=== PATIENT | female | born 1960 | race Caucasian/White ===

== ENCOUNTER → 2017-09-04 13:41 | Outpatient (CLI) | payer OTHER, SELFPAY ==
--- NOTE | 2017-09-04 13:47 | RAD_ITS ---
STUDY: X-RAY - LUMBAR SPINE REASON FOR EXAM: Female, 57 years old. LBP, bilateral leg pain, left more than right TECHNIQUE: 3 view(s) of the lumbar spine were obtained. COMPARISON: None FINDINGS: Normal lumbar lordosis. There is minimal multilevel endplate spondylosis of the lumbar vertebrae. There is multi-level degenerative disc disease with multi-level disc space narrowing. The soft tissue structures are unremarkable. RAD/Lumbar Spine 2 or 3 Views IMPRESSION: Mild degenerative changes of the spine. Electronically Signed: Lidia Villarreal MD at 8:31 EDT Tel , Service support ,
--- NOTE | 2017-09-04 13:47 | RAD_ITS ---
STUDY: X-RAY - LEFT KNEE REASON FOR EXAM: Female, 57 years old. left knee pain -- NKI TECHNIQUE: 4 view(s) of the knee. COMPARISON: None. FINDINGS: Normal visualized distal femur. Normal visualized proximal tibia and fibula. Normal proximal tibiofibular articulation. There is moderate degenerative arthrosis of the medial femorotibial compartment. There is degenerative arthrosis of the lateral femorotibial compartment. There is degenerative arthrosis of the patellofemoral articulation. The soft tissue structures are unremarkable. RAD/Knee 4 or More Views IMPRESSION: Degenerative arthrosis. Electronically Signed: Lidia Villarreal MD at 8:31 EDT Tel , Service support ,
--- NOTE | 2017-09-04 14:30 | VDLE_ITS ---
Reason For Study: LEG PAIN AND SWELLING RIGHT LEFT GSV is normal. GSV is normal. CFV is compressible, spontaneous, phasic, CFV is compressible, spontaneous, phasic, competent and demonstrates normal competent, and demonstrates normal augmentation. augmentation. FV is compressible, spontaneous, phasic, FV is compressible, spontaneous, phasic, competent and demonstrates normal competent and demonstrates normal augmentation. augmentation. POP V is compressible, spontaneous, phasic, POP V is compressible, spontaneous, phasic, competent and demonstrates normal competent and demonstrates normal augmentation. augmentation. T/P Trunk is compressible. T/P Trunk is compressible. PTV is compressible. PTV is compressible. RT PerV is compressible. LT PerV is compressible. Procedure Exam performed in department. A preliminary report was called and/or faxed to Dr. matos. Interpretation Summary Deep veins of the lower extremities are bilaterally patent and compressible segmentally. There is no evidence of deep vein thrombosis on either side. Valvular competence appears intact within the proximal deep venous systems bilaterally. The greater saphenous veins appear bilaterally patent and compressible segmentally. Ordering Physician: Win Matos Referring Physician: Win Matos Chi Performed By: Dayana Grady RVT
== END ==
PROVIDERS: Family Provider Family Medicine Geriatric Medicine; PCP Family Medicine Geriatric Medicine; Visit Provider Family Medicine Geriatric Medicine
DX: M54.5 Low back pain (principal); M25.569 Pain in unspecified knee; R60.0 Localized edema
CPT/HCPCS: 72100; 73564; 93970

== ENCOUNTER → 2017-09-17 17:08 | Outpatient (CLI) | payer OTHER, SELFPAY ==
[2017-09-17 17:37] LABS: Absolute Lymphocyte Count 1.94 X10^3/ul (0.83-4.51); Absolute Neutrophil Count 5.8 X10^3/uL (2.0-7.7); Basophil# 0.01 X10^3/uL; Basophil% 0.1 % (0-1); Eosinophils% 1.2 % (0-5); Hematocrit 40.8 % (37-47); Lymphocyte # 1.94 X10^3/ul (4.0); Lymphocyte % 22.7 % (19-41); Mean Corp Hgb Conc 31.9 g/gl (32-36); Mean Corpuscular Hgb 27.3 pg (27.0-32.0); Mean Corpuscular Volume 85.7 fL (81-99); Mean Platelet Vol. 9.6 fl (6.2-12.0); Monocyte# 0.69 X10^3/uL; Monocyte% 8.1 % (0-10); Neutrophil % 67.7 % (47-70); Platelet Count 221 K/mm3 (150-450); RBC Distribution Width CV 14.1 % (11.6-14.6); RBC Distribution Width SD 44.1 fl (35.1-43.9); Red Blood Count 4.76 M/mm3 (4.2-5.4); White Blood Count 8.6 K/mm3 (4.4-11.0)
[2017-09-17 17:38] LABS: POSITIVE COUNT NO; POSITIVE DIFFERENTIAL NO; POSITIVE MORPHOLOGY NO
[2017-09-17 18:33] LABS: ALB/GLOB Ratio 0.9 RATIO (0.9-2.4); AST(SGOT) 16 U/L (15-37); Alanine Aminotransfer ALT/SGPT 25 U/L (13-56); Albumin, Serum 3.5 g/dL (3.2-5.0); Alkaline Phosphatase 65 U/L (45-117); Anion Gap 4 (5-15); BUN 21 mg/dL (7-18); BUN/Creat Ratio 23.8 RATIO (10-20); Calcium,Total 8.5 mg/dL (8.5-10.1); Chloride 104 mmol/L (98-107); Creatinine, Serum 0.88 mg/dL (0.55-1.02); EST Glomerular Filtration Rate 70 mL/min (>60); Est Glom Filt Rate - Afr Amer 85 mL/min (>60); Globulin 3.8 g/dL (2.2-4.2); Glucose 91 mg/dL (74-106); Protein, Total 7.3 g/dL (6.4-8.2); Sodium Level 138 mmol/L (136-145); Thyroid Stim Hormone (TSH) 1.85 uIU/mL (0.358-3.74)
[2017-09-19 07:14] LABS: Hep C Antibodies <0.1 s/co ratio (0.0-0.9)
== END ==
PROVIDERS: Family Provider Family Medicine Geriatric Medicine; PCP Family Medicine Geriatric Medicine; Visit Provider Family Medicine Geriatric Medicine
DX: I10 Essential (primary) hypertension (principal); Z13.89 Encounter for screening for other disorder
CPT/HCPCS: 36415; 80053; 84443; 85025; 86803

== ENCOUNTER → 2017-09-24 10:37 | Outpatient (CLI) | payer OTHER, SELFPAY ==
--- NOTE | 2017-09-24 10:41 | US_ITS ---
STUDY: SUPERFICIAL ULTRASOUND - PERISTERNAL SOFT TISSUES. REASON FOR EXAM: Female, 57 years old. Lump, mass, palpable. Lipoma? TECHNIQUE: A superficial ultrasound was performed with real-time and static valladares-scale imaging. COMPARISON: None. FINDINGS: Normal subcutaneous fat. No lipoma or other mass and no abnormal fluid collection. US/Chest IMPRESSION: Normal superficial soft tissue ultrasound. Electronically Signed: Óscar Lomax, at 14:59 EDT Tel , Service support ,
== END ==
PROVIDERS: Family Provider Family Medicine Geriatric Medicine; PCP Family Medicine Geriatric Medicine; Visit Provider Family Medicine Geriatric Medicine
DX: D17.9 Benign lipomatous neoplasm, unspecified (principal)
CPT/HCPCS: 76604

== ENCOUNTER → 2018-01-22 15:50 | Outpatient (CLI) | payer OTHER, SELFPAY ==
--- NOTE | 2018-01-22 15:53 | RAD_ITS ---
STUDY: X-RAY CHEST REASON FOR EXAM: Female, 57 years old. Cough TECHNIQUE: Frontal and lateral views of the chest COMPARISON: None. FINDINGS: The lungs are clear. There are no pleural effusions. There is no pneumothorax. The heart is normal in size. The visualized osseous structures are within normal limits. RAD/Chest PA and Lateral IMPRESSION: Clear lungs. Electronically Signed: Ethan Lauren, at 16:34 EDT Tel , Service support ,
[2018-01-22 17:19] LABS: Absolute Lymphocyte Count 1.14 X10^3/ul (0.83-4.51); Absolute Neutrophil Count 5.8 X10^3/uL (2.0-7.7); Basophil# 0.02 X10^3/uL; Basophil% 0.3 % (0-1); Eosinophil# 0.08 X10^3/uL; Hematocrit 39.7 % (37-47); Hemoglobin 13.1 g/dl (12.0-15.0); Lymphocyte # 1.14 X10^3/ul (4.0); Lymphocyte % 14.8 % (19-41); Mean Corpuscular Hgb 28.2 pg (27.0-32.0); Mean Corpuscular Volume 85.6 fL (81-99); Mean Platelet Vol. 10.7 fl (6.2-12.0); Monocyte# 0.68 X10^3/uL; Monocyte% 8.8 % (0-10); Neutrophil # 5.78 X10^3/uL (2.7-7.7); Platelet Count 252 K/mm3 (150-450); RBC Distribution Width CV 12.7 % (11.6-14.6); RBC Distribution Width SD 38.4 fl (35.1-43.9); Red Blood Count 4.64 M/mm3 (4.2-5.4); White Blood Count 7.7 K/mm3 (4.4-11.0)
[2018-01-22 17:28] LABS: International Normalized Ratio 0.9; Prothrombin Time (Protime)PT. 12.5 SECONDS (11.7-14.9)
[2018-01-22 17:29] LABS: Partial Thromboplast Time 28.1 Seconds (24.1-36.2)
[2018-01-22 17:42] LABS: POSITIVE COUNT NO; POSITIVE DIFFERENTIAL NO; POSITIVE MORPHOLOGY NO
[2018-01-27 03:06] LABS: Alternaria alternata <0.10 kU/L (Class 0); Bermuda Grass <0.10 kU/L (Class 0); Bluegrass, Kentucky <0.10 kU/L (Class 0); Cat Hair/Dander, Standard <0.10 kU/L (Class 0); D farinae Mite <0.10 kU/L (Class 0); D pteronyssinus <0.10 kU/L (Class 0); Dog Epithelia <0.10 kU/L (Class 0); Elm, American White <0.10 kU/L (Class 0); Oak, White <0.10 kU/L (Class 0); Plantain, English <0.10 kU/L (Class 0); Ragweed, Short/Common <0.10 kU/L (Class 0)
[2018-01-27 14:48] LABS: Mouse Urine <0.10 kU/L (Class 0)
== END ==
LOC: POLAB3 15:50 → RAD 15:52
PROVIDERS: Family Provider Family Medicine Geriatric Medicine; PCP Family Medicine Geriatric Medicine; Referring Provider Family Medicine Geriatric Medicine; Visit Provider Family Medicine Geriatric Medicine
DX: R05 Cough (principal); D68.8 Other specified coagulation defects; T78.40XA Allergy, unspecified, initial encounter
CPT/HCPCS: 36415; 71046; 85025; 85610; 85730; 86003

== ENCOUNTER → 2018-01-28 15:56 | Outpatient (CLI) | payer OTHER, SELFPAY ==
[2018-01-28 16:47] LABS: Erythrocyte Sedimentation Rate 8 mm/hr (0-30)
[2018-01-28 16:59] LABS: Vitamin B12 343 pg/mL (211-911)
== END ==
PROVIDERS: Family Provider Family Medicine Geriatric Medicine; PCP Family Medicine Geriatric Medicine; Visit Provider Family Medicine Geriatric Medicine
DX: G60.9 Hereditary and idiopathic neuropathy, unspecified (principal)
CPT/HCPCS: 36415; 82607; 85652

== ENCOUNTER → 2018-02-02 15:44 | Outpatient (CLI) | payer OTHER, SELFPAY ==
--- NOTE | 2018-02-02 15:46 | BI_ITS ---
MAMMOGRAPHY - BILATERAL SCREENING REASON FOR EXAM: Female, 57 years old. Routine annual screening examination. PERTINENT HISTORY: Non-contributory. TECHNIQUE: Digital bilateral breast jose ramon (3D mammographic acquisition) in the CC and MLO projections. 2-D mediolateral oblique (MLO) and craniocaudad (CC) views of both breasts were obtained. CAD: Full Field Digital Mammography with Computer Added Detection was performed. COMPARISON: Comparison is made with prior mammogram dated April 09, 2016 and April 05, 2015. FINDINGS: Breast Composition: The breasts are heterogeneously dense, which may obscure small masses. There are no dominant masses or suspicious calcifications. No other significant abnormalities are identified. There has been no significant change since the prior study. BI/SCREENING MAMM (CAD), BILAT IMPRESSION: Stable bilateral screening mammogram. Yearly follow-up mammogram recommended. (A) ASSESSMENT CATEGORY: BIRADS Category 1: Negative. A letter regarding these results will be sent to the patient by the facility within 30 days. Approximately 10% of breast cancers are not detected by mammography. A normal mammogram should not delay biopsy of a clinically suspicious abnormality. [id number] Electronically Signed: Charli Ramirez MD at 8:37 EDT Tel [phone], Service support ,
== END ==
PROVIDERS: Family Provider Family Medicine Geriatric Medicine; PCP Family Medicine Geriatric Medicine; Referring Provider Family Medicine Geriatric Medicine; Visit Provider Family Medicine Geriatric Medicine
DX: Z12.31 Encounter for screening mammogram for malignant neoplasm of breast (principal)
CPT/HCPCS: 77063; 77067

== ENCOUNTER → 2018-02-10 17:22 | Outpatient (CLI) | payer OTHER, SELFPAY ==
--- NOTE | 2018-02-10 16:30 | CER_PTH ---
PATIENT: ELIZABETH MACKENZIE LOC: [facility] #:[id number] AGE/SX: 64/F ROOM: RE02/10/[address]: Dr. Robina Castrejon MD : 1960 BED: DIS: SPEC #: [id number] RECD: 02/10/18 17:12 STATUS: ERVIN PASCALE #: [id number] JACKELINE: 02/10/18 16:[address]: Robina Ramirez DEPT: SURGICAL PATHOLOGY RECD BY: Karl George ENTERED: 02/11/18 10:06 SP TYPE: CERV OTHR DR: Dr. Win Matos MD Tissues: Uterine cervix, NOS Procedures: Surgery Specimen Level IV HEADER OPERATION: Polypectomy PRE-OP DIAGNOSIS: Cervical polyp TISSUE SUBMITTED: Cervical polyp MICROSCOPIC DIAGNOSIS Cervical polyp, polypectomy: Fragments of inflamed benign endocervical polyp with acute and chronic inflammation and squamous metaplasia. SJ:jana 11/8/18 MICROSCOPIC DESCRIPTION Slides are reviewed. GROSS DESCRIPTION Received in fixative is one container labeled with the patient's name and designated cervical polyp. The specimen consists of multiple fragments of hemorrhagic mucoid tissue that in aggregate measure 2.5 x 1 x 0.2 cm. The specimen is totally submitted in one cassette. / SJ:rg 02/11/18 TC:5 CPT: 67350
[2018-02-14 10:46] LABS: HPV APTIMA, High Risk Negative (Negative)
== END ==
PROVIDERS: Family Provider Family Medicine Geriatric Medicine; PCP Family Medicine Geriatric Medicine; Referring Provider Obstetrics & Gynecology; Visit Provider Obstetrics & Gynecology
DX: N39.0 Urinary tract infection, site not specified (principal); Z12.4 Encounter for screening for malignant neoplasm of cervix
CPT/HCPCS: 87086; 87088; 87624; 88175; 88305; G0145

== ENCOUNTER 2018-03-19 08:56 | Day surgery (SDC) | payer OTHER, SELFPAY ==
[2018-03-12 17:51] LABS: Hemoglobin 12.8 g/dl (12.0-15.0); Mean Corp Hgb Conc 32.8 g/gl (32-36); Mean Corpuscular Hgb 27.6 pg (27.0-32.0); Mean Corpuscular Volume 84.1 fL (81-99); Mean Platelet Vol. 10.2 fl (6.2-12.0); Platelet Count 248 K/mm3 (150-450); RBC Distribution Width CV 13.1 % (11.6-14.6); RBC Distribution Width SD 39.4 fl (35.1-43.9); Red Blood Count 4.64 M/mm3 (4.2-5.4); White Blood Count 6.4 K/mm3 (4.4-11.0)
[2018-03-12 17:53] LABS: Scan Indicated on CBC? Y/N NO
[2018-03-12 17:57] LABS: Prothrombin Time (Protime)PT. 12.8 SECONDS (11.7-14.9)
[2018-03-12 17:58] LABS: Partial Thromboplast Time 27.6 Seconds (24.1-36.2)
[2018-03-12 18:48] LABS: Anion Gap 9 (5-15); BUN 22 mg/dL (7-18); BUN/Creat Ratio 26.3 RATIO (10-20); Calcium,Total 8.9 mg/dL (8.5-10.1); Chloride 104 mmol/L (98-107); Creatinine, Serum 0.84 mg/dL (0.55-1.02); EST Glomerular Filtration Rate 74 mL/min (>60); Est Glom Filt Rate - Afr Amer 90 mL/min (>60); Follicle Stimulating Hormone 85.9 mIU/mL; Glucose 89 mg/dL (74-106); Potassium 3.4 mmol/L (3.5-5.1); Sodium Level 141 mmol/L (136-145)
[2018-03-19] VITALS (10 sets, daily range): BP systolic 123–137; BP diastolic 76–98; PULSE 86–121; RESP 14–16; TEMP 36.2–36.9; O2SAT 94–97; BMI 41.4
--- NOTE | 2018-03-19 | EMB_PTH ---
PATIENT: ELIZABETH MACKENZIE LOC: [facility] [place] U#:[id number] AGE/SX: 57/F ROOM: RE03/19/[address]: Dr. Robina Castrejon MD : 1960 BED: DIS: 03/19/2018 SPEC #: [id number] RECD: 03/19/18 13:12 STATUS: ERVIN REDeja #: [id number] JACKELINE: 03/19/18 00:[address]: Robina Ramirez DEPT: SURGICAL PATHOLOGY RECD BY: Brian Cosme ENTERED: 03/19/18 13:12 SP TYPE: ENDOM BX/C OTHR DR: Dr. Win Matos MD Tissues: Endometrium, NOS Procedures: Surgery Specimen Level IV HEADER OPERATION: Hysteroscopy, dilation and curettage, polypectomy, Symphion PRE-OP DIAGNOSIS: Polyp of cervix uteri and postmenopausal bleeding TISSUE SUBMITTED: Endometrial curettings MICROSCOPIC DIAGNOSIS Endometrium, curettings: Polypoid fragments of disordered endometrium to simple hyperplasia without atypia. Focal dystrophic microcalcifications. AM:jana 03/20/18 COMMENT The tissue may represent fragments of polyp/polyps. Clinical correlation is suggested. MICROSCOPIC DESCRIPTION Slides are reviewed. GROSS DESCRIPTION Received in fixative is one container labeled with the patient's name and designated endometrial curettings. The specimen consists of multiple irregular fragments of pink-red soft tissue mixed with mucoid tissue that in aggregate measure 3 x 2.5 x 0.3 cm. The entire specimen is submitted in one cassette. / SJ:jana 03/19/18 TC:5 CPT: 94082
--- NOTE | 2018-03-19 07:15 | PCM.HPOB.BLA ---
- Problem List (1) Postmenopausal bleeding Status: Acute History and Physical Date of Admission: 03/19/18 Date: 03/12/2018 Name: GINETTE MACKENZIE Age: 57 Date of : 1960 HISTORY OF PRESENT ILLNESS: On 03/12/2018, Ginette Mackenzie, a 57 year old female 2 0 0 0 2, presented for: -- Pre-Op -- Ginette is being seen for pre op. Pt will be having hs, d and c and polypectomy on 03-19-18. Allergies and Medications are gone over. Pt is NOT allergic to Mobic. She is on Meloxicam. Consents signed and informetion gone over for surgery. AM ALLERGIES: No Known Drug Allergies, Mobic, Rash and No Known Drug Allergies MEDICATIONS HISTORY: Current medications prescribed by our practice are: 1. clobetasol 0.05 % topical cream, use for breakouts prn 2. Estrace 0.01% (0.1 mg/gram) vaginal cream, Apply vaginally qhs x 2 weeks, then use 3x a week Patient is also takin. Synthroid 150 mcg tablet, 1 PO QD 2. valsartan 320 mg-hydrochlorothiazide 12.5 mg tablet 3. meloxicam 15 mg tablet, daily REVIEW OF SYSTEMS: GENERAL - Denies fever, or chills SKIN - Denies skin changes EYES - Denies visual changes EARS - Denies difficulty hearing NOSE - Denies nasal congestion or bleeding MOUTH - Denies sore throat or difficulty swallowing NECK - Denies pain or swelling RESPIRATORY - Denies shortness of breath or wheezing CARDIOVASCULAR - Denies palpitations or chest pain GASTROINTESTINAL - Denies nausea, vomiting, diarrhea, constipation GENITOURINARY - Denies dysuria, frequency of urination, incontinence of urine MUSCULOSKELETAL - Denies joint or muscle pain NEUROLOGICAL - Denies localized numbness or weakness PSYCHIATRIC - Denies depression or anxiety ENDOCRINE - Denies heat or cold intolerance, weight loss or gain HEMATO-IMMUNOLOGIC - Denies excesive bleeding with cuts SURGICAL HISTORY: 1. Thyroid surgery x 2 2. neck cyst removed 3. polyp removed from cervix 4. 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 Illicit Drug Use - denies use of street drugs Sexual Activity - Residence - owns a home Hours Worked - 40 hours per week Spouse-Sig Other Name - Italo Spouse-Sig Other Occupation - [employer] Control - vasectomy PHYSICAL EXAMINATION BP- 140/96 Sitting, Right arm, regular cuff Weight- 244.40 lbs Height- 63.00 inch BMI:43.38 CONSTITUTIONAL - NAD, well nourished, and well developed SKIN - No rash, lesions, or ulcers HEENT - Normocephalic, PERRLA, EOMI LUNGS - CTA x2 without wheezes, crackles or rales CARDIAC - Regular rate and rhythm without rubs, murmurs, or gallops ABDOMEN - Without hepatosplenomegaly, distention, masses, rebound, or guarding; normal bowel sounds; no hernias EXTREMITIES - No edema or calf tenderness NEUROLOGICAL - normal gait, normal balance, normal motor PSYCHIATRIC - A and O to time, place, person, mood and affect ASSESSMENT: PLAN BY DIAGNOSIS: 1. Polyp Of Cervix Uteri and Postmenopausal Bleeding US showed 3mm endometrial stripe, no clear evidence of polyp but I suspect residual cervical polyp Plan hysteroscopy, dilation and curettage, polypectomy as indicated r/b/i/a procedure reviewed Consents signed, transfusion acceptable NPO @ [facility] prior to procedure, labs pending Medication(s) Stopped/Reason: Estrace 0.01% (0.1 mg/gram) vaginal cream - No Longer Needed
[2018-03-19 09:26] LABS: Internal QC Validated? YES +Cl - CLEAR BKGD
[2018-03-19 09:30] LABS: Pregnancy, Urine Negative Negative
--- NOTE | 2018-03-19 11:31 | PCM.OPRPT ---
Problem List (1) Postmenopausal bleeding Status: Acute Report of Operation Date of Procedure: 03/19/18 Pre-Operative Diagnosis: Postmenopausal bleeding Post-Operative Diagnosis: Postmenopausal bleeding, endometrial polyp Surgery/Procedure Performed:: Hysteroscopic polypectomy, dilation and curettage Description of Surgical Findings:: endometrial polyps and submucosal fibroids present Type of Anesthesia:: Local MAC Anesthesiologist: Tony Hernandez Specimen's removed: endometrial curettings Drains: UO not recorded Estimated Blood Loss (mL): 2 Fluids Replaced: 500 Description of Procedure: Indications: 57-year-old postmenopausal para 2001 presents with postmenopausal bleeding. She had a pelvic ultrasound demonstrating a 3 mm endometrial stripe without any other findings. She was counseled regarding the need for endometrial sampling and advised hysteroscopy, patient curettage and polypectomy as indicated. Risks, benefits, indications and alternatives were reviewed at length. Procedure: The patient was brought to the operating room and Center was performed. She is placed in a dorsal supine position and MAC initiated. She placed into dorsal lithotomy and examination under anesthesia performed. The perineum was prepped and draped in sterile fashion and straight catheterization of the bladder performed. A weighted speculum was placed into the vagina the cervix grasped the anterior cervical lip using a single-tooth tenaculum. The uterus sounded to 9 cm and the cervix was up dilated. Hysteroscopy was performed demonstrating 2 endometrial polyps and some submucosal fibroids. There were normal tubal ostia by laterally. I then proceeded with the simply on resectoscope performing polypectomy with endometrial biopsy. The scope was removed and sharp curettage performed. The procedure was complete. The tenaculum was removed and speculum removed from the vagina. There was good hemostasis. The patient was placed into dorsal supine position, awakened and transferred to recovery room without complication. Sponge counts were correct x2. Patient tolerated the procedure well. Hysteroscopic fluid used 1000 mL. - Complications None - Admit VTE Documentation VTE Mechan Device Prophylaxis: SCD's VTE Pharm Prophylaxis ordered?: No
--- NOTE | 2018-03-19 11:54 | EKGRS_ITS ---
Test Reason : POST OP Blood Pressure : / mmHG Vent. Rate : 108 BPM Atrial Rate : 092 BPM P-R Int : 000 ms QRS Dur : 082 ms QT Int : 370 ms P-R-T Axes : 000 -12 004 degrees QTc Int : 495 ms Atrial fibrillation Inferior infarct , age undetermined Abnormal ECG No previous ECGs available Confirmed by IRAIS RAM, BAKARI ([id number]), medical transcription editor MAGDALENA PEREZ ([id number]) on 03/20/2018 11:21:36 AM Referred By: Robina Ronquillo Confirmed By:BAKARI BRAXTON MD
[2018-03-19] MEDS: Ketorolac 15 MG/ML Vial IV (12:13)
--- NOTE | 2018-03-19 12:17 | DCINST_ITS ---
Discharge Diet: No Restrictions Discharge Activity: Return to Normal Activity, May Drive, May Shower, May Take a Tub Bath May resume sexual activity in: 4 weeks Call your doctor if you observe: Fever of 101 or Higher, Inability to urinate, Inability to have a bowel movement, Using more than one pad per hour, Shortness of breath, Chest pain, Calf discomfort, Uncontrolled pain Allergies/Adverse Reactions: Allergies latex Allergy (Verified 03/19/18 09:18) Itching meloxicam [From Mobic] Allergy (Verified 03/19/18 09:18) Unknown Medications to take at Discharge Levothyroxine [Synthroid] 150 mcg PO DAILY 03/11/18 Meloxicam 15 mg PO DAILY 03/11/18 Omeprazole 20 mg PO DAILY 03/11/18 Valsartan/Hydrochlorothiazide [Valsartan-Hctz 320-12.5 mg Tab] 1 each PO DAILY 03/11/18 Primary Care Physician: Win Matos Chi, MD [Primary Care Provider] - Test Results: Test results from this visit will be discussed in further detail at your follow- up appointment, if applicable. Please Follow Up With: Robina Ronquillo MD When: 2 weeks
[2018-03-19 12:28] LABS: Albumin, Serum 3.8 g/dL (3.2-5.0)
[2018-03-19 12:32] LABS: Anion Gap 7 (5-15); BUN 20 mg/dL (7-18); BUN/Creat Ratio 25.9 RATIO (10-20); Chloride 107 mmol/L (98-107); Creatinine, Serum 0.77 mg/dL (0.55-1.02); EST Glomerular Filtration Rate 82 mL/min (>60); Est Glom Filt Rate - Afr Amer 99 mL/min (>60); Estimated Creatinine Clearance 69.61 ml/min; Glucose 82 mg/dL (74-106); Magnesium 2.2 mg/dL (1.6-2.6); Potassium 3.6 mmol/L (3.5-5.1); Sodium Level 142 mmol/L (136-145)
--- OUTSIDE RECORDS SUMMARY | 2018-05-05 02:17 | XMS RPT_ITS ---
:1960 Author Organization OHIP Support Name Relationship Address Phone LORNA MACKENZIE Unavailable [address] + [place] [address] UNITI Unavailable [address] + [place] [address] AVRILLORNA LITTLE Unavailable [address] + [place] [address] UNITI Unavailable [address] + [place] [address] AVRIL, LORNA Unavailable [address] + [place] [address] UNITI Unavailable [address] + [place] [address] AVRIL, LORNA Unavailable [address] + [place] [address] UNITI Unavailable [address] + [place] [address] AVRIL, LORNA Unavailable [address] + [place] [address] UNITI Unavailable [address] + [place] [address] AVRIL, LORNA Unavailable [address] + [place] [address] UNITI Unavailable [address] + [place] [address] AVRIL, LORNA Unavailable [address] + [place] [address] UNITI Unavailable [address] + [place] [address] AVRIL, LORNA Unavailable [address] + [place] [address] UNITI Unavailable [address] + [place] [address] AVRIL, LORNA Unavailable [address] + [place] [address] UNITI Unavailable [address] + [place] [address] AVRIL, LORNA Unavailable [address] + [place] [address] UNITI Unavailable [address] + [place] [address] AVRIL, LORNA Unavailable [address] + [place] [address] UNITI Unavailable [address] + [place] [address] AVRIL, LORNA Unavailable [address] + [place] [address] UNITI Unavailable [address] + [place] [address] AVRIL, LORNA Unavailable [address] + [place] [address] AVRIL GINETTE Unavailable Unavailable Unavailable AVRIL, LORNA Unavailable [address] + [place] [address] AVRILSANJAYEN Unavailable Unavailable Unavailable AVRIL, LORNA Unavailable [address] + [place] [address] UNITI Unavailable [address] + [place] [address] AVRLI, LORNA Unavailable [address] + [place] [address] UNITI Unavailable [address] + [place] [address] AVRIL, LORNA Unavailable [address] + [place] [address] UNITI Unavailable [address] + [place] [address] Care Team Providers Name Role Phone HOWARD SIN Attending Unavailable JEFFREY, HALI-CHI Referring Unavailable JEFFREY, HALI-CHI Primary Care Unavailable HOWARD SIN Attending Unavailable JEFFREY, HALI-CHI Referring Unavailable JEFFREY, HALI-CHI Primary Care Unavailable Papi Thomas Attending Unavailable Reynoso-Cash, Summer Referring Unavailable Del Gunn Attending Unavailable Jeffrey, Hali Chi Referring Unavailable Del Gunn Attending Unavailable Del Gunn Referring Unavailable Jeffrey, Hali Chi Primary Care Unavailable Del Gunn Attending Unavailable Del Gunn Referring Unavailable Jeffrey, Hali Chi Primary Care Unavailable Del Gunn Attending Unavailable Del Gunn Referring Unavailable Jeffrey, Hali Chi Primary Care Unavailable Del Gunn Attending Unavailable Gunn, Del Referring Unavailable Jeffrey, Hali Chi Primary Care Unavailable Del Gunn Consulting Unavailable Jeffrey, Hali Chi Attending Unavailable Jeffrey, Hali Chi Referring Unavailable Jeffrey, Hali Chi Primary Care Unavailable Jeffrey, Hali Chi Attending Unavailable Jeffrey, Hali Chi Primary Care Unavailable Jeffrey, Hali Chi Attending Unavailable Jeffrey, Hali Chi Primary Care Unavailable Jeffrey, Hali Chi Attending Unavailable Jeffrey, Hali Chi Primary Care Unavailable Jeffrey, Hali Chi Referring Unavailable Jeffrey, Hali Chi Attending Unavailable Jeffrey, Hali Chi Referring Unavailable Jeffrey, Hali Chi Primary Care Unavailable Jeffrey, Hali Chi Attending Unavailable Jeffrey, Hali Chi Primary Care Unavailable Reynoso-Cash, Summer Attending Unavailable Reynoso-Cash, Summer Referring Unavailable Jeffrey, Hali Chi Primary Care Unavailable Del Gunn Attending Unavailable Del Gunn Referring Unavailable Jeffrey, Hali Chi Primary Care Unavailable Del Gunn Consulting Unavailable Reynoso-Cash, Summer Attending Unavailable Reynoso-Cash, Summer Referring Unavailable Jeffrey, Hali Chi Primary Care Unavailable PROBLEMS PROBLEMS DATE TYPE CONDITION / CODE ATTENDING STATUS SOURCE 04/28/2018 Unknown Z01.810 - Encounter Del Gunn for preprocedural [facility] cardiovascular Hospital examination / Repository Z01.810(ICD-10) 04/22/2018 Unknown R94.31 - Abnormal Del Gunn Active [place] electrocardiogram Community [ECG] [EKG] / Hospital R94.31(ICD-10) Repository 04/22/2018 Unknown I49.9 - Cardiac Del Gunn Active [place] arrhythmia, Community unspecified / Hospital I49.9(ICD-10) Repository 04/22/2018 Unknown I49.3 - Ventricular Del Gunn Active [place] premature Community depolarization / Hospital I49.3(ICD-10) Repository 04/18/2018 Unknown Z13.220 - Encounter Del Gunn for screening for Community lipoid disorders / Hospital Z13.220(ICD-10) Repository 2018 Unknown G62.9 - Del Gunn Active [place] Polyneuropathy, Community unspecified / Hospital G62.9(ICD-10) Repository 2018 Unknown R40.0 - Somnolence / Del Gunn Active [place] R40.0(ICD-10) [facility] Hospital Repository 03/30/2018 Unknown I10 - Essential Martha, [place] Active [place] (primary) hypertension Community / I10(ICD-10) Hospital Repository 03/30/2018 Unknown I48.91 - Unspecified Martha, Papi Active [place] atrial fibrillation / Community I48.91(ICD-10) Hospital Repository 02/10/2018 Unknown Z12.4 - Encounter for Reynoso-Cash, Active [place] screening for [place] Community malignant neoplasm of Hospital cervix / Z12.4(ICD-10) Repository 02/10/2018 Unknown N39.0 - Urinary tract Reynoso-Cash, Active [place] infection, site not [place] Community specified / Hospital N39.0(ICD-10) Repository 01/22/2018 Unknown R05 - Cough / Jeffrey, Hali Chi Active [place] R05(ICD-10) [facility] Hospital Repository 09/04/2017 Unknown R60.0 - Localized Jeffrey, Hali Chi Active [place] edema / R60.0(ICD-10) [facility] Hospital Repository PROCEDURES PROCEDURES No Procedure Records FoundRESULTS RESULTS STRESS TEST ECHO W/ Observed: 04/28/2018 Status: F Source: [place] CONTRAST 8:54 AM [facility] REPOSITORY [facility] Cardiovascular Services [address] [place] [address] Stress Test Echo W/Contrast MR#: [id number] Acct: [id number] Name: GINETTE MACKENZIE Rep #: [id number] : 1960 58 From: Del Gunn MD Primary Care: Jeffrey RAM,Hali Chi Status: REG CLI Ordering Dr: Del Gunn MD Sex: F C Reason For Study: ARRHYTHMIA Stress Results Protocol: Casper Protocol Maximum Predicted HR: 162 bpm Target HR: 138 bpm % Maximum Predicted HR: 106 % DurationHeart Rate Stage (mm:ss) (bpm) BP Comment BASELINE 90 126/722.5 CC DEFINITY UNDILUTED GIVEN STAGE 1 3:00 134 140/70 STAGE 2 3:00 171 152/801.5CC DEFINITY RECOVERY 101 122/84 Stress Duration: 6:00 mm:ss Maximum Stress HR: 171 bpm Baseline Echocardiogram Findings The estimated ejection fraction is 65 %. Stress Echo Wall motion Data Resting WM Intermediate WM Stress WM Resting Wall Motion Wall Motion Stress No regional wall motion No regional wall motion abnormalities noted. abnormalities noted. EKG Data The baseline ECG displays normal sinus rhythm. The patient exercised according to the regular Casper protocol for a total duration of 6:00. The maximum heart rate attained was 173 beats per minute. This was 106% of maximum predicted heart rate. The patient exercised into stage 3 of the Casper protocol. During stress, there were no ST or T wave changes noted to suggest ischemia. No clinical angina was noted. Interpretation Summary The estimated ejection fraction is 65 %. Normal, adequate, treadmill echocardiogram. Negative for ischemia by EKG and echocardiographic criteria. No anginal symptoms noted. Rare PVCs noted. Appropriate blood pressure response to exercise. Average exercise capacity for age. Test terminated due to the attainment target heart rate and dyspnea. Final LVEF is 75%. Decreased sensitivity due to poor echo windows requiring Definity agent. No complications. Ordering Physician: Del Gunn Referring Physician: Del Gunn Performed By: Arnoldo Miner RCS 04/28/18 0853 Date Del Gunn MD CC: Del Gunn MD; Hali Mei MD Date Dictated: 04/23/18 1255 Date Transcribed: 04/28/18 0853 [employer]: Signed ECHOCARDIOGRAM COMPLETE Observed: 04/22/2018 Status: F Source: [place] 4:11 PM [facility] REPOSITORY [facility] Cardiovascular Services [address] [place] [address] Echo Complete 04/22/18 1456 MR#: [id number] Acct: [id number] Name: GINETTE MACKENZIE Rep #: [id number] : 1960 58 From: Del Gunn MD Attending Dr: Del Gunn MD Status: REG CLI Ordering Dr: Del Gunn MD Date: 04/22/18 Location: [facility] Sex: F C Admitted: Reason For Study: Arrhythmia Procedure This was a 2D Doppler, Color Flow transthoracic echocardiogram. Exam performed in department. Left Ventricle Normal size and thickness. The estimated ejection fraction is 65 %. Stage 1 diastolic dysfunction. No regional wall motion abnormalities noted. Right Ventricle Normal size and thickness. Normal systolic function. Atria Normal left atrium. Normal right atrium. Normal atrial septum. Mitral Valve The mitral valve is structurally normal. No prolapse or stenosis seen. Tricuspid Valve Normal tricuspid valve. Trivial tricuspid valve insufficiency. Right ventricular systolic pressure estimated to be 29 mmHg. Aortic Valve Normal aortic valve. Trisinus/trileaflet aortic valve. Pulmonic Valve Normal pulmonic valve. Great Vessels Normal aortic root. Normal arch. Normal inferior vena cava. Inferior vena cava collapse with sniff. Pericardium/Pleural No pericardial effusion. MMode/2D Measurements AND Calculations LVIDd: 4.2 cm IVSd: 1.0 cm Ao root diam: 3.1 cm LVIDs: 2.4 cm LVPWd: 1.1 cm RVDd: 3.0 cm FS: 43.9 % LAV(MOD-bp): 30.8 ml LVAd ap4: 23.9 cm2 SV(MOD-sp4): 35.7 ml LAV(MOD-bp) Indexed: 14.3 ml/m2 EDV(MOD-sp4): 61.1 ml LAV(MOD-sp2): 27.4 ml EDV(sp4-el): 62.5 ml LAV(MOD-sp4): 37.4 ml LVAs ap4: 14.0 cm2 ESV(MOD-sp4): 25.4 ml ESV(sp4-el): 25.2 ml EF(MOD-sp4): 58.4 % EF(sp4-el): 59.7 % SV(sp4-el): 37.3 ml LA A4 area: 15.8 cm2 LA dimension(2D): 4.1 cm RA A4 area: 12.4 cm2 Doppler Measurements AND Calculations MV E max ravi: 80.0 cm/sec Lat Peak E' Ravi: 6.0 cm/sec Med Peak E' Ravi: 7.7 cm/sec MV A max ravi: 89.8 cm/sec E/E' lat: 13.3 E/E' med: 10.3 MV E/A: 0.89 Ao V2 max: 160.3 cm/sec LV V1 max: 121.5 cm/sec PA V2 max: 90.6 cm/sec Ao max P.3 mmHg LV V1 max P.9 mmHg Ao V2 mean: 110.4 cm/sec Ao mean P.4 mmHg Ao V2 VTI: 27.2 cm TR max ravi: 253.5 cm/sec TR max P.7 mmHg Interpretation Summary The estimated ejection fraction is 65 %. Stage 1 diastolic dysfunction. Right ventricular systolic pressure estimated to be 29 mmHg. There is no comparison study available. Ordering Physician: Del Gunn Referring Physician: Hali Mei Chi Performed By: Noemi Mendez RDCS, RVT 04/22/18 1611 Date Del Gunn MD CC: Del Gunn MD; Hali Mei MD Date Dictated: 04/22/18 1456 Date Transcribed: 04/22/18 1611 [employer]: Signed LIVER PROFILE Collected: 04/18/2018 Status: F Source: [place] 7:04 AM [facility] REPOSITORY TYPE CODE TESTS RESULT OUT OF RANGE REFERENCE UNITS LAB L501.1500 6.4-8.2 g/dL Normal T PROT 7.3 LAB L501.1800 3.2-5.0 g/dL Normal ALB 3.7 LAB L501.1950 2.2-4.2 g/dL Normal GLOB 3.6 LAB L501.4100 15-37 U/L Normal AST 19 LAB L501.4305 45-117 U/L Normal ALK P 66 LAB L501.4405 13-56 U/L Normal ALT 31 LAB L501.4600 0.20-1.00 mg/dL Normal T BILI 0.30 LAB L501.4700 0.00-0.30 mg/dL Normal D BILI 0.11 Performed By: #### L500.3400, L500.4100 #### [facility] [address] [place], [address] LIPID PROFILE Collected: 04/18/2018 Status: F Source: [place] 7:04 AM [facility] REPOSITORY TYPE CODE TESTS RESULT OUT OF RANGE REFERENCE UNITS LAB L501.4900 200 mg/dL Normal CHOL 138 Result Comment: <200 mg/dL Desirable 200-240 mg/dL Borderline >240 mg/dL High Risk LAB L501.5000 mg/dL Normal TRIG 93 Result Comment: The drugs N-Acetylcysteine and Metamizole may falsely depress this assay. Serum Triglycerides Reference Interval Normal <150 mg/dL Borderline high 150 - 199 mg/dL High 200 - 499 mg/dL Very High > or = 500 mg/dL LAB L501.6400 mg/dL Normal HDL 52 Result Comment: The drugs N-Acetylcysteine and Metamizole may falsely depress this assay. Reference Range HDL <40 mg/dL Low HDL Cholesterol HDL >or= 60 mg/dL High HDL Cholesterol LAB L501.6500 0-130 mg/dL Normal LDL 67 LAB L501.6600 5-40 mg/dL Normal VLDL 19 Performed By: #### L500.3400, L500.4100 #### [facility] [address] [place], [address] CARDIOLOGY VISIT Observed: 2018 Status: F Source: [place] REPORT 4:17 PM [facility] REPOSITORY [facility] [address] [place] [address] OFFICE VISIT Date of Service: 04/14/18 MR#: [id number] Acct: [id number] Name: GINETTE MACKENZIE Rep #: [id number] : 1960 Provider: Del Gunn MD Age/Sex: 58/F Location: [facility] Status: Signed HPI HPI Chief Complaint: PVCs/Bigeminy Details: GINETTE MACKENZIE, is a 58 F who presents to the office today for evaluation of palpitations. Specifically the patient has a history of hypertension, hypothyroidism, hyperlipidemia, and apparently has had vaginal bleeding requiring a D AND C on 03/19/18. Towards the end of her surgical procedure, and while she was on the table it was noted the patient had a tachycardic arrhythmia which appeared to be SVT for period of 4-5 beats. At that time in the PACU she was hooked up to telemetry which showed normal sinus rhythm and ventricular bigeminy. Patient has no known cardiac history. On further history patient denies any exertional chest pain, angina, but has limitations due to her knee pain and arthritis. She has complained of progressively worsening dyspnea on exertion however over the last several months. She denies any palpitations except for when she goes to lay down and sleep at night. While sleeping the patient snores excessively, has woken herself up with her own snoring, feels tired when she wakes up, and takes a nap almost every day at lunchtime on a regular basis. In addition she complains of bilateral lower extremity edema which is present despite being on hydrochlorothiazide. In our office today her blood pressure is 130/72, pulse is 92 and regular. Her physical exam shows clear lungs bilaterally, regular rate and rhythm, normal S1/S2, no S3 or S4. Twelve-lead EKG dated 03/19/18 shows normal sinus rhythm, PACs, normal axis, normal intervals, low voltage in the limb leads only. Intake Vital Signs04/14/18 Height 5 ft 4 in 04/14/18 Weight: 241 lb 04/14/18 Body Mass Index (BMI) 41.3 04/14/18 Blood Pressure 130/70 H Intake Visit Reasons: ABN EKG DURING D AND C (SELF) Tile Conduit Layer Required: No Is patient in pain?: Yes (left foot neuropathy) Pain scale (1-10): 5 Allergies latex Allergy (Verified 04/14/18 15:52) Itching Medications Levothyroxine [Synthroid] 150 mcg PO DAILY 03/11/18 [History Confirmed 04/09/18] Meloxicam 15 mg PO DAILY 03/11/18 [History Confirmed 04/09/18] Omeprazole 20 mg PO DAILY 03/11/18 [History Confirmed 04/09/18] Valsartan/Hydrochlorothiazide [Valsartan-Hctz 320-12.5 mg Tab] 1 ea PO DAILY 03/11/18 [History Confirmed 04/09/18] glucosamine sulfate dipotassium chloride 1,000 mg tablet 1,000 mg PO BID tab 04/14/18 [History Confirmed 04/14/18] metoprolol tartrate 25 mg tablet 12.5 mg PO BID #30 tab 04/14/18 [Rx Confirmed 04/14/18] omega-3 fatty acids 1,000 mg capsule 1,000 mg PO DAILY 04/14/18 [History Confirmed 04/14/18] potassium chloride ER 10 mEq capsule,extended release 10 meq PO DAILY #30 cap 04/14/18 [Rx Confirmed 04/14/18] [facility] History Preop cardiovascular exam (Acute) Peripheral neuropathy (Chronic) Bigeminy (Acute) Premature ventricular contractions (Acute) Abnormal EKG (Acute) Postmenopausal bleeding (Acute) Surgical History History of cervical polypectomy (Chronic) History of removal of neck cyst (Chronic) History of thyroid surgery (Chronic) [place] teeth extracted (Chronic) Family History Unknown No problems noted. Social History Smoking Status: Never smoker ROS Const Const: Positive for other (Had a cold for last 2 weeks. Otherwise ok.); negative for fatigue, weakness, body ache, fever(s), headache(s), chills, frequent falls, night sweats, daytime sleepiness, difficulty sleeping, excessive sweating, weight gain, weight loss, increased appetite, poor appetite or anorexia Eyes Eyes: Negative for blind spots, loss of peripheral vision, transient loss of vision, blurry vision, change in vision, double vision, floaters, tunnel vision or other ENT ENT: Negative for headache(s), dizziness, hearing loss, tinnitus, Nosebleed/epistaxis, balance problems, post nasal drip, lip swelling, tongue swelling, bleeding gums, hoarseness, neck pain, dry mouth or other Cardio Chest Pain: No Palpitations: Yes (just occasional lasting seconds, at night time) Edema: None Muscle aches with walking: Bilateral (Mild pitting, Dr. Mei checked veins.) Resp Respiratory: Positive for SOB with activity (occasionally); negative for SOB at rest, SOB orthopnea\SOB lying down, Cough, Coughing up blood/hemoptysis, chest congestion, pain on inspiration, snoring, stridor, wheezing, crackles, paroxysmal nocturnal dyspnea or other GI GI: Negative nausea, vomiting, heartburn, constipation, belching, bloating, cramping, vomiting blood/hematemesis, bright, red blood in stools, black,tarry stools, loose stools, Difficulty Swallowing or other : Negative for hematuria, frequent nighttime urination/ nocturia, erectile dysfunction or abnormal vaginal bleeding Musc Musc: Negative for balance problems, muscle aches/ myalgia, muscle weakness or joint pain Skin Skin: Negative redness, non-healing lesions, rash, unusual bruising, skin ulcer, wounds, jaundice or other Neuro Neuro: Negative for weakness, headache(s), frequent falls, blurry vision, double vision, dizziness, lightheadedness, near syncope, syncope, orthostatic symptoms, confusion, memory loss, restless legs, vertigo, seizures, lack of coordination or other Jensen Hematologic/Lymphatic: Negative for easy bleeding, easy bruising, enlarged lymph nodes or other Endo Endo: Negative for fatigue, excessive sweating, cold intolerance, heat intolerance, flushing, increased thirst/drinking, increased hunger, hair loss, hair growth or other Psych Psych: Negative for anxiety, depression, thoughts of harming anyone, thoughts of harming yourself, visual hallucinations, panic attacks or audible hallucinations Allergy Allergy/Immunology: Negative for lip swelling, Negative for tongue swelling, Negative for rash, Negative for throat swelling, Negative for hives Cardiology Exam Const Appearance: cooperative, healthy appearing and no acute distress Nutritional Appearance: well nourished Orientation: alert, oriented x3 and oriented to person Head Head: normal to inspection, atraumatic and normocephalic Nose: external nose normal Face and Sinus: face symmetric Mouth: oral mucosae normal Eyes General: appearance normal, both eyes and all related structures Eyelids: eyelids normal Conjunctivae: conjunctivae normal Pupils: PERRL and normal by confrontation EOM: EOM intact bilaterally Neck Neck: normal visual inspection and full ROM Carotids: normal carotid upstroke Chest Chest inspection: normal inspection of the chest Auscultation: Bilateral: Clear to Auscultation Cardio Palpation: normal PMI Rate: regular rate Rhythm: regular rhythm Heart sounds: S1 normal and S2 normal GI GI: normal to inspection, no hepatosplenomegaly and bowel sounds present Neuro General: alert, oriented x3, awake, CN's II-XI intact bilaterally and moves all extremities Skin Skin: no rashes or lesions noted Extremities Pulses: Normal: Right Femoral Pulse, Left Femoral Pulse, Right Dorsalis Pedis Pulse, Left Dorsalis Pedis Pulse, Right Posterior Tibial Pulse, Left Posterior Tibial Pulse, Right Radial Pulse, Left Radial Pulse Lower Extremity Edema: None: Bilateral Psych Psychological: normal affect Assessment AND Plan 1. Bigeminy I49.9 Plan 1. Ventricular bigeminy: Patient has several risk factors for possible coronary artery disease, and I am somewhat concerned that she has progressively worsening dyspnea on exertion. I recommended she undergo a 2D echo with Doppler to document her LV function, pulmonary pressures, and valvular status. The patient appears to have a loud P2 and physical exam. In addition I recommended that she undergo a treadmill echocardiogram with modified Casper protocol given her arthritis in her knees. My preference would be for her to walk on a treadmill as much as possible however it is acceptable to switch her to dobutamine if necessary. If either 1 of these are grossly abnormal, she may require diagnostic coronary angiogram. In the meantime we will start her on Lopressor 12.5 mg p.o. twice daily, and add potassium 10 mEq p.o. daily given her diuretic. In addition recommend that she undergo a fasting profile to complete her risk stratification. She will continue her valsartan/hydrochlorothiazide as well. Orders Orders: 2. Daytime somnolence R40.0 Plan 2. Daytime somnolence: The patient has signs and symptoms of possible obstructive sleep apnea which may be causing her palpitations, daytime somnolence, lower extremity edema, and hypertension. Recommend obtaining a sleep study. 3. Return office in 6 months. This note was generated using a voice recognition system and there may be incorrect words, spelling or punctuation that were not noted when reviewing the office note prior to saving. Orders Orders: Plan Detail Other Orders Orders: Other Medications New: Follow Up +6M (Gunn) Coding Level of Care Code Off vis,new,level 4 Diagnoses Bigeminy I49.9 Daytime somnolence R40.0 Coding Level of Care Code Off vis,new,level 4 Diagnoses Bigeminy I49.9 Daytime somnolence R40.0 Supplemental Info Supplemental Information Labs LDL Cholesterol 69 mg/dL (0-130) 02/06/13 HDL Cholesterol 55 mg/dL (40-) 02/06/13 Triglycerides 60 mg/dL (0-199) 02/06/13 VLDL Cholesterol 12 mg/dL (5-40) 02/06/13 Diagnostics Electrocardiogram 03/19/18 Chest X-Ray 01/22/18 Venous Doppler Study 09/04/17 04/14/18 1617 <Electronically signed by Del Gunn MD> Date Del Gunn MD Cosigner Signature: Date (if applicable) CC: Hali Mei MD 12 LEAD EKG W/ Observed: 03/20/2018 Status: F Source: [place] RHYTHM STRIP 11:22 AM [facility] REPOSITORY [facility] Cardiovascular Services [address] [place] [id number] 12 Lead EKG with Rhythm Strip 03/19/18 1157 MR#: [id number] Acct: [id number] Name: GINETTE MACKENZIE Rep #: [id number] : 1960 57 From: Papi Thomas MD Attending Dr: [place]ina Ronquillo MD Status: [facility] Ordering Dr: Tony Hernandez MD Date: 03/19/18 Location: [facility] Sex: F C Admitted: Test Reason : POST OP Blood Pressure : / mmHG Vent. Rate : 108 BPM Atrial Rate : 092 BPM P-R Int : 000 ms QRS Dur : 082 ms QT Int : 370 ms P-R-T Axes : 000 -12 004 degrees QTc Int : 495 ms Atrial fibrillation Inferior infarct , age undetermined Abnormal ECG No previous ECGs available Confirmed by PAPI THOMAS MD ([id number]), writer editor MAGDALENA PEREZ ([id number]) on 03/20/2018 11:21:36 AM Referred By: [place]ina Ronquillo Confirmed By:PAPI THOMAS MD 03/20/18 1121 Date Papi Thomas MD CC: Tony Hernandez MD; [place] Ronquillo MD; Hali Mei MD Signed DISCHARGE INSTRUCTION Observed: 03/19/2018 Status: F Source: [place] 12:17 PM [facility] REPOSITORY [facility] Medical Records Department [address] [place] [address] Instructions for Home/Discharge Instructions 03/19/18 1215 MR#: [id number] Acct: [id number] Name: GINETTE MACKENZIE Rep #: [id number] : 1960 57 From: [place]ina Castrejon MD PCP: Hali Mei MD, Chi Status: REG SDC Discharge Diet: No Restrictions Discharge Activity: Return to Normal Activity, May Drive, May Shower, May Take a Tub Bath May resume sexual activity in: 4 weeks Call your doctor if you observe: Fever of 101 or Higher, Inability to urinate, Inability to have a bowel movement, Using more than one pad per hour, Shortness of breath, Chest pain, Calf discomfort, Uncontrolled pain Allergies/Adverse Reactions: Allergies latex Allergy (Verified 03/19/18 09:18) Itching meloxicam [From Mobic] Allergy (Verified 03/19/18 09:18) Unknown Medications to take at Discharge Levothyroxine [Synthroid] 150 mcg PO DAILY 03/11/18 Meloxicam 15 mg PO DAILY 03/11/18 Omeprazole 20 mg PO DAILY 03/11/18 Valsartan/Hydrochlorothiazide [Valsartan-Hctz 320-12.5 mg Tab] 1 each PO DAILY 03/11/18 Primary Care Physician: Hali Mei Chi, MD [Primary Care Provider] - Test Results: Test results from this visit will be discussed in further detail at your follow-up appointment, if applicable. Please Follow Up With: Robina Ronquillo MD When: 2 weeks 03/19/18 1217 <Electronically signed by Robina Ronquillo MD> Date Summer Yg RAM CC: Hali Mei MD ALBUMIN, SERUM Collected: 03/19/2018 Status: F Source: [place] 12:00 PM [facility] REPOSITORY TYPE CODE TESTS RESULT OUT OF RANGE REFERENCE UNITS LAB L501.1800 3.2-5.0 g/dL Normal ALB 3.8 Performed By: #### L501.1800 #### [facility] [address] [place], [address] BASIC METABOLIC Collected: 03/19/2018 Status: F Source: [place] PROFILE (BMP) 12:00 PM [facility] REPOSITORY Order Comment: 'TROP' Serial specimen #1, #2 or #3: 1 TYPE CODE TESTS RESULT OUT OF RANGE REFERENCE UNITS LAB L501.0100 74-106 mg/dL Normal GLU 82 Result Comment: Please note revised GLUCOSE reference range effective 2017. LAB L501.1000 7-18 mg/dL High BUN 20 LAB L501.1100 0.55-1.02 mg/dL Normal CREAT,SERUM 0.77 Result Comment: The validity of the calculated GFR AND GFRAA in patients over 70 years has not been determined. Clinical correlation is essential. LAB L501.1110 >60 mL/min Normal EST GFR 82 Result Comment: Non- GFR Calc LAB L501.1115 >60 mL/min Normal EST GFR - AA 99 Result Comment: GFR Calc LAB L501.1255 ml/min Normal Estimated CRCL 69.61 LAB L501.1300 10-20 RATIO High BUN/CRE 25.9 LAB L501.2200 8.5-10 mg/dL Normal .1 CA 9.0 LAB L501.5300 136-14 mmol/L Normal 5 NA 142 LAB L501.5600 3.5-5. mmol/L Normal 1 K 3.6 LAB L501.5900 98-107 mmol/L Normal CL 107 LAB L501.6100 21.0-3 mmol/L Normal 2.0 CO2 28.0 LAB L501.6200 5-15 Normal GAP 7 Performed By: #### L500.2500, L501.4010, L501.5200 #### [facility] [address] [facility] [place], [address] TROPONIN-I Collected: 03/19/2018 Status: F Source: [place] 12:00 PM [facility] REPOSITORY Order Comment: 'TROP' Serial specimen #1, #2 or #3: 1 TYPE CODE TESTS RESULT OUT OF RANGE REFERENCE UNITS LAB L501.4010 <0.045 ng/mL Normal < 0.015 TROPONIN-I Result Comment: TROPONIN-I EXPECTED VALUES <0.045 Negative 0.045 - 0.590 Consistent with Cardiac Damage > OR = 0.600 Critical Value Not every elevated troponin is indicative of [place]. These values should be used with clinical judgement in examining the patient's clinical picture for diagnosis. To establish a diagnosis of [place] versus myocardial injury, there must be a demonstrated rise and/or fall in the troponin values, in addition to ischemic symptoms, EKG changes, new regional wall motion abnormality, and/or angiographical evidence. PLEASE NOTE: REFERENCE RANGES EDITED 17 Performed By: #### L500.2500, L501.4010, L501.5200 #### [facility] [address] [facility] [place], [address] MAGNESIUM Collected: 03/19/2018 Status: F Source: [place] 12:00 PM [facility] REPOSITORY Order Comment: 'TROP' Serial specimen #1, #2 or #3: 1 TYPE CODE TESTS RESULT OUT OF RANGE REFERENCE UNITS LAB L501.5200 1.6-2.6 mg/dL Normal MG 2.2 Performed By: #### L500.2500, L501.4010, L501.5200 #### [facility] [address] [facility] [place], [address] OPERATIVE REPORT Observed: 03/19/2018 Status: F Source: [place] 11:40 AM [facility] REPOSITORY [facility] Medical Records Department [address] [place] [address] Operative Report 03/19/18 1131 MR#: [id number] Acct: [id number] Name: GINETTE MACKENZIE Rep #: [id number] : 1960 57 From: Robina Castrejon MD PCP: Hali Mei MD, Chi Status: REG SDC Y Location: [place] [address] Problem List (1) Postmenopausal bleeding Status: Acute Report of Operation Date of Procedure: 03/19/18 Pre-Operative Diagnosis: Postmenopausal bleeding Post-Operative Diagnosis: Postmenopausal bleeding, endometrial polyp Surgery/Procedure Performed:: Hysteroscopic polypectomy, dilation and curettage Description of Surgical Findings:: endometrial polyps and submucosal fibroids present Type of Anesthesia:: Local MAC Anesthesiologist: Tony Hernandez Specimen's removed: endometrial curettings Drains: UO not recorded Estimated Blood Loss (mL): 2 Fluids Replaced: 500 Description of Procedure: Indications: 57-year-old postmenopausal para 2001 presents with postmenopausal bleeding. She had a pelvic ultrasound demonstrating a 3 mm endometrial stripe without any other findings. She was counseled regarding the need for endometrial sampling and advised hysteroscopy, patient curettage and polypectomy as indicated. Risks, benefits, indications and alternatives were reviewed at length. Procedure: The patient was brought to the operating room and Center was performed. She is placed in a dorsal supine position and MAC initiated. She placed into dorsal lithotomy and examination under anesthesia performed. The perineum was prepped and draped in sterile fashion and straight catheterization of the bladder performed. A weighted speculum was placed into the vagina the cervix grasped the anterior cervical lip using a single-tooth tenaculum. The uterus sounded to 9 cm and the cervix was up dilated. Hysteroscopy was performed demonstrating 2 endometrial polyps and some submucosal fibroids. There were normal tubal ostia by laterally. I then proceeded with the simply on resectoscope performing polypectomy with endometrial biopsy. The scope was removed and sharp curettage performed. The procedure was complete. The tenaculum was removed and speculum removed from the vagina. There was good hemostasis. The patient was placed into dorsal supine position, awakened and transferred to recovery room without complication. Sponge counts were correct x2. Patient tolerated the procedure well. Hysteroscopic fluid used 1000 mL. - Complications None - Admit VTE Documentation VTE Mechan Device Prophylaxis: SCD's VTE Pharm Prophylaxis ordered?: No 03/19/18 1140 <Electronically signed by Robina Ronquillo MD> Date Robina Ronquillo MD CC: Robina Ronquillo MD; Hali Mei MD Signed ,URINE Collected: 03/19/2018 Status: F Source: [place] 9:06 AM [facility] REPOSITORY Order Comment: Reason for Laboratory Test PRE OP TYPE CODE TESTS RESULT OUT OF REFERENCE UNITS RANGE LAB L400.8000 Negative Normal HCGUQUAL Negative Result Comment: Very dilute urine specimens, as indicated by a low specific gravity, may not contain novelties sales representative levels of hCG. If is still suspected, a first morning urine specimen should be collected 48 hours later and tested. Performed By: #### L400.7600 #### [facility] [address] [facility] [place], [address] HISTORY AND PHYSICAL Observed: 03/19/2018 Status: F Source: [place] EXAM 7:18 AM [facility] REPOSITORY [facility] Medical Records Department [address] [place] [address] History and Physical 03/19/18 0715 MR#: [id number] Acct: [id number] Name: GINETTE MACKENZIE Rep #: [id number] : 1960 57 From: Robina Castrejon MD PCP: Hali Mei MD, Chi Status: PRE SDC Y Location: [facility] - Problem List (1) Postmenopausal bleeding Status: Acute History and Physical Date of Admission: 03/19/18 Date: 03/12/2018 Name: GINETTE MACKENZIE Age: 57 Date of : 1960 HISTORY OF PRESENT ILLNESS: On 03/12/2018, Ginette Mackenzie, a 57 year old female 2 0 0 0 2, presented for: -- Pre-Op -- Ginette is being seen for pre op. Pt will be having hs, d and c and polypectomy on 03-19-18. Allergies and Medications are gone over. Pt is NOT allergic to Mobic. She is on Meloxicam. Consents signed and informetion gone over for surgery. AM ALLERGIES: No Known Drug Allergies, Mobic, Rash and No Known Drug Allergies MEDICATIONS HISTORY: Current medications prescribed by our practice are: 1. clobetasol 0.05 % topical cream, use for breakouts prn 2. Estrace 0.01% (0.1 mg/gram) vaginal cream, Apply vaginally qhs x 2 weeks, then use 3x a week Patient is also takin. Synthroid 150 mcg tablet, 1 PO QD 2. valsartan 320 mg-hydrochlorothiazide 12.5 mg tablet 3. meloxicam 15 mg tablet, daily REVIEW OF SYSTEMS: GENERAL - Denies fever, or chills SKIN - Denies skin changes EYES - Denies visual changes EARS - Denies difficulty hearing NOSE - Denies nasal congestion or bleeding MOUTH - Denies sore throat or difficulty swallowing NECK - Denies pain or swelling RESPIRATORY - Denies shortness of breath or wheezing CARDIOVASCULAR - Denies palpitations or chest pain GASTROINTESTINAL - Denies nausea, vomiting, diarrhea, constipation GENITOURINARY - Denies dysuria, frequency of urination, incontinence of urine MUSCULOSKELETAL - Denies joint or muscle pain NEUROLOGICAL - Denies localized numbness or weakness PSYCHIATRIC - Denies depression or anxiety ENDOCRINE - Denies heat or cold intolerance, weight loss or gain HEMATO-IMMUNOLOGIC - Denies excesive bleeding with cuts SURGICAL HISTORY: 1. Thyroid surgery x 2 2. neck cyst removed 3. polyp removed from cervix 4. 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 Drug Use - denies use of street drugs Sexual Activity - Residence - owns a home Hours Worked - 40 hours per week Spouse-Sig Other Name - Italo Spouse-Sig Other Occupation - [employer] Control - vasectomy PHYSICAL EXAMINATION BP- 140/96 Sitting, Right arm, regular cuff Weight- 244.40 lbs Height- 63.00 inch BMI:43.38 CONSTITUTIONAL - NAD, well nourished, and well developed SKIN - No rash, lesions, or ulcers HEENT - Normocephalic, PERRLA, EOMI LUNGS - CTA x2 without wheezes, crackles or rales CARDIAC - Regular rate and rhythm without rubs, murmurs, or gallops ABDOMEN - Without hepatosplenomegaly, distention, masses, rebound, or guarding; normal bowel sounds; no hernias EXTREMITIES - No edema or calf tenderness NEUROLOGICAL - normal gait, normal balance, normal motor PSYCHIATRIC - A and O to time, place, person, mood and affect ASSESSMENT: PLAN BY DIAGNOSIS: 1. Polyp Of Cervix Uteri and Postmenopausal Bleeding US showed 3mm endometrial stripe, no clear evidence of polyp but I suspect residual cervical polyp Plan hysteroscopy, dilation and curettage, polypectomy as indicated r/b/i/a procedure reviewed Consents signed, transfusion acceptable NPO @ MN prior to procedure, labs pending Medication(s) Stopped/Reason: Estrace 0.01% (0.1 mg/gram) vaginal cream - No Longer Needed 03/19/18717 <Electronically signed by Robina Ronquillo MD> Date Robina Ronquillo MD Cosigner Signature: Date (if applicable) CC: Robina Ronquillo MD; Hali Mei MD Signed ENDOMETRIAL BX/CURETTINGS Observed: 03/19/2018 Status: F Source: [place] 12:00 AM [facility] REPOSITORY Patient: GINETTE MACKENZIE : 1960 (57/F) Acct Num: [id number] Phys: Yg RAM,Summer Unit Num: [id number] Loc: [facility] Specimen: [id number] Received: 03/19/181311 Spec Type: ENDOM BX/C TISSUES 1 TISSUES: Endometrium, NOS COMMENT The tissue may represent fragments of polyp/polyps. Clinical correlation is suggested. GROSS DESCRIPTION Received in fixative is one container labeled with the patient's name and designated endometrial curettings. The specimen consists of multiple irregular fragments of pink-red soft tissue mixed with mucoid tissue that in aggregate measure 3 x 2.5 x 0.3 cm. The entire specimen is submitted in one cassette. / SJ:jana 03/19/18 TC:5 CPT: 21777 HEADER OPERATION: Hysteroscopy, dilation and curettage, polypectomy, Symphion PRE-OP DIAGNOSIS: Polyp of cervix uteri and postmenopausal bleeding TISSUE SUBMITTED: Endometrial curettings MICROSCOPIC DESCRIPTION Slides are reviewed. MICROSCOPIC DIAGNOSIS Endometrium, curettings: Polypoid fragments of disordered endometrium to simple hyperplasia without atypia. Focal dystrophic microcalcifications. AM:jana 03/20/18 Signed Jim Raines, DO 03/20/18 <signature on file> Performed By: #### PEMB #### [facility] [address] [facility]. [place], [place], [address] CBC-COMPLETE BLOOD CNT Collected: 03/12/2018 Status: F Source: [place] NO DIFF 5:17 PM [facility] REPOSITORY TYPE CODE TESTS RESULT OUT OF RANGE REFERENCE UNITS LAB L100.1000 4.4-11.0 K/mm3 Normal WBC 6.4 LAB L100.1200 4.2-5.4 M/mm3 Normal RBC 4.64 LAB L100.1300 12.0-15.0 g/dl Normal HGB 12.8 LAB L100.1400 37-47 % Normal HCT 39.0 LAB L100.1500 81-99 fL Normal MCV 84.1 LAB L100.1600 27.0-32.0 pg Normal MCH 27.6 LAB L100.1700 32-36 g/gl Normal MCHC 32.8 LAB L100.1810 11.6-14.6 % Normal RDW CV 13.1 LAB L100.1820 35.1-43.9 fl Normal RDW SD 39.4 LAB L100.1900 150-450 K/mm3 Normal PLT 248 LAB L100.2000 6.2-12.0 fl Normal MPV 10.2 Performed By: #### L100.0500 #### [facility] [address] [place], [place], [address] PROTHROMBIN TIME W/INR Collected: 03/12/2018 Status: F Source: [place] 5:17 PM [facility] REPOSITORY TYPE CODE TESTS RESULT OUT OF RANGE REFERENCE UNITS LAB L300.4150 11.7-14.9 SECONDS Normal PROTIME 12.8 LAB L300.4200 Normal INR 1.0 Performed By: #### L300.3900, L300.4310 #### [facility] [address] [place], [address] PARTIAL THROMBOPLAST Collected: 03/12/2018 Status: F Source: [place] TIME 5:17 PM [facility] REPOSITORY TYPE CODE TESTS RESULT OUT OF RANGE REFERENCE UNITS LAB L300.4310 24.1-36.2 Seconds Normal PTT 27.6 Performed By: #### L300.3900, L300.4310 #### [facility] [address] [place], [address] BASIC METABOLIC Collected: 03/12/2018 Status: F Source: [place] PROFILE (BMP) 5:17 PM [facility] REPOSITORY TYPE CODE TESTS RESULT OUT OF RANGE REFERENCE UNITS LAB L501.0100 74-106 mg/dL Normal GLU 89 Result Comment: Please note revised GLUCOSE reference range effective 2017. LAB L501.1000 7-18 mg/dL High BUN 22 LAB L501.1100 0.55-1.02 mg/dL Normal CREAT,SERUM 0.84 Result Comment: The validity of the calculated GFR AND GFRAA in patients over 70 years has not been determined. Clinical correlation is essential. LAB L501.1110 >60 mL/min Normal EST GFR 74 Result Comment: Non- GFR Calc LAB L501.1115 >60 mL/min Normal EST GFR - AA 90 Result Comment: GFR Calc LAB L501.1300 10-20 RATIO High BUN/CRE 26.3 LAB L501.2200 8.5-10.1 mg/dL CA Normal 8.9 LAB L501.5300 136-145 mmol/L NA Normal 141 LAB L501.5600 3.5-5.1 mmol/L Low K 3.4 LAB L501.5900 98-107 mmol/L CL Normal 104 LAB L501.6100 21.0-32.0 mmol/L Normal CO2 28.0 LAB L501.6200 5-15 Normal GAP 9 Performed By: #### L500.2500, L3100.5125 #### [facility] [address] [place], [address] FOLLICLE STIMULATING Collected: 03/12/2018 Status: F Source: [place] HORMONE 5:17 PM [facility] REPOSITORY TYPE CODE TESTS RESULT OUT OF RANGE REFERENCE UNITS LAB L3100.5125 mIU/mL Normal FSH 85.9 Result Comment: NORMAL REFERENCE RANGES FEMALE FOLLICULAR 2.3 - 12.6 mIU/mL MID-CYCLE PEAK 5.2 - 17.5 mIU/mL LUTEAL 1.7 - 12.9 mIU/mL POST-MENOPAUSAL ON MHT 5.9 - 72.8 mIU/mL NOT ON MHT 12.7 - 132.2 mlU/mL MALE 0.7 - 10.8 mIU/mL NEW TEST METHOD AND REFERENCE RANGES AUGUST 26, 2011 Performed By: #### L500.2500, L3100.5125 #### [facility] [address] [facility] [place], [address] TYPE AND SCREEN Collected: 03/12/2018 Status: F Source: [place] 5:17 PM [facility] REPOSITORY Order Comment: Surgery Date: 03/19/18 Hx of Preganancy in last 3 Months No Ever experience any problems with transfusion(s)? N Hx of Transfusion in last 3 Months N Reason for Type AND Screen/Red Cells: SURGERY SURGICAL PROCEDURE: HS D AND C POLYPECTOMY TYPE CODE TESTS RESULT OUT OF RANGE REFERENCE UNITS LAB B10.0800 O Normal BLOOD TYPE GEL NEGATIVE LAB B100.4000 Normal Antibody NEGATIVE Screen Performed By: #### B101.7475 #### [facility] [address] [place], [address] Observed: 02/10/2018 Status: F Source: [place] CULTURE, URINE 4:30 PM [facility] REPOSITORY Urine Culture Below infection level. ORGANISM 1: Mixed Gram Pos AND Gram Neg Org [place] Count 1000-10,000 Performed By: #### M100.0650 #### [facility] [address] [place], [address] CERVICAL Observed: 02/10/2018 Status: F Source: [place] 4:30 PM [facility] REPOSITORY Patient: GINETTE MACKENZIE : 1960 (57/F) Acct Num: [id number] Phys: Yg RAM,Summer Unit Num: [id number] Loc: [facility] Specimen: [id number] Received: 02/10/18 - 1711 Spec Type: CERV TISSUES 1 TISSUES: Uterine cervix, NOS - POLYP GROSS DESCRIPTION Received in fixative is one container labeled with the patient's name and designated cervical polyp. The specimen consists of multiple fragments of hemorrhagic mucoid tissue that in aggregate measure 2.5 x 1 x 0.2 cm. The specimen is totally submitted in one cassette. / LEVI:jana 02/11/18 TC:5 CPT: 61178 HEADER OPERATION: Polypectomy PRE-OP DIAGNOSIS: Cervical polyp TISSUE SUBMITTED: Cervical polyp MICROSCOPIC DESCRIPTION Slides are reviewed. MICROSCOPIC DIAGNOSIS Cervical polyp, polypectomy: Fragments of inflamed benign endocervical polyp with acute and chronic inflammation and squamous metaplasia. LEIV:jana 02/12/18 Signed Galindo Sommers 02/12/18 <signature on file> Performed By: #### PCER #### [facility] [place], [address] PAP IG HPV APTIMA Collected: 02/10/2018 Status: F Source: [place] ,45 4:30 PM [facility] REPOSITORY Order Comment: CYTOLOGY INFORMATION: - CLINICAL INFORMATION: POSTMENOPAUSAL BLEEDING - DATE LMP/MENOPAUSE: - COLLECTION VIAL: Thin Prep Vial - HOSIERY BAGGER SOURCE: CERVICAL/ENDOCERVICAL - COLLECTION TECHNIQUE: BRUSH/SPATULA Specimen Comment: [id number] Specimen Comment: Source.............Cervix;Endocervix Specimen Comment: Other..............PSYCHIATRIC SOCIAL WORKER SUPERVISOR Bleeding Specimen Comment: No. of containers..01 ThinPrep Vial TYPE CODE TESTS RESULT OUT OF RANGE REFERENCE UNITS LAB L7400.0800 . Normal DIAGN Comment Result Comment: NEGATIVE FOR INTRAEPITHELIAL LESION AND MALIGNANCY. LAB L7400.0900 . Normal ADEQ Comment Result Comment: Satisfactory for evaluation. Endocervical and/or squamous metaplastic cells (endocervical component) are present. LAB L7400.1400 . Normal PERFORM Comment Result Comment: Dayana Augustin, Sales Supervisor (ASCP) LAB L7400.2575 . Normal TEST METHOD Comment Result Comment: This liquid based ThinPrep(R) pap test was screened with the use of an image guided system. LAB L7400.2600 . Normal . COMM LAB L7400.2700 . Normal PAPSMR Comment Result Comment: The Pap smear is a screening test designed to aid in the detection of premalignant and malignant conditions of the uterine cervix. It is not a diagnostic procedure and should not be used as the sole means of detecting cervical cancer. Both false-positive and false-negative reports do occur. LAB L7400.2760 Negative Normal HPV APTIMA, Negative HR Result Comment: This test detects fourteen high-risk HPV types (16/18/31/33/35/39/45/ 51/52/56/58/59/66/68) without differentiation. Performed at: - [facility] [id number] Oven Loader: Graciela Knight MD, Phone: [phone] Performed at: = - [facility] [id number] Oven Loader: Graciela Knight MD, Phone: [phone] Performed By: #### L7400.0280 #### [facility] (refer to report for specific site) refer to report for address and phone number SCREENING MAMM (CAD), Observed: 02/02/2018 Status: F Source: [place] BILAT 3:46 PM [facility] REPOSITORY [facility] Imaging Services [address] [place] [address] SCREENING MAMM (CAD), BILAT MR#: [id number] Acct: [id number] Name: GINETTE MACKENZIE Rep #: [id number] : 1960 F 57 From: Charli Ramirez MD PCP: Jeffrey RAM,Hali Chi Status: REG CLI Study: SCREENING MAMM (CAD), BILAT Date of Exam: 02/02/18 Exam# [id number] Ordering Dr: Hali Mei MD MAMMOGRAPHY - BILATERAL SCREENING REASON FOR EXAM: Female, 57 years old. Routine annual screening examination. PERTINENT HISTORY: Non-contributory. TECHNIQUE: Digital bilateral breast jose ramon (3D mammographic acquisition) in the CC and MLO projections. 2-D mediolateral oblique (MLO) and craniocaudad (CC) views of both breasts were obtained. CAD: Full Field Digital Mammography with Computer Added Detection was performed. COMPARISON: Comparison is made with prior mammogram dated April 09, 2016 and April 05, 2015. FINDINGS: Breast Composition: The breasts are heterogeneously dense, which may obscure small masses. There are no dominant masses or suspicious calcifications. No other significant abnormalities are identified. There has been no significant change since the prior study. BI/SCREENING MAMM (CAD), BILAT IMPRESSION: Stable bilateral screening mammogram. Yearly follow-up mammogram recommended. (A) ASSESSMENT CATEGORY: BIRADS Category 1: Negative. A letter regarding these results will be sent to the patient by the facility within 30 days. Approximately 10% of breast cancers are not detected by mammography. A normal mammogram should not delay biopsy of a clinically suspicious abnormality. [id number] Electronically Signed: Charli Ramirez MD at 8:37 EDT Tel [phone], Service support , CC: Hali Mei MD Appraiser [employer]: Signed ERYTHROCYTE SED RATE Collected: 01/28/2018 Status: F Source: [place] 3:57 PM [facility] REPOSITORY TYPE CODE TESTS RESULT OUT OF RANGE REFERENCE UNITS LAB L102.0000 0-30 mm/hr Normal SED RATE 8 Performed By: #### L101.9900 #### [facility] [address] [place], [address] VITAMIN B12 Collected: 01/28/2018 Status: F Source: [place] 3:57 PM [facility] REPOSITORY TYPE CODE TESTS RESULT OUT OF RANGE REFERENCE UNITS LAB L503.0105 211-911 pg/mL Normal Vitamin B12 343 Performed By: #### L503.0105 #### [facility] [address] [place], [address] CHEST PA AND LATERAL Observed: 01/22/2018 Status: F Source: [place] 3:53 PM [facility] REPOSITORY [facility] Imaging Services [address] [address] Chest PA and Lateral MR#: [id number] Acct: [id number] Name: GINETTE MACKENZIE Rep #: [id number] : 1960 F 57 From: Ethan Lauren MD PCP: Hali Mei MD, Chi Status: REG CLI Study: Chest PA and Lateral Date of Exam: 01/22/18 Exam# [id number] Ordering Dr: Hali Mei MD STUDY: X-RAY CHEST REASON FOR EXAM: Female, 57 years old. Cough TECHNIQUE: Frontal and lateral views of the chest COMPARISON: None. FINDINGS: The lungs are clear. There are no pleural effusions. There is no pneumothorax. The heart is normal in size. The visualized osseous structures are within normal limits. RAD/Chest PA and Lateral IMPRESSION: Clear lungs. Electronically Signed: Ethan Lauren, at 16:34 EDT Tel , Service support , CC: Hali Mei MD [employer]: Signed PROTHROMBIN TIME W/INR Collected: 01/22/2018 Status: F Source: ROBERTA 3:52 PM [facility] REPOSITORY TYPE CODE TESTS RESULT OUT OF RANGE REFERENCE UNITS LAB L300.4150 11.7-14.9 SECONDS Normal PROTIME 12.5 LAB L300.4200 Normal INR 0.9 Performed By: #### L300.3900, L300.4310 #### [facility] [address] [place], [place], [address] PARTIAL THROMBOPLAST Collected: 01/22/2018 Status: F Source: MARQUETTE TIME 3:52 PM [facility] REPOSITORY TYPE CODE TESTS RESULT OUT OF RANGE REFERENCE UNITS LAB L300.4310 24.1-36.2 Seconds Normal PTT 28.1 Performed By: #### L300.3900, L300.4310 #### [facility] [address] [facility]. [place], [place], [address] CBC W/DIFF, AUTOMATED Collected: 01/22/2018 Status: F Source: [place] 3:52 PM [facility] REPOSITORY TYPE CODE TESTS RESULT OUT OF RANGE REFERENCE UNITS LAB L100.1000 4.4-11.0 K/mm3 Normal WBC 7.7 LAB L100.1200 4.2-5.4 M/mm3 Normal RBC 4.64 LAB L100.1300 12.0-15.0 g/dl Normal HGB 13.1 LAB L100.1400 37-47 % Normal HCT 39.7 LAB L100.1500 81-99 fL Normal MCV 85.6 LAB L100.1600 27.0-32.0 pg Normal MCH 28.2 LAB L100.1700 32-36 g/gl Normal MCHC 33.0 LAB L100.1810 11.6-14.6 % Normal RDW CV 12.7 LAB L100.1820 35.1-43.9 fl Normal RDW SD 38.4 LAB L100.1900 150-450 K/mm3 Normal PLT 252 LAB L100.2000 6.2-12.0 fl Normal MPV 10.7 LAB L100.2100 47-70 % High NEUT% 75.0 LAB L100.2200 19-41 % Low LY% 14.8 LAB L100.2300 0-10 % Normal MONO% 8.8 LAB L100.2400 0-5 % Normal EO% 1.0 LAB L100.2500 0-1 % Normal BASO% 0.3 LAB L100.2550 0.0-0.9 % Normal IM GRAN % 0.100 Result Comment: IG% - Immature Granulocytes (promyelocytes, myelocytes and metamyelocytes) > 1% indicates that a LEFT SHIFT is Present. LAB L100.2620 2.0-7.7 X10 3/uL Normal Absolute Neut 5.8 LAB L100.2720 0.83-4.51 X10 3/ul Normal Absolute Lymph 1.14 Performed By: #### L100.0100 #### [facility] [address] [place], [place], [address] ALLERGEN, MINI-RAST Collected: 01/22/2018 Status: F Source: [place] 3:52 PM [facility] REPOSITORY TYPE CODE TESTS RESULT OUT OF REFERENCE UNITS RANGE LAB L5500.1001 Class 0 kU/L D PTERONYSSINUS Normal <0.10 LAB L5500.1002 Class 0 kU/L D FARINAE MITE Normal <0.10 LAB L5500.2001 Class 0 kU/L CAT HAIR/DANDER Normal <0.10 LAB L5500.2002 Class 0 kU/L DOG EPITHELIA Normal <0.10 LAB L5500.4002 Class 0 kU/L BERMUDA GRASS Normal <0.10 LAB L5500.4008 Class 0 kU/L [place], [place] Normal <0.10 LAB L5500.5006 Class 0 kU/L A. ALTERNATA Normal <0.10 LAB L5500.6007 Class 0 kU/L [place], WHITE Normal <0.10 LAB L5500.6008 Class 0 kU/L [place],AMER WHITE Normal <0.10 LAB L5500.7001 Class 0 kU/L RAGWEED SH/COM Normal <0.10 LAB L5500.7009 Class 0 kU/L PLANTAIN,ENGLSH Normal <0.10 LAB L5500.7150 Class 0 kU/L Mouse Urine Normal <0.10 Result Comment: Performed at: [facility] Lab[address] [id number] Oven Loader: Jutsin Castellano MD, Phone: [phone] LAB L5500.4531 . Normal RAST COMMENT Comment Result Comment: Levels of Specific IgE Class Description of Class ----- < 0.10 0 Negative 0.10 - 0.31 0/I Equivocal/Low 0.32 - 0.55 I Low 0.56 - 1.40 II Moderate 1.41 - 3.90 III High 3.91 - 19.00 IV Very High 19.01 - 100.00 V Very High >100.00 Very High Performed By: #### L5500.0300 #### [facility] (refer to report for specific site) refer to report for address and phone number FREE T4 Collected: 11/20/2017 Status: F Source: [facility] 8:56 AM [facility] REPOSITORY TYPE CODE TESTS RESULT OUT OF RANGE REFERENCE UNITS LAB FT4 0.89-1.76 ng/dL Free T4 1.57 Performed By: #### FT4, TSH, THYBAT #### [address] [address] TSH, HIGH SENSITIVITY Collected: 11/20/2017 Status: F Source: [facility] 8:56 AM [facility] REPOSITORY TYPE CODE TESTS RESULT OUT OF REFERENCE UNITS RANGE LAB TSH 0.550-4.780 uIU/mL Low TSH, High Sensitivity 0.415 Performed By: #### FT4, TSH, THYBAT #### [address] [address] THYROGLOBULIN BATTERY Collected: 11/20/2017 Status: F Source: [facility] (THRY & THYRAB) 8:56 AM [facility] REPOSITORY TYPE CODE TESTS RESULT OUT OF REFERENCE UNITS RANGE LAB THYRAB <4.0 IU/mL Thyroglobulin Antibody <0.9 LAB THYRN 1.6-50 ng/mL *THYROGLOBULIN Low 0.1 Performed By: #### FT4, TSH, THYBAT #### [facility] [address] [place], [place] [address] CHEST Observed: 09/24/2017 Status: F Source: ROBERT[place] 10:41 AM [facility] REPOSITORY [facility] Imaging Services [address] [place] [address] Chest MR#: [id number] Acct: [id number] Name: GINETTE MACKENZIE Rep #: [id number] : 1960 F 57 From: Óscar Lomax MD PCP: Hali Mei MD, Chi Status: REG CLI Study: Chest Date of Exam: 09/24/17 Exam# [id number] Ordering Dr: Hali Mei MD STUDY: SUPERFICIAL ULTRASOUND - PERISTERNAL SOFT TISSUES. REASON FOR EXAM: Female, 57 years old. Lump, mass, palpable. Lipoma? TECHNIQUE: A superficial ultrasound was performed with real- time and static valladares-scale imaging. COMPARISON: None. FINDINGS: Normal subcutaneous fat. No lipoma or other mass and no abnormal fluid collection. US/Chest IMPRESSION: Normal superficial soft tissue ultrasound. Electronically Signed: Óscar Lomax, at 14:59 EDT Tel , Service support , CC: Hali Mei MD [employer]: Signed CBC W/DIFF, AUTOMATED Collected: 09/17/2017 Status: F Source: [place]ERT[place] 5:09 PM [facility] REPOSITORY TYPE CODE TESTS RESULT OUT OF RANGE REFERENCE UNITS LAB L100.1000 4.4-11.0 K/mm3 Normal WBC 8.6 LAB L100.1200 4.2-5.4 M/mm3 Normal RBC 4.76 LAB L100.1300 12.0-15.0 g/dl Normal HGB 13.0 LAB L100.1400 37-47 % Normal HCT 40.8 LAB L100.1500 81-99 fL Normal MCV 85.7 LAB L100.1600 27.0-32.0 pg Normal MCH 27.3 LAB L100.1700 32-36 g/gl Low MCHC 31.9 LAB L100.1810 11.6-14.6 % Normal RDW CV 14.1 LAB L100.1820 35.1-43.9 fl High RDW SD 44.1 LAB L100.1900 150-450 K/mm3 Normal PLT 221 LAB L100.2000 6.2-12.0 fl Normal MPV 9.6 LAB L100.2100 47-70 % Normal NEUT% 67.7 LAB L100.2200 19-41 % Normal LY% 22.7 LAB L100.2300 0-10 % Normal MONO% 8.1 LAB L100.2400 0-5 % Normal EO% 1.2 LAB L100.2500 0-1 % Normal BASO% 0.1 LAB L100.2550 0.0-0.9 % Normal IM GRAN % 0.200 Result Comment: IG% - Immature Granulocytes (promyelocytes, myelocytes and metamyelocytes) > 1% indicates that a LEFT SHIFT is Present. LAB L100.2620 2.0-7.7 X10 3/uL Normal Absolute Neut 5.8 LAB L100.2720 0.83-4.51 X10 3/ul Normal Absolute Lymph 1.94 Performed By: #### L100.0100 #### [facility] [address] [place], [address] COMPREHENSIVE METABOLIC Collected: 09/17/2017 Status: F Source: [facility] 5:09 PM [facility] REPOSITORY TYPE CODE TESTS RESULT OUT OF RANGE REFERENCE UNITS LAB L501.0100 74-106 mg/dL Normal GLU 91 Result Comment: Please note revised GLUCOSE reference range effective 2017. LAB L501.1000 7-18 mg/dL High BUN 21 LAB L501.1100 0.55-1.02 mg/dL Normal CREAT,SERUM 0.88 Result Comment: The validity of the calculated GFR AND GFRAA in patients over 70 years has not been determined. Clinical correlation is essential. LAB L501.1110 >60 mL/min Normal EST GFR 70 Result Comment: Non- GFR Calc LAB L501.1115 >60 mL/min Normal EST GFR - AA 85 Result Comment: GFR Calc LAB L501.1300 10-20 RATIO High BUN/CRE 23.8 LAB L501.1500 6.4-8.2 g/dL T Normal PROT 7.3 LAB L501.1800 3.2-5.0 g/dL Normal ALB 3.5 LAB L501.1950 2.2-4.2 g/dL Normal GLOB 3.8 LAB L501.2000 0.9-2.4 RATIO Normal A/G 0.9 LAB L501.2200 8.5-10.1 mg/dL CA Normal 8.5 LAB L501.4100 15-37 U/L Normal AST 16 Result Comment: Slight Hemolysis, Result may be falsely increased. LAB L501.4305 45-117 U/L Normal ALK P 65 LAB L501.4405 13-56 U/L Normal ALT 25 LAB L501.4600 0.20-1.00 mg/dL Normal T BILI 0.30 LAB L501.5300 136-145 mmol/L Normal NA 138 LAB L501.5600 3.5-5.1 mmol/L Normal K 4.0 Result Comment: Slight Hemolysis, Result may be falsely increased. LAB L501.5900 98-107 mmol/L Normal CL 104 LAB L501.6100 21.0-32.0 mmol/L Normal CO2 30.0 LAB L501.6200 5-15 Low 4 GAP Performed By: #### L500.4050, L501.9520 #### [facility] [address] [place], [place], [id number] THYROID STIM HORMONE Collected: 09/17/2017 Status: F Source: ROBERTA (TSH) 5:09 PM [facility] REPOSITORY TYPE CODE TESTS RESULT OUT OF RANGE REFERENCE UNITS LAB L501.9520 0.358-3.74 uIU/mL Normal TSH 1.85 Performed By: #### L500.4050, L501.9520 #### [facility] [address] [place], [place], [address] HEPATITIS C ANTIBODIES Collected: 09/17/2017 Status: F Source: [place] 5:09 PM [facility] REPOSITORY TYPE CODE TESTS RESULT OUT OF RANGE REFERENCE UNITS LAB L3100.0650 0.0-0.9 s/co ratio Normal HEP C AB <0.1 Result Comment: Negative: < 0.8 Indeterminate: 0.8 - 0.9 Positive: > 0.9 The CDC recommends that a positive HCV antibody result be followed up with a HCV Nucleic Acid Amplification test (098218). Performed at: - [facility] [address] [id number] Oven Loader: Louis Mariee PhD, Phone: [phone] Performed By: #### L3100.0625 #### [facility] (refer to report for specific site) refer to report for address and phone number VENOUS DUPLEX LOWER Observed: 09/15/2017 Status: F Source: [place] EXTREMITY 7:25 PM [facility] REPOSITORY [facility] Cardiovascular Services [address] [place] [address] Venous Duplex US - [facility] 09/04/17 1432 MR#: [id number] Acct: [id number] Name: GINETTE MACKENZIE Rep #: [id number] : 1960 57 From: Lobo Lew MD Attending Dr: Jeffrey RAM,Hali Nieves Status: REG CLI Ordering Dr: Hali Mei MD Date: 09/04/17 Location: CVS Sex: F C Admitted: Reason For Study: LEG PAIN AND SWELLING RIGHT LEFT GSV is normal. GSV is normal. CFV is compressible, spontaneous, phasic, CFV is compressible, spontaneous, phasic, competent and demonstrates normal competent, and demonstrates normal augmentation. augmentation. FV is compressible, spontaneous, phasic, FV is compressible, spontaneous, phasic, competent and demonstrates normal competent and demonstrates normal augmentation. augmentation. POP V is compressible, spontaneous, phasic, POP V is compressible, spontaneous, phasic, competent and demonstrates normal competent and demonstrates normal augmentation. augmentation. T/P Trunk is compressible. T/P Trunk is compressible. PTV is compressible. PTV is compressible. RT PerV is compressible. LT PerV is compressible. Procedure Exam performed in department. A preliminary report was called and/or faxed to Dr. mei. Interpretation Summary Deep veins of the lower extremities are bilaterally patent and compressible segmentally. There is no evidence of deep vein thrombosis on either side. Valvular competence appears intact within the proximal deep venous systems bilaterally. The greater saphenous veins appear bilaterally patent and compressible segmentally. Ordering Physician: Hali Mei Referring Physician: Hali Mei Chi Performed By: Dayana Grady RVEleazar 09/15/171924 Date Lobo Lew MD CC: Hali Mei MD Date Dictated: 09/04/171431 Date Transcribed: 09/15/171924 [employer]: Signed LUMBAR SPINE 2 OR 3 Observed: 09/04/2017 Status: F Source: [place] VIEWS 1:48 PM [facility] REPOSITORY [facility] Imaging Services [address] [place] [address] Lumbar Spine 2 or 3 Views MR#: [id number] Acct: [id number] Name: GINETTE MACKENZIE Rep #: [id number] : 1960 F 57 From: Lidia Villarreal PCP: Hali Mei MD, Chi Status: REG CLI Study: Lumbar Spine 2 or 3 Views Date of Exam: 09/04/17 Exam# [id number] Ordering Dr: Hali Mei MD STUDY: X-RAY - LUMBAR SPINE REASON FOR EXAM: Female, 57 years old. LBP, bilateral leg pain, left more than right TECHNIQUE: 3 view(s) of the lumbar spine were obtained. COMPARISON: None FINDINGS: Normal lumbar lordosis. There is minimal multilevel endplate spondylosis of the lumbar vertebrae. There is multi-level degenerative disc disease with multi- level disc space narrowing. The soft tissue structures are unremarkable. RAD/Lumbar Spine 2 or 3 Views IMPRESSION: Mild degenerative changes of the spine. Electronically Signed: Lidia Villarreal MD at 8:31 EDT Tel , Service support , CC: Hali Mei MD [employer]: Signed KNEE 4 OR MORE Observed: 09/04/2017 Status: F Source: MARQUETTE VIEWS 1:48 PM [facility] REPOSITORY [facility] Imaging Services [address] [place] [address] [place] [address] Knee 4 or More Views MR#: [id number] Acct: [id number] Name: GINETTE MACKENZIE Rep #: [id number] : 1960 F 57 From: Lidia Villarreal PCP: Jeffrey RAM,Hali Nieves Status: REG CLI Study: Knee 4 or More Views Date of Exam: 09/04/17 Exam# [id number] Ordering Dr: Hali Mei MD STUDY: X-RAY - LEFT KNEE REASON FOR EXAM: Female, 57 years old. left knee pain -- NKI TECHNIQUE: 4 view(s) of the knee. COMPARISON: None. FINDINGS: Normal visualized distal femur. Normal visualized proximal tibia and fibula. Normal proximal tibiofibular articulation. There is moderate degenerative arthrosis of the medial femorotibial compartment. There is degenerative arthrosis of the lateral femorotibial compartment. There is degenerative arthrosis of the patellofemoral articulation. The soft tissue structures are unremarkable. RAD/Knee 4 or More Views IMPRESSION: Degenerative arthrosis. Electronically Signed: Liida Villarreal MD at 8:31 EDT Tel , Service support , CC: Hali Mei MD [employer]: Signed ALLERGIES ALLERGIES DATE TYPE / CODE NAME / CODE REACTION SEVERITY SOURCE 2018 Drug latex/[id number] Itching Unknown [facility] Allergy/4160 8921(RXNORM) Hospital 12360(SNOMED Repository CT) 03/19/2018 Drug meloxicam/F0 Unknown Unknown [facility] Allergy/4160 58101556(RX Hospital 79807(SNOMED ORM) Repository CT) ENCOUNTERS ENCOUNTERS ADMIT/DISCHARGE ACCOUNT NUMBER ADMITTING ENCOUNTER LOCATION SOURCE CLASS 04/23/2018 [id number] Ambulatory BMSBuilding: [place] BMS.CF.[facility] Repository 04/23/2018 [id number] Ambulatory [facility] ding:CVS Repository 04/22/2018 [id number] Ambulatory BMSBuilding: [place] BMS.CF.[facility] Repository 04/22/2018 [id number] Ambulatory [facility] ding:CVS Repository 04/18/2018 [id number] Ambulatory [facility] ding:LAB Repository 04/14/2018/04/14/19 [id number] Ambulatory BMSBuilding: [place] 19 BMS.[facility] Repository 03/19/2018 [id number] Ambulatory BMSBuilding: [place] [facility] Repository 03/19/2018/03/19/20 [id number] Ambulatory [address] ding:SDCRoom Repository : AC12 02/10/2018 [id number] Ambulatory [facility] ding:LABSPEC Repository 02/02/2018 [id number] Ambulatory [facility] ding:OPBI Repository 01/28/2018 [id number] Ambulatory [facility] ding:POLAB3 Repository 01/22/2018 [id number] Ambulatory [facility] ding:RAD Repository 11/20/2017 [id number] Ambulatory Building:K1T [facility] Repository 11/20/2017 [id number] Ambulatory Building:[facility] Repository 09/24/2017 [id number] Ambulatory [facility] ding:US Repository 09/17/2017 [id number] Ambulatory [facility] ding:POLAB3 Repository 09/04/2017 [id number] [facility] ding:CVS Repository PAYERS PAYERS ENCOUNTER GUARANTOR PAYER SUBSCRIBER SOURCE 04/23/2018 GINETTE Tompkins Primary Insurance:MED GINETTE Granados [id number] MUTUAL TPAPolicy FETZERDOB: [facility] Number: [id number], [place] [id number] Repository [address]Ofn: (330) Date:7576-70-27[phone] () [address]PTJYVXJBD, [place] [address]UZ: CHECK WEBSITE 04/23/2018 Secondary NOT GIVENUNK [place] Insurance:SELF PAY [facility] Number: Effective Repository Date:2018-04-23 04/23/2018 GINETTE Tompkins Primary Insurance:MED GINETTE Granados [id number] MUTUAL TPAPolicy FETZERDOB: [facility] Number: [id number], [place] [id number] Repository [address]Cml: (330) Date:6253-97-32IZ [phone] () [address]77[address]EXZKIIUUI, [place] [address]ZG: CHECK WEBSITE 04/23/2018 Secondary NOT GIVENUNK [place] Insurance:SELF PAY [facility] Number: Effective Repository Date:2018 04/22/2018 GINETTE Tompkins Primary Insurance:MED GINETTE Granados [id number] MUTUAL TPAPolicy FETZERDOB: [facility] Number: [id number], [place] [id number] Repository [address]Rox: (330) Date:0141-96-15LN [phone] () 91767YXJRIFOAR, [place] [address]YW: CHECK WEBSITE 04/22/2018 Secondary NOT GIVENUNK [place] Insurance:SELF PAY [facility] Number: Effective Repository Date:2018-04-22 04/22/2018 GINETTE R Primary Insurance:MED GINETTE R [place] [id number] MUTUAL TPAPolicy FETZERDOB: [facility] Number: [id number], [place] [id number] Repository [address]Kor: (330) Date:3067-90-36NA [phone] () 618[address]HCWFKNKBK, [place] [address]EF: CHECK WEBSITE 04/22/2018 Secondary NOT GIVENUNK [place] Insurance:SELF PAY [facility] Number: Effective Repository Date:2018 04/18/2018 GINETTE R Primary Insurance:MED GINETTE R [place] [id number] MUTUAL TPAPolicy FETZERDOB: [facility] Number: [id number], [place] [id number] Repository [address]Fed: (330) Date:0867-06-99RE [phone] () [address]442DZHJNLIXQ, [place] [address]XJ: CHECK WEBSITE 04/18/2018 Secondary NOT GIVENUNK [place] Insurance:SELF PAY [facility] Number: Effective Repository Date:2018-04-18 2018 GINETTE R Primary Insurance:MED GINETTE R [place] [id number] MUTUAL TPAPolicy FETZERDOB: [facility] Number: [id number], [place] [id number] Repository [address]Pst: (330) Date:6393-74-77BD [phone] () [address]JVYGJTAJA, [place] [address]HD: CHECK WEBSITE 2018 Secondary NOT GIVENUNK [place] Insurance:SELF PAY [facility] Number: Effective Repository Date:2018 03/19/2018 GINETTE R Primary Insurance:MED GINETTE R [place] [id number] MUTUAL TPAPolicy FETZERDOB: [facility] Number: [id number] Mateo, [place] [id number] Repository [address]Iep: (330) Date:0538-10-85XQ [phone] () [address]258IZSWKHWNG, [place] [address]WV: CHECK WEBSITE 03/19/2018 Secondary NOT GIVENUNK [place] Insurance:SELF PAY [facility] Number: Effective Repository Date:2018-03-19 03/19/2018 GINETTE R Primary Insurance:MED GINETTE R [place] [id number] MUTUAL TPAPolicy FETZERDOB: [facility] Number: [id number] Mateo, [place] [id number] Repository [address]Ugu: (330) Date:3827-50-20VK [phone] (HP) [address]DFFKUSFBM, [place] [address]SI: CHECK WEBSITE 03/19/2018 Secondary NOT GIVENUNK [place] Insurance:SELF PAY [facility] Number: Effective Repository Date:2018-02-16 02/10/2018 GINETTE R Primary Insurance:MED GINETTE R [place] [id number] MUTUAL TPAPolicy FETZERDOB: [facility] Number: [id number] Mateo, [place] [id number] Repository [address]Bdb: (330) Date:0864-26-84EX [phone] (HP) [address]VMQQKYNIT, [place] [address]AH: CHECK WEBSITE 02/10/2018 Secondary NOT GIVENUNK [place] Insurance:SELF PAY [facility] Number: Effective Repository Date:2018-02-10 02/02/2018 GINETTE R Primary Insurance:MED GINETTE R [place] [id number] MUTUAL TPAPolicy FETZERDOB: [facility] Number: [id number] Mateo, [place] [id number] Repository [address]Qfu: (330) Date:3455-08-70AC [phone] (HP) [address]XWHTBDXSW, [place] [address]TT: CHECK WEBSITE 02/02/2018 Secondary NOT GIVENUNK [place] Insurance:SELF PAY [facility] Number: Effective Repository Date:2017-12-30 01/28/2018 GINETTE R Primary Insurance:MED GINETTE Tompkins [place] [id number] MUTUAL TPAPolicy FETZERDOB: [facility] Number: [id number] Mateo, [place] [id number] Repository [address]Ubd: (330) Date:1169-83-49FR [phone] () 19212PFXWOOUYG, [place] [address]GL: CHECK WEBSITE 01/28/2018 Secondary NOT GIVENUNK [place] Insurance:SELF PAY [facility] Number: Effective Repository Date:2018-01-28 01/22/2018 GINTETE R Primary Insurance:MED GINETTE Tompkins [place] [id number] MUTUAL TPAPolicy FETZERDOB: [facility] Number: [id number] Mateo, [place] [id number] Repository [address]Bud: (330) Date:0268-93-05CX [phone] () [address]KYMLYKVUY, [place] [address]WC: CHECK WEBSITE 01/22/2018 Secondary NOT GIVENUNK [place] Insurance:SELF PAY [facility] Number: Effective Repository Date:2018-01-22 11/20/2017 GINETTE Leda Primary Insurance:MMO GINETTE Tompkins [facility] FETZERDOB: NETWORK ACCESSPolicy FETZERDOB: [place] Number: [id number] [facility] [id number] [address] [place] [address] Date:0586-90-18Lwpz [place], [place] Repository [address]Ijv: (330) Name:[facility] CARE [id number]: (HP) [phone] (HP) 11/20/2017 GINETTE Leda Primary Insurance:MMO GINETTE Leda [facility] FETZERDOB: NETWORK ACCESSPolicy FETZERDOB: [place] Number: [id number] [facility] [id number] [address] [place], [place] Date:4245-56-33Lsub [place], [place] Repository [address]Pys: (330) Name:[facility] CARE [id number]: (HP) [phone] (HP) 09/24/2017 GINETTE Tompkins Primary Insurance:MED GINETTE R [place] [id number] MUTUAL TPAPolicy FETZERDOB: [facility] Number: [id number] Mateo, [place] [id number] Repository [address]Xgu: (330) Date:4026-23-25QX [phone] (HP) 398[address]QVNXFXZLA, [place] [address]RQ: CHECK WEBSITE 09/24/2017 Secondary NOT GIVENUNK [place] Insurance:SELF PAY [facility] Number: Effective Repository Date:2017-09-17 09/17/2017 Ginette Tompkins Primary Insurance:MED Ginette R [place] [id number] MUTUAL TPAPolicy FetzerDOB: [facility] Number: [id number], [place] [id number] Repository [address]Gal: (330) Date:6736-42-90OY [phone] () [address]ZXIKRHMPK, [place] [address]BR: CHECK WEBSITE 09/17/2017 Secondary NOT GIVENUNK [place] Insurance:SELF PAY [facility] Number: Effective Repository Date:2017-09-17 09/04/2017 Ginette Tompkins Primary Insurance:MED Ginette Leda [place] [id number] MUTUAL TPAPolicy FetzerDOB: [facility] Number: [id number], [place] [id number] Repository [address]Kme: (330) Date:6257-64-50HM [phone] (HP) [address]ARZCEJLLQ, [place] [address]IB: CHECK WEBSITE 09/04/2017 Secondary NOT GIVENUNK [place] Insurance:SELF PAY [facility] Number: Effective Repository Date:2017-09-03
== END 2018-03-19 13:53 | disposition home or self-care (01) ==
LOC: SDC 08:58 → AC 08:59
PROVIDERS: Anesthesiology; Family Provider Family Medicine Geriatric Medicine; PCP Family Medicine Geriatric Medicine; Referring Provider Obstetrics & Gynecology; Visit Provider Obstetrics & Gynecology
PROC: 0UB98ZZ Excision of Uterus, Via Natural or Artificial Opening Endoscopic (ICD-10-PCS; CPT 58558; principal; 2018-03-19 11:00)
DX: N84.1 Polyp of cervix uteri (principal); N84.0 Polyp of corpus uteri; D25.0 Submucous leiomyoma of uterus; E06.9 Thyroiditis, unspecified; I10 Essential (primary) hypertension; K21.9 Gastro-esophageal reflux disease without esophagitis; Z85.850 Personal history of malignant neoplasm of thyroid; Z79.899 Other long term (current) drug therapy
CPT/HCPCS: 58558; 36415; 80048; 81025; 82040; 83001; 83735; 84484; 85027; 85610; 85730; 86850; 86900; 88305; 93005; J7120; J2405

== ENCOUNTER → 2018-04-18 06:59 | Outpatient (CLI) | payer OTHER, SELFPAY ==
[2018-04-14 15:45] VITALS: BMI 41.3
[2018-04-18 09:03] LABS: AST(SGOT) 19 U/L (15-37); Alanine Aminotransfer ALT/SGPT 31 U/L (13-56); Albumin, Serum 3.7 g/dL (3.2-5.0); Alkaline Phosphatase 66 U/L (45-117); Bilirubin, Direct 0.11 mg/dL (0.00-0.30); Cholesterol 138 mg/dL (200); Globulin 3.6 g/dL (2.2-4.2); High Density Lipoprotein 52 mg/dL; Protein, Total 7.3 g/dL (6.4-8.2); Triglycerides 93 mg/dL; Very Low Density Lipoprotein 19 mg/dL (5-40)
== END ==
PROVIDERS: Family Provider Family Medicine Geriatric Medicine; PCP Family Medicine Geriatric Medicine; Referring Provider Internal Medicine Cardiovascular Disease; Visit Provider Internal Medicine Cardiovascular Disease
DX: Z13.220 Encounter for screening for lipoid disorders (principal)
CPT/HCPCS: 36415; 80061; 80076

== ENCOUNTER → 2018-04-22 14:43 | Outpatient (CLI) | payer OTHER, SELFPAY ==
[2018-04-14 15:45] VITALS: BMI 41.3
--- NOTE | 2018-04-22 14:45 | ECHOD_ITS ---
Reason For Study: Arrhythmia Procedure This was a 2D Doppler, Color Flow transthoracic echocardiogram. Exam performed in department. Left Ventricle Normal size and thickness. The estimated ejection fraction is 65 %. Stage 1 diastolic dysfunction. No regional wall motion abnormalities noted. Right Ventricle Normal size and thickness. Normal systolic function. Atria Normal left atrium. Normal right atrium. Normal atrial septum. Mitral Valve The mitral valve is structurally normal. No prolapse or stenosis seen. Tricuspid Valve Normal tricuspid valve. Trivial tricuspid valve insufficiency. Right ventricular systolic pressure estimated to be 29 mmHg. Aortic Valve Normal aortic valve. Trisinus/trileaflet aortic valve. Pulmonic Valve Normal pulmonic valve. Great Vessels Normal aortic root. Normal arch. Normal inferior vena cava. Inferior vena cava collapse with sniff. Pericardium/Pleural No pericardial effusion. MMode/2D Measurements & Calculations LVIDd: 4.2 cm IVSd: 1.0 cm Ao root diam: 3.1 cm LVIDs: 2.4 cm LVPWd: 1.1 cm RVDd: 3.0 cm FS: 43.9 % LAV(MOD-bp): 30.8 ml LVAd ap4: 23.9 cm2 SV(MOD-sp4): 35.7 ml LAV(MOD-bp) Indexed: 14.3 ml/m2 EDV(MOD-sp4): 61.1 ml LAV(MOD-sp2): 27.4 ml EDV(sp4-el): 62.5 ml LAV(MOD-sp4): 37.4 ml LVAs ap4: 14.0 cm2 ESV(MOD-sp4): 25.4 ml ESV(sp4-el): 25.2 ml EF(MOD-sp4): 58.4 % EF(sp4-el): 59.7 % SV(sp4-el): 37.3 ml LA A4 area: 15.8 cm2 LA dimension(2D): 4.1 cm RA A4 area: 12.4 cm2 Doppler Measurements & Calculations MV E max ravi: 80.0 cm/sec Lat Peak E' Ravi: 6.0 cm/sec Med Peak E' Ravi: 7.7 cm/sec MV A max ravi: 89.8 cm/sec E/E' lat: 13.3 E/E' med: 10.3 MV E/A: 0.89 Ao V2 max: 160.3 cm/sec LV V1 max: 121.5 cm/sec PA V2 max: 90.6 cm/sec Ao max P.3 mmHg LV V1 max P.9 mmHg Ao V2 mean: 110.4 cm/sec Ao mean P.4 mmHg Ao V2 VTI: 27.2 cm TR max ravi: 253.5 cm/sec TR max P.7 mmHg Interpretation Summary The estimated ejection fraction is 65 %. Stage 1 diastolic dysfunction. Right ventricular systolic pressure estimated to be 29 mmHg. There is no comparison study available. Ordering Physician: Del Gunn Referring Physician: Win Matos Chi Performed By: Noemi Mendez RDCS, RVT
--- OUTSIDE RECORDS SUMMARY | 2018-06-27 13:45 | XMS RPT_ITS ---
:1960 Author Organization OHIP Support Name Relationship Address Phone LORNA MACKNEZIE Unavailable [address] + [place] [address] UNITI Unavailable [address] + [place] [address] AVRILLORNA LITTLE Unavailable [address] + [place] [address] UNITI Unavailable [address] + [place] [address] AVRIL, LORNA Unavailable [address] + [place] [address] UNITI Unavailable [address] + [place] [address] AVRIL, LORNA Unavailable [address] + [place] [address] UNITI Unavailable [address] + [place] [address] AVRIL, LORNA Unavailable [address] + [place] [address] UNITI Unavailable [address] + [place] [address] AVRIL, LORNA Unavailable [address] + [place] [address] UNITI Unavailable [address] + [place] [address] AVRIL, LORNA Unavailable [address] + [place] [address] UNITI Unavailable [address] + [place] [address] AVRIL, LORNA Unavailable [address] + [place] [address] UNITI Unavailable [address] + [place] [address] AVRIL, LORNA Unavailable [address] + [place] [address] UNITI Unavailable [address] + [place] [address] AVRIL, LORNA Unavailable [address] + [place] [address] UNITI Unavailable [address] + [place] [address] AVRIL, LORNA Unavailable [address] + [place] [address] UNITI Unavailable [address] + [place] [address] AVRIL, LORNA Unavailable [address] + [place] [address] UNITI Unavailable [address] + [place] [address] AVRIL, LORNA Unavailable [address] + [place] [address] AVRIL GINETTE Unavailable Unavailable Unavailable AVRIL, LORNA Unavailable [address] + [place] [address] AVRILSANJAYEN Unavailable Unavailable Unavailable AVRIL, LORNA Unavailable [address] + [place] [address] UNITI Unavailable [address] + [place] [address] AVRIL, LORNA Unavailable [address] + [place] [address] UNITI Unavailable [address] + [place] [address] AVRIL, LORNA Unavailable [address] + [place] [address] UNITI Unavailable [address] + [place] [address] Care Team Providers Name Role Phone HOWARD SIN Attending Unavailable JEFFREY, HALI-CHI Referring Unavailable JEFFREY, HALI-CHI Primary Care Unavailable HOWARD SIN Attending Unavailable JEFFREY, HALI-CHI Referring Unavailable JEFFREY, HALI-CHI Primary Care Unavailable Papi Thomas Attending Unavailable Reynoso-Cash, Summer Referring Unavailable Del Gunn Attending Unavailable Jeffrey, Hali Chi Referring Unavailable GunnDel Attending Unavailable Gunn, Del Referring Unavailable Jeffrey, Hali Chi Primary Care Unavailable Del Gunn Attending Unavailable Gunn, Del Referring Unavailable Jeffrey, Hali Chi Primary Care Unavailable GunnDel Attending Unavailable Gunn, Del Referring Unavailable Jeffrey, Hali Chi Primary Care Unavailable GunnDel Attending Unavailable Gunn, Del Referring Unavailable Jeffrey, Hali Chi Primary Care Unavailable Del Gunn Consulting Unavailable Del Gunn Attending Unavailable Gunn, Del Referring Unavailable Jeffrey, Hali Chi Primary Care Unavailable GunnDel Consulting Unavailable Jeffrey, Hali Chi Attending Unavailable [...] Unavailable Jeffrey, Hali Chi Primary Care Unavailable Reynoso-Cash Summer Attending Unavailable Reynoso-Cash, Summer Referring Unavailable Jeffrey, Hali Chi Primary Care Unavailable Reynoso-Cash, Summer Attending Unavailable Reynoso-Cash, Summer Referring Unavailable Jeffrey, Hali Chi Primary Care Unavailable PROBLEMS PROBLEMS DATE TYPE CONDITION / CODE ATTENDING STATUS SOURCE 04/28/2018 Unknown Z01.810 - Encounter Del Gunn for preprocedural [facility] examination / Repository Z01.810(ICD-10) 04/22/2018 [...] Somnolence / Del Gunn Active [place] R40.0(ICD-10) [facility] Repository 03/30/2018 Unknown I10 - Essential Martha, [place] Active [place] (primary) hypertension Community / I10(ICD-10) Hospital Repository 03/30/2018 Unknown I48.91 - Unspecified Martha, Papi Active [place] atrial fibrillation / Community I48.91(ICD-10) Hospital Repository 02/10/2018 Unknown Z12.4 - Encounter for Reynoso-Cash, Active [facility] screening for [facility] malignant neoplasm of Hospital cervix / Z12.4(ICD-10) Repository 02/10/2018 Unknown N39.0 - Urinary tract Reynoso-Cash, Active [facility] infection, site not [place] Community specified / Hospital N39.0(ICD-10) Repository 01/22/2018 Unknown R05 - Cough / Jeffrey, Hali Chi Active [place] R05(ICD-10) [facility] Repository 09/04/2017 Unknown R60.0 - Localized Jeffrey, Hali Chi Active [place] edema / R60.0(ICD-10) [facility] Repository PROCEDURES PROCEDURES No Procedure Records FoundRESULTS RESULTS STRESS TEST ECHO W/ Observed: 04/28/2018 Status: F Source: [place] CONTRAST 8:54 AM [facility] REPOSITORY [facility] Cardiovascular Services [address] [place] [address] Stress Test Echo W/Contrast MR#: [id number] Acct: [id number] Name: GINETTE MACKENZIE Rep #: [id number] : 1960 58 From: Del Gunn MD [...] Dictated: 04/23/18 1255 Date Transcribed: 04/28/18 0853 Headhunter: Signed ECHOCARDIOGRAM COMPLETE Observed: 04/22/2018 Status: F Source: [place] 4:11 PM [facility] REPOSITORY [facility] Cardiovascular Services [address] [place] [address] Echo Complete 04/22/18 1456 MR#: [id number] Acct: [id number] Name: GINETTE MACKENZIE Rep #: [id number] : 1960 58 From: Del Gunn MD [...] Dictated: 04/22/18 1456 Date Transcribed: 04/22/18 1611 Headhunter: Signed LIVER PROFILE Collected: 04/18/2018 Status: F Source: [place] 7:04 AM [facility] REPOSITORY TYPE CODE TESTS RESULT OUT OF [...] 0.11 Performed By: #### L500.3400, L500.4100 #### [facility] [address] [place], [address] LIPID PROFILE Collected: 04/18/2018 Status: F Source: [place] 7:04 AM [facility] REPOSITORY TYPE CODE TESTS RESULT OUT OF [...] 19 Performed By: #### L500.3400, L500.4100 #### [facility] [address] [place], [address] CARDIOLOGY VISIT Observed: 2018 Status: F Source: [place] REPORT 4:17 PM [facility] REPOSITORY [facility] [address] [place] [address] OFFICE VISIT Date of Service: 04/14/18 MR#: [id number] Acct: [id number] Name: GINETTE MACKENZIE Rep #: [id number] : 1960 Provider: Del Gunn MD Age/Sex: [...] ABN EKG DURING D AND C (SELF) Mask Design Engineer Required: No Is patient in pain?: Yes [...] DAILY #30 cap 04/14/18 [Rx Confirmed 04/14/18] [facility] History Preop cardiovascular exam (Acute) Peripheral neuropathy (Chronic) Bigeminy (Acute) Premature ventricular contractions (Acute) Abnormal EKG (Acute) Postmenopausal bleeding (Acute) Surgical History History of cervical polypectomy (Chronic) History of removal of neck cyst (Chronic) History of thyroid surgery (Chronic) Mumford teeth extracted (Chronic) Family History Unknown No [...] EKG W/ Observed: 03/20/2018 Status: F Source: [place] RHYTHM STRIP 11:22 AM [facility] REPOSITORY [facility] Cardiovascular Services [address] [place] [address] 12 Lead EKG with Rhythm Strip 03/19/18 1157 MR#: [id number] Acct: [id number] Name: GINETTE MACKENZIE Rep #: [id number] : 1960 57 From: Papi Thomas MD Attending Dr: [place]ina Ronquillo MD Status: [facility] Ordering Dr: Tony Hernandez MD Date: 03/19/18 [place] [facility] Sex: F C Admitted: Test Reason : [...] available Confirmed by PAPI THOMAS MD ([id number]), design editor MAGDALENA PEREZ ([id number]) on 03/20/2018 11:21:36 AM Referred By: [place]ina Ronquillo Confirmed By:PAPI THOMAS MD 03/20/18 1121 Date Papi Thomas MD CC: Tony Hernandez MD; [place]ina Ronquillo MD; aHli Mei MD Signed DISCHARGE INSTRUCTION Observed: 03/19/2018 Status: F Source: [place] 12:17 PM [facility] REPOSITORY [facility] Medical Records Department [address] [place] [address] Instructions for Home/Discharge Instructions 03/19/18 1215 MR#: [id number] Acct: [id number] Name: GINETTE MACKENZIE Rep #: [id number] : 1960 57 From: [place] Castrejon MD [...] 03/19/2018 Status: F Source: [place] 12:00 PM [facility] REPOSITORY TYPE CODE TESTS RESULT OUT OF RANGE REFERENCE UNITS LAB L501.1800 3.2-5.0 g/dL Normal ALB 3.8 Performed By: #### L501.1800 #### [facility] [address] [place], [address] BASIC METABOLIC Collected: 03/19/2018 Status: F Source: [place] PROFILE (BMP) 12:00 PM [facility] REPOSITORY Order Comment: 'TROP' Serial specimen #1, [...] Performed By: #### L500.2500, L501.4010, L501.5200 #### [facility] [address] [facility] [place], [address] TROPONIN-I Collected: 03/19/2018 Status: F Source: [place] 12:00 PM [facility] REPOSITORY Order Comment: 'TROP' Serial specimen #1, #2 or #3: 1 TYPE CODE TESTS RESULT OUT OF RANGE REFERENCE UNITS LAB L501.4010 <0.045 ng/mL Normal < 0.015 TROPONIN-I Result Comment: TROPONIN-I EXPECTED VALUES <0.045 Negative 0.045 - 0.590 Consistent with Cardiac Damage > OR = 0.600 Critical Value Not every elevated troponin is indicative of CO. These values should be used with clinical judgement in examining the patient's clinical picture for diagnosis. To establish a diagnosis of CO versus myocardial injury, there must be a demonstrated rise and/or fall in the troponin values, in addition to ischemic symptoms, EKG changes, new regional wall motion abnormality, and/or angiographical evidence. PLEASE NOTE: REFERENCE RANGES EDITED 17 Performed By: #### L500.2500, L501.4010, L501.5200 #### [facility] [address] [place], [address] MAGNESIUM Collected: 03/19/2018 Status: F Source: [place] 12:00 PM [facility] REPOSITORY Order Comment: 'TROP' Serial specimen #1, #2 or #3: 1 TYPE CODE TESTS RESULT OUT OF RANGE REFERENCE UNITS LAB L501.5200 1.6-2.6 mg/dL Normal MG 2.2 Performed By: #### L500.2500, L501.4010, L501.5200 #### [facility] [address] [place], [address] OPERATIVE REPORT Observed: 03/19/2018 Status: F Source: [place] 11:40 AM [facility] REPOSITORY [facility] Medical Records Department [address] [place] [address] Operative Report 03/19/18 1131 MR#: [id number] Acct: [id number] Name: GINETTE MACKENZIE Rep #: [id number] : 1960 57 From: [place]ina Castrejon MD PCP: Hali Mei MD, Chi Status: REG SDC Y Location: [place] [address] Problem List (1) Postmenopausal bleeding Status: Acute [...] Signed ,URINE Collected: 03/19/2018 Status: F Source: [place] 9:06 AM [facility] REPOSITORY Order Comment: Reason for Laboratory Test PRE OP TYPE CODE TESTS RESULT OUT OF REFERENCE UNITS RANGE LAB L400.8000 Negative Normal HCGUQUAL Negative Result Comment: Very dilute urine specimens, as indicated by a low specific gravity, may not contain strategic partnership representative levels of hCG. If is still suspected, a first morning urine specimen should be collected 48 hours later and tested. Performed By: #### L400.7600 #### [facility] [address] [place], [address] HISTORY AND PHYSICAL Observed: 03/19/2018 Status: F Source: [place] EXAM 7:18 AM [facility] REPOSITORY [facility] Medical Records Department [address] [place] [address] History and Physical 03/19/18 0715 MR#: [id number] Acct: [id number] Name: GINETTE MACKENZIE Rep #: [id number] : 1960 57 From: [place] Castrejon MD PCP: Hali Mei MD, Chi Status: PRE SDC Y Location: [facility] - Problem List (1) Postmenopausal bleeding Status: Acute History and Physical Date of Admission: 03/19/18 Date: 03/12/2018 Name: GINETTE MACKENZIE Age: 57 Date of : 1960 HISTORY OF PRESENT ILLNESS: On 03/12/2018, Ginette Mackenzei, a 57 year old female 2 0 [...] removed 3. polyp removed from cervix 4. 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 / SJ:jana 03/19/18 TC:5 CPT: 01666 HEADER OPERATION: Hysteroscopy, dilation and curettage, polypectomy, Symphion PRE-OP DIAGNOSIS: Polyp of cervix uteri and postmenopausal bleeding TISSUE SUBMITTED: Endometrial curettings MICROSCOPIC DESCRIPTION Slides are reviewed. MICROSCOPIC DIAGNOSIS Endometrium, curettings: Polypoid fragments of disordered endometrium to simple hyperplasia without atypia. Focal dystrophic microcalcifications. AM:jana 03/20/18 Signed Jim Raines, DO 03/20/18 <signature on file> Performed By: #### PEMB #### [facility] [address] [facility] [place], [place], [address] CBC-COMPLETE BLOOD CNT Collected: 03/12/2018 Status: F Source: [place] NO DIFF 5:17 PM [facility] REPOSITORY TYPE CODE TESTS RESULT OUT OF [...] MPV 10.2 Performed By: #### L100.0500 #### [facility] [address] [place], [place], [address] PROTHROMBIN TIME W/INR Collected: 03/12/2018 Status: F Source: [place] 5:17 PM [facility] REPOSITORY TYPE CODE TESTS RESULT OUT OF RANGE REFERENCE UNITS LAB L300.4150 11.7-14.9 SECONDS Normal PROTIME 12.8 LAB L300.4200 Normal INR 1.0 Performed By: #### L300.3900, L300.4310 #### [facility] [address] [place], [address] PARTIAL THROMBOPLAST Collected: 03/12/2018 Status: F Source: [place] TIME 5:17 PM [facility] REPOSITORY TYPE CODE TESTS RESULT OUT OF RANGE REFERENCE UNITS LAB L300.4310 24.1-36.2 Seconds Normal PTT 27.6 Performed By: #### L300.3900, L300.4310 #### [facility] [address] [place], [address] BASIC METABOLIC Collected: 03/12/2018 Status: F Source: [place] PROFILE (BMP) 5:17 PM [facility] REPOSITORY TYPE CODE TESTS RESULT OUT OF [...] 9 Performed By: #### L500.2500, L3100.5125 #### [facility] [address] [place], [address] FOLLICLE STIMULATING Collected: 03/12/2018 Status: F Source: [place] HORMONE 5:17 PM [facility] REPOSITORY TYPE CODE TESTS RESULT OUT OF [...] 2011 Performed By: #### L500.2500, L3100.5125 #### [facility] [address] [facility] [place], [address] TYPE AND SCREEN Collected: 03/12/2018 Status: F Source: [place] 5:17 PM [facility] REPOSITORY Order Comment: Surgery Date: 03/19/18 Hx [...] NEGATIVE Screen Performed By: #### B101.7475 #### [facility] [address] [place], [address] Observed: 02/10/2018 Status: F Source: [place] CULTURE, URINE 4:30 PM [facility] REPOSITORY Urine Culture Below infection level. ORGANISM 1: Mixed Gram Pos AND Gram Neg Org [place] Count 1000-10,000 Performed By: #### M100.0650 #### [facility] [address] [place], [address] CERVICAL Observed: 02/10/2018 Status: F Source: [place] 4:30 PM [facility] REPOSITORY Patient: GINETTE MACKENZIE : 1960 (57/F) Acct Num: [id number] Phys: Yg RAM,Summer Unit Num: [id number] Loc: [facility] Specimen: [id number] Received: 02/10/18 - 1711 Spec Type: CERV [...] one cassette. / LEVI:jana 02/11/18 TC:5 CPT: 38114 HEADER OPERATION: Polypectomy PRE-OP DIAGNOSIS: Cervical polyp TISSUE SUBMITTED: Cervical polyp MICROSCOPIC DESCRIPTION Slides are reviewed. MICROSCOPIC DIAGNOSIS Cervical polyp, polypectomy: Fragments of inflamed benign endocervical polyp with acute and chronic inflammation and squamous metaplasia. LEVI:jana 02/12/18 Signed Galindo Sommers 02/12/18 <signature on file> Performed By: #### PCER #### [facility] [place], [address] PAP IG HPV APTIMA Collected: 02/10/2018 Status: F Source: [place] ,45 4:30 PM [facility] REPOSITORY Order Comment: CYTOLOGY INFORMATION: - CLINICAL INFORMATION: POSTMENOPAUSAL BLEEDING - DATE LMP/MENOPAUSE: - COLLECTION VIAL: Thin Prep Vial - REGULATORY CONSULTANT SOURCE: CERVICAL/ENDOCERVICAL - COLLECTION TECHNIQUE: BRUSH/SPATULA Specimen Comment: [id number] Specimen Comment: Source.............Cervix;Endocervix Specimen Comment: Other..............MINESWEEPING OFFICER Bleeding Specimen Comment: No. of containers..01 ThinPrep Vial TYPE CODE TESTS RESULT OUT OF RANGE REFERENCE UNITS LAB L7400.0800 . Normal DIAGN Comment Result Comment: NEGATIVE FOR INTRAEPITHELIAL LESION AND MALIGNANCY. LAB L7400.0900 . Normal ADEQ Comment Result Comment: Satisfactory for evaluation. Endocervical and/or squamous metaplastic cells (endocervical component) are present. LAB L7400.1400 . Normal PERFORM Comment Result Comment: Dayana Augustin, Supply Chain Intern (ASCP) LAB L7400.2575 . Normal TEST METHOD [...] (16/18/31/33/35/39/45/ 51/52/56/58/59/66/68) without differentiation. Performed at: - [facility] [id number] Meeting Specialist: Graciela Knight MD, Phone: [phone] Performed at: = - [facility] [id number] Meeting Specialist: Graciela Knight MD, Phone: [phone] Performed By: #### L7400.0280 #### [facility] (refer to report for specific site) refer to report for address and phone number SCREENING MAMM (CAD), Observed: 02/02/2018 Status: F Source: [place] BILAT 3:46 PM [facility] REPOSITORY [facility] Imaging Services [address] [place] [address] SCREENING MAMM (CAD), BILAT MR#: [id number] Acct: [id number] Name: GINETTE MACKENZIE Rep #: [id number] : 1960 F 57 From: Charli Ramirez MD PCP: Jeffrey RAM,Hali Chi Status: REG CLI Study: SCREENING MAMM (CAD), BILAT Date of Exam: 02/02/18 Exam# [id number] Ordering Dr: Hali Mei MD MAMMOGRAPHY - [...] delay biopsy of a clinically suspicious abnormality. [id number] Electronically Signed: Charli Ramirez MD at 8:37 EDT Tel [phone], Service support , CC: Hali Mei MD Headhunter: Signed ERYTHROCYTE SED RATE Collected: 01/28/2018 Status: F Source: [place] 3:57 PM [facility] REPOSITORY TYPE CODE TESTS RESULT OUT OF RANGE REFERENCE UNITS LAB L102.0000 0-30 mm/hr Normal SED RATE 8 Performed By: #### L101.9900 #### [facility] [address] [place], [address] VITAMIN B12 Collected: 01/28/2018 Status: F Source: [place] 3:57 PM [facility] REPOSITORY TYPE CODE TESTS RESULT OUT OF RANGE REFERENCE UNITS LAB L503.0105 211-911 pg/mL Normal Vitamin B12 343 Performed By: #### L503.0105 #### [facility] [address] [place], [address] CHEST PA AND LATERAL Observed: 01/22/2018 Status: F Source: [place] 3:53 PM [facility] REPOSITORY [facility] Imaging Services [address] [address] Chest PA and Lateral MR#: [id number] Acct: [id number] Name: GINETTE MACKENZIE Rep #: [id number] : 1960 F 57 From: Ethan Lauren MD PCP: Hali Mei MD, Chi Status: REG CLI Study: Chest PA and Lateral Date of Exam: 01/22/18 Exam# [id number] Ordering Dr: Hali Mei MD STUDY: X-RAY [...] Service support , CC: Hali Mei MD Headhunter: Signed PROTHROMBIN TIME W/INR Collected: 01/22/2018 Status: F Source: [place] 3:52 PM [facility] REPOSITORY TYPE CODE TESTS RESULT OUT OF RANGE REFERENCE UNITS LAB L300.4150 11.7-14.9 SECONDS Normal PROTIME 12.5 LAB L300.4200 Normal INR 0.9 Performed By: #### L300.3900, L300.4310 #### [facility] [address] [place], [place], [address] PARTIAL THROMBOPLAST Collected: 01/22/2018 Status: F Source: [place] TIME 3:52 PM [facility] REPOSITORY TYPE CODE TESTS RESULT OUT OF RANGE REFERENCE UNITS LAB L300.4310 24.1-36.2 Seconds Normal PTT 28.1 Performed By: #### L300.3900, L300.4310 #### [facility] [address] [facility] [place], [place], [address] CBC W/DIFF, AUTOMATED Collected: 01/22/2018 Status: F Source: [place] 3:52 PM [facility] REPOSITORY TYPE CODE TESTS RESULT OUT OF [...] Lymph 1.14 Performed By: #### L100.0100 #### [facility] [address] [place], [place], [address] ALLERGEN, MINI-RAST Collected: 01/22/2018 Status: F Source: [place] 3:52 PM [facility] REPOSITORY TYPE CODE TESTS RESULT OUT OF [...] Urine Normal <0.10 Result Comment: Performed at: [facility] [id number] Meeting Specialist: Justin Castellano MD, Phone: [phone] LAB L5500.2996 . Normal RAST COMMENT Comment Result Comment: [...] FREE T4 Collected: 11/20/2017 Status: F Source: [facility] 8:56 AM [facility] REPOSITORY TYPE CODE TESTS RESULT OUT OF RANGE REFERENCE UNITS LAB FT4 0.89-1.76 ng/dL Free T4 1.57 Performed By: #### FT4, TSH, THYBAT #### [address] [address] TSH, HIGH SENSITIVITY Collected: 11/20/2017 Status: F Source: [facility] 8:56 AM [facility] REPOSITORY TYPE CODE TESTS RESULT OUT OF REFERENCE UNITS RANGE LAB TSH 0.550-4.780 uIU/mL Low TSH, High Sensitivity 0.415 Performed By: #### FT4, TSH, THYBAT #### [address] [address] THYROGLOBULIN BATTERY Collected: 11/20/2017 Status: F Source: [facility] (THRY & THYRAB) 8:56 AM [facility] REPOSITORY TYPE CODE TESTS RESULT OUT OF REFERENCE UNITS RANGE LAB THYRAB <4.0 IU/mL Thyroglobulin Antibody <0.9 LAB THYRN 1.6-50 ng/mL *THYROGLOBULIN Low 0.1 Performed By: #### FT4, TSH, THYBAT #### [facility] [address] [place], [place] [address] CHEST Observed: 09/24/2017 Status: F Source: [place] 10:41 AM [facility] REPOSITORY [facility] Imaging Services [address] [place] [address] Chest MR#: [id number] Acct: [id number] Name: GINETTE MACKENZIE Rep #: [id number] : 1960 F 57 From: Óscar Lomax MD PCP: Hali Mei MD, Chi Status: REG CLI Study: Chest Date of Exam: 09/24/17 Exam# [id number] Ordering Dr: Hali Mei MD STUDY: SUPERFICIAL [...] Service support , CC: Hali Mei MD Headhunter: Signed CBC W/DIFF, AUTOMATED Collected: 09/17/2017 Status: F Source: [place] 5:09 PM [facility] REPOSITORY TYPE CODE TESTS RESULT OUT OF [...] Lymph 1.94 Performed By: #### L100.0100 #### [facility] [address] [place], [address] COMPREHENSIVE METABOLIC Collected: 09/17/2017 Status: F Source: [facility] 5:09 PM [facility] REPOSITORY TYPE CODE TESTS RESULT OUT OF [...] GAP Performed By: #### L500.4050, L501.9520 #### [facility] [address] [place], [place], [address] THYROID STIM HORMONE Collected: 09/17/2017 Status: F Source: [place] (TSH) 5:09 PM [facility] REPOSITORY TYPE CODE TESTS RESULT OUT OF RANGE REFERENCE UNITS LAB L501.9520 0.358-3.74 uIU/mL Normal TSH 1.85 Performed By: #### L500.4050, L501.9520 #### [facility] Laboratory [address] [place], [place], [address] HEPATITIS C ANTIBODIES Collected: 09/17/2017 Status: F Source: [place] 5:09 PM [facility] REPOSITORY TYPE CODE TESTS RESULT OUT OF RANGE REFERENCE UNITS LAB L3100.0650 0.0-0.9 s/co ratio Normal HEP C AB <0.1 Result Comment: Negative: < 0.8 Indeterminate: 0.8 - 0.9 Positive: > 0.9 The CDC recommends that a positive HCV antibody result be followed up with a HCV Nucleic Acid Amplification test (657698). Performed at: - [facility] [address] [id number] Meeting Specialist: Louis Mariee PhD, Phone: [phone] Performed By: #### L3100.0625 #### [facility] (refer to report for specific site) refer to report for address and phone number VENOUS DUPLEX LOWER Observed: 09/15/2017 Status: F Source: [place] EXTREMITY 7:25 PM [facility] REPOSITORY [facility] Cardiovascular Services [address] [place] [address] Venous Duplex US - [facility] 09/04/17 1432 MR#: [id number] Acct: [id number] Name: GINETTE MACKENZIE Rep #: [id number] : 1960 57 From: Lobo Lew MD [...] MD Date Dictated: 09/04/171431 Date Transcribed: 09/15/171924 Headhunter: Signed LUMBAR SPINE 2 OR 3 Observed: 09/04/2017 Status: F Source: [place] VIEWS 1:48 PM [facility] REPOSITORY [facility] Imaging Services [address] [place] [address] Lumbar Spine 2 or 3 Views MR#: [id number] Acct: [id number] Name: GINETTE MACKENZIE Rep #: [id number] : 1960 F 57 From: Lidia Villarreal PCP: Hali Mei MD, Chi Status: REG CLI Study: Lumbar Spine 2 or 3 Views Date of Exam: 09/04/17 Exam# [id number] Ordering Dr: Hali Mei MD STUDY: X-RAY [...] Service support , CC: Hali Mei MD Headhunter: Signed KNEE 4 OR MORE Observed: 09/04/2017 Status: F Source: [place] VIEWS 1:48 PM [facility] REPOSITORY [facility] Imaging Services [address] [place] [address] [place] [address] Knee 4 or More Views MR#: [id number] Acct: [id number] Name: GINETTE MACKENZIE Rep #: [id number] : 1960 F 57 From: Lidia Villarreal PCP: Jeffrey RAM,Hali Nieves Status: REG CLI Study: Knee 4 or More Views Date of Exam: 09/04/17 Exam# [id number] Ordering Dr: Hali Mei MD STUDY: X-RAY [...] More Views IMPRESSION: Degenerative arthrosis. Electronically Signed: Lidia Villarreal MD at 8:31 EDT Tel , Service support , CC: Hali Mei MD Headhunter: Signed ALLERGIES ALLERGIES DATE TYPE / CODE NAME / CODE REACTION SEVERITY SOURCE 2018 Drug latex/S52690 Itching Unknown [facility] Allergy/4160 8921(RXNORM) Hospital 68105(SNOMED Repository CT) 03/19/2018 Drug meloxicam/F0 Unknown Unknown [facility] Allergy/4160 34391326(RX Hospital 31996(SNOMED ORM) Repository CT) ENCOUNTERS ENCOUNTERS ADMIT/DISCHARGE ACCOUNT NUMBER ADMITTING ENCOUNTER LOCATION SOURCE CLASS 04/23/2018 [id number] Ambulatory BMSBuilding: [place] BMS.CF.[facility] Repository 04/23/2018 [id number] Ambulatory [facility] ding:CVS Repository 04/22/2018 [id number] Ambulatory BMSBuilding: [place] BMS.CF.[facility] Repository 04/22/2018 [id number] Ambulatory [facility] ding:CVS Repository 04/18/2018 [id number] Ambulatory [facility] ding:LAB Repository 04/14/2018/04/14/19 [id number] Ambulatory BMSBuilding: [place] [address] BMS.[facility] Repository 03/19/2018 [id number] Ambulatory BMSBuilding: [place] [facility] Repository 03/19/2018/03/19/20 [id number] Ambulatory [address] ding:SDCRoom Repository : AC12 02/10/2018 [id number] Ambulatory [facility] ding:LABSPEC Repository 02/02/2018 [id number] Ambulatory [facility] ding:OPBI Repository 01/28/2018 [id number] Ambulatory [facility] ding:POLAB3 Repository 01/22/2018 [id number] Ambulatory [facility] ding:RAD Repository 11/20/2017 [id number] Ambulatory Building:K1T [facility] Repository 11/20/2017 [id number] Ambulatory Building:[facility] Repository 09/24/2017 [id number] Ambulatory [facility] ding:US Repository 09/17/2017 [id number] Ambulatory [facility] ding:POLAB3 Repository 09/04/2017 [id number] [facility] ding:CVS Repository PAYERS PAYERS ENCOUNTER GUARANTOR PAYER SUBSCRIBER SOURCE 04/23/2018 GINETTE Tompkins Primary Insurance:MED GINETTE Granados [id number] MUTUAL TPAPolicy FETZERDOB: [facility] Number: [id number] [id number] Repository [address]Acg: (330) Date:4806-40-21SL [phone] () [place]RJOYIMDGA, [place] [address]WC: CHECK WEBSITE 04/23/2018 Secondary NOT GIVENUNK [place] Insurance:SELF PAY [facility] Number: Effective Repository Date:2018-04-23 04/23/2018 GINETTE Tompkins Primary Insurance:MED GINETTE Granados [id number] MUTUAL TPAPolicy FETZERDOB: [facility] Number: [id number], [place] [id number] Repository [address]Pop: (330) Date:9758-47-95FM [phone] () [address]241BMEAYGKOU, [place] [address]SX: CHECK WEBSITE 04/23/2018 Secondary NOT GIVENUNK Roberta Insurance:SELF PAY [facility] Number: Effective Repository Date:2018 04/22/2018 GINETTE Tompkins Primary Insurance:MED GINETTE Granados [id number] MUTUAL TPAPolicy FETZERDOB: [facility] Number: [id number], [place] [id number] Repository [address]Bff: (330) Date:1640-38-67DM [phone] () 35555KVLJRIZZF, [place] [address]IK: CHECK WEBSITE 04/22/2018 Secondary NOT GIVENUNK Roberta Insurance:SELF PAY [facility] Number: Effective Repository Date:2018-04-22 04/22/2018 GINETTE R Primary Insurance:MED GINETTE R [place] [id number] MUTUAL TPAPolicy FETZERDOB: [facility] Number: [id number], [place] [id number] Repository 423[address]Std: (330) Date:8337-35-86SR [phone] () 97234MLAYIJSJA, [place] [address]TO: CHECK WEBSITE 04/22/2018 Secondary NOT GIVENUNK [place] Insurance:SELF PAY [facility] Number: Effective Repository Date:2018 04/18/2018 GINETTE R Primary Insurance:MED GINETTE R [place] [id number] MUTUAL TPAPolicy FETZERDOB: [facility] Number: [id number], [place] [id number] Repository [address]Osy: (330) Date:5380-61-56OP [phone] () 40557QLUKRFZUV, [place] [address]KS: CHECK WEBSITE 04/18/2018 Secondary NOT GIVENUNK [place] Insurance:SELF PAY [facility] Number: Effective Repository Date:2018-04-18 2018 GINETTE R Primary Insurance:MED GINETTE R [place] [id number] MUTUAL TPAPolicy FETZERDOB: [facility] Number: [id number], [place] [id number] Repository [address]Ixm: (330) Date:4982-00-86YP [phone] () 485[address]VWFVPJPLL, [place] [address]GH: CHECK WEBSITE 2018 Secondary NOT GIVENUNK Roberta Insurance:SELF PAY [facility] Number: Effective Repository Date:2018 03/19/2018 GINETTE R Primary Insurance:MED GINETTE R Roberta [id number] MUTUAL TPAPolicy FETZERDOB: [facility] Number: [id number], [place] [id number] Repository [address]Tcr: (330) Date:3675-43-16LZ [phone] () 45[address]WKTHITOAB, [place] [address]PL: CHECK WEBSITE 03/19/2018 Secondary NOT GIVENUNK [place] Insurance:SELF PAY [facility] Number: Effective Repository Date:2018-03-19 03/19/2018 GINETTE R Primary Insurance:MED GINETTE R Roberta [id number] MUTUAL TPAPolicy FETZERDOB: [facility] Number: [id number], [place] [id number] Repository [address]Sam: (330) Date:3073-21-00HU [phone] (HP) [address]153CFDWJQUTQ, [place] [address]NV: CHECK WEBSITE 03/19/2018 Secondary NOT GIVENUNK [place] Insurance:SELF PAY [facility] Number: Effective Repository Date:2018-02-16 02/10/2018 GINETTE R Primary Insurance:MED GINETTE R [place] [id number] MUTUAL TPAPolicy FETZERDOB: [facility] Number: [id number], [place] [id number] Repository [address]Uuu: (330) Date:0387-15-55EN [phone] (HP) 38207SGKICSAET, [place] [address]SB: CHECK WEBSITE 02/10/2018 Secondary NOT GIVENUNK Roberta Insurance:SELF PAY [facility] Number: Effective Repository Date:2018-02-10 02/02/2018 GINETTE R Primary Insurance:MED GINETTE R Roberta [id number] MUTUAL TPAPolicy FETZERDOB: [facility] Number: [id number], [place] [id number] Repository [address]Sov: (330) Date:8692-41-07YP [phone] (HP) [address]AVOFHRLYA, [place] [address]AY: CHECK WEBSITE 02/02/2018 Secondary NOT GIVENUNK Roberta Insurance:SELF PAY [facility] Number: Effective Repository Date:2017-12-30 01/28/2018 GINETTE R Primary Insurance:MED GINETTE Tompkins [place] [id number] MUTUAL TPAPolicy FETZERDOB: [facility] Number: [id number], [place] [id number] Repository [address]Khg: (330) Date:5579-27-67PB [phone] () [address]CAPHQFEKC, [place] [address]LH: CHECK WEBSITE 01/28/2018 Secondary NOT GIVENUNK [place] Insurance:SELF PAY [facility] Number: Effective Repository Date:2018-01-28 01/22/2018 GINETTE R Primary Insurance:MED GINETTE Tompkins [place] [id number] MUTUAL TPAPolicy FETZERDOB: [facility] Number: [id number], [place] [id number] Repository [address]Dzn: (330) Date:4406-07-28UY [phone] () 16708OCNIEFXUW, [place] [address]QP: CHECK WEBSITE 01/22/2018 Secondary NOT GIVENUNK [place] Insurance:SELF PAY [facility] Number: Effective Repository Date:2018-01-22 11/20/2017 GINETTE Leda Primary Insurance:MMO GINETTE Tompkins [facility] FETZERDOB: NETWORK ACCESSPolicy FETZERDOB: Clear Number: [id number] [facility] [id number] [address] [place] [address] Date:6747-75-54Ahdd [place], [place] Repository [address]Ows: (330) Name:MANAGED CARE [id number]: (HP) [phone] (HP) 11/20/2017 GINETTE Leda Primary Insurance:MMO GINETTE Leda [facility] FETZERDOB: NETWORK ACCESSPolicy FETZERDOB: Clear Number: [id number] [facility] [id number] [address] [place], [place] Date:9145-81-39Vbds [place], [place] Repository [address]Eoa: (330) Name:[facility] CARE [id number]: (HP) [phone] (HP) 09/24/2017 GIENTTE Tompkins Primary Insurance:MED GINETTE R Roberta [id number] MUTUAL TPAPolicy FETZERDOB: [facility] Number: [id number], [place] [id number] Repository [address]Uto: (330) Date:4062-84-29TO [phone] (HP) 42[address]BITCKSUTQ, [place] [address]QR: CHECK WEBSITE 09/24/2017 Secondary NOT GIVENUNK Roberta Insurance:SELF PAY [facility] Number: Effective Repository Date:2017-09-17 09/17/2017 Ginette Tompkins Primary Insurance:MED Ginette R [place] [id number] MUTUAL TPAPolicy FetzerDOB: [facility] Number: [id number], [place] [id number] Repository [address]Ahz: (330) Date:1017-10-71BJ [phone] () [address]AFTFYXJBL, [place] [address]IC: CHECK WEBSITE 09/17/2017 Secondary NOT GIVENUNK [place] Insurance:SELF PAY [facility] Number: Effective Repository Date:2017-09-17 09/04/2017 Ginette Tompkins Primary Insurance:MED Ginette Leda Roberta [id number] MUTUAL TPAPolicy FetzerDOB: [facility] Number: [id number], [place] [id number] Repository [address]Rxf: (330) Date:8093-50-37VE [phone] (HP) [address]GQOGANRBR, [place] [address]RE: CHECK WEBSITE 09/04/2017 Secondary NOT GIVENUNK [place] Insurance:SELF PAY [facility] Number: Effective Repository Date:2017-09-03
== END ==
PROVIDERS: Family Provider Family Medicine Geriatric Medicine; PCP Family Medicine Geriatric Medicine; Referring Provider Internal Medicine Cardiovascular Disease; Visit Provider Internal Medicine Cardiovascular Disease
DX: Z01.810 Encounter for preprocedural cardiovascular examination (principal); I49.3 Ventricular premature depolarization; I49.9 Cardiac arrhythmia, unspecified; R94.31 Abnormal electrocardiogram [ECG] [EKG]
CPT/HCPCS: 93306

== ENCOUNTER → 2018-04-23 12:04 | Outpatient (CLI) | payer OTHER, SELFPAY ==
[2018-04-14 15:45] VITALS: BMI 41.3
--- NOTE | 2018-04-23 12:06 | STEWCON_ITS ---
Reason For Study: ARRHYTHMIA Stress Results Protocol: Casper Protocol Maximum Predicted HR: 162 bpm Target HR: 138 bpm % Maximum Predicted HR: 106 % DurationHeart Rate Stage (mm:ss) (bpm) BP Comment BASELINE 90 126/722.5 CC DEFINITY UNDILUTED GIVEN STAGE 1 3:00 134 140/70 STAGE 2 3:00 171 152/801.5CC DEFINITY RECOVERY 101 122/84 Stress Duration: 6:00 mm:ss Maximum Stress HR: 171 bpm Baseline Echocardiogram Findings The estimated ejection fraction is 65 %. Stress Echo Wall motion Data Resting WM Intermediate WM Stress WM Resting Wall Motion Wall Motion Stress No regional wall motion No regional wall motion abnormalities noted. abnormalities noted. EKG Data The baseline ECG displays normal sinus rhythm. The patient exercised according to the regular Casper protocol for a total duration of 6:00. The maximum heart rate attained was 173 beats per minute. This was 106% of maximum predicted heart rate. The patient exercised into stage 3 of the Casper protocol. During stress, there were no ST or T wave changes noted to suggest ischemia. No clinical angina was noted. Interpretation Summary The estimated ejection fraction is 65 %. Normal, adequate, treadmill echocardiogram. Negative for ischemia by EKG and echocardiographic criteria. No anginal symptoms noted. Rare PVCs noted. Appropriate blood pressure response to exercise. Average exercise capacity for age. Test terminated due to the attainment target heart rate and dyspnea. Final LVEF is 75%. Decreased sensitivity due to poor echo windows requiring Definity agent. No complications. Ordering Physician: Del Gunn Referring Physician: Del Gunn Performed By: Arnoldo Miner RCS
--- OUTSIDE RECORDS SUMMARY | 2018-06-28 04:06 | XMS RPT_ITS ---
:1960 Author Organization OHIP Support Name Relationship Address Phone LORNA MACKENZIE Unavailable [address] + [place] [address] UNITI Unavailable [address] + [place] [address] AVRILLORNA LITTLE Unavailable [address] + [place] [address] UNITI Unavailable [address] + [place] [address] AVRIL, LORNA Unavailable [address] + [place] [address] UNITI Unavailable [address] + [place] [address] AVRIL, LORNA Unavailable [address] + [place] [address] UNITI Unavailable [address] + [place] [address] AVRIL, LORNA Unavailable [address] + [place] [address] UNITI Unavailable [address] + [place] [address] AVRIL, LORNA Unavailable [address] + [place] [address] UNITI Unavailable [address] + [place] [address] AVRIL, LORNA Unavailable [address] + [place] [address] UNITI Unavailable [address] + [place] [address] AVRIL, LORNA Unavailable [address] + [place] [address] UNITI Unavailable [address] + [place] [address] AVRIL, LORNA Unavailable [address] + [place] [address] UNITI Unavailable [address] + [place] [address] AVRIL, LORNA Unavailable [address] + [place] [address] UNITI Unavailable [address] + [place] [address] AVRIL, LORNA Unavailable [address] + [place] [address] UNITI Unavailable [address] + [place] [address] AVRIL, LORNA Unavailable [address] + [place] [address] UNITI Unavailable [address] + [place] [address] AVRIL, LORNA Unavailable [address] + [place] [address] AVRIL GINETTE Unavailable Unavailable Unavailable AVRIL, LORNA Unavailable [address] + [place] [address] AVRILSANJAYEN Unavailable Unavailable Unavailable AVRIL, LORNA Unavailable [address] + [place] [address] UNITI Unavailable [address] + [place] [address] AVRIL, LORNA Unavailable [address] + [place] [address] UNITI Unavailable [address] + [place] [address] AVRIL, LORNA Unavailable [address] + [place] [address] UNITI Unavailable [address] + [place] [address] Care Team Providers Name Role Phone HOWARD [...] Z01.810 - Encounter Del Gunn for preprocedural [facility] cardiovascular Hospital examination / Repository Z01.810(ICD-10) 04/22/2018 [...] Somnolence / Del Gunn Active [place] R40.0(ICD-10) [facility] Hospital Repository 03/30/2018 Unknown I10 - Essential Martha, Holden Active [place] (primary) hypertension Community / I10(ICD-10) Hospital Repository 03/30/2018 Unknown I48.91 - Unspecified Martha, Papi Active [place] atrial fibrillation / Community I48.91(ICD-10) Hospital Repository 02/10/2018 Unknown Z12.4 - Encounter for [place]-Cash, Active [place] screening for [facility] malignant neoplasm of Hospital cervix / Z12.4(ICD-10) Repository 02/10/2018 Unknown N39.0 - Urinary tract Reynoso-Cash, Active [place] infection, site not [facility] specified / Hospital N39.0(ICD-10) Repository 01/22/2018 Unknown R05 - Cough / Jeffrey, Hali Chi Active [place] R05(ICD-10) [facility] Hospital Repository 09/04/2017 Unknown R60.0 - Localized Jeffrey, Hali Chi Active [place] edema / R60.0(ICD-10) [facility] Hospital Repository PROCEDURES PROCEDURES No Procedure Records FoundRESULTS RESULTS STRESS TEST ECHO W/ Observed: 04/28/2018 Status: F Source: [place] CONTRAST 8:54 AM [facility] REPOSITORY [facility] Cardiovascular Services [address] [place] [address] Stress Test Echo W/Contrast MR#: [id number] Acct: [id number] Name: GINETTE MACKENZIE Rep #: [id number] : 1960 58 From: Del Gunn MD Primary Care: Jfefrey RAM,Hali Chi Status: REG CLI Ordering Dr: [...] 04/28/18 0853 Date Del Gunn MD CC: Dle Gunn MD; Hali Mei MD Date Dictated: 04/23/18 1255 Date Transcribed: 04/28/18 0853 American Board Certified Orthotist: Signed ECHOCARDIOGRAM COMPLETE Observed: 04/22/2018 Status: F Source: [place] 4:11 PM [facility] REPOSITORY [facility] Cardiovascular Services [address] [place] [address] Echo Complete 04/22/18 1456 MR#: [id number] Acct: [id number] Name: GINETTE MACKENZIE Rep #: [id number] : 1960 58 From: Del Gunn MD [...] is no comparison study available. Ordering Physician: eDl Gunn Referring Physician: Hali Mei Chi Performed By: Noemi Mendez RDCS, RVT 04/22/18 1611 Date Del Gunn MD CC: Del Gunn MD; Hali Mei MD Date Dictated: 04/22/18 1456 Date Transcribed: 04/22/18 1611 American Board Certified Orthotist: Signed LIVER PROFILE Collected: 04/18/2018 Status: F Source: [place] 7:04 AM [facility] REPOSITORY TYPE CODE TESTS RESULT OUT OF [...] 0.11 Performed By: #### L500.3400, L500.4100 #### [facility] [address] [place], [address] LIPID PROFILE Collected: 04/18/2018 Status: F Source: [place] 7:04 AM [facility] REPOSITORY TYPE CODE TESTS RESULT OUT OF [...] 19 Performed By: #### L500.3400, L500.4100 #### [facility] [address] [place], [address] CARDIOLOGY VISIT Observed: 2018 Status: F Source: [place] REPORT 4:17 PM [facility] REPOSITORY [facility] 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 Is patient in pain?: Yes [...] DAILY #30 cap 04/14/18 [Rx Confirmed 04/14/18] [facility] History Preop cardiovascular exam (Acute) Peripheral neuropathy (Chronic) Bigeminy (Acute) Premature ventricular contractions (Acute) Abnormal EKG (Acute) Postmenopausal bleeding (Acute) Surgical History History of cervical polypectomy (Chronic) History of removal of neck cyst (Chronic) History of thyroid surgery (Chronic) [place] teeth extracted (Chronic) Family History Unknown [...] EKG W/ Observed: 03/20/2018 Status: F Source: [place] RHYTHM STRIP 11:22 AM [facility] REPOSITORY [facility] Cardiovascular Services [address] [place] [address] 12 Lead EKG with Rhythm Strip 03/19/18 1157 MR#: [id number] Acct: [id number] Name: GINETTE MACKENZIE Rep #: [id number] : 1960 57 From: Papi Thomas MD Attending Dr: [place] Ronquillo MD Status: [facility] Ordering Dr: Tony Hernandez MD Date: 03/19/18 Location: [facility] Sex: F C Admitted: Test Reason : [...] available Confirmed by PAPI THOMAS MD ([id number]), editor index MAGDALENA PEREZ ([id number]) on 03/20/2018 11:21:36 AM Referred By: [place] Ronquillo Confirmed By:PAPI THOMAS MD 03/20/18 1121 Date Papi Thomas MD CC: Tony Hernandez MD; [place] Ronquillo MD; Hali Mei MD Signed DISCHARGE INSTRUCTION Observed: 03/19/2018 Status: F Source: [place] 12:17 PM [facility] REPOSITORY [facility] Medical Records Department [address] [place] [address] Instructions for Home/Discharge Instructions 03/19/18 1215 MR#: [id number] Acct: [id number] Name: GINETTE MACKENZIE Rep #: [id number] : 1960 57 From: [place] Castrejon MD [...] 03/19/2018 Status: F Source: [place] 12:00 PM [facility] REPOSITORY TYPE CODE TESTS RESULT OUT OF RANGE REFERENCE UNITS LAB L501.1800 3.2-5.0 g/dL Normal ALB 3.8 Performed By: #### L501.1800 #### [facility] [address] [place], [address] BASIC METABOLIC Collected: 03/19/2018 Status: F Source: [place] PROFILE (BMP) 12:00 PM [facility] REPOSITORY Order Comment: 'TROP' Serial specimen #1, [...] Performed By: #### L500.2500, L501.4010, L501.5200 #### [facility] [address] [facility] [place], [address] TROPONIN-I Collected: 03/19/2018 Status: F Source: [place] 12:00 PM [facility] REPOSITORY Order Comment: 'TROP' Serial specimen #1, #2 or #3: 1 TYPE CODE TESTS RESULT OUT OF RANGE REFERENCE UNITS LAB L501.4010 <0.045 ng/mL Normal < 0.015 TROPONIN-I Result Comment: TROPONIN-I EXPECTED VALUES <0.045 Negative 0.045 - 0.590 Consistent with Cardiac Damage > OR = 0.600 Critical Value Not every elevated troponin is indicative of WI. These values should be used with clinical judgement in examining the patient's clinical picture for diagnosis. To establish a diagnosis of WI versus myocardial injury, there must be a demonstrated rise and/or fall in the troponin values, in addition to ischemic symptoms, EKG changes, new regional wall motion abnormality, and/or angiographical evidence. PLEASE NOTE: REFERENCE RANGES EDITED 17 Performed By: #### L500.2500, L501.4010, L501.5200 #### [facility] [address] [facility] [place], [address] MAGNESIUM Collected: 03/19/2018 Status: F Source: [place] 12:00 PM [facility] REPOSITORY Order Comment: 'TROP' Serial specimen #1, #2 or #3: 1 TYPE CODE TESTS RESULT OUT OF RANGE REFERENCE UNITS LAB L501.5200 1.6-2.6 mg/dL Normal MG 2.2 Performed By: #### L500.2500, L501.4010, L501.5200 #### [facility] [address] [facility] [place], [address] OPERATIVE REPORT Observed: 03/19/2018 Status: F Source: [place] 11:40 AM [facility] REPOSITORY [facility] Medical Records Department [address] [place] [address] Operative Report 03/19/18 1131 MR#: [id number] Acct: [id number] Name: GINETTE MACKENZIE Rep #: [id number] : 1960 57 From: [place] Castrejon MD PCP: Hali Mei MD, Chi Status: REG SDC Y Location: [place] [address] Problem List (1) Postmenopausal bleeding Status: Acute [...] Signed ,URINE Collected: 03/19/2018 Status: F Source: [place] 9:06 AM [facility] REPOSITORY Order Comment: Reason for Laboratory Test PRE OP TYPE CODE TESTS RESULT OUT OF REFERENCE UNITS RANGE LAB L400.8000 Negative Normal HCGUQUAL Negative Result Comment: Very dilute urine specimens, as indicated by a low specific gravity, may not contain visitor services representative levels of hCG. If is still suspected, a first morning urine specimen should be collected 48 hours later and tested. Performed By: #### L400.7600 #### [facility] [address] [facility] [place], [address] HISTORY AND PHYSICAL Observed: 03/19/2018 Status: F Source: [place] EXAM 7:18 AM [facility] REPOSITORY [facility] Medical Records Department [address] [place] [address] History and Physical 03/19/18 0715 MR#: [id number] Acct: [id number] Name: GINETTE MACKENZIE Rep #: [id number] : 1960 57 From: [place] Castrejon MD PCP: Hali Mei MD, Chi Status: PRE SDC Y Location: [facility] - Problem List (1) Postmenopausal bleeding Status: [...] removed 3. polyp removed from cervix 4. 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 Illicit Drug Use - denies use of street drugs Sexual Activity - Residence - owns a home Hours Worked - 40 hours per week Spouse-Sig Other Name - Italo Spouse-Sig Other Occupation - [employer] Control - vasectomy PHYSICAL EXAMINATION BP- 140/96 [...] 03/19/2018 Status: F Source: [place] 12:00 AM [facility] REPOSITORY Patient: GINETTE MACKENZIE : 1960 (57/F) Acct Num: [id number] Phys: Yg RAM,Summer Unit Num: [id number] Loc: [facility] Specimen: [id number] Received: 03/19/181311 Spec Type: ENDOM BX/C TISSUES [...] one cassette. / SJ:jana 03/19/18 TC:5 CPT: 11445 HEADER OPERATION: Hysteroscopy, dilation and curettage, polypectomy, Symphion PRE-OP DIAGNOSIS: Polyp of cervix uteri and postmenopausal bleeding TISSUE SUBMITTED: Endometrial curettings MICROSCOPIC DESCRIPTION Slides are reviewed. MICROSCOPIC DIAGNOSIS Endometrium, curettings: Polypoid fragments of disordered endometrium to simple hyperplasia without atypia. Focal dystrophic microcalcifications. AM:jana 03/20/18 Signed Jim Raines, DO 03/20/18 <signature on file> Performed By: #### PEMB #### [facility] [address] [facility] [place], [place], [address] CBC-COMPLETE BLOOD CNT Collected: 03/12/2018 Status: F Source: [place] NO DIFF 5:17 PM [facility] REPOSITORY TYPE CODE TESTS RESULT OUT OF [...] MPV 10.2 Performed By: #### L100.0500 #### [facility] [address] [place], [place], [address] PROTHROMBIN TIME W/INR Collected: 03/12/2018 Status: F Source: [place] 5:17 PM [facility] REPOSITORY TYPE CODE TESTS RESULT OUT OF RANGE REFERENCE UNITS LAB L300.4150 11.7-14.9 SECONDS Normal PROTIME 12.8 LAB L300.4200 Normal INR 1.0 Performed By: #### L300.3900, L300.4310 #### [facility] [address] [place], [address] PARTIAL THROMBOPLAST Collected: 03/12/2018 Status: F Source: [place] TIME 5:17 PM [facility] REPOSITORY TYPE CODE TESTS RESULT OUT OF RANGE REFERENCE UNITS LAB L300.4310 24.1-36.2 Seconds Normal PTT 27.6 Performed By: #### L300.3900, L300.4310 #### [facility] [address] [place], [address] BASIC METABOLIC Collected: 03/12/2018 Status: F Source: [place] PROFILE (BMP) 5:17 PM [facility] REPOSITORY TYPE CODE TESTS RESULT OUT OF [...] 9 Performed By: #### L500.2500, L3100.5125 #### [facility] [address] [place], [address] FOLLICLE STIMULATING Collected: 03/12/2018 Status: F Source: [place] HORMONE 5:17 PM [facility] REPOSITORY TYPE CODE TESTS RESULT OUT OF [...] 2011 Performed By: #### L500.2500, L3100.5125 #### [facility] [address] [place], [address] TYPE AND SCREEN Collected: 03/12/2018 Status: F Source: [place] 5:17 PM [facility] REPOSITORY Order Comment: Surgery Date: 03/19/18 Hx [...] NEGATIVE Screen Performed By: #### B101.7475 #### [facility] [address] [place], [address] Observed: 02/10/2018 Status: F Source: [place] CULTURE, URINE 4:30 PM [facility] REPOSITORY Urine Culture Below infection level. ORGANISM 1: Mixed Gram Pos AND Gram Neg Org Low Moor Count 1000-10,000 Performed By: #### M100.0650 #### [facility] [address] [place], [address] CERVICAL Observed: 02/10/2018 Status: F Source: [place] 4:30 PM [facility] REPOSITORY Patient: GINETTE MACKENZIE : 1960 (57/F) Acct Num: [id number] Phys: Yg RAM,Summer Unit Num: [id number] Loc: [facility] Specimen: [id number] Received: 02/10/18 - 1711 Spec Type: CERV [...] one cassette. / LEVI:jana 02/11/18 TC:5 CPT: 36631 HEADER OPERATION: Polypectomy PRE-OP DIAGNOSIS: Cervical polyp TISSUE SUBMITTED: Cervical polyp MICROSCOPIC DESCRIPTION Slides are reviewed. MICROSCOPIC DIAGNOSIS Cervical polyp, polypectomy: Fragments of inflamed benign endocervical polyp with acute and chronic inflammation and squamous metaplasia. LEVI:jana 02/12/18 Signed Galindo Sommers 02/12/18 <signature on file> Performed By: #### PCER #### [facility] 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 of containers..01 ThinPrep Vial TYPE CODE TESTS RESULT OUT OF RANGE REFERENCE UNITS LAB L7400.0800 . Normal DIAGN Comment Result Comment: NEGATIVE FOR INTRAEPITHELIAL LESION AND MALIGNANCY. LAB L7400.0900 . Normal ADEQ Comment Result Comment: Satisfactory for evaluation. Endocervical and/or squamous metaplastic cells (endocervical component) are present. LAB L7400.1400 . Normal PERFORM Comment Result Comment: Dayana Augustin, Nailer Hand (ASCP) LAB L7400.2575 . Normal TEST METHOD [...] (16/18/31/33/35/39/45/ 51/52/56/58/59/66/68) without differentiation. Performed at: - [facility] [id number] Tower Dragline Operator: Graciela Knight MD, Phone: [phone] Performed at: = - [facility] [id number] Tower Dragline Operator: Graciela Knight MD, Phone: [phone] Performed By: #### L7400.0280 #### [facility] (refer to report for specific site) refer to report for address and phone number SCREENING MAMM (CAD), Observed: 02/02/2018 Status: F Source: [place] BILAT 3:46 PM [facility] REPOSITORY [facility] Imaging Services [address] [place] [address] SCREENING MAMM (CAD), BILAT MR#: [id number] Acct: [id number] Name: GINETTE MACKENZIE Rep #: [id number] : 1960 F 57 From: Charli Ramirez MD PCP: Jeffrey RAM,Hali Chi Status: REG CLI Study: SCREENING MAMM (CAD), BILAT Date of Exam: 02/02/18 Exam# [id number] Ordering Dr: Hali Mei MD MAMMOGRAPHY - [...] delay biopsy of a clinically suspicious abnormality. [id number] Electronically Signed: Charli Ramirez MD at 8:37 EDT Tel [phone], Service support , CC: Hali Mei MD American Board Certified Orthotist: Signed ERYTHROCYTE SED RATE Collected: 01/28/2018 Status: F Source: [place] 3:57 PM [facility] REPOSITORY TYPE CODE TESTS RESULT OUT OF RANGE REFERENCE UNITS LAB L102.0000 0-30 mm/hr Normal SED RATE 8 Performed By: #### L101.9900 #### [facility] [address] [place], [address] VITAMIN B12 Collected: 01/28/2018 Status: F Source: [place] 3:57 PM [facility] REPOSITORY TYPE CODE TESTS RESULT OUT OF RANGE REFERENCE UNITS LAB L503.0105 211-911 pg/mL Normal Vitamin B12 343 Performed By: #### L503.0105 #### [facility] [address] [place], [address] CHEST PA AND LATERAL Observed: 01/22/2018 Status: F Source: [place] 3:53 PM [facility] REPOSITORY [facility] Imaging Services [address] [place] [address] Chest PA and Lateral MR#: [id number] Acct: [id number] Name: GINETTE MACKENZIE Rep #: [id number] : 1960 F 57 From: Ethan Lauren MD PCP: Hali Mei MD, Chi Status: REG CLI Study: Chest PA and Lateral Date of Exam: 01/22/18 Exam# [id number] Ordering Dr: Hali Mei MD STUDY: X-RAY [...] Service support , CC: Hali Mei MD American Board Certified Orthotist: Signed PROTHROMBIN TIME W/INR Collected: 01/22/2018 Status: F Source: [place] 3:52 PM [facility] REPOSITORY TYPE CODE TESTS RESULT OUT OF RANGE REFERENCE UNITS LAB L300.4150 11.7-14.9 SECONDS Normal PROTIME 12.5 LAB L300.4200 Normal INR 0.9 Performed By: #### L300.3900, L300.4310 #### [facility] [address] [place], [place], [address] PARTIAL THROMBOPLAST Collected: 01/22/2018 Status: F Source: [place] TIME 3:52 PM [facility] REPOSITORY TYPE CODE TESTS RESULT OUT OF RANGE REFERENCE UNITS LAB L300.4310 24.1-36.2 Seconds Normal PTT 28.1 Performed By: #### L300.3900, L300.4310 #### [facility] [address] [facility] [place], [place], [address] CBC W/DIFF, AUTOMATED Collected: 01/22/2018 Status: F Source: [place] 3:52 PM [facility] REPOSITORY TYPE CODE TESTS RESULT OUT OF [...] Lymph 1.14 Performed By: #### L100.0100 #### [facility] [address] [place], [place], [address] ALLERGEN, MINI-RAST Collected: 01/22/2018 Status: F Source: [place] 3:52 PM [facility] REPOSITORY TYPE CODE TESTS RESULT OUT OF [...] Urine Normal <0.10 Result Comment: Performed at: [facility] [id number] Tower Dragline Operator: Justin Castellano MD, Phone: [phone] LAB L5500.6153 . Normal RAST COMMENT Comment Result Comment: [...] FREE T4 Collected: 11/20/2017 Status: F Source: [facility] 8:56 AM [facility] REPOSITORY TYPE CODE TESTS RESULT OUT OF RANGE REFERENCE UNITS LAB FT4 0.89-1.76 ng/dL Free T4 1.57 Performed By: #### FT4, TSH, THYBAT #### [address] [address] TSH, HIGH SENSITIVITY Collected: 11/20/2017 Status: F Source: [facility] 8:56 AM [facility] REPOSITORY TYPE CODE TESTS RESULT OUT OF REFERENCE UNITS RANGE LAB TSH 0.550-4.780 uIU/mL Low TSH, High Sensitivity 0.415 Performed By: #### FT4, TSH, THYBAT #### [address] [address] THYROGLOBULIN BATTERY Collected: 11/20/2017 Status: F Source: [facility] (THRY & THYRAB) 8:56 AM [facility] REPOSITORY TYPE CODE TESTS RESULT OUT OF REFERENCE UNITS RANGE LAB THYRAB <4.0 IU/mL Thyroglobulin Antibody <0.9 LAB THYRN 1.6-50 ng/mL *THYROGLOBULIN Low 0.1 Performed By: #### FT4, TSH, THYBAT #### [facility] [address] [place], [place] [address] CHEST Observed: 09/24/2017 Status: F Source: [place] 10:41 AM [facility] REPOSITORY [facility] Imaging Services [address] [place] [address] Chest MR#: [id number] Acct: [id number] Name: GINETTE MACKENZIE Rep #: [id number] : 1960 F 57 From: Óscar Lomax MD PCP: Hali Mei MD, Chi Status: REG CLI Study: Chest Date of Exam: 09/24/17 Exam# [id number] Ordering Dr: Hali Mei MD STUDY: SUPERFICIAL [...] Service support , CC: Hali Mei MD American Board Certified Orthotist: Signed CBC W/DIFF, AUTOMATED Collected: 09/17/2017 Status: F Source: [place] 5:09 PM [facility] REPOSITORY TYPE CODE TESTS RESULT OUT OF [...] Lymph 1.94 Performed By: #### L100.0100 #### [facility] [address] [place], [address] COMPREHENSIVE METABOLIC Collected: 09/17/2017 Status: F Source: [facility] 5:09 PM [facility] REPOSITORY TYPE CODE TESTS RESULT OUT OF [...] GAP Performed By: #### L500.4050, L501.9520 #### [facility] [address] [place], [place], [id number] THYROID STIM HORMONE Collected: 09/17/2017 Status: F Source: [place] (TSH) 5:09 PM [facility] REPOSITORY TYPE CODE TESTS RESULT OUT OF RANGE REFERENCE UNITS LAB L501.9520 0.358-3.74 uIU/mL Normal TSH 1.85 Performed By: #### L500.4050, L501.9520 #### [facility] [address] [place], [place], [address] HEPATITIS C ANTIBODIES Collected: 09/17/2017 Status: F Source: [place] 5:09 PM [facility] REPOSITORY TYPE CODE TESTS RESULT OUT OF RANGE REFERENCE UNITS LAB L3100.0650 0.0-0.9 s/co ratio Normal HEP C AB <0.1 Result Comment: Negative: < 0.8 Indeterminate: 0.8 - 0.9 Positive: > 0.9 The CDC recommends that a positive HCV antibody result be followed up with a HCV Nucleic Acid Amplification test (766510). Performed at: - [facility] [address] [id number] Tower Dragline Operator: Louis Mariee PhD, Phone: [phone] Performed By: #### L3100.0625 #### [facility] (refer to report for specific site) refer to report for address and phone number VENOUS DUPLEX LOWER Observed: 09/15/2017 Status: F Source: [place] EXTREMITY 7:25 PM [facility] REPOSITORY [facility] Cardiovascular Services [address] [place] [address] Venous Duplex [place] - [facility] 09/04/17 1432 MR#: [id number] Acct: [id number] Name: GINETTE MACKENZIE Rep #: [id number] : 1960 57 From: Lobo Lew MD [...] MD Date Dictated: 09/04/171431 Date Transcribed: 09/15/171924 American Board Certified Orthotist: Signed LUMBAR SPINE 2 OR 3 Observed: 09/04/2017 Status: F Source: [place] V[place] 1:48 PM [facility] [place] REPOSITORY [facility] Imaging Services [address] [place] [address] Lumbar Spine 2 or 3 Views MR#: [id number] Acct: [id number] Name: GINETTE MACKENZIE Rep #: [id number] : 1960 F 57 From: Lidia Villarreal PCP: Hali Mei MD, Chi Status: REG CLI Study: Lumbar Spine 2 or 3 Views Date of Exam: 09/04/17 Exam# [id number] Ordering Dr: Hali Mei MD STUDY: X-RAY [...] Service support , CC: Hali Mei MD American Board Certified Orthotist: Signed KNEE 4 OR MORE Observed: 09/04/2017 Status: F Source: [place] 1:48 PM [facility] [place] REPOSITORY [facility] Imaging Services [address] [place] [address] [place] [address] Knee 4 or More Views MR#: [id number] Acct: [id number] Name: GINETTE MACKENZIE Rep #: [id number] : 1960 F 57 From: Lidia Villarreal PCP: Jeffrey RAM,Hali Nieves Status: REG CLI Study: Knee 4 or More Views Date of Exam: 09/04/17 Exam# [id number] Ordering Dr: Hali Mei MD STUDY: X-RAY [...] Service support , CC: Hali Mei MD American Board Certified Orthotist: Signed ALLERGIES ALLERGIES DATE TYPE / CODE NAME / CODE REACTION SEVERITY SOURCE 2018 Drug latex/[id number] Itching Unknown [facility] Allergy/4160 8921(RXNORM) Hospital 26652(SNOMED Repository CT) 03/19/2018 Drug meloxicam/F0 Unknown Unknown [facility] Allergy/4160 71488662(RX Hospital 72602(SNOMED ORM) Repository CT) ENCOUNTERS ENCOUNTERS ADMIT/DISCHARGE ACCOUNT NUMBER ADMITTING ENCOUNTER LOCATION SOURCE CLASS 04/23/2018 [id number] Ambulatory BMSBuilding: [place] BMS.CF.[facility] Repository 04/23/2018 [id number] Ambulatory [facility] ding:CVS Repository 04/22/2018 [id number] Ambulatory BMSBuilding: [place] BMS.CF.[facility] Repository 04/22/2018 [id number] Ambulatory [facility] ding:CVS Repository 04/18/2018 [id number] Ambulatory [facility] ding:LAB Repository 04/14/2018/04/14/19 [id number] Ambulatory BMSBuilding: [place] 19 BMS.[facility] Repository 03/19/2018 [id number] Ambulatory BMSBuilding: [place] [facility] Repository 03/19/2018/03/19/20 [id number] Ambulatory [address] ding:SDCRoom Repository : AC12 02/10/2018 [id number] Ambulatory [facility] ding:LABSPEC Repository 02/02/2018 [id number] Ambulatory [facility] ding:OPBI Repository 01/28/2018 [id number] Ambulatory [facility] ding:POLAB3 Repository 01/22/2018 [id number] Ambulatory [facility] ding:RAD Repository 11/20/2017 [id number] Ambulatory Building:[facility] Repository 11/20/2017 [id number] Ambulatory Building:[facility] Repository 09/24/2017 [id number] Ambulatory [facility] ding:US Repository 09/17/2017 [id number] Ambulatory [facility] ding:POLAB3 Repository 09/04/2017 [id number] [facility] ding:CVS Repository PAYERS PAYERS ENCOUNTER GUARANTOR PAYER SUBSCRIBER SOURCE 04/23/2018 GINETTE Tompkins Primary Insurance:MED GINETTE Granados [id number] MUTUAL TPAPolicy FETZERDOB: [facility] Number: [id number] [place], [place] [id number] Repository [address]Qpu: (330) Date:1503-56-65TJ [phone] () 355[address]FRQOAMABX, [place] [address]AD: CHECK WEBSITE 04/23/2018 Secondary NOT GIVENUNK [place] Insurance:SELF PAY [facility] Number: Effective Repository Date:2018-04-23 04/23/2018 GINETTE Tompkins Primary Insurance:MED GINETTE Granados [id number] MUTUAL TPAPolicy FETZERDOB: [facility] Number: [id number] [place], [place] [id number] Repository [address]Zie: (330) Date:6795-86-00FY [phone] () 96016XYIUMOZTW, [place] [address]ZO: CHECK WEBSITE 04/23/2018 Secondary NOT GIVENUNK [place] Insurance:SELF PAY [facility] Number: Effective Repository Date:2018 04/22/2018 GINETTE Tompkins Primary Insurance:MED GINETTE Granados [id number] MUTUAL TPAPolicy FETZERDOB: [facility] Number: [id number] [place], [place] [id number] Repository [address]Thh: (330) Date:2126-32-59WL [phone] () 458[address]UNSDDIUXW, [place] [address]KL: CHECK WEBSITE 04/22/2018 Secondary NOT GIVENUNK [place] Insurance:SELF PAY [facility] Number: Effective Repository Date:2018-04-22 04/22/2018 GINETTE R Primary Insurance:MED GINETTE R [place] [id number] MUTUAL TPAPolicy FETZERDOB: [facility] Number: [id number] [place], [place] [id number] Repository [address]Wvh: (330) Date:2193-93-24HR [phone] () 90674AAUHISXGM, [place] [address]GR: CHECK WEBSITE 04/22/2018 Secondary NOT GIVENUNK [place] Insurance:SELF PAY [facility] Number: Effective Repository Date:2018 04/18/2018 GINETTE R Primary Insurance:MED GINETTE R [place] [id number] MUTUAL TPAPolicy FETZERDOB: [facility] Number: [id number] [place], [place] [id number] Repository [address]Lsc: (330) Date:9149-49-46QJ [phone] () 00164KPEVYIBDB, [place] [address]RH: CHECK WEBSITE 04/18/2018 Secondary NOT GIVENUNK [place] Insurance:SELF PAY [facility] Number: Effective Repository Date:2018-04-18 2018 GINETTE R Primary Insurance:MED GINETTE R [place] [id number] MUTUAL TPAPolicy FETZERDOB: [facility] Number: [id number] [place], [place] [id number] Repository [address]Nwt: (330) Date:5105-26-90LZ [phone] () 72005BKFJXUVPM, [place] [address]XW: CHECK WEBSITE 2018 Secondary NOT GIVENUNK [place] Insurance:SELF PAY [facility] Number: Effective Repository Date:2018 03/19/2018 GINETTE R Primary Insurance:MED GINETTE R [place] [id number] MUTUAL TPAPolicy FETZERDOB: [facility] Number: [id number] [place], [place] [id number] Repository [address]Bwa: (330) Date:4247-90-29QJ [phone] () 00633SHRJRRTLJ, [place] [address]IQ: CHECK WEBSITE 03/19/2018 Secondary NOT GIVENUNK [place] Insurance:SELF PAY [facility] Number: Effective Repository Date:2018-03-19 03/19/2018 GINETTE R Primary Insurance:MED GINETTE R [place] [id number] MUTUAL TPAPolicy FETZERDOB: [facility] [place] Number: [id number] [place], [place] [id number] Repository [address]Yjv: (330) Date:5306-61-47IF [phone] (HP) [address]JAAZPKQAI, [place] [address]QB: CHECK WEBSITE 03/19/2018 Secondary NOT GIVENUNK [place] Insurance:SELF PAY [facility] Number: Effective Repository Date:2018-02-16 02/10/2018 GINETTE R Primary Insurance:MED GINETTE R [place] [id number] MUTUAL TPAPolicy FETZERDOB: [facility] Number: [id number] Bend, [place] [id number] Repository 166[address]Mot: (330) Date:3708-11-54YQ [phone] (HP) [address]EYNEFAKEP, [place] [address]BZ: CHECK WEBSITE 02/10/2018 Secondary NOT GIVENUNK [place] Insurance:SELF PAY [facility] Number: Effective Repository Date:2018-02-10 02/02/2018 GINETTE R Primary Insurance:MED GINETTE R [place] [id number] MUTUAL TPAPolicy FETZERDOB: [facility] Number: [id number] [place], [place] [id number] Repository 359[address]Yum: (330) Date:6189-75-24QY [phone] (HP) [address]ILSTLVDIZ, [place] [address]EP: CHECK WEBSITE 02/02/2018 Secondary NOT GIVENUNK [place] Insurance:SELF PAY [facility] Number: Effective Repository Date:2017-12-30 01/28/2018 GINETTE R Primary Insurance:MED GINETTE Tompkins [place] [id number] MUTUAL TPAPolicy FETZERDOB: [facility] Number: [id number] Bend, [place] [id number] Repository [address]Tyq: (330) Date:3833-95-76JI [phone] () 19692PWSNKGREZ, [place] [address]CG: CHECK WEBSITE 01/28/2018 Secondary NOT GIVENUNK [place] Insurance:SELF PAY [facility] Number: Effective Repository Date:2018-01-28 01/22/2018 GINETTE R Primary Insurance:MED GINETTE Tompkins [place] [id number] MUTUAL TPAPolicy FETZERDOB: [facility] Number: [id number] Bend, [place] [id number] Repository 07[address]Xft: (330) Date:2718-95-26JS [phone] () 34207XYKIILFRX, [place] [address]LD: CHECK WEBSITE 01/22/2018 Secondary NOT GIVENUNK [place] Insurance:SELF PAY [facility] Number: Effective Repository Date:2018-01-22 11/20/2017 GINETTE Leda Primary Insurance:MMO GINETTE Tompkins [facility] FETZERDOB: NETWORK ACCESSPolicy FETZERDOB: [place] Number: [id number] [facility] [id number] [address] [place] [address] Date:4063-01-80Qsdj [place], [place] Repository [address]Mnu: (330) Name:MANAGED CARE 22793Ofr: (HP) [phone] (HP) 11/20/2017 GINETTE Leda Primary Insurance:MMO GINETTE Leda [facility] FETZERDOB: NETWORK ACCESSPolicy FETZERDOB: [place] Number: [id number] [facility] [id number] [address] [place], [place] Date:2453-80-94Ngoq [place], [place] Repository [address]Zzm: (330) Name:[facility] CARE [id number]: (HP) [phone] (HP) 09/24/2017 GINETTE Tompkins Primary Insurance:MED GINETTE R [place] [id number] MUTUAL TPAPolicy FETZERDOB: [facility] Number: [id number] [place], [place] [id number] Repository 266[address]Nnm: (330) Date:9917-23-90RC [phone] (HP) [address]NMHOLGFPS, [place] [address]JF: CHECK WEBSITE 09/24/2017 Secondary NOT GIVENUNK [place] Insurance:SELF PAY [facility] Number: Effective Repository Date:2017-09-17 09/17/2017 Ginette Tompkins Primary Insurance:MED Ginette R [place] [id number] MUTUAL TPAPolicy FetzerDOB: [facility] Number: [id number] [place], [place] [id number] Repository [address]Rlw: (330) Date:2220-33-19CT [phone] () [address]UBMOTLMKN, [place] [address]HN: CHECK WEBSITE 09/17/2017 Secondary NOT GIVENUNK [place] Insurance:SELF PAY [facility] Number: Effective Repository Date:2017-09-17 09/04/2017 Ginette Tompkins Primary Insurance:MED Ginette Leda [place] [id number] MUTUAL TPAPolicy FetzerDOB: [facility] Number: [id number] [place], [place] [id number] Repository [address]Tbt: (330) Date:8839-51-73WC [phone] (HP) [address]AIFGOXTEY, [place] [address]TB: CHECK WEBSITE 09/04/2017 Secondary NOT GIVENUNK [place] Insurance:SELF PAY [facility] Number: Effective Repository Date:2017-09-03
== END ==
PROVIDERS: Family Provider Family Medicine Geriatric Medicine; PCP Family Medicine Geriatric Medicine; Referring Provider Internal Medicine Cardiovascular Disease; Visit Provider Internal Medicine Cardiovascular Disease
DX: Z01.810 Encounter for preprocedural cardiovascular examination (principal); G62.9 Polyneuropathy, unspecified; I49.3 Ventricular premature depolarization; I49.9 Cardiac arrhythmia, unspecified; R94.31 Abnormal electrocardiogram [ECG] [EKG]
CPT/HCPCS: 93017; 93350; Q9957; A4216; C8928

== ENCOUNTER → 2018-05-28 16:58 | Outpatient (CLI) | payer OTHER, SELFPAY ==
[2018-04-14 15:45] VITALS: BMI 41.3
[2018-05-28 20:06] LABS: Thyroid Stim Hormone (TSH) 0.17 uIU/mL (0.358-3.74)
== END ==
PROVIDERS: Family Provider Family Medicine Geriatric Medicine; PCP Family Medicine Geriatric Medicine
DX: C73 Malignant neoplasm of thyroid gland (principal); E89.0 Postprocedural hypothyroidism
CPT/HCPCS: 36415; 84443

== ENCOUNTER 2018-06-04 09:49 | Observation (INO) | payer OTHER, SELFPAY ==
[2018-04-14 15:45] VITALS: BMI 41.3
--- NOTE | 2018-05-28 17:05 | EKG12_ITS ---
Test Reason : PRE OP Blood Pressure : / mmHG Vent. Rate : 088 BPM Atrial Rate : 088 BPM P-R Int : 162 ms QRS Dur : 084 ms QT Int : 394 ms P-R-T Axes : 056 -10 034 degrees QTc Int : 476 ms Normal sinus rhythm Low voltage QRS (limb leads) Poor R Wave progression Possible Anterior infarct , age undetermined Abnormal ECG Confirmed by YANCI RAM, PRICE ([id number]), state editor NITIN WRIGHT ([id number]) on 06/01/2018 4:56:22 PM Referred By: Robina Ronquillo Confirmed By:PRICE PETE MD
[2018-05-28 18:01] LABS: Hematocrit 38.8 % (37-47); Hemoglobin 12.5 g/dl (12.0-15.0); Mean Corp Hgb Conc 32.2 g/gl (32-36); Mean Corpuscular Hgb 27.4 pg (27.0-32.0); Mean Corpuscular Volume 84.9 fL (81-99); Mean Platelet Vol. 9.5 fl (6.2-12.0); Platelet Count 214 K/mm3 (150-450); RBC Distribution Width CV 13.6 % (11.6-14.6); RBC Distribution Width SD 41.7 fl (35.1-43.9); Red Blood Count 4.57 M/mm3 (4.2-5.4); Scan Indicated on CBC? Y/N NO; White Blood Count 6.2 K/mm3 (4.4-11.0)
[2018-05-28 18:11] LABS: International Normalized Ratio 0.9; Prothrombin Time (Protime)PT. 12.3 SECONDS (11.7-14.9)
[2018-05-28 18:12] LABS: Partial Thromboplast Time 25.8 Seconds (24.1-36.2)
[2018-05-28 18:19] LABS: Hemoglobin A1c 5.8 % (4.2-6.3)
[2018-05-28 18:25] LABS: Anion Gap 8 (5-15); BUN 22 mg/dL (7-18); BUN/Creat Ratio 26.3 RATIO (10-20); Chloride 106 mmol/L (98-107); Creatinine, Serum 0.84 mg/dL (0.55-1.02); EST Glomerular Filtration Rate 75 mL/min (>60); Est Glom Filt Rate - Afr Amer 90 mL/min (>60); Glucose 87 mg/dL (74-106); Potassium 3.6 mmol/L (3.5-5.1); Sodium Level 142 mmol/L (136-145)
[2018-06-04] VITALS (15 sets, daily range): BP systolic 110–151; BP diastolic 7–94; PULSE 64–99; RESP 16–18; TEMP 36.2–37.1; O2SAT 94–100; BMI 42.0; BMI 42.7
--- NOTE | 2018-06-04 06:38 | PCM.HPOB.BLA ---
- Problem List (1) Endometrial hyperplasia without atypia, simple Status: Acute (2) Postmenopausal bleeding Status: Acute Comment: d/t endometrial polyps and submucosal fibroids History and Physical Date of Admission: 06/04/18 Surgical History and Physical Date: 05/28/2018 Name: ELIZABETH MACKENZIE Age: 58 Date of : 1960 Elizabeth Mackenzie, a 58 year old female 2 0 0 0 2, presents for LAVH, bilateral salpingectomy on June 04, 2018 at 7:15. -- Patient is scheduled to have a LAVH/BS done 06/04/2018 . Patient states that she received phone call from [facility] for her PAT yesterday and will plan to have labs done today after appointment in this office. Consents reviewed with patient and signed. jlb as above. Planned LAVH, BS with ovarian conservation for recurrent postmenopausal bleeding with endometrial hyperplasia. hx rivka observed during recent hysteroscopic polypectomy - followed by Cardiology, Dr. Gunn. m MEDICATIONS HISTORY: Current medications prescribed by our practice are: 1. clobetasol 0.05 % topical cream, use for breakouts prn Patient is also takin. Synthroid 150 mcg tablet, 1 PO QD 2. valsartan 320 mg-hydrochlorothiazide 12.5 mg tablet 3. meloxicam 15 mg tablet, daily 4. metoprolol tartrate 25 mg tablet, 1 PO BID ALLERGIES: No Known Drug Allergies, Mobic, Rash and No Known Drug Allergies Infections - Chicken pox Illnesses - Thyroid cancer, arthritis and reflux Accidents - None Hospitalizations - see surgery Review of Systems: GENERAL - Denies fever, or chills SKIN - Denies skin changes EYES - Denies visual changes EARS - Denies difficulty hearing NOSE - Denies nasal congestion or bleeding MOUTH - Denies sore throat or difficulty swallowing NECK - Denies pain or swelling RESPIRATORY - Denies shortness of breath or wheezing CARDIOVASCULAR - Denies palpitations or chest pain GASTROINTESTINAL - Denies nausea, vomiting, diarrhea, constipation GENITOURINARY - Denies dysuria, frequency of urination, incontinence of urine MUSCULOSKELETAL - Denies joint or muscle pain NEUROLOGICAL - Denies localized numbness or weakness PSYCHIATRIC - Denies depression or anxiety ENDOCRINE - Denies heat or cold intolerance, weight loss or gain HEMATO-IMMUNOLOGIC - Denies excesive bleeding with cuts SOCIAL HISTORY: Alcohol Use - RARELY Smoking - denies smoking Diet - balanced Diet Lifestyle - Exercise - active Seat Belt Use - always Employer - [employer] 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 03/19/2018 Hysteroscopic plypectomy, dilation & curettage ; Robina Castrejon MD - 2. Thyroid surgery x 2 ; - 3. neck cyst removed ; - 4. polyp removed from cervix ; - 5. [place] Teeth Removal ; - PHYSICAL EXAM BP- 136/84 Sitting, Right arm, large cuff Temp- 98.3 Taken Orally Weight- 246.20262 lbs Height- 63 inch BMI:43.67 CONSTITUTIONAL - NAD, well nourished, and well developed SKIN - No rash, lesions, or ulcers HEENT - normocephalic, atraumatic, sclerae anicteric LUNGS - CTA x2 without wheezes, crackles or rales CARDIAC - Regular rate and rhythm without rubs, murmurs, or gallops NEUROLOGICAL - normal gait, normal balance, normal motor PSYCHIATRIC - A and O to time, place, person, mood and affect ASSESSMENT/PLAN: 1. Endometrial Hyperplasia and Postmenopausal Bleeding hx EM hyperplasia s atypia Plan for LAVH - r/b/i/a reviewed - discussed how performed and role of bilateral salpingectomy r/b ovarian conservation reviewed including risk for ovarian surgery due to benign cyst or ovarian malignancy; however, pt understands that ovarian removal may increase risk for heart attack - following discussion pt reconsidering conservation - will readdress on day of surgery. Consents signed and reviewed hx bigeminy - cardiac clearance reviewed and pt low risk for cardiac event Preop labs appropriate
--- NOTE | 2018-06-04 07:15 | HYST_PTH ---
PATIENT: ELIZABETH MACKENZIE LOC: MS3 U#:[id number] AGE/SX: 58/F ROOM: MS319 RE06/04/[address]: Dr. Robina Castrejon MD : 1960 BED: 1 DIS: 06/05/2018 SPEC #: [id number] RECD: 06/04/18 14:56 STATUS: ERVIN REDeja #: [id number] JACKELINE: 06/04/18 07:[address]: Robina Ramirez DEPT: SURGICAL PATHOLOGY RECD BY: Viet Azar ENTERED: 06/05/18 11:16 SP TYPE: HYSTERECT OTHR DR: Dr. Win Matos MD Tissues: Uterus, NOS Procedures: Surgery Specimen Level V HEADER OPERATION: Hysterectomy, lap-assisted vaginal, salpingectomy PRE-OP DIAGNOSIS: Endometrial hyperplasia without atypia TISSUE SUBMITTED: Uterus and bilateral fallopian tubes MICROSCOPIC DIAGNOSIS Uterus, hysterectomy: Cervix - nabothian cysts and mild chronic inflammation. Endometrium - simple hyperplasia without atypia. Myometrium - adenomyosis and leiomyomas. Right fallopian tube - no pathologic change. Left fallopian tube - no significant pathologic change. AM:jana 06/08/18 COMMENT Case has been reviewed in consultation with Dr. Sommers who concurs with the above diagnosis. IDC:SJ MICROSCOPIC DESCRIPTION Slides are reviewed. GROSS DESCRIPTION Received in fixative is one container labeled with the patient's name and designated uterus and bilateral fallopian tubes. The specimen consists of a hysterectomy specimen consisting of uterus with cervix and attached bilateral fallopian tubes. The uterus with cervix weighs 90 gm and measures 9 x 6 x 4 cm. The serosal surface is ragged. The ectocervical mucosa is unremarkable. The external os is oval in contour. The endocervical canal measures 3 cm in length and the endocervical mucosa is smiley, glistening and unremarkable. The triangular endometrial cavity measures 4 cm in length and 1 cm in width. The endometrium is hemorrhagic without any mass lesion and measures <0.1 cm in thickness. Sections of uterine wall reveal multiple variable sized intramural nodular masses. The largest mass measures 1.5 cm in greatest dimension. Sections of these masses reveal smiley whorled cut surfaces without areas of hemorrhage, necrosis or cystic degeneration. The right fallopian tube measures 7 cm in length and 0.9?cm in diameter. The fimbrial end is not identified. Sections reveal unremarkable cut surfaces. The left fallopian tube is also similar in appearance to right and measures 6.5 cm in length and up to 0.8 cm in diameter. Quantitative Consultant sections are submitted in 11 cassettes as follows: 1 - anterior cervix, 2??posterior cervix, 3-5 - anterior uterine wall, 6-8 - posterior uterine wall, 9 - nodular masses, 10 - right fallopian tube, 11 - left fallopian tube. / LEVI:jana 06/05/18 TC:5 CPT: 73157
[2018-06-04] MEDS: Vasopressin 20 UNITS/ML Vial (08:39)
[2018-06-04] MEDS: Bupivacaine Mpf 0.5% 30 ML VIAL (09:40)
[2018-06-04] MEDS: Estrogens,Conj. 1 Tube 1 DOSE (09:42)
[2018-06-04] MEDS: Ketorolac 30 MG/ML Syringe IV ×3 (09:50→23:52)
--- NOTE | 2018-06-04 10:12 | OP.PCM_ITS ---
Problem List (1) Endometrial hyperplasia without atypia, simple Status: Acute (2) Postmenopausal bleeding Status: Acute Comment: d/t endometrial polyps and submucosal fibroids Report of Operation Date of Procedure: 06/04/18 Pre-Operative Diagnosis: Postmenopausal bleeding, endometrial hyperplasia Post-Operative Diagnosis: Postmenopausal bleeding, endometrial hyperplasia Surgery/Procedure Performed:: Examination under anesthesia, laparoscopic- assisted vaginal hysterectomy, bilateral salpingectomy, lysis of adhesions Description of Surgical Findings:: Bilateral adnexal adhesions machine shorthand reporter: Sandi Loyd Anesthesiologist: Hernando Banda Specimen's removed: Uterus, cervix, bilateral tubes Estimated Blood Loss (mL): 230 Fluids Replaced: 1400 mL Description of Procedure: Indications: 58-year-old postmenopausal para 2 presents for scheduled laparoscopic assisted vaginal hysterectomy bilateral salpingectomy for postmenopausal bleeding with endometrial hyperplasia. She was counseled regarding management options and opted to proceed with surgical management. We had previously discussed risks and benefits of ovarian conservation versus oophorectomy. Following further discussion on day of surgery she opted to proceed with ovarian conservation. Stents were signed and reviewed. Procedure: Patient was taken to the operating room and sinus performed. She is placed in the dorsal supine position and induced under general anesthesia and intubated. She was then repositioned into dorsal lithotomy and examination under anesthesia was performed. Her arms were tucked at her sides. The perineum and abdomen were prepped and draped in sterile fashion. The patient was placed into high lithotomy Lane catheter latex free was placed into the bladder. A weighted speculum was placed into the vagina the cervix visualized and grasped the anterior cervical lip using a single-tooth tenaculum and a con uterine manipulator was placed. The speculum was removed and the patient was placed into the low lithotomy and attention turned to the abdomen. Half percent bupivacaine was injected at the inferior umbilicus. Incision was made and Veress needle was introduced into the abdominal cavity with successful hanging drop test and no aspirate. The abdominal entry pressure was 0 mmHg. The abdomen was insufflated to 15 mmHg. The Veress needle was removed and trocar placed under laparoscopic guidance. The patient was placed in Trendelenburg. In similar fashion suprapubic right and left lower quadrant ports were placed following Infiltration with bupivacaine. Bilateral adnexal adhesions were notable otherwise anatomy was normal-appearing. The left adnexal adhesions were lysed sharply. Salpingectomy was then performed using the Enseal device to transect the tube from the mesosalpinx to the level of the uterine cornua. The utero-ovarian ligament was dilated and cut using the Enseal device. The round ligament was also clamped coagulated and cut. The anterior broad ligament was opened and the uterine vessels were skeletonized and with creation of the left bladder flap. The uterine vessels were coagulated from above. Attention was then turned to the right adnexa there is marked extensive adhesions that required sharp and blunt adhesio lysis to free up the tube and appropriately visualize the ovary. Right salpingectomy was performed and followed by patient and transection of the round ligament and the uterine ovarian.. The anterior ligament was dissected and the uterine vessels again skeletonized and the bladder flap creation was completed. The uterine vessels were coagulated at the site. The patient was taken out of Trendelenburg and placed into high lithotomy and attention turned to the perineum. The weighted speculum was placed into the vagina and the con cannula was removed from the cervix as was the tenaculum. Vasopressin 30 cc (centration 20 units in 100 mL normal saline) was injected the cervix was regrasped using a Holcomb Tenaculum. Circumferential incision was made around the cervical vaginal junction. The vesicovaginal membrane was sharply dissected. The anterior cul-de-sac peritoneum was identified and entered sharply. Curved [place] was placed into the space. Attention was turned to the posterior vagina and the posterior cul-de-sac was entered sharply. Along weighted speculum was then placed into the posterior cul-de-sac. The uterosacral ligaments were Thad clamped, cut and fixed using 0 Vicryl. 0 Vicryl was used for all sutures subsequently. The cardinal ligaments and uterine vessels were also Thad clamped, cut and suture ligated. The uterus and cervix with bilateral tubes was removed en bloc. Modified Walker's culdoplasty was performed incorporating the uterosacral pedicles with the posterior and anterior cul-de-sac peritoneum. The vaginal cuff was then reapproximated using serial [id number] sutures. There is good hemostasis. Attention was then turned back to the abdomen. Patient was placed into Trendelenburg and the abdomen was insufflated to 15 mmHg. The pelvis was irrigated and cleared of debris and clots. There is no evidence of active bleeding. This portion of the procedure was completed. The laparoscope was removed from the abdomen and abdomen desufflated patient was given several deep breaths for further expulsion of the carbon dioxide. The trochars were removed one by one. The incisional sites were closed using 4-0 Monocryl. Steri-Strips and OpSite dressing were placed over the sites. Premarin soaked vaginal packing was placed vaginally. The patient was then placed into the dorsal supine position arms and tucked, awakened, extubated and transferred to the recovery room without complication. She tolerated the procedure well. Sponge, needle, instrument counts were correct x2. - Complications None - Admit VTE Documentation VTE Present on Admission: No VTE Mechan Device Prophylaxis: SCD's VTE Pharm Prophylaxis ordered?: No
[2018-06-04] MEDS: Dextrose 5%-Lactated Ringers 1,000 ML 125 ML IV (12:17)
[2018-06-04] MEDS: oxyCODONE 5 MG Tablet PO ×2 (12:24→16:27)
[2018-06-04] MEDS: Enoxaparin 40 MG/0.4 ML Syringe SC (16:27)
[2018-06-04] MEDS: BENZOCAINE/MENTHOL 1 LOZENGE MUCOUS MEM ×2 (18:36→21:37)
--- NOTE | 2018-06-04 18:40 | PCM.PN.OB ---
Patient Problems: Active and Suspected Problems (Last Updated 04/14/18 @ 16:26 by Reny Saldivar) Endometrial hyperplasia without atypia, simple (Acute) Subjective: Pain is minimal. OOB and voiding. Some painful pressure with urination. Denies chest pain, shortness of breath, palpitations, flatus. Tolerates regular diet without nausea or vomiting. Objective: AVSS - Physical Exam General: Alert, Oriented x3, Cooperative, No apparent distress HEENT: Atraumatic, Normocephalic Lungs: Clear to auscultation, Normal air movement Cardiovascular: Regular rate, Regular Rhythm Abdomen: Soft, Non Tender, Non-Distended, Hypoactive Bowel Sounds, - - incisional dressing intact, approx 60% saturation and umbilical dressing Extremities: No edema, No Calf Tenderness Neurological: Neuro grossly intact Psych/Mental Status: Normal Affect, Appropriate, Alert and oriented to time, place, person, mood and affect Vital Signs Temp Pulse Resp BP Pulse Ox 98.1 F 86 18 151/90 H 94 06/04/18 16:59 06/04/18 16:59 06/04/18 16:59 06/04/18 16:59 06/04/18 16:59 Oxygen Flow Rate (L/min) 2 Oxygen Delivery Method Room Air Weight: 112.945 kg Body Mass Index (BMI) 42.7 Intake and Output for Last 24 Hours 06/02/18 06/03/18 06/04/18 23:59 23:59 23:59 Intake Total 2832 / 2832 Output Total 350 / 350 Balance 2482 / 2482 Medical Necessity - Tobacco Use Smoking Status: Never smoker Assessment/Plan All Active Problems (Last Updated 04/14/18 @ 16:26 by Reny Saldivar) Endometrial hyperplasia without atypia, simple (Acute) Daytime somnolence (Acute) Preop cardiovascular exam (Acute) Bigeminy (Acute) Premature ventricular contractions (Acute) Abnormal EKG (Acute) Postmenopausal bleeding (Acute) 58yo s/p LAVH, BS doing well. -Incentive spirometry demonstrated and encouraged -Ambulation encouraged, Lovenox for DVT ppx -Regular diet -DC IV fluids after current bag complete -Vaginal packing in situ, for removal in am -Routine postop care
[2018-06-04] MEDS: Metoprolol Tartrate 25 MG Tablet PO (21:33)
[2018-06-04] MEDS: 0.9% NaCl Peripheral Flush Adult/Peds IV (23:53)
[2018-06-05 02:08] VITALS: BP 128/67; PULSE 90; RESP 18; TEMP 37.1; O2SAT 97
[2018-06-05] MEDS: Acetaminophen 500 MG Tablet 1000 MG PO ×2 (03:59→12:24)
[2018-06-05] MEDS: Levothyroxine 150 MCG Tablet PO (05:51)
[2018-06-05] MEDS: Ketorolac 30 MG/ML Syringe IV (05:51)
[2018-06-05] MEDS: 0.9% NaCl Peripheral Flush Adult/Peds IV (05:52)
[2018-06-05 06:42] LABS: Hemoglobin 11.9 g/dl (12.0-15.0); Mean Corp Hgb Conc 32.2 g/gl (32-36); Mean Corpuscular Hgb 27.5 pg (27.0-32.0); Mean Corpuscular Volume 85.5 fL (81-99); Mean Platelet Vol. 10.5 fl (6.2-12.0); Platelet Count 238 K/mm3 (150-450); RBC Distribution Width CV 13.5 % (11.6-14.6); RBC Distribution Width SD 41.1 fl (35.1-43.9); Red Blood Count 4.33 M/mm3 (4.2-5.4); White Blood Count 15.9 K/mm3 (4.4-11.0)
[2018-06-05 06:44] LABS: Scan Indicated on CBC? Y/N NO
[2018-06-05 06:45] LABS: EST Glomerular Filtration Rate 54 mL/min (>60); Est Glom Filt Rate - Afr Amer 66 mL/min (>60); Estimated Creatinine Clearance 48.14 ml/min
[2018-06-05 07:05] VITALS: O2SAT 95
[2018-06-05 07:52] VITALS: BP 124/75; PULSE 89; RESP 16; TEMP 37; O2SAT 98
[2018-06-05 08:06] VITALS: PULSE 89
[2018-06-05] MEDS: Pantoprazole Sodium 20 MG Tablet PO (08:06)
[2018-06-05] MEDS: Metoprolol Tartrate 25 MG Tablet PO (08:06)
[2018-06-05] MEDS: hydroCHLOROthiazide 12.5mg 12.5 MG PO (10:37)
[2018-06-05] MEDS: Losartan Potassium 100 MG Tablet PO (10:37)
[2018-06-05] MEDS: BENZOCAINE/MENTHOL 1 LOZENGE MUCOUS MEM (11:49)
--- NOTE | 2018-06-05 12:05 | DCINST_ITS ---
Discharge Diet: No Restrictions Discharge Activity: Return to Normal Activity, May not drive while taking narcotic pain medications., May Shower, - - No tub bath for 2 weeks May resume sexual activity in: 6 weeks Lifting Restrictions: 10 lb Call your doctor if your incision/area has: Continuous Slow Oozing, Sudden Increased Bleeding, Increased Pain/ Swelling, Increased Redness Call your doctor if you observe: Fever of 101 or Higher, Inability to urinate, Inability to have a bowel movement, Using more than one pad per hour, Shortness of breath, Chest pain, Calf discomfort, Uncontrolled pain Suture Line Care: Avoid Pulling/Pushing Remove Dressing in (days):: 4 - Remove steristrips on Friday Cleanse incision/area with: Soap & Water Additional Instructions: Do not take your Meloxicam until Friday. Allergies/Adverse Reactions: Allergies latex Allergy (Verified 05/27/18 15:15) Itching Medications to take at Discharge Levothyroxine [Synthroid] 150 mcg PO DAILY 03/11/18 Meloxicam 15 mg PO DAILY 03/11/18 Omeprazole 20 mg PO DAILY 03/11/18 Valsartan/Hydrochlorothiazide [Valsartan-Hctz 320-12.5 mg Tab] 1 ea PO DAILY 03/11/18 glucosamine sulfate dipotassium chloride 1,000 mg tablet 1,000 mg PO BID tab 04/14/18 omega-3 fatty acids 1,000 mg capsule 1,000 mg PO DAILY 04/14/18 metoprolol tartrate 25 mg tablet 25 mg PO BID #180 tab 05/20/18 Acetaminophen [Tylenol] 1,000 mg PO Q8H PRN PRN tablet 06/05/18 Docusate Sodium [Colace] 100 mg PO BID PRN PRN #60 capsule 06/05/18 Oxycodone [Oxyir] 5 mg PO Q6H PRN PRN 7 Days #12 tab 06/05/18 Pantoprazole Sodium [Protonix] 20 mg PO DAILY tablet 06/05/18 The following prescriptions were given: Oxycodone [Oxyir] 5 mg PO Q6H PRN PRN 7 Days #12 tab PRN Reason: Mod-Severe Pain (4-01/14) Docusate Sodium [Colace] 100 mg PO BID PRN PRN #60 capsule PRN Reason: Constipation Orders to be completed after discharge: 12 Lead EKG [[facility]] Time Frame: 05/27/18, Facility: [facility], Location: Cardiovascular Services Basic Metabolic Profile (BMP) Time Frame: 05/27/18, Location: Laboratory Thyroid Stim Hormone (TSH) Time Frame: 05/27/18, Location: Laboratory Primary Care Physician: Win Matos Chi, MD [Primary Care Provider] - Test Results: Test results from this visit will be discussed in further detail at your follow- up appointment, if applicable. Please Follow Up With: Robina Ronquillo MD When: 1-2 weeks Please Follow Up With: Robina Ronquillo MD When: 6 weeks
[2018-06-05 12:21] VITALS: BP 128/83; PULSE 70; RESP 16; TEMP 36.6; O2SAT 97
== END 2018-06-05 12:58 | disposition home or self-care (01) ==
LOC: SDC 14:35 → MS3 06-05 06:43
PROVIDERS: Admitting Provider Obstetrics & Gynecology; Family Provider Family Medicine Geriatric Medicine; PCP Family Medicine Geriatric Medicine; Referring Provider Obstetrics & Gynecology; Visit Provider Obstetrics & Gynecology
PROC: 0UT9FZZ Resection of Uterus, Via Natural or Artificial Opening With Percutaneous Endoscopic Assistance (ICD-10-PCS; CPT 58552; principal; 2018-06-04 06:50)
DX: N85.01 Benign endometrial hyperplasia (principal); D25.0 Submucous leiomyoma of uterus; N95.0 Postmenopausal bleeding; I48.91 Unspecified atrial fibrillation; I10 Essential (primary) hypertension; K21.9 Gastro-esophageal reflux disease without esophagitis; Z85.850 Personal history of malignant neoplasm of thyroid; Z79.899 Other long term (current) drug therapy; M19.90 Unspecified osteoarthritis, unspecified site; N73.6 Female pelvic peritoneal adhesions (postinfective); R94.31 Abnormal electrocardiogram [ECG] [EKG]
CPT/HCPCS: 58552; 36415; 80048; 82565; 83036; 85027; 85610; 85730; 86850; 86900; 88307; 93005; 96361; 96372; 96374; 96376; 99218; J7120; A4216; C1760; G0378; G0379; J2405

== ENCOUNTER → 2018-09-14 16:27 | Outpatient (CLI) | payer OTHER, SELFPAY ==
[2018-06-04 12:12] VITALS: BMI 42.7
--- NOTE | 2018-09-14 16:34 | RAD_ITS ---
STUDY: X-RAY CHEST REASON FOR EXAM: Female, 58 years old. Productive cough on and off few months TECHNIQUE: PA and lateral views of the chest. COMPARISON: May 25, 2017 chest x-ray FINDINGS: The lung markings are relatively similar. There is minimal interstitial prominence. There is a stable focus of scarring or linear density in the right upper lobe. There is no demonstrated pleural abnormality. Normal size heart. Normal mediastinum and ashanti. Normal visualized pulmonary arteries. There is mild atherosclerotic tortuosity of the aortic arch and descending thoracic aorta. There are diffuse degenerative changes of the visualized thoracic spine. Normal visualized ribs, clavicles, and shoulders. There is no demonstrated abnormality of the visualized soft tissue structures of the upper abdomen. RAD/Chest PA and Lateral IMPRESSION: Stable chest, No demonstrated acute cardiopulmonary process. Electronically Signed: Cande Wynne MD at 17:54 EDT Tel , Service support ,
== END ==
PROVIDERS: Family Provider Family Medicine Geriatric Medicine; PCP Family Medicine Geriatric Medicine; Referring Provider Family Medicine Geriatric Medicine; Visit Provider Family Medicine Geriatric Medicine
DX: R68.83 Chills (without fever) (principal); R69 Illness, unspecified
CPT/HCPCS: 71046; 87633

== ENCOUNTER → 2018-09-21 | Outpatient (CLI) | payer OTHER, SELFPAY ==
[2018-06-04 12:12] VITALS: BMI 42.7
[2018-09-21 17:33] LABS: Absolute Lymphocyte Count 3.41 X10^3/ul (0.83-4.51); Absolute Neutrophil Count 6.7 X10^3/uL (2.0-7.7); Basophil# 0.01 X10^3/uL; Basophil% 0.1 % (0-1); Eosinophils% 1.8 % (0-5); Hemoglobin 12.5 g/dl (12.0-15.0); Lymphocyte # 3.41 X10^3/ul (4.0); Lymphocyte % 30.4 % (19-41); Mean Corp Hgb Conc 32.1 g/gl (32-36); Mean Corpuscular Hgb 26.8 pg (27.0-32.0); Mean Corpuscular Volume 83.7 fL (81-99); Mean Platelet Vol. 10.3 fl (6.2-12.0); Monocyte# 0.84 X10^3/uL; Monocyte% 7.5 % (0-10); Neutrophil # 6.69 X10^3/uL (2.7-7.7); Neutrophil % 59.7 % (47-70); Platelet Count 274 K/mm3 (150-450); RBC Distribution Width CV 13.9 % (11.6-14.6); RBC Distribution Width SD 42.1 fl (35.1-43.9); Red Blood Count 4.66 M/mm3 (4.2-5.4); White Blood Count 11.2 K/mm3 (4.4-11.0)
[2018-09-21 17:57] LABS: POSITIVE COUNT NO; POSITIVE DIFFERENTIAL NO; POSITIVE MORPHOLOGY NO
[2018-09-21 18:22] LABS: AST(SGOT) 18 U/L (15-37); Alanine Aminotransfer ALT/SGPT 31 U/L (13-56); Albumin, Serum 3.5 g/dL (3.2-5.0); Alkaline Phosphatase 79 U/L (45-117); Anion Gap 9 (5-15); BUN 26 mg/dL (7-18); Calcium,Total 8.4 mg/dL (8.5-10.1); Chloride 103 mmol/L (98-107); Creatinine, Serum 0.87 mg/dL (0.55-1.02); EST Glomerular Filtration Rate 71 mL/min (>60); Est Glom Filt Rate - Afr Amer 86 mL/min (>60); Globulin 3.5 g/dL (2.2-4.2); Glucose 98 mg/dL (74-106); Potassium 3.6 mmol/L (3.5-5.1); Sodium Level 141 mmol/L (136-145); Thyroid Stim Hormone (TSH) 0.59 uIU/mL (0.358-3.74)
== END | disposition home or self-care (01) ==
LOC: POLAB3 15:49
PROVIDERS: Family Provider Family Medicine Geriatric Medicine; PCP Family Medicine Geriatric Medicine; Visit Provider Family Medicine Geriatric Medicine
DX: I10 Essential (primary) hypertension (principal)
CPT/HCPCS: 36415; 80053; 84443; 85025

== ENCOUNTER → 2019-02-22 | Outpatient (CLI) | payer OTHER, SELFPAY ==
[2018-11-12 15:56] VITALS: BMI 41.3
--- NOTE | 2019-02-22 15:48 | BI_ITS ---
MAMMOGRAPHY - BILATERAL SCREENING REASON FOR EXAM: Female, 58 years old. Routine annual screening examination. PERTINENT HISTORY: Non-contributory. TECHNIQUE: Digital bilateral breast machelle (3D mammographic acquisition) in the CC and MLO projections. 2-D mediolateral oblique (MLO) and craniocaudad (CC) views of both breasts were obtained. CAD: Full Field Digital Mammography with Computer Added Detection was performed. COMPARISON: Comparison is made with prior study dated February 02, 2018 and April 09, 2016. FINDINGS: Breast Composition: The breasts are heterogeneously dense, which may obscure small masses. There are no dominant masses or suspicious calcifications. No other significant abnormalities are identified. There has been no significant change since the prior study. BI/SCREEN MAMM (CAD) W/MACHELLE BILAT IMPRESSION: Stable bilateral screening mammogram. Yearly follow-up mammogram recommended. (A) ASSESSMENT CATEGORY: BIRADS Category 1: Negative. A letter regarding these results will be sent to the patient by the facility within 30 days. Approximately 10% of breast cancers are not detected by mammography. A normal mammogram should not delay biopsy of a clinically suspicious abnormality. [id number] Electronically Signed: Charli Ramirez, at 8:19 EST , Service support ,
== END | disposition home or self-care (01) ==
LOC: OPBI 15:46
PROVIDERS: Family Provider Family Medicine Geriatric Medicine; PCP Family Medicine Geriatric Medicine; Referring Provider Family Medicine Geriatric Medicine; Visit Provider Family Medicine Geriatric Medicine
DX: Z12.31 Encounter for screening mammogram for malignant neoplasm of breast (principal)
CPT/HCPCS: 77063; 77067

== ENCOUNTER → 2019-10-02 | Outpatient (CLI) | payer OTHER, SELFPAY ==
[2019-06-07 16:01] VITALS: BMI 41.8
[2019-10-02 08:00] LABS: Absolute Lymphocyte Count 1.53 X10^3/uL (0.83-4.51); Absolute Neutrophil Count 2.9 X10^3/uL (2.0-7.7); Basophil# 0.05 X10^3/uL; Eosinophil# 0.16 X10^3/uL; Eosinophils% 3.2 % (0-5); Hematocrit 39.7 % (37-47); Hemoglobin 12.8 g/dL (12.0-15.0); Lymphocyte # 1.53 X10^3/ul (4.0); Lymphocyte % 30.5 % (19-41); Mean Corp Hgb Conc 32.2 g/dL (32-36); Mean Corpuscular Hgb 27.2 pg (27.0-32.0); Mean Corpuscular Volume 84.3 fL (81-99); Mean Platelet Vol. 10.5 fl (6.2-12.0); Monocyte# 0.39 X10^3/uL; Monocyte% 7.8 % (0-10); NRBC Flagged by Analyzer 0 % (0-5); Neutrophil # 2.87 X10^3/uL (2.7-7.7); Neutrophil % 57.3 % (47-70); Platelet Count 241 K/mm3 (150-450); RBC Distribution Width CV 12.7 % (11.6-14.6); Red Blood Count 4.71 M/mm3 (4.2-5.4)
[2019-10-02 08:28] LABS: AST(SGOT) 19 U/L (15-37); Alanine Aminotransfer ALT/SGPT 24 U/L (13-56); Albumin, Serum 3.5 g/dL (3.2-5.0); Alkaline Phosphatase 75 U/L (45-117); Anion Gap 7 (5-15); BUN 24 mg/dL (7-18); BUN/Creat Ratio 25.8 RATIO (10-20); Calcium,Total 8.9 mg/dL (8.5-10.1); Chloride 107 mmol/L (98-107); Cholesterol 148 mg/dL (200); Creatinine, Serum 0.93 mg/dL (0.55-1.02); EST Glomerular Filtration Rate 66 mL/min (>60); Est Glom Filt Rate - Afr Amer 79 mL/min (>60); Globulin 3.5 g/dL (2.2-4.2); Glucose 110 mg/dL (74-106); High Density Lipoprotein 48 mg/dL; Potassium 3.9 mmol/L (3.5-5.1); Sodium Level 142 mmol/L (136-145); Thyroid Stim Hormone (TSH) 1.19 uIU/mL (0.358-3.74); Triglycerides 104 mg/dL; Very Low Density Lipoprotein 21 mg/dL (5-40)
== END | disposition home or self-care (01) ==
PROVIDERS: Internal Medicine Cardiovascular Disease; PCP Family Medicine Geriatric Medicine; Referring Provider Family Medicine Geriatric Medicine; Visit Provider Family Medicine Geriatric Medicine
DX: I10 Essential (primary) hypertension (principal); E55.9 Vitamin D deficiency, unspecified
CPT/HCPCS: 36415; 80053; 80061; 82248; 82306; 84443; 85025

== ENCOUNTER → 2019-12-22 | Outpatient (CLI) | payer OTHER, SELFPAY ==
[2019-10-22 13:12] VITALS: BMI 41.8
[2019-12-22 17:56] LABS: T4 Free Direct 1.25 ng/dL (0.76-1.46); Thyroid Stim Hormone (TSH) 1.56 uIU/mL (0.358-3.74)
[2019-12-24 16:57] LABS: Anti-Thyroglobulin AB < 1.0 IU/mL (0.0-0.9); Thyroglobulin, Serum Qt. < 0.1 ng/mL (1.5-38.5)
== END | disposition home or self-care (01) ==
LOC: LAB 15:56
PROVIDERS: PCP Family Medicine Geriatric Medicine
DX: C73 Malignant neoplasm of thyroid gland (principal)
CPT/HCPCS: 36415; 84432; 84439; 84443; 86800

== ENCOUNTER → 2020-01-19 | Outpatient (CLI) | payer OTHER, SELFPAY ==
[2019-10-22 13:12] VITALS: BMI 41.8
== END | disposition home or self-care (01) ==
LOC: MTDU 17:08
PROVIDERS: PCP Family Medicine Geriatric Medicine; Referring Provider Family Medicine Geriatric Medicine; Visit Provider Family Medicine Geriatric Medicine
DX: U07.1 COVID-19 (principal)
CPT/HCPCS: 87635; C9803; U0003

== ENCOUNTER → 2020-04-13 15:43 | Outpatient (CLI) | payer OTHER, SELFPAY ==
[2019-10-22 13:12] VITALS: BMI 41.8
[2020-02-22 15:53] VITALS: BMI 42.4
--- NOTE | 2020-04-13 15:47 | BI_ITS ---
MAMMOGRAPHY - BILATERAL SCREENING REASON FOR EXAM: Female, 60 years old. Routine annual screening examination. PERTINENT HISTORY: Non-contributory. TECHNIQUE: Digital bilateral breast machelle (3D mammographic acquisition) in the CC and MLO projections. 2-D mediolateral oblique (MLO) and craniocaudad (CC) views of both breasts were obtained. CAD: Full Field Digital Mammography with Computer Added Detection was performed. COMPARISON: Comparison is made with prior study dated 02/22/2019 and 02/02/2018. FINDINGS: Breast Composition: The breasts are heterogeneously dense, which may obscure small masses. There are no dominant masses or suspicious calcifications. Small benign-appearing bilateral axillary lymph nodes. No other significant abnormalities are identified. There has been no significant change since the prior study. BI/SCREEN MAMM (CAD) W/MACHELLE BILAT IMPRESSION: Stable bilateral screening mammogram. Yearly follow-up mammogram recommended. (A) ASSESSMENT CATEGORY: BIRADS Category 2: Benign. A letter regarding these results will be sent to the patient by the facility within 30 days. Approximately 10% of breast cancers are not detected by mammography. A normal mammogram should not delay biopsy of a clinically suspicious abnormality. [id number] Electronically Signed: Charli Ramirez, at 8:42 EST , Service support ,
== END ==
PROVIDERS: PCP Family Medicine Geriatric Medicine; Referring Provider Family Medicine Geriatric Medicine; Visit Provider Family Medicine Geriatric Medicine
DX: Z12.31 Encounter for screening mammogram for malignant neoplasm of breast (principal)
CPT/HCPCS: 77063; 77067

== ENCOUNTER → 2020-04-20 15:52 | Outpatient (CLI) | payer OTHER, SELFPAY ==
[2020-02-22 15:53] VITALS: BMI 42.4
[2020-04-20 16:36] LABS: Absolute Lymphocyte Count 2.37 X10^3/uL (0.83-4.51); Absolute Neutrophil Count 3.4 X10^3/uL (2.0-7.7); Basophil# 0.04 X10^3/uL; Basophil% 0.6 % (0-1); Eosinophil# 0.16 X10^3/uL; Eosinophils% 2.4 % (0-5); Hematocrit 40.6 % (37-47); Hemoglobin 13.4 g/dL (12.0-15.0); Lymphocyte # 2.37 X10^3/ul (4.0); Lymphocyte % 35.6 % (19-41); Mean Corpuscular Hgb 27.5 pg (27.0-32.0); Mean Corpuscular Volume 83.4 fL (81-99); Mean Platelet Vol. 10.4 fl (6.2-12.0); Monocyte# 0.62 X10^3/uL; Monocyte% 9.3 % (0-10); NRBC Flagged by Analyzer 0 % (0-5); Neutrophil # 3.43 X10^3/uL (2.7-7.7); Neutrophil % 51.6 % (47-70); Platelet Count 257 K/mm3 (150-450); RBC Distribution Width CV 12.8 % (11.6-14.6); RBC Distribution Width SD 38.9 fl (35.1-43.9); Red Blood Count 4.87 M/mm3 (4.2-5.4); White Blood Count 6.7 K/mm3 (4.4-11.0)
[2020-04-20 17:17] LABS: ALB/GLOB Ratio 1.1 RATIO (0.9-2.4); AST(SGOT) 16 U/L (15-37); Alanine Aminotransfer ALT/SGPT 28 U/L (13-56); Albumin, Serum 3.9 g/dL (3.2-5.0); Alkaline Phosphatase 76 U/L (45-117); Anion Gap 6 (5-15); BUN 23 mg/dL (7-18); BUN/Creat Ratio 23.1 RATIO (10-20); Calcium,Total 8.9 mg/dL (8.5-10.1); Chloride 104 mmol/L (98-107); EST Glomerular Filtration Rate 60 mL/min (>60); Est Glom Filt Rate - Afr Amer 73 mL/min (>60); Globulin 3.6 g/dL (2.2-4.2); Glucose 99 mg/dL (74-106); Potassium 3.7 mmol/L (3.5-5.1); Protein, Total 7.5 g/dL (6.4-8.2); Sodium Level 138 mmol/L (136-145)
== END ==
PROVIDERS: PCP Family Medicine Geriatric Medicine; Visit Provider Family Medicine Geriatric Medicine
DX: I10 Essential (primary) hypertension (principal)
CPT/HCPCS: 36415; 80053; 84443; 85025

== ENCOUNTER → 2020-06-23 15:47 | Outpatient (CLI) | payer OTHER, SELFPAY ==
[2020-02-22 15:53] VITALS: BMI 42.4
--- NOTE | 2020-06-23 15:49 | RAD_ITS ---
STUDY: X-RAY - RIGHT FOOT CLINICAL: Female, 60 years old. PAIN TECHNIQUE: 3 view(s) of the foot. COMPARISON: None. FINDINGS: There is a plantar calcaneal spur. Normal visualized subtalar, talonavicular, calcaneocuboid, tarsal and tarsometatarsal articulations. Normal metatarsi. There is degenerative arthrosis of the metatarsophalangeal joint of the hallux with a hallux valgus deformity and bunion. Normal tibial and fibular sesamoid bones. Normal interphalangeal joint of the great toe. Normal phalanges of the great toe. Normal second through fifth metatarsophalangeal joints. Normal interphalangeal joints and phalanges of the lesser toes. The soft tissue structures are unremarkable. RAD/Foot min 3 Views IMPRESSION: Degenerative changes at the first MTP joint. Electronically Signed: Rolan Ochoa MD ([place]) at 15:29 EDT , Service support ,
--- NOTE | 2020-06-23 15:49 | RAD_ITS ---
STUDY: X-RAY - LEFT FOOT CLINICAL: Female, 60 years old. PAIN TECHNIQUE: 3 view(s) of the foot. COMPARISON: None. FINDINGS: There is a plantar calcaneal spur. Normal visualized subtalar, talonavicular, calcaneocuboid, tarsal and tarsometatarsal articulations. Normal metatarsi. There is degenerative arthrosis of the metatarsophalangeal joint of the hallux . Normal tibial and fibular sesamoid bones. Normal interphalangeal joint of the great toe. Normal phalanges of the great toe. Degenerative narrowing and marginal spur formation the second MTP joint. Normal interphalangeal joints and phalanges of the lesser toes. The soft tissue structures are unremarkable. 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
== END ==
PROVIDERS: PCP Family Medicine Geriatric Medicine; Referring Provider Podiatrist; Visit Provider Podiatrist
DX: M77.40 Metatarsalgia, unspecified foot (principal)
CPT/HCPCS: 73630

== ENCOUNTER → 2020-09-27 06:13 | Outpatient (CLI) | payer OTHER, SELFPAY ==
[2020-07-03 15:05] VITALS: BMI 41.1
--- NOTE | 2020-09-27 06:37 | MRI_ITS ---
STUDY: MRI BRAIN WITH AND WITHOUT CONTRAST REASON FOR EXAM: Female, 60 years old. MONOPLEGIA OF RT UPPER AND LOWER LIMB TECHNIQUE: Standardized multiplanar fat and water weighted pulse sequences were obtained. 22ml IV Dotarem was administered for the contrast portion of the examination. COMPARISON: None. FINDINGS: Normal size of the ventricles and extra-axial spaces for the patient''s age. Normal white matter tracts of the supratentorial brain. There is no evidence for recent intracranial ischemia or other cause of cytotoxic edema on diffusion weighted imaging (DWI). Normal T2* images of the brain without demonstrated susceptibility artifact. There is no demonstrated hemosiderin stain. Normal bilateral basal ganglia. Normal thalami. There is no extra-axial fluid accumulation. Normal flow voids within the major intracranial circulation suggesting patency by spin echo criteria. Normal venous enhancement. There is no enhancing intra-axial or extra-axial abnormality. Normal sella turcica, pituitary gland, infundibular stalk, optic chiasm and hypothalamus. Normal tectal plate and pineal gland. Normal midbrain, andre and medulla. Normal cerebellum. Normal basal cisterns. Normal bilateral temporal bones. Normal bilateral internal auditory canals. No demonstrated orbital abnormality, within the constraints of a routine brain study. Normal visualized paranasal sinuses. Normal calvarium and skull base. 2 cm cyst within the posterior nasopharynx just to the right of midline which may represent a Tornwaldt cyst or a cyst of the adenoid. Normal visualized upper cervical spine. MRI/Brain W/WO Contrast IMPRESSION: Normal unenhanced and enhanced MRI of the brain. Electronically Signed: Óscar Lloyd MD at 18:23 EDT Tel , Service support ,
[2020-09-27 06:50] LABS: CREATININE FINGERSTICK 0.9 mg/dL (0.55-1.02); EGFR FINGERSTICK > 60.0000 mL/min (>60)
== END ==
PROVIDERS: PCP Family Medicine Geriatric Medicine; Referring Provider Family Medicine Geriatric Medicine; Visit Provider Family Medicine Geriatric Medicine
DX: G83.11 Monoplegia of lower limb affecting right dominant side (principal); G83.21 Monoplegia of upper limb affecting right dominant side
CPT/HCPCS: 70553; A9575

== ENCOUNTER → 2020-10-19 14:30 | Outpatient (CLI) | payer OTHER, SELFPAY ==
[2020-07-03 15:05] VITALS: BMI 41.1
[2020-10-19 17:13] LABS: Absolute Lymphocyte Count 1.93 X10^3/uL (0.83-4.51); Absolute Neutrophil Count 3.7 X10^3/uL (2.0-7.7); Basophil# 0.05 X10^3/uL; Basophil% 0.8 % (0-1); Eosinophil# 0.17 X10^3/uL; Eosinophils% 2.6 % (0-5); Hematocrit 38.5 % (37-47); Hemoglobin 12.6 g/dL (12.0-15.0); Lymphocyte # 1.93 X10^3/ul (0.83-4.51); Lymphocyte % 29.8 % (19-41); Mean Corp Hgb Conc 32.7 g/dL (32-36); Mean Corpuscular Hgb 27.5 pg (27.0-32.0); Mean Corpuscular Volume 84.1 fL (81-99); Mean Platelet Vol. 10.7 fl (6.2-12.0); Monocyte# 0.56 X10^3/uL; Monocyte% 8.7 % (0-10); NRBC Flagged by Analyzer 0 % (0-5); Neutrophil # 3.74 X10^3/uL (2.7-7.7); Neutrophil % 57.8 % (47-70); Platelet Count 251 K/mm3 (150-450); RBC Distribution Width SD 39.3 fl (35.1-43.9); Red Blood Count 4.58 M/mm3 (4.2-5.4); White Blood Count 6.5 K/mm3 (4.4-11.0)
[2020-10-19 18:15] LABS: ALB/GLOB Ratio 1.1 RATIO (0.9-2.4); AST(SGOT) 21 U/L (15-37); Alanine Aminotransfer ALT/SGPT 31 U/L (13-56); Albumin, Serum 3.7 g/dL (3.2-5.0); Alkaline Phosphatase 79 U/L (45-117); Anion Gap 5 (5-15); BUN 19 mg/dL (7-18); BUN/Creat Ratio 21.3 RATIO (10-20); Calcium,Total 8.3 mg/dL (8.5-10.1); Chloride 107 mmol/L (98-107); Creatinine, Serum 0.89 mg/dL (0.55-1.02); EST Glomerular Filtration Rate 69 mL/min (>60); Est Glom Filt Rate - Afr Amer 83 mL/min (>60); Globulin 3.4 g/dL (2.2-4.2); Glucose 107 mg/dL (74-106); Potassium 3.8 mmol/L (3.5-5.1); Protein, Total 7.1 g/dL (6.4-8.2); Sodium Level 138 mmol/L (136-145); Thyroid Stim Hormone (TSH) 2.24 uIU/mL (0.358-3.74)
[2020-10-19 21:27] LABS: Vitamin D,25 Hydroxy 28.8 ng/mL
== END ==
PROVIDERS: PCP Family Medicine Geriatric Medicine; Visit Provider Family Medicine Geriatric Medicine
DX: E55.9 Vitamin D deficiency, unspecified (principal); I10 Essential (primary) hypertension
CPT/HCPCS: 36415; 80053; 82306; 84443; 85025

== ENCOUNTER 2021-05-03 15:54 | Outpatient (CLI) | payer OTHER, SELFPAY ==
[2021-05-03 17:27] LABS: Absolute Lymphocyte Count 1.87 X10^3/uL (0.83-4.51); Absolute Neutrophil Count 3.2 X10^3/uL (2.0-7.7); Basophil# 0.06 X10^3/uL; Eosinophil# 0.18 X10^3/uL; Eosinophils% 3.1 % (0-5); Hematocrit 41.1 % (37-47); Hemoglobin 13.6 g/dL (12.0-15.0); Lymphocyte # 1.87 X10^3/ul (0.83-4.51); Lymphocyte % 31.7 % (19-41); Mean Corp Hgb Conc 33.1 g/dL (32-36); Mean Corpuscular Hgb 27.5 pg (27.0-32.0); Mean Platelet Vol. 10.6 fl (6.2-12.0); Monocyte# 0.57 X10^3/uL; Monocyte% 9.7 % (0-10); NRBC Flagged by Analyzer 0 % (0-5); Neutrophil % 54.2 % (47-70); Platelet Count 263 K/mm3 (150-450); RBC Distribution Width SD 38.8 fl (35.1-43.9); Red Blood Count 4.95 M/mm3 (4.2-5.4); White Blood Count 5.9 K/mm3 (4.4-11.0)
[2021-05-03 18:13] LABS: ALB/GLOB Ratio 1.1 RATIO (0.9-2.4); AST(SGOT) 20 U/L (15-37); Alanine Aminotransfer ALT/SGPT 32 U/L (13-56); Albumin, Serum 3.7 g/dL (3.2-5.0); Alkaline Phosphatase 69 U/L (45-117); Anion Gap 6 (5-15); BUN 19 mg/dL (7-18); BUN/Creat Ratio 19.2 RATIO (10-20); Calcium,Total 8.9 mg/dL (8.5-10.1); Chloride 107 mmol/L (98-107); Creatinine, Serum 0.99 mg/dL (0.55-1.02); EST Glomerular Filtration Rate 61 mL/min (>60); Est Glom Filt Rate - Afr Amer 73 mL/min (>60); Globulin 3.5 g/dL (2.2-4.2); Glucose 92 mg/dL (74-106); Potassium 3.9 mmol/L (3.5-5.1); Protein, Total 7.2 g/dL (6.4-8.2); Sodium Level 140 mmol/L (136-145); Thyroid Stim Hormone (TSH) 1.62 uIU/mL (0.358-3.74)
== END 2021-05-03 23:59 | disposition short-term general hospital (02) ==
LOC: POLAB3 15:54
PROVIDERS: PCP Family Medicine Geriatric Medicine; Visit Provider Family Medicine Geriatric Medicine
DX: I10 Essential (primary) hypertension (principal)
CPT/HCPCS: 36415; 80053; 84443; 85025

== ENCOUNTER 2021-05-30 15:45 | Outpatient (CLI) | payer OTHER, SELFPAY ==
--- NOTE | 2021-05-30 15:47 | BI_ITS ---
MAMMOGRAPHY - BILATERAL SCREENING REASON FOR EXAM: Female, 61 years old. Routine annual screening examination. PERTINENT HISTORY: Non-contributory. TECHNIQUE: Digital bilateral breast machelle (3D mammographic acquisition) in the CC and MLO projections. 2-D mediolateral oblique (MLO) and craniocaudad (CC) views of both breasts were obtained. CAD: Full Field Digital Mammography with Computer Added Detection was performed. COMPARISON: Comparison is made with prior examination dated 04/13/2020 and 02/22/2019. FINDINGS: Breast Composition: The breasts are heterogeneously dense, which may obscure small masses. There are no dominant masses or suspicious calcifications. No other significant abnormalities are identified. There has been no significant change since the prior study. BI/SCRN MAMM (CAD)W/MACHELLE BILAT IMPRESSION: Stable bilateral screening mammogram. Yearly follow-up mammogram recommended. (A) ASSESSMENT CATEGORY: BIRADS Category 1: Negative. A letter regarding these results will be sent to the patient by the facility within 30 days. Approximately 10% of breast cancers are not detected by mammography. A normal mammogram should not delay biopsy of a clinically suspicious abnormality. [id number] Electronically Signed: Charli Ramirez MD at 8:56 EST ,
== END 2021-05-30 23:59 | disposition home or self-care (01) ==
LOC: OPBI 15:45
PROVIDERS: PCP Family Medicine Geriatric Medicine; Visit Provider Family Medicine Geriatric Medicine
DX: Z12.31 Encounter for screening mammogram for malignant neoplasm of breast (principal)
CPT/HCPCS: 77063; 77067

== ENCOUNTER → 2021-08-04 | Outpatient (CLI) | payer OTHER, SELFPAY ==
[2021-08-04 08:10] LABS: Thyroid Stim Hormone (TSH) 0.73 uIU/mL (0.358-3.74)
== END | disposition home or self-care (01) ==
PROVIDERS: PCP Family Medicine Geriatric Medicine
DX: C73 Malignant neoplasm of thyroid gland (principal)
CPT/HCPCS: 36415; 84443

== ENCOUNTER → 2021-11-21 | Outpatient (CLI) | payer OTHER, SELFPAY ==
[2021-11-21 17:21] LABS: Absolute Lymphocyte Count 2.44 X10^3/uL (0.83-4.51); Absolute Neutrophil Count 3.3 X10^3/uL (2.0-7.7); Basophil# 0.05 X10^3/uL; Basophil% 0.8 % (0-1); Eosinophil# 0.18 X10^3/uL; Eosinophils% 2.7 % (0-5); Hemoglobin 12.8 g/dL (12.0-15.0); Lymphocyte # 2.44 X10^3/ul (0.83-4.51); Lymphocyte % 37.1 % (19-41); Mean Corpuscular Hgb 27.2 pg (27.0-32.0); Mean Corpuscular Volume 85.1 fL (81-99); Mean Platelet Vol. 11.2 fl (6.2-12.0); Monocyte% 9.1 % (0-10); NRBC Flagged by Analyzer 0 % (0-5); Neutrophil # 3.28 X10^3/uL (2.7-7.7); Platelet Count 242 K/mm3 (150-450); RBC Distribution Width CV 12.6 % (11.6-14.6); RBC Distribution Width SD 38.8 fl (35.1-43.9); White Blood Count 6.6 K/mm3 (4.4-11.0)
[2021-11-21 18:04] LABS: ALB/GLOB Ratio 1.1 RATIO (0.9-2.4); AST(SGOT) 13 U/L (15-37); Alanine Aminotransfer ALT/SGPT 28 U/L (13-56); Albumin, Serum 3.7 g/dL (3.2-5.0); Alkaline Phosphatase 59 U/L (45-117); Anion Gap 5 (5-15); BUN 26 mg/dL (7-18); BUN/Creat Ratio 27.1 RATIO (10-20); Calcium,Total 8.8 mg/dL (8.5-10.1); Chloride 105 mmol/L (98-107); Creatinine, Serum 0.96 mg/dL (0.55-1.02); EST Glomerular Filtration Rate 63 mL/min (>60); Est Glom Filt Rate - Afr Amer 76 mL/min (>60); Globulin 3.5 g/dL (2.2-4.2); Glucose 87 mg/dL (74-106); Protein, Total 7.2 g/dL (6.4-8.2); Sodium Level 139 mmol/L (136-145); Thyroid Stim Hormone (TSH) 0.74 uIU/mL (0.358-3.74)
== END | disposition home or self-care (01) ==
LOC: POLAB3 15:53
PROVIDERS: PCP Family Medicine Geriatric Medicine; Visit Provider Family Medicine Geriatric Medicine
DX: I10 Essential (primary) hypertension (principal)
CPT/HCPCS: 36415; 80053; 84443; 85025

== ENCOUNTER 2022-01-29 07:43 | Emergency (ER) | payer OTHER, SELFPAY ==
[2022-01-29 07:44] VITALS: BP 161/87; PULSE 70; RESP 17; TEMP 36.6; O2SAT 99; BMI 38.3
--- NOTE | 2022-01-29 07:52 | CT_ITS ---
STUDY: CT ABDOMEN AND PELVIS WITHOUT CONTRAST REASON FOR EXAM: Female, 61 years old. Kidney Stone- RIGHT FLANK PAIN RADIATION DOSAGE (If Supplied By Facility): CTDIvol = ( 19.12 ) mGy, DLP = ( 974.54 ) mGycm TECHNIQUE: Transaxial images were obtained from the dome of the diaphragm to the symphysis pubis without oral contrast, and without intravenous contrast. Sagittal and coronal images were reconstructed. Individualized dose optimization techniques were used for this CT. COMPARISON: None. FINDINGS: Minimal degree of increased markings at the lung bases suggestive of mild degree of bibasilar atelectasis and/or scarring. Coronary artery calcification. Normal liver. Normal gallbladder and extrahepatic biliary system. Normal spleen. Normal pancreas. Normal bilateral adrenal glands. There is a 3 mm calculus in the upper pole of the right kidney. There is a 2.5 mm calculus in the distal portion of the left ureter. Normal left kidney. There is a small hiatal hernia. Normal small intestine. Normal colon. The appendix is visualized and appears normal. There is scattered atherosclerotic calcification of the abdominal aorta, without a demonstrated aneurysm. Normal inferior vena cava. Normal retroperitoneum. Normal urinary bladder. There is absence of the uterus consistent with a prior hysterectomy. There is a small umbilical hernia containing fat. Normal osseous structures. CT/Abdomen/Pelvis without Cont IMPRESSION: 2.5 mm calculus in the distal portion of the right ureter without significant hydronephrosis or hydroureter ureter. Nonobstructing calculus in the right kidney. Electronically Signed: Charli Ramirez MD at 8:37 EDT ,
--- NOTE | 2022-01-29 07:53 | EX.ED.DYSGE1 ---
HPI History of Present Illness Chief Complaint: Flank Pain Detail of Chief Complaint: Right flank pain Informant: patient Onset/Context/Timing Onset: Today Context: Gradual Onset Current Severity: Moderate Maximum Severity: Severe Narrative Narrative: Patient presents secondary to right flank pain that started at 5:45 this morning. She states she was already up and getting ready for work when the pain started. She did have nausea and vomiting secondary to pain. She denies any recent injury. No history of kidney stones. [facility] Medical History [place] COVID-19 virus detected (01/2020) Daytime somnolence Endometrial hyperplasia without atypia, simple Essential hypertension Hypothyroidism Obesity Peripheral neuropathy Postmenopausal bleeding Premature ventricular contractions Home Medications meloxicam 15 mg tablet 15 mg PO DAILY 03/11/18 [History Last Taken Unknown] omeprazole 20 mg capsule,delayed release 20 mg PO DAILY 03/11/18 [History Last Taken 06/04/18 03:30 20 MG] valsartan 320 mg-hydrochlorothiazide 12.5 mg tablet 1 ea PO DAILY 03/11/18 [History Last Taken Unknown] levothyroxine 125 mcg tablet 150 mcg PO DAILY 10/22/19 [History Last Taken Unknown] potassium chloride 10 mEq tablet,extended release 10 meq PO DAILY #90 tabs 06/05/20 [Rx Last Taken Unknown] calcium carbonate 600 mg calcium (1,500 mg) tablet (Calcium) 600 mg PO DAILY 02/01/21 [History Last Taken Unknown] omega-3 fatty acids 1,000 mg capsule (Fish Oil Concentrate) 1,000 mg PO DAILY 02/01/21 [History Last Taken Unknown] metoprolol tartrate 25 mg tablet 25 mg PO BID #180 tabs 04/05/21 [Rx Last Taken Unknown] hydrocodone-acetaminophen 5-325mg 5mg-325mg 1 tab PO Q6H PRN pain 3 days #10 tabs 01/29/22 [Rx Last Taken Unknown] ibuprofen 600 mg tablet 600 mg PO Q6H PRN PRN pain #20 tabs 01/29/22 [Rx Last Taken Unknown] ondansetron 4 mg disintegrating tablet 4 mg PO Q8H PRN nausea and vomiting #10 tabs 01/29/22 [Rx Last Taken Unknown] tamsulosin 0.4 mg capsule (Flomax) 0.4 mg PO DAILY #7 caps 01/29/22 [Rx Last Taken Unknown] Allergy/AdvReac Type Severity Reaction Status Date / Time latex Allergy Itching Verified 01/29/22 07:44 Family History Unknown No problems noted. Surgical History History of cervical polypectomy History of laparoscopic-assisted vaginal hysterectomy (06/04/18) History of removal of neck cyst History of thyroid surgery [place] teeth extracted Social History Smoking Status: Never smoker alcohol intake: never substance use type: does not use caffeine: No ROS ROS ED Constitutional Constitutional ED: Denies chills or fever(s) Eyes Eyes: Denies change in vision or discharge from eye(s) ENT ENT ED: Denies discharge from eye(s), rhinorrhea or sore throat Cardiovascular Cardiovascular: Denies chest pain or palpitations Respiratory/Chest Respiratory/Chest: Denies cough or dyspnea Gastrointestinal Gastrointestinal: Reports abdominal pain, nausea and vomiting; Denies diarrhea Genitourinary Genitourinary ED: Denies difficulty urinating or dysuria Musculoskeletal Musculoskeletal: Reports back pain; Denies extremity pain Integumentary Denies Abrasions or rash Neurologic Neurologic: Denies headache(s) or weakness Allergic/Immunologic Allergic/Immunologic ED: Denies lip swelling or urticaria EXAM Physical Exam Const Vital Signs: 01/29/22 07:44 01/29/22 09:42 Temperature 97.8 F Temperature Source Temporal Pulse Rate 70 76 Respiratory Rate 17 14 Blood Pressure 161/87 H 156/89 H Blood Pressure Mean 111 111 Pulse Ox 99 98 Oxygen Delivery Method Room Air Room Air Positive well nourished and well developed General Appearance ED: well developed HEENT Reports normocephalic and head/scalp atraumatic Eyes PERRL and EOMs intact bilaterally Neck supple Chest Wall inspection of chest normal and palpation of chest normal Resp normal respiratory effort and clear to auscultation bilaterally Cardio regular rate and regular rhythm GI non-tender Auscultation: hypoactive bowel sounds Palpation: soft Back/Spine General Back: CVA tenderness right Extremity normal to inspection Neuro oriented x3 and no sensory deficits noted Sensorium / Orientation: alert Motor Exam: strength 5/5 throughout Psych mental status grossly normal Skin no rashes or lesions noted MDM MDM MDM Narrative Medical decision making narrative: Patient was given morphine, Zofran, Toradol, IV fluids. Lab work obtained along with urinalysis. CT flank ordered. Lab Data Attestation: I reviewed the patient's lab results. Labs: Laboratory Results - last 24 hr 01/29/22 01/29/22 01/29/22 07:55 07:55 08:35 WBC 6.0 RBC 4.84 Hgb 13.3 Hct 39.9 MCV 82.4 MCH 27.5 MCHC 33.3 RDW Std Deviation 38.3 RDW Coeff of Neena 12.8 Plt Count 231 MPV 10.2 Immature Gran % (Auto) 0.300 Neut % (Auto) 63.8 Lymph % (Auto) 26.3 [place] % (Auto) 7.2 Eos % (Auto) 1.7 Baso % (Auto) 0.7 Absolute Neuts (auto) 3.8 Absolute Lymphs (auto) 1.57 Nucleated RBC % 0 Sodium 140 Potassium 3.6 Chloride 108 H Carbon Dioxide 26.0 Anion Gap 6 BUN 24 H Creatinine 0.92 Estim Creat Clear Calc 55.45 Est GFR (MDRD) Af Amer 79 Est GFR (MDRD) Non-Af 66 BUN/Creatinine Ratio 26.0 H Glucose 153 H Calcium 9.2 Urine Color Yellow Urine Clarity Sl. Cloudy Urine pH 5.0 Ur Specific [place] 1.025 Urine Protein 15 H Urine Glucose (UA) Normal Urine Ketones 5 H Urine Occult Blood 25 H Urine Nitrite Negative Urine Bilirubin Negative Urine Urobilinogen Normal Ur Leukocyte Esterase 25 H Urine RBC 0-5 SEEN Urine WBC 0-5 SEEN Ur Squamous Epith Cells 0-5 SEEN Amorphous Sediment 1+ Urine Bacteria 1+ Urine Mucus 0 SEEN Radiography Diagnostic Testing: Clinical Impression(s) from Imaging Studies Abdomen/Pelvis CT 01/29/22 07:52 IMPRESSION: 2.5 mm calculus in the distal portion of the right ureter without significant hydronephrosis or hydroureter ureter. Nonobstructing calculus in the right kidney. Electronically Signed: Charli Ramirez MD at 8:37 EDT , Treatment and Re-Evaluation Narrative: Labs are unremarkable with normal renal function. Urinalysis reveals no acute infection. CT flank reveals a 2.5 mm calculus in the distal right ureter. There is a nonobstructing calculus in the right kidney as well. Repeat evaluation patient states her pain is starting to increase again. She is given a small dose of Dilaudid. On final reeval she is improved. Test results are discussed with patient and at bedside. She will be treated with ibuprofen, [place], Zofran, Flomax. She is referred to urology for follow-up as needed. Discharge Plan Triage Chief Complaint: Flank Pain ED Provider: Keli Arauz Dx/Rx/DC Orders Clinical Impression: Ureterolithiasis Instructions: ED Kidney Stone w/ Colic Prescriptions: New ibuprofen 600 mg tablet 600 mg PO Q6H PRN PRN (Reason: pain) Qty: 20 0RF hydrocodone-acetaminophen 5-325 mg tablet 1 tab PO Q6H PRN (Reason: pain) 3 Days Qty: 10 0RF tamsulosin [Flomax] 0.4 mg capsule 0.4 mg PO DAILY Qty: 7 0RF ondansetron 4 mg tablet,disintegrating 4 mg PO Q8H PRN (Reason: nausea and vomiting) Qty: 10 0RF No Action levothyroxine 125 mcg tablet 150 mcg PO DAILY omega-3 fatty acids [Fish Oil Concentrate] 1,000 mg capsule 1,000 mg PO DAILY calcium carbonate [Calcium 600] 600 mg calcium (1,500 mg) tablet 600 mg PO DAILY meloxicam 15 MG tablet 15 mg PO DAILY omeprazole 20 MG capsule,delayed release(DR/EC) 20 mg PO DAILY valsartan-hydrochlorothiazide 1 EACH tablet 1 ea PO DAILY potassium chloride 10 mEq tablet extended release 10 meq PO DAILY Qty: 90 3RF metoprolol tartrate 25 mg tablet 25 mg PO BID Qty: 180 3RF Primary Care Provider: Win Matos Chi Referrals: Larry Layne MD [Med Staff - Active Staff] - As Needed Win Matos Chi, MD [Primary Care Provider] - Disposition Disposition: Home, Self Care
[2022-01-29 08:00] LABS: Absolute Lymphocyte Count 1.57 X10^3/uL (0.83-4.51); Absolute Neutrophil Count 3.8 X10^3/uL (2.0-7.7); Basophil# 0.04 X10^3/uL; Basophil% 0.7 % (0-1); Eosinophils% 1.7 % (0-5); Hematocrit 39.9 % (37-47); Hemoglobin 13.3 g/dL (12.0-15.0); Lymphocyte # 1.57 X10^3/ul (0.83-4.51); Lymphocyte % 26.3 % (19-41); Mean Corp Hgb Conc 33.3 g/dL (32-36); Mean Corpuscular Hgb 27.5 pg (27.0-32.0); Mean Corpuscular Volume 82.4 fL (81-99); Mean Platelet Vol. 10.2 fl (6.2-12.0); Monocyte# 0.43 X10^3/uL; Monocyte% 7.2 % (0-10); NRBC Flagged by Analyzer 0 % (0-5); Neutrophil # 3.82 X10^3/uL (2.7-7.7); Neutrophil % 63.8 % (47-70); Platelet Count 231 K/mm3 (150-450); RBC Distribution Width CV 12.8 % (11.6-14.6); RBC Distribution Width SD 38.3 fl (35.1-43.9); Red Blood Count 4.84 M/mm3 (4.2-5.4)
[2022-01-29] MEDS: 0.9% Normal Saline 1,000 ML 250 ML IV (08:02)
[2022-01-29] MEDS: Morphine 4 MG/ML Syringe IV (08:02)
[2022-01-29] MEDS: Ketorolac 30 MG/ML Syringe IV (08:02)
[2022-01-29] MEDS: Ondansetron 4 MG/2 ML Vial IV (08:02)
[2022-01-29 08:12] LABS: Anion Gap 6 (5-15); BUN 24 mg/dL (7-18); Calcium,Total 9.2 mg/dL (8.5-10.1); Chloride 108 mmol/L (98-107); Creatinine, Serum 0.92 mg/dL (0.55-1.02); EST Glomerular Filtration Rate 66 mL/min (>60); Est Glom Filt Rate - Afr Amer 79 mL/min (>60); Estimated Creatinine Clearance 55.45 ml/min; Glucose 153 mg/dL (74-106); Potassium 3.6 mmol/L (3.5-5.1); Sodium Level 140 mmol/L (136-145)
[2022-01-29 08:43] LABS: Mucous, Urine 0 SEEN /hpf (<or=2+)
[2022-01-29 08:45] LABS: Color, Urine Yellow (Yellow); Glucose, Dipstick Normal (Normal); Ketone-Dipstick 5 mg/dl (Negative); Leukocyte Esterase-Dipstick 25 /ul (Negative); Nitrite-Dipstick Negative (Negative); Occult Blood-Urine 25 /ul (Negative); Protein-Dipstick 15 mg/dl (Negative); Specific Gravity, Urine 1.025 (1.002-1.030); Urine Bilirubin Dipstick Negative (Negative); Urine Clarity Sl. Cloudy (Clear); Urine Urobilinogen Normal (Normal)
[2022-01-29 08:56] LABS: Bacteria 1+ /hpf (None Seen); Red Blood Cells-Urine 0-5 SEEN /hpf (0-5); Squamous Epithelial Cells - UA 0-5 SEEN /hpf (5-10); White Blood Cells 0-5 SEEN /hpf (0-5)
[2022-01-29 08:57] LABS: Amorphous Sediment 1+
[2022-01-29] MEDS: HYDROmorphone 0.5 MG/0.5 ML SYRINGE IV (09:41)
[2022-01-29 09:42] VITALS: BP 156/89; PULSE 76; RESP 14; O2SAT 98
[2022-01-29 10:50] VITALS: BP 127/66; PULSE 71; RESP 15; O2SAT 98
== END 2022-01-29 10:52 | disposition home or self-care (01) ==
PROVIDERS: Emergency Provider Emergency Medicine; PCP Family Medicine Geriatric Medicine; Visit Provider Emergency Medicine
DX: N20.2 Calculus of kidney with calculus of ureter (principal); I10 Essential (primary) hypertension; R11.2 Nausea with vomiting, unspecified
CPT/HCPCS: 74176; 80048; 81001; 85025; 96361; 96374; 96375; 99283; J7030; A4216; J2405

== ENCOUNTER → 2022-05-14 | Outpatient (CLI) | payer OTHER, SELFPAY ==
--- NOTE | 2022-05-14 09:27 | BI_ITS ---
MAMMOGRAPHY - BILATERAL DIAGNOSTIC REASON FOR EXAM: Female, 62 years old. One month history of right upper lateral breast. History of right breast lipoma. PERTINENT HISTORY: Non-contributory. TECHNIQUE: Digital bilateral breast jose ramon (3D mammographic acquisition) in the CC and MLO projections. 2-D mediolateral oblique (MLO) and craniocaudad (CC) views of both breasts were obtained. CAD: Full Field Digital Mammography with Computer Added Detection was performed. COMPARISON: Comparison is made with prior study dated 05/30/2021 and 04/13/2020. FINDINGS: Breast Composition: The breasts are heterogeneously dense, which may obscure small masses. There are no dominant masses or suspicious calcifications. No other significant abnormalities are identified. There has been no significant change since the prior study. BI/DIAG MAMM W/CAD, BILAT IMPRESSION: Stable bilateral diagnostic mammogram. One year follow-up recommended. (A) ASSESSMENT CATEGORY: BIRADS Category 1: Negative. A letter regarding these results will be sent to the patient by the facility within 30 days. Approximately 10% of breast cancers are not detected by mammography. A normal mammogram should not delay biopsy of a clinically suspicious abnormality. Electronically Signed: Charli Ramirez MD at 11:07 EST ,
--- NOTE | 2022-05-14 09:27 | US_ITS ---
STUDY: ULTRASOUND BREAST - RIGHT REASON FOR EXAM: Female, 62 years old. Pain in the right breast. TECHNIQUE: Axial and longitudinal images of the RIGHT breast were performed with a high resolution ultrasound transducer. # OF IMAGES: 45 COMPARISON: Comparison is made with prior mammogram done earlier today as well as prior sonogram of the right breast dated 04/05/2015. FINDINGS: RIGHT Breast: The upper-outer quadrant of the right breast was examined with ultrasound. Incidental note is made of a 1.3 cm x 2.1 cm x 1.3 cm lymph node with a fatty hilum. This is suggestive of benign finding. There is evidence of a 1.8 cm x 0.7 cm x 1 cm fat-containing nodule just deep to the skin surface at the C7 o''clock position of the breast at 7 cm from the nipple. This most likely represents a lipoma. This has increased slightly in size as compared to prior study. US/Breast Limited Unilateral IMPRESSION: Slight increase in size of the previously seen lipoma at the 7 o''clock position of the breast as described. Small benign appearing right axillary lymph node. ASSESSMENT CATEGORY: BIRADS Category 2: Benign. A letter regarding these results will be sent to the patient by the facility within 30 days. Electronically Signed: Charli Ramirez MD at 9:07 EST ,
== END | disposition home or self-care (01) ==
LOC: OPBI 09:22
PROVIDERS: PCP Family Medicine Geriatric Medicine; Referring Provider Family Medicine Geriatric Medicine; Visit Provider Family Medicine Geriatric Medicine
DX: N64.4 Mastodynia (principal)
CPT/HCPCS: 76642; 77062; 77066; G0279

== ENCOUNTER → 2022-07-10 | Outpatient (CLI) | payer OTHER, SELFPAY ==
[2022-07-10 17:26] LABS: Absolute Lymphocyte Count 2.28 X10^3/uL (0.83-4.51); Basophil# 0.04 X10^3/uL; Basophil% 0.6 % (0-1); Eosinophil# 0.15 X10^3/uL; Eosinophils% 2.1 % (0-5); Hemoglobin 13.2 g/dL (12.0-15.0); Lymphocyte # 2.28 X10^3/ul (0.83-4.51); Lymphocyte % 32.2 % (19-41); Mean Corp Hgb Conc 32.2 g/dL (32-36); Mean Corpuscular Hgb 27.6 pg (27.0-32.0); Mean Corpuscular Volume 85.6 fL (81-99); Mean Platelet Vol. 10.6 fl (6.2-12.0); Monocyte# 0.61 X10^3/uL; Monocyte% 8.6 % (0-10); NRBC Flagged by Analyzer 0 % (0-5); Neutrophil % 56.4 % (47-70); Platelet Count 224 K/mm3 (150-450); RBC Distribution Width CV 12.9 % (11.6-14.6); RBC Distribution Width SD 39.8 fl (35.1-43.9); Red Blood Count 4.79 M/mm3 (4.2-5.4); White Blood Count 7.1 K/mm3 (4.4-11.0)
[2022-07-10 17:53] LABS: ALB/GLOB Ratio 1.2 RATIO (0.9-2.4); AST(SGOT) 14 U/L (15-37); Alanine Aminotransfer ALT/SGPT 24 U/L (13-56); Albumin, Serum 3.7 g/dL (3.2-5.0); Alkaline Phosphatase 63 U/L (45-117); Anion Gap 6 (5-15); BUN 26 mg/dL (7-18); BUN/Creat Ratio 29.9 RATIO (10-20); Calcium,Total 8.9 mg/dL (8.5-10.1); Chloride 105 mmol/L (98-107); Creatinine, Serum 0.87 mg/dL (0.55-1.02); EST Glomerular Filtration Rate 70 mL/min (>60); Est Glom Filt Rate - Afr Amer 85 mL/min (>60); Globulin 3.1 g/dL (2.2-4.2); Glucose 101 mg/dL (74-106); Potassium 3.7 mmol/L (3.5-5.1); Protein, Total 6.8 g/dL (6.4-8.2); Sodium Level 138 mmol/L (136-145); T4 Free Direct 1.11 ng/dL (0.76-1.46); Thyroid Stim Hormone (TSH) 1.38 uIU/mL (0.358-3.74)
[2022-07-12 20:52] LABS: Anti-Thyroglobulin AB < 1.0 IU/mL (0.0-0.9); Thyroglobulin, Serum Qt. 0.1 ng/mL (1.5-38.5)
== END | disposition home or self-care (01) ==
LOC: POLAB3 16:07
PROVIDERS: Internal Medicine Endocrinology, Diabetes & Metabolism; PCP Family Medicine Geriatric Medicine; Visit Provider Family Medicine Geriatric Medicine
DX: I10 Essential (primary) hypertension (principal); C73 Malignant neoplasm of thyroid gland; E89.0 Postprocedural hypothyroidism
CPT/HCPCS: 36415; 80053; 84432; 84439; 84443; 85025; 86800

== ENCOUNTER → 2022-09-25 | Outpatient (CLI) | payer OTHER, SELFPAY ==
[2022-09-29 13:06] LABS: HPV APTIMA, High Risk Negative (Negative)
== END | disposition home or self-care (01) ==
LOC: LABSPEC 16:18
PROVIDERS: PCP Family Medicine Geriatric Medicine; Visit Provider Student in an Organized Health Care Education/Training Program
DX: Z12.4 Encounter for screening for malignant neoplasm of cervix (principal)
CPT/HCPCS: 87624; 88175; G0145

== ENCOUNTER → 2022-12-30 | Outpatient (CLI) | payer OTHER, SELFPAY ==
[2022-12-30 17:49] LABS: Absolute Lymphocyte Count 2.15 X10^3/uL (0.83-4.51); Absolute Neutrophil Count 4.2 X10^3/uL (2.0-7.7); Basophil# 0.06 X10^3/uL; Basophil% 0.8 % (0-1); Eosinophil# 0.13 X10^3/uL; Eosinophils% 1.8 % (0-5); Hematocrit 41.4 % (37-47); Hemoglobin 13.4 g/dL (12.0-15.0); Lymphocyte # 2.15 X10^3/ul (0.83-4.51); Lymphocyte % 29.6 % (19-41); Mean Corp Hgb Conc 32.4 g/dL (32-36); Mean Corpuscular Hgb 28.3 pg (27.0-32.0); Mean Corpuscular Volume 87.3 fL (81-99); Mean Platelet Vol. 10.7 fl (6.2-12.0); Monocyte% 9.6 % (0-10); NRBC Flagged by Analyzer 0 % (0-5); Neutrophil # 4.21 X10^3/uL (2.7-7.7); Neutrophil % 57.9 % (47-70); Platelet Count 237 K/mm3 (150-450); RBC Distribution Width CV 12.5 % (11.6-14.6); RBC Distribution Width SD 39.9 fl (35.1-43.9); Red Blood Count 4.74 M/mm3 (4.2-5.4); White Blood Count 7.3 K/mm3 (4.4-11.0)
[2022-12-30 18:22] LABS: AST(SGOT) 15 U/L (15-37); Alanine Aminotransfer ALT/SGPT 27 U/L (13-56); Albumin, Serum 3.7 g/dL (3.2-5.0); Alkaline Phosphatase 70 U/L (45-117); Anion Gap 4 (5-15); BUN 22 mg/dL (7-18); BUN/Creat Ratio 25.9 RATIO (10-20); Chloride 103 mmol/L (98-107); Creatinine, Serum 0.85 mg/dL (0.55-1.02); EST Glomerular Filtration Rate 72 mL/min (>60); Est Glom Filt Rate - Afr Amer 87 mL/min (>60); Globulin 3.7 g/dL (2.2-4.2); Glucose 86 mg/dL (74-106); Potassium 3.6 mmol/L (3.5-5.1); Protein, Total 7.4 g/dL (6.4-8.2); Sodium Level 138 mmol/L (136-145); Thyroid Stim Hormone (TSH) 0.64 uIU/mL (0.358-3.74)
== END | disposition home or self-care (01) ==
PROVIDERS: PCP Family Medicine Geriatric Medicine; Visit Provider Family Medicine Geriatric Medicine
DX: I10 Essential (primary) hypertension (principal)
CPT/HCPCS: 36415; 80053; 84443; 85025

== ENCOUNTER → 2023-03-17 | Outpatient (CLI) | payer OTHER, SELFPAY | END | disposition home or self-care (01) | LOC: PSN 06:59 | PROVIDERS: PCP Family Medicine Geriatric Medicine; Referring Provider Family Medicine Geriatric Medicine; Visit Provider Family Medicine Geriatric Medicine | DX: R68.83 Chills (without fever) (principal) | CPT/HCPCS: 87635; 87804; 87807; C9803 ==

== ENCOUNTER 2023-04-10 11:32 | Emergency (ER) | payer OTHER, SELFPAY ==
[2023-04-10 11:33] VITALS: BP 125/85; PULSE 83; RESP 16; TEMP 36.2; O2SAT 97; BMI 41.3
--- NOTE | 2023-04-10 14:06 | EDS_ITS ---
HPI History of Present Illness Chief Complaint: Back Informant: patient Narrative Narrative: Patient presents with back pain. Patient has been having back pain for 2 or 3 weeks. It had some radiation down the left leg earlier but that seems to be better. It does radiate to the buttock on occasion. No bowel or bladder dysfunction. No weakness. No she has chronic neuropathy for over 20 years but there is been no change in that. She is not diabetic. She has had no recent infections fevers chills or weight loss. No history of cancer. She is eating and drinking normally. She has tried [id number] meds and chiropractor without any notable change. She has no history of trauma or falls. [facility] Medical History [place] COVID-19 virus detected (01/2020) Daytime somnolence Endometrial hyperplasia without atypia, simple Essential hypertension Hypothyroidism Obesity Peripheral neuropathy Postmenopausal bleeding Postoperative primary hypothyroidism Premature ventricular contractions Thyroid cancer Home Medications meloxicam 15 mg tablet 15 mg PO DAILY 03/11/18 [History Last Taken Unknown] omeprazole 20 mg capsule,delayed release 20 mg PO DAILY 03/11/18 [History Last Taken 06/04/18 03:30 20 MG] valsartan 320 mg-hydrochlorothiazide 12.5 mg tablet 1 ea PO DAILY 03/11/18 [History Last Taken Unknown] potassium chloride 10 mEq tablet,extended release 10 meq PO DAILY #90 tabs 06/05/20 [Rx Last Taken Unknown] calcium carbonate 600 mg calcium (1,500 mg) tablet (Calcium) 600 mg PO DAILY 02/01/21 [History Last Taken Unknown] omega-3 fatty acids 1,000 mg capsule (Fish Oil Concentrate) 1,000 mg PO DAILY 02/01/21 [History Last Taken Unknown] metoprolol tartrate 25 mg tablet 25 mg PO BID #180 tabs 04/05/21 [Rx Last Taken Unknown] hydrocodone-acetaminophen 5-325mg 5mg-325mg 1 tab PO Q6H PRN pain 3 days #10 tabs 01/29/22 [Rx Last Taken Unknown] ibuprofen 600 mg tablet 600 mg PO Q6H PRN PRN pain #20 tabs 01/29/22 [Rx Last Taken Unknown] ondansetron 4 mg disintegrating tablet 4 mg PO Q8H PRN nausea and vomiting #10 tabs 01/29/22 [Rx Last Taken Unknown] tamsulosin 0.4 mg capsule (Flomax) 0.4 mg PO DAILY #7 caps 01/29/22 [Rx Last Taken Unknown] lactobacillus combination no.9 4 billion cell capsule (Adult 50 Plus Probiotic) 4,000 mmu cells PO DAILY 03/15/22 [History Last Taken Unknown] levothyroxine 125 mcg tablet 125 mcg PO DAILY #90 tabs 03/21/23 [Rx Last Taken Unknown] hydrocodone-acetaminophen 5-325mg 5mg-325mg 1 tab PO Q6H PRN PRN Pain 3 days #10 TABLETS 04/10/23 [Rx Last Taken Unknown] prednisone 20 mg tablet 60 mg (3 x 20 mg) PO DAILY #15 TABLETS 04/10/23 [Rx Last Taken Unknown] Allergy/AdvReac Type Severity Reaction Status Date / Time latex Allergy Itching Verified 04/10/23 11:33 Family History Unknown No problems noted. Surgical History H/O: hysterectomy History of cervical polypectomy History of laparoscopic-assisted vaginal hysterectomy (06/04/18) History of removal of neck cyst History of thyroid surgery [place] teeth extracted Social History adopted: Yes (does not know medical history) Smoking Status: Never smoker alcohol intake: never substance use type: does not use caffeine: No what type of physical activity do you participate in: other details: yard work ROS ROS ED ROS Narrative A complete review of systems was performed and is negative except as documented in the history of present illness. Some specific details below. Constitutional: No recent fevers or chills. No rigors. Patient has not generally felt ill. EYE: No discharge, visual complaints, or pain. ENT: No sinus pressure or pain. No nasal discharge. CV: No chest pain, pressure or aching. No palpitations or irregular beats. Patient has not been presyncopal or syncopal. Respiratory: No trouble breathing. No cough. No wheezing. No sputum production. No pain with breathing. GI: No abdominal pain. No nausea vomiting diarrhea. No blood in stool. No loss of bowel control. : No frequency dysuria or hematuria. No incontinence or urinary retention. Musculoskeletal: No recent trauma. No swelling. Please see history of present illness. Skin: No rash. No diaphoresis. No vesicles. Neuro: No new weakness or numbness but she has chronic neuropathy. No pain radiating down the legs now but it had been going down her left leg a week ago. It is now just to the buttock.. No weakness of ambulation. No sensory changes in the extremities. Please see history of present illness also. Endocrine: No polyuria or polydipsia. EXAM Physical Exam Narrative Exam Narrative: CONSTITUTIONAL: Patient is nontoxic in appearance. The patient looks comfortable. Work of breathing looks normal. She is laughing with her friend as I walk into the room. HEENT: No notable trauma. Mucous membranes moist. No sinus tenderness. No sign of dental infection. EYES: No conjunctival injection. No pallor. NECK: No meningismus. No JVD. CARDIOVASCULAR: Regular rate. Regular rhythm. No notable murmur. No JVD. RESPIRATORY: No respiratory distress. Breathing is unlabored. No wheezes. No pain with a deep breath. GASTROINTESTINAL: Obese but not distended. Bowel sounds are normal. No tenderness. No guarding. No rebound. No palpable mass. No bruit. GENITOURINARY: No tenderness over the bladder. No CVA tenderness. MUSCULOSKELETAL: Atraumatic. No peripheral edema. No cord. No tenderness along the deep venous system. No asymmetry. Distal pulses are intact. She does have some mild paraspinal tenderness at around L3 and down. More on the left than the right. She has some sciatic notch tenderness in the buttock more on the left. NEUROLOGICAL: Patient is alert and oriented. No focal deficit noted. Patient can stand on toes and heels and do squats. Patellar reflex 1?2+ bilaterally and equal Achilles reflex 1+ bilaterally and equal SKIN: No noted rashes. No diaphoresis. No vesicles noted. No notable pallor. PSYCHIATRIC: Patient is calm. Mood is appropriate. Const Vital Signs: 04/10/23 11:33 Temperature 97.2 F L Temperature Source Temporal Pulse Rate 83 Respiratory Rate 16 Blood Pressure 125/85 H Blood Pressure Mean 98 Pulse Ox 97 Oxygen Delivery Method Room Air MDM MDM MDM Narrative Medical decision making narrative: Patient has been trying [id number] nonsteroidals rest ice and chiropractor. I will give a short course of steroids. I will give her a few hydrocodone for pain. If she develops numbness tingling weakness bowel bladder dysfunction fever she needs to return. I do not think x-rays CT or blood work is needed at this time. There is no indication for this. She has no red flags of back pain. Follow-up as appropriate. Discharge Plan Triage Chief Complaint: Back ED Provider: George Myers Dx/Rx/DC Orders Clinical Impression: Left lumbosacral radiculopathy, Lower back pain Instructions: ED Back Pain (Acute or Chronic) Prescriptions: New hydrocodone-acetaminophen [hydrocodone-acetaminophen] 5-325 mg tablet 1 tab PO Q6H PRN PRN (Reason: Pain) 3 Days Qty: 10 0RF prednisone 20 mg tablet 60 mg PO DAILY Qty: 15 0RF No Action omega-3 fatty acids [Fish Oil Concentrate] 1,000 mg capsule 1,000 mg PO DAILY calcium carbonate [Calcium 600] 600 mg calcium (1,500 mg) tablet 600 mg PO DAILY Adult 50 Plus Probiotic 4 billion cell capsule 4,000 mmu cells PO DAILY Rx Instructions: administer with a meal levothyroxine 125 mcg tablet 125 mcg PO DAILY Qty: 90 3RF meloxicam 15 MG tablet 15 mg PO DAILY omeprazole 20 MG capsule,delayed release(DR/EC) 20 mg PO DAILY valsartan-hydrochlorothiazide 1 EACH tablet 1 ea PO DAILY ibuprofen 600 mg tablet 600 mg PO Q6H PRN PRN (Reason: pain) Qty: 20 0RF hydrocodone-acetaminophen 5-325 mg tablet 1 tab PO Q6H PRN (Reason: pain) 3 Days Qty: 10 0RF tamsulosin [Flomax] 0.4 mg capsule 0.4 mg PO DAILY Qty: 7 0RF ondansetron 4 mg tablet,disintegrating 4 mg PO Q8H PRN (Reason: nausea and vomiting) Qty: 10 0RF potassium chloride 10 mEq tablet extended release 10 meq PO DAILY Qty: 90 3RF metoprolol tartrate 25 mg tablet 25 mg PO BID Qty: 180 3RF Primary Care Provider: Win Matos Chi Referrals: Win Matos Chi, MD [Primary Care Provider] - 3-5 Days Disposition Disposition: Home, Self Care
== END 2023-04-10 14:28 | disposition home or self-care (01) ==
LOC: ED 14:24
PROVIDERS: Emergency Provider Emergency Medicine; PCP Family Medicine Geriatric Medicine; Visit Provider Emergency Medicine
DX: M54.17 Radiculopathy, lumbosacral region (principal); E66.9 Obesity, unspecified
CPT/HCPCS: 99282

== ENCOUNTER → 2023-04-26 | Outpatient (CLI) | payer OTHER, SELFPAY ==
--- NOTE | 2023-04-26 10:42 | MRI_ITS ---
STUDY: MRI LUMBAR SPINE WITHOUT CONTRAST REASON FOR EXAM: Female, 63 years old. Pain - NKI, LBP, radiates to bilateral hips down both posterior legs, stiffness both hips down to knees, no surgery- TECHNIQUE: Standardized fat and water weighted pulse sequences were obtained in the sagittal and axial planes. Noncontrast images obtained. Contrast: No contrast administered COMPARISON: Plain film examination of the lumbar spine dated 04/17/2023 FINDINGS: Vertebral bodies and alignment. 1. Vertebral body height and alignment are maintained. No evidence of marrow edema or occult fracture. 2. Paraspinous soft tissue planes have normal appearance. Normal appearance of the muscular fascial planes of the erector spinae. 3. Normal appearance of the sacrum and sacroiliac joints. Intervertebral disks levels. T12-L1: Normal endplates. Normal disc height, hydration and morphology. Normal bilateral facet joints. Normal central canal and bilateral lateral recesses. Normal bilateral intervertebral neural foramina. L1-2: No disc herniation or canal stenosis, moderate facet atrophic changes are present. No nerve root impingement. There is mild narrowing of neural foramina. L2-3: No disc herniation or canal stenosis, moderate facet hypertrophic changes. Mild deformity of the dorsal surface of the lateral recesses bilaterally, mild nerve root crowding however no nerve root impingement or compression. Mild narrowing of neural foramina without nerve root impingement. L3-4: Disc desiccation, broad-based posterior disc bulge with a mild foraminal component bilaterally. Facet and ligamentum flavum hypertrophic changes are present. No evidence of canal stenosis. There is however narrowing of neural foramina bilaterally with potential of early bilateral L3 nerve root impingement. L4-5: No evidence of disc herniation however there is an prominent 8.5 x 6.8 mm medially directed synovial cyst arising from the LEFT facet joint with associated compression of the LEFT lateral recess expected nerve root impingement noted. The central thecal sac is narrowed to approximately 6 mm. Mild narrowing of neural foramina without khai nerve root impingement within the neural foramina. L5-S1: Facet hypertrophic changes and mild facet arthropathy with fluid in the RIGHT facet joints. There is a broad-based posterior disc bulge, no canal stenosis. No evidence of foraminal stenosis or nerve root impingement. Spinal cord: Normal appearance of the spinal cord and conus. Conus is located at L1. Cauda equina has normal appearance. No evidence of cord compression or edema. No intramedullary signal abnormality noted. MRI/Spine Lumbar (Routine) IMPRESSION: 1. Prominent medially directed synovial cyst arising from the LEFT facet joint at L4-5 with significant compromise of the LEFT lateral recess and expected nerve root impingement. Stenosis of the thecal sac at this level also noted. 2. Multilevel facet hypertrophy and osteophyte formation. No evidence of khai disc herniation. No other areas canal stenosis. 3. Normal appearance of visualized spinal cord and conus. Electronically Signed: Óscar Staples MD at 21:14 EST ,
--- OUTSIDE RECORDS SUMMARY | 2023-04-26 10:42 | XMS RPT_ITS | CCD ---
Author Name Unknown Address [facility] [place] [address] Organization [facility] Care Team Providers Care Telescope Operator Name Role Phone JEFFREY, HALI-CHI Referring Unavailable JEFFREY, HALI-CHI Primary Care Unavailable HOWARD ESPARZA Attending Unavailable ANIL ORTEZ Attending Unavailable Results Test Name Value Interpretation Reference Range Facil ity Encounters Encounter Date Encounter Type Care Provider Facility Start: 04-21-2023 End: 04-21-2023 ambulatory ANIL ORTEZ Facility:[facility] Start: 12-21-2020 ambulatory RADHA MURPHY Facility:[facility] Payers Date Payer Category Payer Unknown [id number] 1960 Unknown [id number] Progress note 04-21-2023 Note Date & Type Note Facility 04-21-2023 Note HNO ID: [id number] Author: ANIL ORTEZ APRN.CNP Service: ? Author Type: Nurse Practitioner Type: Progress Notes Filed: 04/21/2023 16:57 Note Text: Elizabteh is a 63 year old who presents for an annual gynecologic exam without complaints. Postmenopausal: Yes, hysterectomy 2019 - menorrhagia and cancerous cells of cervix per patient HRT use: No. Last Pap: normal 2022 HPV: negative 2022 History of abnormal pap: Yes Last mammogram: 2022 [facility] History of abnormal mammogram: Yes Sexually active: Yes History of STDS: None Hot flashes: No Night sweats: No Vaginal dryness: Yes OB History T0 L0 SAB0 IAB0 Ectopic0 Multiple0 Live Births0 Mangle Tender History LMP: 07/03/2015, Hysterectomy Age at Menarche: Age at First : Age at Menopause: Mangle Tender History Comments: Sexual Activity: Yes; Male; hyst Contraception: Surgical PAST MEDICAL HISTORY Diagnosis Date Arthritis GERD (gastroesophageal reflux disease) Hypertension Hypothyroidism secondary to thyroidectomy, Surgical [employer] [facility] Dr. Esparza Neuropathy chronic, lower legs/feet, unsure of cause Snoring Thyroid cancer (HCC) unknown type PAST SURGICAL HISTORY Procedure Laterality Date NM THERAPEUTIC IODINE 131_*FL thyroid cancer related THYROIDECTOMY TOTAL/COMPLETE TOTAL ABDOM HYSTERECTOMY 2019 ovries remain FAMILY HISTORY Adopted: Yes SOCIAL HISTORY Social History Tobacco Use Smoking status: Never Smokeless tobacco: Never Vaping Use Vaping Use: Never used Substance Use Topics Alcohol use: No Drug use: No REVIEW OF SYSTEMS Abdomen: No abdominal pain, nausea, vomiting, diarrhea, or constipation. No bloating, early satiety, indigestion, or increased flatulence. Bladder: No dysuria, gross hematuria, urinary frequency, urinary urgency, or incontinence Breast: No breast lumps, nipple d/c, overlying skin changes, redness or skin retraction Allergies and current medication updated:Yes EXAM: BP 132/84 Ht 5' 4 (1.63m) Wt 248 lb (112.5kg) LMP 07/03/2015 BMI 42.55 kg/(m2). GENERAL: pleasant, female in no apparent distress HEENT: Normocephalic, atraumatic, mucus membranes moist, and no lesions NECK: Supple, full range of motion, no adenopathy, and thyroid normal DERMATOLOGY: Normal, without lesions, non-icteric, and non-hirsute BREAST: soft, non-tender, symmetric, no dominant mass, normal nipple-areolar complex, no lymphadenopathy, and no nipple discharge CHEST: Normal inspiratory effort ABDOMEN: soft, non-tender, and no masses PELVIC: external genitalia normal, normal Bartholin's glands, urethra, Concordia's glands, no vulvar lesions, good vaginal support, physiologic discharge present, + white thin appearance of skin to vulva and tyra anal region BIMANUAL: uterus surgically absent adnexal masses, and non-tender RECTOVAGINAL: deferred. NEURO: alert and oriented x3,exam grossly non-focal EXTREMITIES: normal ASSESSMENT/PLAN: 1) Health maintenance: Pap done with HPV. Patient reports hyster for menorrhagia and cancer cells of cervix. Discussed ASCCP guidelines of annual HPV based tests before termite treater helper surveillance for AMARJIT 2 or AMARJIT 3. Unknown details of past pap smears so pap of vaginal cuff was done. Mammogram ordered at [facility], hx of lipoma that is followed by [facility] Self breast awareness encouraged. Nutrition, exercise and routine health maintenance exams reviewed. Calcium/Vitamin D supplementation information provided. Colon cancer screening: up to date with screening States ortho is managing bone mineral density Seeing pain management TSH/lipids/glucose: followed by PCP 2) Follow up one year or sooner as needed Vaginal dryness - ICD9: 625.8, ICD10: N89.8 - Using vaginal estrogen cream - Does not need refill at this time Lichen sclerosus et atrophicus - ICD9: 701.0, ICD10: L90.0 - Lichen appearance to vulva and perianal region - Patient previously told she has Lichen - Has clobetasol rx - Reviewed slight increased risk for SCC - Recommend yearly annuals - Discussed autoimmune in nature, may experience flares - Directions for clobetasol use given, not intended for termite treater helper use Anil Ortez APRN.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 This clinical summary was aggregated from multiple sources. Caution should be exercised in using it in the provision of clinical care. This summary normalizes information from multiple sources, and as a consequence, information in this document may materially change the coding, format and clinical context of patient data. In addition, data may be omitted in some cases. CLINICAL DECISIONS SHOULD BE BASED ON THE PRIMARY CLINICAL RECORDS. [employer] provides no warranty or guarantee of the accuracy or completeness of information in this document.
== END | disposition home or self-care (01) ==
LOC: MRI 10:34
PROVIDERS: PCP Family Medicine Geriatric Medicine; Referring Provider Orthopaedic Surgery Orthopaedic Surgery of the Spine; Visit Provider Orthopaedic Surgery Orthopaedic Surgery of the Spine
DX: M54.17 Radiculopathy, lumbosacral region (principal)
CPT/HCPCS: 72148

== ENCOUNTER → 2023-05-15 | Outpatient (CLI) | payer OTHER, SELFPAY ==
--- NOTE | 2023-05-15 15:50 | BI_ITS ---
MAMMOGRAPHY - BILATERAL SCREENING REASON FOR EXAM: Female, 63 years old. Routine annual screening examination. PERTINENT HISTORY: Non-contributory. TECHNIQUE: Digital bilateral breast machelle (3D mammographic acquisition) in the CC and MLO projections. 2-D mediolateral oblique (MLO) and craniocaudad (CC) views of both breasts were obtained. CAD: Full Field Digital Mammography with Computer Added Detection was performed. COMPARISON: Comparison is made with prior study dated May 30, 2021 and May 14, 2022. FINDINGS: Breast Composition: The breasts are heterogeneously dense, which may obscure small masses. There are no dominant masses or suspicious calcifications. Stable small benign-appearing bilateral axillary lymph nodes. No other significant abnormalities are identified. There has been no significant change since the prior study. BI/SCRN MAMM (CAD)W/MACHELLE BILAT IMPRESSION: Stable bilateral screening mammogram. Yearly follow-up mammogram recommended. (A) ASSESSMENT CATEGORY: BIRADS Category 2: Benign. A letter regarding these results will be sent to the patient by the facility within 30 days. Approximately 10% of breast cancers are not detected by mammography. A normal mammogram should not delay biopsy of a clinically suspicious abnormality. [id number] Electronically Signed: Charli Ramirez MD at 8:37 EST ,
== END | disposition home or self-care (01) ==
LOC: OPBI 15:49
PROVIDERS: PCP Family Medicine Geriatric Medicine; Referring Provider Nurse Practitioner Women's Health; Visit Provider Nurse Practitioner Women's Health
DX: Z12.31 Encounter for screening mammogram for malignant neoplasm of breast (principal)
CPT/HCPCS: 77063; 77067

== ENCOUNTER 2023-05-23 16:00 | Outpatient (RCR) | payer OTHER, SELFPAY ==
--- NOTE | 2023-05-12 17:01 | HP.PTEVAL ---
Patient's Visit Information Visit Information Visit Information: ELIZABETH MACKENZIE is a 63 year old F referred to Physical Therapy by Dr. Ritesh Aguilar MD with a diagnosis of LUMBAR RADICULOPATHY. Date of Evaluation: 05/12/23 Physical Therapist: Star Polanco, PT, Cert MDT, OCS Visit Plan Frequency: 2x /Week Duration: 4 Weeks Plan: PT INTERVENTIONS DLS ,POSTURAL EX'S , LE FLEXABILITY ,ACTIVITY MODIFICATION AND MODALTIES NEEDED Subjective Subjective: This 63 y/o female presents to physical therapy with lumbar radiculopathy. Patient has had lumbar pain many years with generalized ache but since in noticed increase pain in bilateral legs. Initially ,seen Family DR tried prednisone helped temporarily . Patient seen DR Aguilar had MRI showed Prominent medially directed synovial cyst arising from the LEFT facet joint at L4-5 with significant compromise of the LEFT lateral recess and expected nerve root impingement. Stenosis of the thecal sac at this level and facet joint hypertrophy. Also had x-rays.-. Recommended pain management epidural injection last Tues which helped pain. Today located LS and but no legs symptoms. Aggravating standing worse ,walking ,bending lifting . Alleviating factors rest. C/O paresthesia/tingling in feet from neuropathy. Coughing/sneezing positive. Bowel/bladder -. Sleeping good. Patient pain affects ADLS and housework tasks. Patient pain affects QOL and function. Patient goals to decrease pain. 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 Pain Bilateral Back: Pain Intensity (Out of 10): 1 Pain Intensity Range: 10 Objective Objective: POSTURE: mild forward posture knee varum increase lordosis GAIT: reciprocal pattern lateral sway antalgic gait NEURO: c/o paresthesia in feet ,reflexes L3-4,L4-5,L5-S1 1/3 PALAPTION: unremarkable MMT: quads/hams 4/5 ,hip flexion 4-/5 ankle 4/5 FLEXABLITY: hamstrings min tight LUMBAR ROM: flexion WFL ,extension min loss ,side glides min loss Special Tests L/S Slump test left side: Negative L/S Slump test right side: Negative L/S Left Straight Leg Raise: Negative L/S Right Straight Leg Raise: Negative Lumbar Standing: Flexion - Mechanical Response: No effect Lumbar Standing: Flexion - Symptoms During Testing: No effect Lumbar Standing: Flexion - Symptoms After Testing: No effect Lumbar Standing: Extension - Mechanical Response: No effect Lumbar Standing: Extension - Symptoms During Testing: No effect Lumbar Standing: Extension - Symptoms After Testing: No effect Lumbar Standing: Right Side Glides - Mechanical Response: No effect Lumbar Standing: Right Side [place] - Symptoms During Testing: No effect Lumbar Standing: Right Side [place] - Symptoms After Testing: No effect Lumbar Standing: Left Side [place] - Mechanical Response: No effect Lumbar Standing: Left Side [place] - Symptoms During Testing: No effect Lumbar Standing: Left Side [place] - Symptoms After Testing: No effect Balance/Special Test Scores Oswestry Low Back Score: 19 Goals Goal 1:: Patient to be I with HEP for lumbar Goal Time Frame: 4-6 Weeks Goal 2:: Patient improve posture/body mechanics for ADL Goal Time Frame: 4-6 Weeks Goal 3:: Patient to improve lumbar ROM for function of recovery for ADLS Goal Time Frame: 4-6 Weeks Goal 4:: Patient to demonstrate 40-50% improvement with function and ADLS Goal Time Frame: 4-6 Weeks Goal 5:: Patient to improve back oswestry score by 5 points or > to improve QOL Goal Time Frame: 4-6 Weeks Rehabilitation Potential Physical Therapy Diagnosis: This patient has stenosis from cyst causing lumbar radicular symptoms in legs with pain positioning ,motion testing initially worse worse with standing walking thus benefit from skilled PT Rehabilitation Potential: Good Anticipated Interventions Patient/Client Instruction: Educate patient on: Condition and Plan of Care For the Purpose of:: To decrease pain, To increase ROM, To improve muscle performance and motor function, To improve ability to perform ADL's, To increase tolerance to activity/condition/position, To improve performance and independence with ADL's, To improve ability of physical actions for home/community/work/leisure, To improve gait and locomotor functions, To increase flexibility/ROM and To improve tolerance to ADL's Therapeutic Exercise to Include: Strength training, Body mechanics, Postural training, Flexibilty training, Active ROM and Dynamic Lumbar Stabilization For the Purpose of:: To decrease pain, To increase ROM, To improve muscle performance and motor function, To improve ability to perform ADL's, To increase tolerance to activity/condition/position, To improve performance and independence with ADL's, To improve ability of physical actions for home/community/work/leisure, To increase flexibility/ROM, To reduce risk of recurrence and To improve tolerance to ADL's TENS: Yes IF ES: Yes Cryotherapy (ice pack, ice massage): Yes Thermo therapy (hot pack): Yes Ultrasound (thermal/non thermal): Yes For the Purpose of:: To decrease pain, To increase ROM, To improve nutrient delivery to tissue, To increase oxygenation perfusion, To improve health of tissue and To decrease soft tissue restriction Text: Thank you for the opportunity to evaluate your patient. For Medicare and Medicare HMO plans, please review the plan of care and approve it. It will need to be FAXED BACK to us at [phone] for Medicare purposes. For Medicare only, by signing this I certify the plan of care. Please let me know if there are questions or concerns regarding this plan of care. Physician Signature: Date:
--- NOTE | 2023-07-21 11:23 | HP.PTDCNRP_ITS ---
Patient Information Patient Information: ELIZABETH MACKENZIE was seen in my office for initial evaluation on 05/12/23. The following Plan of Care was established for this patient: POC Established Initial Frequency: 2x /Week Initial Duration: 4 Weeks Anticipated Interventions Patient/Client Instruction: Educate patient on: Condition and Plan of Care For the Purpose of:: To decrease pain, To increase ROM, To improve muscle performance and motor function, To improve ability to perform ADL's, To increase tolerance to activity/condition/position, To improve performance and indepe ndence with ADL's, To improve ability of physical actions for home/community/work/leisure, To improve gait and locomotor functions, To increase flexibility/ROM and To improve tolerance to ADL's Therapeutic Exercise to Include: Strength training, Body mechanics, Postural training, Flexibilty training, Active ROM and Dynamic Lumbar Stabilization For the Purpose of:: To decrease pain, To increase ROM, To improve muscle performance and motor function, To improve ability to perform ADL's, To increase tolerance to activity/condition/position, To improve performance and independence with ADL's, To improve ability of physical actions for home/community/work/leisure, To increase flexibility/ROM, To reduce risk of recurrence and To improve tolerance to ADL's TENS: Yes IF ES: Yes Cryotherapy (ice pack, ice massage): Yes Thermo therapy (hot pack): Yes Ultrasound (thermal/non thermal): Yes For the Purpose of:: To decrease pain, To increase ROM, To improve nutrient delivery to tissue, To increase oxygenation perfusion, To improve health of tissue and To decrease soft tissue restriction Last Seen Last Seen: This patient was last seen in our office . Pertinent comments regarding their Physical therapy will appear below: Patient seen for PT for lumbar radiculopathy had MRI see for results and f/b lumbar surgery At this point I will be discontinuing this patient from physical therapy. I would be happy to see this patient again in the future if found appropriate by the physician. Thank you! Star Polanco, PT, Cert MDT, OCS Balance/Gait/Functional tests Balance/Special Test Scores Oswestry Low Back Score: 19
== END 2023-05-23 19:00 | disposition home or self-care (01) ==
LOC: PT 16:00
PROVIDERS: PCP Family Medicine Geriatric Medicine; Visit Provider Orthopaedic Surgery Orthopaedic Surgery of the Spine
DX: M54.16 Radiculopathy, lumbar region (principal)
CPT/HCPCS: 97110; 97162

== ENCOUNTER 2023-07-14 13:37 | Observation (INO) | payer OTHER, SELFPAY ==
[2023-06-25 16:26] LABS: Absolute Lymphocyte Count 2.08 X10^3/uL (0.83-4.51); Basophil# 0.06 X10^3/uL; Basophil% 0.6 % (0-1); Eosinophil# 0.12 X10^3/uL; Eosinophils% 1.2 % (0-5); Hematocrit 38.4 % (37-47); Hemoglobin 12.2 g/dL (12.0-15.0); Lymphocyte # 2.08 X10^3/ul (0.83-4.51); Lymphocyte % 20.5 % (19-41); Mean Corp Hgb Conc 31.8 g/dL (32-36); Mean Corpuscular Hgb 27.5 pg (27.0-32.0); Mean Corpuscular Volume 86.7 fL (81-99); Mean Platelet Vol. 9.7 fl (6.2-12.0); Monocyte% 7.9 % (0-10); NRBC Flagged by Analyzer 0 % (0-5); Neutrophil # 7.01 X10^3/uL (2.7-7.7); Neutrophil % 69.2 % (47-70); Platelet Count 259 K/mm3 (150-450); RBC Distribution Width CV 13.2 % (11.6-14.6); RBC Distribution Width SD 41.7 fl (35.1-43.9); Red Blood Count 4.43 M/mm3 (4.2-5.4); White Blood Count 10.1 K/mm3 (4.4-11.0)
[2023-06-25 16:36] LABS: Prothrombin Time (Protime)PT. 12.7 SECONDS (11.7-14.9)
[2023-06-25 16:37] LABS: Partial Thromboplast Time 24.5 Seconds (24.1-36.2)
[2023-06-25 16:53] LABS: Anion Gap 7 (5-15); BUN 30 mg/dL (7-18); Calcium,Total 8.8 mg/dL (8.5-10.1); Chloride 106 mmol/L (98-107); EST Glomerular Filtration Rate 48 mL/min (>60); Est Glom Filt Rate - Afr Amer 58 mL/min (>60); Glucose 99 mg/dL (74-106); Potassium 3.8 mmol/L (3.5-5.1); Sodium Level 140 mmol/L (136-145)
[2023-06-25 17:06] LABS: AST(SGOT) 13 U/L (15-37); Alanine Aminotransfer ALT/SGPT 21 U/L (13-56); Albumin, Serum 3.4 g/dL (3.2-5.0); Alkaline Phosphatase 63 U/L (45-117); Bilirubin, Direct 0.11 mg/dL (0.00-0.30); Globulin 3.4 g/dL (2.2-4.2); Magnesium 2.4 mg/dL (1.6-2.6); Protein, Total 6.8 g/dL (6.4-8.2); Thyroid Stim Hormone (TSH) 0.98 uIU/mL (0.358-3.74)
[2023-06-25 17:23] LABS: HIV - WCH Non-Reactive (Nonreactive)
[2023-06-26 09:32] LABS: Hepatitis B Surface Antibody Non-Reactive; Hepatitis C Antibody Non-Reactive (Nonreactive)
[2023-06-27 05:07] LABS: Hepatitis A AB, Total Negative (Negative)
--- NOTE | 2023-07-10 10:51 | PCM.HP.BLA ---
History and Physical MR#: [id number] Acct: [id number] Name: ELIZABETH MACKENZIE Rep #: [id number] : 1960 Provider: Dr. Stiven Gunn DO Age/Sex: 63/F [place] [facility] Status: Signed Intake Vital Signs 04/17/2407:01 :12 Height 5 ft 4 in 5 ft 4 in Weight: 242 lb 4 oz BMI 41.5 Intake Visit Reasons: LUMBAR SPINE Accompanied by: Self Is patient in pain?: Yes (2) Allergies latex Allergy (Verified 06/05/23 15:10) Itching Medications meloxicam 15 mg tablet 15 mg PO DAILY 03/11/18 [History Confirmed 06/05/23] omeprazole 20 mg capsule,delayed release 20 mg PO DAILY 03/11/18 [History Confirmed 06/05/23] valsartan 320 mg-hydrochlorothiazide 12.5 mg tablet 1 ea PO DAILY 03/11/18 [History Confirmed 06/05/23] omega-3 fatty acids 1,000 mg capsule (Fish Oil Concentrate) 1,000 mg PO DAILY 02/01/21 [History Confirmed 06/05/23] metoprolol tartrate 25 mg tablet 25 mg PO BID #180 tabs 04/05/21 [Rx Confirmed 06/05/23] levothyroxine 125 mcg tablet 125 mcg PO DAILY #90 tabs 03/21/23 [Rx Confirmed 06/05/23] prednisone 20 mg tablet 60 mg (3 x 20 mg) PO DAILY #15 TABLETS 04/10/23 [Rx Confirmed 06/05/23] [facility] Medical History (Updated 06/05/23 @ 16:[address] Stiven Gunn DO) [place] COVID-19 virus detected (01/2020) Daytime somnolence Endometrial hyperplasia without atypia, simple Essential hypertension Hypothyroidism Obesity Peripheral neuropathy Postmenopausal bleeding Postoperative primary hypothyroidism Premature ventricular contractions Thyroid cancer Surgical History H/O: hysterectomy History of cervical polypectomy History of laparoscopic-assisted vaginal hysterectomy (06/04/18) History of removal of neck cyst History of thyroid surgery [place] teeth extracted Family History Unknown No problems noted. Social History adopted: Yes (does not know medical history) Smoking Status: Never smoker alcohol intake: never substance use type: does not use caffeine: No what type of physical activity do you participate in: other details: yard work HPI LUMBAR SPINE Details: This documentation accurately reflects the service provided and the decisions made by me, Dr. Stiven Gunn, DO 06/05/23 1500. Part of today?s visit was documented by Sushma BOYLE, acting as scribe. ELIZABETH MACKENZIE is a 63 year old F here today for a Second Opinion discussion to talk about her Synovial cyst of lumbar facet joint. Patient doesn't want the rods, and screws in her back. She would just like hercyst popped if that is a possibility. Patient states no changes since she was last here. Elizabeth is most pleasant lady 63 years old who has a chief complaint of pain in her left buttocks and down her left thigh that sometimes goes below her knee and what seems to be an L5 dermatome. This was insidious in onset and she felt it first in February or March. By the time she saw Dr. Aguilar, my associate the pain was worse than it has been ever since. She does not have a lot of low back pain at all again is mostly in the left buttocks and down the left thigh and leg it does go a little bit to the right buttocks and thigh but not too badly. 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 This does exacerbate the pain. On examination she has some pain with extension and some with flexion but more so with extension of her lumbar spine. It does radiate the pain into the left buttocks and thigh. She has good motor strength of all the major muscle groups of both lower extremities. She has 2+ patella and 2+ Achilles reflexes bilaterally. She has no long tract signs. Clonus is absent and Babinski's are downgoing. She can stand her toes and she can stand on her heels. I reviewed the MRI scan and plain x-rays. The MRI scan demonstrates that she has significant facet arthritis at L4-5 particularly on the left side. She also has a rather lateral large facet cyst coming into the canal and displacing the cauda equina towards the right. This may account for some mild right-sided symptoms. Of course it does account for all her left-sided symptoms. I explained to her that the reason Dr. Aguilar recommended the 360 degree fusion is because that way he can take out the entire facet that would include the cyst. I explained to her that the other way of doing this would be simply to do a laminectomy and remove the cyst cauterized the facet and do a medial facetectomy. This would be reasonable also. She opted for the latter. I discussed the case with Dr. Aguilar. He understood my rationale. As I explained to the patient both surgeries are reasonable she just did not want the larger fusion. Dr. Aguilar asked me to do the surgery which will be a decompression with a medial facetectomy. He would like to scrub the case with me so that he can see how I do this particular surgery. I will see her again at preop. Coding Level of Care Code Off vis,est,level 3 Diagnoses Synovial cyst of lumbar facet joint M71.38 Lumbar radiculopathy M54.16
[2023-07-14] VITALS (15 sets, daily range): BP systolic 107–145; BP diastolic 61–90; PULSE 56–89; RESP 16–18; TEMP 36.2–36.8; O2SAT 96–100; BMI 40.8
[2023-07-14] MEDS: Lactated Ringers 1,000 ML 15 ML IV ×2 (09:55→14:22)
[2023-07-14] MEDS: Magnesium 1 GM over 15 mins IV (09:56)
[2023-07-14] MEDS: Acetaminophen 500 MG Tablet 1000 MG PO ×3 (09:56→21:32)
[2023-07-14 10:35] LABS: Bedside Glucose 101 mg/dL (74-106)
--- NOTE | 2023-07-14 11:15 | CYST_PTH ---
PATIENT: ELIZABETH MACKENZIE LOC: [facility] U#:[id number] AGE/SX: 63/F ROOM: MS319 RE07/14/[address]: Dr. Shereen Camp DO : 1960 BED: 1 DIS: 07/15/2023 SPEC #: [id number] RECD: 07/14/23 14:20 STATUS: ERVIN REQ #: [id number] JACKELINE: 07/14/23 11:[address]: Stiven Gunn DEPT: SURGICAL PATHOLOGY RECD BY: Ann Marie Elena ENTERED: 07/15/23 12:13 SP TYPE: Cyst OTHR DR: MD Dr. Monty Gray, MD Dr. Leidy Pineda Dr., MD Dr. Achintya Singh, MD Dr. Autumn L White, MD Dr. Mary Catherine Sementi, DO Dr. Jose Alberto Muhammad, DO MD Del Diaz MD Dr. Eric Jopperi, DO MD Dr. Abisai Mariano MD Dr. James Mooney, MD Dr. Kathryn Lee, DO Dr. Stiven Gunn, DO Dr. Jamil Perkins, DO MD Dr. Louis Couch MD Dr. Prakash Chand, MD Dr. Paul Nielsen, MD Dr. Paige Pierce, MD Dr. Ryan Burkholder, MD Dr. Tai Chi Kwok, MD Jessica Franklin, SHWETA Kendall Tissues: CYST Procedures: Surgery Specimen Level III Comments: @ Ordering doctor for SUIII edited from to @ by RENARD at 07/16/23 0904 @ Submitting doctor edited from to @ by ISABELLE at 07/16/23903 HEADER OPERATION: Lumbar laminectomy L4-5 left with removal of cyst PRE-OP DIAGNOSIS: Synovial cyst of lumbar facet joint, Lumbar radiculopathy TISSUE SUBMITTED: Facet cyst MICROSCOPIC DIAGNOSIS Facet cyst, excision: Fragments of benign adipose tissue, fibroconnective tissue, and skeletal muscle tissue, clinically facet cyst. See comment. Yana 07/16/23 COMMENT No obvious cyst lining is noted. Correlation with clinical findings and appropriate follow up are necessary. MICROSCOPIC DESCRIPTION Slides are reviewed. GROSS DESCRIPTION Received in fixative is one container labeled with the patient's name and designated Facet cyst. The specimen consists of are three variable size pieces of congested soft tissue measuring in aggregate 2.0 x 1.5 x 0.3cm. The entire specimen is submitted in one cassette. Yana 07/15/23 TC:5 CPT:07365
[2023-07-14] MEDS: Cefazolin 2 GM in 0.9% Normal Saline (100mL Bag) 100 ML IV (11:38)
--- NOTE | 2023-07-14 12:04 | RAD_ITS ---
STUDY: X-RAY - LUMBAR SPINE REASON FOR EXAM: Female, 63 years old. LAMINECTOMY TECHNIQUE: 1 view(s) of the lumbar spine were obtained. COMPARISON: Comparison is made with prior study dated April 17, 2023. FINDINGS: The localization instrument is seen posterior to the L3-L4 disc space level. RAD/Spine 1 View Any Level IMPRESSION: The localization instrument is seen posterior to the L3-L4 disc space level. Electronically Signed: Charli Ramirez MD at 12:48 EDT ,
[2023-07-14] MEDS: THROMBIN (RECOMBINANT) 20,000 UNIT VIAL 20000 UNIT TOPICAL (12:22)
--- NOTE | 2023-07-14 13:42 | PCM.OPRPT ---
Report of Operation Description of Surgical Findings:: Preoperative diagnosis: Lumbar facet cyst, left L4-5 Postoperative diagnosis: Same Procedure: Lumbar laminectomy medial facetectomy L4-5 on the left with removal of facet cyst CPT code 08364 Surgeon: Dr. Gunn Production Support Consultant: Dr. Aguilar Anesthesia: General endotracheal by [facility] EBL: Less than 30 cc Drains: None Complications: None Procedure: Patient was taken to the OR where she was placed under general endotracheal anesthesia a Lane catheter was inserted. Neuromonitoring placed her leads on the patient. We then rolled her onto the prone position on the Migel frame. After appropriate positioning with care to protect her bony prominences ulnar nerves of both elbows her brachial plexus and her breasts the back was prepped and draped standard fashion. I made a small longitudinal incision centered centered over what we thought would be L4 5 subcutaneous tissues were opened the length of the incision. I opened the lumbar fascia to the left of the spinous processes and elevated paravertebral muscles far enough to put a marker in place. X-ray was taken we found that it was at L3-4 not L4-5. We simply moved down 1 level. This was also marked. I did extend the incision of course as the first 1 was very small. Ala-Tet elevated paravertebral muscles off the lamina of L4 and the top of the lamina of L5. A Jordana retractor was then put in place I then released the ligamentum flavum off the underside of the lamina of L4 on the left side I thinned the lamina down with double-action rongeurs. Then began the hemilaminotomy on the left side. Identified the pars psoas and go to far lateral and weaken the pars. I then performed medial facetectomy of the low L4 facet. This was done with an osteotome. I then release ligamentum flavum off the superior facet of L5. I then did a medial facetectomy with 45 degree Kerrison rongeurs. This gave us a lot of space. I then split the ligamentum flavum and cut it in the midline with a Olu underneath it. Then began removal of the ligamentum flavum with 45 degree Kerrison rongeurs. We then able to identify the large cyst. Once the entire ligamentum flavum was removed Genfiber the dura I pulled the dura away from the cyst and began removing the cyst with 45 degree Kerrison rongeurs until it was all removed. I used bipolar cautery to cauterize several blood vessels in the area and any germinal cells that may be left so as to not repeat the cyst. Note that thorough irrigation was carried out many times in the course of the case. Once done the [place] could easily through the foramen both anterior and posterior to the nerve root with no pressure whatsoever. I packed the epidural space repeatedly with thrombin-soaked Gelfoam until we had excellent hemostasis. An amniotic membrane was placed over to prevent adhesions to develop later. Gelfoam was placed over the top of that. No drain was needed as the hemostasis was excellent. I then closed the lumbar fascia using [id number] suture with #1 Vicryl for closure of subcutaneous tissues with that 0 Vicryl and 2-0 Vicryl in layers in interrupted fashion and the skin was approximated using skin clips. Sterile dressings were then applied. The patient was then recovered in the OR she was moved to her hospital bed and taken to recovery in satisfactory condition. This is the end of operative summary on Ginette Prabhakar. This is Dr. Gunn dictating.
[2023-07-14] MEDS: Lactated Ringers 1,000 ML 100 ML IV (16:10)
[2023-07-14] MEDS: Ensure Surgery 237 ML LIQUID PO (16:15)
--- NOTE | 2023-07-14 17:05 | PCM.PN.HOSP ---
Subjective Subjective 63-year-old female presents to the hospital for an elective laminectomy and medial facetectomy L4-5 on the left with removal of facet cyst. She denies any changes to her medications recently and is doing well postoperatively. She still sleepy from anesthesia Objective Data Objective Data Vital Signs: Vital Signs Temp Pulse Resp BP Pulse Ox O2 Del Method O2 Flow Rate 97.2 F L 61 18 134/90 H 98 Nasal Cannula 4 07/14/23 15:51 07/14/23 15:51 07/14/23 15:51 07/14/23 15:51 07/14/23 15:51 07/14/23 16:05 07/14/23 16:05 Oxygen Flow Rate (L/min) 4 Oxygen Delivery Method Nasal Cannula Weight: 238 lb 1.588 oz Body Mass Index (BMI) 40.8 Intake & Output: Intake and Output for Last 24 Hours 07/13/23 07/14/23 07/15/23 03:59 03:59 03:59 Intake Total 1239 / 1239 Output Total 100 / 100 Balance 1139 / 1139 Lab / Micro Data 06/25/23 15:59 06/25/23 15:59 Labs: Laboratory Results - last 24 hr 07/14/23 09:27: POC Glucose 101 Micro: Microbiology 06/25/23 15:59 Swab (Method) Nasal Screen MRSA/MSSA - Final Radiography Diagnostic Testing: Radiology Impression Spine X-Ray 07/14/23 12:04 IMPRESSION: The localization instrument is seen posterior to the L3-L4 disc space level. Electronically Signed: Charli Ramirez MD at 12:48 EDT , Physical Exam Narrative General: Alert but sleepy, Oriented x3, Cooperative, No apparent distress HEENT: Atraumatic, PERRLA, EOMI, Normocephalic Oral: Dry mucosa Neck: Supple, No JVD Lungs: Diminished, Normal air movement, No rhonchi, No wheeze, No rales Cardiovascular: Regular rate, Regular Rhythm, Normal S1, Normal S2, No murmurs Abdomen: Soft, Non Tender, Non-Distended, No Hepato-splenomegaly Extremities: No edema, Capillary Refill Less than 3 Seconds Skin: Dressing CDI Musculoskeletal: No Tenderness to Palpation of Joints or Extremities Neurological: No focal neurological deficits, Motor Exam 5/5 strength throughout, Sensory exam intact to light touch and pain Psych/Mental Status: Normal Affect, Appropriate Assessment & Plan Assessment/Plan (1) Status post laminectomy: PLAN: Plan 1. Status post lumbar laminectomy with medial facetectomy on L4-5 on the left with removal of facet cyst on 07/14/2023 ? Pain management per primary ? PT/OT ? Discharge planning per primary 2. Essential HTN/HLD ? Blood pressure stable ? Can resume her home medications ? We will monitor make adjustments as necessary 3. Hypothyroidism ? Stabilized ? Continue with Synthroid 4. GERD ? Stable ? Continue with PPI DVT: Per primary Charges/Coding Visit Charges Office Visits / Consults: 10140 OV L3 New 30min
[2023-07-14] MEDS: oxyCODONE 5 MG Tablet PO ×2 (17:24→21:32)
[2023-07-14] MEDS: DiphenhydrAMINE 25 MG Capsule PO (17:24)
[2023-07-14] MEDS: Cefazolin 1 GM/50 ML BAG IV (19:55)
[2023-07-14] MEDS: Metoprolol Tartrate 25 MG Tablet PO (21:35)
[2023-07-15 00:16] VITALS: BP 115/68; PULSE 70; RESP 16; TEMP 36.9; O2SAT 97
[2023-07-15] MEDS: oxyCODONE 5 MG Tablet PO ×3 (02:23→11:39)
[2023-07-15] MEDS: Cefazolin 1 GM/50 ML BAG IV (03:21)
[2023-07-15 03:57] VITALS: BP 109/71; PULSE 73; RESP 16; TEMP 36.8; O2SAT 96
[2023-07-15] MEDS: Acetaminophen 500 MG Tablet 1000 MG PO ×2 (06:16→14:22)
[2023-07-15] MEDS: Levothyroxine 125 MCG Tablet PO (06:16)
[2023-07-15 07:10] VITALS: O2SAT 94
[2023-07-15 07:15] LABS: Absolute Lymphocyte Count 1.26 X10^3/uL (0.83-4.51); Absolute Neutrophil Count 6.4 X10^3/uL (2.0-7.7); Basophil# 0.02 X10^3/uL; Basophil% 0.2 % (0-1); Eosinophil# 0.08 X10^3/uL; Eosinophils% 0.9 % (0-5); Hematocrit 34.4 % (37-47); Hemoglobin 11.2 g/dL (12.0-15.0); Lymphocyte # 1.26 X10^3/ul (0.83-4.51); Lymphocyte % 14.5 % (19-41); Mean Corp Hgb Conc 32.6 g/dL (32-36); Mean Corpuscular Hgb 28.6 pg (27.0-32.0); Mean Corpuscular Volume 87.8 fL (81-99); Mean Platelet Vol. 9.1 fl (6.2-12.0); Monocyte# 0.85 X10^3/uL; Monocyte% 9.8 % (0-10); NRBC Flagged by Analyzer 0 % (0-5); Neutrophil # 6.42 X10^3/uL (2.7-7.7); Neutrophil % 74.3 % (47-70); Platelet Count 207 K/mm3 (150-450); RBC Distribution Width CV 13.1 % (11.6-14.6); Red Blood Count 3.92 M/mm3 (4.2-5.4); White Blood Count 8.7 K/mm3 (4.4-11.0)
[2023-07-15 07:45] VITALS: PULSE 78
[2023-07-15] MEDS: Metoprolol Tartrate 25 MG Tablet PO (07:45)
[2023-07-15] MEDS: Ensure Surgery 237 ML LIQUID PO ×2 (07:45→11:35)
[2023-07-15] MEDS: Pantoprazole Sodium 20 MG Tablet PO (07:46)
[2023-07-15] MEDS: Potassium Chloride Oral Tablet 10 MEQ PO (07:46)
[2023-07-15 08:00] VITALS: BP 127/76; PULSE 78; RESP 15; TEMP 36.7; O2SAT 94
--- NOTE | 2023-07-15 09:35 | CASEMGMT ---
ELIANE LEGER Assessment: Face to Face with pt for initial transition planning/care coordination assessment. ELIANE LEGER introduced self and role at [facility], pt voices understanding and consents to assessment. Pt is A&O x4 and answers all questions appropriately at this time. Pt sitting up in chair in no distress with at bedside. Care providers, pharmacy, and demographics verified/updated. Admitting Dx: lumbar laminectomy L4-5 PCP:Carlo Specialists:jackie Gunn; shantanu Leblanc Preferred Pharmacy: [facility] Insurance: [employer] Prescription Benefit: yes LNOK: Raymond Prabhakar, Living Arrangements: Pt lives with in a single story home with no steps to enter. Pt reports she is typically I in ADL's and denies concerns at home. Transportation: Pt drives self and denies concerns with transportation. Pt will transport pt until she is able to again. DME:[facility] HHC/SNF: Pt denies hx of Pt states no concerns with going home at time of dc. Pt has been up today and ambulating on own. Denies need for walker. Pt states no further concerns/needs. CM to follow. Advised pt to ask CM if any further question/concerns/needs arise, voices understanding. Pt Goal: Home Plan: Home Tiffanie DEL RIO CM
--- NOTE | 2023-07-15 11:36 | NURSING ---
scanner in room stopped working
[2023-07-15] MEDS: Senna/Docusate Sodium 1 Tablet 2 TABLET PO (12:12)
--- NOTE | 2023-07-15 13:20 | DCINST_ITS ---
Discharge Instructions Activity May shower in (days): 5 May resume sexual activity in: 4-6 weeks Lifting Restrictions: 15# Dressing / Incision Remove Dressing in: 4 days Follow Up Care Test Results: Test results from this visit will be discussed in further detail at your follow- up appointment, if applicable. Discharge Plan Admission Admit Date/Time: 07/14/23 13:37 Primary Reason for Your Visit: back surgery Attending Provider: Shereen Camp Primary Care Provider: Win Matos Chi Consulting Providers: Barbara Vernon; Monty Hernández; Leidy Salazar; Leidy Glover; Scarlet Skinner; America Thrasher; Bijal Robles; Jose Alberto Muhammad; Jose Alberto Parks; Del Vallejo; Tony Chino; Joe Jacobson; Abisai Chiu; Star Nazario; Shereen Camp; Jamil Perkins; Malina Pelletier; Louis Gilbert; Flo Perez; Lebron Malcolm; Amaya Dawn; Viet Heredia; Sonya Lombardo NP; Neo Villeda; Stiven Gunn Discharge Orders/Prescriptions Prescriptions: No Action levothyroxine 125 mcg tablet 125 mcg PO DAILY Qty: 90 3RF potassium chloride 10 mEq capsule, extended release 10 meq PO DAILY Patient Comments: take 1 capsule by mouth once daily omeprazole 20 MG capsule,delayed release(DR/EC) 20 mg PO DAILY valsartan-hydrochlorothiazide 1 EACH tablet 1 ea PO DAILY Alive Women's Ultra Potency 18 mg-800 mcg DFE-150 mcg tablet 1 tab PO DAILY omega 0-iqb-fdl-fish oil [Fish Oil] 300-1,000 mg capsule 1 cap PO DAILY melatonin 5 mg capsule 5 mg PO QHS PRN (Reason: sleep) Patient Comments: patient unsure of dose for this metoprolol tartrate 25 mg tablet 25 mg PO BID Qty: 180 3RF Other Ambulatory Orders: Hepatitis A AB, Total (Routine) Timeframe: 20230626 Facility: [facility] - Location: Laboratory Ordered By: Dr. Stiven Gunn Referrals / Follow Up: Win Matos Chi, MD [Primary Care Provider] - Disposition Disposition (needs filled in before D/C Order can be placed): Home, Self Care
[2023-07-15 13:24] LABS: Anion Gap 5 (5-15); BUN 13 mg/dL (7-18); BUN/Creat Ratio 15.3 RATIO (10-20); Calcium,Total 8.8 mg/dL (8.5-10.1); Chloride 106 mmol/L (98-107); Creatinine, Serum 0.85 mg/dL (0.55-1.02); EST Glomerular Filtration Rate 72 mL/min (>60); Est Glom Filt Rate - Afr Amer 87 mL/min (>60); Glucose 97 mg/dL (74-106); Potassium 3.7 mmol/L (3.5-5.1); Sodium Level 139 mmol/L (136-145)
--- NOTE | 2023-07-15 13:41 | DS.PCM_ITS ---
Providers Date of Admission: 07/14/23 Primary Care Physician: Dr. Win Matos MD Attending Physician: This is discharge summary on Ginette Prabhakar. This patient was admitted yesterday 13 July. She underwent lumbar laminectomy with removal of cyst. She tolerated the procedure quite well. Today she reports that her leg pain is gone. She is very pleased. I gave her an shock her directions as to the care of the wound, when she can shower etc. She already has an appointment to see me in the office. We will send her home with some pain pills. I will see her again at the office. Consultations 07/14/23 15:48 Consult: Hospitalist Routine Consulting Provider: [facility] Reason for Consult: Medical Management EMERGENT Consult: No MD Notified: Yes Date Notified: 07/14/23 Time Notified: 13:39 Method of Notification: Text Reason For Visit: ERAS Lumbar laminectomy L4-5 left w Diagnosis Discharge Diagnosis (1) Status post laminectomy: Status: Acute Code(s): Z98.890 - Other specified postprocedural states Medications at Discharge Home Medications omeprazole 20 mg capsule,delayed release 20 mg PO DAILY 03/11/18 valsartan 320 mg-hydrochlorothiazide 12.5 mg tablet 1 ea PO DAILY 03/11/18 metoprolol tartrate 25 mg tablet 25 mg PO BID #180 tabs 04/05/21 levothyroxine 125 mcg tablet 125 mcg PO DAILY #90 tabs 03/21/23 potassium chloride 10 mEq capsule,extended release 10 meq PO DAILY 06/13/23 okxvhlch-yhr-ygwk 18 mg-mfolate 800 mcg DFE-vit K 150 mcg-herb tablet (Alive Women's Ultra Potency) 1 tab PO DAILY 06/24/23 melatonin 5 mg capsule 5 mg PO QHS PRN sleep 07/14/23 omega 8-cnv-nfv-fish oil 300 mg-1,000 mg capsule (Fish Oil) 1 cap PO DAILY 07/14/23 Weight / BMI Weight Weight: 238 lb 1.588 oz Body Mass Index (BMI) 40.8 ABG / Lab / Microbiology Data 07/15/23 06:57 07/15/23 06:57 Laboratory: Laboratory Results - last 24 hr 07/15/23 06:57: WBC 8.7, RBC 3.92 L, Hgb 11.2 L, Hct 34.4 L, MCV 87.8, MCH 28.6, MCHC 32.6, RDW Std Deviation 42.0, RDW Coeff of Neena 13.1, Plt Count 207, MPV 9.1, Immature Gran % (Auto) 0.300, Neut % (Auto) 74.3 H, Lymph % (Auto) 14.5 L, [place] % (Auto) 9.8, Eos % (Auto) 0.9, Baso % (Auto) 0.2, Absolute Neuts (auto) 6.4, Absolute Lymphs (auto) 1.26, Nucleated RBC % 0, Sodium 139, Potassium 3.7, Chloride 106, Carbon Dioxide 28.0, Anion Gap 5, BUN 13, Creatinine 0.85, Estim Creat Clear Calc 81.30, Est GFR (MDRD) Af Amer 87, Est GFR (MDRD) Non-Af 72, BUN/Creatinine Ratio 15.3, Glucose 97, Calcium 8.8 Microbiology: Microbiology 06/25/23 15:59 Swab (Method) Nasal Screen MRSA/MSSA - Final D/C Instructions May shower in (days): 5 May resume sexual activity in: 4-6 weeks Meaningful Use Info Meaningful Use Diagnoses (Choose all that apply): None applicable Discharge Plan Admission Admit Date/Time: 07/14/23 13:37 Primary Reason for Your Visit: back surgery Attending Provider: Shereen Camp Primary Care Provider: Win Matos Chi Consulting Providers: Barbara Vernon; Monty Hernández; Leidy Salazar; Leidy Glover; Scarlet Skinner; America Thrasher; Bijal Robles; Jose Alberto Muhammad; Jose Alberto Parks; Del Vallejo; Tony Chino; Joe Jacobson; Abisai Chiu; Star Nazario; Shereen Camp; Jamil Perkins; Malina Pelletier; Louis Gilbert; Flo Perez; Lebron Malcolm; Amaya Dawn; Viet Heredia; Sonya Lombardo FINANCIAL REPORTING ACCOUNTANT; Neo Villeda PA; Stiven Gunn Discharge Orders/Prescriptions Prescriptions: No Action levothyroxine 125 mcg tablet 125 mcg PO DAILY Qty: 90 3RF potassium chloride 10 mEq capsule, extended release 10 meq PO DAILY Patient Comments: take 1 capsule by mouth once daily omeprazole 20 MG capsule,delayed release(DR/EC) 20 mg PO DAILY valsartan-hydrochlorothiazide 1 EACH tablet 1 ea PO DAILY Alive Women's Ultra Potency 18 mg-800 mcg DFE-150 mcg tablet 1 tab PO DAILY omega 8-quu-gbj-fish oil [Fish Oil] 300-1,000 mg capsule 1 cap PO DAILY melatonin 5 mg capsule 5 mg PO QHS PRN (Reason: sleep) Patient Comments: patient unsure of dose for this metoprolol tartrate 25 mg tablet 25 mg PO BID Qty: 180 3RF Other Ambulatory Orders: Hepatitis A AB, Total (Routine) Timeframe: [id number] Facility: [facility] - Location: Laboratory Ordered By: Dr. Stiven Gunn Referrals / Follow Up: Win Matos Chi, MD [Primary Care Provider] - Disposition Disposition (needs filled in before D/C Order can be placed): Home, Self Care
== END 2023-07-15 15:27 | disposition home or self-care (01) ==
LOC: SDC 14:59 → MS3 14:59
PROVIDERS: Anesthesiology; Family Medicine; Admitting Provider Orthopaedic Surgery; PCP Family Medicine Geriatric Medicine; Referring Provider Family Medicine Geriatric Medicine; Visit Provider Internal Medicine
PROC: (CPT 63030; principal; 2023-07-14 10:45)
DX: M47.26 Other spondylosis with radiculopathy, lumbar region (principal); Z68.41 Body mass index [BMI] 40.0-44.9, adult; I10 Essential (primary) hypertension; Z86.16 Personal history of COVID-19; Z79.899 Other long term (current) drug therapy; E89.0 Postprocedural hypothyroidism; Z79.890 Hormone replacement therapy; K21.9 Gastro-esophageal reflux disease without esophagitis; E66.9 Obesity, unspecified; Z86.2 Personal history of diseases of the blood and blood-forming organs and certain disorders involving the immune mechanism
CPT/HCPCS: 63030; 00630; 36415; 72020; 80048; 80076; 82962; 83735; 84443; 85025; 85610; 85730; 86703; 86706; 86708; 86803; 87081; 88304; 94668; 94762; 96361; 96365; 96366; 97161; 99221; J7120; G0378; J2405; J3475

== ENCOUNTER 2023-07-19 18:53 | Emergency (ER) | payer OTHER, SELFPAY ==
[2023-07-19 18:54] VITALS: BP 126/89; PULSE 94; RESP 18; TEMP 35.8; O2SAT 97
--- NOTE | 2023-07-19 19:09 | EDS_ITS ---
HPI History of Present Illness Chief Complaint: Constipation Informant: patient Onset/Context/Timing Onset: Days Context: Gradual Onset Narrative Narrative: Patient presents secondary to concerns for constipation. She had lumbar laminectomy and decompression on July [address] Gunn. She was discharged home to the hospital on Friday the . She states she had a couple small bowel movements that day, but has not been able to pass stool since that time. She is passing some gas. She feels that her abdomen is distended. She called her surgeon's office yesterday complaining of nausea and was given a prescription for Zofran. She called back today complaining of constipation and they called in a prescription for Dulcolax for her. She states she vomited this afternoon after taking the Dulcolax. Her last dose of Zofran was this morning. The directions on the Zofran prescription was for 1 tab daily. [facility] Medical History Arthritis Back pain [facility] Cardiology follow-up encounter COVID-19 virus detected (01/2020) Daytime somnolence Easy bruising Endometrial hyperplasia without atypia, simple Essential hypertension Gastric reflux Non-smoker Obesity Peripheral neuropathy PONV (postoperative nausea and vomiting) Postmenopausal bleeding Postoperative primary hypothyroidism Premature ventricular contractions Thyroid cancer Home Medications omeprazole 20 mg capsule,delayed release 20 mg PO DAILY 03/11/18 [History Last Taken 07/14/23] valsartan 320 mg-hydrochlorothiazide 12.5 mg tablet 1 ea PO DAILY 03/11/18 [History Last Taken 07/13/23] metoprolol tartrate 25 mg tablet 25 mg PO BID #180 tabs 04/05/21 [Rx Last Taken 07/14/23] levothyroxine 125 mcg tablet 125 mcg PO DAILY #90 tabs 03/21/23 [Rx Last Taken 07/14/23] potassium chloride 10 mEq capsule,extended release 10 meq PO DAILY 06/13/23 [History Last Taken 07/13/23] xukjlbbw-oqk-mstx 18 mg-mfolate 800 mcg DFE-vit K 150 mcg-herb tablet (Alive Women's Ultra Potency) 1 tab PO DAILY 06/24/23 [History Last Taken 07/06/23] melatonin 5 mg capsule 5 mg PO QHS PRN sleep 07/14/23 [History Last Taken Unknown] omega 4-nah-erm-fish oil 300 mg-1,000 mg capsule (Fish Oil) 1 cap PO DAILY 07/14/23 [History Last Taken Unknown] oxycodone-acetaminophen 5 mg-325 mg tablet 1 tab PO Q6H PRN pain 7 days #30 tabs 07/15/23 [Rx Last Taken Unknown] ondansetron HCl 4 mg tablet 4 mg PO DAILY PRN nausea and vomiting 5 days #5 tabs 07/18/23 [Rx Last Taken Unknown] bisacodyl 5 mg tablet,delayed release (Dulcolax (bisacodyl)) 5 mg PO BID PRN constipation 3 days #6 tabs 07/19/23 [Rx Last Taken Unknown] magnesium citrate 300 ml PO X1 #1 BOTTLE 07/19/23 [Rx Last Taken Unknown] promethazine 25 mg tablet 25 mg PO TID PRN nausea and vomiting #14 tabs 07/19/23 [Rx Last Taken Unknown] Allergy/AdvReac Type Severity Reaction Status Date / Time latex Allergy Itching Verified 07/19/23 18:54 Family History Unknown No problems noted. Surgical History History of cervical polypectomy History of laparoscopic-assisted vaginal hysterectomy (06/04/18) History of removal of neck cyst History of thyroid surgery Status post laminectomy [place] teeth extracted Social History adopted: Yes (does not know medical history) Smoking Status: Never smoker alcohol intake: never substance use type: does not use caffeine: No what type of physical activity do you participate in: other details: yard work ROS ROS ED Constitutional Constitutional ED: Denies chills or fever(s) Eyes Eyes: Denies discharge from eye(s) ENT ENT ED: Denies discharge from eye(s), rhinorrhea or sore throat Cardiovascular Cardiovascular: Denies chest pain Respiratory/Chest Respiratory/Chest: Denies cough or dyspnea Gastrointestinal Gastrointestinal: Reports abdominal pain, constipation, nausea and vomiting; Denies diarrhea Genitourinary Genitourinary ED: Denies dysuria Musculoskeletal Musculoskeletal: Denies extremity pain Integumentary Denies Abrasions or rash Neurologic Neurologic: Denies headache(s) or weakness Psychiatric Psychiatric: Denies anxiety or depression Allergic/Immunologic Allergic/Immunologic ED: Denies lip swelling or urticaria EXAM Physical Exam Const Vital Signs: 07/19/23 18:54 Temperature 96.5 F L Temperature Source Temporal Pulse Rate 94 Respiratory Rate 18 Blood Pressure 126/89 H Blood Pressure Mean 101 Pulse Ox 97 Oxygen Delivery Method Room Air Positive well nourished and well developed General Appearance ED: well developed HEENT Reports moist mucous membranes Eyes EOMs intact bilaterally Chest Wall inspection of chest normal and palpation of chest normal Resp normal respiratory effort and clear to auscultation bilaterally Cardio regular rate and regular rhythm GI GI Narrative: Abdomen slight distended but soft. No focal tenderness to palpation. Hypoactive but present bowel sounds are noted. Extremity normal to inspection Neuro oriented x3 Skin no rashes or lesions noted MDM MDM MDM Narrative Medical decision making narrative: Patient sent for abdominal x-ray to evaluate bowel gas pattern. If distal stool is noted she will receive a soapsuds enema. Treatment and Re-Evaluation :: Abdominal x-ray per my interpretation reveals increased stool mostly over the ascending colon. No bowel obstruction. Test results discussed with the patient. She did have a soapsuds enema and had moderate results. Patient states that she does still feel nauseated despite receiving a dose of Zofran here. I will write her prescription for Phenergan along with magnesium citrate. Patient comfortable with the plan. Return instructions given. Discharge Plan Triage Chief Complaint: Constipation ED Provider: Keli Arauz Dx/Rx/DC Orders Clinical Impression: Constipation Instructions: ED Constipation (Adult) Prescriptions: New magnesium citrate Solution 300 ml PO X1 Qty: 1 0RF Rx Instructions: Drink half bottle of magnesium citrate. If no relief in 3 hours, drink the remainder of the bottle. promethazine 25 mg tablet 25 mg PO TID PRN (Reason: nausea and vomiting) Qty: 14 0RF No Action levothyroxine 125 mcg tablet 125 mcg PO DAILY Qty: 90 3RF potassium chloride 10 mEq capsule, extended release 10 meq PO DAILY Patient Comments: take 1 capsule by mouth once daily omeprazole 20 MG capsule,delayed release(DR/EC) 20 mg PO DAILY valsartan-hydrochlorothiazide 1 EACH tablet 1 ea PO DAILY Alive Women's Ultra Potency 18 mg-800 mcg DFE-150 mcg tablet 1 tab PO DAILY omega 8-ent-kyk-fish oil [Fish Oil] 300-1,000 mg capsule 1 cap PO DAILY melatonin 5 mg capsule 5 mg PO QHS PRN (Reason: sleep) Patient Comments: patient unsure of dose for this metoprolol tartrate 25 mg tablet 25 mg PO BID Qty: 180 3RF oxycodone-acetaminophen 5-325 mg tablet 1 tab PO Q6H PRN (Reason: pain) 7 Days Qty: 30 0RF ondansetron HCl 4 mg tablet 4 mg PO DAILY PRN (Reason: nausea and vomiting) 5 Days Qty: 5 0RF bisacodyl [Dulcolax (bisacodyl)] 5 mg tablet,delayed release (DR/EC) 5 mg PO BID PRN (Reason: constipation) 3 Days Qty: 6 0RF Primary Care Provider: Win Matos Chi Referrals: Stiven Gunn DO [Med Staff - Active Staff] - 3-5 Days if not improving Win Matos Chi, MD [Primary Care Provider] - 3-5 Days if not improving Disposition Disposition: Home, Self Care
--- NOTE | 2023-07-19 19:10 | RAD_ITS ---
STUDY: X-RAY - ABDOMEN/PELVIS REASON FOR EXAM: Female, 63 years old. CONSTIPATION TECHNIQUE: Single AP view of the abdomen / pelvis. COMPARISON: None. FINDINGS: Skin ravinder in the midline consistent with recent abdominal surgery. There is an unremarkable bowel gas pattern. The visualized liver, spleen and kidneys are grossly normal in size and morphology. Normal soft tissue structures. Normal visualized osseous structures. RAD/Abdomen Single View IMPRESSION: No bowel obstruction. Electronically Signed: Óscar Lloyd MD at 19:24 EDT ,
[2023-07-19] MEDS: Ondansetron ODT 4 MG Tablet PO (19:57)
[2023-07-19 20:54] VITALS: BP 130/92; PULSE 88; RESP 18; TEMP 36.3; O2SAT 98; BMI 30.9
[2023-07-19 21:23] VITALS: BP 130/91; PULSE 88; RESP 18; TEMP 36.1; O2SAT 98
== END 2023-07-19 21:33 | disposition home or self-care (01) ==
PROVIDERS: Emergency Provider Emergency Medicine; PCP Family Medicine Geriatric Medicine; Visit Provider Emergency Medicine
DX: K59.00 Constipation, unspecified (principal); I10 Essential (primary) hypertension; K21.9 Gastro-esophageal reflux disease without esophagitis; E89.0 Postprocedural hypothyroidism; Z79.899 Other long term (current) drug therapy; Z79.890 Hormone replacement therapy
CPT/HCPCS: 74018; 99284

== ENCOUNTER → 2023-08-06 | Outpatient (CLI) | payer OTHER, SELFPAY ==
--- NOTE | 2023-08-06 11:55 | RAD_ITS ---
INDICATION: APPETITE LOSS COMPARISON: None. FINDINGS: 3 frontal views of the abdomen. Nonobstructive bowel gas pattern. No obvious free air. No definite suspicious calcifications. No mass appreciated. RAD/Abd Inc Decub and/or Erect IMPRESSION: Unremarkable abdomen. Electronically Signed: Jack Davis MD at 5:32 EDT ,
[2023-08-06 12:01] LABS: Absolute Lymphocyte Count 1.25 X10^3/uL (0.83-4.51); Absolute Neutrophil Count 5.4 X10^3/uL (2.0-7.7); Basophil# 0.04 X10^3/uL; Basophil% 0.5 % (0-1); Eosinophil# 0.09 X10^3/uL; Eosinophils% 1.2 % (0-5); Hematocrit 39.2 % (37-47); Hemoglobin 12.7 g/dL (12.0-15.0); Lymphocyte # 1.25 X10^3/ul (0.83-4.51); Lymphocyte % 16.9 % (19-41); Mean Corp Hgb Conc 32.4 g/dL (32-36); Mean Corpuscular Volume 86.3 fL (81-99); Mean Platelet Vol. 9.5 fl (6.2-12.0); Monocyte# 0.59 X10^3/uL; NRBC Flagged by Analyzer 0 % (0-5); Platelet Count 256 K/mm3 (150-450); RBC Distribution Width CV 12.5 % (11.6-14.6); RBC Distribution Width SD 38.9 fl (35.1-43.9); Red Blood Count 4.54 M/mm3 (4.2-5.4); White Blood Count 7.4 K/mm3 (4.4-11.0)
[2023-08-06 12:54] LABS: ALB/GLOB Ratio 1.1 RATIO (0.9-2.4); AST(SGOT) 17 U/L (15-37); Alanine Aminotransfer ALT/SGPT 30 U/L (13-56); Albumin, Serum 3.8 g/dL (3.2-5.0); Alkaline Phosphatase 57 U/L (45-117); Anion Gap 7 (5-15); BUN 13 mg/dL (7-18); BUN/Creat Ratio 13.8 RATIO (10-20); Calcium,Total 9.8 mg/dL (8.5-10.1); Chloride 105 mmol/L (98-107); Creatinine, Serum 0.94 mg/dL (0.55-1.02); EST Glomerular Filtration Rate 64 mL/min (>60); Est Glom Filt Rate - Afr Amer 77 mL/min (>60); Globulin 3.6 g/dL (2.2-4.2); Glucose 120 mg/dL (74-106); Potassium 3.3 mmol/L (3.5-5.1); Protein, Total 7.4 g/dL (6.4-8.2); Sodium Level 139 mmol/L (136-145); T4 Free Direct 1.49 ng/dL (0.76-1.46); Thyroid Stim Hormone (TSH) 0.13 uIU/mL (0.358-3.74)
[2023-08-07 18:07] LABS: Anti-Thyroglobulin AB < 1.0 IU/mL (0.0-0.9); Thyroglobulin, Serum Qt. < 0.1 ng/mL (1.5-38.5)
== END | disposition home or self-care (01) ==
PROVIDERS: Internal Medicine Endocrinology, Diabetes & Metabolism; PCP Family Medicine Geriatric Medicine; Visit Provider Family Medicine Geriatric Medicine
DX: C73 Malignant neoplasm of thyroid gland (principal); I10 Essential (primary) hypertension; R63.0 Anorexia; E89.0 Postprocedural hypothyroidism
CPT/HCPCS: 36415; 74019; 80053; 84432; 84439; 84443; 85025; 86800

== ENCOUNTER → 2023-09-12 | Outpatient (CLI) | payer OTHER, SELFPAY ==
[2023-09-12 10:11] LABS: Anion Gap 7 (5-15); BUN 22 mg/dL (7-18); BUN/Creat Ratio 24.9 RATIO (10-20); Calcium,Total 9.3 mg/dL (8.5-10.1); Chloride 105 mmol/L (98-107); Creatinine, Serum 0.88 mg/dL (0.55-1.02); EST Glomerular Filtration Rate 69 mL/min (>60); Est Glom Filt Rate - Afr Amer 83 mL/min (>60); Glucose 106 mg/dL (74-106); Potassium 3.8 mmol/L (3.5-5.1); Sodium Level 140 mmol/L (136-145); T4 Free Direct 1.36 ng/dL (0.76-1.46); Thyroid Stim Hormone (TSH) 0.37 uIU/mL (0.358-3.74)
[2023-09-16 14:51] LABS: T3 Uptake 27 % (30-39)
[2023-09-16 20:50] LABS: T7 / Free Thyroxin Index 0.4 (1.4-4.5)
== END | disposition home or self-care (01) ==
LOC: LAB 09:03
PROVIDERS: PCP Family Medicine Geriatric Medicine; Referring Provider Family Medicine Geriatric Medicine; Visit Provider Family Medicine Geriatric Medicine
DX: I10 Essential (primary) hypertension (principal); E03.9 Hypothyroidism, unspecified; E78.5 Hyperlipidemia, unspecified
CPT/HCPCS: 36415; 80048; 84439; 84443; 84479

== ENCOUNTER → 2024-01-12 | Outpatient (CLI) | payer OTHER, SELFPAY ==
--- NOTE | 2024-01-12 10:19 | RAD_ITS ---
INDICATION: INFLAMMATORY POLYARTHROPATHY EXAMINATION/TECHNIQUE: X-RAY - XR Pelvis 1 or 2 Views COMPARISON: None. FINDINGS: PELVIC BONES: No displaced fracture, destructive or sclerotic lesions. Note that overlapping bowel shadows may however obscure fine detail. Sacroiliac joints are unremarkable. No widening of the pubic symphysis. HIPS: The articular structures are unremarkable. There is moderate osteophyte formation involving the acetabular roof greater on the LEFT than RIGHT. No evidence of fracture or dislocation. SOFT TISSUES: No soft tissue swelling or gas. RAD/Pelvis 1 or 2 Views IMPRESSION: 1. No evidence of displaced pelvic or hip fracture. 2. Osteophyte formation involving the acetabular roof bilaterally greater on LEFT than RIGHT. Disc spaces maintained. Normal appearance pelvic ring. Electronically Signed: Óscar Staples MD at 23:51 EDT ,
[2024-01-12 12:13] LABS: Erythrocyte Sedimentation Rate 6 mm/hr (0-30)
[2024-01-12 12:16] LABS: Absolute Lymphocyte Count 1.89 X10^3/uL (0.83-4.51); Absolute Neutrophil Count 6.4 X10^3/uL (2.0-7.7); Basophil# 0.05 X10^3/uL; Basophil% 0.5 % (0-1); Eosinophils% 1.1 % (0-5); Hematocrit 40.9 % (37-47); Hemoglobin 13.1 g/dL (12.0-15.0); Lymphocyte # 1.89 X10^3/ul (0.83-4.51); Lymphocyte % 20.7 % (19-41); Mean Corpuscular Hgb 27.2 pg (27.0-32.0); Mean Platelet Vol. 10.4 fl (6.2-12.0); Monocyte# 0.64 X10^3/uL; NRBC Flagged by Analyzer 0 % (0-5); Neutrophil % 70.4 % (47-70); Platelet Count 265 K/mm3 (150-450); RBC Distribution Width CV 13.2 % (11.6-14.6); RBC Distribution Width SD 40.6 fl (35.1-43.9); Red Blood Count 4.81 M/mm3 (4.2-5.4); White Blood Count 9.1 K/mm3 (4.4-11.0)
[2024-01-12 12:41] LABS: AST(SGOT) 14 U/L (15-37); Alanine Aminotransfer ALT/SGPT 18 U/L (13-56); Albumin, Serum 3.7 g/dL (3.2-5.0); Alkaline Phosphatase 70 U/L (45-117); Anion Gap 9 (5-15); BUN 27 mg/dL (7-18); BUN/Creat Ratio 26.2 RATIO (10-20); CRP 8.76 mg/L (0.0-3.0); Calcium,Total 9.7 mg/dL (8.5-10.1); Chloride 105 mmol/L (98-107); Creatinine, Serum 1.03 mg/dL (0.55-1.02); EST Glomerular Filtration Rate 57 mL/min (>60); Est Glom Filt Rate - Afr Amer 69 mL/min (>60); Globulin 3.7 g/dL (2.2-4.2); Glucose 98 mg/dL (74-106); Potassium 3.3 mmol/L (3.5-5.1); Protein, Total 7.4 g/dL (6.4-8.2); Sodium Level 141 mmol/L (136-145)
[2024-01-12 13:12] LABS: Hepatitis B Surface Antibody Non-Reactive; Hepatitis B Surface Antigen Non-Reactive (Nonreactive); Hepatitis C Antibody Non-Reactive (Nonreactive)
[2024-01-13 13:08] LABS: CCP IgG Antibodies 7 units (0-19)
[2024-01-13 14:28] LABS: Rheumatoid Factor < 10.0 IU/mL (<15)
[2024-01-13 16:11] LABS: ANTINUCLEAR ANTIBODIES DIRECT Negative (Negative)
[2024-01-17 11:42] LABS: Cholesterol 214 mg/dL (200); High Density Lipoprotein 72 mg/dL; Triglycerides 125 mg/dL; Very Low Density Lipoprotein 25 mg/dL (5-40)
== END | disposition home or self-care (01) ==
LOC: MTLAB 10:18
PROVIDERS: PCP Family Medicine Geriatric Medicine; Referring Provider Internal Medicine Rheumatology; Visit Provider Internal Medicine Rheumatology
DX: M06.4 Inflammatory polyarthropathy (principal); M17.0 Bilateral primary osteoarthritis of knee; I10 Essential (primary) hypertension; E78.5 Hyperlipidemia, unspecified
CPT/HCPCS: 36415; 72170; 80053; 80061; 84443; 85025; 85652; 86038; 86140; 86200; 86431; 86706; 86803; 87340

== ENCOUNTER → 2024-02-12 | Outpatient (CLI) | payer OTHER, SELFPAY ==
[2024-02-12 18:13] LABS: Anion Gap 4 (5-15); BUN 22 mg/dL (7-18); BUN/Creat Ratio 25.7 RATIO (10-20); Calcium,Total 8.8 mg/dL (8.5-10.1); Chloride 106 mmol/L (98-107); Creatinine, Serum 0.86 mg/dL (0.55-1.02); EST Glomerular Filtration Rate 71 mL/min (>60); Est Glom Filt Rate - Afr Amer 86 mL/min (>60); Glucose 113 mg/dL (74-106); Potassium 3.6 mmol/L (3.5-5.1); Sodium Level 139 mmol/L (136-145)
[2024-02-12 18:27] LABS: Thyroid Stim Hormone (TSH) 0.328 uIU/mL (0.358-3.740)
== END | disposition home or self-care (01) ==
PROVIDERS: Internal Medicine Endocrinology, Diabetes & Metabolism; PCP Family Medicine Geriatric Medicine; Referring Provider Family Medicine Geriatric Medicine; Visit Provider Family Medicine Geriatric Medicine
DX: I10 Essential (primary) hypertension (principal)
CPT/HCPCS: 36415; 80048; 84439; 84443

== ENCOUNTER → 2024-02-28 | Outpatient (CLI) | payer OTHER, SELFPAY ==
[2024-02-28 09:05] LABS: Absolute Lymphocyte Count 2.72 X10^3/uL (0.83-4.51); Absolute Neutrophil Count 3.9 X10^3/uL (2.0-7.7); Basophil# 0.06 X10^3/uL; Basophil% 0.8 % (0-1); Eosinophil# 0.13 X10^3/uL; Eosinophils% 1.7 % (0-5); Hematocrit 37.7 % (37-47); Hemoglobin 12.1 g/dL (12.0-15.0); Lymphocyte # 2.72 X10^3/ul (0.83-4.51); Lymphocyte % 36.6 % (19-41); Mean Corp Hgb Conc 32.1 g/dL (32-36); Mean Corpuscular Hgb 27.9 pg (27.0-32.0); Mean Corpuscular Volume 86.9 fL (81-99); Mean Platelet Vol. 9.2 fl (6.2-12.0); Monocyte# 0.61 X10^3/uL; Monocyte% 8.2 % (0-10); NRBC Flagged by Analyzer 0 % (0-5); Neutrophil # 3.87 X10^3/uL (2.7-7.7); Neutrophil % 52.2 % (47-70); Platelet Count 246 K/mm3 (150-450); RBC Distribution Width CV 13.6 % (11.6-14.6); RBC Distribution Width SD 41.7 fl (35.1-43.9); Red Blood Count 4.34 M/mm3 (4.2-5.4); White Blood Count 7.4 K/mm3 (4.4-11.0)
[2024-02-28 09:36] LABS: ALB/GLOB Ratio 1.1 RATIO (0.9-2.4); AST(SGOT) 10 U/L (15-37); Alanine Aminotransfer ALT/SGPT 14 U/L (13-56); Albumin, Serum 3.5 g/dL (3.2-5.0); Alkaline Phosphatase 59 U/L (45-117); Anion Gap 5 (5-15); BUN 23 mg/dL (7-18); BUN/Creat Ratio 25.6 RATIO (10-20); Chloride 106 mmol/L (98-107); EST Glomerular Filtration Rate 67 mL/min (>60); Est Glom Filt Rate - Afr Amer 81 mL/min (>60); Globulin 3.2 g/dL (2.2-4.2); Glucose 99 mg/dL (74-106); Potassium 3.9 mmol/L (3.5-5.1); Protein, Total 6.7 g/dL (6.4-8.2); Sodium Level 141 mmol/L (136-145)
== END | disposition home or self-care (01) ==
LOC: LAB 08:57
PROVIDERS: PCP Family Medicine Geriatric Medicine; Referring Provider Internal Medicine Rheumatology; Visit Provider Internal Medicine Rheumatology
DX: M06.4 Inflammatory polyarthropathy (principal); Z79.899 Other long term (current) drug therapy
CPT/HCPCS: 36415; 80053; 85025

== ENCOUNTER → 2024-04-29 | Outpatient (CLI) | payer BC, SELFPAY ==
[2024-04-29 15:14] LABS: Absolute Lymphocyte Count 1.43 X10^3/uL (0.83-4.51); Absolute Neutrophil Count 7.5 X10^3/uL (2.0-7.7); Basophil# 0.05 X10^3/uL; Basophil% 0.5 % (0-1); Eosinophil# 0.05 X10^3/uL; Eosinophils% 0.5 % (0-5); Hematocrit 39.2 % (37-47); Hemoglobin 13.1 g/dL (12.0-15.0); Lymphocyte # 1.43 X10^3/ul (0.83-4.51); Lymphocyte % 14.8 % (19-41); Mean Corp Hgb Conc 33.4 g/dL (32-36); Mean Corpuscular Volume 86.7 fL (81-99); Mean Platelet Vol. 9.9 fl (6.2-12.0); Monocyte# 0.56 X10^3/uL; Monocyte% 5.8 % (0-10); NRBC Flagged by Analyzer 0 % (0-5); Neutrophil # 7.52 X10^3/uL (2.7-7.7); Neutrophil % 77.8 % (47-70); Platelet Count 283 K/mm3 (150-450); RBC Distribution Width CV 13.8 % (11.6-14.6); RBC Distribution Width SD 42.3 fl (35.1-43.9); Red Blood Count 4.52 M/mm3 (4.2-5.4); White Blood Count 9.7 K/mm3 (4.4-11.0)
[2024-04-29 15:36] LABS: ALB/GLOB Ratio 1.1 RATIO (0.9-2.4); AST(SGOT) 12 U/L (15-37); Alanine Aminotransfer ALT/SGPT 29 U/L (13-56); Alkaline Phosphatase 57 U/L (45-117); Anion Gap 5 (5-15); BUN 23 mg/dL (7-18); Calcium,Total 9.9 mg/dL (8.5-10.1); Chloride 105 mmol/L (98-107); Creatinine, Serum 0.96 mg/dL (0.55-1.02); EST Glomerular Filtration Rate 62 mL/min (>60); Est Glom Filt Rate - Afr Amer 75 mL/min (>60); Globulin 3.5 g/dL (2.2-4.2); Glucose 96 mg/dL (74-106); Potassium 3.5 mmol/L (3.5-5.1); Protein, Total 7.5 g/dL (6.4-8.2); Sodium Level 138 mmol/L (136-145)
== END | disposition home or self-care (01) ==
LOC: MTLAB 12:31
PROVIDERS: PCP Family Medicine Geriatric Medicine; Referring Provider Internal Medicine Rheumatology; Visit Provider Internal Medicine Rheumatology
DX: M06.4 Inflammatory polyarthropathy (principal); Z79.899 Other long term (current) drug therapy
CPT/HCPCS: 36415; 80053; 85025

== ENCOUNTER → 2024-05-17 | Outpatient (CLI) | payer BC, SELFPAY ==
--- NOTE | 2024-05-17 11:52 | BI_ITS ---
PROCEDURE: SCRN MAMM (CAD)W/MACHELLE BILAT REASON FOR EXAM: F, Age 64 y/o, presents for annual screening mammogram. There is no family history of breast cancer. TECHNIQUE: Bilateral screening digital breast tomosynthesis with 2D and 3D images. Computer aided detection. COMPARISON: 05/15/2023 FINDINGS: There are scattered areas of fibroglandular density. No suspicious masses, areas of developing architectural distortion, or suspicious calcifications. BI/SCRN MAMM (CAD)W/MACHELLE BILAT IMPRESSION: There is no mammographic evidence of malignancy. BI-RADS 1: NEGATIVE. RECOMMEND ANNUAL MAMMOGRAPHIC SCREENING. Follow-up code: Routine Follow-up The patient will be notified of the results by letter. Reading Location: [id number]
== END | disposition home or self-care (01) ==
LOC: OPBI 11:50
PROVIDERS: PCP Family Medicine Geriatric Medicine; Referring Provider Family Medicine Geriatric Medicine; Visit Provider Family Medicine Geriatric Medicine
DX: Z12.31 Encounter for screening mammogram for malignant neoplasm of breast (principal)
CPT/HCPCS: 77063; 77067

== ENCOUNTER → 2024-06-11 | Outpatient (CLI) | payer BC, SELFPAY ==
[2024-06-11 10:59] LABS: Absolute Lymphocyte Count 1.62 X10^3/uL (0.83-4.51); Absolute Neutrophil Count 4.2 X10^3/uL (2.0-7.7); Basophil# 0.06 X10^3/uL; Basophil% 0.9 % (0-1); Eosinophils% 1.5 % (0-5); Hematocrit 37.4 % (37-47); Hemoglobin 12.4 g/dL (12.0-15.0); Lymphocyte # 1.62 X10^3/ul (0.83-4.51); Lymphocyte % 24.6 % (19-41); Mean Corp Hgb Conc 33.2 g/dL (32-36); Mean Corpuscular Hgb 28.8 pg (27.0-32.0); Mean Platelet Vol. 10.4 fl (6.2-12.0); Monocyte# 0.56 X10^3/uL; Monocyte% 8.5 % (0-10); NRBC Flagged by Analyzer 0 % (0-5); Neutrophil # 4.23 X10^3/uL (2.7-7.7); Neutrophil % 64.2 % (47-70); Platelet Count 240 K/mm3 (150-450); RBC Distribution Width CV 13.8 % (11.6-14.6); RBC Distribution Width SD 42.5 fl (35.1-43.9); White Blood Count 6.6 K/mm3 (4.4-11.0)
[2024-06-11 11:03] LABS: ALB/GLOB Ratio 1.5 RATIO (0.9-2.4); AST(SGOT) 16 U/L (<=31); Alanine Aminotransfer ALT/SGPT 13 U/L (<=34); Albumin, Serum 4.1 g/dL (3.4-4.8); Alkaline Phosphatase 60 U/L (35-104); Anion Gap 11 (5-15); BUN 19 mg/dL (4-19); BUN/Creat Ratio 20.4 RATIO (10-20); Calcium,Total 9.5 mg/dL (7.6-11.0); Carbon Dioxide 26.4 mmol/L (21.0-32.0); Chloride 104 mmol/L (98-108); Creatinine, Serum 0.95 mg/dL (0.70-1.20); EST Glomerular Filtration Rate 67 (>60); Globulin 2.7 g/dL (2.2-4.2); Glucose 96 mg/dL (70-99); Potassium 3.7 mmol/L (3.3-5.1); Protein, Total 6.8 g/dL (5.9-8.4); Sodium Level 141 mmol/L (133-145); Total Bilirubin 0.36 mg/dL (0.00-1.30)
== END | disposition home or self-care (01) ==
LOC: MTLAB 08:27
PROVIDERS: PCP Family Medicine Geriatric Medicine; Referring Provider Internal Medicine Rheumatology; Visit Provider Internal Medicine Rheumatology
DX: M06.4 Inflammatory polyarthropathy (principal); M17.0 Bilateral primary osteoarthritis of knee; Z79.899 Other long term (current) drug therapy
CPT/HCPCS: 36415; 80053; 85025

== ENCOUNTER → 2024-07-06 | Outpatient (CLI) | payer BC, SELFPAY ==
[2024-07-07 16:09] LABS: Anti-Thyroglobulin AB < 1.0 IU/mL (0.0-0.9); Thyroglobulin, Serum Qt. < 0.1 ng/mL (1.5-38.5)
== END | disposition home or self-care (01) ==
LOC: MTLAB 10:55
PROVIDERS: PCP Family Medicine Geriatric Medicine; Referring Provider Internal Medicine Endocrinology, Diabetes & Metabolism; Visit Provider Internal Medicine Endocrinology, Diabetes & Metabolism
DX: C73 Malignant neoplasm of thyroid gland (principal); E89.0 Postprocedural hypothyroidism
CPT/HCPCS: 36415; 84432; 84439; 84443; 86800

== ENCOUNTER → 2024-07-14 | Outpatient (CLI) | payer BC, SELFPAY ==
[2024-07-14 12:26] LABS: Absolute Lymphocyte Count 2.27 X10^3/uL (0.83-4.51); Absolute Neutrophil Count 4.4 X10^3/uL (2.0-7.7); Basophil# 0.07 X10^3/uL; Basophil% 0.9 % (0-1); Eosinophil# 0.12 X10^3/uL; Eosinophils% 1.6 % (0-5); Hematocrit 35.7 % (37-47); Hemoglobin 11.8 g/dL (12.0-15.0); Lymphocyte # 2.27 X10^3/ul (0.83-4.51); Lymphocyte % 29.6 % (19-41); Mean Corp Hgb Conc 33.1 g/dL (32-36); Mean Corpuscular Hgb 29.5 pg (27.0-32.0); Mean Corpuscular Volume 89.3 fL (81-99); Mean Platelet Vol. 10.2 fl (6.2-12.0); Monocyte# 0.77 X10^3/uL; NRBC Flagged by Analyzer 0 % (0-5); Neutrophil # 4.42 X10^3/uL (2.7-7.7); Neutrophil % 57.5 % (47-70); Platelet Count 264 K/mm3 (150-450); RBC Distribution Width CV 13.8 % (11.6-14.6); RBC Distribution Width SD 44.4 fl (35.1-43.9); White Blood Count 7.7 K/mm3 (4.4-11.0)
[2024-07-14 15:44] LABS: ALB/GLOB Ratio 1.6 RATIO (0.9-2.4); AST(SGOT) 16 U/L (<=31); Alanine Aminotransfer ALT/SGPT 18 U/L (<=34); Albumin, Serum 4.1 g/dL (3.4-4.8); Alkaline Phosphatase 60 U/L (35-104); Anion Gap 11 (5-15); BUN 23 mg/dL (4-19); BUN/Creat Ratio 26.1 RATIO (10-20); Calcium,Total 9.6 mg/dL (7.6-11.0); Carbon Dioxide 27.2 mmol/L (21.0-32.0); Chloride 102 mmol/L (98-108); Creatinine, Serum 0.88 mg/dL (0.70-1.20); EST Glomerular Filtration Rate 73 (>60); Globulin 2.7 g/dL (2.2-4.2); Glucose 81 mg/dL (70-99); Potassium 3.8 mmol/L (3.3-5.1); Protein, Total 6.8 g/dL (5.9-8.4); Sodium Level 140 mmol/L (133-145); Total Bilirubin 0.29 mg/dL (0.00-1.30)
== END | disposition home or self-care (01) ==
LOC: MTLAB 10:30
PROVIDERS: PCP Family Medicine Geriatric Medicine; Referring Provider Family Medicine Geriatric Medicine; Visit Provider Family Medicine Geriatric Medicine
DX: I10 Essential (primary) hypertension (principal)
CPT/HCPCS: 36415; 80053; 84443; 85025

== ENCOUNTER → 2024-09-02 | Outpatient (CLI) | payer BC, SELFPAY ==
[2024-09-02 12:42] LABS: Absolute Lymphocyte Count 1.26 X10^3/uL (0.83-4.51); Absolute Neutrophil Count 2.9 X10^3/uL (2.0-7.7); Basophil# 0.06 X10^3/uL; Basophil% 1.2 % (0-1); Eosinophil# 0.14 X10^3/uL; Eosinophils% 2.8 % (0-5); Hematocrit 37.1 % (37-47); Hemoglobin 12.4 g/dL (12.0-15.0); Lymphocyte # 1.26 X10^3/ul (0.83-4.51); Lymphocyte % 25.4 % (19-41); Mean Corp Hgb Conc 33.4 g/dL (32-36); Mean Corpuscular Hgb 29.2 pg (27.0-32.0); Mean Corpuscular Volume 87.3 fL (81-99); Mean Platelet Vol. 10.8 fl (6.2-12.0); Monocyte# 0.57 X10^3/uL; Monocyte% 11.5 % (0-10); NRBC Flagged by Analyzer 0 % (0-5); Neutrophil # 2.92 X10^3/uL (2.7-7.7); Neutrophil % 58.7 % (47-70); Platelet Count 278 K/mm3 (150-450); RBC Distribution Width CV 12.9 % (11.6-14.6); RBC Distribution Width SD 40.7 fl (35.1-43.9); Red Blood Count 4.25 M/mm3 (4.2-5.4)
[2024-09-02 13:30] LABS: ALB/GLOB Ratio 1.5 RATIO (0.9-2.4); AST(SGOT) 20 U/L (<=31); Alanine Aminotransfer ALT/SGPT 14 U/L (<=34); Alkaline Phosphatase 65 U/L (35-104); Anion Gap 11 (5-15); BUN 22 mg/dL (4-19); Calcium,Total 9.6 mg/dL (7.6-11.0); Carbon Dioxide 25.5 mmol/L (21.0-32.0); Chloride 104 mmol/L (98-108); Creatinine, Serum 0.98 mg/dL (0.70-1.20); EST Glomerular Filtration Rate 65 (>60); Globulin 2.7 g/dL (2.2-4.2); Glucose 104 mg/dL (70-99); Protein, Total 6.8 g/dL (5.9-8.4); Sodium Level 140 mmol/L (133-145); Total Bilirubin 0.38 mg/dL (0.00-1.30)
== END | disposition home or self-care (01) ==
LOC: MTLAB 09:17
PROVIDERS: PCP Family Medicine Geriatric Medicine; Referring Provider Internal Medicine Rheumatology; Visit Provider Internal Medicine Rheumatology
DX: M06.4 Inflammatory polyarthropathy (principal); M17.0 Bilateral primary osteoarthritis of knee; Z79.899 Other long term (current) drug therapy
CPT/HCPCS: 36415; 80053; 85025

== ENCOUNTER → 2024-10-05 | Outpatient (CLI) | payer BC, SELFPAY ==
--- NOTE | 2024-10-05 14:25 | CT_ITS ---
PROCEDURE: SINUS/FACIAL BONE 10/05/2024 REASON FOR EXAM: CYST AND MUCOCELE OF NOSE AND NASAL SINUS TECHNIQUE: SINUS/FACIAL BONE Coronal and Sagittal reconstruction series were provided. One or more dose reduction techniques were used (e.g., Automated exposure control, adjustment of the mA and/or kV according to patient size, use of iterative reconstruction technique). RADIATION DOSE SUMMARY: CTDlvol: 29.38 mGy DLP: 731.11 mGycm COMPARISON: None. FINDINGS: Gskv-iz-mggcvaem degenerative changes of the visualized portions of the cervical spine. Mild anterior subluxation of C4 upon C5 is also noted. Mild mucosal thickening is seen of the bilateral ethmoid maxillary sinuses. Minimal mucosal thickening is seen of the right sphenoid sinus. No air-fluid level is noted. The remaining paranasal sinuses appear clear. No ostial obstruction is evident on either side. No significant degree nasal septal deviation is noted. No nasal mass is identified. Mastoids/Middle Ears: Extensive partial opacification of right mastoid air cells is seen, of uncertain chronicity. Left mastoid air cells appear clear. No osseous destructive change is seen. No orbital pathology is evident. CT/Sinus/Facial Bone IMPRESSION: 1. Mild chronic appearing paranasal sinus disease. 2. Additional findings as noted. Reading Location: [place] [id number]
--- NOTE | 2024-10-05 14:30 | RAD_ITS ---
PROCEDURE: L/S SPINE MIN 4 VIEWS 10/05/2024 REASON FOR EXAM: MUSCLE SPASM OF BACK, LOW BACK PAIN TECHNIQUE: L/S SPINE MIN 4 VIEWS COMPARISON: No FINDINGS: Diffuse facet arthritis most pronounced L3 through S1. Relative disc space preservation. Grade 1 anterolisthesis L4 on L5. No acute bone or soft tissue pathology. RAD/L/S Spine Min 4 Views IMPRESSION: Lumbar spine degeneration Reading Location: [facility]
== END | disposition home or self-care (01) ==
PROVIDERS: PCP Family Medicine Geriatric Medicine; Referring Provider Otolaryngology; Visit Provider Otolaryngology
DX: M62.830 Muscle spasm of back (principal); M54.50 Low back pain, unspecified; J32.8 Other chronic sinusitis
CPT/HCPCS: 70486; 72110

== ENCOUNTER 2024-10-08 08:26 | Emergency (ER) | payer BC, SELFPAY ==
[2024-10-08 08:26] VITALS: BP 166/94; PULSE 90; RESP 18; TEMP 36.6; O2SAT 100; BMI 41.3
--- NOTE | 2024-10-08 08:35 | EDS_ITS ---
HPI HPI - GI History of Present Illness Chief Complaint: Abd Pain Informant: patient Abdominal Pain/Flank Pain Onset: Weeks (2) Context: Gradual Onset Timing: Continuous Quality: Sharp and Stabbing Location: Right Flank Worsened by: Movement and - (Deep breathing) Relieved by: Remaining Still Nausea/Vomiting/Emesis GI Symptom: Negative for Nausea or Vomiting Diarrhea/Melena/Hematochezia GI Symptom: Negative for Diarrhea, Melena or Hematochezia Associated Symptoms Associated Symptoms: Positive for Frequency; Negative for Dysuria or Hematuria Narrative Narrative: Patient presents with abdominal pain is been getting worse over the past 2 weeks. Patient states is gradually getting worse. Patient describes it as sharp and stabbing. Patient states it is constant. Patient states it is mainly over the right flank area. Patient states it is worse with movement and deep breathing. Patient states it is better when she is able to remain still. Patient denies any nausea or vomiting. Patient denies any diarrhea, melena, or hematochezia. Patient admits to some urinary frequency but denies any dysuria or hematuria. Patient denies any fevers or chills. PFSH PFSH Medical History PONV (postoperative nausea and vomiting) Arthritis Easy bruising Back pain Gastric reflux Non-smoker Cardiology follow-up encounter Postoperative primary hypothyroidism Thyroid cancer COVID-19 virus detected (01/2020) Obesity Essential hypertension Endometrial hyperplasia without atypia, simple Daytime somnolence Peripheral neuropathy Bigeminy Premature ventricular contractions Postmenopausal bleeding Home Medications ?Medication ?Instructions ?Recorded ?Last Taken ?Type valsartan 320 1 ea PO DAILY 03/11/1807/12 History mg-hydrochlorothiazide 12.5 mg tablet metoprolol tartrate 25 mg tablet 25 mg PO BID #180 tab s 04/05/21 07/14/23 Rx folic acid 1 mg tablet 2 mg PO QDAY 03/19/24 Unknow n History leucovorin calcium 15 mg tablet 15 mg PO QWEEK 4 Unknown History potassium chloride 20 mEq 20 meq PO QDAY 03/19/24 Unkn own History tablet,extended release prednisone 10 mg tablet 10 mg PO QDAY PRN 03/19/24 U nknown History pregabalin 75 mg capsule 75 mg PO TID 03/19/24 Unknow n History tramadol 50 mg tablet 50 mg PO TID PRN 03/19/24 Un known History celecoxib 200 mg capsule (Celebrex) 200 mg PO BID #30 caps 09/01/24 Unknown Rx levothyroxine 112 mcg tablet 125 mcg PO QDAY 09/30/24 Unknown History methotrexate sodium 2.5 mg tablet 25 mg PO QWEEK 09/30 Unknown History hydrocodone-acetaminophen 5-325mg 1 tab PO Q6H PRN PRN Pain 3 days 10/08/24 Unknown Rx 5mg-325mg #10 TABLETS Allergy/AdvReac Type Severity Reaction Status Date / Time latex Allergy Itching Verified 10/08/24 08:26 Family History Unknown No problems noted. Surgical History Status post laminectomy History of laparoscopic-assisted vaginal hysterectomy (06/04/18) [place] teeth extracted History of cervical polypectomy History of removal of neck cyst History of thyroid surgery Social History adopted: Yes (does not know medical history) Smoking Status: Never smoker alcohol intake: never substance use type: does not use caffeine: No what type of physical activity do you participate in: other details: yard work ROS ROS ED Constitutional Constitutional ED: Denies chills or fever(s) Eyes Eyes: Denies blurry vision or change in vision ENT ENT ED: Denies rhinorrhea or sore throat Cardiovascular Cardiovascular: Denies chest pain or palpitations Respiratory/Chest Respiratory/Chest: Reports cough; Denies dyspnea Gastrointestinal Gastrointestinal: Denies nausea or vomiting Genitourinary Genitourinary ED: Denies dysuria or hematuria Musculoskeletal Musculoskeletal: Reports back pain; Denies neck pain Integumentary Denies abscess or rash Neurologic Neurologic: Denies headache(s) or weakness Allergic/Immunologic Allergic/Immunologic ED: Denies mouth swelling or urticaria EXAM Physical Exam Const Vital Signs: 10/08/24 08:26 10/08/24 10:46 Temperature 97.9 F Temperature Source Oral Pulse Rate 90 53 L Respiratory Rate 18 15 Blood Pressure 166/94 H 140/84 H Blood Pressure Mean 118 102 Pulse Ox 100 98 Oxygen Delivery Method Room Air Room Air Positive well nourished and well developed General Appearance ED: well developed and NAD HEENT Reports moist mucous membranes Neck supple and no JVD Resp normal respiratory effort and clear to auscultation bilaterally Cardio regular rate and regular rhythm GI non-tender and non-distended Palpation: soft Back/Spine General Back: CVA tenderness right Neuro CN's II-XII intact bilaterally, moves all extremities and no sensory deficits noted Sensorium / Orientation: alert Motor Exam: strength 5/5 throughout Psych mental status grossly normal MDM MDM MDM Narrative Medical decision making narrative: Differential diagnosis includes cholecystitis, cholelithiasis, ureteral calculus, pyelonephritis, pancreatitis, electrolyte abnormality, dehydration, gastroenteritis, and peptic ulcer disease. CBC will be obtained to assess for leukocytosis and anemia. Comprehensive metabolic profile will be obtained to assess for electrolyte abnormality renal function. Lipase will be obtained to assess for pancreatitis. Urinalysis will be obtained to assess for urinary tract infection and hematuria. CT scan of the abdomen and pelvis will be obtained to assess for ureteral calculus, bowel obstruction, and perforation. History & Record Review Additional record(s) reviewed:: Prior outpatient record, Prior ED visit and Prior labs Lab Data Attestation: I reviewed the patient's lab results. Lab results narrative: CBC was reviewed. There is a mild anemia with a hemoglobin of 11.6 and hematocrit 35.9. This is consistent with previous results. Comprehensive metabolic profile was reviewed. Glucose was mildly elevated at 191. BUN was slightly elevated at 32. The remainder is within normal limits. Lipase was reviewed and was normal at 35. Urinalysis was reviewed. There is no evidence of urinary tract infection or hematuria. Labs: Laboratory Results - last 24 hr 10/08/24 10/08/24 08:50 09:44 WBC 9.2 RBC 4.12 L Hgb 11.6 L Hct 35.9 L MCV 87.1 MCH 28.2 MCHC 32.3 RDW Std Deviation 40.5 RDW Coeff of Neena 13.1 Plt Count 244 MPV 10.6 Immature Gran % (Auto) 1.200 H Neut % (Auto) 74.8 H Lymph % (Auto) 17.4 L Brantley % (Auto) 6.3 Eos % (Auto) 0.1 Baso % (Auto) 0.2 Absolute Neuts (auto) 6.8 Absolute Lymphs (auto) 1.59 Nucleated RBC % 0 Sodium 140 Potassium 3.7 Chloride 104 Carbon Dioxide 23.2 Anion Gap 12 BUN 32 H Creatinine 0.94 Estim Creat Clear Calc 73.06 Est GFR (MDRD) Non-Af 68 BUN/Creatinine Ratio 34.1 H Glucose 191 H Calcium 9.0 Total Bilirubin 0.27 AST 16 ALT 17 Alkaline Phosphatase 60 Total Protein 6.5 Albumin 3.9 Globulin 2.6 Albumin/Globulin Ratio 1.5 Lipase 35 Urine Color Yellow Urine Clarity Clear Urine pH 6.0 Ur Specific [place] 1.015 Urine Protein Negative Urine Glucose (UA) Normal Urine Ketones Negative Urine Occult Blood Negative Urine Nitrite Negative Urine Bilirubin Negative Urine Urobilinogen Normal Ur Leukocyte Esterase 100 H Urine RBC 0 SEEN Urine WBC 0 SEEN Ur Squamous Epith Cells 0-5 SEEN Urine Bacteria 0 SEEN Urine Mucus 0 SEEN Radiography Diagnostic Testing: Clinical Impression(s) from Imaging Studies Abdomen/Pelvis CT 10/08/24 09:35 IMPRESSION: No suspicious solid organ abnormality, nonobstructing right nephrolithiasis No free intraperitoneal fluid, air, or suspicious adenopathy, normal appendix visualized Degenerative bony changes Reading Location: [facility] CT scan of the abdomen pelvis was obtained. There is no evidence of bowel obstruction or perforation. There is no free air or free fluid. There is no acute abnormality. There is a small stone in the right kidney. There is no obstructive uropathy noted. This was interpreted by the radiologist as also independently reviewed by myself. Treatment and Re-Evaluation :: Patient was given IV fluids, morphine, and Zofran. Patient was feeling better on reevaluation. Patient was advised of her findings. Patient was given a prescription for a short course of Melvin. Patient was instructed to use ice to her back. Patient was instructed to follow-up with her primary care physician in 5 to 7 days for further evaluation. Patient understood and was agreeable with the plan. All questions were answered. Discharge Plan Triage Chief Complaint: Abd Pain ED Provider: Tony Quintana Dx/Rx/DC Orders Clinical Impression: Right flank pain, Essential hypertension Instructions: ED Flank Pain, Uncertain Cause Prescriptions: New hydrocodone-acetaminophen 5-325 mg tablet 1 tab PO Q6H PRN PRN (Reason: Pain) 3 Days Qty: 10 0RF No Action potassium chloride 20 mEq tablet extended release 20 meq PO QDAY folic acid 1 mg tablet 2 mg PO QDAY pregabalin 75 mg capsule 75 mg PO TID prednisone 10 mg tablet 10 mg PO QDAY PRN tramadol 50 mg tablet 50 mg PO TID PRN leucovorin calcium 15 mg tablet 15 mg PO QWEEK methotrexate sodium 2.5 mg tablet 25 mg PO QWEEK levothyroxine 112 mcg tablet 125 mcg PO QDAY valsartan-hydrochlorothiazide 1 EACH tablet 1 ea PO DAILY metoprolol tartrate 25 mg tablet 25 mg PO BID Qty: 180 3RF celecoxib [Celebrex] 200 mg capsule 200 mg PO BID Qty: 30 0RF Rx Instructions: Do not take in conjunction with methotrexate without discussing with service center coordinator. Primary Care Provider: Win Matos Chi Referrals: Win Maots Chi, MD [Primary Care Provider] - 5-7 Days Print Language: German Disposition Disposition: Home, Self Care
--- OUTSIDE RECORDS SUMMARY | 2024-10-08 09:30 | XMS RPT_ITS | CCD ---
Author Organization [facility] Care Team Providers Care Primary Health Organisation Manager Name Role Phone RADHA MATOS Referring Unavailable RADHA MATOS Primary Care Unavailable HOWARD ESPARZA Attending Unavailable Dr. Win Matos Chi Primary Care Provider [phone] Carlo, Dr. Win Nieves Referring Provider Dr. Chaitanya Leblanc Attending Provider ANIL ORTEZ Attending Unavailable Dr. Ritesh Aguilar Attending Provider Dr. Papi Thomas Attending Provider 1([facility])-[phone] Win Matos Chi Primary Care Provider Carlo, Dr. Win Nieves Referring Provider Dr. Chaitanya Leblanc Attending Provider Dr. Ritesh Aguilar Attending Provider Dr. Papi Thomas Attending Provider Dr. Stiven Gunn Attending Provider Dr. Ashu Wilson Attending Provider [phone] Stiven Gunn Other Provider 1([facility])[phone] Stiven Gunn Admit Provider Dr. Barbara Vernon Other Provider Dr. Monty Hernández Other Provider [phone] Leidy Salazar Other Provider Dr. Leidy Glover Other Provider Dr. Scarlet Skinner Other Provider Unavailable Dr. America Thrasher Other Provider Dr. Bijal Robles Other Provider Dr. Jose Alberto Muhammad Other Provider UnavailDr. Jose Alberto Morrissey Other Provider Unavailable MD Del Vallejo Other Provider Dr. Tony Chino Other Provider Dr. Joe Jacobson Other Provider Dr. Abisai Chiu Other Provider Dr. Star Nazario Other Provider Dr. Shereen Camp Other Provider Dr. Jamil Perkins Other Provider Prabhu, Dr. Malina Islas Other Provider Dr. Louis Gilbert Attending Provider Dr. Louis Gilbert Other Provider Dr. Flo Perez Other Provider 1([facility])[phone] Lebron Malcolm Other Provider Dr. Amaya Dawn Other Provider Dr. Viet Heredia Other Provider [employer], [employer] Sonya Other Provider Neo Shah Other Provider Unavailable Dr. Win Matos Chi Primary Care Provider Dr. Win Matos Chi Referring Provider Unavailable Primary Care Provider UnavailDr. Win Cano MD, Chi Primary Care Provider [phone] Dr. Kristin Mckay MD Attending Provider Dr. Kristin Mckay MD Referring Provider Carlo RAM, Dr. Win Nieves Referring Provider Dr. Chaitanya Leblanc MD Attending Provider Carlo RAM, Dr. Win Nieves Attending Provider Dr. Abisai Roman DO Attending Provider Dr. Win Matos MD, Chi Primary Care Provider 1([facility] )[phone] Dr. Kristin Mckay MD Attending Provider Nely RAM, Dr. Foster Referring Provider King YO, Dr. Tavares Referring Provider Carlo RAM, Dr. Win Nieves Primary Care Provider Carlo RAM, Dr. Win Nieves Referring Provider [phone] King YO, Dr. Tavares Attending Provider Carlo RAM, Dr. Win Nieves Primary Care Provider [phone] Nely RAM, Dr. Foster Attending Provider Nely RAM, Dr. Foster Referring Provider Carlo RAM, Dr. Win Nieves Primary Care Provider Carlo RAM, Dr. Win Nieves Attending Provider Carlo RAM, Dr. Win Nieves Referring Provider Akilah RAM, Dr. Dinero Attending Provider Akilah RAM, Dr. Dinero Referring Provider Dr. Abisai Roman DO Attending Provider Carlo RAM, Dr. Win Nieves Other Provider Delfin RAM, Dr. Caldwell Attending Provider Delfin RAM, Dr. Caldwell Referring Provider Carlo, Win Chi Primary Care Unavailable Carlo, Win Chi Referring Unavailable Abisai Roman Attending Unavailable Carlo, Win Chi Primary Care Unavailable Carlo, Win Chi Referring Unavailable IsckarusBar Attending Unavailable Carlo, Win Chi Referring Unavailable Carlo, Win Chi Primary Care Unavailable IsckarusBar Attending Unavailable Carlo, Win Chi Primary Care Unavailable Carlo, Win Chi Referring Unavailable Abisai Roman Attending Unavailable Javi Lenz Referring Unavailabl e Javi Lenz Attending Unavailabl e Carlo, Win Chi Primary Care Unavailable Carlo, Win Chi Consulting Unavailable Carlo, Win Chi Primary Care Unavailable Isckarus, Mansour Referring Unavailable IsckarusBar Attending Unavailable RavilanKristin menon Attending Unavailable Carlo, Win Chi Primary Care Unavailable Vellanki, Kristin Referring Unavailable Carlo, Win Chi Primary Care Unavailable Vellanki, Kristin Attending Unavailable Vellanki, Kristin Referring Unavailable Carlo, Win Chi Primary Care Unavailable Vellanki, Kristin Referring Unavailable Vellanki, Kristin Attending Unavailable Carlo, Win Chi Primary Care Unavailable Carlo, Win Chi Referring Unavailable MyarusoAbisai Attending Unavailable Benji, Chaitanya Referring Unavailable Benji, Chaitanya Attending Unavailable Carlo, Win Chi Primary Care Unavailable Carlo, Win Chi Attending Unavailable Carlo, Win Chi Primary Care Unavailable Carlo, Win Chi Referring Unavailable Vellanki, Kristin Attending Unavailable Carlo, Win Chi Primary Care Unavailable Vellanki, Kristin Referring Unavailable Carlo, Win Chi Attending Unavailable Carlo, Win Chi Primary Care Unavailable Carlo, Win Chi Referring Unavailable Carlo, Win Chi Primary Care Unavailable Carlo, Win Chi Referring Unavailable MyarusoAbisai Attending Unavailable Carlo, Win Chi Primary Care Unavailable William Thomasril Attending Unavailable Carlo, Win Chi Primary Care Unavailable Carlo, Win Chi Referring Unavailable Benji, Chaitanya Attending Unavailable Carlo, Win Chi Referring Unavailable CareysoAbisai Attending Unavailable Carlo, Win Chi Primary Care Unavailable Carlo, Win Chi Referring Unavailable Carlo, Win Chi Attending Unavailable Carlo, Win Chi Primary Care Unavailable Vellanki, Kristin Attending Unavailable Carlo, Win Chi Primary Care Unavailable Vellanki, Kristin Referring Unavailable Allergies Allergy Classification Reported Allergen(s) Allergy Type Date of Onset Reaction(s) Facility (20 sources) Latex Allergy to substance 02-01-2021 Itching [facility] (1 source) Latex Drug allergy (disorder) 10-06-2024 [facility] Repository Medications Current Medications Medication Drug Class(es) Dates Sig (Normalized) Sig (Original) celecoxib 200 mg oral capsule (5 sources) Nonsteroidal Anti-inflammatory Drug Start: 09-01-2024 take 1 capsule by mouth twice daily Celecoxib (Celebrex) 200 mg capsule Active 200 mg PO TWICE A DAY 30 0 September 01, 2024 12:00am Do not take in conjunction with methotrexate without discussing with distribution operations supervisor. clobetasol propionate 0.5 mg/ml topical cream (1 source) Corticosteroid Start: 03-04-2017 clobetasol (TEMOVATE) 0.05 % cream Apply topically daily prn for flare ups 0 03/04/2017 Active diclofenac sodium 0.01 mg/mg topical gel (1 source) Nonsteroidal Anti-inflammatory Drug diclofenac (VOLTAREN) 1 % topical gel Apply 2 g to affected area. 0 Active estradiol 0.1 mg/ml vaginal cream (2 sources) Estrogen Start: 07-30-2023 estradiol (ESTRACE) 0.01 % (0.1 mg/gram) vaginal cream Use 1 g vaginally two times a week. 42.5 g 2 07/30/2023 Active End: 07-29-2023 estradiol (ESTRACE) 0.01 % ( 0.1 mg/gram) vaginal cream Use 2 g vaginally. 0 07/29/2023 Discontinued fluticasone propionate 0.05 mg/actuat metered dose nasal spray (1 source) Corticosteroid Start: 04-05-2023 fluticasone (FLONASE) 50 mcg/actuation nasal spray 2 Sprays once daily. 0 04/05/2023 Active folic acid 1 mg oral tablet (8 sources) Start: 03-19-2024 take 2 tablets by mouth once daily Folic Acid 1 mg tablet Active 2 mg PO daily March 19, 2024 1:00am hydroCHLOROthiazide 12.5 mg / valsartan 320 mg oral tablet (20 sources) Thiazide Diuretic, Angiotensin 2 Receptor Warren Start: 02-10-2023 take 1 tablet by mouth once Valsartan-hydroCH LOROthiazide 320-12.5 mg per tablet Take 1 tablet by mouth every afternoon. 0 02/10/2023 Active Start: 03-11-2018 Valsartan-Hydr ochlorothiazide 1 EACH tablet Active 1 NMA PO DAILY March 11, 2018 1:00am Start: 03-11-2018 Valsartan-Hydr ochlorothiazide Active 1 EACH PO DAILY March 11, 2018 1:00am leucovorin 15 mg oral tablet (8 sources) Folate Analog Start: 03-19-2024 take 1 tablet by mouth every week Leucovorin Calcium 15 mg tablet Active 15 mg PO EVERY WEEK March 19, 2024 1:00am levothyroxine sodium 0.112 mg oral tablet (20 sources) l-Thyroxine Start: 09-30-2024 Levothyroxine 112 mcg tablet Active 125 ug PO daily September 30, 2024 9:02am Start: 03-19-2024 End: 09-30-2024 take 1 tablet by mouth once daily Levothyroxine 112 mcg tablet Discontinued 112 ug PO daily 90 3 March 19, 2024 1:00am September 30, 2024 9:03am Start: 05-23-2022 End: 03-19-2024 take 1 tablet by mouth once daily Levothyroxine 125 mcg tablet Discontinued 125 ug PO DAILY 90 3 July 11, 2022 8:29am March 21, 2023 4:51pm Start: 10-22-2019 End: 05-23-2022 Levothyroxine 125 mcg tablet Discontinued 150 ug PO DAILY October 22, 2019 1:09pm May 23, 2022 3:52pm Start: 10-22-2019 End: 05-23-2022 take 150 ug by mouth once daily Levothyroxine Discontinued 150 MCG PO DAILY October 22, 2019 1:09pm May 23, 2022 3:52pm Start: 11-12-2018 End: 10-22-2019 take 1 tablet by mouth once daily Levothyroxine 125 mcg tablet Discontinued 125 ug PO DAILY November 12, 2018 12:00am October 22, 2019 1:12pm Start: 03-11-2018 End: 11-12-2018 take 1 tablet by mouth once daily Levothyroxine 150 MCG tablet Discontinued 150 ug PO DAILY March 11, 2018 1:00am November 12, 2018 4:00pm losartan potassium 100 mg oral tablet (1 source) Angiotensin 2 Receptor Warren Start: 09-27-2015 take 1 tablet by mouth once daily losartan (COZAAR) 100 mg tablet Take 1 tablet by mouth once daily. 90 tablet 1 09/27/2015 Active methotrexate 2.5 mg oral tablet (12 sources) Folate Analog Metabolic Inhibitor Start: 09-30-2024 Methotrexate Sodium 2.5 mg tablet Active 25 mg PO EVERY WEEK September 30, 2024 9:02am Start: 03-19-2024 End: 09-30-2024 Methotrexate Sodium 2.5 mg t ablet Discontinued 15 mg PO EVERY WEEK March 19, 2024 1:00am September 30, 2024 9:03am metoprolol tartrate 25 mg oral tablet (20 sources) beta-Adrenergic Warren Start: 04-05-2023 take 1 tablet by mouth every twelve hours metoprolol tartrate, short acting, (LOPRESSOR) 25 mg tablet Take 1 tablet by mouth every 12 hours. 0 04/05/2023 Active Start: 04-28-2018 End: 04-05-2021 take 1 tablet by mouth twice daily Metoprolol Tartrate 25 mg tablet Discontinued 25 mg PO TWICE A DAY 180 3 April 17, 2020 6:13pm April 05, 2021 3:05pm Start: 2018 End: 04-28-2018 Metoprolol Tartrate 25 mg ta blet Discontinued 12.5 mg PO TWICE A DAY 30 2018 1:00am April 28, 2018 11:15am Start: 2018 End: 04-28-2018 take 12.5 mg by mouth twice daily Metoprolol Tartrate Discontinued 12.5 MG PO TWICE A DAY 2018 1:00am April 28, 2018 11:15am naproxen 500 mg oral tablet (1 source) Nonsteroidal Anti-inflammatory Drug Start: 04-17-2023 take 1 tablet by mouth every twelve hours naproxen (NAPROSYN) 500 mg tablet Take 1 tablet by mouth every 12 hours. 0 04/17/2023 Active [place]-3 Fatty Acids (Fish Oil Concentrate) 1,000 mg capsule (20 sources) Start: 02-01-2021 take 1 capsule by mouth once daily [place]-3 Fatty Acids (Fish Oil Concentrate) 1,000 mg capsule Active 1000 MG PO DAILY February 01, 2021 4:04pm Start: 02-01-2021 End: 06-13-2023 take 1 capsule by mouth once daily [place]-3 Fatty Acids (Fish Oil Concentrate) 1,000 mg capsule Discontinued 1000 mg PO DAILY February 01, 2021 12:00am June 13, 2023 10:46am Start: 02-01-2021 End: 06-13-2023 take 1 capsule by mouth once daily [place]-3 Fatty Acids (Fish Oil Concentrate) 1,000 mg capsule Discontinued 1000 MG PO DAILY February 01, 2021 12:00am June 13, 2023 10:46am Start: 02-01-2021 take 1 capsule by mo uth once daily [place]-3 Fatty Acids (Fish Oil Concentrate) 1,000 mg capsule Active 1000 MG PO DAILY January 31, 2021 11:00pm Start: 02-01-2021 take 1 capsule by mo uth once daily [place]-3 Fatty Acids (Fish Oil Concentrate) 1,000 mg capsule Active 1000 MG PO DAILY February 01, 2021 12:00am Start: 2018 End: 11-12-2018 take 1 capsule by mouth once daily [place]-3 Fatty Acids (Fish Oil Concentrate) 1,000 mg capsule Discontinued 1000 MG PO DAILY 2018 4:55pm November 12, 2018 4:02pm Start: 2018 End: 11-12-2018 take 1 capsule by mouth once daily [place]-3 Fatty Acids (Fish Oil Concentrate) 1,000 mg capsule Discontinued 1000 mg PO DAILY 2018 1:00am November 12, 2018 4:02pm Start: 2018 End: 11-12-2018 take 1 capsule by mouth once daily [place]-3 Fatty Acids (Fish Oil Concentrate) 1,000 mg capsule Discontinued 1000 MG PO DAILY 2018 12:00am November 12, 2018 3:02pm Start: 2018 End: 11-12-2018 take 1 capsule by mouth once daily [place]-3 Fatty Acids (Fish Oil Concentrate) 1,000 mg capsule Discontinued 1000 MG PO DAILY 2018 1:00am November 12, 2018 4:02pm pantoprazole 40 mg delayed release oral tablet (20 sources) Proton Pump Inhibitor Start: 04-17-2023 take 1 tablet by mouth once pantoprazole DR (PROTONIX) 40 mg tablet Take 1 tablet by mouth every afternoon. 0 04/17/2023 Active Start: 06-05-2018 End: 06-07-2019 take 1 tablet by mouth once daily Pantoprazole 20 MG tablet Discontinued 20 mg PO DAILY 0 June 05, 2018 1:00am June 07, 2019 5:11pm potassium chloride 20 meq extended release oral tablet (20 sources) Start: 03-19-2024 take 1 tablet by mouth once daily Potassium Chloride 20 mEq tablet extended release Active 20 meq PO daily March 19, 2024 1:00am Start: 02-12-2023 End: 03-19-2024 take 1 capsule by mouth once daily Potassium Chloride 10 mEq capsule, extended release Discontinued 10 meq PO DAILY June 13, 2023 1:00am March 19, 2024 11:19am Start: 06-05-2020 End: 04-17-2023 take 1 tablet by mouth once daily Potassium Chloride 10 mEq tablet extended release Discontinued 10 meq PO DAILY 90 3 June 05, 2020 1:24pm April 17, 2023 9:08am Start: 11-12-2018 End: 10-22-2019 take 1 tablet by mouth once daily Potassium Chloride 10 mEq tablet extended release Discontinued 10 meq PO DAILY 90 3 February 12, 2019 11:46am October 22, 2019 1:11pm Start: 2018 End: 06-05-2018 take 1 capsule by mouth once daily Potassium Chloride 10 mEq capsule, extended release Discontinued 10 meq PO DAILY 30 2018 1:00am June 05, 2018 9:40am predniSONE 10 mg oral tablet (20 sources) Start: 03-19-2024 take 1 tablet by mouth once daily as needed Prednisone 10 mg tablet Active 10 mg PO daily as needed March 19, 2024 1:00am Start: 04-17-2023 predniSONE (DE LTASONE) 10 mg tablet take 3 tablets daily for 2 days then 2 tablets for 2 days then 1 tablet for 2 days then STOP 0 04/17/2023 Active Start: 04-10-2023 End: 06-24-2023 take 3 tablets by mouth once daily Prednisone 20 mg tablet Discontinued 60 mg PO DAILY 15 0 April 10, 2023 1:00am June 24, 2023 10:03am Start: 04-10-2023 End: 06-24-2023 take 60 mg by mouth once daily Prednisone Discontinued 60 MG PO DAILY April 10, 2023 1:00am June 24, 2023 10:03am pregabalin 75 mg oral capsule (9 sources) Start: 03-19-2024 take 1 capsule by mouth three times daily Pregabalin 75 mg capsule Active 75 mg PO THREE TIMES A DAY March 19, 2024 1:00am Start: 04-17-[address] [facility] every twelve hours pregabalin (LYRICA) 75 mg capsule Take 1 capsule by mouth every 12 hours. 0 04/17/2023 Active VIT/IRON FUMARATE/FA ( ORAL) (1 source) VIT/IRO N FUMARATE/FA ( ORAL) Take by mouth once daily. 0 Active traMADol hydrochloride 50 mg oral tablet (8 sources) Opioid Agonist Start: 03-19-2024 take 1 tablet by mouth three times daily as needed Tramadol 50 mg tablet Active 50 mg PO THREE TIMES A DAY as needed March 19, 2024 1:00am Completed/Discontinued Medications Medication Drug Class(es) Dates Sig (Normalized) Sig (Original) acetaminophen 500 mg oral tablet (20 sources) Start: 06-05-2018 End: 07-03-2020 take 2 tablets by mouth every eight hours as needed for pain Acetaminophen 500 MG tablet Discontinued 1000 mg PO EVERY 8 HOURS NEEDED as needed for Mild pain or fever (>99.6F) 0 June 05, 2018 1:00am July 03, 2020 3:10pm Start: 06-05-2018 End: 07-03-2020 take 1000 mg by mouth every eight hours as needed Acetaminophen Discontinued 1000 MG PO EVERY 8 HOURS NEEDED June 05, 2018 1:00am July 03, 2020 3:10pm acetaminophen 325 mg / HYDROcodone bitartrate 5 mg oral tablet (20 sources) Opioid Agonist Start: 01-29-2022 End: 05-01-2023 Hydrocodone-Acetaminophen 5- 325 mg tablet Discontinued 1 {tbl} PO EVERY 6 HOURS NEEDED as needed for Pain 10 3 0 April 10, 2023 May 01, 2023 3:49pm Left lumbosacral radiculopathy Low back pain Radiculopathy, lumbosacral region Low back pain, unspecified Start: 01-29-2022 End: 05-01-2023 take 1 tablet by mouth every six hours as needed Hydrocodone-Acetaminophen Discontinued 1 TABLET PO EVERY 6 HOURS NEEDED 10 3 April 10, 2023May 01, 2023 3:49pm acetaminophen 325 mg / oxyCODONE hydrochloride 5 mg oral tablet (12 sources) Opioid Agonist Start: 07-15-2023 End: 07-22-2023 Oxycodone-Acetaminophen 5-32 5 mg tablet Discontinued 1 {tbl} PO EVERY 6 HOURS as needed for pain 30 7 0 July 15, 2023 July 21, 2023 12:00am July 22, 2023 12:06am Status post laminectomy Other specified postprocedural states Start: 07-15-2023 End: 07-22-2023 take 1 tablet by mouth every six hours Oxycodone-Acetaminophen Discontinued 1 TABLET PO EVERY 6 HOURS 30 7 July 15, 2023 July 22, 2023 12:06am biotin 1 mg oral capsule (20 sources) Start: 11-12-2018 End: 10-22-2019 take 1 capsule by mouth once daily Biotin 1 mg capsule Discontinued 1 mg PO DAILY November 12, 2018 12:00am October 22, 2019 1:12pm BIOTIN ORAL Take by mouth once daily. 0 Active bisacodyl 5 mg delayed release oral tablet (11 sources) Stimulant Laxative Start: 07-19-2023 End: 07-22-2023 take 1 tablet by mouth twice daily as needed for constipation Bisacodyl (Dulcolax (Bisacodyl)) 5 mg tablet,delayed release (DR/EC) Discontinued 5 mg PO TWICE A DAY as needed for constipation 6 3 0 July 19, 2023 12:00am July 21, 2023 12:00am July 22, 2023 12:07am calcium carbonate 1500 mg oral tablet (20 sources) Start: 02-01-2021 End: 04-17-2023 take 1 tablet by mouth once daily Calcium Carbonate (Calcium 600) 600 mg calcium (1,500 mg) tablet Discontinued 600 mg PO DAILY February 01, 2021 12:00am April 17, 2023 9:07am [place] 4-Cug-Sxw-Fish Oil (12 sources) Start: 07-14-2023 End: 08-29-2023 [place] 5-Tdk-Sft-Fish Oil (Fish Oil) 300-1,000 mg capsule Discontinued 1 NMA PO DAILY July 14, 2023 12:00am August 29, 2023 10:54am Start: 07-14-2023 take 300-1000 mg by mouth once daily [place] 3-Pyb-Sto-Fish Oil (Fish Oil) 300-1,000 mg capsule Active 1 CAP PO DAILY July 14, 2023 12:00am docusate sodium 100 mg oral capsule (20 sources) Start: 06-05-2018 End: 11-12-2018 take 1 capsule by mouth twice daily as needed for constipation Docusate Sodium 100 MG capsule Discontinued 100 mg PO TWICE DAILY NEEDED as needed for Constipation 60 0 June 05, 2018 1:00am November 12, 2018 4:03pm ferrous sulfate 325 mg oral tablet (20 sources) Start: 08-29-2023 End: 09-30-2024 take 1 tablet by mouth once daily as needed Ferrous Sulfate 325 mg (65 mg iron) tablet Discontinued 325 mg PO DAILY as needed March 19, 2024 11:21am September 30, 2024 9:03am Start: 06-07-2019 End: 10-22-2019 take 1 tablet by mouth once daily Ferrous Sulfate (Slow Fe) 142 mg (45 mg iron) tablet extended release Discontinued 142 mg PO DAILY June 07, 2019 1:00am October 22, 2019 1:11pm gabapentin 100 mg oral capsule (20 sources) Anti-epileptic Agent Start: 12-31-2023 End: 03-19-2024 take 1 capsule by mouth twice daily Gabapentin 100 mg capsule Discontinued 100 mg PO TWICE A DAY December 31, 2023 12:00am March 19, 2024 11:21am Start: 06-13-2023 End: 06-24-2023 Gabapentin 100 mg capsule Di scontinued mg PO June 13, 2023 1:00am June 24, 2023 10:02am Start: 06-13-2023 End: 06-24-2023 Gabapentin Discontinued MG P O June 13, 2023 1:00am June 24, 2023 10:02am glucosamine 1000 mg oral tablet (20 sources) Start: 2018 End: 10-22-2019 take 1 tablet by mouth twice daily Glucosamine Sulfate 2kcl (Glucosamine Relief) 1,000 mg tablet Discontinued 1000 mg PO TWICE A DAY 2018 1:00am October 22, 2019 1:11pm ibuprofen 600 mg oral tablet (19 sources) Nonsteroidal Anti-inflammatory Drug Start: 01-29-2022 End: 04-17-2023 take 1 tablet by mouth every six hours as needed for pain Ibuprofen 600 mg tablet Discontinued 600 mg PO EVERY 6 HOURS NEEDED as needed for pain 20 0 January 29, 2022 12:00am April 17, 2023 9:07am Lactobacillus Combination No.9 (Adult 50 Plus Probiotic) 4 billion cell capsule (19 sources) Start: 03-15-2022 End: 04-17-2023 take 4 capsules by mouth once daily Lactobacillus Combination No.9 (Adult 50 Plus Probiotic) 4 billion cell capsule Discontinued 4000 NMA PO DAILY March 15, 2022 1:00am April 17, 2023 9:07am administer with a meal Start: 03-15-2022 End: 04-17-2023 take 4 capsules by mouth once daily Lactobacillus Combination No.9 (Adult 50 Plus Probiotic) 4 billion cell capsule Discontinued 4000 MMU CELLS PO DAILY March 15, 2022 1:00am April 17, 2023 9:07am administer with a meal Start: 03-15-2022 End: 04-17-2023 take 4 capsules by mouth once daily Lactobacillus Combination No.9 (Adult 50 Plus Probiotic) 4 billion cell capsule Discontinued 4000 MMU CELLS PO DAILY March 15, 2022 12:00am April 17, 2023 8:07am administer with a meal Start: 03-15-2022 take 4 capsules by m outh once daily Lactobacillus Combination No.9 (Adult 50 Plus Probiotic) 4 billion cell capsule Active 4000 MMU CELLS PO DAILY March 15, 2022 12:00am administer with a meal Start: 03-15-2022 take 4 capsules by m outh once daily Lactobacillus Combination No.9 (Adult 50 Plus Probiotic) 4 billion cell capsule Active 4000 MMU CELLS PO DAILY March 15, 2022 1:00am administer with a meal levocetirizine dihydrochloride 5 mg oral tablet (12 sources) Histamine-1 Receptor Antagonist Start: 06-24-2023 End: 07-14-2023 take 1 tablet by mouth once daily Levocetirizine 5 mg tablet Discontinued 5 mg PO DAILY June 24, 2023 12:00am July 14, 2023 9:47am magnesium citrate 58.2 mg/ml oral solution (11 sources) Start: 07-19-2023 End: 08-29-2023 take 1 mL by mouth every three hours Magnesium Citrate solution Discontinued 300 mL PO ONE TIME 1 July 19, 2023 12:00am August 29, 2023 10:53am Drink half bottle of magnesium citrate. If no relief in 3 hours, drink the remainder of the bottle. Start: 07-19-2023 take 1 mL by mouth e very three hours Magnesium Citrate Active 300 ML PO ONE TIME 1 July 19, 2023 12:00am Drink half bottle of magnesium citrate. If no relief in 3 hours, drink the remainder of the bottle. melatonin 5 mg oral capsule (12 sources) Start: 07-14-2023 End: 08-29-2023 take 1 capsule by mouth at bedtime as needed for sleep Melatonin 5 mg capsule Discontinued 5 mg PO AT BEDTIME as needed for sleep July 14, 2023 12:00am August 29, 2023 10:53am meloxicam 15 mg oral tablet (20 sources) Nonsteroidal Anti-inflammatory Drug Start: 11-29-2015 End: 06-13-2023 take 1 tablet by mouth once daily Meloxicam 15 MG tablet Discontinued 15 mg PO DAILY March 11, 2018 1:00am June 13, 2023 10:46am methylPREDNISolone acetate 40 mg/ml injectable suspension (1 source) Corticosteroid Start: 07-03-2020 End: 07-03-2020 Depo-Medrol (methylprednisol one acetate) 40 mg/mL suspension for injection Discontinued 40 MG INTRAARTIC ONCE 1 July 03, 2020 2:58pm July 03, 2020 3:32pm mirtazapine 7.5 mg oral tablet (8 sources) Start: 08-29-2023 End: 03-19-2024 take 1 tablet by mouth at bedtime Mirtazapine 7.5 mg tablet Discontinued 7.5 mg PO AT BEDTIME August 29, 2023 12:00am March 19, 2024 11:21am Eu-Oi-Stac-Zxhayga-D-Ox rb 333 (Alive Women's Ultra Potency) 18 mg-800 mcg DFE-150 mcg tablet (12 sources) Start: 06-24-2023 End: 03-19-2024 take 1 tablet by mouth once daily Rr-Uo-Tyrk-Mfola te-K-Herb 333 (Alive Women's Ultra Potency) 18 mg-800 mcg DFE-150 mcg tablet Discontinued 1 {tbl} PO DAILY June 24, 2023 12:00am March 19, 2024 11:22am Start: 06-24-2023 take 1 tablet by desiree once daily Fg-Zg-Mjef-Vjmxcmm-X-Wklh 333 (Alive Women's Ultra Potency) 18 mg-800 mcg DFE-150 mcg tablet Active 1 TABLET PO DAILY June 24, 2023 12:00am omeprazole 20 mg delayed release oral capsule (20 sources) Proton Pump Inhibitor Start: 03-11-2018 End: 09-30-2024 take 1 capsule by mouth once daily Omeprazole 20 MG capsule,delayed release(DR/EC) Discontinued 20 mg PO DAILY March 11, 2018 1:00am September 30, 2024 9:03am Start: 01-26-2015 take 1 capsule by mo [facility] twice daily omeprazole (PRILOSEC) 20 mg capsule TAKE 1 CAPSULE BY MOUTH TWICE DAILY. 180 capsule 3 01/26/2015 Active ondansetron 4 mg oral tablet (20 sources) Serotonin-3 Receptor Antagonist Start: 07-18-2023 End: 07-23-2023 take 1 tablet by mouth once daily as needed for nausea and vomiting Ondansetron Hcl 4 mg tablet Discontinued 4 mg PO DAILY as needed for nausea and vomiting 5 5 0 July 18, 2023 12:00am July 22, 2023 12:00am July 23, 2023 12:11am Start: 01-29-2022 End: 04-17-2023 take 1 tablet by mouth every eight hours as needed for nausea and vomiting Ondansetron 4 mg tablet,disintegrating Discontinued 4 mg PO Q8H as needed for nausea and vomiting 10 0 January 29, 2022 12:00am April 17, 2023 9:08am oxyCODONE hydrochloride 5 mg oral tablet (20 sources) Opioid Agonist Start: 06-05-2018 End: 06-12-2018 take 1 tablet by mouth every six hours as needed for pain Oxycodone 5 MG tablet Discontinued 5 mg PO EVERY 6 HOURS NEEDED as needed for Mod-Severe Pain (4-01/14) 12 7 0 June 05, 2018 9:41am June 11, 2018 1:00am June 12, 2018 1:09am History of hysterectomy Acquired absence of both cervix and uterus promethazine hydrochloride 25 mg oral tablet (11 sources) Phenothiazine Start: 07-19-2023 End: 08-29-2023 take 1 tablet by mouth three times daily as needed for nausea and vomiting Promethazine 25 mg tablet Discontinued 25 mg PO THREE TIMES A DAY as needed for nausea and vomiting 14 0 July 19, 2023 12:00am August 29, 2023 10:54am tamsulosin hydrochloride 0.4 mg oral capsule (19 sources) alpha-Adrenergic Warren Start: 01-29-2022 End: 04-17-2023 take 1 capsule by mouth once daily Tamsulosin (Flomax) 0.4 mg capsule Discontinued 0.4 mg PO DAILY 7 January 29, 2022 12:00am April 17, 2023 9:08am Problems Active Problems Problem Classification Problem Date Documented Da te Episodic/Chronic Calculus of urinary tract (19 sources) Ureteric stone; Translations: [Calculus of ureter] 02-06-2022 Episodic Cancer of thyroid (20 sources) Malignant tumor of thyroid gland; Translations: [Malignant neoplasm of thyroid gland] Onset: 07-08-2024 04-01-2022 Chronic Comment on above: Multifocal papillary carcinoma, 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 She is asymptomatic she denies any syncope or near syncope and EKG shows normal sinus rhythm with no active Coagulation and hemorrhagic disorders (9 sources) Easy bruising; Translations: [Spontaneous ecchymoses] Onset: 09-30-2024 09-30-2024 Episodic Comment on above: Age-related Coma; stupor; and brain damage (20 sources) Daytime somnolence; Translations: [Somnolence] 01-31-2021 Episodic Complications of surgical procedures or medical care (20 sources) Postoperative hypothyroidism; Translations: [Postprocedural hypothyroidism] Onset: 03-19-2024 04-01-2022 Chronic Essential hypertension (20 sources) Essential hypertension; Translations: [Essential (primary) hypertension] Onset: 08-02-2015 01-31-2021 Chronic Comment on above: Patient blood pressu re is well-controlled therapy. Menopausal disorders (20 sources) Postmenopausal bleeding; Translations: [Postmenopausal bleeding] 11-12-2018 Chronic Comment on above: d/t endometrial poly ps and submucosal fibroids Osteoarthritis (20 sources) Osteoarthritis of left knee joint; Translations: [Unilateral primary osteoarthritis, left knee] Onset: 10-04-2024 05-28-2024 Chronic Other acquired deformities (13 sources) Lumbar spondylolisthesis; Translations: [Spondylolisthesis, lumbar region] 05-01-2023 Episodic Other acquired deformities (1 source) Spondylolisthesis, lumbar region; Translations: [Acquired spondylolisthesis] 05-01-2023 Episodic Other connective tissue disease (13 sources) Synovial cyst of lumbar spine; Translations: [Other bursal cyst, other site] 05-01-2023 Episodic Other connective tissue disease (17 sources) Other bursal cyst, other site; Translations: [Synovial cyst, unspecified] 05-01-2023 Episodic Other female genital disorders (20 sources) Simple endometrial glandular hyperplasia without atypia; Translations: [Benign endometrial hyperplasia] 01-31-2021 Chronic Other gastrointestinal disorders (11 sources) Constipation; Translations: [Constipation, unspecified] 07-19-2023 Episodic Other nervous system disorders (20 sources) Peripheral nerve disease ; Translations: [Polyneuropathy, unspecified] 01-31-2021 Chronic Comment on above: feet and legs, nondi abetic Other nutritional; endocrine; and metabolic disorders (20 sources) Obesity; Translations: [Obesity, unspecified] 01-31-2021 Chronic Residual codes; unclassified (12 sources) H/O Spinal surgery; Translations: [Other specified postprocedural states] 07-14-2023 Episodic Residual codes; unclassified (5 sources) Other specified postprocedural states; Translations: [Other postprocedural status] 07-15-2023 Episodic Rheumatoid arthritis and related disease (1 source) Inflammatory polyarthropathy; Translations: [Inflammatory polyarthropathy] Onset: 09-07-2024 Chronic Spondylosis; intervertebral disc disorders; other back problems (20 sources) Lumbar radiculopathy; Translations: [Radiculopathy, lumbosacral region] Onset: 10-07-2024 04-10-2023 Episodic Past or Other Problems Problem Classification Problem Date Documented Da te Episodic/Chronic Other nervous system disorders (1 source) Skin sensation disturbance; Translations: [Unspecified disturbances of skin sensation] Onset: 04-09-2010 04-09-2010 Episodic Other non-traumatic joint disorders (1 source) Pain in right knee; Translations: [Pain in right knee] Onset: 12-31-2023 Episodic Other non-traumatic joint disorders (1 source) Pain in left knee; Translations: [Pain in left knee] Onset: 12-31-2023 Episodic Other screening for suspected conditions (not mental disorders or infectious disease) (1 source) Encounter for screening mammogram for malignant neoplasm of breast; Translations: [Encounter for screening mammogram for malignant neoplasm of breast] Onset: 06-01-2024 Episodic Results Test Name Value Interpretation Reference Range Facility Oncology Visit Reporton Oncology Visit Report [facility] [place] [address] OFFICE VISIT Date of Service: 10/06/24 1026 MR#: [id number] Acct: [id number] Name: GINETTE MACKENZIE Rep #: [id number] : 1960 From: Bar Isbell MD Age/Sex: 64/F [facility] [facility] Status: Signed HPI Subjective Date of Service 10/06/24 Chief Complaint Easy bruising History of Present Illness 64-year-old female who reports easy bruising with minor trauma over her forearms for the past 4 to 5 years. No other abnormal bleeding or bruising. She has not given to 4 children, regular dental work, a year earlier if she had a lumbar laminectomy for spinal canal stenosis, history of thyroid cancer status post thyroidectomy none of these hemostatic challenges with complicated by any abnormal bleeding. She is not on any blood thinners, she has been on Celebrex no other NSAIDs or aspirin for the past year. She is on methotrexate for rheumatoid disease but no history of thrombocytopenia. She uses pulses of oral prednisone when her rheumatoid arthritis flares. There is no family history of bleeding disorders [facility] Medical History (Updated 10/06/24 @ 10:[address] Bar Isbell MD) PONV (postoperative nausea and vomiting) Arthritis Easy bruising Back pain Gastric reflux Non-smoker Cardiology follow-up encounter Postoperative primary hypothyroidism Thyroid cancer COVID-19 virus detected (01/2020) Obesity Essential hypertension Endometrial hyperplasia without atypia, simple Daytime somnolence Peripheral neuropathy Bigeminy Premature ventricular contractions Postmenopausal bleeding Surgical History Status post laminectomy History of laparoscopic-assisted vaginal hysterectomy (06/04/18) [place] teeth extracted History of cervical polypectomy History of removal of neck cyst History of thyroid surgery Family History Unknown No problems noted. Social History adopted: Yes (does not know medical history) Smoking Status: Never smoker alcohol intake: never substance use type: does not use caffeine: No what type of physical activity do you participate in: other details: yard work ROS ROS Narrative C September 30, 2024 Intake Vital Signs 09/30/24 09:06 10/04/24 08:05 10/06/24 10:27 10/06/24 10:30 Height 5 ft 4 in 5 ft 4 in 5 ft 4 in 5 ft 4 in Weight: 110.393 kg BMI 41.8 BP 133/86 H Blood Pressure Location Lt brachial Position Sitting Respiration 16 Pulse 65 Pulse Source Monitor Temp 98.4 F Temperature Source Temporal Artery Pulse Oximetry (%) 96 Oxygen Delivery Method room air Intake Is patient in pain?: Yes (back pain ) Pain scale (1-10): 2 Allergies latex Allergy (Verified 10/06/24 10:29) Itching Medications ???Medication ???Instructions ???Recorded ???Confirmed ???Type valsartan 320 1 ea PO DAILY 03/11/18 10/06/24 Hi story mg-hydrochlorothiazide 12.5 mg tablet metoprolol tartrate 25 mg tablet 25 mg PO BID #180 tabs 04/05/21 Rx folic acid 1 mg tablet 2 mg PO QDAY 03/19/24 10/06/24 His tory leucovorin calcium 15 mg tablet 15 mg PO QWEEK 03/19/24 10/06/24 H istory potassium chloride 20 mEq 20 meq PO QDAY 03/19/24 10/06/24 H istory tablet,extended release prednisone 10 mg tablet 10 mg PO QDAY PRN 03/19/24 5 History pregabalin 75 mg capsule 75 mg PO TID 03/19/24 10/06/24 His tory tramadol 50 mg tablet 50 mg PO TID PRN 03/19/24 10/06/24 History celecoxib 200 mg capsule (Celebrex) 200 mg PO BID #30 caps 09/01/24 10/06/24 Rx levothyroxine 112 mcg tablet 125 mcg PO QDAY 09/30/24 10/06/24 History methotrexate sodium 2.5 mg tablet 25 mg PO QWEEK 09/30/24 10/06/24 History Have you fallen in the past year?: No Central Venous Access Central Venous Access: No Laboratory Tests 01/22/18 03/12/18 05/28/18 15:52 17:17 17:44 Plt Count PT 12.5 12.8 12.3 APTT 28.1 27.6 25.8 12/30/22 06/25/23 02/28/24 15:52 15:59 08:58 Plt Count 237 246 PT 12.7 APTT 24.5 09/02/24 09/30/24 09:23 09:34 Plt Count 278 236 PT 12.8 APTT 26.1 Exam Physical Exam Const alert and oriented x3 Nutritional Appearance: overweight Skin Skin Narrative: Forearms General Skin Exam: ecchymosis; Negative for purpura Coding Level of Care Code Off vis,est,level 3 Exam Problem Focused Diagnoses Easy bruising R23.3 Assessment and Plan Assessment and Plan (1) Easy bruising: Status: Chronic Comment: Age-related Plan 64-year-old female who reports easy bruising with minor trauma over her forearms for the past 4 to 5 years. N (more content not included)... [facility] L/S Spine Min 4 Viewson L/S Spine Min [address] [facility] Imaging Services [address] [place], [place] [address] L/S Spine Min 4 Views MR#: [id number] Acct: [id number] Name: GINETTE MACKENZIE Rep #: [id number] : 1960 F 64 From: Jorge Kendall MD PCP: Dr. Win Matos MD Status: REG CLI Study: L/S Spine Min 4 Views Date of Exam: 10/05/24 Exam# [id number] Ordering Dr: Javi Lenz MD PROCEDURE: L/S SPINE MIN 4 VIEWS 10/05/2024 REASON FOR EXAM: MUSCLE SPASM OF BACK, LOW BACK PAIN TECHNIQUE: L/S SPINE MIN 4 VIEWS COMPARISON: No FINDINGS: Diffuse facet arthritis most pronounced L3 through S1. Relative disc space preservation. Grade 1 anterolisthesis L4 on L5. No acute bone or soft tissue pathology. RAD/L/S Spine Min 4 Views IMPRESSION: Lumbar spine degeneration Reading Location: [facility] CC: Dr. Javi Lenz MD; Dr. Win Matos MD Marketing Proposal Specialist: Signed [facility] Sinus/Facial Boneon 10-06-19 Sinus/Facial Bone [facility] Imaging Services [address] [place] [address] Sinus/Facial Bone MR#: [id number] Acct: [id number] Name: GINETTE MACKENZIE Rep #: [id number] : 1960 F 64 From: Jose Alberto Rome PCP: Dr. Win Matos MD Status: REG CLI Study: Sinus/Facial Bone Date of Exam: 10/05/24 Exam# [id number] Ordering Dr: Javi Lenz MD PROCEDURE: SINUS/FACIAL BONE 10/05/2024 REASON FOR EXAM: CYST AND MUCOCELE OF NOSE AND NASAL SINUS TECHNIQUE: SINUS/FACIAL BONE Coronal and Sagittal reconstruction series were provided. One or more dose reduction techniques were used (e.g., Automated exposure control, adjustment of the mA and/or kV according to patient size, use of iterative reconstruction technique). RADIATION DOSE SUMMARY: CTDlvol: 29.38 mGy DLP: 731.11 mGycm COMPARISON: None. FINDINGS: [id number] degenerative changes of the visualized portions of the cervical spine. Mild anterior subluxation of C4 upon C5 is also noted. Mild mucosal thickening is seen of the bilateral ethmoid maxillary sinuses. Minimal mucosal thickening is seen of the right sphenoid sinus. No air-fluid level is noted. The remaining paranasal sinuses appear clear. No ostial obstruction is evident on either side. No significant degree nasal septal deviation is noted. No nasal mass is identified. Mastoids/Middle Ears: Extensive partial opacification of right mastoid air cells is seen, of uncertain chronicity. Left mastoid air cells appear clear. No osseous destructive change is seen. No orbital pathology is evident. CT/Sinus/Facial Bone IMPRESSION: 1. Mild chronic appearing paranasal sinus disease. 2. Additional findings as noted. Reading Location: [place] [address] CC: Dr. Javi Lenz MD; Dr. Win Matos MD Marketing Proposal Specialist: Signed [facility] Orthopedic Visit Reporton Orthopedic Visit Report [facility] [address] [place] [address] OFFICE VISIT Date of Service: 10/04/24 MR#: [id number] Acct: [id number] Name: GINETTE MACKENZIE Rep #: [id number] : 1960 Provider: Dr. Abisai neil DO Age/Sex: 64/F [place] [facility] Status: Signed Intake Vital Signs 09/30/24 09:06 10/04/24 08:05 Height 5 ft 4 in 5 ft 4 in Weight: 240 lb BMI 41.1 Intake Visit Reasons: BL KNEES Chief Complaint: 1st Euflexxa bilateral knee injection Accompanied by: Is patient in pain?: Yes Pain scale (1-10): 7 Allergies latex Allergy (Verified 10/04/24 08:11) Itching Medications ???Medication ???Instructions ???Recorded ???Confirmed ???Type valsartan 320 1 ea PO DAILY 03/11/18 10/04/24 Hi story mg-hydrochlorothiazide 12.5 mg tablet metoprolol tartrate 25 mg tablet 25 mg PO BID #180 tabs 04/05/21 Rx folic acid 1 mg tablet 2 mg PO QDAY 03/19/24 10/04/24 His tory leucovorin calcium 15 mg tablet 15 mg PO QWEEK 03/19/24 10/04/24 H istory potassium chloride 20 mEq 20 meq PO QDAY 03/19/24 10/04/24 H istory tablet,extended release prednisone 10 mg tablet 10 mg PO QDAY PRN 03/19/24 5 History pregabalin 75 mg capsule 75 mg PO TID 03/19/24 10/04/24 His tory tramadol 50 mg tablet 50 mg PO TID PRN 03/19/24 10/04/24 History celecoxib 200 mg capsule (Celebrex) 200 mg PO BID #30 caps 09/01/24 10/04/24 Rx levothyroxine 112 mcg tablet 125 mcg PO QDAY 09/30/24 10/04/24 History methotrexate sodium 2.5 mg tablet 25 mg PO QWEEK 09/30/24 10/04/24 History Have you fallen in the past year?: No PFSH Medical History (Updated 10/04/24 @ 09:[address] Abisai Roman DO) PONV (postoperative nausea and vomiting) Arthritis Easy bruising Back pain Gastric reflux Non-smoker Cardiology follow-up encounter Postoperative primary hypothyroidism Thyroid cancer COVID-19 virus detected (01/2020) Obesity Essential hypertension Endometrial hyperplasia without atypia, simple Daytime somnolence Peripheral neuropathy Bigeminy Premature ventricular contractions Postmenopausal bleeding Surgical History Status post laminectomy History of laparoscopic-assisted vaginal hysterectomy (06/04/18) [place] teeth extracted History of cervical polypectomy History of removal of neck cyst History of thyroid surgery Family History Unknown No problems noted. Social History adopted: Yes (does not know medical history) Smoking Status: Never smoker alcohol intake: never substance use type: does not use caffeine: No what type of physical activity do you participate in: other details: yard work HPI BL KNEES Details: This documentation accurately reflects the service provided and the decisions made by me, Dr. Abisai Roman, DO 10/04/24 0800. Part of today???s visit was documented by Sanaz Patterson MA, acting as scribe. GINETTE MACKENZIE is a 64 year old F here today for 1st Euflexxa bilateral knee injection. She would also like to do bilateral knee steroid injections. 05/28/24: bilateral knee injections. 12/31/23: here today for bilateral knee pain. She has had an injection in both knees before but it has been while. Her knee pain has been bad for most of the summer but is getting worse over time. She does take Ibuprofen 800mg. She has tried meloxicam in the past but it doesn't help with her pain. plan: Educated patient on anatomy and etiology of both knees. Discussed patient that her xrays show severe arthritis in both knees. Advised patient that when taking the Ibuprofen 800mg she can take 100mg of Tylenol 4 times a day. Spoke with patient that her treatment options are do nothing, steroid injection, viscosupplementation injections or a TKA. Patient wishes to proceed with steroid injections today. Discussed with patient that she would need to lose 10 pounds before being a candidate for a total knee replacement. Follow up as needed or sooner if pain, swelling, numbness or associated symptoms, or concerns develop. All questions answered. Patient in agreement of plan. Ortho Exam General General: Yes no acute distress and Yes well groomed Neurologic: Yes alert and Yes oriented x3 Psychologic: Yes reasonable and appropriate Right Knee Skin/Wound: Yes CDI, No erythema, No ecchymosis and No swelling Homans Sign: No Knee ROM: Yes ROM-Extension -20 to 0 (-5) and Yes ROM-Flexion 0-140 (85) Examination: Yes Med jt line tenderness and Yes Lat jt line tenderness Stability: NML: Anterior Drawer and 1+: Valgus 0 (Due to medial joint space narrowing) and 1+: Valgus 30 [place] Translation: 1 (more content not included)... [facility] Absolute lymphocyte countOrd ered By: [facility] on 09-30-2024 Lymphocytes Auto (Unsp spec) [#/Vol] 1.37 10*3/uL 0.83-4.51 [facility] Absolute neutrophil countOrd ered By: [facility] 09-30-2024 Neutrophils (Bld) [#/Vol] 3.6 10*3/uL 2.0-7.7 [facility] Activated partial thrombopla stin time (aPTT) in platelet poor plasma by coagulation aOrdered By: [facility] on 09-30-2024 aPTT Coag (PPP) [Time] 26.1 s 24.1-36.2 [facility] Automated lymphocyte count a s percentage of total leukocytesOrdered By: [facility] on 09-30-2024 Lymphocytes/100 WBC Auto (Unsp spec) 24.0 % 19-41 [facility] Basophil percentageOrdered B y: [facility] on 09-30-2024 Basophils/100 WBC (Bld) 0.9 % 0-1 [facility] CBC W/Diff, Automatedon 09-06 Absolute Lymph 1.37 X10 3/uL Normal 0.83-4.51 [facility] Comment on above: Performed By: #### L 300.4310, L300.3900, L100.0100 #### [facility] [address] [place], [address] Absolute Neut 3.6 X10 3/uL Normal 2.0-7.7 [facility] Comment on above: Performed By: #### L 300.4310, L300.3900, L100.0100 #### [facility] [address] [place], [address] Basophils/100 WBC (Bld) 0.9 % Normal 0-1 [facility] Comment on above: Performed By: #### L 300.4310, L300.3900, L100.0100 #### [facility] [address] [place], [address] Eosinophils/100 WBC (Bld) 2.8 % Normal 0-5 [facility] Comment on above: Performed By: #### L 300.4310, L300.3900, L100.0100 #### [facility] [address] [place], [address] Erythrocyte distribution width (RBC) [Ratio] 12.7 % Normal 11.6-14.6 [facility] Comment on above: Performed By: #### L 300.4310, L300.3900, L100.0100 #### [facility] [address] [place], [address] Hematocrit (Bld) [Volume fraction] 38.4 % Normal 37-47 [facility] Comment on above: Performed By: #### L 300.4310, L300.3900, L100.0100 #### [facility] [address] [place], [address] Hemoglobin (Bld) [Mass/Vol] 12.7 g/dL Normal 12.0-15.0 [facility] Comment on above: Performed By: #### L 300.4310, L300.3900, L100.0100 #### [facility] [address] [place], [address] IG% 0.400 Normal 0.0-0.9 [facility] Comment on above: Result Comment: IG% - Immature Granulocytes (promyelocytes, myelocytes and metamyelocytes) > 1% indicates that a LEFT SHIFT is Present. Performed By: #### L 300.4310, L300.3900, L100.0100 #### [facility] [address] [place], [address] Lymphocytes/100 WBC (Bld) 24.0 % Normal 19-41 [facility] Comment on above: Performed By: #### L 300.4310, L300.3900, L100.0100 #### [facility] [address] [place], [address] MCH (RBC) [Entitic mass] 28.6 pg Normal 27.0-32.0 [facility] Comment on above: Performed By: #### L 300.4310, L300.3900, L100.0100 #### [facility] [address] [place], [address] MCHC (RBC) [Mass/Vol] 33.1 g/dL Normal 32-36 [facility] Comment on above: Performed By: #### L 300.4310, L300.3900, L100.0100 #### [facility] [address] [place], [address] MCV (RBC) [Entitic vol] 86.5 fL Normal 81-99 [facility] Comment on above: Performed By: #### L 300.4310, L300.3900, L100.0100 #### [facility] [address] [place], [address] Monocytes/100 WBC (Bld) 9.1 % Normal 0-10 [facility] Comment on above: Performed By: #### L 300.4310, L300.3900, L100.0100 #### [facility] [address] [place], [address] Neutrophils/100 WBC (Bld) 62.8 % Normal 47-70 [facility] Comment on above: Performed By: #### L 300.4310, L300.3900, L100.0100 #### [facility] [address] [place], [address] Nucleated RBC (Bld) [#/Vol] 0 10*3/uL Normal 0-5 [facility] Comment on above: Performed By: #### L 300.4310, L300.3900, L100.0100 #### [facility] [address] [place], [address] Platelet mean volume (Bld) [Entitic vol] 9.9 fL Normal 6.2-12.0 [facility] Comment on above: Performed By: #### L 300.4310, L300.3900, L100.0100 #### [facility] [address] [place], [address] Platelets (Bld) [#/Vol] 236 10*3/uL Normal 150-450 [facility] Comment on above: Performed By: #### L 300.4310, L300.3900, L100.0100 #### [facility] [address] [place], [address] RBC (Bld) [#/Vol] 4.44 10*6/uL Normal 4.2-5.4 [facility] Comment on above: Performed By: #### L 300.4310, L300.3900, L100.0100 #### [facility] [address] [place], [address] RDW SD 39.7 fl Normal 35.1-43.9 [facility] Comment on above: Performed By: #### L 300.4310, L300.3900, L100.0100 #### [facility] [address] [place], [address] WBC (Bld) [#/Vol] 5.7 10*3/uL Normal 4.4-11.0 [facility] Comment on above: Performed By: #### L 300.4310, L300.3900, L100.0100 #### [facility] [address] [place], [address] Eosinophil percentageOrdered By: [facility] on 09-30-2024 Eosinophils/100 WBC (Bld) 2.8 % 0-5 [facility] Erythrocyte distribution wid th ratioOrdered By: [facility] on 09-30-2024 Erythrocyte distribution width (RBC) [Ratio] 12.7 % 11.6-14.6 [facility] Erythrocyte distribution wid th standard deviationOrdered By: [facility] on 09-30-2024 Erythrocyte distribution width (RBC) [Ratio] 39.7 fl 35.1-43.9 [facility] Hematocrit Auto (Bld) [Volum e fraction]Ordered By: [facility] on 09-30-2024 Hematocrit (Bld) [Volume fraction] 38.4 % 37-47 [facility] Hemoglobin measurementOrdere d By: [facility] on 09-30-2024 Hemoglobin (Bld) [Mass/Vol] 12.7 g/dL 12.0-15.0 [facility] Immature granulocytes/100 WB C Auto (Bld)Ordered By: [facility] on 09-30-2024 Immature granulocytes/100 WBC (Bld) 0.400 % 0.0-0.9 [facility] Comment on above: IG% - Immature Granu locytes (promyelocytes, myelocytes and metamyelocytes) > 1% indicates that a LEFT SHIFT is Present. International normalized rat io (INR) calculationOrdered By: [facility] on 09-30-2024 INR Coag (Bld) [Relative time] 0.9 {INR} [facility] MCV (mean corpuscular volume ) determinationOrdered By: [facility] on 09-30-2024 MCV (RBC) [Entitic vol] 86.5 fL 81-99 [facility] Mean corpuscular hemoglobin (MCH) determinationOrdered By: Bar Isbell on 09-30-2024 MCH (RBC) [Entitic mass] 28.6 pg 27.0-32.0 [facility] Mean corpuscular hemoglobin concentration (MCHC) determinationOrdered By: Bar Isbell on 09-30-2024 MCHC (RBC) [Mass/Vol] 33.1 g/dL 32-36 [facility] Mean platelet volume determi nationOrdered By: Bar Isbell on 09-30-2024 Platelet mean volume (Bld) [Entitic vol] 9.9 fL 6.2-12.0 [facility] Monocyte percentageOrdered B y: Bar Isbell on 09-30-2024 Monocytes/100 WBC (Bld) 9.1 % 0-10 [facility] Neutrophil percentageOrdered By: Bar Isbell on 09-30-2024 Neutrophils/100 WBC (Bld) 62.8 % 47-70 [facility] Nucleated red blood cell per centageOrdered By: Bar Isbell on 09-30-2024 Nucleated RBC/100 WBC (Bld) [Ratio] 0 % 0-5 [facility] Oncology Visit Reporton 09-06 Oncology Visit Report [facility] [address] [place] [address] OFFICE VISIT Date of Service: 09/30/2458 MR#: [id number] Acct: [id number] Name: GINETTE MACKENZIE Rep #: [id number] : 1960 From: Bar Isbell MD Age/Sex: 64/F Location: [facility] Status: Signed HPI Subjective Date of Service 10/06/24 Chief Complaint Easy bruising History of Present Illness 64-year-old female who reports easy bruising with minor trauma over her forearms for the past 4 to 5 years. No other abnormal bleeding or bruising. She has not given to 4 children, regular dental work, a year earlier if she had a lumbar laminectomy for spinal canal stenosis, history of thyroid cancer status post thyroidectomy none of these hemostatic challenges with complicated by any abnormal bleeding. She is not on any blood thinners, she has been on Celebrex no other NSAIDs or aspirin for the past year. She is on methotrexate for rheumatoid disease but no history of thrombocytopenia. She uses pulses of oral prednisone when her rheumatoid arthritis flares. There is no family history of bleeding disorders [facility] Medical History (Updated 09/30/24 @ 09:[address] Bar Isbell MD) PONV (postoperative nausea and vomiting) Arthritis Easy bruising Back pain Gastric reflux Non-smoker Cardiology follow-up encounter Postoperative primary hypothyroidism Thyroid cancer COVID-19 virus detected (01/2020) Obesity Essential hypertension Endometrial hyperplasia without atypia, simple Daytime somnolence Peripheral neuropathy Bigeminy Premature ventricular contractions Postmenopausal bleeding Surgical History Status post laminectomy History of laparoscopic-assisted vaginal hysterectomy (06/04/18) [place] teeth extracted History of cervical polypectomy History of removal of neck cyst History of thyroid surgery Family History Unknown No problems noted. Social History adopted: Yes (does not know medical history) Smoking Status: Never smoker alcohol intake: never substance use type: does not use caffeine: No what type of physical activity do you participate in: other details: yard work ROS Constitutional Constitutional: Reports systems reviewed and no addt'l complaints, except as documented Eyes Eyes: Reports systems reviewed and no addt'l complaints, except as documented ENT HEENT: Reports systems reviewed and no addt'l complaints, except as documented, epistaxis and other Details: Very infrequent minor epistaxis and dry winter air when the wood burner on and gum bleed when she brushes her teeth overzealously. Cardiovascular Cardiovascular: Reports systems reviewed and no addt'l complaints, except as documented Respiratory/Chest Respiratory/Chest: Reports systems reviewed and no addt'l complaints, except as documented; Denies hemoptysis Genitourinary Genitourinary: Reports systems reviewed and no addt'l complaints, except as documented and other Details: No vaginal bleeding or spotting ; Denies hematuria Musculoskeletal Musculoskeletal: Reports systems reviewed and no addt'l complaints, except as documented, joint pain, joint stiffness, limited range of motion and other Details: Never has joint or soft tissue bleeding Integumentary Integumentary: Reports systems reviewed and no addt'l complaints, except as documented and as per HPI Neurologic Neurologic: Reports systems reviewed and no addt'l complaints, except as documented; Denies focal weakness Psychiatric Psychiatric: Reports systems reviewed and no addt'l complaints, except as documented Endocrine Endocrinology: Reports systems reviewed and no addt'l complaints, except as documented Hematologic/Lymphatic Hematologic/Lymphatic: Reports systems reviewed and no addt'l complaints, except as documented, as per HPI, easy bruising and other Details: Easy bruising forearms only, no lower extremities or trunk Allergic/Immunologic Allergic/Immunologic: Reports systems reviewed and no addt'l complaints, except as documented Intake Vital Signs 03/19/24 10:15 09/30/24 09:04 09/30/24 09:06 Height 5 ft 4 in 5 ft 4 in 5 ft 4 in Weight: 108.976 kg BMI 41.2 BP 106/72 Blood Pressure Location Lt brachial Position Sitting Respiration 18 Pulse 87 Pulse Source Monitor Temp 98.1 F Temperature Source Temporal Artery Pulse Oximetry (%) 94 Oxygen Delivery Method room air Intake Is patient in pain?: Yes (back and bilateral knee pain) Pain scale (1-10): 5 Allergies latex Allergy (Verified 09/30/24 09:01) Itching Medications ???Medication ???Instructions ???Recorded ???Confirmed ???Type valsartan 320 (more content not included)... Normal [facility] Partial Thromboplast Timeon 09-30-2024 aPTT Coag (Bld) [Time] 26.1 s Normal 24.1-36.2 [facility] Comment on above: Performed By: #### L 300.4310, L300.3900, L100.0100 #### [facility] [address] [place], [address] Platelet countOrdered By: Darrell Isbell on 09-30-2024 Platelets (Bld) [#/Vol] 236 10*3/uL 150-450 [facility] Prothrombin Time w/INRon INR Coag (PPP) [Relative time] 0.9 {INR} Normal [facility] Comment on above: Performed By: #### L 300.4310, L300.3900, L100.0100 #### [facility] [address] [place], [address] PT Coag (PPP) [Time] 12.8 s Normal 11.7-14.9 [facility] Comment on above: Performed By: #### L 300.4310, L300.3900, L100.0100 #### [facility] [address] [place], [address] Prothrombin timeOrdered By: Bar Isbell on 09-30-2024 PT Coag (PPP) [Time] 12.8 s 11.7-14.9 [facility] RBC Auto (Bld) [#/Vol]Ordere d By: Bar Isbell on 09-30-2024 RBC (Bld) [#/Vol] 4.44 10*6/uL 4.2-5.4 [facility] White blood cell (WBC) count Ordered By: Bar Isbell on 09-30-2024 WBC (Bld) [#/Vol] 5.7 10*3/uL 4.4-11.0 [facility] Absolute lymphocyte countOrd ered By: Kristin Mckay on 09-02-2024 Lymphocytes Auto (Unsp spec) [#/Vol] 1.26 10*3/uL 0.83-4.51 [facility] Absolute neutrophil countOrd ered By: Kristin Mckay on 09-02-2024 Neutrophils (Bld) [#/Vol] 2.9 10*3/uL 2.0-7.7 [facility] Anion gap in Serum or Plasma Ordered By: Kristin Mckay on 09-02-2024 Anion gap [Moles/Vol] 11 mmol/L 5-15 [facility] Automated lymphocyte count a s percentage of total leukocytesOrdered By: Kristin Mckay on 09-02-2024 Lymphocytes/100 WBC Auto (Unsp spec) 25.4 % 19-41 [facility] BUN/creatinine ratioOrdered By: Kristin Mckay on 09-02-2024 Urea nitrogen/Creatinine [Mass ratio] 22.0 mg/mg High 10-20 [facility] Basophil percentageOrdered B y: Kristin Mckay on 09-02-2024 Basophils/100 WBC (Bld) 1.2 % High 0-1 [facility] Bilirubin, totalOrdered By: Kristin Mckay on 09-02-2024 Bilirubin [Mass/Vol] 0.38 mg/dL 0.00-1.30 [facility] CBC W/Diff, Automatedon 08-06 Absolute Lymph 1.26 X10 3/uL Normal 0.83-4.51 [facility] Comment on above: Performed By: #### L 100.0100, L500.4050 #### [facility] [address] [place], [address] Absolute Neut 2.9 X10 3/uL Normal 2.0-7.7 [facility] Comment on above: Performed By: #### L 100.0100, L500.4050 #### [facility] [address] [place], [address] Basophils/100 WBC (Bld) 1.2 % High 0-1 [facility] Comment on above: Performed By: #### L 100.0100, L500.4050 #### [facility] [address] [place], [address] Eosinophils/100 WBC (Bld) 2.8 % Normal 0-5 [facility] Comment on above: Performed By: #### L 100.0100, L500.4050 #### [facility] [address] [place], [address] Erythrocyte distribution width (RBC) [Ratio] 12.9 % Normal 11.6-14.6 [facility] Comment on above: Performed By: #### L 100.0100, L500.4050 #### [facility] [address] [place], [address] Hematocrit (Bld) [Volume fraction] 37.1 % Normal 37-47 [facility] Comment on above: Performed By: #### L 100.0100, L500.4050 #### [facility] [address] [place], [address] Hemoglobin (Bld) [Mass/Vol] 12.4 g/dL Normal 12.0-15.0 [facility] Comment on above: Performed By: #### L 100.0100, L500.4050 #### [facility] [address] [place], [address] IG% 0.400 Normal 0.0-0.9 [facility] Comment on above: Result Comment: IG% - Immature Granulocytes (promyelocytes, myelocytes and metamyelocytes) > 1% indicates that a LEFT SHIFT is Present. Performed By: #### L 100.0100, L500.4050 #### [facility] [address] [place], [address] Lymphocytes/100 WBC (Bld) 25.4 % Normal 19-41 [facility] Comment on above: Performed By: #### L 100.0100, L500.4050 #### [facility] [address] [place], [address] MCH (RBC) [Entitic mass] 29.2 pg Normal 27.0-32.0 [facility] Comment on above: Performed By: #### L 100.0100, L500.4050 #### [facility] [address] [place], [address] MCHC (RBC) [Mass/Vol] 33.4 g/dL Normal 32-36 [facility] Comment on above: Performed By: #### L 100.0100, L500.4050 #### [facility] [address] [place], [address] MCV (RBC) [Entitic vol] 87.3 fL Normal 81-99 [facility] Comment on above: Performed By: #### L 100.0100, L500.4050 #### [facility] [address] [place], [address] Monocytes/100 WBC (Bld) 11.5 % High 0-10 [facility] Comment on above: Performed By: #### L 100.0100, L500.4050 #### [facility] [address] [place], [address] Neutrophils/100 WBC (Bld) 58.7 % Normal 47-70 [facility] Comment on above: Performed By: #### L 100.0100, L500.4050 #### [facility] [address] [place], [address] Nucleated RBC (Bld) [#/Vol] 0 10*3/uL Normal 0-5 [facility] Comment on above: Performed By: #### L 100.0100, L500.4050 #### [facility] [address] [place], [address] Platelet mean volume (Bld) [Entitic vol] 10.8 fL Normal 6.2-12.0 [facility] Comment on above: Performed By: #### L 100.0100, L500.4050 #### [facility] [address] [place], [address] Platelets (Bld) [#/Vol] 278 10*3/uL Normal 150-450 [facility] Comment on above: Performed By: #### L 100.0100, L500.4050 #### [facility] [address] [place], [address] RBC (Bld) [#/Vol] 4.25 10*6/uL Normal 4.2-5.4 [facility] Comment on above: Performed By: #### L 100.0100, L500.4050 #### [facility] [address] [place], [address] RDW SD 40.7 fl Normal 35.1-43.9 [facility] Comment on above: Performed By: #### L 100.0100, L500.4050 #### [facility] [address] [place], [address] WBC (Bld) [#/Vol] 5.0 10*3/uL Normal 4.4-11.0 [facility] Comment on above: Performed By: #### L 100.0100, L500.4050 #### [facility] [address] [place], [address] Carbon dioxide, total [Moles /volume] in Central venous bloodOrdered By: Kristin Mckay on 09-02-2024 CO2 [Moles/Vol] 25.5 mmol/L 21.0-32.0 [facility] Chloride assayOrdered By: Shweta Mckay on 09-02-2024 Chloride [Moles/Vol] 104 mmol/L 98-108 [facility] Comprehensive Metabolic Prof ilon 09-02-2024 Albumin [Mass/Vol] 4.0 g/dL Normal 3.4-4.8 [facility] Comment on above: Performed By: #### L 100.0100, L500.4050 #### [facility] [address] [place], [address] Albumin/Globulin [Mass ratio] 1.5 {ratio} Normal 0.9-2.4 [facility] Comment on above: Performed By: #### L 100.0100, L500.4050 #### [facility] [address] [place], [address] ALK PHOS 65 U/L Normal 35-104 [facility] Comment on above: Performed By: #### L 100.0100, L500.4050 #### [facility] [address] [place], [address] ALT [Catalytic activity/Vol] 14 U/L Normal <=34 [facility] Comment on above: Performed By: #### L 100.0100, L500.4050 #### [facility] [address] [place], [address] AST [Catalytic activity/Vol] 20 U/L Normal <=31 [facility] Comment on above: Performed By: #### L 100.0100, L500.4050 #### [facility] [address] [place], [address] Bilirubin [Mass/Vol] 0.38 mg/dL Normal 0.00-1.30 [facility] Comment on above: Performed By: #### L 100.0100, L500.4050 #### [facility] [address] [place], [address] BUN/CRE 22.0 RATIO High 10-20 [facility] Comment on above: Performed By: #### L 100.0100, L500.4050 #### [facility] [address] [place], [address] Calcium [Mass/Vol] 9.6 mg/dL Normal 7.6-11.0 [facility] Comment on above: Performed By: #### L 100.0100, L500.4050 #### [facility] [address] [place], [address] Chloride [Moles/Vol] 104 mmol/L Normal 98-108 [facility] Comment on above: Performed By: #### L 100.0100, L500.4050 #### [facility] [address] [place], [address] CO2 [Moles/Vol] 25.5 mmol/L Normal 21.0-32.0 [facility] Comment on above: Performed By: #### L 100.0100, L500.4050 #### [facility] [address] [place], [address] Creatinine [Mass/Vol] 0.98 mg/dL Normal 0.70-1.20 [facility] Comment on above: Performed By: #### L 100.0100, L500.4050 #### [facility] [address] [place], [address] GAP 11 Normal 5-15 [facility] Comment on above: Performed By: #### L 100.0100, L500.4050 #### [facility] [address] [place], [address] GFR/1.73 sq M.predicted among non-blacks MDRD (S/P/Bld) [Vol rate/Area] 65 mL/min/{1.73_m2} Normal >60 [facility] Comment on above: Result Comment: mL/m in/1.73m2 CKD-EPI Creatinine Equation (2020) Performed By: #### L 100.0100, L500.4050 #### [facility] [address] [place], [address] Globulin (S) [Mass/Vol] 2.7 g/dL Normal 2.2-4.2 [facility] Comment on above: Performed By: #### L 100.0100, L500.4050 #### [facility] [address] [place], [address] Glucose [Mass/Vol] 104 mg/dL High 70-99 [facility] Comment on above: Performed By: #### L 100.0100, L500.4050 #### [facility] [address] [place], [address] Potassium [Moles/Vol] 4.0 mmol/L Normal 3.3-5.1 [facility] Comment on above: Performed By: #### L 100.0100, L500.4050 #### [facility] [address] [place], [address] Sodium [Moles/Vol] 140 mmol/L Normal 133-145 [facility] Comment on above: Performed By: #### L 100.0100, L500.4050 #### [facility] [address] [place], [address] T PROT 6.8 g/dL Normal 5.9-8.4 [facility] Comment on above: Performed By: #### L 100.0100, L500.4050 #### [facility] [address] [place], [address] Urea nitrogen [Mass/Vol] 22 mg/dL High 4-19 [facility] Comment on above: Performed By: #### L 100.0100, L500.4050 #### [facility] [address] [place], [address] Eosinophil percentageOrdered By: Kristin Mckay on 09-02-2024 Eosinophils/100 WBC (Bld) 2.8 % 0-5 [facility] Erythrocyte distribution wid th ratioOrdered By: [facility] Nely on 09-02-2024 Erythrocyte distribution width (RBC) [Ratio] 12.9 % 11.6-14.6 [facility] Erythrocyte distribution wid th standard deviationOrdered By: [facility] Nely on 09-02-2024 Erythrocyte distribution width (RBC) [Ratio] 40.7 fl 35.1-43.9 [facility] Glomerular filtration rate ( GFR) estimation/1.73 sq m using serum, plasma, or whole bOrdered By: Kristin Mckay on 09-02-2024 GFR/1.73 sq M.predicted among non-blacks MDRD (S/P/Bld) [Vol rate/Area] 65 mL/min/{1.73_m2} >60 [facility] Comment on above: mL/min/1.73m2 CKD-EP I Creatinine Equation (2020) Hematocrit Auto (Bld) [Volum e fraction]Ordered By: Kristin Mckay on 09-02-2024 Hematocrit (Bld) [Volume fraction] 37.1 % 37-47 [facility] Hemoglobin measurementOrdere d By: Kristin Mckay on 09-02-2024 Hemoglobin (Bld) [Mass/Vol] 12.4 g/dL 12.0-15.0 [facility] Immature granulocytes/100 WB C Auto (Bld)Ordered By: Kristin Mckay on 09-02-2024 Immature granulocytes/100 WBC (Bld) 0.400 % 0.0-0.9 [facility] Comment on above: IG% - Immature Granu locytes (promyelocytes, myelocytes and metamyelocytes) > 1% indicates that a LEFT SHIFT is Present. Laboratory - Chemistry and C hemistry - challengeOrdered By: Kristin Mckay on 09-02-2024 AST [Catalytic activity/Vol] 20 U/L <32 [facility] MCV (mean corpuscular volume ) determinationOrdered By: Kristin Mckay on 09-02-2024 MCV (RBC) [Entitic vol] 87.3 fL 81-99 [facility] Mean corpuscular hemoglobin (MCH) determinationOrdered By: Kristin Mckay on 09-02-2024 MCH (RBC) [Entitic mass] 29.2 pg 27.0-32.0 [facility] Mean corpuscular hemoglobin concentration (MCHC) determinationOrdered By: Kristin Mckay on 09-02-2024 MCHC (RBC) [Mass/Vol] 33.4 g/dL 32-36 [facility] Mean platelet volume determi nationOrdered By: Kristin Mckay on 09-02-2024 Platelet mean volume (Bld) [Entitic vol] 10.8 fL 6.2-12.0 [facility] Monocyte percentageOrdered B y: Kristin Mckay on 09-02-2024 Monocytes/100 WBC (Bld) 11.5 % High 0-10 [facility] Neutrophil percentageOrdered By: Kristin Mckay on 09-02-2024 Neutrophils/100 WBC (Bld) 58.7 % 47-70 [facility] Nucleated red blood cell per centageOrdered By: Kristin Mckay on 09-02-2024 Nucleated RBC/100 WBC (Bld) [Ratio] 0 % 0-5 [facility] Platelet countOrdered By: Shweta Mckay on 09-02-2024 Platelets (Bld) [#/Vol] 278 10*3/uL 150-450 [facility] Potassium measurement (mass/ volume)Ordered By: Kristin Mckay on 09-02-2024 Potassium (Unsp spec) [Mass/Vol] 4.0 mmol/L 3.3-5.1 [facility] RBC Auto (Bld) [#/Vol]Ordere d By: Kristin Mckay on 09-02-2024 RBC (Bld) [#/Vol] 4.25 10*6/uL 4.2-5.4 [facility] Serum creatinine measurement (mass/volume)Ordered By: Kristin Mckay on 09-02-2024 Creatinine [Mass/Vol] 0.98 mg/dL 0.70-1.20 [facility] Serum globulin measurementOr dered By: Kristin Mckay on 09-02-2024 Globulin (S) [Mass/Vol] 2.7 g/dL 2.2-4.2 [facility] Serum glucose measurement (m ass/volume)Ordered By: Kristin Mckay on 09-02-2024 Glucose [Mass/Vol] 104 mg/dL High 70-99 [facility] Serum or plasma alanine avery otransferase (ALT) measurementOrdered By: Kristin Mckay on 09-02-2024 ALT [Catalytic activity/Vol] 14 U/L <35 [facility] Serum or plasma albumin vazquez urement (mass/volume)Ordered By: Kristin Mckay on 09-02-2024 Albumin [Mass/Vol] 4.0 g/dL 3.4-4.8 [facility] Serum or plasma albumin/glob ulin mass ratioOrdered By: Kristin Mckay on 09-02-2024 Albumin/Globulin [Mass ratio] 1.5 {ratio} 0.9-2.4 [facility] Serum or plasma alkaline glen sphatase measurementOrdered By: Kristin Mckay on 09-02-2024 ALP [Catalytic activity/Vol] 65 U/L 35-104 [facility] Serum or plasma calcium vazquez urement (mass/volume)Ordered By: Kristin Mckay on 09-02-2024 Calcium [Mass/Vol] 9.6 mg/dL 7.6-11.0 [facility] Serum or plasma urea nitroge n measurement (mass/volume)Ordered By: Kristin Mckay on 09-02-2024 Urea nitrogen [Mass/Vol] 22 mg/dL High 4-19 [facility] Sodium levelOrdered By: Mark Mckay on 09-02-2024 Sodium [Moles/Vol] 140 mmol/L 133-145 [facility] Total proteinOrdered By: Esteban Mckay on 09-02-2024 Protein [Mass/Vol] 6.8 g/dL 5.9-8.4 [facility] White blood cell (WBC) count Ordered By: Kristin Mckay on 09-02-2024 WBC (Bld) [#/Vol] 5.0 10*3/uL 4.4-11.0 [facility] Absolute lymphocyte countOrd ered By: Win Matos on 07-14-2024 Lymphocytes Auto (Unsp spec) [#/Vol] 2.27 10*3/uL 0.83-4.51 [facility] Absolute neutrophil countOrd ered By: Win Matos on 07-14-2024 Neutrophils (Bld) [#/Vol] 4.4 10*3/uL 2.0-7.7 [facility] Anion gap in Serum or Plasma Ordered By: Win Matos on 07-14-2024 Anion gap [Moles/Vol] 11 mmol/L 5-15 [facility] Automated lymphocyte count a s percentage of total leukocytesOrdered By: Win Matos on 07-14-2024 Lymphocytes/100 WBC Auto (Unsp spec) 29.6 % 19-41 [facility] BUN/creatinine ratioOrdered By: Win Matos on 07-14-2024 Urea nitrogen/Creatinine [Mass ratio] 26.1 mg/mg High 10-20 [facility] Basophil percentageOrdered B y: Win Matos on 07-14-2024 Basophils/100 WBC (Bld) 0.9 % 0-1 [facility] Bilirubin, totalOrdered By: Win Matos on 07-14-2024 Bilirubin [Mass/Vol] 0.29 mg/dL 0.00-1.30 [facility] CBC W/Diff, Automatedon 04-0 -2024 Absolute Lymph 2.27 X10 3/uL Normal 0.83-4.51 [facility] Comment on above: Performed By: #### L 100.0100, L500.4050, L501.9520 ####[facility] [address] [place], [address] Absolute Neut 4.4 X10 3/uL Normal 2.0-7.7 [facility] Comment on above: Performed By: #### L 100.0100, L500.4050, L501.9520 ####[facility] [address] [place], [address] Basophils/100 WBC (Bld) 0.9 % Normal 0-1 [facility] Comment on above: Performed By: #### L 100.0100, L500.4050, L501.9520 ####[facility] [address] [place], [address] Eosinophils/100 WBC (Bld) 1.6 % Normal 0-5 [facility] Comment on above: Performed By: #### L 100.0100, L500.4050, L501.9520 ####[facility] [address] [place], [address] Erythrocyte distribution width (RBC) [Ratio] 13.8 % Normal 11.6-14.6 [facility] Comment on above: Performed By: #### L 100.0100, L500.4050, L501.9520 ####[facility] [address] [place], [address] Hematocrit (Bld) [Volume fraction] 35.7 % Low 37-47 [facility] Comment on above: Performed By: #### L 100.0100, L500.4050, L501.9520 ####[facility] [address] [place], [address] Hemoglobin (Bld) [Mass/Vol] 11.8 g/dL Low 12.0-15.0 [facility] Comment on above: Performed By: #### L 100.0100, L500.4050, L501.9520 ####[facility] [address] [place], [address] IG% 0.400 Normal 0.0-0.9 [facility] Comment on above: Result Comment: IG% - Immature Granulocytes (promyelocytes, myelocytes and metamyelocytes) > 1% indicates that a LEFT SHIFT is Present. Performed By: #### L 100.0100, L500.4050, L501.9520 ####[facility] [address] [place], [address] Lymphocytes/100 WBC (Bld) 29.6 % Normal 19-41 [facility] Comment on above: Performed By: #### L 100.0100, L500.4050, L501.9520 ####[facility] [address] [place], [address] MCH (RBC) [Entitic mass] 29.5 pg Normal 27.0-32.0 [facility] Comment on above: Performed By: #### L 100.0100, L500.4050, L501.9520 ####[facility] [address] [place], [address] MCHC (RBC) [Mass/Vol] 33.1 g/dL Normal 32-36 [facility] Comment on above: Performed By: #### L 100.0100, L500.4050, L501.9520 ####[facility] [address] [place], [address] MCV (RBC) [Entitic vol] 89.3 fL Normal 81-99 [facility] Comment on above: Performed By: #### L 100.0100, L500.4050, L501.9520 ####[facility] [address] [place], [address] Monocytes/100 WBC (Bld) 10.0 % Normal 0-10 [facility] Comment on above: Performed By: #### L 100.0100, L500.4050, L501.9520 ####[facility] [address] [place], [address] Neutrophils/100 WBC (Bld) 57.5 % Normal 47-70 [facility] Comment on above: Performed By: #### L 100.0100, L500.4050, L501.9520 ####[facility] [address] [place], [address] Nucleated RBC (Bld) [#/Vol] 0 10*3/uL Normal 0-5 [facility] Comment on above: Performed By: #### L 100.0100, L500.4050, L501.9520 ####[facility] [address] [place], [address] Platelet mean volume (Bld) [Entitic vol] 10.2 fL Normal 6.2-12.0 [facility] Comment on above: Performed By: #### L 100.0100, L500.4050, L501.9520 ####[facility] [address] [place], [address] Platelets (Bld) [#/Vol] 264 10*3/uL Normal 150-450 [facility] Comment on above: Performed By: #### L 100.0100, L500.4050, L501.9520 ####[facility] [address] [place], [address] RBC (Bld) [#/Vol] 4.00 10*6/uL Low 4.2-5.4 [facility] Comment on above: Performed By: #### L 100.0100, L500.4050, L501.9520 ####[facility] [address] [place], [address] RDW SD 44.4 fl High 35.1-43.9 [facility] Comment on above: Performed By: #### L 100.0100, L500.4050, L501.9520 ####[facility] [address] [place], [address] WBC (Bld) [#/Vol] 7.7 10*3/uL Normal 4.4-11.0 [facility] Comment on above: Performed By: #### L 100.0100, L500.4050, L501.9520 ####[facility] [address] [place], [address] Carbon dioxide, total [Moles /volume] in Central venous bloodOrdered By: Win Matos on 07-14-2024 CO2 [Moles/Vol] 27.2 mmol/L 21.0-32.0 [facility] Chloride assayOrdered By: Maldonado Matos on 07-14-2024 Chloride [Moles/Vol] 102 mmol/L 98-108 [facility] Comprehensive Metabolic Prof ilon 07-14-2024 Albumin [Mass/Vol] 4.1 g/dL Normal 3.4-4.8 [facility] Comment on above: Performed By: #### L 100.0100, L500.4050, L501.9520 ####[facility] [address] [place], [address] Albumin/Globulin [Mass ratio] 1.6 {ratio} Normal 0.9-2.4 [facility] Comment on above: Performed By: #### L 100.0100, L500.4050, L501.9520 ####[facility] [address] [place], [address] ALK PHOS 60 U/L Normal 35-104 [facility] Comment on above: Performed By: #### L 100.0100, L500.4050, L501.9520 ####[facility] [address] [place], [address] ALT [Catalytic activity/Vol] 18 U/L Normal <=34 [facility] Comment on above: Performed By: #### L 100.0100, L500.4050, L501.9520 ####[facility] [address] [place], [address] AST [Catalytic activity/Vol] 16 U/L Normal <=31 [facility] Comment on above: Performed By: #### L 100.0100, L500.4050, L501.9520 ####[facility] [address] [place], [address] Bilirubin [Mass/Vol] 0.29 mg/dL Normal 0.00-1.30 [facility] Comment on above: Performed By: #### L 100.0100, L500.4050, L501.9520 ####[facility] [address] [place], [address] BUN/CRE 26.1 RATIO High 10-20 [facility] Comment on above: Performed By: #### L 100.0100, L500.4050, L501.9520 ####[facility] [address] [place], [address] Calcium [Mass/Vol] 9.6 mg/dL Normal 7.6-11.0 [facility] Comment on above: Performed By: #### L 100.0100, L500.4050, L501.9520 ####[facility] [address] [place], [address] Chloride [Moles/Vol] 102 mmol/L Normal 98-108 [facility] Comment on above: Performed By: #### L 100.0100, L500.4050, L501.9520 ####[facility] [address] [place], [address] CO2 [Moles/Vol] 27.2 mmol/L Normal 21.0-32.0 [facility] Comment on above: Performed By: #### L 100.0100, L500.4050, L501.9520 ####[facility] [address] [place], [address] Creatinine [Mass/Vol] 0.88 mg/dL Normal 0.70-1.20 [facility] Comment on above: Performed By: #### L 100.0100, L500.4050, L501.9520 ####[facility] [address] [place], [address] GAP 11 Normal 5-15 [facility] Comment on above: Performed By: #### L 100.0100, L500.4050, L501.9520 ####[facility] [address] [place], [address] GFR/1.73 sq M.predicted among non-blacks MDRD (S/P/Bld) [Vol rate/Area] 73 mL/min/{1.73_m2} Normal >60 [facility] Comment on above: Result Comment: mL/m in/1.73m2 CKD-EPI Creatinine Equation (2020) Performed By: #### L 100.0100, L500.4050, L501.9520 ####[facility] [address] [place], [address] Globulin (S) [Mass/Vol] 2.7 g/dL Normal 2.2-4.2 [facility] Comment on above: Performed By: #### L 100.0100, L500.4050, L501.9520 ####[facility] [address] [place], [address] Glucose [Mass/Vol] 81 mg/dL Normal 70-99 [facility] Comment on above: Performed By: #### L 100.0100, L500.4050, L501.9520 ####[facility] [address] [place], [address] Potassium [Moles/Vol] 3.8 mmol/L Normal 3.3-5.1 [facility] Comment on above: Performed By: #### L 100.0100, L500.4050, L501.9520 ####[facility] [address] [place], [address] Sodium [Moles/Vol] 140 mmol/L Normal 133-145 [facility] Comment on above: Performed By: #### L 100.0100, L500.4050, L501.9520 ####[facility] [address] [place], [address] T PROT 6.8 g/dL Normal 5.9-8.4 [facility] Comment on above: Performed By: #### L 100.0100, L500.4050, L501.9520 ####[facility] [address] [place], [address] Urea nitrogen [Mass/Vol] 23 mg/dL High 4-19 [facility] Comment on above: Performed By: #### L 100.0100, L500.4050, L501.9520 ####[facility] [address] [place], [address] Eosinophil percentageOrdered By: Win Matos on 07-14-2024 Eosinophils/100 WBC (Bld) 1.6 % 0-5 [facility] Erythrocyte distribution wid th (RBC) [Ratio]Ordered By: Win Matos on 07-14-2024 Erythrocyte distribution width (RBC) [Entitic vol] 44.4 fL High 35.1-43.9 [facility] Erythrocyte distribution wid th ratioOrdered By: Win Matos on 07-14-2024 Erythrocyte distribution width (RBC) [Ratio] 13.8 % 11.6-14.6 [facility] Erythrocyte distribution wid th standard deviationOrdered By: Win Matos on 07-14-2024 Erythrocyte distribution width (RBC) [Ratio] 44.4 fl High 35.1-43.9 [facility] GFR/1.73 sq M.predicted morris g non-blacks MDRD (S/P/Bld) [Vol rate/Area]Ordered By: Win Matos on 07-14-2024 Estimated GFR (MDRD) Non-Af Amer 73 >60 [facility] Comment on above: mL/min/1.73m2 CKD-EP I Creatinine Equation (2020) Glomerular filtration rate ( GFR) estimation/1.73 sq m using serum, plasma, or whole bOrdered By: Win Matos on 07-14-2024 GFR/1.73 sq M.predicted among non-blacks MDRD (S/P/Bld) [Vol rate/Area] 73 mL/min/{1.73_m2} >60 [facility] Comment on above: mL/min/1.73m2 CKD-EP I Creatinine Equation (2020) Hematocrit Auto (Bld) [Volum e fraction]Ordered By: Win Matos on 07-14-2024 Hematocrit (Bld) [Volume fraction] 35.7 % Low 37-47 [facility] Hemoglobin measurementOrdere d By: Win Matos 07-14-2024 Hemoglobin (Bld) [Mass/Vol] 11.8 g/dL Low 12.0-15.0 [facility] Immature granulocytes/100 WB C Auto (Bld)Ordered By: Win Matos 07-14-2024 Immature granulocytes/100 WBC (Bld) 0.400 % 0.0-0.9 [facility] Comment on above: IG% - Immature Granu locytes (promyelocytes, myelocytes and metamyelocytes) > 1% indicates that a LEFT SHIFT is Present. Laboratory - Chemistry and C hemistry - challengeOrdered By: Win Matos on 07-14-2024 AST [Catalytic activity/Vol] 16 U/L <32 [facility] Lymphocytes Auto (Unsp spec) [#/Vol]Ordered By: Win Matos 07-14-2024 Lymphocytes (Bld) [#/Vol] 2.27 10*3/uL 0.83-4.51 [facility] Lymphocytes/100 WBC Auto (Un sp spec)Ordered By: Win Matos on 07-14-2024 Lymphocytes/100 WBC (Bld) 29.6 % 19-41 [facility] MCV (mean corpuscular volume ) determinationOrdered By: Win Matos on 07-14-2024 MCV (RBC) [Entitic vol] 89.3 fL 81-99 [facility] Mean corpuscular hemoglobin (MCH) determinationOrdered By: Win Matos on 07-14-2024 MCH (RBC) [Entitic mass] 29.5 pg 27.0-32.0 [facility] Mean corpuscular hemoglobin concentration (MCHC) determinationOrdered By: Win Matos on 07-14-2024 MCHC (RBC) [Mass/Vol] 33.1 g/dL 32-36 [facility] Mean platelet volume determi nationOrdered By: Win Matos on 07-14-2024 Platelet mean volume (Bld) [Entitic vol] 10.2 fL 6.2-12.0 [facility] Monocyte percentageOrdered B y: Win Matos on 07-14-2024 Monocytes/100 WBC (Bld) 10.0 % 0-10 [facility] Neutrophil percentageOrdered By: Win Matos on 07-14-2024 Neutrophils/100 WBC (Bld) 57.5 % 47-70 [facility] Nucleated red blood cell per centageOrdered By: Win Matos on 07-14-2024 Nucleated RBC/100 WBC (Bld) [Ratio] 0 % 0-5 [facility] Platelet countOrdered By: Maldonado Matos on 07-14-2024 Platelets (Bld) [#/Vol] 264 10*3/uL 150-450 [facility] Potassium (Unsp spec) [Mass/ Vol]Ordered By: Win Matos on 07-14-2024 Potassium [Moles/Vol] 3.8 mmol/L 3.3-5.1 [facility] Potassium measurement (mass/ volume)Ordered By: Win Matos on 07-14-2024 Potassium (Unsp spec) [Mass/Vol] 3.8 mmol/L 3.3-5.1 [facility] RBC Auto (Bld) [#/Vol]Ordere d By: Win Matos on 07-14-2024 RBC (Bld) [#/Vol] 4.00 10*6/uL Low 4.2-5.4 [facility] Serum creatinine measurement (mass/volume)Ordered By: Win Matos on 07-14-2024 Creatinine [Mass/Vol] 0.88 mg/dL 0.70-1.20 [facility] Serum globulin measurementOr dered By: Win Matos on 07-14-2024 Globulin (S) [Mass/Vol] 2.7 g/dL 2.2-4.2 [facility] Serum glucose measurement (m ass/volume)Ordered By: Win Matos on 07-14-2024 Glucose [Mass/Vol] 81 mg/dL 70-99 [facility] Serum or plasma alanine avery otransferase (ALT) measurementOrdered By: Win Matos 07-14-2024 ALT [Catalytic activity/Vol] 18 U/L <35 [facility] Serum or plasma albumin vazquez urement (mass/volume)Ordered By: Win Matos 07-14-2024 Albumin [Mass/Vol] 4.1 g/dL 3.4-4.8 [facility] Serum or plasma albumin/glob ulin mass ratioOrdered By: Win Matos 07-14-2024 Albumin/Globulin [Mass ratio] 1.6 {ratio} 0.9-2.4 [facility] Serum or plasma alkaline glen sphatase measurementOrdered By: Win Matos 07-14-2024 ALP [Catalytic activity/Vol] 60 U/L 35-104 [facility] Serum or plasma calcium vazquez urement (mass/volume)Ordered By: Win Matos 07-14-2024 Calcium [Mass/Vol] 9.6 mg/dL 7.6-11.0 [facility] Serum or plasma urea nitroge n measurement (mass/volume)Ordered By: Win Matos 07-14-2024 Urea nitrogen [Mass/Vol] 23 mg/dL High 4-19 [facility] Sodium levelOrdered By: Win Matos 07-14-2024 Sodium [Moles/Vol] 140 mmol/L 133-145 [facility] TSH DL <= 0.005 mIU/L QnOrde red By: Win Matos 07-14-2024 Thyroid Stimulating Hormone (TSH) 1.910 uIU/mL 0.300-4.200 [facility] TSH Qn 1.910 uIU/mL 0.300-4.200 [facility] Thyroid Stim Hormone (TSH)on 07-14-2024 TSH 1.910 uIU/mL Normal 0.300-4.200 [facility] Comment on above: Performed By: #### L 100.0100, L500.4050, L501.9520 ####[facility] [address] [place], [place], [id number] Total proteinOrdered By: Win Matos on 07-14-2024 Protein [Mass/Vol] 6.8 g/dL 5.9-8.4 [facility] White blood cell (WBC) count Ordered By: Win Matos on 07-14-2024 WBC (Bld) [#/Vol] 7.7 10*3/uL 4.4-11.0 [facility] Thyroglobulin w/Anti-TG ABon 07-07-2024 Anti-TG AB < 1.0 Normal 0.0-0.9 [facility] Comment on above: Order Comment: Reaso n for Laboratory Test x Result Comment: Thyr oglobulin Antibody measured by Eileen Yenifer Methodology It should be noted that the presence of thyroglobulin antibodies may not be pathogenic nor diagnostic, especially at very low levels. The assay furnace room supervisor has found that four percent of individuals without evidence of thyroid disease or autoimmunity will have positive TgAb levels up to 4 IU/mL. Performed By: #### L 501.9520, L3300.6820, L506.0400 #### [facility] [address] [place], [place], [id number] THYROGLOB QUANT < 0.1 Low 1.5-38.5 [facility] Comment on above: Order Comment: Reaso n for Laboratory Test x Result Comment: Acco rding to the [employer] Academy of Clinical [employer]ochemistry, the reference interval for Thyroglobulin (TG) should be related to euthyroid patients and not for patients who underwent thyroidectomy. TG reference intervals for these patients depend on the residual mass of the thyroid tissue left after surgery. Establishing a post-operative baseline is recommended. The assay limit of quantitation is 0.1 ng/mL Thyroglobulin measured by Eileen Yenifer Immunometric Assay Performed at: - [facility] [id number] Fish Conservationist: Louis Mariee PhD, Phone: [phone] Performed By: #### L 501.9520, L3264.7220, L506.0400 #### [facility] [address] [facility] [place], [address] T4 Free Directon 07-06-2024 T4 FREE DIRECT 1.50 ng/dL High 0.76-1.46 [facility] Comment on above: Performed By: #### L 501.9520, L3300.8259, L506.0400 #### [facility] [address] [facility] [place], [address] T4 freeOrdered By: Chaitanya Leblanc on 07-06-2024 Free T4 [Mass/Vol] 1.50 ng/dL High 0.76-1.46 [facility] TSH DL <= 0.005 mIU/L QnOrde red By: Chaitanya Leblanc on 07-06-2024 Thyroid Stimulating Hormone (TSH) 1.080 uIU/mL 0.300-4.200 [facility] TSH Qn 1.080 uIU/mL 0.300-4.200 [facility] Thyroglobulin Ab serumOrdere d By: Chaitanya Leblanc on 07-06-2024 Thyroglobulin Antibody < 1.0 IU/mL 0.0-0.9 [facility] Comment on above: Thyroglobulin Antibo dy measured by Eileen CoulterMethodologyIt should be noted that the presence of thyroglobulinantibodies may not be pathogenic nor diagnostic, especiallyat very low levels. The assay furnace room supervisor has found thatfour percent of individuals without evidence of thyroiddisease or autoimmunity will have positive TgAb levels upto 4 IU/mL. Thyroglobulin serOrdered By: Chaitanya Leblanc on 07-06-2024 Thyroglobulin Level < 0.1 ng/mL Low 1.5-38.5 [facility] Comment on above: According to the [facility] Academy of Clinical Biochemistry,the reference interval for Thyroglobulin (TG) should berelated to euthyroid patients and not for patients whounderwent thyroidectomy. TG reference intervals for thesepatients depend on the residual mass of the thyroid tissueleft after surgery. Establishing a post-operative baselineis recommended. The assay limit of quantitation is 0.1ng/mLThyroglobulin measured by Eileen Yenifer ImmunometricAssayPerformed at: - [facility] [id number] [place], [place] [id number] Director: Louis Mariee PhD, Phone: [phone] Thyroid Stim Hormone (TSH)on 07-06-2024 TSH 1.080 uIU/mL Normal 0.300-4.200 [facility] Comment on above: Performed By: #### L 501.9520, L3300.6820, L506.0400 #### [facility] [place], [address] Absolute lymphocyte countOrd ered By: Kristin Mckay on 06-11-2024 Lymphocytes Auto (Unsp spec) [#/Vol] 1.62 10*3/uL 0.83-4.51 [facility] Absolute neutrophil countOrd ered By: Kristin Mckay on 06-11-2024 Neutrophils (Bld) [#/Vol] 4.2 10*3/uL 2.0-7.7 [facility] Anion gap in Serum or Plasma Ordered By: Kristin Mckay on 06-11-2024 Anion gap [Moles/Vol] 11 mmol/L 5-15 [facility] Automated lymphocyte count a s percentage of total leukocytesOrdered By: Kristin Mckay on 06-11-2024 Lymphocytes/100 WBC Auto (Unsp spec) 24.6 % 19-41 [facility] BUN/creatinine ratioOrdered By: Kristin Mckay on 06-11-2024 Urea nitrogen/Creatinine [Mass ratio] 20.4 mg/mg High 10-20 [facility] Basophil percentageOrdered B y: Kristin Mckay on 06-11-2024 Basophils/100 WBC (Bld) 0.9 % 0-1 [facility] Bilirubin, totalOrdered By: Kristin Mckay on 06-11-2024 Bilirubin [Mass/Vol] 0.36 mg/dL 0.00-1.30 [facility] CBC W/Diff, Automatedon 03-0 7-2024 Absolute Lymph 1.62 X10 3/uL Normal 0.83-4.51 [facility] Comment on above: Performed By: #### L 100.0100, L500.4050 ####[facility] [address] [place], [address] Absolute Neut 4.2 X10 3/uL Normal 2.0-7.7 [facility] Comment on above: Performed By: #### L 100.0100, L500.4050 ####[facility] [address] [place], [address] Basophils/100 WBC (Bld) 0.9 % Normal 0-1 [facility] Comment on above: Performed By: #### L 100.0100, L500.4050 ####[facility] [address] [place], [address] Eosinophils/100 WBC (Bld) 1.5 % Normal 0-5 [facility] Comment on above: Performed By: #### L 100.0100, L500.4050 ####[facility] [address] [place], [address] Erythrocyte distribution width (RBC) [Ratio] 13.8 % Normal 11.6-14.6 [facility] Comment on above: Performed By: #### L 100.0100, L500.4050 ####[facility] [address] [place], [address] Hematocrit (Bld) [Volume fraction] 37.4 % Normal 37-47 [facility] Comment on above: Performed By: #### L 100.0100, L500.4050 ####[facility] [address] [place], [address] Hemoglobin (Bld) [Mass/Vol] 12.4 g/dL Normal 12.0-15.0 [facility] Comment on above: Performed By: #### L 100.0100, L500.4050 ####[facility] [address] [place], [address] IG% 0.300 Normal 0.0-0.9 [facility] Comment on above: Result Comment: IG% - Immature Granulocytes (promyelocytes, myelocytes and metamyelocytes) > 1% indicates that a LEFT SHIFT is Present. Performed By: #### L 100.0100, L500.4050 ####[facility] [address] [place], [address] Lymphocytes/100 WBC (Bld) 24.6 % Normal 19-41 [facility] Comment on above: Performed By: #### L 100.0100, L500.4050 ####[facility] [address] [place], [address] MCH (RBC) [Entitic mass] 28.8 pg Normal 27.0-32.0 [facility] Comment on above: Performed By: #### L 100.0100, L500.4050 ####[facility] [address] [place], [address] MCHC (RBC) [Mass/Vol] 33.2 g/dL Normal 32-36 [facility] Comment on above: Performed By: #### L 100.0100, L500.4050 ####[facility] [address] [place], [address] MCV (RBC) [Entitic vol] 87.0 fL Normal 81-99 [facility] Comment on above: Performed By: #### L 100.0100, L500.4050 ####[facility] [address] [place], [address] Monocytes/100 WBC (Bld) 8.5 % Normal 0-10 [facility] Comment on above: Performed By: #### L 100.0100, L500.4050 ####[facility] [address] [place], [address] Neutrophils/100 WBC (Bld) 64.2 % Normal 47-70 [facility] Comment on above: Performed By: #### L 100.0100, L500.4050 ####[facility] [address] [place], [address] Nucleated RBC (Bld) [#/Vol] 0 10*3/uL Normal 0-5 [facility] Comment on above: Performed By: #### L 100.0100, L500.4050 ####[facility] [address] [place], [address] Platelet mean volume (Bld) [Entitic vol] 10.4 fL Normal 6.2-12.0 [facility] Comment on above: Performed By: #### L 100.0100, L500.4050 ####[facility] [address] [place], [address] Platelets (Bld) [#/Vol] 240 10*3/uL Normal 150-450 [facility] Comment on above: Performed By: #### L 100.0100, L500.4050 ####[facility] [address] [place], [address] RBC (Bld) [#/Vol] 4.30 10*6/uL Normal 4.2-5.4 [facility] Comment on above: Performed By: #### L 100.0100, L500.4050 ####[facility] [address] [place], [address] RDW SD 42.5 fl Normal 35.1-43.9 [facility] Comment on above: Performed By: #### L 100.0100, L500.4050 ####[facility] [address] [place], [address] WBC (Bld) [#/Vol] 6.6 10*3/uL Normal 4.4-11.0 [facility] Comment on above: Performed By: #### L 100.0100, L500.4050 ####[facility] [address] [place], [address] Carbon dioxide, total [Moles /volume] in Central venous bloodOrdered By: Kristin Mckay on 06-11-2024 CO2 [Moles/Vol] 26.4 mmol/L 21.0-32.0 [facility] Chloride assayOrdered By: Shweta Mckay on 06-11-2024 Chloride [Moles/Vol] 104 mmol/L 98-108 [facility] Comprehensive Metabolic Prof ilon 06-11-2024 Albumin [Mass/Vol] 4.1 g/dL Normal 3.4-4.8 [facility] Comment on above: Performed By: #### L 100.0100, L500.4050 ####[facility] [address] [place], [address] Albumin/Globulin [Mass ratio] 1.5 {ratio} Normal 0.9-2.4 [facility] Comment on above: Performed By: #### L 100.0100, L500.4050 ####[facility] [address] [place], [address] ALK PHOS 60 U/L Normal 35-104 [facility] Comment on above: Performed By: #### L 100.0100, L500.4050 ####[facility] [address] [place], [address] ALT [Catalytic activity/Vol] 13 U/L Normal <=34 [facility] Comment on above: Performed By: #### L 100.0100, L500.4050 ####[facility] [address] [place], [address] AST [Catalytic activity/Vol] 16 U/L Normal <=31 [facility] Comment on above: Performed By: #### L 100.0100, L500.4050 ####[facility] [address] [place], [address] Bilirubin [Mass/Vol] 0.36 mg/dL Normal 0.00-1.30 [facility] Comment on above: Performed By: #### L 100.0100, L500.4050 ####[facility] [address] [place], [address] BUN/CRE 20.4 RATIO High 10-20 [facility] Comment on above: Performed By: #### L 100.0100, L500.4050 ####[facility] [address] [place], [address] Calcium [Mass/Vol] 9.5 mg/dL Normal 7.6-11.0 [facility] Comment on above: Performed By: #### L 100.0100, L500.4050 ####[facility] [address] [place], [address] Chloride [Moles/Vol] 104 mmol/L Normal 98-108 [facility] Comment on above: Performed By: #### L 100.0100, L500.4050 ####[facility] [address] [place], [address] CO2 [Moles/Vol] 26.4 mmol/L Normal 21.0-32.0 [facility] Comment on above: Performed By: #### L 100.0100, L500.4050 ####[facility] [address] [place], [address] Creatinine [Mass/Vol] 0.95 mg/dL Normal 0.70-1.20 [facility] Comment on above: Performed By: #### L 100.0100, L500.4050 ####[facility] [address] [place], [address] GAP 11 Normal 5-15 [facility] Comment on above: Performed By: #### L 100.0100, L500.4050 ####[facility] [address] [place], [address] GFR/1.73 sq M.predicted among non-blacks MDRD (S/P/Bld) [Vol rate/Area] 67 mL/min/{1.73_m2} Normal >60 [facility] Comment on above: Result Comment: mL/m in/1.73m2 CKD-EPI Creatinine Equation (2020) Performed By: #### L 100.0100, L500.4050 ####[facility] [address] [place], [address] Globulin (S) [Mass/Vol] 2.7 g/dL Normal 2.2-4.2 [facility] Comment on above: Performed By: #### L 100.0100, L500.4050 ####[facility] [address] [place], [address] Glucose [Mass/Vol] 96 mg/dL Normal 70-99 [facility] Comment on above: Performed By: #### L 100.0100, L500.4050 ####[facility] [address] [place], [address] Potassium [Moles/Vol] 3.7 mmol/L Normal 3.3-5.1 [facility] Comment on above: Performed By: #### L 100.0100, L500.4050 ####[facility] [address] [place], [address] Sodium [Moles/Vol] 141 mmol/L Normal 133-145 [facility] Comment on above: Performed By: #### L 100.0100, L500.4050 ####[facility] [address] [place], [address] T PROT 6.8 g/dL Normal 5.9-8.4 [facility] Comment on above: Performed By: #### L 100.0100, L500.4050 ####[facility] [address] [place] [place], [address] Urea nitrogen [Mass/Vol] 19 mg/dL Normal 4-19 [facility] Comment on above: Performed By: #### L 100.0100, L500.4050 ####[facility] [address] [place], [address] Eosinophil percentageOrdered By: Kristin Mckay on 06-11-2024 Eosinophils/100 WBC (Bld) 1.5 % 0-5 [facility] Erythrocyte distribution wid th ratioOrdered By: Kristin Mckay on 06-11-2024 Erythrocyte distribution width (RBC) [Ratio] 13.8 % 11.6-14.6 [facility] Erythrocyte distribution wid th standard deviationOrdered By: Kristin Mckay on 06-11-2024 Erythrocyte distribution width (RBC) [Entitic vol] 42.5 fL 35.1-43.9 [facility] Erythrocyte distribution width (RBC) [Ratio] 42.5 fl 35.1-43.9 [facility] GFR/1.73 sq M.predicted morris g non-blacks MDRD (S/P/Bld) [Vol rate/Area]Ordered By: Kristin Mckay on 06-11-2024 Estimated GFR (MDRD) Non-Af Amer 67 >60 [facility] Comment on above: mL/min/1.73m2 CKD-EP I Creatinine Equation (2020) Glomerular filtration rate ( GFR) estimation/1.73 sq m using serum, plasma, or whole bOrdered By: Kristin Mckay on 06-11-2024 GFR/1.73 sq M.predicted among non-blacks MDRD (S/P/Bld) [Vol rate/Area] 67 mL/min/{1.73_m2} >60 [facility] Comment on above: mL/min/1.73m2 CKD-EP I Creatinine Equation (2020) Hematocrit Auto (Bld) [Volum e fraction]Ordered By: Kristin Mckay on 06-11-2024 Hematocrit (Bld) [Volume fraction] 37.4 % 37-47 [facility] Hemoglobin measurementOrdere d By: Kristin Mckay on 06-11-2024 Hemoglobin (Bld) [Mass/Vol] 12.4 g/dL 12.0-15.0 [facility] Immature granulocytes/100 WB C Auto (Bld)Ordered By: Kristin Mckay on 06-11-2024 Immature granulocytes/100 WBC (Bld) 0.300 % 0.0-0.9 [facility] Comment on above: IG% - Immature Granu locytes (promyelocytes, myelocytes and metamyelocytes) > 1% indicates that a LEFT SHIFT is Present. Laboratory - Chemistry and C hemistry - challengeOrdered By: Kristin Mckay on 06-11-2024 AST [Catalytic activity/Vol] 16 U/L <32 [facility] Lymphocytes Auto (Unsp spec) [#/Vol]Ordered By: Kristin Mckay on 06-11-2024 Lymphocytes (Bld) [#/Vol] 1.62 10*3/uL 0.83-4.51 [facility] Lymphocytes/100 WBC Auto (Un sp spec)Ordered By: Kristin Mckay on 06-11-2024 Lymphocytes/100 WBC (Bld) 24.6 % 19-41 [facility] MCV (mean corpuscular volume ) determinationOrdered By: Kristin Mckay on 06-11-2024 MCV (RBC) [Entitic vol] 87.0 fL 81-99 [facility] Mean corpuscular hemoglobin (MCH) determinationOrdered By: Kristin Mckay on 06-11-2024 MCH (RBC) [Entitic mass] 28.8 pg 27.0-32.0 [facility] Mean corpuscular hemoglobin concentration (MCHC) determinationOrdered By: Kristin Mckay on 06-11-2024 MCHC (RBC) [Mass/Vol] 33.2 g/dL 32-36 [facility] Mean platelet volume determi nationOrdered By: Kristin Mckay on 06-11-2024 Platelet mean volume (Bld) [Entitic vol] 10.4 fL 6.2-12.0 [facility] Monocyte percentageOrdered B y: Kristin Mckay on 06-11-2024 Monocytes/100 WBC (Bld) 8.5 % 0-10 [facility] Neutrophil percentageOrdered By: Kristin Mckay on 06-11-2024 Neutrophils/100 WBC (Bld) 64.2 % 47-70 [facility] Nucleated red blood cell per centageOrdered By: Kristin Mckay on 06-11-2024 Nucleated RBC/100 WBC (Bld) [Ratio] 0 % 0-5 [facility] Platelet countOrdered By: Shweta Mckay on 06-11-2024 Platelets (Bld) [#/Vol] 240 10*3/uL 150-450 [facility] Potassium (Unsp spec) [Mass/ Vol]Ordered By: Kristin Mckay on 06-11-2024 Potassium [Moles/Vol] 3.7 mmol/L 3.3-5.1 [facility] Potassium measurement (mass/ volume)Ordered By: Kristin Mckay on 06-11-2024 Potassium (Unsp spec) [Mass/Vol] 3.7 mmol/L 3.3-5.1 [facility] RBC Auto (Bld) [#/Vol]Ordere d By: Kristin Mckay on 06-11-2024 RBC (Bld) [#/Vol] 4.30 10*6/uL 4.2-5.4 [facility] Serum creatinine measurement (mass/volume)Ordered By: Kristin Mckay on 06-11-2024 Creatinine [Mass/Vol] 0.95 mg/dL 0.70-1.20 [facility] Serum globulin measurementOr dered By: Krisitn Mckay on 06-11-2024 Globulin (S) [Mass/Vol] 2.7 g/dL 2.2-4.2 [facility] Serum glucose measurement (m ass/volume)Ordered By: Kristin Mckay on 06-11-2024 Glucose [Mass/Vol] 96 mg/dL 70-99 [facility] Serum or plasma alanine avery otransferase (ALT) measurementOrdered By: Kristin Mckay on 06-11-2024 ALT [Catalytic activity/Vol] 13 U/L <35 [facility] Serum or plasma albumin vazquez urement (mass/volume)Ordered By: Kristin Mckay on 06-11-2024 Albumin [Mass/Vol] 4.1 g/dL 3.4-4.8 [facility] Serum or plasma albumin/glob ulin mass ratioOrdered By: Kristin Mckay on 06-11-2024 Albumin/Globulin [Mass ratio] 1.5 {ratio} 0.9-2.4 [facility] Serum or plasma alkaline glen sphatase measurementOrdered By: Kristin Mckay on 06-11-2024 ALP [Catalytic activity/Vol] 60 U/L 35-104 [facility] Serum or plasma calcium vazquez urement (mass/volume)Ordered By: Kristin Mckay on 06-11-2024 Calcium [Mass/Vol] 9.5 mg/dL 7.6-11.0 [facility] Serum or plasma urea nitroge n measurement (mass/volume)Ordered By: Kristin Mckay on 06-11-2024 Urea nitrogen [Mass/Vol] 19 mg/dL 4-19 [facility] Sodium levelOrdered By: Mark Mckay on 06-11-2024 Sodium [Moles/Vol] 141 mmol/L 133-145 [facility] Total proteinOrdered By: Esteban Mckay on 06-11-2024 Protein [Mass/Vol] 6.8 g/dL 5.9-8.4 [facility] White blood cell (WBC) count Ordered By: Kristin Mckay on 06-11-2024 WBC (Bld) [#/Vol] 6.6 10*3/uL 4.4-11.0 [facility] Orthopedic Visit Reporton Orthopedic Visit Report [facility] [address] [place] [address] [address] [place] [address] OFFICE VISIT Date of Service: 05/28/24 MR#: [id number] Acct: [id number] Name: GINETTE MACKENZIE Rep #: [id number] : 1960 Provider: Dr. Abisai neil DO Age/Sex: 64/F Location[place] [facility] Status: Signed Intake Vital Signs 03/19/24 10:15 Height 5 ft 4 in Weight: 244 lb BMI 41.8 BP 108/75 Blood Pressure Location Lt brachial Position Sitting Pulse 85 Pulse Source Monitor Pulse Oximetry (%) 95 Oxygen Delivery Method room air Intake Visit Reasons: BL KNEES Allergies latex Allergy (Verified 03/19/24 10:19) Itching PFSH Medical History PONV (postoperative nausea and vomiting) Arthritis Easy bruising Back pain Gastric reflux Non-smoker Cardiology follow-up encounter Postoperative primary hypothyroidism Thyroid cancer COVID-19 virus detected (01/2020) Obesity Essential hypertension Endometrial hyperplasia without atypia, simple Daytime somnolence Peripheral neuropathy Bigeminy Premature ventricular contractions Postmenopausal bleeding Surgical History Status post laminectomy History of laparoscopic-assisted vaginal hysterectomy (06/04/18) [place] teeth extracted History of cervical polypectomy History of removal of neck cyst History of thyroid surgery Family History Unknown No problems noted. Social History adopted: Yes (does not know medical history) Smoking Status: Never smoker alcohol intake: never substance use type: does not use caffeine: No what type of physical activity do you participate in: other details: yard work HPI BL KNEES Details: This documentation accurately reflects the service provided and the decisions made by me, Dr. Abisai Roman, DO 05/28/24 1052. Part of today???s visit was documented by Jacquie ADAN, acting as scribe. GINETTE MACKENZIE is a 64 year old F here today for bilateral knee injections. Her last inejctions were 12/31/23. Ortho Exam General General: Yes no acute distress Neurologic: Yes alert and Yes oriented x3 Psychologic: Yes reasonable and appropriate Right Knee Skin/Wound: Yes swelling Homans Sign: No Knee ROM: Yes ROM-Extension -20 to 0 (-5) and Yes ROM-Flexion 0-140 (85) Examination: Yes Med jt line tenderness and Yes Lat jt line tenderness Stability: NML: Anterior Drawer and 1+: Valgus 0 (Due to medial joint space narrowing) and 1+: Valgus 30 Patella Translation: 1 KNEE: synovial hypertrophy but no effusion small bakers cyst Left Knee Skin/Wound: Yes swelling Knee ROM: Yes ROM-Extension -20 to 0 and Yes ROM-Flexion 0-140 (88) Examination: Yes med jt line tenderness and Yes Lat jt line tenderness Stability: NML: Anterior Drawer, NML: Posterior Drawer and NML: Varus 0 and 1+: Valgus 0 (Due to medial joint space narrowing) and 1+: Valgus 30 Apprehension with Lateral Translation: No Patella Translation: 1 KNEE: synovial hypertrophy but no effusion Office Procedures Ortho Injections Injections Yes Knee Bilateral Is this a patient provided medication?: No Details: Obtained consent for injection. Under sterile conditions, injected the patients bilateral knee with 1.5cc bupivacaine 1.5cc lidocaine 1cc depo medrol in each knee. The patient tolerated the injection well without any noted complication. Patient should call our office if redness develops, pain worsens or if they have any concerns. Office Meds Depo-Medrol 40 mg/mL suspension for injection Performing Provider: Abisai Roman DO Performing Location: [facility] Administered by: Abisai Roman DO on 05/28/24 11:03 Dose Route Admin Location Dispensed Lot Number Expiration Date NDC Man ufacturer 80 mg intra-articular bilateral knee 2 mL [id number] 11/05/25 3160-0312-92 P [employer] Supplemental Info 12/31/2023 x-ray left knee: Advanced medial compartment arthrosis joint space narrowing severe patellofemoral arthrosis with joint space narrowing and spurring 12/31/2023 x-ray right knee: Severe medial compartment arthrosis with joint space narrowing varus deformity moderate patellofemoral arthrosis 07/03/2020 X-ray right knee: Severe degenerative arthrosis of the medial femorotibial compartment Coding Level of Care Code Off vis,est,level 3 Diagnoses Obesity E66.9 Obesity type: due to excess calories Primary osteoarthritis of right knee M17.11 Osteoarthritis type: primary Primary osteoarthritis of left knee M17.12 Osteoarthritis type: primary CPT Codes supervisor edging.knee ([id number]) Assessment and Plan Assessment and Plan (1) Obesity: (more content not included)... Normal [facility] SCRN MAMM (CAD)W/MACHELLE Avery n 05-17-2024 SCRN MAMM (CAD)W/MACHELLE BILAT [facility] Imaging Services [address] [place], [place] [address] SCRN MAMM (CAD)W/MACHELLE BILAT MR#: [id number] Acct: [id number] Name: GINETTE MACKENZIE Rep #: [id number] : 1960 F 64 From: Bonita Miranda MD PCP: Dr. Win Matos MD Status: REG CLI Study: SCRN MAMM (CAD)W/MACHELLE BILAT Date of Exam: 05/08 Exam# [id number] Ordering Dr: Win Matos MD PROCEDURE: SCRN MAMM (CAD)W/MACHELLE BILAT REASON FOR EXAM: F, Age 64 y/o, presents for annual screening mammogram. There is no family history of breast cancer. TECHNIQUE: Bilateral screening digital breast tomosynthesis with 2D and 3D images. Computer aided detection. COMPARISON: 05/15/2023 FINDINGS: There are scattered areas of fibroglandular density. No suspicious masses, areas of developing architectural distortion, or suspicious calcifications. BI/SCRN MAMM (CAD)W/MACHELLE BILAT IMPRESSION: There is no mammographic evidence of malignancy. BI-RADS 1: NEGATIVE. RECOMMEND ANNUAL MAMMOGRAPHIC SCREENING. Follow-up code: Routine Follow-up The patient will be notified of the results by letter. Reading Location: [id number] CC: Dr. Win Matos MD Marketing Proposal Specialist: Signed Normal [facility] Absolute neutrophil countOrd ered By: Kristin Mckay on 04-29-2024 Neutrophils (Bld) [#/Vol] 7.5 10*3/uL 2.0-7.7 [facility] Albumin to globulin ratioOrd ered By: Kristin Mckay on 04-29-2024 Albumin/Globulin [Mass ratio] 1.1 {ratio} 0.9-2.4 [facility] Basophil percentageOrdered B y: Kristin Mckay on 01-23-2025 Basophils/100 WBC (Bld) 0.5 % 0-1 [facility] Bilirubin, totalOrdered By: Kristin Mckay on 04-29-2024 Bilirubin [Mass/Vol] 0.30 mg/dL 0.20-1.00 [facility] Comment on above: For patients on eltr ombopag therapy, use of Dimension [place] TBIL is not recommended. Blood urea nitrogen (BUN)/cr eatinine ratioOrdered By: Kristin Mckay on 04-29-2024 Urea nitrogen/Creatinine [Mass ratio] 24.0 mg/mg High 10-20 [facility] CBC W/Diff, Automatedon 04-08 Absolute Lymph 1.43 X10 3/uL Normal 0.83-4.51 [facility] Comment on above: Performed By: #### L 500.4050, L100.0100 ####[facility] [address] [place], [address] Absolute Neut 7.5 X10 3/uL Normal 2.0-7.7 [facility] Comment on above: Performed By: #### L 500.4050, L100.0100 ####[facility] [address] [place], [address] Basophils/100 WBC (Bld) 0.5 % Normal 0-1 [facility] Comment on above: Performed By: #### L 500.4050, L100.0100 ####[facility] [address] [place], [address] Eosinophils/100 WBC (Bld) 0.5 % Normal 0-5 [facility] Comment on above: Performed By: #### L 500.4050, L100.0100 ####[facility] [address] [place], [address] Erythrocyte distribution width (RBC) [Ratio] 13.8 % Normal 11.6-14.6 [facility] Comment on above: Performed By: #### L 500.4050, L100.0100 ####[facility] [address] [place], [address] Hematocrit (Bld) [Volume fraction] 39.2 % Normal 37-47 [facility] Comment on above: Performed By: #### L 500.4050, L100.0100 ####[facility] [address] [place], [address] Hemoglobin (Bld) [Mass/Vol] 13.1 g/dL Normal 12.0-15.0 [facility] Comment on above: Performed By: #### L 500.4050, L100.0100 ####[facility] [address] [place], [address] IG% 0.600 Normal 0.0-0.9 [facility] Comment on above: Result Comment: IG% - Immature Granulocytes (promyelocytes, myelocytes and metamyelocytes) > 1% indicates that a LEFT SHIFT is Present. Performed By: #### L 500.4050, L100.0100 ####[facility] [address] [place], [address] Lymphocytes/100 WBC (Bld) 14.8 % Low 19-41 [facility] Comment on above: Performed By: #### L 500.4050, L100.0100 ####[facility] [address] [place], [address] MCH (RBC) [Entitic mass] 29.0 pg Normal 27.0-32.0 [facility] Comment on above: Performed By: #### L 500.4050, L100.0100 ####[facility] [address] [place], [address] MCHC (RBC) [Mass/Vol] 33.4 g/dL Normal 32-36 [facility] Comment on above: Performed By: #### L 500.4050, L100.0100 ####[facility] [address] [place], [address] MCV (RBC) [Entitic vol] 86.7 fL Normal 81-99 [facility] Comment on above: Performed By: #### L 500.4050, L100.0100 ####[facility] [address] [place], [address] Monocytes/100 WBC (Bld) 5.8 % Normal 0-10 [facility] Comment on above: Performed By: #### L 500.4050, L100.0100 ####[facility] [address] [place], [address] Neutrophils/100 WBC (Bld) 77.8 % High 47-70 [facility] Comment on above: Performed By: #### L 500.4050, L100.0100 ####[facility] [address] [place], [address] Nucleated RBC (Bld) [#/Vol] 0 10*3/uL Normal 0-5 [facility] Comment on above: Performed By: #### L 500.4050, L100.0100 ####[facility] [address] [place], [address] Platelet mean volume (Bld) [Entitic vol] 9.9 fL Normal 6.2-12.0 [facility] Comment on above: Performed By: #### L 500.4050, L100.0100 ####[facility] [address] [place], [address] Platelets (Bld) [#/Vol] 283 10*3/uL Normal 150-450 [facility] Comment on above: Performed By: #### L 500.4050, L100.0100 ####[facility] [address] [place], [address] RBC (Bld) [#/Vol] 4.52 10*6/uL Normal 4.2-5.4 [facility] Comment on above: Performed By: #### L 500.4050, L100.0100 ####[facility] [address] [place], [address] RDW SD 42.3 fl Normal 35.1-43.9 [facility] Comment on above: Performed By: #### L 500.4050, L100.0100 ####[facility] [address] [place], [address] WBC (Bld) [#/Vol] 9.7 10*3/uL Normal 4.4-11.0 [facility] Comment on above: Performed By: #### L 500.4050, L100.0100 ####[facility] [address] [place], [address] Carbon dioxide measurementOr dered By: Kristin Mckay on 04-29-2024 CO2 [Moles/Vol] 29.0 mmol/L 21.0-32.0 [facility] Chloride measurementOrdered By: Kristin Mckay on 04-29-2024 Chloride [Moles/Vol] 105 mmol/L 98-107 [facility] Comprehensive Metabolic Prof ilon 04-29-2024 Albumin [Mass/Vol] 4.0 g/dL Normal 3.2-5.0 [facility] Comment on above: Performed By: #### L 500.4050, L100.0100 ####[facility] [address] [place], [address] Albumin/Globulin [Mass ratio] 1.1 {ratio} Normal 0.9-2.4 [facility] Comment on above: Performed By: #### L 500.4050, L100.0100 ####[facility] [address] [place], [address] ALK P 57 U/L Normal 45-117 [facility] Comment on above: Performed By: #### L 500.4050, L100.0100 ####[facility] [address] [place], [address] ALT [Catalytic activity/Vol] 29 U/L Normal 13-56 [facility] Comment on above: Performed By: #### L 500.4050, L100.0100 ####[facility] [address] [place], [address] AST [Catalytic activity/Vol] 12 U/L Low 15-37 [facility] Comment on above: Performed By: #### L 500.4050, L100.0100 ####[facility] [address] [place], [address] Bilirubin [Mass/Vol] 0.30 mg/dL Normal 0.20-1.00 [facility] Comment on above: Result Comment: For patients on eltrombopag therapy, use of Dimension [place] TBIL is not recommended. Performed By: #### L 500.4050, L100.0100 ####[facility] [address] [place], [address] BUN/CRE 24.0 RATIO High 10-20 [facility] Comment on above: Performed By: #### L 500.4050, L100.0100 ####[facility] [address] [place], [address] CA,Total 9.9 mg/dL Normal 8.5-10.1 [facility] Comment on above: Performed By: #### L 500.4050, L100.0100 ####[facility] [address] [place], [address] Chloride [Moles/Vol] 105 mmol/L Normal 98-107 [facility] Comment on above: Performed By: #### L 500.4050, L100.0100 ####[facility] [address] [place], [address] CO2 [Moles/Vol] 29.0 mmol/L Normal 21.0-32.0 [facility] Comment on above: Performed By: #### L 500.4050, L100.0100 ####[facility] [address] [place], [address] Creatinine [Mass/Vol] 0.96 mg/dL Normal 0.55-1.02 [facility] Comment on above: Result Comment: The validity of the calculated GFR GFRAA in patients over 70 years has not been determined. Clinical correlation is essential. Performed By: #### L 500.4050, L100.0100 ####[facility] [address] [place], [address] EST GFR - AA 75 mL/min Normal >60 [facility] Comment on above: Result Comment: Afri can Uzbek GFR Calc Performed By: #### L 500.4050, L100.0100 ####[facility] [address] [place], [address] GAP 5 Normal 5-15 [facility] Comment on above: Performed By: #### L 500.4050, L100.0100 ####[facility] [address] [place], [address] GFR/1.73 sq M.predicted among non-blacks MDRD (S/P/Bld) [Vol rate/Area] 62 mL/min/{1.73_m2} Normal >60 [facility] Comment on above: Result Comment: Non- GFR Calc Performed By: #### L 500.4050, L100.0100 ####[facility] [address] [place], [address] Globulin (S) [Mass/Vol] 3.5 g/dL Normal 2.2-4.2 [facility] Comment on above: Performed By: #### L 500.4050, L100.0100 ####[facility] [address] [place], [address] Glucose [Mass/Vol] 96 mg/dL Normal 74-106 [facility] Comment on above: Performed By: #### L 500.4050, L100.0100 ####[facility] [address] [place], [address] Potassium [Moles/Vol] 3.5 mmol/L Normal 3.5-5.1 [facility] Comment on above: Performed By: #### L 500.4050, L100.0100 ####[facility] [address] [place], [address] Sodium [Moles/Vol] 138 mmol/L Normal 136-145 [facility] Comment on above: Performed By: #### L 500.4050, L100.0100 ####[facility] [address] [place], [address] T PROT 7.5 g/dL Normal 6.4-8.2 [facility] Comment on above: Performed By: #### L 500.4050, L100.0100 ####[facility] [address] [place], [address] Urea nitrogen [Mass/Vol] 23 mg/dL High 7-18 [facility] Comment on above: Performed By: #### L 500.4050, L100.0100 ####[facility] [address] [place], [address] Eosinophil percentageOrdered By: Kristin Mckay on 04-29-2024 Eosinophils/100 WBC (Bld) 0.5 % 0-5 [facility] Erythrocyte distribution wid th ratioOrdered By: Kristin Mckay on 04-29-2024 Erythrocyte distribution width (RBC) [Ratio] 13.8 % 11.6-14.6 [facility] Erythrocyte distribution wid th standard deviationOrdered By: Kristin Mckay on 04-29-2024 Erythrocyte distribution width (RBC) [Entitic vol] 42.3 fL 35.1-43.9 [facility] Estimated glomerular filtrat ion rate (GFR) AmericanOrdered By: Kristin Mckay on 04-29-2024 Estimated GFR (MDRD) Amer 75 mL/min >60 [facility] Comment on above: GFR Calc Glomerular filtration rate ( GFR) estimationOrdered By: Kristin Mckay on 04-29-2024 Estimated GFR (MDRD) Non-Af Amer 62 mL/min >60 [facility] Comment on above: Non- GFR Calc Glucose measurementOrdered B y: Kristin Mckay on 04-29-2024 Glucose [Mass/Vol] 96 mg/dL 74-106 [facility] Hematocrit Auto (Bld) [Volum e fraction]Ordered By: Kristin Mckay on 04-29-2024 Hematocrit (Bld) [Volume fraction] 39.2 % 37-47 [facility] Hemoglobin measurementOrdere d By: Kristin Mckay on 04-29-2024 Hemoglobin (Bld) [Mass/Vol] 13.1 g/dL 12.0-15.0 [facility] Immature granulocytes/100 WB C Auto (Bld)Ordered By: Kristin Mckay on 04-29-2024 Immature granulocytes/100 WBC (Bld) 0.600 % 0.0-0.9 [facility] Comment on above: IG% - Immature Granu locytes (promyelocytes, myelocytes and metamyelocytes) > 1% indicates that a LEFT SHIFT is Present. Laboratory - Chemistry and C hemistry - challengeOrdered By: Kristin Mckay on 04-29-2024 AST [Catalytic activity/Vol] 12 U/L Low 15-37 [facility] Lymphocytes Auto (Unsp spec) [#/Vol]Ordered By: Kristin Mckay on 04-29-2024 Lymphocytes (Bld) [#/Vol] 1.43 10*3/uL 0.83-4.51 [facility] Lymphocytes/100 WBC Auto (Un sp spec)Ordered By: Kristin Mckay on 04-29-2024 Lymphocytes/100 WBC (Bld) 14.8 % Low 19-41 [facility] MCV (mean corpuscular volume ) determinationOrdered By: Kristin Mckay on 04-29-2024 MCV (RBC) [Entitic vol] 86.7 fL 81-99 [facility] Mean corpuscular hemoglobin (MCH) determinationOrdered By: Kristin Mckay on 04-29-2024 MCH (RBC) [Entitic mass] 29.0 pg 27.0-32.0 [facility] Mean corpuscular hemoglobin concentration (MCHC) determinationOrdered By: rKistin Mckay on 04-29-2024 MCHC (RBC) [Mass/Vol] 33.4 g/dL 32-36 [facility] Mean platelet volume determi nationOrdered By: Kristin Mckay on 04-29-2024 Platelet mean volume (Bld) [Entitic vol] 9.9 fL 6.2-12.0 [facility] Monocyte percentageOrdered B y: Kristin Mckay on 04-29-2024 Monocytes/100 WBC (Bld) 5.8 % 0-10 [facility] Neutrophil percentageOrdered By: Kristin Mckay on 04-29-2024 Neutrophils/100 WBC (Bld) 77.8 % High 47-70 [facility] Nucleated red blood cell per centageOrdered By: Kristin Mckay on 04-29-2024 Nucleated RBC/100 WBC (Bld) [Ratio] 0 % 0-5 [facility] Platelet countOrdered By: Shweta Mckay on 04-29-2024 Platelets (Bld) [#/Vol] 283 10*3/uL 150-450 [facility] Potassium measurementOrdered By: Kristin Mckay on 04-29-2024 Potassium [Moles/Vol] 3.5 mmol/L 3.5-5.1 [facility] RBC Auto (Bld) [#/Vol]Ordere d By: Kristin Mckay on 04-29-2024 RBC (Bld) [#/Vol] 4.52 10*6/uL 4.2-5.4 [facility] Serum anion gap measurementO rdered By: Kristin Mcaky on 04-29-2024 Anion gap [Moles/Vol] 5 mmol/L 5-15 [facility] Serum globulin measurementOr dered By: Kristin Mckay on 04-29-2024 Globulin (S) [Mass/Vol] 3.5 g/dL 2.2-4.2 [facility] Serum or plasma alanine avery otransferase (ALT) measurementOrdered By: Kristin Mckay on 04-29-2024 ALT [Catalytic activity/Vol] 29 U/L 13-56 [facility] Serum or plasma albumin vazquez urement (mass/volume)Ordered By: Kristin Mckay on 04-29-2024 Albumin [Mass/Vol] 4.0 g/dL 3.2-5.0 [facility] Serum or plasma alkaline glen sphatase measurementOrdered By: Kristin Mckay on 04-29-2024 ALP [Catalytic activity/Vol] 57 U/L 45-117 [facility] Serum or plasma calcium vazquez urement (mass/volume)Ordered By: Kristin Mckay on 04-29-2024 Calcium [Mass/Vol] 9.9 mg/dL 8.5-10.1 [facility] Serum or plasma creatinine m easurement (mass/volume)Ordered By: Kristin Mckay on 04-29-2024 Creatinine [Mass/Vol] 0.96 mg/dL 0.55-1.02 [facility] Comment on above: The validity of the calculated GFR & GFRAA in patients over 70 years has not been determined. Clinical correlation is essential. Serum or plasma urea nitroge n measurement (mass/volume)Ordered By: Kristin Mckay on 04-29-2024 Urea nitrogen [Mass/Vol] 23 mg/dL High 7-18 [facility] Sodium levelOrdered By: Mark Mckay on 04-29-2024 Sodium [Moles/Vol] 138 mmol/L 136-145 [facility] Total proteinOrdered By: Esteban Mckay on 04-29-2024 Protein [Mass/Vol] 7.5 g/dL 6.4-8.2 [facility] White blood cell (WBC) count Ordered By: Kristin Mckay on 04-29-2024 WBC (Bld) [#/Vol] 9.7 10*3/uL 4.4-11.0 [facility] Endocrinology Visit Reporton 03-19-2024 Endocrinology Visit Report [facility] [address] [place] [address]. [address] [place] [address] OFFICE VISIT Date of Service: 03/19/24 MR#: [id number] Acct: [id number] Name: GINETTE MACKENZIE Rep #: [id number] : 1960 Provider: Laure Mansfield Age/Sex: 63/F [place] [facility] [place] Status: Signed Intake Vital Signs 03/15/22 14:48 12/31/23 15:47 03/19/24 10:15 Height 5 ft 4 in 5 ft 4 in 5 ft 4 in Weight: 244 lb BMI 41.8 BP 108/75 Blood Pressure Location Lt brachial Position Sitting Pulse 85 Pulse Source Monitor Pulse Oximetry (%) 95 Oxygen Delivery Method room air Intake Visit Reasons: 1 Y FU Chief Complaint: Thyroid cancer Student Required: No Accompanied by: Self Is patient in pain?: Yes (General) Pain scale (1-10): 7 Allergies latex Allergy (Verified 03/19/24 10:19) Itching Medications ???Medication ???Instructions ???Recorded ???Confirmed ???Type omeprazole 20 mg capsule,delayed 20 mg PO DAILY 03/11/18 03/19/24 History release valsartan 320 1 ea PO DAILY 03/11/18 03/19/24 History mg-hydrochlorothiazide 12.5 mg tablet metoprolol tartrate 25 mg tablet 25 mg PO BID #180 tabs 04/05/21 03/19/24 Rx ferrous sulfate 325 mg (65 mg 325 mg PO DAILY PRN 03/19/24 03/19/24 History iron) tablet folic acid 1 mg tablet 2 mg PO QDAY 03/19/24 03/19/24 History leucovorin calcium 15 mg tablet 15 mg PO QWEEK 03/19/24 03/19/24 History levothyroxine 112 mcg tablet 112 mcg PO QDAY #90 tabs 03/19/24 03/19/24 Rx methotrexate sodium 2.5 mg tablet 15 mg PO QWEEK 03/19/24 03/19/24 History potassium chloride 20 mEq 20 meq PO QDAY 03/19/24 03/19/24 History tablet,extended release prednisone 10 mg tablet 10 mg PO QDAY PRN 03/19/24 03/19/24 History pregabalin 75 mg capsule 75 mg PO TID 03/19/24 03/19/24 History tramadol 50 mg tablet 50 mg PO TID PRN 03/19/24 03/19/24 History PFSH Medical History PONV (postoperative nausea and vomiting) Arthritis Easy bruising Back pain Gastric reflux Non-smoker Cardiology follow-up encounter Postoperative primary hypothyroidism Thyroid cancer COVID-19 virus detected (01/2020) Obesity Essential hypertension Endometrial hyperplasia without atypia, simple Daytime somnolence Peripheral neuropathy Bigeminy Premature ventricular contractions Postmenopausal bleeding Surgical History Status post laminectomy History of laparoscopic-assisted vaginal hysterectomy (06/04/18) [place] teeth extracted History of cervical polypectomy History of removal of neck cyst History of thyroid surgery Family History Unknown No problems noted. Social History adopted: Yes (does not know medical history) Smoking Status: Never smoker alcohol intake: never substance use type: does not use caffeine: No what type of physical activity do you participate in: other details: yard work HPI HPI Chief Complaint: Thyroid cancer Details: GINETTE MACKENZIE, is a 63 F who presents to the office today for follow up. 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 ROS Const Constitutional: No fatigue, weakness or weight change Cardio Cardiology: No chest pain at rest, chest pain with exertion or shortness of breath Musc Musculoskeletal: Positive for abnormal gait, joint pain, back pain, joint swelling, limited range of motion, muscle weakness, stiffness and Arthritis; No numbness Neuro Neurology: Positive for abnormal gait; No weakness or numbness Skin Skin: No wounds Endo Endocrine: No fatigue or weight change Exam Const General: cooperative, healthy appearing, comfortable, no acute distress, well developed and not cushingoid Nutritional Appearance: well nourished Orientation: alert, awake and oriented x3 HENMT Head: normal to inspection Ears: hearing grossly normal bilaterally Nose: external nose normal Mouth: oral mucosae normal Eyes General: appearance normal, both eyes and all related structures Alignment and Position: alignment normal Periorbital: periorbital findings normal Eyelids: eyelids normal Conjunctivae: conjunctivae normal Neck Neck: normal visual inspection Neck mass: No Thyroid: other (no tissue palpable) Lymphatic: no lymphadenopathy noted Chest Chest palpation inspection: normal inspection of the chest Resp Effort Inspection: normal respiratory effort, able to speak in complete sentences, symmetric chest movemen (more content not included)... Normal [facility] Absolute neutrophil countOrd ered By: Kristindarrell Mckay on 02-28-2024 Neutrophils (Bld) [#/Vol] 3.9 10*3/uL 2.0-7.7 [facility] Albumin to globulin ratioOrd ered By: [facility] Nely on 02-28-2024 Albumin/Globulin [Mass ratio] 1.1 {ratio} 0.9-2.4 [facility] Basophil percentageOrdered B y: Kristin Nely on 02-28-2024 Basophils/100 WBC (Bld) 0.8 % 0-1 [facility] Bilirubin, totalOrdered By: [facility] Nely on 02-28-2024 Bilirubin [Mass/Vol] 0.40 mg/dL 0.20-1.00 [facility] Comment on above: For patients on eltr ombopag therapy, use of Dimension [place] TBIL is not recommended. Blood urea nitrogen (BUN)/cr eatinine ratioOrdered By: Kristindarrell Mckay on 02-28-2024 Urea nitrogen/Creatinine [Mass ratio] 25.6 mg/mg High 10- [facility] CBC W/Diff, Automatedon 02-06 Absolute Lymph 2.72 X10 3/uL Normal 0.83-4.51 [facility] Comment on above: Performed By: #### L 300.4310, L300.3900, L100.0100 #### [facility] [address] [place], [address] Absolute Neut 3.9 X10 3/uL Normal 2.0-7.7 [facility] Comment on above: Performed By: #### L 300.4310, L300.3900, L100.0100 #### [facility] [address] [place], [address] Basophils/100 WBC (Bld) 0.8 % Normal 0-1 [facility] Comment on above: Performed By: #### L 300.4310, L300.3900, L100.0100 #### [facility] [address] [place], [address] Eosinophils/100 WBC (Bld) 1.7 % Normal 0-5 [facility] Comment on above: Performed By: #### L 300.4310, L300.3900, L100.0100 #### [facility] [address] [place], [address] Erythrocyte distribution width (RBC) [Ratio] 13.6 % Normal 11.6-14.6 [facility] Comment on above: Performed By: #### L 300.4310, L300.3900, L100.0100 #### [facility] [address] [place], [address] Hematocrit (Bld) [Volume fraction] 37.7 % Normal 37-47 [facility] Comment on above: Performed By: #### L 300.4310, L300.3900, L100.0100 #### [facility] [address] [place], [address] Hemoglobin (Bld) [Mass/Vol] 12.1 g/dL Normal 12.0-15.0 [facility] Comment on above: Performed By: #### L 300.4310, L300.3900, L100.0100 #### [facility] [address] [place], [address] IG% 0.500 Normal 0.0-0.9 [facility] Comment on above: Result Comment: IG% - Immature Granulocytes (promyelocytes, myelocytes and metamyelocytes) > 1% indicates that a LEFT SHIFT is Present. Performed By: #### L 300.4310, L300.3900, L100.0100 #### [facility] [address] [place], [address] Lymphocytes/100 WBC (Bld) 36.6 % Normal 19-41 [facility] Comment on above: Performed By: #### L 300.4310, L300.3900, L100.0100 #### [facility] [address] [place], [address] MCH (RBC) [Entitic mass] 27.9 pg Normal 27.0-32.0 [facility] Comment on above: Performed By: #### L 300.4310, L300.3900, L100.0100 #### [facility] [address] [place], [address] MCHC (RBC) [Mass/Vol] 32.1 g/dL Normal 32-36 [facility] Comment on above: Performed By: #### L 300.4310, L300.3900, L100.0100 #### [facility] [address] [place], [address] MCV (RBC) [Entitic vol] 86.9 fL Normal 81-99 [facility] Comment on above: Performed By: #### L 300.4310, L300.3900, L100.0100 #### [facility] [address] [place], [address] Monocytes/100 WBC (Bld) 8.2 % Normal 0-10 [facility] Comment on above: Performed By: #### L 300.4310, L300.3900, L100.0100 #### [facility] [address] [place], [address] Neutrophils/100 WBC (Bld) 52.2 % Normal 47-70 [facility] Comment on above: Performed By: #### L 300.4310, L300.3900, L100.0100 #### [facility] [address] [place], [address] Nucleated RBC (Bld) [#/Vol] 0 10*3/uL Normal 0-5 [facility] Comment on above: Performed By: #### L 300.4310, L300.3900, L100.0100 #### [facility] [address] [place], [address] Platelet mean volume (Bld) [Entitic vol] 9.2 fL Normal 6.2-12.0 [facility] Comment on above: Performed By: #### L 300.4310, L300.3900, L100.0100 #### [facility] [address] [place], [address] Platelets (Bld) [#/Vol] 246 10*3/uL Normal 150-450 [facility] Comment on above: Performed By: #### L 300.4310, L300.3900, L100.0100 #### [facility] [address] [place], [address] RBC (Bld) [#/Vol] 4.34 10*6/uL Normal 4.2-5.4 [facility] Comment on above: Performed By: #### L 300.4310, L300.3900, L100.0100 #### [facility] [address] [place], [address] RDW SD 41.7 fl Normal 35.1-43.9 [facility] Comment on above: Performed By: #### L 300.4310, L300.3900, L100.0100 #### [facility] [address] [place], [address] WBC (Bld) [#/Vol] 7.4 10*3/uL Normal 4.4-11.0 [facility] Comment on above: Performed By: #### L 300.4310, L300.3900, L100.0100 #### [facility] [address] [place], [address] Carbon dioxide measurementOr dered By: Kristin Mckay on 02-28-2024 CO2 [Moles/Vol] 31.0 mmol/L 21.0-32.0 [facility] Chloride measurementOrdered By: Kristin Mckay on 02-28-2024 Chloride [Moles/Vol] 106 mmol/L 98-107 [facility] Comprehensive Metabolic Prof ilon 02-28-2024 Albumin [Mass/Vol] 3.5 g/dL Normal 3.2-5.0 [facility] Comment on above: Performed By: #### L 300.4310, L300.3900, L100.0100 #### [facility] [address] [place], [address] Albumin/Globulin [Mass ratio] 1.1 {ratio} Normal 0.9-2.4 [facility] Comment on above: Performed By: #### L 300.4310, L300.3900, L100.0100 #### [facility] [address] [place], [address] ALK P 59 U/L Normal 45-117 [facility] Comment on above: Performed By: #### L 300.4310, L300.3900, L100.0100 #### [facility] [address] [place], [address] ALT [Catalytic activity/Vol] 14 U/L Normal 13-56 [facility] Comment on above: Performed By: #### L 300.4310, L300.3900, L100.0100 #### [facility] [address] [place], [address] AST [Catalytic activity/Vol] 10 U/L Low 15-37 [facility] Comment on above: Performed By: #### L 300.4310, L300.3900, L100.0100 #### [facility] [address] [place], [address] Bilirubin [Mass/Vol] 0.40 mg/dL Normal 0.20-1.00 [facility] Comment on above: Result Comment: For patients on eltrombopag therapy, use of Dimension [place] TBIL is not recommended. Performed By: #### L 300.4310, L300.3900, L100.0100 #### [facility] [address] [place], [address] BUN/CRE 25.6 RATIO High 10-20 [facility] Comment on above: Performed By: #### L 300.4310, L300.3900, L100.0100 #### [facility] [address] [place], [address] CA,Total 9.0 mg/dL Normal 8.5-10.1 [facility] Comment on above: Performed By: #### L 300.4310, L300.3900, L100.0100 #### [facility] [address] [place], [address] Chloride [Moles/Vol] 106 mmol/L Normal 98-107 [facility] Comment on above: Performed By: #### L 300.4310, L300.3900, L100.0100 #### [facility] [address] [place], [address] CO2 [Moles/Vol] 31.0 mmol/L Normal 21.0-32.0 [facility] Comment on above: Performed By: #### L 300.4310, L300.3900, L100.0100 #### [facility] [address] [place], [address] Creatinine [Mass/Vol] 0.90 mg/dL Normal 0.55-1.02 [facility] Comment on above: Result Comment: The validity of the calculated GFR GFRAA in patients over 70 years has not been determined. Clinical correlation is essential. Performed By: #### L 300.4310, L300.3900, L100.0100 #### [facility] [address] [place], [address] EST GFR - AA 81 mL/min Normal >60 [facility] Comment on above: Result Comment: Afri can Uzbek GFR Calc Performed By: #### L 300.4310, L300.3900, L100.0100 #### [facility] [address] [place], [address] GAP 5 Normal 5-15 [facility] Comment on above: Performed By: #### L 300.4310, L300.3900, L100.0100 #### [facility] [address] [place], [address] GFR/1.73 sq M.predicted among non-blacks MDRD (S/P/Bld) [Vol rate/Area] 67 mL/min/{1.73_m2} Normal >60 [facility] Comment on above: Result Comment: Non- GFR Calc Performed By: #### L 300.4310, L300.3900, L100.0100 #### [facility] [address] [place], [address] Globulin (S) [Mass/Vol] 3.2 g/dL Normal 2.2-4.2 [facility] Comment on above: Performed By: #### L 300.4310, L300.3900, L100.0100 #### [facility] [address] [place], [address] Glucose [Mass/Vol] 99 mg/dL Normal 74-106 [facility] Comment on above: Performed By: #### L 300.4310, L300.3900, L100.0100 #### [facility] [address] [place], [address] Potassium [Moles/Vol] 3.9 mmol/L Normal 3.5-5.1 [facility] Comment on above: Performed By: #### L 300.4310, L300.3900, L100.0100 #### [facility] [address] [place], [address] Sodium [Moles/Vol] 141 mmol/L Normal 136-145 [facility] Comment on above: Performed By: #### L 300.4310, L300.3900, L100.0100 #### [facility] [address] [place], [address] T PROT 6.7 g/dL Normal 6.4-8.2 [facility] Comment on above: Performed By: #### L 300.4310, L300.3900, L100.0100 #### [facility] [address] [place], [address] Urea nitrogen [Mass/Vol] 23 mg/dL High 7-18 [facility] Comment on above: Performed By: #### L 300.4310, L300.3900, L100.0100 #### [facility] [address] [place], [address] Eosinophil percentageOrdered By: Kristin Mckay on 02-28-2024 Eosinophils/100 WBC (Bld) 1.7 % 0-5 [facility] Erythrocyte distribution wid th ratioOrdered By: Kristin Mckay on 02-28-2024 Erythrocyte distribution width (RBC) [Ratio] 13.6 % 11.6-14.6 [facility] Erythrocyte distribution wid th standard deviationOrdered By: Kristin Mckay on 02-28-2024 Erythrocyte distribution width (RBC) [Entitic vol] 41.7 fL 35.1-43.9 [facility] Estimated glomerular filtrat ion rate (GFR) AmericanOrdered By: Kristin Mckay on 02-28-2024 Estimated GFR (MDRD) Amer 81 mL/min >60 [facility] Comment on above: GFR Calc Glomerular filtration rate ( GFR) estimationOrdered By: Kristin Mckay on 02-28-2024 Estimated GFR (MDRD) Non-Af Amer 67 mL/min >60 [facility] Comment on above: Non- GFR Calc Glucose measurementOrdered B y: Kristin Mckay on 02-28-2024 Glucose [Mass/Vol] 99 mg/dL 74-[facility] Hematocrit Auto (Bld) [Volum e fraction]Ordered By: Kristin Mckay on 02-28-2024 Hematocrit (Bld) [Volume fraction] 37.7 % 37-47 [facility] Hemoglobin measurementOrdere d By: Kristin Mckay on 02-28-2024 Hemoglobin (Bld) [Mass/Vol] 12.1 g/dL 12.0-15.0 [facility] Immature granulocytes/100 WB C Auto (Bld)Ordered By: Kristindarrell Mckay on 02-28-2024 Immature granulocytes/100 WBC (Bld) 0.500 % 0.0-0.9 [facility] Comment on above: IG% - Immature Granu locytes (promyelocytes, myelocytes and metamyelocytes) > 1% indicates that a LEFT SHIFT is Present. Laboratory - Chemistry and C hemistry - challengeOrdered By: Kristin Mckay on 02-28-2024 AST [Catalytic activity/Vol] 10 U/L Low 15-37 [facility] Lymphocytes Auto (Unsp spec) [#/Vol]Ordered By: Kristin Mckay on 02-28-2024 Lymphocytes (Bld) [#/Vol] 2.72 10*3/uL 0.83-4.51 [facility] Lymphocytes/100 WBC Auto (Un sp spec)Ordered By: Kristin Mckay on 02-28-2024 Lymphocytes/100 WBC (Bld) 36.6 % 19-41 [facility] MCV (mean corpuscular volume ) determinationOrdered By: Kristin Mckay on 02-28-2024 MCV (RBC) [Entitic vol] 86.9 fL 81-99 [facility] Mean corpuscular hemoglobin (MCH) determinationOrdered By: Kristin Mckay on 02-28-2024 MCH (RBC) [Entitic mass] 27.9 pg 27.0-32.0 [facility] Mean corpuscular hemoglobin concentration (MCHC) determinationOrdered By: Kristin Mckay on 02-28-2024 MCHC (RBC) [Mass/Vol] 32.1 g/dL 32-36 [facility] Mean platelet volume determi nationOrdered By: Kristin Mckay on 02-28-2024 Platelet mean volume (Bld) [Entitic vol] 9.2 fL 6.2-12.0 [facility] Monocyte percentageOrdered B y: Kristin Mckay on 02-28-2024 Monocytes/100 WBC (Bld) 8.2 % 0-10 [facility] Neutrophil percentageOrdered By: Kristin Mckay on 02-28-2024 Neutrophils/100 WBC (Bld) 52.2 % 47-70 [facility] Nucleated red blood cell per centageOrdered By: Kristin Mckay on 02-28-2024 Nucleated RBC/100 WBC (Bld) [Ratio] 0 % 0-5 [facility] Platelet countOrdered By: Shweta Mckay on 02-28-2024 Platelets (Bld) [#/Vol] 246 10*3/uL 150-450 [facility] Potassium measurementOrdered By: Kristin Mckay on 02-28-2024 Potassium [Moles/Vol] 3.9 mmol/L 3.5-5.1 [facility] RBC Auto (Bld) [#/Vol]Ordere d By: Kristin Mckay on 02-28-2024 RBC (Bld) [#/Vol] 4.34 10*6/uL 4.2-5.4 [facility] Serum anion gap measurementO rdered By: Kristin Mckay on 02-28-2024 Anion gap [Moles/Vol] 5 mmol/L 5-15 [facility] Serum globulin measurementOr dered By: Kristin Mckay on 02-28-2024 Globulin (S) [Mass/Vol] 3.2 g/dL 2.2-4.2 [facility] Serum or plasma alanine avery otransferase (ALT) measurementOrdered By: Kristin Mckay on 02-28-2024 ALT [Catalytic activity/Vol] 14 U/L 13-56 [facility] Serum or plasma albumin vazquez urement (mass/volume)Ordered By: Kristin Mckay on 02-28-2024 Albumin [Mass/Vol] 3.5 g/dL 3.2-5.0 [facility] Serum or plasma alkaline glen sphatase measurementOrdered By: Kristin Mckay on 02-28-2024 ALP [Catalytic activity/Vol] 59 U/L 45-117 [facility] Serum or plasma calcium vazquez urement (mass/volume)Ordered By: Kristin Mckay on 02-28-2024 Calcium [Mass/Vol] 9.0 mg/dL 8.5-10.1 [facility] Serum or plasma creatinine m easurement (mass/volume)Ordered By: Kristin Mckay on 02-28-2024 Creatinine [Mass/Vol] 0.90 mg/dL 0.55-1.02 [facility] Comment on above: The validity of the calculated GFR & GFRAA in patients over 70 years has not been determined. Clinical correlation is essential. Serum or plasma urea nitroge n measurement (mass/volume)Ordered By: Kristin Mckay on 02-28-2024 Urea nitrogen [Mass/Vol] 23 mg/dL High 10-22 [facility] Sodium levelOrdered By: Mark Mckay on 02-28-2024 Sodium [Moles/Vol] 141 mmol/L 136-145 [facility] Total proteinOrdered By: Esteban Mckay on 02-28-2024 Protein [Mass/Vol] 6.7 g/dL 6.4-8.2 [facility] White blood cell (WBC) count Ordered By: Kristin Mckay on 02-28-2024 WBC (Bld) [#/Vol] 7.4 10*3/uL 4.4-11.0 [facility] Basic Metabolic Profile (BMP )on 02-12-2024 BUN/CRE 25.7 RATIO High 10-20 [facility] Comment on above: Order Comment: ONLY CARLO Performed By: #### L 500.2500 ####[facility] [address] [place], [address] CA,Total 8.8 mg/dL Normal 8.5-10.1 [facility] Comment on above: Order Comment: ONLY CARLO Performed By: #### L 500.2500 ####[facility] [address] [place], [address] Chloride [Moles/Vol] 106 mmol/L Normal 98-107 [facility] Comment on above: Order Comment: ONLY CARLO Performed By: #### L 500.2500 ####[facility] [address] [place] [id number] CO2 [Moles/Vol] 29.0 mmol/L Normal 21.0-32.0 [facility] Comment on above: Order Comment: ONLY CARLO Performed By: #### L 500.2500 ####[facility] [address] [place] [id number] Creatinine [Mass/Vol] 0.86 mg/dL Normal 0.55-1.02 [facility] Comment on above: Order Comment: ONLY CARLO Result Comment: The validity of the calculated GFR GFRAA in patients over 70 years has not been determined. Clinical correlation is essential. Performed By: #### L 500.2500 ####[facility] [address] [place], [address] EST GFR - AA 86 mL/min Normal >60 [facility] Comment on above: Order Comment: ONLY CARLO Result Comment: Afri can Uzbek GFR Calc Performed By: #### L 500.2500 ####[facility] [address] [place], [address] GAP 4 Low 5-15 [facility] Comment on above: Order Comment: ONLY CARLO Performed By: #### L 500.2500 ####[facility] [address] [place], [address] GFR/1.73 sq M.predicted among non-blacks MDRD (S/P/Bld) [Vol rate/Area] 71 mL/min/{1.73_m2} Normal >60 [facility] Comment on above: Order Comment: ONLY CARLO Result Comment: Non- GFR Calc Performed By: #### L 500.2500 ####[facility] [address] [place], [address] Glucose [Mass/Vol] 113 mg/dL High 74-106 [facility] Comment on above: Order Comment: ONLY CARLO Result Comment: Fast ing Glucose result from 100 to 125 mg/dL suggests IMPAIRED HOMEOSTASIS per A.D.A. criteria. Performed By: #### L 500.2500 ####[facility] [address] [place], [address] Potassium [Moles/Vol] 3.6 mmol/L Normal 3.5-5.1 [facility] Comment on above: Order Comment: ONLY CARLO Performed By: #### L 500.2500 ####[facility] [address] [place], [address] Sodium [Moles/Vol] 139 mmol/L Normal 136-145 [facility] Comment on above: Order Comment: ONLY CARLO Performed By: #### L 500.2500 ####[facility] [address] [place], [address] Urea nitrogen [Mass/Vol] 22 mg/dL High 7-18 [facility] Comment on above: Order Comment: ONLY CARLO Performed By: #### L 500.2500 ####[facility] [address] [place], [address] T4 Free Directon 02-12-2024 T4 FREE DIRECT 1.20 ng/dL Normal 0.76-1.46 [facility] Comment on above: Performed By: #### L 501.9520, L506.0400 ####[facility] [address] [place], [address] Thyroid Stim Hormone (TSH)on 02-12-2024 TSH 0.328 uIU/mL Low 0.358-3.740 [facility] Comment on above: Performed By: #### L 501.9520, L506.0400 ####[facility] [address] [place], [address] Lipid Profileon 01-17-2024 Cholesterol [Mass/Vol] 214 mg/dL High 200 [facility] Comment on above: Order Comment: DR. Nuha PEÑA WAS ALREADY DONE -04-30ADD ON RF COLLECTED 01/11 Result Comment: <200 mg/dL Desirable 200-240 mg/dL Borderline >240 mg/dL High Risk Performed By: #### L 300.4310, L300.3900, L100.0100 #### [facility] [address] [place], [address] Cholesterol in HDL [Mass/Vol] 72 mg/dL Normal [facility] Comment on above: Order Comment: DR. Nuha PEÑA WAS ALREADY DONE 08-06-23 ON RF COLLECTED 01/11 Result Comment: The drugs N-Acetylcysteine and Metamizole may falsely depress this assay. Reference Range HDL <40 mg/dL Low HDL Cholesterol HDL >or= 60 mg/dL High HDL Cholesterol Performed By: #### L 300.4310, L300.3900, L100.0100 #### [facility] [address] [place], [address] Cholesterol in LDL [Mass/Vol] 117 mg/dL Normal 0-130 [facility] Comment on above: Order Comment: DR. Nuha PEÑA WAS ALREADY DONE -24ADD ON RF COLLECTED 01/11 Performed By: #### L 300.4310, L300.3900, L100.0100 #### [facility] [address] [place], [address] Cholesterol in VLDL [Mass/Vol] 25 mg/dL Normal 5-40 [facility] Comment on above: Order Comment: DR. Nuha PEÑA WAS ALREADY DONE 5-24ADD ON RF COLLECTED 01/11 Performed By: #### L 300.4310, L300.3900, L100.0100 #### [facility] [address] [place], [address] Triglyceride [Mass/Vol] 125 mg/dL Normal [facility] Comment on above: Order Comment: DR. Nuha CHE ORDER WAS ALREADY DONE 08-06-23 ON RF COLLECTED 01/11 Result Comment: The drugs N-Acetylcysteine and Metamizole may falsely depress this assay. Serum Triglycerides Reference Interval Normal <150 mg/dL Borderline high 150 - 199 mg/dL High 200 - 499 mg/dL Very High > or = 500 mg/dL Performed By: #### L 300.4310, L300.3900, L100.0100 #### [facility] [address] [place], [place], [address] Thyroid Stim Hormone (TSH)on 01-17-2024 TSH 1.110 uIU/mL Normal 0.358-3.740 [facility] Comment on above: Order Comment: DR. Nuha CHE ORDER WAS ALREADY DONE 08-06-23 ON RF COLLECTED 01/11 Performed By: #### L 300.4310, L300.3900, L100.0100 #### [facility] [address] [place], [place], [address] ANTINUCLEAR ANTIBODIES DIREC Ton 01-13-2024 MISSY,DIRECT Negative Normal Negative [facility] Comment on above: Result Comment: Perf ormed at: [facility] [employer] [id number] Fish Conservationist: Louis Mariee PhD, Phone: [phone] Performed By: #### L 300.4310, L300.3900, L100.0100 #### [facility] [address] [place], [place], [address] CCP IgG Antibodieson 024 CCP IgG Ab. 7 units Normal 0-19 [facility] Comment on above: Result Comment: Nega tive <20 Weak positive 20 - 39 Moderate positive 40 - 59 Strong positive >59 Performed at: [facility] [address] [id number] Fish Conservationist: Louis Mariee PhD, Phone: [phone] Performed By: #### L 300.4310, L300.3900, L100.0100 #### [facility] [address] [place], [address] Rheumatoid Factoron 01-13-20 24 RHEUMATOID FAC < 10.0 Normal <15 [facility] Comment on above: Order Comment: DR. Nuha CHE ORDER WAS ALREADY DONE 08-06-23 ON RF COLLECTED 01/11 Performed By: #### L 300.4310, L300.3900, L100.0100 #### [facility] [address] [place], [address] CBC W/Diff, Automatedon Absolute Lymph 1.89 X10 3/uL Normal 0.83-4.51 [facility] Comment on above: Performed By: #### L 300.4310, L300.3900, L100.0100 #### [facility] [address] [place], [address] Absolute Neut 6.4 X10 3/uL Normal 2.0-7.7 [facility] Comment on above: Performed By: #### L 300.4310, L300.3900, L100.0100 #### [facility] [address] [place], [address] Basophils/100 WBC (Bld) 0.5 % Normal 0-1 [facility] Comment on above: Performed By: #### L 300.4310, L300.3900, L100.0100 #### [facility] [address] [place], [address] Eosinophils/100 WBC (Bld) 1.1 % Normal 0-5 [facility] Comment on above: Performed By: #### L 300.4310, L300.3900, L100.0100 #### [facility] [address] [place], [address] Erythrocyte distribution width (RBC) [Ratio] 13.2 % Normal 11.6-14.6 [facility] Comment on above: Performed By: #### L 300.4310, L300.3900, L100.0100 #### [facility] [address] [place], [address] Hematocrit (Bld) [Volume fraction] 40.9 % Normal 37-47 [facility] Comment on above: Performed By: #### L 300.4310, L300.3900, L100.0100 #### [facility] [address] [place], [address] Hemoglobin (Bld) [Mass/Vol] 13.1 g/dL Normal 12.0-15.0 [facility] Comment on above: Performed By: #### L 300.4310, L300.3900, L100.0100 #### [facility] [address] [place], [address] IG% 0.300 Normal 0.0-0.9 [facility] Comment on above: Result Comment: IG% - Immature Granulocytes (promyelocytes, myelocytes and metamyelocytes) > 1% indicates that a LEFT SHIFT is Present. Performed By: #### L 300.4310, L300.3900, L100.0100 #### [facility] [address] [place], [address] Lymphocytes/100 WBC (Bld) 20.7 % Normal 19-41 [facility] Comment on above: Performed By: #### L 300.4310, L300.3900, L100.0100 #### [facility] [address] [place], [address] MCH (RBC) [Entitic mass] 27.2 pg Normal 27.0-32.0 [facility] Comment on above: Performed By: #### L 300.4310, L300.3900, L100.0100 #### [facility] [address] [place], [address] MCHC (RBC) [Mass/Vol] 32.0 g/dL Normal 32-36 [facility] Comment on above: Performed By: #### L 300.4310, L300.3900, L100.0100 #### [facility] [address] [place], [address] MCV (RBC) [Entitic vol] 85.0 fL Normal 81-99 [facility] Comment on above: Performed By: #### L 300.4310, L300.3900, L100.0100 #### [facility] [address] [place], [address] Monocytes/100 WBC (Bld) 7.0 % Normal 0-10 [facility] Comment on above: Performed By: #### L 300.4310, L300.3900, L100.0100 #### [facility] [address] [place], [address] Neutrophils/100 WBC (Bld) 70.4 % High 47-70 [facility] Comment on above: Performed By: #### L 300.4310, L300.3900, L100.0100 #### [facility] [address] [place], [address] Nucleated RBC (Bld) [#/Vol] 0 10*3/uL Normal 0-5 [facility] Comment on above: Performed By: #### L 300.4310, L300.3900, L100.0100 #### [facility] [address] [place], [address] Platelet mean volume (Bld) [Entitic vol] 10.4 fL Normal 6.2-12.0 [facility] Comment on above: Performed By: #### L 300.4310, L300.3900, L100.0100 #### [facility] [address] [place], [address] Platelets (Bld) [#/Vol] 265 10*3/uL Normal 150-450 [facility] Comment on above: Performed By: #### L 300.4310, L300.3900, L100.0100 #### [facility] [address] [place], [address] RBC (Bld) [#/Vol] 4.81 10*6/uL Normal 4.2-5.4 [facility] Comment on above: Performed By: #### L 300.4310, L300.3900, L100.0100 #### [facility] [address] [place], [address] RDW SD 40.6 fl Normal 35.1-43.9 [facility] Comment on above: Performed By: #### L 300.4310, L300.3900, L100.0100 #### [facility] [address] [place], [address] WBC (Bld) [#/Vol] 9.1 10*3/uL Normal 4.4-11.0 [facility] Comment on above: Performed By: #### L 300.4310, L300.3900, L100.0100 #### [facility] [address] [place], [address] CRPon 01-12-2024 C-REACTIVE PROT 8.76 mg/L High 0.0-3.0 [facility] Comment on above: Order Comment: DR. Nuha CHE ORDER WAS ALREADY DONE 08-06-23 Result Comment: C-Re active Protein (CRP) provides useful information for the diagnosis, therapy and monitoring of inflammatory processes and associated diseases. For the evaluation of Relative Risk for Cardiovascular Disease, a High Sensitivity CRP (HSCRP) should be ordered. Performed By: #### L 300.4310, L300.3900, L100.0100 #### [facility] [address] [place], [address] Comprehensive Metabolic Prof ilon 01-12-2024 Albumin [Mass/Vol] 3.7 g/dL Normal 3.2-5.0 [facility] Comment on above: Order Comment: DR. Nuha PEÑA WAS ALREADY DONE -24 Performed By: #### L 300.4310, L300.3900, L100.0100 #### [facility] [address] [place], [address] Albumin/Globulin [Mass ratio] 1.0 {ratio} Normal 0.9-2.4 [facility] Comment on above: Order Comment: DR. Nuha PEÑA WAS ALREADY DONE -24 Performed By: #### L 300.4310, L300.3900, L100.0100 #### [facility] [address] [place], [address] ALK P 70 U/L Normal 45-117 [facility] Comment on above: Order Comment: DR. Nuha PEÑA WAS ALREADY DONE -24 Performed By: #### L 300.4310, L300.3900, L100.0100 #### [facility] [address] [place], [address] ALT [Catalytic activity/Vol] 18 U/L Normal 13-56 [facility] Comment on above: Order Comment: DR. Nuha PEÑA WAS ALREADY DONE -24 Performed By: #### L 300.4310, L300.3900, L100.0100 #### [facility] [address] [place], [address] AST [Catalytic activity/Vol] 14 U/L Low 15-37 [facility] Comment on above: Order Comment: DR. Nuha PEÑA WAS ALREADY DONE 5--24 Performed By: #### L 300.4310, L300.3900, L100.0100 #### [facility] [address] [place], [address] Bilirubin [Mass/Vol] 0.50 mg/dL Normal 0.20-1.00 [facility] Comment on above: Order Comment: DR. Nuha CHE ORDER WAS ALREADY DONE 5--24 Result Comment: For patients on eltrombopag therapy, use of Dimension [place] TBIL is not recommended. Performed By: #### L 300.4310, L300.3900, L100.0100 #### [facility] [address] [place], [address] BUN/CRE 26.2 RATIO High 10-20 [facility] Comment on above: Order Comment: DR. Nuha PEÑA WAS ALREADY DONE 5-04-30 Performed By: #### L 300.4310, L300.3900, L100.0100 #### [facility] [address] [place], [address] CA,Total 9.7 mg/dL Normal 8.5-10.1 [facility] Comment on above: Order Comment: DR. Nuha PEÑA WAS ALREADY DONE -04-30 Performed By: #### L 300.4310, L300.3900, L100.0100 #### [facility] [address] [place], [address] Chloride [Moles/Vol] 105 mmol/L Normal 98-107 [facility] Comment on above: Order Comment: DR. Nuha PEÑA WAS ALREADY DONE -24 Performed By: #### L 300.4310, L300.3900, L100.0100 #### [facility] [address] [place], [address] CO2 [Moles/Vol] 27.0 mmol/L Normal 21.0-32.0 [facility] Comment on above: Order Comment: DR. Nuha PEÑA WAS ALREADY DONE 5--24 Performed By: #### L 300.4310, L300.3900, L100.0100 #### [facility] [address] [place], [address] Creatinine [Mass/Vol] 1.03 mg/dL High 0.55-1.02 [facility] Comment on above: Order Comment: DR. Nuha PEÑA WAS ALREADY DONE 08-06-23 Result Comment: The validity of the calculated GFR GFRAA in patients over 70 years has not been determined. Clinical correlation is essential. Performed By: #### L 300.4310, L300.3900, L100.0100 #### [facility] [address] [place], [address] EST GFR - AA 69 mL/min Normal >60 [facility] Comment on above: Order Comment: DR. Nuha PEÑA WAS ALREADY DONE 08-06-23 Result Comment: Afri can Uzbek GFR Calc Performed By: #### L 300.4310, L300.3900, L100.0100 #### [facility] [address] [place], [address] GAP 9 Normal 5-15 [facility] Comment on above: Order Comment: DR. Nuha PEÑA WAS ALREADY DONE 08-06-23 Performed By: #### L 300.4310, L300.3900, L100.0100 #### [facility] [address] [place], [address] GFR/1.73 sq M.predicted among non-blacks MDRD (S/P/Bld) [Vol rate/Area] 57 mL/min/{1.73_m2} Low >60 [facility] Comment on above: Order Comment: DR. Nuha PEÑA WAS ALREADY DONE 08-06-23 Result Comment: Non- GFR Calc Performed By: #### L 300.4310, L300.3900, L100.0100 #### [facility] [address] [place], [address] Globulin (S) [Mass/Vol] 3.7 g/dL Normal 2.2-4.2 [facility] Comment on above: Order Comment: DR. Nuha PEÑA WAS ALREADY DONE 5-1-24 Performed By: #### L 300.4310, L300.3900, L100.0100 #### [facility] [address] [place], [address] Glucose [Mass/Vol] 98 mg/dL Normal 74-106 [facility] Comment on above: Order Comment: DR. Nuha PEÑA WAS ALREADY DONE 5-24 Performed By: #### L 300.4310, L300.3900, L100.0100 #### [facility] [address] [place], [address] Potassium [Moles/Vol] 3.3 mmol/L Low 3.5-5.1 [facility] Comment on above: Order Comment: DR. Nuha PEÑA WAS ALREADY DONE 24 Performed By: #### L 300.4310, L300.3900, L100.0100 #### [facility] [address] [place], [address] Sodium [Moles/Vol] 141 mmol/L Normal 136-145 [facility] Comment on above: Order Comment: DR. Nuha PEÑA WAS ALREADY DONE 24 Performed By: #### L 300.4310, L300.3900, L100.0100 #### [facility] [address] [place], [address] T PROT 7.4 g/dL Normal 6.4-8.2 [facility] Comment on above: Order Comment: DR. Nuha PEÑA WAS ALREADY DONE 5-24 Performed By: #### L 300.4310, L300.3900, L100.0100 #### [facility] [address] [place], [address] Urea nitrogen [Mass/Vol] 27 mg/dL High 7-18 [facility] Comment on above: Order Comment: DR. Nuha PEÑA WAS ALREADY DONE -24 Performed By: #### L 300.4310, L300.3900, L100.0100 #### [facility] [address] [place], [address] Erythrocyte Sed Rateon 01-11 SED RATE 6 mm/hr Normal 0-30 [facility] Comment on above: Performed By: #### L 300.4310, L300.3900, L100.0100 #### [facility] [address] [place], [address] Hepatitis B Surface Antibody on 01-12-2024 HEP B Surf Ab Non-Reactive Normal [facility] Comment on above: Result Comment: Non Reactive: Inconsistent with immunity less than <10 mIU/mL Reactive: Consistent with immunity greater than or equal to 10 mIU/mL Performed By: #### L 300.4310, L300.3900, L100.0100 #### [facility] [address] [place], [address] Hepatitis B Surface Antigeno n 01-12-2024 HEP B Surf Ag Non-Reactive Normal Nonreactive [facility] Comment on above: Performed By: #### L 300.4310, L300.3900, L100.0100 #### [facility] [address] [place], [address] Hepatitis C Antibodyon 01-11 Hepatitis C AB Non-Reactive Normal Nonreactive [facility] Comment on above: Result Comment: Non Reactive: < 0.8 Equivocal: >/= 0.8 to < 1.0 Reactive: >/= 1.0 The CDC requires that a reactive/equivocal HCV antibody result be sent out for confirmation. HCV Quant by PCR testing. Performed By: #### L 300.4310, L300.3900, L100.0100 #### [facility] [address] [place], [address] Pelvis 1 or 2 Viewson 2023 Pelvis 1 or [address] [facility] Services [address] [place], [place] [id number] ([address] Pelvis 1 or 2 Views MR#: [id number] Acct: [id number] Name: GINETTE MACKENZIE R Rep #: [id number] : 1960 F 63 From: Óscar Rome PCP: Dr. Win Matos MD Status: REG CLI Study: Pelvis 1 or 2 Views Date of Exam: 01/12/24 Exam# [id number] Ordering Dr: Kristin Mckay MD [id number] INDICATION: INFLAMMATORY POLYARTHROPATHY EXAMINATION/TECHNIQUE: X-RAY - XR Pelvis 1 or 2 Views COMPARISON: None. FINDINGS: PELVIC BONES: No displaced fracture, destructive or sclerotic lesions. Note that overlapping bowel shadows may however obscure fine detail. Sacroiliac joints are unremarkable. No widening of the pubic symphysis. HIPS: The articular structures are unremarkable. There is moderate osteophyte formation involving the acetabular roof greater on the LEFT than RIGHT. No evidence of fracture or dislocation. SOFT TISSUES: No soft tissue swelling or gas. RAD/Pelvis 1 or 2 Views IMPRESSION: 1. No evidence of displaced pelvic or hip fracture. 2. Osteophyte formation involving the acetabular roof bilaterally greater on LEFT than RIGHT. Disc spaces maintained. Normal appearance pelvic ring. Electronically Signed: Óscar Staples MD at 23:51 EDT , CC: Dr. Kristin Mckay MD; Dr. Win Matos MD Marketing Proposal Specialist: Signed Normal [facility] Knee 4 or More Viewson 12-30 Knee 4 or More Views [facility] [address] [place] [address] Knee 4 or More Views MR#: [id number] Acct: [id number] Name: GINETTE MACKENZIE R Rep #: [id number] : 1960 F 63 From: Jose rainey MD PCP: Dr. Win Matos MD Status: DEP AMB Study: Knee 4 or More Views Date of Exam: 12/31/23 Exam# [id number] Ordering Dr: Abisai Roman DO [id number] STUDY: X-RAY - LEFT KNEE REASON FOR EXAM: Female, 63 years old. pain TECHNIQUE: 4 view(s) of the knee. COMPARISON: 09/04/2017. FINDINGS: Normal visualized distal femur. Normal visualized proximal tibia and fibula. Normal proximal tibiofibular articulation. There is no demonstrated fracture. There is severe degenerative arthrosis of the medial femorotibial compartment with severe joint space narrowing. There is mild degenerative arthrosis of the lateral femorotibial compartment. There is moderate degenerative arthrosis of the patellofemoral articulation. There is a soft tissue prominence in the suprapatellar region suggesting a small volume joint effusion. The soft tissue structures are unremarkable. RAD/Knee 4 or More Views IMPRESSION: Moderate to severe multilevel degenerative changes. Prominent progression medially since prior study. Electronically Signed: Jose Lira MD at 23:00 EDT Reading Location ID and State: [address] [place] [address] , Service support , CC: Dr. Abisai Roman DO; Dr. Win Matos MD Marketing Proposal Specialist: Signed Normal [facility] Knee 4 or More Views [facility] [address] [place] [address] Knee 4 or More Views MR#: [id number] Acct: [id number] Name: GINETTE MACKENZIE Rep #: [id number] : 1960 F 63 From: Jose rainey MD PCP: Dr. Win Matos MD Status: DEP AMB Study: Knee 4 or More Views Date of Exam: 12/31/23 Exam# [id number] Ordering Dr: Abisai Roman DO [id number] STUDY: X-RAY - RIGHT KNEE REASON FOR EXAM: Female, 63 years old. pain TECHNIQUE: 4 view(s) of the knee. COMPARISON: 07/03/2020. FINDINGS: Normal visualized distal femur. Normal visualized proximal tibia and fibula. Normal proximal tibiofibular articulation. There is no demonstrated fracture. There is severe degenerative arthrosis of the medial femorotibial compartment with severe joint space narrowing. Normal lateral femorotibial compartment. There is severe degenerative arthrosis of the patellofemoral articulation. There is a soft tissue prominence in the suprapatellar region suggesting a small volume joint effusion. The soft tissue structures are unremarkable. RAD/Knee 4 or More Views IMPRESSION: Severe multicompartment degenerative changes. Findings are grossly stable. Electronically Signed: Jose Lira MD at 22:58 EDT , CC: Dr. Abisai Roman DO; Dr. Win Matos MD Marketing Proposal Specialist: Signed Normal [facility] Orthopedic Visit Reporton Orthopedic Visit Report [facility] [address] [place] [address] OFFICE VISIT Date of Service: 12/31/23 MR#: [id number] Acct: [id number] Name: GINETTE MACKENZIE Rep #: [id number] : 1960 Provider: Dr. Abisai neil DO Age/Sex: 63/F Location[place] [facility] Status: Signed Intake Vital Signs 07/19/23 18:54 12/22/23 09:10 12/31/23 15:47 Height 5 ft 4 in 5 ft 4 in 5 ft 4 in Weight: 241 lb 8 oz BMI 41.4 Intake Visit Reasons: BILATERAL KNEES Allergies latex Allergy (Verified 08/29/23 10:53) Itching Medications ???Medication ???Instructions ???Recorded ???Confirmed ???Type omeprazole 20 mg capsule,delayed 20 mg PO DAILY 03/11/18 12/31/23 History release valsartan 320 1 ea PO DAILY 03/11/18 12/31/23 History mg-hydrochlorothiazide 12.5 mg tablet metoprolol tartrate 25 mg tablet 25 mg PO BID #180 tabs 04/05/21 12/31/23 Rx levothyroxine 125 mcg tablet 125 mcg PO DAILY #90 tabs 03/21/23 12/31/23 Rx potassium chloride 10 mEq 10 meq PO DAILY 06/13/23 12/31/23 History capsule,extended release [id number] 18 mg-mfolate 1 tab PO DAILY 06/24/23 12/31/23 History 800 mcg DFE-vit K 150 mcg-herb tablet (Alive Women's Ultra Potency) ferrous sulfate 325 mg (65 mg 325 mg PO DAILY 08/29/23 12/31/23 History iron) tablet mirtazapine 7.5 mg tablet 7.5 mg PO QHS 08/29/23 12/31/23 History gabapentin 100 mg capsule 100 mg PO BID 12/31/23 12/31/23 History PFSH Medical History PONV (postoperative nausea and vomiting) Arthritis Easy bruising Back pain Gastric reflux Non-smoker Cardiology follow-up encounter Postoperative primary hypothyroidism Thyroid cancer COVID-19 virus detected (01/2020) Obesity Essential hypertension Endometrial hyperplasia without atypia, simple Daytime somnolence Peripheral neuropathy Bigeminy Premature ventricular contractions Postmenopausal bleeding Surgical History Status post laminectomy History of laparoscopic-assisted vaginal hysterectomy (06/04/18) [place] teeth extracted History of cervical polypectomy History of removal of neck cyst History of thyroid surgery Family History Unknown No problems noted. Social History adopted: Yes (does not know medical history) Smoking Status: Never smoker alcohol intake: never substance use type: does not use caffeine: No what type of physical activity do you participate in: other details: yard work HPI BILATERAL KNEES Details: This documentation accurately reflects the service provided and the decisions made by me, Dr. Abisai Roman, DO 12/31/23 0959. Part of today???s visit was documented by Jacquie ADAN, acting as scribe. GINETTE MACKENZIE is a 63 year old F here today for bilateral knee pain. She has had an injection in both knees before but it has been while. Her knee pain has been bad for most of the summer but is getting worse over time. She does take Ibuprofen 800mg. She has tried meloxicam in the past but it doesn't help with her pain. Ortho Exam General General: Yes no acute distress Neurologic: Yes alert and Yes oriented x3 Psychologic: Yes reasonable and appropriate Right Knee Skin/Wound: No erythema, No ecchymosis and No swelling Homans Sign: No Knee ROM: Yes ROM-Extension -20 to 0 (-5) and Yes ROM-Flexion 0-140 (85) Examination: Yes Med jt line tenderness and Yes Lat jt line tenderness Stability: NML: Anterior Drawer and 1+: Valgus 0 (Due to medial joint space narrowing) and 1+: Valgus 30 Patella Translation: 1 KNEE: synovial hypertrophy but no effusion small bakers cyst Left Knee Skin/Wound: No ecchymosis, No erythema and Yes swelling Knee ROM: Yes ROM-Extension -20 to 0 and Yes ROM-Flexion 0-140 (88) Examination: Yes med jt line tenderness and Yes Lat jt line tenderness Stability: NML: Anterior Drawer, NML: Posterior Drawer and NML: Varus 0 and 1+: Valgus 0 (Due to medial joint space narrowing) and 1+: Valgus 30 Apprehension with Lateral Translation: No Patella Translation: 1 KNEE: synovial hypertrophy but no effusion Supplemental Info 12/31/2023 x-ray left knee: Advanced medial compartment arthrosis joint space narrowing severe patellofemoral arthrosis with joint space narrowing and spurring 12/31/2023 x-ray right knee: Severe medial compartment arthrosis with joint space narrowing varus deformity moderate patellofemoral arthrosis 07/03/2020 X-ray right knee: Severe degenerative arthrosis of the medial femorotibial compartment Coding Level of Care Code Off vis,est,level 3 Diagnoses Obesity E66.9 Obesity type: due to excess calories Right knee D (more content not included)... Normal [facility] Absolute lymphocyte countOrd ered By: Chaitanya Leblanc on 08-06-2023 Lymphocytes Auto (Unsp spec) [#/Vol] 1.25 10*3/uL 0.83-4.51 [facility] Automated lymphocyte count a s percentage of total leukocytesOrdered By: Chaitanya Leblanc on 08-06-2023 Lymphocytes/100 WBC Auto (Unsp spec) 16.9 % 19-41 [facility] Basophil percentageOrdered B y: Chaitanya Leblanc on 08-06-2023 Basophils/100 WBC (Bld) 0.5 % 0-1 [facility] Bilirubin [Mass/Vol] 0.40 mg/dL 0.20-1.00 [facility] Comment on above: For patients on eltr ombopag therapy, use of Dimension [place] TBIL is not recommended. Chloride [Moles/Vol] 105 mmol/L 98-107 [facility] Eosinophils/100 WBC (Bld) 1.2 % 0-5 [facility] Glucose [Mass/Vol] 120 mg/dL 74-106 [facility] Comment on above: Fasting Glucose resu lt from 100 to 125 mg/dL suggests IMPAIRED HOMEOSTASIS per A.D.A. criteria. Hemoglobin (Bld) [Mass/Vol] 12.7 g/dL 12.0-15.0 [facility] Monocytes/100 WBC (Bld) 8.0 % 0-10 [facility] Neutrophils (Bld) [#/Vol] 5.4 10*3/uL 2.0-7.7 [facility] Neutrophils/100 WBC (Bld) 73.0 % 47-70 [facility] Potassium [Moles/Vol] 3.3 mmol/L 3.5-5.1 [facility] Protein [Mass/Vol] 7.4 g/dL 6.4-8.2 [facility] Sodium [Moles/Vol] 139 mmol/L 136-145 [facility] WBC (Bld) [#/Vol] 7.4 10*3/uL 4.4-11.0 [facility] Determination of erythrocyte mean corpuscular volume (MCV)Ordered By: Chaitanya Leblanc on 08-06-2023 MCV (RBC) [Entitic vol] 86.3 fL 81-99 [facility] Erythrocyte distribution wid th ratioOrdered By: Chaitanyabrandan Leblanc on 08-06-2023 Erythrocyte distribution width (RBC) [Ratio] 12.5 % 11.6-14.6 [facility] Erythrocyte distribution wid th standard deviationOrdered By: Chaitanya Leblanc on 08-06-2023 Erythrocyte distribution width (RBC) [Entitic vol] 38.9 fL 35.1-43.9 [facility] Hematocrit Auto (Bld) [Volum e fraction]Ordered By: Chaitanya Leblanc on 08-06-2023 Hematocrit (Bld) [Volume fraction] 39.2 % 37-47 [facility] Immature granulocytes/100 WB C Auto (Bld)Ordered By: Chaitanya Leblanc on 08-06-2023 Immature granulocytes/100 WBC (Bld) 0.400 % 0.0-0.9 [facility] Comment on above: IG% - Immature Granu locytes (promyelocytes, myelocytes and metamyelocytes) > 1% indicates that a LEFT SHIFT is Present. Laboratory - Chemistry and C hemistry - challengeOrdered By: [facility] on 08-06-2023 Albumin/Globulin [Mass ratio] 1.1 {ratio} 0.9-2.4 [facility] ALP [Catalytic activity/Vol] 57 U/L 45-117 [facility] ALT [Catalytic activity/Vol] 30 U/L 13-56 [facility] CO2 [Moles/Vol] 27.0 mmol/L 21.0-32.0 [facility] Globulin (S) [Mass/Vol] 3.6 g/dL 2.2-4.2 [facility] Urea nitrogen/Creatinine [Mass ratio] 13.8 mg/mg 10-20 [facility] Laboratory - Hematology and Cell countsOrdered By: Chaitanya Leblanc on 08-06-2023 MCH (RBC) [Entitic mass] 28.0 pg 27.0-32.0 [facility] MCHC (RBC) [Mass/Vol] 32.4 g/dL 32-36 [facility] Nucleated RBC/100 WBC (Bld) [Ratio] 0 % 0-5 [facility] Platelet mean volume (Bld) [Entitic vol] 9.5 fL 6.2-12.0 [facility] Platelets (Bld) [#/Vol] 256 10*3/uL 150-450 [facility] No Panel InformationOrdered By: Chaitanya Leblanc on 08-06-2023 Estimated GFR (MDRD) Amer 77 mL/min >60 [facility] Comment on above: GFR Calc Estimated GFR (MDRD) Non-Af Amer 64 mL/min >60 [facility] Comment on above: Non- GFR Calc Thyroglobulin Antibody < 1.0 IU/mL 0.0-0.9 [facility] Comment on above: Thyroglobulin Antibo dy measured by Eileen CoulterMethodologyIt should be noted that the presence of thyroglobulinantibodies may not be pathogenic nor diagnostic, especiallyat very low levels. The assay furnace room supervisor has found thatfour percent of individuals without evidence of thyroiddisease or autoimmunity will have positive TgAb levels upto 4 IU/mL. Thyroglobulin Level < 0.1 ng/mL 1.5-38.5 [facility] Comment on above: According to the [facility] [employer] Clinical [employer],the reference interval for Thyroglobulin (TG) should berelated to euthyroid patients and not for patients whounderwent thyroidectomy. TG reference intervals for thesepatients depend on the residual mass of the thyroid tissueleft after surgery. Establishing a post-operative baselineis recommended. The assay limit of quantitation is 0.1ng/mLThyroglobulin measured by Qubit ImmunometricAssayPerformed at: - [facility] [id number] Director: Louis Mariee PhD, Phone: [phone] RBC Auto (Bld) [#/Vol]Ordere d By: Chaitanya Leblanc on 08-06-2023 RBC (Bld) [#/Vol] 4.54 10*6/uL 4.2-5.4 [facility] Serum or plasma calcium vazquez urement (mass/volume)Ordered By: Chaitanya Leblanc on 08-06-2023 Calcium [Mass/Vol] 9.8 mg/dL 8.5-10.1 [facility] Serum or plasma creatinine m easurement (mass/volume)Ordered By: Chaitanya Leblanc on 08-06-2023 Creatinine [Mass/Vol] 0.94 mg/dL 0.55-1.02 [facility] Comment on above: The validity of the calculated GFR & GFRAA in patients over 70 years has not been determined. Clinical correlation is essential. Serum or plasma thyroid stim ulating hormone (TSH) measurement (units/volume)Ordered By: Chaitanya Leblanc on 08-06-2023 TSH Qn 0.13 uIU/mL 0.358-3.74 [facility] Serum or plasma urea nitroge n measurement (mass/volume)Ordered By: Chaitanya Leblanc on 08-06-2023 Urea nitrogen [Mass/Vol] 13 mg/dL 7-18 [facility] Thin prep Papanicolaou smear with manual screeningOrdered By: Chaitanyabrandan Leblanc on 08-06-2023 Thin prep Papanicolaou smear with manual screening 3.8 g/dL 3.2-5.0 [facility] Thin prep Papanicolaou smear with manual screening 17 U/L 15-37 [facility] Thin prep Papanicolaou smear with manual screening 7 5-15 [facility] Thin prep Papanicolaou smear with manual screening 1.49 ng/dL 0.76-1.46 [facility] Absolute lymphocyte countOrd ered By: Louis Gilbert on 07-15-2023 Lymphocytes Auto (Unsp spec) [#/Vol] 1.26 10*3/uL 0.83-4.51 [facility] Automated lymphocyte count a s percentage of total leukocytesOrdered By: Louis Gilbert on 07-15-2023 Lymphocytes/100 WBC Auto (Unsp spec) 14.5 % 19-41 [facility] Basophil percentageOrdered B y: Louis Gilbert on 07-15-2023 Basophils/100 WBC (Bld) 0.2 % 0-1 [facility] Chloride [Moles/Vol] 106 mmol/L 98-107 [facility] Eosinophils/100 WBC (Bld) 0.9 % 0-5 [facility] Glucose [Mass/Vol] 97 mg/dL 74-106 [facility] Hemoglobin (Bld) [Mass/Vol] 11.2 g/dL 12.0-15.0 [facility] Monocytes/100 WBC (Bld) 9.8 % 0-10 [facility] Neutrophils (Bld) [#/Vol] 6.4 10*3/uL 2.0-7.7 [facility] Neutrophils/100 WBC (Bld) 74.3 % 47-70 [facility] Potassium [Moles/Vol] 3.7 mmol/L 3.5-5.1 [facility] Sodium [Moles/Vol] 139 mmol/L 136-145 [facility] WBC (Bld) [#/Vol] 8.7 10*3/uL 4.4-11.0 [facility] Determination of erythrocyte mean corpuscular volume (MCV)Ordered By: Louis Gilbert on 07-15-2023 MCV (RBC) [Entitic vol] 87.8 fL 81-99 [facility] Erythrocyte distribution wid th ratioOrdered By: Louis Gilbert on 07-15-2023 Erythrocyte distribution width (RBC) [Ratio] 13.1 % 11.6-14.6 [facility] Erythrocyte distribution wid th standard deviationOrdered By: Louis Gilbert on 07-15-2023 Erythrocyte distribution width (RBC) [Entitic vol] 42.0 fL 35.1-43.9 [facility] Hematocrit Auto (Bld) [Volum e fraction]Ordered By: Louis Gilbert on 07-15-2023 Hematocrit (Bld) [Volume fraction] 34.4 % 37-47 [facility] Immature granulocytes/100 WB C Auto (Bld)Ordered By: Louis Gilbert on 07-15-2023 Immature granulocytes/100 WBC (Bld) 0.300 % 0.0-0.9 [facility] Comment on above: IG% - Immature Granu locytes (promyelocytes, myelocytes and metamyelocytes) > 1% indicates that a LEFT SHIFT is Present. Laboratory - Chemistry and C hemistry - challengeOrdered By: Louis Gilbert on 07-15-2023 CO2 [Moles/Vol] 28.0 mmol/L 21.0-32.0 [facility] Urea nitrogen/Creatinine [Mass ratio] 15.3 mg/mg 10-20 [facility] Laboratory - Hematology and Cell countsOrdered By: Louis Gilbert on 07-15-2023 MCH (RBC) [Entitic mass] 28.6 pg 27.0-32.0 [facility] MCHC (RBC) [Mass/Vol] 32.6 g/dL 32-36 [facility] Nucleated RBC/100 WBC (Bld) [Ratio] 0 % 0-5 [facility] Platelet mean volume (Bld) [Entitic vol] 9.1 fL 6.2-12.0 [facility] Platelets (Bld) [#/Vol] 207 10*3/uL 150-450 [facility] No Panel InformationOrdered By: Louis Gilbert on 07-15-2023 Estimated Creatinine Clearance Calc 81.30 ml/min [facility] Estimated GFR (MDRD) Amer 87 mL/min >60 [facility] Comment on above: GFR Calc Estimated GFR (MDRD) Non-Af Amer 72 mL/min >60 [facility] Comment on above: Non- GFR Calc RBC Auto (Bld) [#/Vol]Ordere d By: Louis Gilbert on 07-15-2023 RBC (Bld) [#/Vol] 3.92 10*6/uL 4.2-5.4 [facility] Serum or plasma calcium vazquez urement (mass/volume)Ordered By: Louis Gilbert on 07-15-2023 Calcium [Mass/Vol] 8.8 mg/dL 8.5-10.1 [facility] Serum or plasma creatinine m easurement (mass/volume)Ordered By: Louis Gilbert on 07-15-2023 Creatinine [Mass/Vol] 0.85 mg/dL 0.55-1.02 [facility] Comment on above: The validity of the calculated GFR & GFRAA in patients over 70 years has not been determined. Clinical correlation is essential. Serum or plasma urea nitroge n measurement (mass/volume)Ordered By: Louis Gilbert on 07-15-2023 Urea nitrogen [Mass/Vol] 13 mg/dL 7-18 [facility] Thin prep Papanicolaou smear with manual screeningOrdered By: Louis Gilbert on 07-15-2023 Thin prep Papanicolaou smear with manual screening 5 5-15 [facility] Thin prep Papanicolaou smear with manual screeningOrdered By: Stiven Gunn on 07-14-2023 Thin prep Papanicolaou smear with manual screening 101 mg/dL 74-106 [facility] Comment on above: MANAGEMENT OF PATIEN T CARE PER NURSING PROTOCOL Activated partial thrombopla stin time (aPTT) in platelet poor plasma by coagulation aOrdered By: Tony Hernandez on 06-25-2023 aPTT Coag (PPP) [Time] 24.5 s 24.1-36.2 [facility] Basophil percentageOrdered B y: Tony Hernandez on 06-25-2023 Bilirubin [Mass/Vol] 0.30 mg/dL 0.20-1.00 [facility] Comment on above: For patients on eltr ombopag therapy, use of Dimension [place] TBIL is not recommended. Protein [Mass/Vol] 6.8 g/dL 6.4-8.2 [facility] Direct bilirubinOrdered By: Tony Hernandez on 06-25-2023 Bilirubin.direct [Mass/Vol] 0.11 mg/dL 0.00-0.30 [facility] HIV 1 and HIV-2 antibody ass ay with HIV-1 p24 antigen detectionOrdered By: Stiven Gunn on 06-25-2023 HIV 1+2 Ab+HIV1 p24 Ag IA Ql Non-Reactive Nonreactive [facility] Laboratory - Chemistry and C hemistry - challengeOrdered By: Tony Hernandez on 06-25-2023 ALP [Catalytic activity/Vol] 63 U/L 45-117 [facility] ALT [Catalytic activity/Vol] 21 U/L 13-56 [facility] Globulin (S) [Mass/Vol] 3.4 g/dL 2.2-4.2 [facility] Magnesium [Mass/Vol] 2.4 mg/dL 1.6-2.6 [facility] Laboratory - CoagulationOrde red By: Tony Hernandez on 06-25-2023 INR Coag (Bld) [Relative time] 1.0 {INR} [facility] PT Coag (PPP) [Time] 12.7 s 11.7-14.9 [facility] No Panel InformationOrdered By: Stiven Gunn on 06-25-2023 Hepatitis A Antibody Total Negative Negative [facility] Comment on above: Comment: The HAV tot al antibody assay detects both IgG andIgM but does not differentiate between them. A negativeresult suggests susceptibility to infection. A positiveresult could be due to vaccination, previously resolvedinfection or active infection. Testing for HAV IgM shouldbe performed if active HAV infection is suspected. Labcorpoffers profiles that will automatically reflex positive HAVtotal antibody results to IgM (e.g., panel #[id number] HAVAntibody w/ Rfx).Performed at: [facility] [place] [id number] Director: Louis Mariee PhD, Phone: [phone] Hepatitis C Antibody Non-Reactive Nonreactive [facility] Comment on above: Non Reactive: < 0.8 Equivocal: >/= 0.8 to < 1.0 Reactive: >/= 1.0The CDC requires that a reactive/equivocal HCV antibody result be sent out for confirmation. HCV Quant by PCR testing. Nasal Screen MRSA/MSSA [facility] Serum hepatitis B virus surf ignacio antibody IgG detectionOrdered By: Stiven Gunn on 06-25-2023 HBV surface IgG Ql (S) Non-Reactive [facility] Comment on above: Non Reactive: Incons istent with immunity less than <10 mIU/mL Reactive: Consistent with immunity greater than or equal to 10 mIU/mL Serum or plasma thyroid stim ulating hormone (TSH) measurement (units/volume)Ordered By: Tony Hernandez on 06-25-2023 TSH Qn 0.98 uIU/mL 0.358-3.74 [facility] Thin prep Papanicolaou smear with manual screeningOrdered By: Tony Hernandez on 06-25-2023 Thin prep Papanicolaou smear with manual screening 3.4 g/dL 3.2-5.0 [facility] Thin prep Papanicolaou smear with manual screening 13 U/L 15-37 [facility] CNOVon 04-21-2023 CNOV Office Visit (OBGYWM ) ----- GINETTE MACKENZIE ([id number]) 1960 F Date Time Provider Department 04/21/23 3:45 PM ANIL ORTEZ During your visit today, we recorded the following information about you: Blood pressure Weight Height 132/84 112.5 kg 1.626 m Anil Ortez, [employer].ELECTRIC INSTALLER 04/21/2023 4:57 PM Signed Ginette is a 63 year old who presents for an annual gynecologic exam without complaints. Postmenopausal: Yes, hysterectomy 2019 - menorrhagia and cancerous cells of cervix per patient HRT use: No. 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 Unknown details of past pap smears so pap of vaginal cuff was done. Mammogram ordered at [facility], hx of lipoma that is followed by [facility] Self breast awareness encouraged. Nutrition, [...] for clobetasol use given, not intended for prison use Anil Ortez APRN.Anil Becerril APRN.CNP 04/21/2023 4:20 PM Addendum Use coconut oil for vaginal dryness. Use clobetasol cream nightly for 4 weeks. Apply a thin layer at bedtime. Then every other day for 4 weeks. Then twice a week for 4 weeks. Then PRN hydrocortisone. Lichen Sclerosus Lichen means white and mosslike. Sclerosus means scarred. What is lichen sclerosus? This is a common disease of the genital skin in women. The areas involved are the vulva and tyra-anal area. The vulva is the skin located at the entr (more content not included)... Normal [facility] HPV W/GENOTYPE THIN PREPon 0 04-21-2023 HPV 16 Ag Ql (Unsp spec) Negative Normal Negative for HPV DNA high risk type 16 by PCR [facility] Comment on above: Order Comment: Speci men Type: FLUID SPECIMEN Ordering Facility: [facility] Address: [address] [place] [address] Performed By: #### L [id number], HPVHRT #### [facility] [place] [id number] [address] [place] [address] [place] HPV 18 Ag Ql (Unsp spec) Negative Normal Negative for HPV DNA high risk type 18 by PCR [facility] Comment on above: Order Comment: Speci men Type: FLUID SPECIMEN Ordering Facility: [facility] Address: [address] [place] [address] Performed By: #### L [id number], HPVHRT #### [facility] CLIA [id number] [address] [place] [address] [place] HPV 31+33+35+39+45+51+52+5 6+58+59+66+68 DNA FLORINDA+probe Ql (Cvx) Negative for HPV DNA high risk types: 31,33,35,39,45,51,52,56,5 8,59,66,68 by PCR. Normal Negative for HPV DNA high risk types: 31,33,35,39, 45,51,52,56, 58,59,66,68 by PCR. [facility] Comment on above: Order Comment: Speci men Type: FLUID SPECIMEN Ordering Facility: [facility] Address: [address] [place] [address] Performed By: #### L [id number], HPVHRT #### [facility] CLIA [id number] [address] [place] [address] [place] PAP TESTon 04-21-2023 ADEQUACY Satisfactory for interpretation Normal [facility] Comment on above: Order Comment: Speci men Type: FLUID SPECIMEN Ordering Facility: [facility] Address: [address] [place] [address] Performed By: #### L [id number], HPVHRT #### [facility] CLIA [id number] [address] [place] [address] [place] CASE REPORT Normal [facility] Comment on above: Order Comment: Speci men Type: FLUID SPECIMEN Ordering Facility: [facility] Address: [address] [place] [address] Result Comment: Gyne cologic Cytology Report Case: [id number] Authorizing Provider: Anil Ortez APRN.ELECTRIC INSTALLER Collected: 04/21/2023 04:57 PM Ordering Location: OB/Gynecology Received: 04/22/2023 11:57 AM First Screen: Sravanthi, Leah, CT, ASCP Rescreen: Zhorova, Katelynn, CT, ASCP Specimen: Pap Test, ThinPrep, Vaginal Performed By: #### L [id number], HPVHRT #### [facility] CLIA [id number] [address] [place] [address] [place] CLINICAL HISTORY, CYTOLOGY, BOX STRAPPER Hysterectomy, Total Normal [facility] Comment on above: Order Comment: Speci men Type: FLUID SPECIMEN Ordering Facility: [facility] Address: [address] [place] [address] Performed By: #### L [id number], HPVHRT #### [facility] CLIA [id number] [address] [place] [address] [place] CYTOLOGY PAP OTHER INT Atrophic specimen Normal [facility] Comment on above: Order Comment: Speci men Type: FLUID SPECIMEN Ordering Facility: [facility] Address: [address] [place] [address] Performed By: #### L [id number], HPVHRT #### [facility] CLIA [id number] [address] [place] [address] [place] FINAL PERFORMING LAB [facility] Comment on above: Order Comment: Speci men Type: FLUID SPECIMEN Ordering Facility: [facility] Address: [address] [place] [address] Result Comment: Tech nical component, scutcher tender screening performed at [facility], [facility] [place] [id number] CLIA# [id number] Diagnostic interpretation performed at [facility], [address] [place], [place] [id number] CLIA# [id number] Student Officer: Edward Belle M.D. Performed By: #### L [id number], HPVHRT #### [facility] CLIA [id number] [address] [place] [address] [place] HPV REFLEX Yes HPV Normal [facility] Comment on above: Order Comment: Speci men Type: FLUID SPECIMEN Ordering Facility: [facility] Address: [address] [place] [address] Performed By: #### L [id number], HPVHRT #### [facility] CLIA [id number] [address] [place] [id number] [place] INTERPRETATION, CYTOLOGY, BOX STRAPPER Normal [facility] Comment on above: Order Comment: Speci men Type: FLUID SPECIMEN Ordering Facility: [facility] Address: [address] [place] [address] Result Comment: Nega tive for intraepithelial lesion or malignancy. Performed By: #### L [id number], HPVHRT #### [facility] CLIA [id number] [address] [place] [address] [place] PAP DISCLAIMER COMMENT The Pap Smear is a screening test for cervical cancer. False negative results occur with all screening tests, emphasizing the need for rescreening at recommended intervals, and clinical correlation. Normal [facility] Comment on above: Order Comment: Speci men Type: FLUID SPECIMEN Ordering Facility: [facility] Address: [address] [place] [address] Performed By: #### L [id number], HPVHRT #### [facility] CLIA [id number] [address] [place] [address] [place] PAP TRAIN ATTENDANT COMMENT This specimen has be en analyzed by the ThinPrep Imaging System, an automated imaging and review system, which assists the laboratory in evaluating cells on ThinPrep Pap tests. Following automated imaging, selected weston from every slide are reviewed by a scutcher tender. Normal [facility] Comment on above: Order Comment: Speci men Type: FLUID SPECIMEN Ordering Facility: [facility] Address: [address] [place] [address] Performed By: #### L [id number], HPVHRT #### [facility] CLIA [id number] [address] [place] [address] [place] Laboratory - Microbiology an d Antimicrobial susceptibilityOrdered By: Win Matos on 03-17-2023 SARS-CoV-2 (COVID-19) RNA FLORINDA+probe Ql (Unsp spec) [facility] SARS-CoV-2 (COVID-19) RNA FLORINDA+probe Ql (Unsp spec) [facility] No Panel InformationOrdered By: Win Matos on 03-17-2023 Influenza Types A,B Direct FA (ROBERT) [facility] Influenza Types A,B Direct FA (ROBERT) [facility] RSV Ag EIAOrdered By: Win tvoar on 03-17-2023 RSV Ag Immune stain Ql (Tiss) [facility] RSV Ag Immune stain Ql (Tiss) [facility] Absolute lymphocyte countOrd ered By: Win Matos on 12-30-2022 Lymphocytes Auto (Unsp spec) [#/Vol] 2.15 10*3/uL 0.83-4.51 [facility] Basophil percentageOrdered B y: Win Matos on 12-30-2022 Basophils/100 WBC (Bld) 0.8 % 0-1 [facility] Bilirubin [Mass/Vol] 0.40 mg/dL 0.20-1.00 [facility] Comment on above: For patients on eltr ombopag therapy, use of Dimension [place] TBIL is not recommended. Chloride [Moles/Vol] 103 mmol/L 98-107 [facility] Eosinophils/100 WBC (Bld) 1.8 % 0-5 [facility] Glucose [Mass/Vol] 86 mg/dL 74-106 [facility] Neutrophils (Bld) [#/Vol] 4.2 10*3/uL 2.0-7.7 [facility] Neutrophils/100 WBC (Bld) 57.9 % 47-70 [facility] Potassium [Moles/Vol] 3.6 mmol/L 3.5-5.1 [facility] Protein [Mass/Vol] 7.4 g/dL 6.4-8.2 [facility] Sodium [Moles/Vol] 138 mmol/L 136-145 [facility] WBC (Bld) [#/Vol] 7.3 10*3/uL 4.4-11.0 [facility] Blood erythrocytes count (nu mber/volume)Ordered By: Win Matos on 12-30-2022 RBC (Bld) [#/Vol] 4.74 10*6/uL 4.2-5.4 [facility] Blood hemoglobin measurement (mass/volume)Ordered By: Win Matos on 12-30-2022 Hemoglobin (Bld) [Mass/Vol] 13.4 g/dL 12.0-15.0 [facility] Blood lymphocytes/100 leukoc ytesOrdered By: Win Matos on 12-30-2022 Lymphocytes/100 WBC (Bld) 29.6 % 19-41 [facility] Blood monocytes/100 leukocyt esOrdered By: Win Matos on 12-30-2022 Monocytes/100 WBC (Bld) 9.6 % 0-10 [facility] Blood platelet mean volumeOr dered By: Win Matos on 12-30-2022 Platelet mean volume (Bld) [Entitic vol] 10.7 fL 6.2-12.0 [facility] Determination of erythrocyte mean corpuscular volume (MCV)Ordered By: Win Matos on 12-30-2022 MCV (RBC) [Entitic vol] 87.3 fL 81-99 [facility] Hematocrit Auto (Bld) [Volum e fraction]Ordered By: Win Matos on 12-30-2022 Hematocrit (Bld) [Volume fraction] 41.4 % 37-47 [facility] Laboratory - Chemistry and C hemistry - challengeOrdered By: [facility] ALP [Catalytic activity/Vol] 70 U/L 45-117 [facility] ALT [Catalytic activity/Vol] 27 U/L 13-56 [facility] CO2 [Moles/Vol] 31.0 mmol/L 21.0-32.0 [facility] Globulin (S) [Mass/Vol] 3.7 g/dL 2.2-4.2 [facility] Urea nitrogen/Creatinine [Mass ratio] 25.9 mg/mg 10-20 [facility] - Hematology and Cell countsOrdered By: [facility] 12-30-2022 Erythrocyte distribution width (RBC) [Entitic vol] 39.9 fL 35.1-43.9 [facility] Erythrocyte distribution width (RBC) [Ratio] 12.5 % 11.6-14.6 [facility] Immature granulocytes/100 WBC (Bld) 0.300 % 0.0-0.9 [facility] Comment on above: IG% - Immature Granu locytes (promyelocytes, myelocytes and metamyelocytes) > 1% indicates that a LEFT SHIFT is Present. MCH (RBC) [Entitic mass] 28.3 pg 27.0-32.0 [facility] Nucleated RBC/100 WBC (Bld) [Ratio] 0 % 0-5 [facility] MCHC Auto (RBC) [Mass/Vol]Or dered By: Win Matos on 12-30-2022 MCHC (RBC) [Mass/Vol] 32.4 g/dL 32-36 [facility] No Panel InformationOrdered By: Win Matos on 12-30-2022 Estimated GFR (MDRD) Amer 87 mL/min >60 [facility] Comment on above: GFR Calc Estimated GFR (MDRD) Non-Af Amer 72 mL/min >60 [facility] Comment on above: Non- GFR Calc Thyroid Stimulating Hormone (TSH) 0.64 uIU/mL 0.358-3.74 [facility] Platelets bldOrdered By: Win Matos on 12-30-2022 Platelets (Bld) [#/Vol] 237 10*3/uL 150-450 [facility] Serum or plasma albumin vazquez urement (mass/volume)Ordered By: Win Matos on 12-30-2022 Albumin [Mass/Vol] 3.7 g/dL 3.2-5.0 [facility] Serum or plasma albumin/glob ulin mass ratioOrdered By: Win Matos on 12-30-2022 Albumin/Globulin [Mass ratio] 1.0 {ratio} 0.9-2.4 [facility] Serum or plasma calcium vazquez urement (mass/volume)Ordered By: Win Matos on 12-30-2022 Calcium [Mass/Vol] 9.0 mg/dL 8.5-10.1 [facility] Serum or plasma creatinine m easurement (mass/volume)Ordered By: Win Matos on 12-30-2022 Creatinine [Mass/Vol] 0.85 mg/dL 0.55-1.02 [facility] Comment on above: The validity of the calculated GFR & GFRAA in patients over 70 years has not been determined. Clinical correlation is essential. Serum or plasma urea nitroge n measurement (mass/volume)Ordered By: Win Matos on 12-30-2022 Urea nitrogen [Mass/Vol] 22 mg/dL 7-18 [facility] Thin prep Papanicolaou smear with manual screeningOrdered By: Win Matos on 12-30-2022 Thin prep Papanicolaou smear with manual screening 15 U/L 15-37 [facility] Thin prep Papanicolaou smear with manual screening 4 5-15 [facility] Cervical or vagninal specime n microscopic examination by cytology stain (reported asOrdered By: Dr. Puente on 09-25-2022 Cytology report Cyto stain Doc (Cvx/Vag) Comment . [facility] Comment on above: The Pap smear is a s creening test designed to aid in thedetection of premalignant and malignant conditions of theuterine cervix. It is not a diagnostic procedure andshould not be used as the sole means of detecting cervicalcancer. Both false-positive and false-negative reports dooccur. Detection in cervical specim en of any of human papilloma virus (HPV) 16, 18, 31, 33,Ordered By: Dr. Puente on 09-25-2022 HPV 16+18+31+33+35+39+45+5 1+52+56+58+59+66+68 DNA Probe+sig amp Ql (Cvx) Negative Negative [facility] Comment on above: This nucleic acid am plification test detects fourteen high- risk HPV types (16,18,31,33,35,39,45,51,52,56,58,59,66,68)without differentiation. Laboratory - CytologyOrdered By: Dr. Puente on 09-25-2022 [employer]yster [employer]er Cyto stain Nom (Cvx/Vag) [ID] Comment . [facility] Comment on above: William Gusman totjhologist (ASCP) Laboratory - Miscellaneous t estsOrdered By: Dr. Puente on 09-25-2022 Service comment (Unsp spec) [Interp] Comment . [facility] Comment on above: This liquid based Th inPrep(R) pap test was screened withthe use of an image guided system. Service comment (Unsp spec) [Interp] . . [facility] Liquid-based cerv Pap + CT/G C by FLORINDA w reflex to high-risk HPV for ASCUSOrdered By: Dr. Puente on 09-25-2022 Cytology report Cyto stain.thin prep Doc (Cvx/Vag) Comment . [facility] Comment on above: Criteria not met, HP V Genotype not performed.Performed at: - [address] [id number] Director: Graciela Knight MD, Phone: [phone] at: =[address] [id number] Director: Graciela Knight MD, Phone: [phone] No Panel InformationOrdered By: Dr. Puente on 09-25-2022 Pathology report final diagnosis Narrative Comment . [facility] Comment on above: NEGATIVE FOR INTRAEP ITHELIAL LESION OR MALIGNANCY.CELLULAR CHANGES ASSOCIATED WITH ATROPHY AND INFLAMMATION ARE PRESENT. Absolute lymphocyte countOrd ered By: Dr. Leblanc on 07-10-2022 Lymphocytes Auto (Unsp spec) [#/Vol] 2.28 10*3/uL 0.83-4.51 [facility] Basophil percentageOrdered B y: Dr. Leblanc on 07-10-2022 Basophils/100 WBC (Bld) 0.6 % 0-1 [facility] Bilirubin [Mass/Vol] 0.20 mg/dL 0.20-1.00 [facility] Comment on above: For patients on eltr ombopag therapy, use of Dimension [place] TBIL is not recommended. Chloride [Moles/Vol] 105 mmol/L 98-107 [facility] Eosinophils/100 WBC (Bld) 2.1 % 0-5 [facility] Glucose [Mass/Vol] 101 mg/dL 74-106 [facility] Comment on above: Fasting Glucose resu lt from 100 to 125 mg/dL suggests IMPAIRED HOMEOSTASIS per A.D.A. criteria. Neutrophils (Bld) [#/Vol] 4.0 10*3/uL 2.0-7.7 [facility] Neutrophils/100 WBC (Bld) 56.4 % 47-70 [facility] Potassium [Moles/Vol] 3.7 mmol/L 3.5-5.1 [facility] Protein [Mass/Vol] 6.8 g/dL 6.4-8.2 [facility] Sodium [Moles/Vol] 138 mmol/L 136-145 [facility] WBC (Bld) [#/Vol] 7.1 10*3/uL 4.4-11.0 [facility] Blood erythrocytes count (nu mber/volume)Ordered By: Dr. Leblanc on 07-10-2022 RBC (Bld) [#/Vol] 4.79 10*6/uL 4.2-5.4 [facility] Blood hemoglobin measurement (mass/volume)Ordered By: Dr. Leblanc on 07-10-2022 Hemoglobin (Bld) [Mass/Vol] 13.2 g/dL 12.0-15.0 [facility] Blood lymphocytes/100 leukoc ytesOrdered By: Dr. Leblanc on 07-10-2022 Lymphocytes/100 WBC (Bld) 32.2 % 19-41 [facility] Blood monocytes/100 leukocyt esOrdered By: Dr. Leblanc on 07-10-2022 Monocytes/100 WBC (Bld) 8.6 % 0-10 [facility] Blood platelet mean volumeOr dered By: Dr. Leblanc on 07-10-2022 Platelet mean volume (Bld) [Entitic vol] 10.6 fL 6.2-12.0 [facility] Determination of erythrocyte mean corpuscular volume (MCV)Ordered By: Dr. Leblanc on 07-10-2022 MCV (RBC) [Entitic vol] 85.6 fL 81-99 [facility] Hematocrit Auto (Bld) [Volum e fraction]Ordered By: Dr. Leblanc on 07-10-2022 Hematocrit (Bld) [Volume fraction] 41.0 % 37-47 [facility] Laboratory - Chemistry and C hemistry - challengeOrdered By: Dr. Leblanc on 07-10-2022 ALP [Catalytic activity/Vol] 63 U/L 45-117 [facility] ALT [Catalytic activity/Vol] 24 U/L 13-56 [facility] CO2 [Moles/Vol] 27.0 mmol/L 21.0-32.0 [facility] Free T4 [Mass/Vol] 1.11 ng/dL 0.76-1.46 [facility] Globulin (S) [Mass/Vol] 3.1 g/dL 2.2-4.2 [facility] Urea nitrogen/Creatinine [Mass ratio] 29.9 mg/mg 10-20 [facility] Laboratory - Hematology and Cell countsOrdered By: Dr. Leblanc on 07-10-2022 Erythrocyte distribution width (RBC) [Entitic vol] 39.8 fL 35.1-43.9 [facility] Erythrocyte distribution width (RBC) [Ratio] 12.9 % 11.6-14.6 [facility] Immature granulocytes/100 WBC (Bld) 0.100 % 0.0-0.9 [facility] Comment on above: IG% - Immature Granu locytes (promyelocytes, myelocytes and metamyelocytes) > 1% indicates that a LEFT SHIFT is Present. MCH (RBC) [Entitic mass] 27.6 pg 27.0-32.0 [facility] Nucleated RBC/100 WBC (Bld) [Ratio] 0 % 0-5 [facility] MCHC Auto (RBC) [Mass/Vol]Or dered By: Dr. Leblanc on 07-10-2022 MCHC (RBC) [Mass/Vol] 32.2 g/dL 32-36 [facility] No Panel InformationOrdered By: Dr. Leblanc on 07-10-2022 Estimated GFR (MDRD) Amer 85 mL/min >60 [facility] Comment on above: GFR Calc Estimated GFR (MDRD) Non-Af Amer 70 mL/min >60 [facility] Comment on above: Non- GFR Calc Thyroglobulin Antibody < 1.0 IU/mL 0.0-0.9 [facility] [place] [facility] Comment on above: Thyroglobulin Antibo dy measured by Eileen CoulterMethodology Thyroglobulin Level 0.1 ng/mL 1.5-38.5 [facility] Comment on above: According to the [facility] [employer],the reference interval for Thyroglobulin (TG) should berelated to euthyroid patients and not for patients whounderwent thyroidectomy. TG reference intervals for thesepatients depend on the residual mass of the thyroid tissueleft after surgery. Establishing a post-operative baselineis recommended. The assay limit of quantitation is 0.1ng/mLThyroglobulin measured by Eileen Sut[employer] [place] ImmunometricAssayPerformed at: [facility] Lab[address] [id number] Director: Louis Mariee PhD, Phone: [phone] Thyroid Stimulating Hormone (TSH) 1.38 uIU/mL 0.358-3.74 [facility] Platelets bldOrdered By: Dr. Leblanc on 07-10-2022 Platelets (Bld) [#/Vol] 224 10*3/uL 150-450 [facility] Serum or plasma albumin vazquez urement (mass/volume)Ordered By: Dr. Leblanc on 07-10-2022 Albumin [Mass/Vol] 3.7 g/dL 3.2-5.0 [facility] Serum or plasma albumin/glob ulin mass ratioOrdered By: Dr. Leblanc on 07-10-2022 Albumin/Globulin [Mass ratio] 1.2 {ratio} 0.9-2.4 [facility] Serum or plasma calcium vazquez urement (mass/volume)Ordered By: Dr. Leblanc on 07-10-2022 Calcium [Mass/Vol] 8.9 mg/dL 8.5-10.1 [facility] Serum or plasma creatinine m easurement (mass/volume)Ordered By: Dr. Leblanc on 07-10-2022 Creatinine [Mass/Vol] 0.87 mg/dL 0.55-1.02 [facility] Comment on above: The validity of the calculated GFR & GFRAA in patients over 70 years has not been determined. Clinical correlation is essential. Serum or plasma urea nitroge n measurement (mass/volume)Ordered By: Dr. Leblanc on 07-10-2022 Urea nitrogen [Mass/Vol] 26 mg/dL 7-18 [facility] Thin prep Papanicolaou smear with manual screeningOrdered By: Dr. Leblanc on 07-10-2022 Thin prep Papanicolaou smear with manual screening 14 U/L 15-37 [facility] Thin prep Papanicolaou smear with manual screening 6 5-15 [facility] Absolute lymphocyte counton 11-21-2021 Lymphocytes Auto (Unsp spec) [#/Vol] 2.44 10*3/uL 0.83-4.51 [facility] Work Phone: Basophil percentageon 2021 Basophils/100 WBC (Bld) 0.8 % 0-1 [facility] Work Phone: [phone] Bilirubin [Mass/Vol] 0.40 mg/dL 0.20-1.00 [facility] Work Phone: Comment on above: For patients on eltr ombopag therapy, use of Dimension [place] TBIL is not recommended. Chloride [Moles/Vol] 105 mmol/L 98-107 [facility] Work Phone: Eosinophils/100 WBC (Bld) 2.7 % 0-5 [facility] Work Phone: Glucose [Mass/Vol] 87 mg/dL 74-106 [facility] Work Phone: [phone] Neutrophils (Bld) [#/Vol] 3.3 10*3/uL 2.0-7.7 [facility] Work Phone: Neutrophils/100 WBC (Bld) 50.0 % 47-70 [facility] Work Phone: Potassium [Moles/Vol] 4.0 mmol/L 3.5-5.1 [facility]: Protein [Mass/Vol] 7.2 g/dL 6.4-8.2 [facility] Work Phone: Sodium [Moles/Vol] 139 mmol/L 136-145 [facility] Work Phone: WBC (Bld) [#/Vol] 6.6 10*3/uL 4.4-11.0 [facility] Work Phone: Blood erythrocytes count (nu mber/volume)on 11-21-2021 RBC (Bld) [#/Vol] 4.70 10*6/uL 4.2-5.4 [facility]: Blood hemoglobin measurement (mass/volume)on 11-21-2021 Hemoglobin (Bld) [Mass/Vol] 12.8 g/dL 12.0-15.0 [facility] Work Phone: Blood lymphocytes/100 leukoc yteson 11-21-2021 Lymphocytes/100 WBC (Bld) 37.1 % 19-41 [facility] Work Phone: [phone] Blood monocytes/100 leukocyt eson 11-21-2021 Monocytes/100 WBC (Bld) 9.1 % 0-10 [facility] Work Phone: Blood platelet mean volumeon 11-21-2021 Platelet mean volume (Bld) [Entitic vol] 11.2 fL 6.2-12.0 [facility] Work Phone: Determination of erythrocyte mean corpuscular volume (MCV)on 11-21-2021 MCV (RBC) [Entitic vol] 85.1 fL 81-99 [facility] Work Phone: Hematocrit Auto (Bld) [Volum e fraction]on 11-21-2021 Hematocrit (Bld) [Volume fraction] 40.0 % 37-47 [facility] Work Phone: Laboratory - Chemistry and C hemistry - challengeon 11-21-2021 ALP [Catalytic activity/Vol] 59 U/L 45-117 [facility] Work Phone: ALT [Catalytic activity/Vol] 28 U/L 13-56 [facility] Work Phone: CO2 [Moles/Vol] 29.0 mmol/L 21.0-32.0 [facility] Work Phone: Globulin (S) [Mass/Vol] 3.5 g/dL 2.2-4.2 [facility] Work Phone: Urea nitrogen/Creatinine [Mass ratio] 27.1 mg/mg 10-20 [facility] Work Phone: Laboratory - Hematology and Cell countson 11-21-2021 Erythrocyte distribution width (RBC) [Entitic vol] 38.8 fL 35.1-43.9 [facility] Work Phone: Erythrocyte distribution width (RBC) [Ratio] 12.6 % 11.6-14.6 [facility] Work Phone: Immature granulocytes/100 WBC (Bld) 0.300 % 0.0-0.9 [facility] Work Phone: Comment on above: IG% - Immature Granu locytes (promyelocytes, myelocytes and metamyelocytes) > 1% indicates that a LEFT SHIFT is Present. MCH (RBC) [Entitic mass] 27.2 pg 27.0-32.0 [facility] Work Phone: Nucleated RBC/100 WBC (Bld) [Ratio] 0 % 0-5 [facility] Work Phone: MCHC Auto (RBC) [Mass/Vol]on 11-21-2021 MCHC (RBC) [Mass/Vol] 32.0 g/dL 32-36 [facility] Work Phone: No Panel Informationon 11-21 Estimated GFR (MDRD) Amer 76 mL/min >60 [facility] Work Phone: Comment on above: GFR Calc Estimated GFR (MDRD) Non-Af Amer 63 mL/min >60 [facility] Work Phone: Comment on above: Non- GFR Calc Thyroid Stimulating Hormone (TSH) 0.74 uIU/mL 0.358-3.74 [facility] Work Phone: Platelets bldon 11-21-2021 Platelets (Bld) [#/Vol] 242 10*3/uL 150-450 [facility] Work Phone: Serum or plasma albumin vazquez urement (mass/volume)on 11-21-2021 Albumin [Mass/Vol] 3.7 g/dL 3.2-5.0 [facility] Work Phone: Serum or plasma albumin/glob ulin mass ratioon 11-21-2021 Albumin/Globulin [Mass ratio] 1.1 {ratio} 0.9-2.4 [facility] Work Phone: Serum or plasma calcium vazquez urement (mass/volume)on 11-21-2021 Calcium [Mass/Vol] 8.8 mg/dL 8.5-10.1 [facility] Work Phone: Serum or plasma creatinine m easurement (mass/volume)on 11-21-2021 Creatinine [Mass/Vol] 0.96 mg/dL 0.55-1.02 [facility] Work Phone: Comment on above: The validity of the calculated GFR & GFRAA in patients over 70 years has not been determined. Clinical correlation is essential. Serum or plasma urea nitroge n measurement (mass/volume)on 11-21-2021 Urea nitrogen [Mass/Vol] 26 mg/dL 7-18 [facility] Work Phone: Thin prep Papanicolaou smear with manual screeningon 11-21-2021 Thin prep Papanicolaou smear with manual screening 13 U/L 15-37 [facility] Work Phone: Thin prep Papanicolaou smear with manual screening 5 5-15 [facility] Work Phone: No Panel Informationon 08-04 Thyroid Stimulating Hormone (TSH) 0.73 uIU/mL 0.358-3.74 [facility] Work Phone: TCCP - GOLDon 12-21-2020 CANCER CARE PROTOCOL Done Normal [facility] Comment on above: Performed By: #### L ABTCCPGOLD #### U [facility] (DEFAULT) [address] [place] [id number] TCCP - Viktor 12-21-2020 CANCER CARE PROTOCOL Done [facility] Comment on above: Performed By: #### L ABTCCPLAV #### [facility] (DEFAULT) [address] [place] [id number] THYROGLOBULIN&THYROGLOBULIN ABon 12-21-2020 THYROGLOBULIN ANTIBODY <1.8 Normal <1.8 [facility] Comment on above: Performed By: #### T HYBAT #### U [facility] (DEFAULT) [address] [place] [id number] Thyroglobulin Interpretation SEE COMMENTS [facility] Comment on above: Result Comment: Thyr oglobulin (Tg) levels must be interpreted in the context of TSH levels, serial Tg measurements and radioiodine ablation status. Tg levels <0.1 ng/mL in athyrotic individuals on suppressive therapy indicate a minimal risk (<1-2%) of clinically detectable recurrent papillary/follicular thyroid cancer. ADDITIONAL INFORMATION PLEASE NOTE: A thyroglobulin antibody (TgAb) reference cutoff of <4.0 IU/mL may be more suitable for the evaluation of autoimmune thyroiditis. Thyroglobulin flagging is based on athyrotic reference values. The thyroglobulin and thyroglobulin antibody testing methods are immunoenzymatic assays manufactured by [employer] and performed on the [employer] DXI 800. Values obtained from different assay methods or kits may be different and cannot be used interchangeably. The results cannot be interpreted as absolute evidence for the presence or absence of malignant disease. Test Performed by: [facility] [place] [address] [place] [address] Fish Conservationist: Justin Sampson M.D. Ph.D.; CLIA# [id number] Performed By: #### T HYBAT #### U [facility] (DEFAULT) [address] [id number] Thyroglobulin, Tumor Marker <0.1 Normal [facility] Comment on above: Result Comment: REFERENCE VALUE Athyrotic <0.1 Intact Thyroid <=33 Performed By: #### T HYBAT #### U [facility] (DEFAULT) [address] [address] TSHon 12-21-2020 TSH 0.618 uIU/mL Normal 0.550-4.780 [facility] Comment on above: Performed By: #### T SH #### [facility] (DEFAULT) [address] [place] [address] Vital Signs Date Time Vital Sign Value Performing Clinician Delgado pedraza 10-06-2024 10:30-0400 Body height 162.[address] Win Matos MD Work Phone: [facility] 10-06-2024 10:30-0400 Body mass index (BMI) [Ratio] 41.8 kg/m2 Dr. Win Matos MD Work Phone: [facility] 10-06-2024 10:30-0400 Body temperature 98.4 [degF] Dr. Win Matos MD Work Phone: [facility] 10-06-2024 10:30-0400 Body weight 110.[address] Win Matos MD Work Phone: [facility] 10-06-2024 10:30-0400 Diastolic blood pressure 86 mm[Hg] Dr. Win Matos MD Work Phone: [facility] 10-06-2024 10:30-0400 Heart rate 65 /min Dr. Win Matos MD Work Phone: 9(978)403-715933 [place] [address] 10-06-2024 10:30-0400 Respiratory rate 16 /min Dr. Win Matos MD Work Phone: 7(354)377-357633 [place] [address] 10-06-2024 10:30-0400 SaO2% (BldA) [Mass fraction] 96 % Dr. Win Matos MD Work Phone: 2(367)771-465233 [place] [address] 10-06-2024 10:30-0400 Systolic blood pressure 133 mm[Hg] Dr. Win Matos MD Work Phone: 1(599)562-105886 [place] [address] 10-04-2024 08:05-0400 Body height 162.[address] Win Matos MD Work Phone: 5(921)914-155486 [place] [address] 10-04-2024 08:05-0400 Body mass index (BMI) [Ratio] 41.1 kg/m2 Dr. Win Matos MD Work Phone: 3(661)797-142433 [place] [address] 10-04-2024 08:05-0400 Body weight 108.[address] Win Matos MD Work Phone: 2(214)751-582286 [place] [address] 09-30-2024 09:06-0400 Body height 162.[address] Win Matos MD Work Phone: 1(073)016-089833 [place] [address] 09-30-2024 09:04-0400 Body mass index (BMI) [Ratio] 41.2 kg/m2 Dr. Win Matos MD Work Phone: 8(859)023-142433 [place] [address] 09-30-2024 09:04-0400 Body temperature 98.1 [degF] Dr. Win Matos MD Work Phone: 3(793)864-049833 [place] [address] 09-30-2024 09:04-0400 Body weight 108.[address] Win Matos MD Work Phone: [facility] 09-30-2024 09:04-0400 Diastolic blood pressure 72 mm[Hg] Dr. Win Matos MD Work Phone: [facility] 09-30-2024 09:04-0400 Heart rate 87 /min Dr. Win Matos MD Work Phone: 0(471)354-548133 [place] [address] 09-30-2024 09:04-0400 Respiratory rate 18 /min Dr. Win Matos MD Work Phone: 7(283)397-249833 [place] [address] 09-30-2024 09:04-0400 SaO2% (BldA) [Mass fraction] 94 % Dr. Win Matos MD Work Phone: 1(318)207-497433 [place] [address] 09-30-2024 09:04-0400 Systolic blood pressure 106 mm[Hg] Dr. Win Matos MD Work Phone: 4(398)297-912186 [place] [address] 03-19-2024 10:15-0500 Body height 162.[address] Win Matos MD Work Phone: 2(912)778-751933 [place] [address] 03-19-2024 10:15-0500 Body mass index (BMI) [Ratio] 41.8 kg/m2 Dr. Win Matos MD Work Phone: 6(105)336-977186 [place] [address] 03-19-2024 10:15-0500 Body weight 110.[address] Win Matos MD Work Phone: 9(995)310-836386 [place] [address] 03-19-2024 10:15-0500 Diastolic blood pressure 75 mm[Hg] Dr. Win Matos MD Work Phone: 0(030)021-064133 [place] [address] 03-19-2024 10:15-0500 Heart rate 85 /min Dr. Win Matos MD Work Phone: 8(526)708-900233 [place] [address] 03-19-2024 10:15-0500 SaO2% (BldA) [Mass fraction] 95 % Dr. Win Matos MD Work Phone: [facility] 03-19-2024 10:15-0500 Systolic blood pressure 108 mm[Hg] Dr. Win Matos MD Work Phone: 8(885)535-944533 [place] [address] 07-19-2023 21:23-0400 Body temperature 97 [degF] Dr. Win Matos Work Phone: [facility] 07-19-2023 21:23-0400 Diastolic blood pressure 91 mm[Hg] Dr. Win Matos Work Phone: 0(964)292-993433 [place] [address] 07-19-2023 21:23-0400 Heart rate 88 /min Dr. Win Matos Work Phone: 2(547)178-898233 [place] [address] 07-19-2023 21:23-0400 Respiratory rate 18 /min Dr. Win Matos Work Phone: 1(172)678-158533 [place] [address] 07-19-2023 21:23-0400 SaO2% (BldA) [Mass fraction] 98 % Dr. Win Matos Work Phone: 3(784)614-240333 [place] [address] 07-19-2023 21:23-0400 Systolic blood pressure 130 mm[Hg] Dr. Win Matos Work Phone: 1(497)952-535586 [place] [address] 07-19-2023 20:54-0400 Body mass index (BMI) [Ratio] 30.9 kg/m2 Dr. Win Matos Work Phone: 0(970)910-257633 [place] [address] 07-19-2023 20:54-0400 Body weight 81.[address] Win Matos Work Phone: 8(894)251-648033 [place] [address] 07-19-2023 18:54-0400 Body height 162.[address] Win Matos Work Phone: 8(022)927-870833 [place] [address] 07-15-2023 08:00-0400 Body temperature 98 [degF] Dr. Win Matos Work Phone: 7(566)068-440033 [place] [address] 07-15-2023 08:00-0400 Diastolic blood pressure 76 mm[Hg] Dr. Win Matos Work Phone: 8(372)081-124833 [place] [address] 07-15-2023 08:00-0400 Heart rate 78 /min Dr. Win Matos Work Phone: 0(493)061-711133 [place] [address] 07-15-2023 08:00-0400 Respiratory rate 15 /min Dr. Win Matos Work Phone: [facility] 07-15-2023 08:00-0400 SaO2% (BldA) [Mass fraction] 94 % Dr. Win Matos Work Phone: 6(586)582-683633 [place] [address] 07-15-2023 08:00-0400 Systolic blood pressure 127 mm[Hg] Dr. Win Matos Work Phone: 7(327)900-750433 [place] [address] 07-14-2023 16:05-0400 Inhaled oxygen flow rate 4 L/min Dr. Win Matos Work Phone: 7(494)197-453133 [place] [address] 07-14-2023 15:51-0400 Body height 162.[address] Win Matos Work Phone: 2(370)967-604786 [place] [address] 07-14-2023 15:51-0400 Body mass index (BMI) [Ratio] 40.8 kg/m2 Dr. Win Matos Work Phone: 8(845)590-613386 [place] [address] 07-14-2023 15:51-0400 Body weight [address] Win Matos Work Phone: 6(002)219-941986 [place] [address] 06-13-2023 09:42-0500 Body mass index (BMI) [Ratio] 41.1 kg/m2 Dr. Win Matos Work Phone: 1(754)669-892386 [place] [address] 06-13-2023 09:42-0500 Body weight 108.[address] Win Matos Work Phone: 1(887)935-427586 [place] [address] 06-13-2023 09:42-0500 Diastolic blood pressure 80 mm[Hg] Dr. Win Matos Work Phone: 9(503)138-623286 [place] [address] 06-13-2023 09:42-0500 Heart rate 90 /min Dr. Win Matos Work Phone: 7(047)176-153886 [place] [address] 06-13-2023 09:42-0500 Respiratory rate 18 /min Dr. Win Matos Work Phone: 5(210)540-839886 [place] [address] 06-13-2023 09:42-0500 Systolic blood pressure 120 mm[Hg] Dr. Win Matos Work Phone: 1(994)950-821286 [place] [address] 06-05-2023 15:12-0500 Body mass index (BMI) [Ratio] 41.5 kg/m2 Dr. Win Matos Work Phone: 4(449)490-446086 [place] [address] 06-05-2023 15:12-0500 Body weight 109.[address] Win Matos Work Phone: 6(440)897-111586 [place] [address] 04-17-2023 08:01-0500 Body height 162.[address] Win Matos Work Phone: 7(646)441-922486 [place] [address] 04-17-2023 08:01-0500 Body mass index (BMI) [Ratio] 42 kg/m2 Dr. Win Matos Work Phone: 4(529)517-428886 [place] [address] 04-17-2023 08:01-0500 Body weight 111.[address] Win Matos Work Phone: 5(851)533-687586 [place] [address] 04-10-2023 11:33-0500 Body height 162.[address] Win Matos Work Phone: [phone] [place] [address] 04-10-2023 11:33-0500 Body mass index (BMI) [Ratio] 41.3 kg/m2 Dr. Win Matos Work Phone: [phone] [place] [address] 04-10-2023 11:33-0500 Body temperature 97.2 [degF] Dr. Win Matos Work Phone: 2(272)[phone] [place] [address] 04-10-2023 11:33-0500 Body weight 109.[address] Win Matos Work Phone: 3([phone])275-963086 [place] [address] 04-10-2023 11:33-0500 Diastolic blood pressure 85 mm[Hg] Dr. Win Matos Work Phone: 2(457)551-612986 [place] [address] 04-10-2023 11:33-0500 Heart rate 83 /min Dr. Win Matos Work Phone: 2(027)978-488186 [place] [address] 04-10-2023 11:33-0500 Respiratory rate 16 /min Dr. Win Matos Work Phone: 9(043)612-883086 [place] [address] 04-10-2023 11:33-0500 SaO2% (BldA) [Mass fraction] 97 % Dr. Win Matos Work Phone: [facility] 04-10-2023 11:33-0500 Systolic blood pressure 125 mm[Hg] Dr. Win Matos Work Phone: [facility] 03-21-2023 16:05-0500 Body mass index (BMI) [Ratio] 42.1 kg/m2 Dr. Win Matos Work Phone: [facility] 03-21-2023 16:05-0500 Body temperature 98.9 [degF] Dr. Win Matos Work Phone: [facility] 03-21-2023 16:05-0500 Body weight 111.[address] Win Matos Work Phone: [facility] 03-21-2023 16:05-0500 Diastolic blood pressure 88 mm[Hg] Dr. Win Matos Work Phone: [facility] 03-21-2023 16:05-0500 Heart rate 70 /min Dr. Win Matos Work Phone: [facility] 03-21-2023 16:05-0500 Respiratory rate 16 /min Dr. Win Matos Work Phone: [facility] 03-21-2023 16:05-0500 SaO2% (BldA) [Mass fraction] 97 % Dr. Win Matos Work Phone: [facility] 03-21-2023 16:05-0500 Systolic blood pressure 128 mm[Hg] Dr. Win Matos Work Phone: [facility] Encounters Encounter Date Encounter Type Care Provider Facility Start: 10-11-2024 ambulatory Win Matos Facility:[facility] Start: 10-06-2024 End: 10-06-[address] Bar Isbell MD -[facility] Work Phone: Start: 10-06-2024 End: 10-06-[address] Win Matos MD Work Phone: -[facility] Start: 10-05-2024 End: 10-05-[address] Win Matos MD Work Phone: -[facility] Start: 10-05-2024 End: 10-05-[address] Javi Lenz MD -[facility] Work Phone: Start: 10-04-2024 End: 10-04-[address] Abisai Roman DO -[facility] Work Phone: Start: 10-04-2024 End: 10-05-[address] Win Matos MD Work Phone: [facility] Start: 09-30-[address] Deny Isbell MD -[facility] Start: 09-30-2024 End: 09-30-[address] Bar Isbell MD [facility] Work Phone: Start: 09-30-2024 End: 09-30-[address] Win Matos MD Work Phone: [facility] Work Phone: Start: 09-02-2024 End: 09-02-[address] Win Matos MD Work Phone: [facility] Work Phone: Start: 09-02-2024 End: 09-02-[address] Kristin Mckay MD -[facility] [place] Work Phone: Start: 09-02-2024 End: 09-02-2024 ambulatory Kristin Mckay Facility:[facility] Start: 07-14-2024 End: 07-14-[address] Win Matos MD Work Phone: [facility] Work Phone: Start: 07-14-2024 End: 07-14-[address] Win Matos MD -[facility] [place] Work Phone: Start: 07-14-2024 End: 07-14-2024 ambulatory Win Chi Carlo Facility:[facility] Start: 07-06-2024 End: 07-06-[address] Win Matos MD Work Phone: [facility] Work Phone: Start: 07-06-2024 End: 07-06-[address] Chaitanya Leblanc MD -[facility] [place] Work Phone: Start: 07-06-2024 End: 07-06-2024 ambulatory Chaitanya Leblanc Facility:[facility] Start: 06-11-2024 End: 06-11-[address] Win Matos MD Work Phone: [facility] Work Phone: Start: 06-11-2024 End: 06-11-[address] Kristin Mckay MD -[facility] [place] Work Phone: Start: 06-11-2024 End: 06-11-2024 ambulatory Kristin Mckay Facility:[facility] Start: 05-28-2024 End: 05-28-[address] Abisai Roman DO -[facility] Work Phone: Start: 05-28-2024 End: 05-28-2024 ambulatory Win Chi Carlo Facility:[facility] Start: 05-17-2024 End: 05-17-[address] Win Matos MD -Outpatient [facility] Work Phone: Start: 05-17-2024 End: 05-17-2024 ambulatory Win Chi Carlo Facility:[facility] Start: 04-29-2024 End: 04-29-[address] Kristin Mckay MD -[facility] [place] Work Phone: Start: 04-29-2024 End: 04-29-2024 ambulatory Win Chi Carlo Facility:[facility] Start: 04-19-2024 ambulatory Win Chi Carlo Facility:[facility] Start: 03-19-2024 End: 03-19-[address] Chaitanya Leblanc MD -[facility] Work Phone: Start: 03-19-2024 End: 03-19-2024 ambulatory Win Ezequiel Kernok Facility:[facility] Start: 02-28-2024 End: 02-28-[address] Kristin Mckay MD -Laboratory Work Phone: Start: 02-28-2024 End: 02-28-2024 ambulatory Kristin Mckay Facility:[facility] Start: 02-12-2024 End: 02-12-2024 ambulatory Win Chi Carlo Facility:[facility] Start: 01-12-2024 End: 01-12-2024 ambulatory [facility] Carlo Facility:[facility] Start: 12-31-2023 End: 12-31-2023 ambulatory Win Chi Carlo Facility:[facility] Start: 08-06-2023 End: 08-06-[address] Win Matos Work Phone: [facility] Work Phone: Start: 08-06-2023 End: 08-06-[address] Win Matos Work Phone: [facility]-Laboratory, Phy Office 3rd Flr Start: 07-30-2023 End: 07-30-[address] Win Matos Work Phone: [facility] Work Phone: Start: 07-29-2023 Refill Anil ORTIZ RN.ELECTRIC INSTALLER Work Phone: OB/Gynecology Comment on above: Refill Request Start: 07-19-2023 End: 07-19-2023 Emergency department patient visit Dr. Win Matos Work Phone: [facility]-Emergency Department Work Phone: Start: 07-19-2023 Non-patient / Non-visit Dr. Maldonado Matos Work Phone: [facility] Work Phone: Start: 07-18-2023 Non-patient / Non-visit Dr. Maldonado Matos Work Phone: [facility] Work Phone: Start: 07-15-2023 Non-patient / Non-visit Dr. Maldonado Matos Work Phone: [facility] Start: 07-14-2023 Non-patient / Non-visit Dr. Maldonado Matos Work Phone: [facility] Work Phone: Start: 07-14-2023 Non-patient / Non-visit Dr. Maldonado Matos Work Phone: [facility] Start: 07-14-2023 End: 07-15-2023 Evaluation and management of inpatient Dr. [facility] Work Phone: Start: 07-14-2023 End: 07-15-[address] Win Matos Work Phone: [facility] Work Phone: Start: 07-10-2023 Non-patient / Non-visit Dr. Maldonado Matos Work Phone: [facility] Start: 07-04-2023 End: 07-04-[address] Win Matos Work Phone: [facility] Work Phone: Start: 06-13-[address] Win farah Work Phone: [facility] Comment on above: From a cardiovascula r standpoint the patient can be cleared to proceed with surgical invention. She has a history of normal LV function with an ejection fraction of 65% and no significant valvular heart disease. She has had PVCs in the past with anesthesia induction these can be managed with additional beta-warren therapy as indicated. She should take her beta-warren the morning of her procedure. Start: 06-13-2023 End: 06-13-2023 Encounter for other preprocedural examination Dr. Win Matos Work Phone: [facility] Start: 06-13-2023 End: 06-13-[address] Win Matos Work Phone: [facility] Work Phone: Start: 06-05-2023 End: 06-05-[address] Win Matos Work Phone: [facility] Work Phone: Start: 06-03-2023 End: 06-03-[address] Win Matos Work Phone: [facility] Work Phone: Start: 05-23-2023 End: 05-23-[address] Win Matos Work Phone: [facility] Work Phone: Start: 05-23-2023 End: 05-23-[address] Win Matos Work Phone: [facility]-Physical Therapy Work Phone: Start: 05-23-[address] Win casarez Work Phone: [facility] Work Phone: Start: 05-15-2023 End: 05-15-[address] Win Matos Work Phone: [facility] Work Phone: Start: 05-15-2023 End: 05-15-[address] Win Matos Work Phone: [facility]-Outpatient Breast Imaging Work Phone: Start: 05-12-[address] Win casarez Work Phone: [facility] Therapy Work Phone: Start: 05-01-2023 End: 05-01-[address] Win Matos Work Phone: [facility] Work Phone: Start: 04-26-2023 End: 04-26-[address] Win Matos Work Phone: [facility] Work Phone: Start: 04-26-2023 End: 04-26-[address] Win Matos Work Phone: [facility] Work Phone: Start: 04-21-2023 End: 04-21-[address] [facility] Start: 04-17-2023 End: 04-17-[address] Win Matos Work Phone: [facility] Work Phone: Start: 04-10-2023 End: 04-10-2023 Emergency department patient visit Dr. Win Matos Work Phone: [facility]-Emergency Department Work Phone: Start: 03-21-2023 End: 03-21-[address] Win Matos Work Phone: [facility] Work Phone: Start: 03-17-2023 End: 03-17-2023 ambulatory [facility] Work Phone: Start: 03-17-2023 End: 03-17-2023 Patient encounter procedure [facility]-Pulmonary Services/Neurology Work Phone: Start: 12-30-2022 End: 12-30-2022 ambulatory [facility] Work Phone: Start: 12-30-2022 End: 12-30-2022 Patient encounter procedure [facility]-Laboratory, Phy Office 3rd Flr Start: 09-25-2022 End: 09-25-2022 ambulatory [facility] Work Phone: Start: 09-25-2022 End: 09-25-2022 Patient encounter procedure [facility]-Laboratory, Specimen Start: 07-10-2022 End: 07-10-2022 ambulatory [facility] Work Phone: Start: 07-10-2022 End: 07-10-2022 Patient encounter procedure [facility]-Laboratory, y Office 3rd Flr Start: 05-14-2022 End: 05-14-2022 Patient encounter procedure [facility]-Outpatient Breast Imaging Start: 11-21-2021 End: 11-21-2021 Patient encounter procedure [facility]-Laboratory, y Office 3rd Flr Start: 08-04-2021 End: 08-04-2021 Patient encounter procedure [facility] Start: 05-30-2021 End: 05-30-2021 Patient encounter procedure [facility]-Outpatient [facility] Imaging Start: 12-21-2020 ambulatory RADHA MATOS Facility:[facility] Procedures Date Procedure Procedure Detail Performing Clinician Start: 10-05-2024 X-ray of lumbosacral spine Dr. Win Matos MD Work Phone: Start: 10-05-[address] Win Matos MD Work Phone: Start: 07-06-[address] Win Rome Work Phone: Comment on above: According to the National Academy of Cli nical Biochemistry,the reference interval for Thyroglobulin (TG) should berelated to euthyroid patients and not for patients whounderwent thyroidectomy. TG reference intervals for thesepatients depend on the residual mass of the thyroid tissueleft after surgery. Establishing a post-operative baselineis recommended. The assay limit of quantitation is 0.1ng/mLThyroglobulin measured by Eilene Yenifer ImmunometricAssayPerformed at: [facility] [id number] Director: Louis Mariee PhD, Phone: [phone] Start: 07-06-[address] Win Matos MD Work Phone: Comment on above: Thyroglobulin Antibody measured by Arlette StreetMethodologyIt should be noted that the presence of thyroglobulinantibodies may not be pathogenic nor diagnostic, especiallyat very low levels. The assay furnace room supervisor has found thatfour percent of individuals without evidence of thyroiddisease or autoimmunity will have positive TgAb levels upto 4 IU/mL. Start: 05-17-[address] Win Matos MD Work Phone: Start: 08-06-2023 Diagnostic radiography of abdomen, decubitus and erect Dr. Win Matos Work Phone: Start: 07-19-2023 Diagnostic radiography of abdomen Dr. Maldonado Matos Work Phone: Start: 07-14-[address] Win Matos Work Phone: Start: 07-14-2023 Laminectomy,Lumbar Micro Decompression (Left) Dr. Win Matos Work Phone: Start: 06-25-2023 Nasal Screen MRSA/MSSA Dr. Win Matos Work Phone: Start: 05-15-[address] Win Matos Work Phone: Start: 04-26-2023 MRI of lumbar spine Dr. Win Matos Work Phone: Start: 04-17-2023 X-ray of lumbosacral spine Dr. Win Matos Work Phone: Start: 03-17-2023 Coronavirus COVID-19 PCR Start: 03-17-2023 Influenza Types A,B Direct FA (ROBERT) Start: 03-17-2023 Respiratory syncytial virus antigen assay Start: 05-14-2022 Bilateral mammography Start: 05-14-2022 Ultrasonography of breast Start: 05-30-2021 Screening mammography Start: 12-26-2014 Colonoscopy Anil Ortez APRN.ELECTRIC INSTALLER Work Phone: Start: 11-18-2014 Lipid 1996 panel - Serum or Plasma Anil Ortez APRN.ELECTRIC INSTALLER Work Phone: History of excision of lamina of lumbar vertebra for decompression of spinal cord History of lumbar laminectomy for spinal cord decompression Dr. Win Matos Work Phone: Plan of Treatment Date Care Activity Detail Author Start: 04-21-2028 Screening for malign ant neoplasm of cervix [facility] Start: 12-26-2024 Screening for malign ant neoplasm of colon [facility] Start: 04-22-2024 End: 04-22-2024 Patient encounter procedure 04/22/2024 3:45 PM EST Office Visit OB/Gynecology [address] [place] [address] Anil Ortez APRN.ELECTRIC INSTALLER [address] [place] [place] [address] ANNUAL OB/Gynecology Comment on above: ANNUAL Start: 12-07-2023 Influenza vaccination Influenz a Vaccine (Season Ended) [facility] Start: 07-19-2023 [facility] Start: 07-15-2023 Patient discharge [facility] Start: 07-14-2023 Continuous pulse oximetry [facility] Start: 07-14-2023 Application of intermittent pneumatic compression device [facility] Start: 07-14-2023 Catheterization of vein [facility] Start: 07-14-2023 Consultation [facility] Start: 07-14-2023 Following clinical p athway protocol [facility] Start: 07-14-2023 Incentive spirometry [facility] Start: 07-14-2023 Measuring intake and output [facility] Start: 07-14-2023 Neurovascular assessment [facility] Start: 07-14-2023 Oxygen therapy [facility] Start: 07-14-2023 Patient education [facility] Start: 07-14-2023 Procedure discontinued [facility] Start: 07-14-2023 Provision of activit y privileges [facility] Start: 07-14-2023 Recommendation to co ntinue with treatment [facility] Start: 07-14-[address] [facility] Start: 07-14-2023 Taking patient vital signs [facility] Start: 07-14-2023 [facility] Start: 07-14-2023 Anesthesia lumbar re gion nos ANESTH SPINE CORD SURGERY [facility] Start: 07-14-2023 Lamnotmy incl w/dcmp rsn nrv root 1 intrspc lumbr LOW BACK DISK SURGERY [facility] Start: 07-14-[address] [facility] Start: 05-01-2023 Patient referral [facility] Work Phone: Start: 04-17-2023 Patient referral [facility] Work Phone: Start: 04-10-2023 [facility] Start: 04-07-2023 Behavioral Health Screening Behavioral Health Screening [facility] Start: 12-06-2022 Covid-19 Vaccine ( season) Covid-19 Vaccine () [facility] Start: 2020 RSV Vaccine (1 - 1-d ose 60+ series) RSV Vaccine (1 - 1-dose 60+ series) [facility] Start: 11-19-2019 Lipid panel Lipid Screening [facility] Start: 08-01-2018 Diabetes Screening Diabetes Screenin g [facility] Start: 03-18-2018 Shingrix Vaccine (2 of 2) White grix Vaccine (2 of 2) [facility] Start: 12-14-2015 Screening for malign ant neoplasm of breast Mammogram Screening [facility] Start: 2005 Screening for malign ant neoplasm of colon [facility] Start: 1979 Urine microalbumin profile DTa P,Tdap,Td Vaccine (1 - Tdap) [facility] Start: 1978 Annual PCP Team Director Of Consulting Services [facility] Annual [facility] Team Chronic Disease Visit [facility] Start: 1978 BP Controlled (<130/80) BP Con trolled (<130/80) [facility] Start: 1978 Hepatitis C screening Hepatitis C Sc [facility] Start: 1978 HIV screening HIV Screening [facility] CBC W Auto Different ial panel - Blood [facility] Hepatitis A virus Ab [Presence] in Serum [facility] Partial thromboplast in time, activated [facility] Patient Education [facility] Work Phone: Patient referral [facility] Work Phone: Prothrombin time [facility] T4 free measurement [facility] T4 free measurement [facility] Thyroglobulin and Thyrogobulin Ab panel - Serum or Plasma [facility] Thyroglobulin and Thyrogobulin Ab panel - Serum or Plasma [facility] Thyroid stimulating hormone measurement [facility] Thyroid stimulating hormone measurement [facility] Immunizations Immunization Date Immunization Notes Care Provider Fa [facility] 02-03-2018 Influenza virus vaccine W [facility] 02-03-2018 influenza virus vaccine, unspecified formulation Anil Perkinsshine [employer] BATTERY CHARGER.ELECTRIC INSTALLER Work Phone: [facility] 01-10-2014 influenza, seasonal, injectable Anilisabell Perkinsshine [employer] BATTER[employer] CHARGER.ELECTRIC INSTALLER Work Phone: [facility] Work Phone: Payers Date Payer Category Payer Unknown [id number] 2023 Self-pay [id number] 2023 Unknown MMO MMO [employer]HS [id number] 2023-Present [phone] [address] [place] [address] Indemnity [id number] 2015 Unknown [id number] 1960 Unknown [id number] Unknown [id number] [id number] Unknown [id number] 2.16.840.1.763024.3.579.2.462 Unknown [id number] 2.16.840.1.273222.3.579.2.462 Unknown [id number] 2.16.840.1.887967.3.579.2.462 Unknown [id number] 2.16.840.1.814984.3.579.2.462 Unknown [id number] 2.16.840.1.656320.3.579.2.462 Unknown [id number] 2.16.840.1.995590.3.579.2.462 Unknown [id number] 2.16.840.1.145579.3.579.2.462 Unknown [id number] 2.16.840.1.513314.3.579.2.462 Unknown [id number] 2.16.840.1.339582.3.579.2.462 Unknown [id number] 2.16.840.1.863038.3.579.2.462 Unknown [id number] 2.16.840.1.260818.3.579.2.462 Unknown [id number] 2.16.840.1.114845.3.579.2.462 Unknown [id number] 2.16.840.1.592468.3.579.2.462 Unknown [id number] 2.16.840.1.755014.3.579.2.462 Unknown [id number] 2.16.840.1.952993.3.579.2.462 Unknown [id number] 2.16.840.1.401662.3.579.2.462 Unknown [id number] 2.16.840.1.964664.3.579.2.462 Unknown [id number] 2.16.840.1.431597.3.579.2.462 Unknown [id number] Social History Date Type Detail Facility Start: 02-01-2021 End: 03-15-2022 Tobacco smoking status NHIS Unknown if ever smoked [facility] Start: 1960 Sex Assigned At Female W [facility] Start: 04-21-2023 End: 12-22-2023 Tobacco smoking status NHIS Never smoked tobacco [facility] Start: 04-21-2023 Tobacco use and exposure Smokeless tobacco non-user [facility] Start: 04-21-2023 Alcohol intake Current non-dr 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 (finding) [facility] Start: 04-21-2023 History of Social function [facility] Start: 04-21-2023 Tobacco use panel [facility] National Score (1-100), lower number is lower risk 51 [facility] Start: 1960 Sex Assigned At Not on file [facility] Start: 06-22-2024 End: 07-20-2024 Sex Female (finding) [facility] Medical Equipment Procedure Code Equipment Code Equipment Origin al Text Equipment Identifier Dates PATCH,AMNION 2X3CM FDA Start: 07-14-2023 PATCH,AMNION 2X3CM FDA Start: 07-14-2023 PATCH,AMNION 2X3CM FDA Start: 07-14-2023 PATCH,AMNION 2X3CM FDA Start: 07-14-2023 PATCH,AMNION 2X3CM FDA Start: 07-14-2023 PATCH,AMNION 2X3CM FDA Start: 07-14-2023 PATCH,AMNION 2X3CM FDA Start: 07-14-2023 PATCH,AMNION 2X3CM FDA Start: 07-14-2023 PATCH,AMNION 2X3CM FDA Start: 07-14-2023 PATCH,AMNION 2X3CM FDA Start: 07-14-2023 PATCH,AMNION 2X3CM FDA Start: 07-14-2023 PATCH,AMNION 2X3CM FDA Start: 07-14-2023 Goals Date Patient Goal Desired Activity /State Functional Status Date Assessment Result Facility 07-15-2023 Functional status Ambulates [facility] Work Phone: Mental Status Date Assessment Result Facility 07-15-2023 Cognitive function Level Of Cons ciousness Awake;Alert;Appropriate;Follow s Commands [facility] Work Phone: 07-15-2023 Cognitive function Appropriate;Cooperativ e [facility] Work Phone: 07-14-2023 Cognitive function Arousable To Voice/Nam e [facility] Work Phone: Clinical Notes 09-25-2022 to 10-06-2024 Note Date & Type Note Facility 10-06-2024 Radiology Diagnostic study note [facility] Imaging Services [address] [place] [address] Sinus/Facial Bone MR#: [id number] Acct: [id number] Name: GINETTE MACKENZIE Rep #: [id number] : [id number] F [id number] From: Lee [place] MD PCP: Dr. Win Matos MD Status: REG C ALLISON Study:Sinus/Facial Bone Date of Exam: Exam# [id number] Ordering Dr: Javi Lenz MD PROCEDURE: SINUS/FACIAL BONE 10/05/2024 REASON FOR EXAM: CYST AND MUCOCELE OF NOSE AND NASAL SINUS TECHNIQUE: SINUS/FACIAL BONE Coronal and Sagittal reconstruction series were provided. One or more dose reduction techniques were used (e.g., Automated exposure control, adjustment of the mA and/or kV according to patient size, use of iterative reconstruction technique). RADIATION DOSE SUMMARY: CTDlvol: 29.38 mGy DLP: 731.11 mGycm COMPARISON: None. FINDINGS: Mlnk-ib-buzhpbyr degenerative changes of the visualized portions of the cervicalspine. Mild anterior subluxation of C4 upon C5 is also noted. Mild mucosal thickening is seen of the bilateral ethmoid maxillary sinuses. Minimal mucosal thickening is seen of the right sphenoid sinus. No air-fluid level is noted. The remaining paranasal sinuses appear clear. No ostial obstruction is evident on either side. No significant degree nasal septal deviation is noted. No nasal mass is identified. Mastoids/Middle Ears: Extensive partial opacification of right mastoid air cellsis seen, of uncertain chronicity. Left mastoid air cells appear clear. No osseous destructive change is seen. No orbital pathology is evident. CT/Sinus/Facial Bone IMPRESSION: 1. Mild chronic appearing paranasal sinus disease. 2. Additional findings as noted. Reading Location: [place] [address] CC: Dr. Javi Lenz MD; Dr. Win Matos MD ~ Marketing Proposal Specialist: Signed [place] [id number] Radiology Diagnostic study note [facility] Imaging Services [address] [place], [place] [address] L/S Spine Min 4 Views MR#: [id number] Acct: [id number] Name: GINETTE MACKENZIE Rep #: [id number] : 1960 F 64 From: Zandra Kendall MD PCP: Dr. Win Matos MD Status: REG C LI Study:L/S Spine Min 4 Views Date of Exam: 10/05/24 Exam# [id number] Ordering Dr: Javi Lenz MD PROCEDURE: L/S SPINE MIN 4 VIEWS 10/05/2024 REASON FOR EXAM: MUSCLE SPASM OF BACK, LOW BACK PAIN TECHNIQUE: L/S SPINE MIN 4 VIEWS COMPARISON: No FINDINGS: Diffuse facet arthritis most pronounced L3 through S1. Relative disc space preservation. Grade 1 anterolisthesis L4 on L5. No acute bone or soft tissue pathology. RAD/L/S Spine Min 4 Views IMPRESSION: Lumbar spine degeneration Reading Location: [place] [address] CC: Dr. Javi Lenz MD; Dr. Win Matos MD ~ Marketing Proposal Specialist: Signed [facility] 09-30-2024 Evaluation note Diagnosis Onset Date Resolution Easy bruising chronic September 30, 2024 8:36am [employer] Work Phone: 1(456) 924-354206-26-2025 Evaluation note* Diagnosis Onset Date Resolution Status Admit Date Easy bruising chronic September 30, 2024 8:36am Left knee DJD acute October 04, 2024 8:04am Right knee DJD acute October 04, 2024 8:04am Obesity chronic October 04 8:04am [employer] Work Phone: 1(790) 742-917006-26-2025 Evaluation note* Diagnosis Onset Date Resolution Status Admit Date Easy bruising chronic September 30, 2024 8:36am Left knee DJD acute October 04, 2024 8:04am Right knee DJD acute October 04, 2024 8:04am Obesity chronic October 04 8:04am Easy bruising chronic October 06 025 9:54am [facility] Work Phone: 1([phone]) 736-324202-21-2025 Evaluation note* Diagnosis Onset Date Resolution Status Admit Date Left knee DJD acute May 282024 10:26am Right knee DJD acute May 092024 10:26am Obesity chronic May 28, 2024 10:26am [facility] Work Phone: 1([phone]) 207-100512-13-2024 Evaluation note* Diagnosis Onset Date Resolution Status Admit Date Postoperative primary hypothyroidism chronic March 19, 2 024 10:14am Thyroid cancer chronic March 072023 10:14am Left knee DJD acute May 282024 10:26am Right knee DJD acute May 092024 10:26am Obesity chronic May 28, 2024 10:26am [facility] Work Phone: 1(818) 857-915804-23-2024 Telephone encounter Note* Telephone Encounter - Tsering Hardin LPN - 07/29/2023 12:59 PM EDT See pt refill request below and further advise. Tsering Hardin LPN [facility]04-23-2024 Miscellaneous Notes* Telephone Encounter - Tsering Hardin LPN - 07/29/2023 12:59 PM EDT See pt refill request below and further advise. Tsering Hardin LPN * Telephone Encounter - Paula Pride - 07/29/2023 9:28 AM EDT Patient has been identified by name and date of : Yes, Provider JOS Patient phones for refill(s): Requested Prescriptions Pending Prescriptions Disp Refills estradiol (ESTRACE) 0.01 % (0.1 mg/gram) vaginal cream Sig: Use 2 g vaginally. Date of last office visit in primary care: 04/21/2023 Date of next office visit in primary care: 04/22/2024 Please advise. Thank you. Paula Pride. [facility] Telephone encounter Note * Telephone Encounter - Pride, Paula - 07/29/2023 9:28 AM EDT Patient has been identified by name and date of : Yes, Provider JOS Patient phones for refill(s): Requested Prescriptions Pending Prescriptions Disp Refills estradiol (ESTRACE) 0.01 % (0.1 mg/gram) vaginal cream Sig: Use 2 g vaginally. Date of last office visit in primary care: 04/21/2023 Date of next office visit in primary care: 04/22/2024 Please advise. Thank you. Paula Pride. [facility]04-15-2024 Discharge summary Author Star Polanco [facility] July 21, 2023 11:30am Note Date/Time July 21, 2023 11: 23am [facility] [address] [place] [address] [address] [place] [address] / REHABILITATION SERVICES DISCHARGE SUMMARY MR#: [id number] Acct: [id number] Name: GINETTE MACKENZIE Rep #: [id number] : 1960 63 From: Cert. MUSA Hand, [facility] Referring Dr.: Dr. Ritesh Aguilar MD Status: REG RCR Insurance: [employer] SELF PAY INSURANCE Patient Information Patient Information: GINETTE MACKENZIE was seen in my office for initial evaluation on 05/12/23. The following Plan of Care was established for this patient: POC Established Initial Frequency: 2x /Week Initial Duration: 4 Weeks Anticipated Interventions Patient/Client Instruction: Educate patient on: Condition and Plan of Care For the Purpose of:: To decrease pain, To increase ROM, To improve muscle performance and motor function, To improve ability to perform ADL's, To increasetolerance to activity/condition/position, To improve performance and independence with ADL's, To improve ability of physical actions for home/community/work/leisure, To improve gait and locomotor functions, To increase flexibility/ROM and To improve tolerance to ADL's Therapeutic Exercise to Include: Strength training, Body mechanics, Postural training, Flexibilty training, Active ROM and Dynamic Lumbar Stabilization For the Purpose of:: To decrease pain, To increase ROM, To improve muscle performance and motor function, To improve ability to perform ADL's, To increasetolerance to activity/condition/position, To improve performance and independence with ADL's, To improve ability of physical actions for home/community/work/leisure, To increase flexibility/ROM, To reduce risk of recurrence and To improve tolerance to ADL's TENS: Yes IF ES: Yes Cryotherapy (ice pack, ice massage): Yes Thermo therapy (hot pack): Yes Ultrasound (thermal/non thermal): Yes For the Purpose of:: To decrease pain, To increase ROM, To improve nutrient delivery to tissue, To increase oxygenation perfusion, To improve health of tissue and To decrease soft tissue restriction Last Seen Last Seen: This patient was last seen in our office . Pertinent comments regarding their Physical therapy will appear below: Patient seen for PT for lumbar radiculopathy had MRI see for results and f/b lumbar surgery At this point I will be discontinuing this patient from physical therapy. I would be happy to see this patient again in the future if found appropriate by the physician. Thank you! Star Polanco, PT, Cert T, OCS Balance/Gait/Functional tests Balance/Special Test Scores Oswestry Low Back Score: 19 <Electronically signed by Star Polanco PT, Cert. MUSA, OCS> 07/21/23 1130 CC: Dr. Ritesh Aguilar MD; Dr. Win Matos MD ~ DAVID Signed [facility] Work Phone: 1(264) 875-520804-13-2024 Discharge summary Author Keli Arauz [facility] July 19, 2023 9:03pm Note Date/Time July 19, 2023 7:1 0pm [facility] Medical Records Department [address] [place] [address] Emergency Department Summary 07/19/23 MR#: [id number] Acct: [id number] Name: GINETTE MACKENZIE Rep #:[id number] : 1960 63 From: Keli Arauz MD PCP: Dr. Win Matos MD Status:REG E R Location: ED HPI History of Present Illness Chief Complaint: Constipation Informant: patient Onset/Context/Timing Onset: Days Context: Gradual Onset Narrative Narrative: Patient presents secondary to concerns for constipation. She had lumbar laminectomy and decompression on July [address] Gunn. She was discharged home to the hospital on Friday the . She states she had a couple small bowel movements that day, but has not been able to pass stool sincethat time. She is passing some gas. She feels that her abdomen is distended. She called her surgeon's office yesterday complaining of nausea and was given a prescription for Zofran. She called back today complaining of constipation and they called in a prescription for Dulcolax for her. She states she vomited thisafternoon after taking the Dulcolax. Her last dose of Zofran was this morning. The directions on the Zofran prescription was for 1 tab daily. [facility] Medical History Arthritis Back pain Bigeminy Cardiology follow-up encounter COVID-19 virus detected (01/2020) Daytime somnolence Easy bruising Endometrial hyperplasia without atypia, simple Essential hypertension Gastric reflux Non-smoker Obesity Peripheral neuropathy PONV (postoperative nausea and vomiting) Postmenopausal bleeding Postoperative primary hypothyroidism Premature ventricular contractions Thyroid cancer Home Medications omeprazole 20 mg capsule,delayed release 20 mg PO DAILY 03/11/18 [History Last Taken 07/14/23] valsartan 320 mg-hydrochlorothiazide 12.5 mg tablet 1 ea PO DAILY 03/11/18 [History Last Taken 07/13/23] metoprolol tartrate 25 mg tablet 25 mg PO BID #180 tabs 04/05/21 [Rx Last Taken 07/14/23] levothyroxine 125 mcg tablet 125 mcg PO DAILY #90 tabs 03/21/23 [Rx Last Taken 07/14/23] potassium chloride 10 mEq capsule,extended release 10 meq PO DAILY 06/13/23 [History Last Taken 07/13/23] hodykqcq-xbf-eisy 18 mg-mfolate 800 mcg DFE-vit K 150 mcg-herb tablet (Alive Women's Ultra Potency) 1 tab PO DAILY 06/24/23 [History Last Taken 07/06/23] melatonin 5 mg capsule 5 mg PO QHS PRN sleep 07/14/23 [History Last Taken Unknown] omega 2-qwh-osz-fish oil 300 mg-1,000 mg capsule (Fish Oil) 1 cap PO DAILY 07/14/23 [History Last Taken Unknown] oxycodone-acetaminophen 5 mg-325 mg tablet 1 tab PO Q6H PRN pain 7 days #30 tabs07/15/23 [Rx Last Taken Unknown] ondansetron HCl 4 mg tablet 4 mg PO DAILY PRN nausea and vomiting 5 days #5 tabs07/18/23 [Rx Last Taken Unknown] bisacodyl 5 mg tablet,delayed release (Dulcolax (bisacodyl)) 5 mg PO BID PRN constipation 3 days #6 tabs 07/19/23 [Rx Last Taken Unknown] magnesium citrate 300 ml PO X1 #1 BOTTLE 07/19/23 [Rx Last Taken Unknown] promethazine 25 mg tablet 25 mg PO TID PRN nausea and vomiting #14 tabs 07/19/23[Rx Last Taken Unknown] Allergy/AdvReac Type Severity Reaction Status Date / Time latex Allergy Itching Verified 07/19/23 18:54 Family History Unknown No problems noted. Surgical History History of cervical polypectomy History of laparoscopic-assisted vaginal hysterectomy (06/04/18) History of removal of neck cyst History of thyroid surgery Status post laminectomy [place] teeth extracted Social History adopted: Yes (does not know medical history) Smoking Status: Never smoker alcohol intake: never substance use type: does not use caffeine: No what type of physical activity do you participate in: other details: yard work ROS ROS ED Constitutional Constitutional ED: Denies chills or fever(s) Eyes Eyes: Denies discharge from eye(s) ENT ENT ED: Denies discharge from eye(s), rhinorrhea or sore throat Cardiovascular Cardiovascular: Denies chest pain Respiratory/Chest Respiratory/Chest: Denies cough or dyspnea Gastrointestinal Gastrointestinal: Reports abdominal pain, constipation, nausea and vomiting; Denies diarrhea Genitourinary Genitourinary ED: Denies dysuria Musculoskeletal Musculoskeletal: Denies extremity pain Integumentary Denies Abrasions or rash Neurologic Neurologic: Denies headache(s) or weakness Psychiatric Psychiatric: Denies anxiety or depression Allergic/Immunologic Allergic/Immunologic ED: Denies lip swelling or urticaria EXAM Physical Exam Const Vital Signs: 07/19/23 18:54 Temperature 96.5 F L Temperature Source Temporal Pulse Rate 94 Respiratory Rate 18 Blood Pressure 126/89 H Blood Pressure Mean 101 Pulse Ox 97 Oxygen Delivery Method Room Air Positive well nourished and well developed General Appearance ED: well developed HEENT Reports moist mucous membranes Eyes EOMs intact bilaterally Chest Wall inspection of chest normal and palpation of chest normal Resp normal respiratory effort and clear to auscultation bilaterally Cardio regular rate and regular rhythm GI GI Narrative: Abdomen slight distended but soft. No focal tenderness to palpation. Hypoactive but present bowel sounds are noted. Extremity normal to inspection Neuro oriented x3 Skin no rashes or lesions noted MDM MDM MDM Narrative Medical decision making narrative: Patient sent for abdominal x-ray to evaluate bowel gas pattern. If distal stoolis noted she will receive a soapsuds enema. Treatment and Re-Evaluation :: Abdominal x-ray per my interpretation reveals increased stool mostly over the ascending colon. No bowel obstruction. Test results discussed with the patient. She did have a soapsuds enema and had moderate results. Patient states that she does still feel nauseated despite receiving a dose of Zofran here. I will write her prescription for Phenergan along with magnesium citrate. Patient comfortable with the plan. Return instructions given. Discharge Plan Triage Chief Complaint: Constipation ED Provider: Keli Arauz Dx/Rx/DC Orders Clinical Impression: Constipation Instructions: ED Constipation (Adult) Prescriptions: New magnesium citrate Solution 300 ml PO X1 Qty: 1 0RF Rx Instructions: Drink half bottle of magnesium citrate. If no relief in 3 hours, drink the remainder of the bottle. promethazine 25 mg tablet 25 mg PO TID PRN (Reason: nausea and vomiting) Qty: 14 0RF No Action levothyroxine 125 mcg tablet 125 mcg PO DAILY Qty: 90 3RF potassium chloride 10 mEq capsule, extended release 10 meq PO DAILY Patient Comments: take 1 capsule by mouth once daily omeprazole 20 MG capsule,delayed release(DR/EC) 20 mg PO DAILY valsartan-hydrochlorothiazide 1 EACH tablet 1 ea PO DAILY Alive Women's Ultra Potency 18 mg-800 mcg DFE-150 mcg tablet 1 tab PO DAILY omega 1-ydt-nae-fish oil [Fish Oil] 300-1,000 mg capsule 1 cap PO DAILY melatonin 5 mg capsule 5 mg PO QHS PRN (Reason: sleep) Patient Comments: patient unsure of dose for this metoprolol tartrate 25 mg tablet 25 mg PO BID Qty: 180 3RF oxycodone-acetaminophen 5-325 mg tablet 1 tab PO Q6H PRN (Reason: pain) 7 Days Qty: 30 0RF ondansetron HCl 4 mg tablet 4 mg PO DAILY PRN (Reason: nausea and vomiting) 5 Days Qty: 5 0RF bisacodyl [Dulcolax (bisacodyl)] 5 mg tablet,delayed release (DR/EC) 5 mg PO BID PRN (Reason: constipation) 3 Days Qty: 6 0RF Primary Care Provider: Win Matos Chi Referrals: Stiven Gunn DO [Med Staff - Active Staff] - 3-5 Days if not improving Win Matos Chi, MD [Primary Care Provider] - 3-5 Days if not improving Disposition Disposition: Home, Self Care What to do if you have Problems For any increased pain, shortness of breath, bleeding, nausea or vomiting, chestpain, or any unexpected problems, contact your Primary Care Provider. Call [facility] ([phone]) or report to the closest Emergency Room. Call 911 if necessary. 07/19/232102 <Electronically signed by Keli Arauz MD> Cosigner Signature (if applicable): CC: Dr. Win Matos MD ~ Signed [facility] Work Phone: 1(912) 848-330104-09-2024 Discharge summary Author Stiven Gunn [facility] July 15, 2023 1:32pm Note Date/Time July 15, 2023 1:22 pm [facility] Medical Records Department [address] [place] [id number] Instructions for Home/Discharge Instructions 07/15/23 1320 MR#: [id number] Acct: [id number] Name: GINETTE MACKENZIE Rep #:[id number] : 1960 63 From: Stiven Rainey PCP: Dr. Win Matos MD Status:ADM I NO Discharge Instructions Activity May shower in (days): 5 May resume sexual activity in: 4-6 weeks Lifting Restrictions: 15# Dressing / Incision Remove Dressing in: 4 days Follow Up Care Test Results: Test results from this visit will be discussed in further detail at your follow- up appointment, if applicable. Discharge Plan Admission Admit Date/Time: 07/14/23 13:37 Primary Reason for Your Visit: back surgery Attending Provider: Shereen Camp Primary Care Provider: Win Matos Chi Consulting Providers: Barbara Vernon; Monty Hernández; Leidy Salazar; Leidy Glover; Scarlet Skinner; America Thrasher; Bijal Robles; Jose Alberto Muhammad; Jose Alberto Parks; Del Vallejo; Tony Chino; Joe Jacobson; Abisai Chiu; Star Nazairo; Shereen Camp; Jamil Perkins; Malina Pelletier; Louis Gilbert; Flo Perez; Lebron Malcolm; Amaya Dawn; Viet Heredia;Sonya Lombardo [employer]; Neo Villeda; Stiven Gunn Discharge Orders/Prescriptions Prescriptions: No Action levothyroxine 125 mcg tablet 125 mcg PO DAILY Qty: 90 3RF potassium chloride 10 mEq capsule, extended release 10 meq PO DAILY Patient Comments: take 1 capsule by mouth once daily omeprazole 20 MG capsule,delayed release(DR/EC) 20 mg PO DAILY valsartan-hydrochlorothiazide 1 EACH tablet 1 ea PO DAILY Alive Women's Ultra Potency 18 mg-800 mcg DFE-150 mcg tablet 1 tab PO DAILY omega 7-bzb-wua-fish oil [Fish Oil] 300-1,000 mg capsule 1 cap PO DAILY melatonin 5 mg capsule 5 mg PO QHS PRN (Reason: sleep) Patient Comments: patient unsure of dose for this metoprolol tartrate 25 mg tablet 25 mg PO BID Qty: 180 3RF Other Ambulatory Orders: Hepatitis A AB, Total (Routine) Timeframe: [id number] Facility: [facility] - Location: Laboratory Ordered By: Dr. Sitven Gunn Referrals / Follow Up: Win Matos Chi, MD [Primary Care Provider] - Disposition Disposition (needs filled in before D/C Order can be placed): Home, Self Care 07/15/23 1332<Electronically signed by Stiven Gunn DO>Stiven Gunn DO CC: [employer]-C Sonya Lombardo; Del Vallejo MD; Dr. Scarlet Skinner MD; Dr. Monty Hernández DO; Dr. Barbara Vernon MD; Dr. Leidy Salazar MD; Dr. Liedy Glover MD; Dr. America Thrasher MD; Dr. Jose Alberto Parks MD; Dr. Jose Alberto Muhammad DO; Dr. Tony Chino DO; Dr. Joe Jacobson MD; Dr. Abisai Chiu MD; Dr. Shereen Camp DO; Dr. Stiven Gunn DO; Dr. Jamil Perkins DO; Dr. Bijal Robles DO; Dr. Malina Pelletier MD; Dr. Louis Gilbert MD;Dr. Amaya Dawn MD; Dr. Lebron Malcolm MD; Dr. Flo Perez MD; Dr. Win Matos MD; Star Nazario; SHWETA Gongora; Viet Heredia MD ~ Signed [facility] Work Phone: 1(890) 490-218404-08-2024 Progress note Author Louis Gilbert [facility] July 14, 2023 6:09pm Note Date/Time July 14, 2023 5:08 pm [facility] Medical Records Department [address] [place] [address] Progress Note - Hospitalist 07/14/23 1705 MR#: [id number] Acct: [id number] Name: GINETTE MACKENZIE Rep #:[id number] : 1960 63 From: Louis guzman MD PCP: Dr. Win Matos MD Status:ADM I NO Location: MS3 PA474-5 Subjective Subjective 63-year-old female presents to the hospital for an elective laminectomy and medial facetectomy L4-5 on the left with removal of facet cyst. She denies any changes to her medications recently and is doing well postoperatively. She still sleepy from anesthesia Objective Data Objective Data Vital Signs: Vital Signs Temp Pulse Resp BP Pulse Ox O2 Del Method O2 Flow Rate 97.2 F L 61 18 134/90 H 98 Nasal Cannula 4 07/14/23 15:51 07/14/23 15:51 07/14/23 15:51 07/14/23 15:51 07/14/23 15:51 07/14/23 16:05 07/14/23 16:05 Oxygen Flow Rate (L/min) 4 Oxygen Delivery Method Nasal Cannula Weight: 238 lb 1.588 oz Body Mass Index (BMI) 40.8 Intake & Output: Intake and Output for Last 24 Hours 07/13/23 07/14/23 07/15/23 03:59 03:59 03:59 Intake Total 1239 / 1239 Output Total 100 / 100 Balance 1139 / 1139 Lab / Micro Data 06/25/23 15:59 06/25/23 15:59 Labs: Laboratory Results - last 24 hr 07/14/23 09:27: POC Glucose 101 Micro: Microbiology 06/25/23 15:59 Swab (Method) Nasal Screen MRSA/MSSA - Final Radiography Diagnostic Testing: Radiology Impression Spine X-Ray 07/14/23 12:04 IMPRESSION: The localization instrument is seen posterior to the L3-L4 disc space level. Electronically Signed: Charli Ramirez MD at 12:48 EDT , Physical Exam Narrative General: Alert but sleepy, Oriented x3, Cooperative, No apparent distress HEENT: Atraumatic, PERRLA, EOMI, Normocephalic Oral: Dry mucosa Neck: Supple, No JVD Lungs: Diminished, Normal air movement, No rhonchi, No wheeze, No rales Cardiovascular: Regular rate, Regular Rhythm, Normal S1, Normal S2, No murmurs Abdomen: Soft, Non Tender, Non-Distended, No Hepato-splenomegaly Extremities: No edema, Capillary Refill Less than 3 Seconds Skin: Dressing CDI Musculoskeletal: No Tenderness to Palpation of Joints or Extremities Neurological: No focal neurological deficits, Motor Exam 5/5 strength throughout, Sensory exam intact to light touch and pain Psych/Mental Status: Normal Affect, Appropriate Assessment & Plan Assessment/Plan (1) Status post laminectomy: PLAN: Plan 1. Status post lumbar laminectomy with medial facetectomy on L4-5 on the left with removal of facet cyst on 07/14/2023 ? Pain management per primary ? PT/OT ? Discharge planning per primary 2. Essential HTN/HLD ? Blood pressure stable ? Can resume her home medications ? We will monitor make adjustments as necessary 3. Hypothyroidism ? Stabilized ? Continue with Synthroid 4. GERD ? Stable ? Continue with PPI DVT: Per primary Charges/Coding Visit Charges Office Visits / Consults: 28987 OV L3 New 30min 07/14/23 1809 <Electronically signed by Louis Gilbert MD> Cosigner Signature (if applicable): CC: ~ Signed [facility] Work Phone: 1(260) 856-381204-08-2024 Procedure [facility] 07-10-2023 History and physical note Author Stiven Gunn [facility] July 10, 2023 10:51am Note Date/Time July 10, 2023 10:5 1am [facility] Medical Records Department [address] [place] [address] History & Physical Exam 07/10/23 1051 MR#: [id number] Acct: [id number] Name: GINETTE MACKENZIE Rep #:[id number] : 1960 63 From: Stiven Rainey PCP: Dr. Win Matos MD Status:PRE S DC Location: [facility] [place] History and Physical MR#: [id number] Acct: [id number] Name: GINETTE MACKENZIE Rep #: [id number] : 1960 Provider: Dr. Stiven Gunn DO Age/Sex: 63/F [place] [facility] Status: Signed Intake Vital Signs 04/17/2407:01 :12 Height 5 ft 4 in 5 ft 4 in Weight: 242 lb 4 oz BMI 41.5 Intake Visit Reasons: LUMBAR SPINE Accompanied by: Self Is patient in pain?: Yes (2) Allergies latex Allergy (Verified 06/05/23 15:10) Itching Medications meloxicam 15 mg tablet 15 mg PO DAILY 03/11/18 [History Confirmed 06/05/23] omeprazole 20 mg capsule,delayed release 20 mg PO DAILY 03/11/18 [History Confirmed 06/05/23] valsartan 320 mg-hydrochlorothiazide 12.5 mg tablet 1 ea PO DAILY 03/11/18 [History Confirmed 06/05/23] omega-3 fatty acids 1,000 mg capsule (Fish Oil Concentrate) 1,000 mg PO DAILY 02/01/21 [History Confirmed 06/05/23] metoprolol tartrate 25 mg tablet 25 mg PO BID #180 tabs 04/05/21 [Rx Confirmed 06/05/23] levothyroxine 125 mcg tablet 125 mcg PO DAILY #90 tabs 03/21/23 [Rx Confirmed 06/05/23] prednisone 20 mg tablet 60 mg (3 x 20 mg) PO DAILY #15 TABLETS 04/10/23 [Rx Confirmed 06/05/23] [facility] Medical History (Updated 06/05/23 @ 16:[address] Stiven Gunn DO) Bigeminy COVID-19 virus detected (01/2020) Daytime somnolence Endometrial hyperplasia without atypia, simple Essential hypertension Hypothyroidism Obesity Peripheral neuropathy Postmenopausal bleeding Postoperative primary hypothyroidism Premature ventricular contractions Thyroid cancer Surgical History H/O: hysterectomy History of cervical polypectomy History of laparoscopic-assisted vaginal hysterectomy (06/04/18) History of removal of neck cyst History of thyroid surgery [place] teeth extracted Family History Unknown No problems noted. Social History adopted: Yes (does not know medical history) Smoking Status: Never smoker alcohol intake: never substance use type: does not use caffeine: No what type of physical activity do you participate in: other details: yard work HPI LUMBAR SPINE Details: This documentation accurately reflects the service provided and the decisions made by me, Dr. Stiven Gunn DO 06/05/23 1500. Part of today?s visit was documented by Sushma BOYLE, acting as scribe. GINETTE MACKENZIE is a 63 year old F here today for a Second Opinion discussion to talk about her Synovial cyst of lumbar facet joint. Patient doesn't want the rods, and screws in her back. She would just like hercyst popped if that is a possibility. Patient states no changes since she was last here. Ginette is most pleasant lady 63 years old who has a chief complaint of pain in her left buttocks and down her left thigh that sometimes goes below her knee andwhat seems to be an L5 dermatome. This was insidious in onset and she felt it first in February or March. By the time she saw Dr. Aguilar, my associate the pain was worse than it has been ever since. She does not have a lot of low backpain at all again is mostly in the left buttocks and down the left thigh and legit does go a little bit to the right buttocks and thigh but not too badly. 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 This does exacerbate the pain. On examination she has some pain with extension and some with flexion but more so with extension of her lumbar spine. It does radiate the pain into the left buttocks and thigh. She has good motor strength of all the major muscle groups of both lower extremities. She has 2+ patella and 2+ Achilles reflexes bilaterally. She has no long tract signs. Clonus is absent and Babinski's are downgoing. She can stand her toes and she can stand on her heels. I reviewed the MRI scan and plain x-rays. The MRI scan demonstrates that she has significant facet arthritis at L4-5 particularly on the left side. She alsohas a rather lateral large facet cyst coming into the canal and displacing the cauda equina towards the right. This may account for some mild right-sided symptoms. Of course it does account for all her left-sided symptoms. I explained to her that the reason Dr. Aguilar recommended the 360 degree fusion is because that way he can take out the entire facet that would include the cyst. I explained to her that the other way of doing this would be simply to doa laminectomy and remove the cyst cauterized the facet and do a medial facetectomy. This would be reasonable also. She opted for the latter. I discussed the case with Dr. Aguilar. He understood my rationale. As I explained to the patient both surgeries are reasonable she just did not want thelarger fusion. Dr. Aguilar asked me to do the surgery which will be a decompression with a medial facetectomy. He would like to scrub the case with me so that he can see how I do this particular surgery. I will see her again atpreop. Coding Level of Care Code Off vis,est,level 3 Diagnoses Synovial cyst of lumbar facet joint M71.38 Lumbar radiculopathy M54.16 07/10/23 1051 <Electronically signed by Stiven Gunn DO> Cosigner Signature (if applicable): CC: Dr. Stiven Gunn DO; Dr. Win Matos MD~ Signed [facility] Work Phone: 1(776) 349-552701-15-2024 NoteHNO ID: [id number] Author: ANIL ORTEZ APRN.ELECTRIC INSTALLER Service: ? Author Type: Nurse Practitioner Type: Progress Notes Filed: 04/21/2023 16:57 Note Text: Ginette is a 63 year old who presents for an annual gynecologic exam without complaints. Postmenopausal: Yes, hysterectomy 2019 - menorrhagia and cancerous cells of cervix per patient HRT use: No. 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 Unknown details of past pap smears so pap of vaginal cuff was done. Mammogram ordered at [facility], hx of lipoma that is followed by [facility] Self breast awareness encouraged. Nutrition, [...] for clobetasol use given, not intended for emt intermediate use Anil Ortez APRN.[facility]01-04-2024 Discharge summary Author George Myers [facility] April 10, 2023 2:13pm Note Date/Time April 10, 2023 2: 06pm [facility] Medical Records Department [address] [place] [address] Emergency Department Summary 04/10/23 MR#: [id number] Acct: [id number] Name: GINETTE MACKENZIE Rep #:[id number] : 1960 62 From: George Myers MD PCP: Dr. Win Matos MD Status:PRE E R Location: ED HPI History of Present Illness Chief Complaint: Back Informant: patient Narrative Narrative: Patient presents with back pain. Patient has been having back pain for 2 or 3 weeks. It had some radiation down the left leg earlier but that seems to be better. It does radiate to the buttock on occasion. No bowel or bladder dysfunction. No weakness. No she haschronic neuropathy for over 20 years but there is been no change in that. She is not diabetic. She has had no recent infections fevers chills or weight loss. No history of cancer. She is eating and drinking normally. She has tried svkr-jbw-bpppblm meds and chiropractor without any notable change. She has no history of trauma or falls. [facility] Medical History [place] COVID-19 virus detected (01/2020) Daytime somnolence Endometrial hyperplasia without atypia, simple Essential hypertension Hypothyroidism Obesity Peripheral neuropathy Postmenopausal bleeding Postoperative primary hypothyroidism Premature ventricular contractions Thyroid cancer Home Medications meloxicam 15 mg tablet 15 mg PO DAILY 03/11/18 [History Last Taken Unknown] omeprazole 20 mg capsule,delayed release 20 mg PO DAILY 03/11/18 [History Last Taken 06/04/18 03:30 20 MG] valsartan 320 mg-hydrochlorothiazide 12.5 mg tablet 1 ea PO DAILY 03/11/18 [History Last Taken Unknown] potassium chloride 10 mEq tablet,extended release 10 meq PO DAILY #90 tabs 06/05/20 [Rx Last Taken Unknown] calcium carbonate 600 mg calcium (1,500 mg) tablet (Calcium) 600 mg PO DAILY 02/01/21 [History Last Taken Unknown] omega-3 fatty acids 1,000 mg capsule (Fish Oil Concentrate) 1,000 mg PO DAILY 02/01/21 [History Last Taken Unknown] metoprolol tartrate 25 mg tablet 25 mg PO BID #180 tabs 04/05/21 [Rx Last Taken Unknown] hydrocodone-acetaminophen 5-325mg 5mg-325mg 1 tab PO Q6H PRN pain 3 days #10 tabs 01/29/22 [Rx Last Taken Unknown] ibuprofen 600 mg tablet 600 mg PO Q6H PRN PRN pain #20 tabs 01/29/22 [Rx Last Taken Unknown] ondansetron 4 mg disintegrating tablet 4 mg PO Q8H PRN nausea and vomiting #10 tabs 01/29/22 [Rx Last Taken Unknown] tamsulosin 0.4 mg capsule (Flomax) 0.4 mg PO DAILY #7 caps 01/29/22 [Rx Last Taken Unknown] lactobacillus combination no.9 4 billion cell capsule (Adult 50 Plus Probiotic) 4,000 mmu cells PO DAILY 03/15/22 [History Last Taken Unknown] levothyroxine 125 mcg tablet 125 mcg PO DAILY #90 tabs 03/21/23 [Rx Last Taken Unknown] hydrocodone-acetaminophen 5-325mg 5mg-325mg 1 tab PO Q6H PRN PRN Pain 3 days #10TABLETS 04/10/23 [Rx Last Taken Unknown] prednisone 20 mg tablet 60 mg (3 x 20 mg) PO DAILY #15 TABLETS 04/10/23 [Rx Last Taken Unknown] Allergy/AdvReac Type Severity Reaction Status Date / Time latex Allergy Itching Verified 04/10/23 11:33 Family History Unknown No problems noted. Surgical History H/O: hysterectomy History of cervical polypectomy History of laparoscopic-assisted vaginal hysterectomy (06/04/18) History of removal of neck cyst History of thyroid surgery [place] teeth extracted Social History adopted: Yes (does not know medical history) Smoking Status: Never smoker alcohol intake: never substance use type: does not use caffeine: No what type of physical activity do you participate in: other details: yard work ROS ROS ED ROS Narrative A complete review of systems was performed and is negative except as documented in the history of present illness. Some specific details below. Constitutional: No recent fevers or chills. No rigors. Patient has not generallyfelt ill. EYE: No discharge, visual complaints, or pain. ENT: No sinus pressure or pain. No nasal discharge. CV: No chest pain, pressure or aching. No palpitations or irregular beats. Patient has not been presyncopal or syncopal. Respiratory: No trouble breathing. No cough. No wheezing. No sputum production. No pain with breathing. GI: No abdominal pain. No nausea vomiting diarrhea. No blood in stool. No loss of bowel control. : No frequency dysuria or hematuria. No incontinence or urinary retention. Musculoskeletal: No recent trauma. No swelling. Please see history of present illness. Skin: No rash. No diaphoresis. No vesicles. Neuro: No new weakness or numbness but she has chronic neuropathy. No pain radiating down the legs now but it had been going down her left leg a week ago. It is now just to the buttock.. No weakness of ambulation. No sensory changes inthe extremities. Please see history of present illness also. Endocrine: No polyuria or polydipsia. EXAM Physical Exam Narrative Exam Narrative: CONSTITUTIONAL: Patient is nontoxic in appearance. The patient looks comfortable. Work of breathing looks normal. She is laughing with her friend asI walk into the room. HEENT: No notable trauma. Mucous membranes moist. No sinus tenderness. No sign of dental infection. EYES: No conjunctival injection. No pallor. NECK: No meningismus. No JVD. CARDIOVASCULAR: Regular rate. Regular rhythm. No notable murmur. No JVD. RESPIRATORY: No respiratory distress. Breathing is unlabored. No wheezes. No pain with a deep breath. GASTROINTESTINAL: Obese but not distended. Bowel sounds are normal. No tenderness. No guarding. No rebound. No palpable mass. No bruit. GENITOURINARY: No tenderness over the bladder. No CVA tenderness. MUSCULOSKELETAL: Atraumatic. No peripheral edema. No cord. No tenderness along the deep venous system. No asymmetry. Distal pulses are intact. She does have some mild paraspinal tenderness at around L3 and down. More on the left than the right. She has some sciatic notch tenderness in the buttock more on the left. NEUROLOGICAL: Patient is alert and oriented. No focal deficit noted. Patient can stand on toes and heels and do squats. Patellar reflex 1?2+ bilaterally and equal Achilles reflex 1+ bilaterally and equal SKIN: No noted rashes. No diaphoresis. No vesicles noted. No notable pallor. PSYCHIATRIC: Patient is calm. Mood is appropriate. Const Vital Signs: 04/10/23 11:33 Temperature 97.2 F L Temperature Source Temporal Pulse Rate 83 Respiratory Rate 16 Blood Pressure 125/85 H Blood Pressure Mean 98 Pulse Ox 97 Oxygen Delivery Method Room Air MDM MDM MDM Narrative Medical decision making narrative: Patient has been trying ynkf-ohn-zhwfdji nonsteroidals rest ice and chiropractor. I will give a short course of steroids. I will give her a few hydrocodone for pain. If she develops numbness tingling weakness bowel bladder dysfunction fever she needs to return. I do not think x-rays CT or blood work is needed at this time. There is no indication for this. She has no red flags of back pain. Follow-up as appropriate. Discharge Plan Triage Chief Complaint: Back ED Provider: George Myers Dx/Rx/DC Orders Clinical Impression: Left lumbosacral radiculopathy, Lower back pain Instructions: ED Back Pain (Acute or Chronic) Prescriptions: New hydrocodone-acetaminophen [hydrocodone-acetaminophen] 5-325 mg tablet 1 tab PO Q6H PRN PRN (Reason: Pain) 3 Days Qty: 10 0RF prednisone 20 mg tablet 60 mg PO DAILY Qty: 15 0RF No Action omega-3 fatty acids [Fish Oil Concentrate] 1,000 mg capsule 1,000 mg PO DAILY calcium carbonate [Calcium 600] 600 mg calcium (1,500 mg) tablet 600 mg PO DAILY Adult 50 Plus Probiotic 4 billion cell capsule 4,000 mmu cells PO DAILY Rx Instructions: administer with a meal levothyroxine 125 mcg tablet 125 mcg PO DAILY Qty: 90 3RF meloxicam 15 MG tablet 15 mg PO DAILY omeprazole 20 MG capsule,delayed release(DR/EC) 20 mg PO DAILY valsartan-hydrochlorothiazide 1 EACH tablet 1 ea PO DAILY ibuprofen 600 mg tablet 600 mg PO Q6H PRN PRN (Reason: pain) Qty: 20 0RF hydrocodone-acetaminophen 5-325 mg tablet 1 tab PO Q6H PRN (Reason: pain) 3 Days Qty: 10 0RF tamsulosin [Flomax] 0.4 mg capsule 0.4 mg PO DAILY Qty: 7 0RF ondansetron 4 mg tablet,disintegrating 4 mg PO Q8H PRN (Reason: nausea and vomiting) Qty: 10 0RF potassium chloride 10 mEq tablet extended release 10 meq PO DAILY Qty: 90 3RF metoprolol tartrate 25 mg tablet 25 mg PO BID Qty: 180 3RF Primary Care Provider: Win Matos Chi Referrals: Win Matos Chi, MD [Primary Care Provider] - 3-5 Days Disposition Disposition: Home, Self Care What to do if you have Problems For any increased pain, shortness of breath, bleeding, nausea or vomiting, chestpain, or any unexpected problems, contact your Primary Care Provider. Call [facility] ([phone]) or report to the closest Emergency Room. Call 911 if necessary. 04/10/23 1413 <Electronically signed by George Myers MD> Cosigner Signature (if applicable): CC: Dr. Win Matos MD ~ Signed [facility] Work Phone: 1(819) 791-362606-21-2023 NotePap Smear Specimen AdequacyJune 2022 4:03pmComment.Satisfactory for evaluation. No endocervical cells are present. This isconsistent with a history ofhysterectomy.[facility] A#[id number] Health Akron CampusComment on above:Satisfactory for evaluation. No endocervical cells are present. This isconsistent with a history ofhysterectomy.09-25-2022 NotePap Smear Specimen AdequacyJune 2022 4:03pm Comment.Satisfactory for evaluation. No endocervical cells are present. This isconsistent with a history ofhysterectomy.[facility] A#[id number] Health Akron CampusComment on above:Satisfactory for evaluation. No endocervical cells are present. This isconsistent with a history ofhysterectomy.Discharge summary Author Stiven Gunn [facility] July 15, 2023 1:43pm Note Date/Time July 15, 2023 1:43 pm [facility] Medical Records Department [address] [place] [address] Discharge Summary 07/15/23 1341 MR#: [id number] Acct: [id number] Name: GINETTE MACKENZIE Rep #:[id number] : 1960 63 From: Stiven Rainey PCP: Dr. Win Matos MD Status:ADM I NO [place] [facility] [place] Prov[place] Date of Admission: 07/14/23 Primary Care Physician: Dr. Win Matos MD Attending Physician: This is discharge summary on Ginette Mackenzie. This patient was admitted yesterday 13 July. She underwent lumbar laminectomy with removal of cyst. She tolerated the procedure quite well. Today she reports that her leg pain is gone. She is very pleased. I gave her an shock her directions as to the care of the wound, when she can shower etc. She already has an appointment to see me in theoffice. We will send her home with some pain pills. I will see her again at the office. Consultations 07/14/23 15:48 Consult: Hospitalist Routine Consulting Provider: [facility] Reason for Consult: Medical Management EMERGENT Consult: No MD Notified: Yes Date Notified: 07/14/23 Time Notified: 13:39 Method of Notification: Text Reason For Visit: ERAS Lumbar laminectomy L4-5 left w Diagnosis Discharge Diagnosis (1) Status post laminectomy: Status: Acute Code(s): Z98.890 - Other specified postprocedural states Medications at Discharge Home Medications omeprazole 20 mg capsule,delayed release 20 mg PO DAILY 03/11/18 valsartan 320 mg-hydrochlorothiazide 12.5 mg tablet 1 ea PO DAILY 03/11/18 metoprolol tartrate 25 mg tablet 25 mg PO BID #180 tabs 04/05/21 levothyroxine 125 mcg tablet 125 mcg PO DAILY #90 tabs 03/21/23 potassium chloride 10 mEq capsule,extended release 10 meq PO DAILY 06/13/23 bfvloirs-akf-tawb 18 mg-mfolate 800 mcg DFE-vit K 150 mcg-herb tablet (Alive Women's Ultra Potency) 1 tab PO DAILY 06/24/23 melatonin 5 mg capsule 5 mg PO QHS PRN sleep 07/14/23 omega 2-naq-njg-fish oil 300 mg-1,000 mg capsule (Fish Oil) 1 cap PO DAILY 07/14/23 Weight / BMI Weight Weight: 238 lb 1.588 oz Body Mass Index (BMI) 40.8 ABG / Lab / Microbiology Data 07/15/23 06:57 07/15/23 06:57 Laboratory: Laboratory Results - last 24 hr 07/15/23 06:57: WBC 8.7, RBC 3.92 L, Hgb 11.2 L, Hct 34.4 L, MCV 87.8, MCH 28.6,MCHC 32.6, RDW Std Deviation 42.0, RDW Coeff of Neena 13.1, Plt Count 207, MPV 9.1, Immature Gran % (Auto) 0.300, Neut % (Auto) 74.3 H, Lymph % (Auto) 14.5 L, [place] % (Auto) 9.8, Eos % (Auto) 0.9, Baso % (Auto) 0.2, Absolute Neuts (auto) 6.4, Absolute Lymphs (auto) 1.26, Nucleated RBC % 0, Sodium 139, Potassium 3.7, Chloride 106, Carbon Dioxide 28.0, Anion Gap 5, BUN 13, Creatinine 0.85, Estim Creat Clear Calc 81.30, Est GFR (MDRD) Af Amer 87, Est GFR (MDRD) Non-Af 72, BUN/Creatinine Ratio 15.3, Glucose 97, Calcium 8.8 Microbiology: Microbiology 06/25/23 15:59 Swab (Method) Nasal Screen MRSA/MSSA - Final D/C Instructions May shower in (days): 5 May resume sexual activity in: 4-6 weeks Meaningful Use Info Meaningful Use Diagnoses (Choose all that apply): None applicable Discharge Plan Admission Admit Date/Time: 07/14/23 13:37 Primary Reason for Your Visit: back surgery Attending Provider: Shereen Camp Primary Care Provider: Win Matos Chi Consulting Providers: Barbara Vernon; Monty Hernández; Leidy Salazar; Leidy Glover; Scarlet Skinner; America Thrasher; Bijal Robles; Jose Alberto Muhammad; Jose Alberto Parks; Del Vallejo; Tony Chino; Joe Jacobson; Abisai Chiu; Star Nazario; Shereen Camp; Jamil Perkins; Malina Pelletier; Louis Gilbert; Flo Perez; Lebron Malcolm; Amaya Dawn; Viet Heredia;Sonya Lombardo [address] LIGHT CLEANER; Neo Villeda PA; Stiven Gunn Discharge Orders/Prescriptions Prescriptions: No Action levothyroxine 125 mcg tablet 125 mcg PO DAILY Qty: 90 3RF potassium chloride 10 mEq capsule, extended release 10 meq PO DAILY Patient Comments: take 1 capsule by mouth once daily omeprazole 20 MG capsule,delayed release(DR/EC) 20 mg PO DAILY valsartan-hydrochlorothiazide 1 EACH tablet 1 ea PO DAILY Alive Women's Ultra Potency 18 mg-800 mcg DFE-150 mcg tablet 1 tab PO DAILY omega 7-czd-ton-fish oil [Fish Oil] 300-1,000 mg capsule 1 cap PO DAILY melatonin 5 mg capsule 5 mg PO QHS PRN (Reason: sleep) Patient Comments: patient unsure of dose for this metoprolol tartrate 25 mg tablet 25 mg PO BID Qty: 180 3RF Other Ambulatory Orders: Hepatitis A AB, Total (Routine) Timeframe: [id number] Facility: [facility] - Location: Laboratory Ordered By: Dr. Stiven Gunn Referrals / Follow Up: Win Matos Chi, MD [Primary Care Provider] - Disposition Disposition (needs filled in before D/C Order can be placed): Home, Self Care 07/15/23 1343 <Electronically signed by Stivne Gunn DO> Cosigner Signature (if applicable): CC: Dr. Stiven Gunn DO; Dr. Win Matos MD~ Signed [facility] Work Phone: Evaluation noteNo assessment information available [facility] Work Phone: Evaluation note* Diagnosis Onset Date Resolution Status Postoperative primary hypothyroidism chronic Thyroid cancer chronic [facility] Work Phone: Evaluation note* Diagnosis Onset Date Resolution Status Postoperative primary hypothyroidism chronic Thyroid cancer chronic Lumbar radiculopathy acute [facility] Work Phone: Evaluation note* Diagnosis Onset Date Resolution Status Postoperative primary hypothyroidism chronic Thyroid cancer chronic Lumbar radiculopathy acute Spondylolisthesis, lumbar region acute Synovial cyst of lumbar facet joint acute [facility] Work Phone: Evaluation note* Diagnosis Onset Date Resolution Status Postoperative primary hypothyroidism chronic Thyroid cancer chronic Lumbar radiculopathy acute Synovial cyst of lumbar facet joint acute Synovial cyst of lumbar facet joint acute Lumbar radiculopathy acute Synovial cyst of lumbar facet joint acute Preoperative clearance acute Essential hypertension chron ic Premature ventricular contractions chronic Spinal stenosis at L4-L5 level acute Synovial cyst of lumbar facet joint acute Status post laminectomy acut e [facility] Work Phone: Evaluation note* Diagnosis Onset Date Resolution Status Lumbar radiculopathy acute Synovial cyst of lumbar facet joint acute Synovial cyst of lumbar facet joint acute Lumbar radiculopathy acute Synovial cyst of lumbar facet joint acute Preoperative clearance acute Essential hypertension chron ic Premature ventricular contractions chronic Spinal stenosis at L4-L5 level acute Synovial cyst of lumbar facet joint acute Status post laminectomy reso lved [facility] Work Phone: Evaluation note* Diagnosis Onset Date Resolution Status Lumbar radiculopathy acute Synovial cyst of lumbar facet joint acute Synovial cyst of lumbar facet joint acute Lumbar radiculopathy acute Synovial cyst of lumbar facet joint acute Preoperative clearance acute Essential hypertension chron ic Premature ventricular contractions chronic Spinal stenosis at L4-L5 level acute Synovial cyst of lumbar facet joint acute Status post laminectomy reso lved History of lumbar laminectom y for spinal cord decompression acute [facility] Work Phone: Reason for referral (narrative)No reason for referral information availableWSumma Health [facility] Campus Work Phone: Summary Purpose Family History No Family History Records FoundNo Family History Records FoundNo Family History Records Found Advance Directives No Advanced Directives Records Found Advance Directive Response Recorded Date/ Time Living Will No February 28th, 2 019 1:27pm Power of Photogeologist No June 04, 2018 1:27pm Advance Directive Response Recorded Date/ Time Living Will No January 29 8:51am Power of Photogeologist No January 29, 2022 8:51am Advance Directive Response Recorded Date/ Time Living Will No April 10 1:47pm Power of Photogeologist No April 10, 024 1:47pm Advance Directive Response Recorded Date/ Time Living Will No July 14, 2023 3:51pm Power of Photogeologist No July 13 3:51pm Advance Directive Response Recorded Date/ Time Living Will No July 19, 2023 7:18pm Power of Photogeologist No July 18 7:18pm Advance Directive Response Recorded Date/ Time Living Will No January 29 7:51am Power of Photogeologist No January 29, 2022 7:51am Advance Directive Response Recorded Date/ Time Living Will No January 29 8:51am Do you have a Healthcare Power of Photogeologist? No January 29, 2022 8:51am Chief Complaint and Reason for Visit Chief Complaint SCREENING TSH Chief Complaint TSH Chief Complaint RIGHT BREAST PAIN Chief Complaint Chills (without feve r) 1 Y FU SIATIC PAIN Reason for Visit Postoperative primar y hypothyroidism Thyroid cancer Chief Complaint Chills (without feve r) 1 Y FU SIATIC PAIN LUMBAR SPINE room 1 LT LUMOSACRAL RADICULPATHY Reason for Visit Postoperative primar y hypothyroidism Thyroid cancer Lumbar radiculopathy Chief Complaint Chills (without feve r) 1 Y FU SIATIC PAIN LUMBAR SPINE room 1 LT LUMOSACRAL RADICULPATHY LUMBAR SPINE LUMBAR RADICULOPATHY. RX HERE SCREEN Reason for Visit Postoperative primar y hypothyroidism Thyroid cancer Lumbar radiculopathy Spondylolisthesis, lumbar region Synovial cyst of lumbar facet joint Chief Complaint Chills (without feve r) 1 Y FU SIATIC PAIN LUMBAR SPINE room 1 LT LUMOSACRAL RADICULPATHY LUMBAR SPINE SCREEN LUMBAR RADICULOPATHY. 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 Lumbar radiculopathy Synovial cyst of lumbar facet joint Preoperative clearance Essential hypertension Premature ventricular contractions Spinal stenosis at L4-L5 level Synovial cyst of lumbar facet joint Status post laminectomy History of lumbar laminectomy for spinal cord decompression Chief Complaint Chills (without feve r) Chief Complaint Admit Date COPY PCP February 28, 2024 8:56am 1 Y FU March 19, 2024 10:14am SCREENING May 17, 2024 11:50am BL KNEES May 28, 2024 10:26am PAIN- COPY PCP June 11, 2024 8:25 am Reason for Visit Admit Date Postoperative primary hypothyroidism Mar 10:14am Thyroid cancer March 19, 2024 10:14am Left knee DJD May 28, 2024 10:26am Right knee DJD May 28, 2024 10:26am Obesity May 28, 2024 10:26am Chief Complaint Admit Date 1 Y FU March 19, 2024 10:14am SCREENING May 17, 2024 11:50am BL KNEES May 28, 2024 10:26am PAIN- COPY PCP June 11, 2024 8:25 am EORDER July 06, 2024 10:5 4am Chief Complaint Admit Date SCREENING May 17, 2024 11:50am BL KNEES May 28, 2024 10:26am PAIN- COPY PCP June 11, 2024 8:25 am EORDER July 06, 2024 10:5 4am Reason for Visit Admit Date Left knee DJD May 28, 2024 10:26am Right knee DJD May 28, 2024 10:26am Obesity May 28, 2024 10:26am Chief Complaint Admit Date PAIN- COPY PCP June 11, 2024 8:25 am EORDER July 06, 2024 10:5 4am EASILY BRUISING September 30, 2024 8:36 am Chief Complaint Admit Date PAIN- COPY PCP June 11, 2024 8:25 am EORDER July 06, 2024 10:5 4am EASILY BRUISING September 30, 2024 8:36 am BL KNEES October 04, 2024 8:04 am Reason for Visit Admit Date Easy bruising September 30, 2024 8:36 am Chief Complaint Admit Date PAIN- COPY PCP June 11, 2024 8:25 am EORDER July 06, 2024 10:5 4am EASILY BRUISING September 30, 2024 8:36 am BL KNEES October 04, 2024 8:04 am Cyst and mucocele of nose and nasal sinu s October 05, 2024 2:15pm 1 WEEK, [facility] October 06, 2024 9:54a m Reason for Visit Admit Date Easy bruising September 30, 2024 8:36 am Left knee DJD October 04, 2024 8:04 am Right knee DJD October 04, 2024 8:04 am Obesity October 04, 2024 8:04 am Reason for Visit Admit Date Easy bruising September 30, 2024 8:36 am Left knee DJD October 04, 2024 8:04 am Right knee DJD October 04, 2024 8:04 am Obesity October 04, 2024 8:04 am Easy bruising October 06, 2024 9:54a m Additional Source Comments INFORMATION SOURCE (unrecogn ized section and content) DATE CREATED AUTHOR 05/21/2021 [facility] DATE CREATED AUTHOR AUTHOR'S ORGANIZ ATION 04/27/2023 [facility] DATE CREATED AUTHOR AUTHOR'S ORGANIZ ATION 10/08/2024 [facility] Goals (unrecognized section and content) Goals may be documented in a n alternate sectionGoals may be documented in an alternate sectionGoals may be documented in an alternate sectionGoals may be documented in an alternate sectionGoals may be documented in an alternate sectionGoals may be documented in an alternate sectionGoals may be documented in an alternate sectionGoals may be documented in an alternate sectionGoals may be documented in an alternate sectionGoals may be documented in an alternate sectionGoals may be documented in an alternate sectionGoals may be documented in an alternate sectionGoals may be documented in an alternate sectionGoals may be documented in an alternate sectionGoals may be documented in an alternate sectionGoals may be documented in an alternate sectionGoals may be documented in an alternate section Care Teams (unrecognized sec tion and content) Team Status: Active Member Role Status Dates Dr. Win Matos MD Family Provider Active Dr. Win Matos MD Primary Care Provider Active Team Status: Inactive Member Role Status Dates Dr. Win Matos MD Primary Care Provi ralph, Attending Provider, Referring Provider Active Team Status: Inactive Member Role Status Dates Dr. Win Matos MD Primary Care Provider, Attending Provider Active Team Status: Inactive Member Role Status Dates Dr. Win Matos MD Primary Care Provider Active Dr. Nayeli Puente DO Attending Provider Active Team Status: Inactive Member Role Status Dates Dr. Win Matos MD Primary Care Provider, Referring Provider Active Dr. Chaitanya Leblanc MD Attending Provider Active Team Status: Inactive Member Role Status Dates Dr. Win Matos MD Primary Care Provider Active Dr. George Myers MD Emergency Provider Active Team Status: Inactive Member Role Status Dates Dr. Win Matos MD Primary Care Provider, Referring Provider Active Dr. Ritesh Aguilar MD Attending Provider Active Team Status: Inactive Member Role Status Dates Dr. Win Matos MD Primary Care Provider Active Dr. Papi Thomas MD Attending Provider Active Team Status: Inactive Member Role Status Dates Dr. Win Matos MD Primary Care Provider Active Dr. George Myers MD Attending Provider, Emergency Provider Active Team Status: Inactive Member Role Status Dates Dr. Win Matos MD Primary Care Provider Active Dr. Ritesh Aguilar MD Attending Provider, Referring Pr ovider Active Team Status: Inactive Member Role Status Dates Dr. Win Matos MD Primary Care Provider Active Anil Ortez NP-C Attending Provider, Referring Provi ralph Active Team Status: Active Member Role Status Dates Dr. Win Matos MD Primary Care Provider Active Dr. Ritesh Aguilar MD Attending Provider Active Team Status: Inactive Member Role Status Dates Dr. Win Matos MD Primary Care Provider, Referring Provider Active Dr. Stiven Gunn DO Attending Provider Active Team Status: Inactive Member Role Status Dates Dr. Win Matos MD Primary Care Provider, Referring Provider Active Dr. Ashu Wilson MD Attending Provider Active Team Status: Active Member Role Status Dates Dr. Win Matos MD Primary Care Provider, Referring Provider Active Dr. Stiven Gunn DO Attending Provider, Other Provi ralph Active Team Status: Active Member Role Status Dates Dr. Win Matos MD Primary Care Provi ralph, Referring Provider Active Dr. Stiven Gunn DO Admit Provider, Other Provider Active Dr. Barbara Vernon MD Other Provider Active Dr. Monty Hernández DO Other Provider Active Dr. Leidy Salazar MD Other Provider Active Dr. Leidy Glover MD Other Provider Active Dr. Scarlet Skinner MD Other Provider Active Dr. America Thrasher MD Other Provider Active Dr. Bijal Robles , DO Other Provider Active Dr. Jose Alberto Muhammad , DO Other Provider Active Dr. Jose Alberto Parks MD Other Provider Active Del Vallejo MD Other Provider Active Dr. Tony Chino , DO Other Provider Active Dr. Joe Jacobson MD Other Provider Active Dr. Abisai Chiu MD Other Provider Active Dr. Star Nazario MD Other Provider Active Dr. Shereen Camp , DO Other Provider Active Dr. Jamil Perkins , DO Other Provider Active Dr. Malina Pelletier MD Other Provider Active Dr. Louis Gilbert MD Attending Provider, Other Provider Active Dr. Flo Perez MD Other Provider Active Dr. Lebron Malcolm MD Other Provider Active Dr. Amaya Dawn MD Other Provider Active Dr. Veit Heredia MD Other Provider Active oSnya Lombardo [employer], ST[employer] CLE[employer]ER-C Other Provider Active [employer] [facility] Other Provider Active Team Status: Active Member Role Status Dates Dr. Win Matos MD Primary Care Provi ralph, Referring Provider Active Dr. Stiven Gunn , DO Admit Provider, A ttending Provider, Other Provider Active Dr. Barbara Vernon MD Other Provider Active Dr. Monty Hernández , DO Other Provider Active Dr. Leidy Salazar MD Other Provider Active Dr. Leidy Glover MD Other Provider Active Dr. Scarlet Skinner MD Other Provider Active Dr. America Thrasher MD Other Provider Active Dr. Bijal Robles , DO Other Provider Active Dr. Jose Alberto Muhammad , DO Other Provider Active Dr. Jose Alberto Parks MD Other Provider Active Del Vallejo MD Other Provider Active Dr. Tony Chino , DO Other Provider Active Dr. Joe Jacobson MD Other Provider Active Dr. Abisai Chiu MD Other Provider Active Dr. Star Nazario MD Other Provider Active Dr. Shereen Camp , DO Other Provider Active Dr. Jamil Perkins , DO Other Provider Active Dr. Malina Pelletier MD Other Provider Active Dr. Louis Gilbert MD Other Provider Active Dr. Flo Perez MD Other Provider Active Dr. Lebron Malcolm MD Other Provider Active Dr. Amaya Dawn MD Other Provider Active Dr. Viet Heredia MD Other Provider Active Sonya Lombardo [employer], ST[employer] LIGHT CLEANER-C Other Provider Active [employer] Other Provider Active Team Status: Inactive Member Role Status Dates Dr. Win Matos MD Primary Care Provi ralph, Referring Provider Active Dr. Stiven Gunn , DO Admit Provider, Other Provider Active Dr. Barbara Vernon MD Other Provider Active Dr. Monty Hernández , DO Other Provider Active Dr. Leidy Salazar MD Other Provider Active Dr. Leidy Glover MD Other Provider Active Dr. Scarlet Skinner MD Other Provider Active Dr. America Thrasher MD Other Provider Active Dr. Bijal Robles , DO Other Provider Active Dr. Jose Alberto Muhammad , DO Other Provider Active Dr. Jose Alberto Parks MD Other Provider Active Del Vallejo MD Other Provider Active Dr. Tony Chino , DO Other Provider Active Dr. Joe Jacobson MD Other Provider Active Dr. Abisai Chiu MD Other Provider Active Dr. Star Nazario MD Other Provider Active Dr. Shereen Camp , DO Attending Provider, Other Provide r Active Dr. Jamil Perkins , DO Other Provider Active Dr. Malina Pelletier MD Other Provider Active Dr. Louis Gilbert MD Other Provider Active Dr. Flo Perez MD Other Provider Active Dr. Lebron Malcolm MD Other Provider Active Dr. Amaya Dawn MD Other Provider Active Dr. Viet Heredia MD Other Provider Active Sonya Lombardo [employer], ST[employer] LIGHT CLEANER-C Other Provider Active [employer] Other Provider Active Team Status: Inactive Member Role Status Dates Dr. Win Matos MD Primary Care Provider Active Dr. Keli Arauz MD Emergency Provider Active Team Status: Inactive Member Role Status Dates Dr. Win Matos MD Primary Care Provider Active Dr. Ritesh Aguilar MD Attending Provider Active Team Status: Inactive Member Role Status Dates Dr. Win Matos MD Primary Care Provider Active Dr. Keli Arauz MD Attending Provider, Emergency Provider Active Team Status: Active Member Role Status Dates Dr. Win Matos MD Primary Care Provider Active Team Status: Inactive Member Role Status Dates Dr. Win Matos MD Primary Care Provider Active Start: February 28, 2024 End: February 28, 2024 Dr. Kristin Mckay MD Attending Provider Active Start: February 28, 2024 End: February 28, 2024 Dr. Kristin Mckay MD Referring Provider Active Start: February 28, 2024 End: February 28, 2024 Team Status: Inactive Member Role Status Dates Dr. Win Matos MD Primary Care Provider Active Start: March 19, 2024 End: March 19, 2024 Dr. Win Matos MD Referring Provider Active Start: March 19, 2024 End: March 19, 2024 Dr. Chaitanya Leblanc MD Attending Provider Active Sta rt: March 19, 2024 End: March 19, 2024 Team Status: Inactive Member Role Status Dates Dr. Win Matos MD Primary Care Provider Active Start: April 29, 2024 End: April 29, 2024 Dr. Kristin Mckay MD Attending Provider Active Start: April 29, 2024 End: April 29, 2024 Dr. Kristin Mckay MD Referring Provider Active Start: April 29, 2024 End: April 29, 2024 Team Status: Inactive Member Role Status Dates Dr. Win Matos MD Primary Care Provider Active Start: May 17, 2024 End: May 17, 2024 Dr. Win Matos MD Attending Provider Active Start: May 17, 2024 End: May 17, 2024 Dr. Win Matos MD Referring Provider Active Start: May 17, 2024 End: May 17, 2024 Team Status: Inactive Member Role Status Dates Dr. Win Matos MD Primary Care Provider Active Start: May 28, 2024 End: May 28, 2024 Dr. Win Matos MD Referring Provider Active Start: May 28, 2024 End: May 28, 2024 Dr. Abisai Roman DO Attending Provider Active Start: May 28, 2024 End: May 28, 2024 Team Status: Inactive Member Role Status Dates Dr. Win Matos MD Primary Care Provider Active Start: June 11, 2024 End: June 11, 2024 Dr. Kristin Mckay MD Attending Provider Active Start: June 11, 2024 End: June 11, 2024 Dr. Kristin Mckay MD Referring Provider Active Start: June 11, 2024 End: June 11, 2024 Team Status: Inactive Member Role Status Dates Dr. Win Matos MD Primary Care Provider Active Start: July 06, 2024 End: July 06, 2024 Dr. Chaitanya Leblanc MD Attending Provider Active Sta rt: July 06, 2024 End: July 06, 2024 Dr. Chaitanya Leblanc MD Referring Provider Active Sta rt: July 06, 2024 End: July 06, 2024 Team Status: Inactive Member Role Status Dates Dr. Win Matos MD Primary Care Provider Active Start: July 14, 2024 End: July 14, 2024 Dr. Win Matos MD Attending Provider Active Start: July 14, 2024 End: July 14, 2024 Dr. Win Matos MD Referring Provider Active Start: July 14, 2024 End: July 14, 2024 Team Status: Inactive Member Role Status Dates Dr. Win Matos MD Primary Care Provider Active Start: September 02, 2024 End: September 02, 2024 Dr. Kristin Mckay MD Attending Provider Active Start: September 02, 2024 End: September 02, 2024 Dr. Kristin Mckay MD Referring Provider Active Start: September 02, 2024 End: September 02, 2024 Team Status: Inactive Member Role Status Dates Dr. Win Matos MD Primary Care Provider Active Start: September 30, 2024 End: September 30, 2024 Dr. Win Matos MD Referring Provider Active Start: September 30, 2024 End: September 30, 2024 Dr. Bar Isbell MD Attending Provider Active Start: September 30, 2024 End: September 30, 2024 Team Status: Active Member Role Status Dates Dr. Win Matos MD Primary Care Provider Active Start: September 30, 2024 Dr. Bar Isbell MD Attending Provider Active Start: September 30, 2024 Dr. Bar Isbell MD Referring Provider Active Start: September 30, 2024 Team Status: Active Member Role/Relationship Status Dates Dr. Win Matso MD Primary Care Provider Active Team Status: Inactive Member Role/Relationship Status Dates Dr. Win Matos MD Primary Care Provider Active Start: June 11, 2024 End: June 11, 2024 Dr. Kristin Mckay MD Attending Provider Active Start: June 11, 2024 End: June 11, 2024 Dr. Kristin Mckay MD Referring Provider Active Start: June 11, 2024 End: June 11, 2024 Team Status: Inactive Member Role/Relationship Status Dates Dr. Win Matos MD Primary Care Provider Active Start: July 06, 2024 End: July 06, 2024 Dr. Chaitanya Leblanc MD Attending Provider Active Sta rt: July 06, 2024 End: July 06, 2024 Dr. Chaitanya Leblanc MD Referring Provider Active Sta rt: July 06, 2024 End: July 06, 2024 Team Status: Inactive Member Role/Relationship Status Dates Dr. Win Matos MD Primary Care Provider Active Start: July 14, 2024 End: July 14, 2024 Dr. Win Matos MD Attending Provider Active Start: July 14, 2024 End: July 14, 2024 Dr. Win Matos MD Referring Provider Active Start: July 14, 2024 End: July 14, 2024 Team Status: Inactive Member Role/Relationship Status Dates Dr. Win Matos MD Primary Care Provider Active Start: September 02, 2024 End: September 02, 2024 Dr. Kristin Mckay MD Attending Provider Active Start: September 02, 2024 End: September 02, 2024 Dr. Kristin Mckay MD Referring Provider Active Start: September 02, 2024 End: September 02, 2024 Team Status: Inactive Member Role/Relationship Status Dates Dr. Win Matos MD Primary Care Provider Active Start: September 30, 2024 End: September 30, 2024 Dr. Win Matos MD Referring Provider Active Start: September 30, 2024 End: September 30, 2024 Dr. Bar Isbell MD Attending Provider Active Start: September 30, 2024 End: September 30, 2024 Team Status: Active Member Role/Relationship Status Dates Dr. Win Matos MD Primary Care Provider Active Start: September 30, 2024 Dr. Bar Isbell MD Attending Provider Active Start: September 30, 2024 Dr. Bar Isbell MD Referring Provider Active Start: September 30, 2024 Team Status: Inactive Member Role/Relationship Status Dates Dr. Win Matos MD Primary Care Provider Active Start: October 04, 2024 End: October 04, 2024 Dr. Win Matos MD Referring Provider Active Start: October 04, 2024 End: October 04, 2024 Dr. Abisai Roman DO Attending Provider Active Start: October 04, 2024 End: October 04, 2024 Team Status: Active Member Role/Relationship Status Dates Dr. Win Matos MD Primary Care Provider Active Start: October 05, 2024 Dr. Win Matos MD Other Provider Active Star t: October 05, 2024 Dr. Javi Lenz MD Attending Provider Activ e Start: October 05, 2024 Dr. Javi Lenz MD Referring Provider Activ e Start: October 05, 2024 Team Status: Inactive Member Role/Relationship Status Dates Dr. Win Matos MD Primary Care Provider Active Start: October 06, 2024 End: October 06, 2024 Dr. Win Matos MD Referring Provider Active Start: October 06, 2024 End: October 06, 2024 Dr. Bar Isbell MD Attending Provider Active Start: October 06, 2024 End: October 06, 2024 Team Status: Inactive Member Role/Relationship Status Dates Dr. Win Matos MD Primary Care Provider Active Start: October 05, 2024 End: October 05, 2024 Dr. Win Matos MD Other Provider Active Star t: October 05, 2024 End: October 05, 2024 Dr. Javi Lenz MD Attending Provider Activ e Start: October 05, 2024 End: October 05, 2024 Dr. Javi Lenz MD Referring Provider Activ e Start: October 05, 2024 End: October 05, 2024 Source Comments (unrecognize d section and content) In the event this informatio n is protected by the Federal Confidentiality of Alcohol and Drug Abuse Patient Records regulations: The Federal rules restrict any use of the information to criminally investigate or prosecute any alcohol or drug abuse patient.[facility] Reason for Visit (unrecogniz ed section and content) Reason Onset Date Comments Refill Request 07/29/2023 FOR RECORDS PERTAINING TO PATIENTS WHO ARE [...] BE BASED ON THE PRIMARY CLINICAL RECORDS. [facility]. provides no warranty or guarantee of the accuracy or completeness of information in this document.
--- NOTE | 2024-10-08 09:35 | CT_ITS ---
PROCEDURE: ABDOMEN/PELVIS WITHOUT CONT 10/08/2024 REASON FOR EXAM: PAIN TECHNIQUE: ABDOMEN/PELVIS WITHOUT CONT Noncontrast technique limits evaluation of the abdominal and pelvic viscera. Coronal and Sagittal reconstruction series were provided. One or more dose reduction techniques were used (e.g., Automated exposure control, adjustment of the mA and/or kV according to patient size, use of iterative reconstruction technique). RADIATION DOSE SUMMARY: CTDlvol: 22.65 mGy DLP: 1273.10 mGycm COMPARISON: 01/29/2022 FINDINGS: Lung bases: Mild dependent atelectasis Liver: Normal size. No obvious mass. Gallbladder: Unremarkable Spleen: Normal size. Pancreas: Normal size. No surrounding inflammation. Adrenals: Unremarkable Kidneys: No obstructive uropathy, or suspicious solid renal lesion, there is a nonobstructing 2 mm stone in the right kidney. Bladder: Unremarkable Reproductive Organs: Likely surgically absent Bowel: No evidence of ileus or obstruction. No CT evidence of an acute inflammatory process. Retained stool noted in the colon. Hyperdensity in the cecum likely represents ingested medication. Appendix: Normal appendix seen on coronal recon images 70 through 77. No free intraperitoneal fluid, air, or suspicious adenopathy, IVC and aorta are unremarkable Bones: Bony structures show degenerative change CT/Abdomen/Pelvis without Cont IMPRESSION: No suspicious solid organ abnormality, nonobstructing right nephrolithiasis No free intraperitoneal fluid, air, or suspicious adenopathy, normal appendix v isualized Degenerative bony changes Reading Location: [id number]
[2024-10-08] MEDS: 0.9% Normal Saline (1000mL) 1,000 ML 999 ML IV (09:46)
[2024-10-08 09:47] LABS: Hematocrit 35.9 % (37-47); Hemoglobin 11.6 g/dL (12.0-15.0); Immature Granulocytes Count 0.110 X10^3/uL (0.0-0.0); Mean Corp Hgb Conc 32.3 g/dL (32-36); Mean Corpuscular Volume 87.1 fL (81-99); Mean Platelet Vol. 10.6 fl (6.2-12.0); NRBC Flagged by Analyzer 0 % (0-5); Platelet Count 244 K/mm3 (150-450); RBC Distribution Width CV 13.1 % (11.6-14.6); RBC Distribution Width SD 40.5 fl (35.1-43.9); Red Blood Count 4.12 M/mm3 (4.2-5.4); White Blood Count 9.2 K/mm3 (4.4-11.0)
[2024-10-08 09:52] LABS: Color, Urine Yellow (Yellow); Glucose, Dipstick Normal (Normal); Ketone-Dipstick Negative (Negative); Leukocyte Esterase-Dipstick 100 /ul (Negative); Mucous, Urine 0 SEEN /hpf (<or=2+); Nitrite-Dipstick Negative (Negative); Occult Blood-Urine Negative /ul (Negative); Protein-Dipstick Negative (Negative); Red Blood Cells-Urine 0 SEEN /hpf (0-5); Specific Gravity, Urine 1.015 (1.002-1.030); Urine Bilirubin Dipstick Negative (Negative)
[2024-10-08 10:06] LABS: Squamous Epithelial Cells - UA 0-5 SEEN /hpf (5-10)
[2024-10-08 10:22] LABS: AST(SGOT) 16 U/L (<=31); Alanine Aminotransfer ALT/SGPT 17 U/L (<=34); Albumin, Serum 3.9 g/dL (3.4-4.8); Alkaline Phosphatase 60 U/L (35-104); Anion Gap 12 (5-15); BUN 32 mg/dL (4-19); BUN/Creat Ratio 34.1 RATIO (10-20); Calcium,Total 9.0 mg/dL (7.6-11.0); Carbon Dioxide 23.2 mmol/L (21.0-32.0); Chloride 104 mmol/L (98-108); Estimated Creatinine Clearance 73.06 ml/min (50-250); Globulin 2.6 g/dL (2.2-4.2); Glucose 191 mg/dL (70-99); Lipase 35 U/L (13-75); Potassium 3.7 mmol/L (3.3-5.1)
[2024-10-08 10:46] VITALS: BP 140/84; PULSE 53; RESP 15; O2SAT 98
[2024-10-08 12:06] VITALS: BP 132/89; PULSE 55; RESP 18; TEMP 37.1; O2SAT 95
== END 2024-10-08 12:13 | disposition home or self-care (01) ==
PROVIDERS: Emergency Provider Emergency Medicine; PCP Family Medicine Geriatric Medicine; Visit Provider Emergency Medicine
DX: R10.9 Unspecified abdominal pain (principal); I10 Essential (primary) hypertension; R35.0 Frequency of micturition; K21.9 Gastro-esophageal reflux disease without esophagitis; D64.9 Anemia, unspecified
CPT/HCPCS: 74176; 80053; 81001; 83690; 85025; 96361; 96374; 96375; 99284; A4216; J2405

== ENCOUNTER → 2024-11-19 | Outpatient (CLI) | payer BC, SELFPAY ==
[2024-11-19 10:41] LABS: Potassium 4.1 mmol/L (3.3-5.1)
== END | disposition home or self-care (01) ==
LOC: MTLAB 08:56
PROVIDERS: PCP Family Medicine Geriatric Medicine; Referring Provider Internal Medicine; Visit Provider Internal Medicine
DX: E87.6 Hypokalemia (principal)
CPT/HCPCS: 36415; 84132

== ENCOUNTER → 2024-11-22 | Outpatient (CLI) | payer BC, SELFPAY ==
--- NOTE | 2024-11-22 11:38 | EKG12_ITS ---
Test Reason : PREOP Blood Pressure : */* mmHG Vent. Rate : 67 BPM Atrial Rate : 67 BPM P-R Int : 174 ms QRS Dur : 84 ms QT Int : 422 ms P-R-T Axes : 8 -17 -3 degrees QTcB Int : 445 ms Normal sinus rhythm Cannot rule out Anterior infarct , age undetermined Abnormal ECG Confirmed by IRAIS RAM, BAKARI ([id number]), assistant editor JAX LENZ ([id number]) on 11/23/2024 6:08:41 AM Referred By: Javi Lenz Confirmed By: BAKARI BRAXTON MD
[2024-11-22 11:55] LABS: Hematocrit 38.1 % (37-47); Hemoglobin 12.3 g/dL (12.0-15.0); Mean Corp Hgb Conc 32.3 g/dL (32-36); Mean Corpuscular Volume 88.6 fL (81-99); Mean Platelet Vol. 10.0 fl (6.2-12.0); Platelet Count 271 K/mm3 (150-450); RBC Distribution Width CV 14.7 % (11.6-14.6); RBC Distribution Width SD 46.8 fl (35.1-43.9); Red Blood Count 4.30 M/mm3 (4.2-5.4); White Blood Count 7.7 K/mm3 (4.4-11.0)
[2024-11-22 12:41] LABS: Anion Gap 10 (5-15); BUN 23 mg/dL (4-19); BUN/Creat Ratio 23.3 RATIO (10-20); Calcium,Total 9.6 mg/dL (7.6-11.0); Carbon Dioxide 27.9 mmol/L (21.0-32.0); Chloride 103 mmol/L (98-108); Glucose 123 mg/dL (70-99); Potassium 4.3 mmol/L (3.3-5.1)
== END | disposition home or self-care (01) ==
LOC: PSN 11:25
PROVIDERS: PCP Internal Medicine; Referring Provider Otolaryngology; Visit Provider Otolaryngology
DX: Z01.818 Encounter for other preprocedural examination (principal)
CPT/HCPCS: 36415; 80048; 85027; 93005

== ENCOUNTER 2024-11-30 15:33 | Outpatient (CLI) | payer BC, SELFPAY ==
--- NOTE | 2024-11-30 10:50 | MASS_PTH ---
PATIENT: ELIZABETH MACKENZIE [id number] AGE/SX: 64/F ROOM: RE11/30/[address]: Dr. Javi Lenz MD : 1960 BED: DIS: 11/30/2024 SPEC #: [id number] RECD: 11/30/24 15:43 STATUS: ERVIN REDeja #: [id number] JACKELINE: 11/30/24 10:[address]: Javi Lenz DEPT: SURGICAL PATHOLOGY RECD BY: Yazan Llanos ENTERED: 12/01/24 10:52 SP TYPE: Mass OTHR DR: Dr. Barbara Vernon MD Tissues: A - Ethmoid sinus, NOS Procedures: Surgery Specimen Level IV HEADER OPERATION: Bilateral myringotomy with tubes, bilateral, excision of sinus cyst PRE-OP DIAGNOSIS: Other specified disorders of Eustachian tube, bilateral, other chronic sinusitis, acute serous otitis media, right ear TISSUE SUBMITTED: A- Sinus content, nasopharyngeal mass MICROSCOPIC DIAGNOSIS A. Latasha content, bilateral, cyst/nasopharyngeal mass, excision: Sinonasal mucosa with marked chronic inflammation. Fragment of benign fibroadipose tissue. No evidence of neoplasia is seen in these sections. MICROSCOPIC DESCRIPTION Slides are reviewed. GROSS DESCRIPTION A. Received in formalin labeled with the patient's name and date of . Designated as nasopharyngeal mass is a 2.3 x 0.8 x 0.3 cm aggregate of mucoid material and smiley-pink tissue fragments. Entirely submitted in 1 cassette. NC 12/01/2024 CPT:55344
== END 2024-11-30 23:59 | disposition home or self-care (01) ==
LOC: LABSPEC 15:36
PROVIDERS: PCP Internal Medicine; Referring Provider Otolaryngology; Visit Provider Otolaryngology
DX: J32.9 Chronic sinusitis, unspecified (principal); H69.93 Unspecified Eustachian tube disorder, bilateral; H65.01 Acute serous otitis media, right ear
CPT/HCPCS: 88305

== ENCOUNTER → 2024-12-10 | Outpatient (CLI) | payer BC, SELFPAY ==
[2024-12-10 13:02] LABS: Hematocrit 39.5 % (37-47); Hemoglobin 12.9 g/dL (12.0-15.0); Immature Granulocytes Count 0.030 X10^3/uL (0.0-0.0); Mean Corp Hgb Conc 32.7 g/dL (32-36); Mean Corpuscular Volume 87.8 fL (81-99); Mean Platelet Vol. 10.7 fl (6.2-12.0); NRBC Flagged by Analyzer 0 % (0-5); Platelet Count 255 K/mm3 (150-450); RBC Distribution Width CV 14.1 % (11.6-14.6); RBC Distribution Width SD 45.6 fl (35.1-43.9); Red Blood Count 4.50 M/mm3 (4.2-5.4); White Blood Count 7.5 K/mm3 (4.4-11.0)
[2024-12-10 13:23] LABS: AST(SGOT) 14 U/L (<=31); Alanine Aminotransfer ALT/SGPT 13 U/L (<=34); Albumin, Serum 4.0 g/dL (3.4-4.8); Alkaline Phosphatase 66 U/L (35-104); Anion Gap 12 (5-15); BUN 23 mg/dL (4-19); BUN/Creat Ratio 23.4 RATIO (10-20); Calcium,Total 9.5 mg/dL (7.6-11.0); Carbon Dioxide 24.8 mmol/L (21.0-32.0); Chloride 103 mmol/L (98-108); Globulin 2.9 g/dL (2.2-4.2); Glucose 104 mg/dL (70-99); Potassium 3.9 mmol/L (3.3-5.1)
== END | disposition home or self-care (01) ==
LOC: MTLAB 09:35
PROVIDERS: PCP Internal Medicine; Referring Provider Internal Medicine Rheumatology; Visit Provider Internal Medicine Rheumatology
DX: M06.4 Inflammatory polyarthropathy (principal); Z79.899 Other long term (current) drug therapy
CPT/HCPCS: 36415; 80053; 85025

== ENCOUNTER → 2025-03-07 | Outpatient (CLI) | payer BC, SELFPAY ==
[2025-03-07 15:04] LABS: Hematocrit 37.1 % (37-47); Hemoglobin 12.3 g/dL (12.0-15.0); Immature Granulocytes Count 0.010 X10^3/uL (0.0-0.0); Mean Corp Hgb Conc 33.2 g/dL (32-36); Mean Corpuscular Volume 87.5 fL (81-99); Mean Platelet Vol. 9.9 fl (6.2-12.0); NRBC Flagged by Analyzer 0 % (0-5); Platelet Count 275 K/mm3 (150-450); RBC Distribution Width CV 14.1 % (11.6-14.6); RBC Distribution Width SD 44.9 fl (35.1-43.9); Red Blood Count 4.24 M/mm3 (4.2-5.4); White Blood Count 5.1 K/mm3 (4.4-11.0)
[2025-03-07 15:31] LABS: AST(SGOT) 20 U/L (<=31); Alanine Aminotransfer ALT/SGPT 19 U/L (<=34); Albumin, Serum 4.2 g/dL (3.4-4.8); Alkaline Phosphatase 57 U/L (35-104); Anion Gap 10 (5-15); BUN 26 mg/dL (4-19); BUN/Creat Ratio 23.7 RATIO (10-20); Calcium,Total 9.7 mg/dL (7.6-11.0); Carbon Dioxide 27.9 mmol/L (21.0-32.0); Chloride 103 mmol/L (98-108); Globulin 2.7 g/dL (2.2-4.2); Glucose 93 mg/dL (70-99); Potassium 3.8 mmol/L (3.3-5.1)
--- OUTSIDE RECORDS SUMMARY | 2025-03-07 19:11 | XMS RPT_ITS | CCD ---
Author Organization [facility] Care Team Providers Care Aging Room Operator Name Role Phone RADHA MATOS Referring Unavailable RADHA MATOS Primary Care Unavailable HOWARD ESPARZA Attending Unavailable Dr. Win Matos Chi Primary Care Provider Carlo, Dr. Win Nieves Referring Provider 1([facility])[phone] Chaitanya Leblanc Attending Provider 1([facility])[phone] ANIL ORTEZ Attending Unavailable Dr. Ritesh Aguilar Attending Provider 1([facility])[phone] Papi Thomas Attending Provider 1([facility])-[phone] Win Matos Chi Primary Care Provider 1([facility])[phone] Carlo, Dr. Wni Nieves Referring Provider Dr. Chaitanya Leblanc Attending Provider Dr. Ritesh Aguilar Attending Provider 1([facility])[phone] Papi Thomas Attending Provider 1([facility])[phone] Stiven Gunn Attending Provider Dr. Ashu Wilson Attending Provider 1([facility])[phone] Dr. Stiven Gunn Other Provider 1([facility])[phone] Stiven Gunn Admit Provider Dr. Barbara Vernon Other Provider Dr. Monty Hernández Other Provider [phone] Leidy Salazar Other Provider Dr. Leidy [...] Other Provider Dr. Jamil Perkins Other Provider Dr. Malina Pelletier Other Provider Dr. Louis Gilbert Attending Provider Dr. Louis Gilbert Other Provider Dr. Flo Perez Other Provider Dr. Lebron Malcolm Other Provider Dr. Amaya Dawn Other Provider Dr. Viet Heredia Other Provider Grupo JACKHAMMER SPLITTER OPERATOR, JACKHAMMER SPLITTER OPERATOR-C Sonya Other Provider Ronal ROCK, Neo Peace Other Provider Unavailable Dr. Win Matos Chi Primary Care Provider Dr. Win Matos Chi Referring Provider Unavailable Primary Care Provider Dr. Win Klein MD, Chi Primary Care Provider [phone] Dr. Kristin Mckay MD Attending Provider Dr. Kristin Mckay MD Referring Provider Carlo RAM, Dr. Win Nieves Referring Provider Dr. Chaitanya Leblanc MD Attending Provider Carlo RAM, Dr. Win Nieves Attending Provider Dr. Abisai Roman DO Attending Provider Carlo RAM, Dr. Win Nieves Primary Care Provider 1([facility] )[phone] Nely RAM, Dr. Foster Attending Provider Nely RAM, Dr. Foster Referring Provider King YO, Dr. Tavares Referring Provider Carlo RAM, Dr. Win Nieves Primary Care Provider [phone] Carlo RAM, Dr. Win Nieves Referring Provider King YO, Dr. Tavares Attending Provider Carlo RAM, Dr. Win Nieves Primary Care Provider Nely RAM, Dr. Foster Attending Provider Nely RAM, Dr. Foster Referring Provider Carlo RAM, Dr. Win Nieves Primary Care Provider [phone] Carlo RAM, Dr. Win Nieves Attending Provider Carlo RAM, Dr. Win Nieves Referring Provider Akilah RAM, Dr. Dinero Attending Provider Akilah RAM, Dr. Dinero Referring Provider Dr. Abisai Roman DO Attending Provider Carlo RAM, Dr. Win Nieves Other Provider Delfin RAM, Dr. Caldwell Attending Provider Delfin RAM, Dr. Caldwell Referring Provider Dr. Tony Quintana DO Emergency Provider [phone] Carlo RAM, Dr. Win Nieves Primary Care Provider [phone] Nely RAM, Dr. Foster Attending Provider Nely RAM, Dr. Foster Referring Provider Lilian RICHARD, Dr. Jimenez Attending Provider [phone] Saulo RAM, Dr. Jimenez Attending Provider Carlo RAM, Dr. Win Nieves Primary Care Provider [phone] Carlo RAM, Dr. Win Nieves Referring Provider Saulo RAM, Dr. Jimenez Referring Provider Saulo RAM, Dr. Jimenez Primary Care Provider Martha RAM, Dr. Turpin Attending Provider Carlo RAM, Dr. Win Nieves Primary Care Physician Akilah RAM, Dr. Dinero Attending Physician Jessie RICHARD, Dr. Barone Attending Physician Carlo RAM, Dr. Win Nieves Nurse Practitioner Delfin RAM, Dr. Caldwell Attending Physician Lilian RICHARD, Dr. Jimenez Attending Physician Lilian RICHARD, Dr. Jimenez Emergency Department Physi kelsey Saulo RAM, Dr. Jimenez Attending Physician Saulo RAM, Dr. Jimenez Primary Care Physician [phone] Martha RAM, Dr. Turpin Attending Physician Nely RAM, Dr. Foster Attending Physician Nely RAM, Dr. Foster Referring Provider Carlo, Win Chi Primary Care Unavailable Vellanki, Kristin Referring Unavailable Vellanki, Kristin Attending Unavailable Carlo, Win Chi Primary Care Unavailable Benji, Chaitanya Attending Unavailable Benji, Chaitanya Referring Unavailable Russell, Barbara Attending Unavailable Carlo, Win Chi Referring Unavailable Carlo, Win Chi Primary Care Unavailable Saulo, Barbara Referring Unavailable Saulo, Barbara Primary Care Unavailable Abisai Roman Attending Unavailable Carlo, Win Chi Referring Unavailable Benji, Chaitanya Attending Unavailable Carlo, Win Chi Primary Care Unavailable Carlo, Win Chi Referring Unavailable Abisai Roman Attending Unavailable Carlo, Win Chi Primary Care Unavailable Saulo, Barbara Attending Unavailable Russell, Barbara Primary Care Unavailable Carlo, Win Chi Referring Unavailable Vellanki, Kristin Referring Unavailable Vellanki, Kristin Attending Unavailable Carlo, Win Chi Primary Care Unavailable Abisai Roman Attending Unavailable Carlo, Win Chi Referring Unavailable Carlo, Win Chi Primary Care Unavailable Carlo, Win Chi Primary Care Unavailable Abisai Roman Attending Unavailable Carlo, Win Chi Referring Unavailable Carlo, Win Chi Referring Unavailable Carlo, Win Chi Primary Care Unavailable Bar Isbell Attending Unavailable Carlo, Win Chi Primary Care Unavailable Abisai Roman Attending Unavailable Carlo, Win Chi Referring Unavailable Carlo, Win Chi Primary Care Unavailable ErasmokarusMonroeour Attending Unavailable Carlo, Win Chi Referring Unavailable Wartmann, Christopher Referring Unavailabl e Russell, Barbara Primary Care Unavailable Papi Thomas Attending Unavailable Vellanki, Kristin Referring Unavailable Vellanki, Kristin Attending Unavailable Carlo, Win Chi Primary Care Unavailable Carlo, Win Chi Referring Unavailable Carlo, Win Chi Primary Care Unavailable Carlo, Win Chi Attending Unavailable Vellanki, Kristin Attending Unavailable Vellanki, Kristin Referring Unavailable Saulo, Barbara Primary Care Unavailable Carlo, Win Chi Referring Unavailable Carlo, Win Chi Primary Care Unavailable Carlo, Win Chi Attending Unavailable Vellanki, Kristin Referring Unavailable Vellanki, Kristin Attending Unavailable Carlo, Win Chi Primary Care Unavailable Carlo, Win Chi Referring Unavailable Carlo, Win Chi Primary Care Unavailable Abisai Roman Attending Unavailable Carlo, Win Chi Primary Care Unavailable Vellanki, Kristin Referring Unavailable Vellanki, Kristin Attending Unavailable Tony Quintana Attending Unavailable Carlo, Win Chi Primary Care Unavailable Carlo, Win Chi Referring Unavailable Carlo, Win Chi Primary Care Unavailable Carlo, Win Chi Attending Unavailable Carlo, Win Chi Primary Care Unavailable Bar Isbell Attending Unavailable Erasmokarus, Mansour Referring Unavailable Javi Lenz Attending Unavailabl e Wartmann, Christopher Referring Unavailabl e Russell, Barbara Primary Care Unavailable Wariftikharann, Eastonopher Attending Unavailabl e Wartmann, Christopher Referring Unavailabl e Russell, Barbara Primary Care Unavailable Russell, Barbara Attending Unavailable Russell, Barbara Referring Unavailable Carlo, Win Chi Primary Care Unavailable Carlo, Win Chi Primary Care Unavailable Easton Lenzopher Attending Unavailabl e Wartmann, Christopher Referring Unavailabl e Carlo, Win Chi Consulting Unavailable Allergies Allergy Classification Reported Allergen(s) Allergy Type Date of Onset Reaction(s) Facility (20 sources) Latex Allergy to substance 02-01-2021 [facility] (1 source) Latex Drug allergy (disorder) 01-07-2025 [facility] Repository Medications Current Medications Medication Drug Class(es) Dates Sig (Normalized) Sig (Original) clobetasol propionate 0.5 mg/ml topical cream (1 source) Corticosteroid Start: 03-04-2017 clobetasol (TEMOVATE) 0.05 % cream Apply topically daily prn for flare ups 0 03/04/2017 Active diclofenac sodium 0.01 mg/mg topical gel (1 source) Nonsteroidal Anti-inflammatory Drug diclofenac (VOLTAREN) 1 % topical gel Apply 2 g to affected area. 0 Active DULoxetine 30 mg delayed release oral capsule (1 source) Serotonin and Norepinephrine Reuptake Inhibitor Start: 01-07-2025 take 1 capsule by mouth at bedtime Duloxetine 30 mg capsule,delayed release(DR/EC) Active 30 mg PO AT BEDTIME January 07, 2025 12:00am Complies with drug therapy estradiol 0.1 mg/ml vaginal cream (2 sources) [...] Active folic acid 1 mg oral tablet (18 sources) Start: 03-19-2024 take 2 tablets by mouth once daily Folic Acid 1 mg tablet Active 2 mg PO daily March 19, 2024 1:00am Complies with drug therapy hydroCHLOROthiazide 12.5 mg / valsartan 320 mg oral tablet (20 sources) Thiazide Diuretic, Angiotensin 2 Receptor Warren Start: 02-10-2023 take 1 tablet by mouth once Valsartan-hydroCH LOROthiazide 320-12.5 mg per tablet Take 1 tablet by mouth every afternoon. 0 02/10/2023 Active Start: 03-11-2018 Valsartan-Hydr ochlorothiazide 1 EACH tablet Active 1 NMA PO DAILY March 11, 2018 1:00am Complies with drug therapy Start: 03-11-2018 Valsartan-Hydr ochlorothiazide Active 1 EACH PO DAILY March 11, 2018 1:00am leucovorin 15 mg oral tablet (18 sources) Folate Analog Start: 03-19-2024 take 1 tablet by mouth every week Leucovorin Calcium 15 mg tablet Active 15 mg PO EVERY WEEK March 19, 2024 1:00am Complies with drug therapy levothyroxine sodium 0.112 mg oral tablet (20 sources) l-Thyroxine Start: 01-05-2025 take 1 tablet by mouth once daily Levothyroxine (Unithroid) 112 mcg tablet Active 112 ug PO daily 90 January 05, 2025 12:00am Postoperative primary hypothyroidism Postprocedural hypothyroidism Complies with drug therapy Start: 09-30-2024 End: 01-05-2025 Levothyroxine 112 mcg tablet Discontinued 125 ug PO daily September 30, 2024 9:02am January 05, 2025 10:29am Start: 03-19-2024 End: 09-30-2024 take 1 tablet [...] 09/27/2015 Active methotrexate 2.5 mg oral tablet (20 sources) Folate Analog Metabolic Inhibitor Start: 09-30-2024 Methotrexate Sodium 2.5 mg tablet Active 25 mg PO EVERY WEEK September 30, 2024 9:02am Complies with drug therapy Start: 03-19-2024 End: 09-30-2024 Methotrexate Sodium 2.5 [...] mouth every 12 hours. 0 04/17/2023 Active [place]-3 Fatty Acids (Fish Oil Concentrate) 1,000 mg capsule (20 sources) Start: 02-01-2021 take 1 capsule by mouth once daily [place]-3 Fatty Acids (Fish Oil Concentrate) 1,000 mg capsule Active 1000 MG PO DAILY February 01, 2021 4:04pm Start: 02-01-2021 End: 06-13-2023 take 1 capsule by mouth once daily [place]-3 Fatty Acids (Fish Oil Concentrate) 1,000 mg capsule Discontinued 1000 mg PO DAILY February 01, 2021 12:00am June 13, 2023 10:46am Start: 02-01-2021 End: 06-13-2023 take 1 capsule by mouth once daily [place]-3 Fatty Acids (Fish Oil Concentrate) 1,000 mg capsule Discontinued 1000 MG PO DAILY February 01, 2021 12:00am June 13, 2023 10:46am Start: 02-01-2021 take 1 capsule by mo [facility] once daily [place]-3 Fatty Acids (Fish Oil Concentrate) 1,000 mg capsule Active 1000 MG PO DAILY January 31, 2021 11:00pm Start: 02-01-2021 take 1 capsule by mo [facility] once daily [place]-3 Fatty Acids (Fish Oil Concentrate) 1,000 mg capsule Active 1000 MG PO DAILY February 01, 2021 12:00am Start: 2018 End: 11-12-2018 take 1 capsule by mouth once daily [place]-3 Fatty Acids (Fish Oil Concentrate) 1,000 mg capsule Discontinued 1000 MG PO DAILY 2018 4:55pm November 12, 2018 4:02pm Start: 2018 End: 11-12-2018 take 1 capsule by mouth once daily [place]-3 Fatty Acids (Fish Oil Concentrate) 1,000 mg capsule Discontinued 1000 mg PO DAILY 2018 1:00am November 12, 2018 4:02pm Start: 2018 End: 11-12-2018 take 1 capsule by mouth once daily [place]-3 Fatty Acids (Fish Oil Concentrate) 1,000 mg capsule Discontinued 1000 MG PO DAILY 2018 12:00am November 12, 2018 3:02pm Start: 2018 End: 11-12-2018 take 1 capsule by mouth once daily [place]-3 Fatty Acids (Fish Oil Concentrate) 1,000 mg [...] 05, 2018 1:00am June 07, 2019 5:11pm predniSONE 10 mg oral tablet (20 sources) Start: 12-13-2024 take 1 tablet by mouth once daily as needed Prednisone 10 mg tablet Active 10 mg PO As Directed as needed December 13, 2024 12:00am see taper instructions takes daily for 3 days as needed. Complies with drug therapy Start: 03-19-2024 End: 10-18-2024 take 1 tablet by mouth once daily as needed Prednisone 10 mg tablet Discontinued 10 mg PO daily as needed March 19, 2024 1:00am October 18, 2024 10:49am Start: 04-17-2023 predniSONE (DE LTASONE) 10 mg tablet take 3 tablets daily for 2 days then 2 tablets for 2 days then 1 tablet for 2 days then STOP 0 04/17/2023 Active Start: 04-10-2023 End: 06-24-2023 take 3 tablets by mouth once daily Prednisone 20 mg tablet Discontinued 60 mg PO DAILY 15 April 10, 2023 1:00am June 24, 2023 10:03am Start: 04-10-2023 End: 06-24-2023 take 60 mg by mouth once daily Prednisone Discontinued 60 MG PO DAILY April 10, 2023 1:00am June 24, 2023 10:03am pregabalin 75 mg oral capsule (20 sources) Start: 01-07-2025 take 1 capsule by mouth twice daily Pregabalin 75 mg capsule Active 75 mg PO TWICE A DAY January 07, 2025 9:20am Complies with drug therapy Start: 03-19-2024 End: 01-07-2025 take 1 capsule by mouth three times daily Pregabalin 75 mg capsule Discontinued 75 mg PO THREE TIMES A DAY March 19, 2024 1:00am January 07, 2025 9:20am Start: 04-17-20[address] [facility] every twelve hours pregabalin (LYRICA) 75 mg capsule Take 1 capsule by mouth every 12 hours. 0 04/17/2023 Active VIT/IRON FUMARATE/FA ( ORAL) (1 source) VIT/IRO N FUMARATE/FA ( ORAL) Take by mouth once daily. 0 Active traMADol hydrochloride 50 mg oral tablet (18 sources) Opioid Agonist Start: 03-19-2024 take 1 tablet by mouth three times daily as needed Tramadol 50 mg tablet Active 50 mg PO THREE TIMES A DAY as needed March 19, 2024 1:00am Complies with drug therapy Turmeric extract (1 source) Start: 01-07-2025 take 1 capsule by mouth once daily Turmeric 400 mg capsule Active 800 mg PO daily January 07, 2025 12:00am Complies with drug therapy Completed/Discontinued Medications Medication Drug Class(es) Dates Sig [...] oral tablet (20 sources) Opioid Agonist Start: 10-08-2024 End: 12-13-2024 Hydrocodone-Acetaminophen 5- 325 mg tablet Discontinued 1 {tbl} PO EVERY 6 HOURS NEEDED as needed for Pain 10 3 0 October 08, 2024 December 13, 2024 11:14am Right flank pain Unspecified abdominal pain Start: 01-29-2022 End: 05-01-2023 Hydrocodone-Acetaminophen 5- 325 [...] 6 HOURS NEEDED 10 3 April 10, 2023 May 01, 2023 3:49pm acetaminophen 325 mg / oxyCODONE hydrochloride 5 mg oral tablet (20 sources) Opioid Agonist Start: 07-15-2023 End: 07-22-2023 [...] bisacodyl 5 mg delayed release oral tablet (20 sources) Stimulant Laxative Start: 07-19-2023 End: 07-22-2023 take 1 tablet by mouth twice daily as needed for constipation Bisacodyl (Dulcolax (Bisacodyl)) 5 mg tablet,delayed release (DR/EC) Discontinued 5 mg PO TWICE A DAY as needed for constipation 6 3 0 July 19, 2023 12:00am July 21, 2023 12:00am July 22, 2023 12:07am busPIRone hydrochloride 5 mg oral tablet (7 sources) Start: 10-18-2024 End: 12-13-2024 take 1 tablet by mouth twice daily Buspirone 5 mg tablet Discontinued 5 mg PO TWICE A DAY 60 1 October 18, 2024 12:00am December 13, 2024 11:13am calcium carbonate 1500 mg oral tablet (20 sources) Start: 02-01-2021 End: 04-17-2023 take 1 tablet by mouth once daily Calcium Carbonate (Calcium 600) 600 mg calcium (1,500 mg) tablet Discontinued 600 mg PO DAILY February 01, 2021 12:00am April 17, 2023 9:07am celecoxib 200 mg oral capsule (15 sources) Nonsteroidal Anti-inflammatory Drug Start: 09-01-2024 End: 10-18-2024 take 1 capsule by mouth twice daily Celecoxib (Celebrex) 200 mg capsule Discontinued 200 mg PO TWICE A DAY 30 0 September 01, 2024 12:00am October 18, 2024 11:10am Do not take in conjunction with methotrexate without discussing with country sales manager. [place] 7-Bvk-Asf-Fish Oil (20 sources) Start: 12-13-2024 End: 01-07-2025 [place] 6-Zgv-Kpl-Fish Oil (Fish Oil) 300-1,000 mg capsule Discontinued 2 NMA PO daily December 13, 2024 12:00am January 07, 2025 9:20am Start: 12-13-2024 [place] 3-Dha-Ep a-Fish Oil (Fish Oil) 300-1,000 mg capsule Active 2 NMA PO daily December 13, 2024 12:00am Start: 07-14-2023 End: 08-29-2023 [place] 5-Wul-Tli-Fish Oil (Fi sh Oil) 300-1,000 mg capsule Discontinued 1 NMA PO DAILY July 14, 2023 12:00am August 29, 2023 10:54am Start: 07-14-2023 take 300-1000 mg by mouth once daily [place] 4-Sys-Kke-Fish Oil (Fish Oil) 300-1,000 mg capsule Active [...] 2019 1:11pm ibuprofen 600 mg oral tablet (20 sources) Nonsteroidal Anti-inflammatory Drug Start: 01-29-2022 End: 04-17-2023 take 1 tablet by mouth every six hours as needed for pain Ibuprofen 600 mg tablet Discontinued 600 mg PO EVERY 6 HOURS NEEDED as needed for pain 20 0 January 29, 2022 12:00am April 17, 2023 9:07am Lactobacillus Combination No.9 (Adult 50 Plus Probiotic) 4 billion cell capsule (20 sources) Start: 03-15-2022 End: 04-17-2023 take 4 [...] MMU CELLS PO DAILY March 15, 2022 1:00April 17, 2023 9:07am administer with a meal [...] meal levocetirizine dihydrochloride 5 mg oral tablet (20 sources) Histamine-1 Receptor Antagonist Start: 06-24-2023 End: 07-14-2023 take 1 tablet by mouth once daily Levocetirizine 5 mg tablet Discontinued 5 mg PO DAILY June 24, 2023 12:00am July 14, 2023 9:47am magnesium citrate 58.2 mg/ml oral solution (20 sources) Start: 07-19-2023 End: 08-29-2023 take 1 [...] the bottle. melatonin 5 mg oral capsule (20 sources) Start: 07-14-2023 End: 08-29-2023 take 1 [...] 2020 3:32pm mirtazapine 7.5 mg oral tablet (18 sources) Start: 08-29-2023 End: 03-19-2024 take 1 tablet by mouth at bedtime Mirtazapine 7.5 mg tablet Discontinued 7.5 mg PO AT BEDTIME August 29, 2023 12:00am March 19, 2024 11:21am Lv-Bo-Sayn-Jnrgkyw-K-Xm rb 333 (Alive Women's Ultra Potency) 18 mg-800 mcg DFE-150 mcg tablet (20 sources) Start: 06-24-2023 End: 03-19-2024 take 1 tablet by mouth once daily Ah-Xy-Zcxb-Mfola te-K-Herb 333 (Alive Women's Ultra Potency) 18 mg-800 mcg DFE-150 mcg tablet Discontinued 1 {tbl} PO DAILY June 24, 2023 12:00am March 19, 2024 11:22am Start: 06-24-2023 take 1 tablet by desiree once daily Yl-Jn-Oifs-Rpzivfh-M-Suin 333 (Alive Women's Ultra Potency) 18 mg-800 [...] Start: 01-26-2015 take 1 capsule by mo [facility] twice daily omeprazole (PRILOSEC) 20 mg capsule [...] HOURS NEEDED as needed for Mod-Severe Pain (4-10/10) 12 7 0 June 05, 2018 9:41am June 11, 2018 1:00am June 12, 2018 1:09am History of hysterectomy Acquired absence of both cervix and uterus potassium chloride 20 meq extended release oral tablet (20 sources) Start: 03-19-2024 End: 12-13-2024 take 1 tablet by mouth once daily Potassium Chloride 20 mEq tablet extended release Discontinued 20 meq PO daily March 19, 2024 1:00am December 13, 2024 11:14am Start: 02-12-2023 End: 03-19-2024 take 1 capsule [...] 30 2018 1:00am June 05, 2018 9:40am promethazine hydrochloride 25 mg oral tablet (20 sources) Phenothiazine Start: 07-19-2023 End: 08-29-2023 take 1 tablet by mouth three times daily as needed for nausea and vomiting Promethazine 25 mg tablet Discontinued 25 mg PO THREE TIMES A DAY as needed for nausea and vomiting 14 0 July 19, 2023 12:00am August 29, 2023 10:54am tamsulosin hydrochloride 0.4 mg oral capsule (20 sources) alpha-Adrenergic Warren Start: 01-29-2022 End: 04-17-2023 take 1 capsule by mouth once daily Tamsulosin (Flomax) 0.4 mg capsule Discontinued 0.4 mg PO DAILY 7 January 29, 2022 12:00am April 17, 2023 9:08am Problems Active Problems Problem Classification Problem Date Documented Da te Episodic/Chronic Administrative/social admission (7 sources) First encounter by subject; Translations: [Persons encountering health services in other specified circumstances] 10-18-2024 Episodic Anxiety disorders (9 sources) Moderate anxiety; Translations: [Anxiety disorder, unspecified] 10-18-2024 Chronic Calculus of urinary tract (20 sources) Ureteric stone; Translations: [Calculus of ureter] [...] shows normal sinus rhythm with no active Coma; stupor; and brain damage (20 sources) Daytime somnolence; Translations: [Somnolence] 01-31-2021 Episodic Complications of surgical procedures or medical care (20 sources) Postoperative hypothyroidism; Translations: [Postprocedural hypothyroidism] Onset: 03-19-2024 04-01-2022 Chronic Essential hypertension (20 sources) Essential hypertension; Translations: [Essential (primary) hypertension] Onset: 08-02-2015 01-31-2021 Chronic Comment on above: Patient blood pressu re is well-controlled therapy. Fluid and electrolyte disorders (1 source) Hypokalemia; Translations: [Hypokalemia] Onset: 11-23-2024 Episodic Menopausal disorders (20 sources) Postmenopausal bleeding; Translations: [Postmenopausal bleeding] 11-12-2018 Chronic Comment on above: d/t endometrial poly ps and submucosal fibroids Osteoarthritis (20 sources) Osteoarthritis of left knee joint; Translations: [Unilateral primary osteoarthritis, left knee] Onset: 01-07-2025 05-28-2024 Chronic Other acquired deformities (20 sources) Lumbar spondylolisthesis; Translations: [Spondylolisthesis, lumbar region] 05-01-2023 Episodic Other acquired deformities (1 source) Spondylolisthesis, lumbar region; Translations: [Acquired spondylolisthesis] 05-01-2023 Episodic Other connective tissue disease (20 sources) Synovial cyst of lumbar spine; Translations: [Other bursal cyst, other site] 05-01-2023 Episodic Other connective tissue disease (17 sources) Other bursal cyst, other site; Translations: [Synovial cyst, unspecified] 05-01-2023 Episodic Other female genital disorders (20 sources) Simple endometrial glandular hyperplasia without atypia; Translations: [Benign endometrial hyperplasia] 01-31-2021 Chronic Other gastrointestinal disorders (20 sources) Constipation; Translations: [Constipation, unspecified] 07-19-2023 Episodic Other nervous system disorders (20 sources) Peripheral nerve disease ; Translations: [Polyneuropathy, unspecified] 01-31-2021 Chronic Comment on above: feet and legs, nondi abetic Other nervous system disorders (9 sources) Polyneuropathy; Translations: [Polyneuropathy, unspecified] 10-18-2024 Chronic Other nutritional; endocrine; and metabolic disorders (20 sources) Obesity; Translations: [Obesity, unspecified] 01-31-2021 Chronic Other nutritional; endocrine; and metabolic disorders (2 sources) Body mass index 40+ - severely obese; Translations: [Morbid (severe) obesity due to excess calories] 12-13-2024 Chronic Otitis media and related conditions (1 source) Unspecified Eustachian tube disorder, bilateral; Translations: [Unspecified Eustachian tube disorder, bilateral] Onset: 12-14-2024 Episodic Residual codes; unclassified (20 sources) H/O Spinal surgery; Translations: [Other specified postprocedural states] 07-14-2023 Episodic Residual codes; unclassified (5 sources) Other specified postprocedural states; Translations: [Other postprocedural status] 07-15-2023 Episodic Rheumatoid arthritis and related disease (10 sources) Rheumatoid arthritis; Translations: [Rheumatoid arthritis, unspecified] Onset: 12-15-2024 10-18-2024 Chronic Past or Other Problems Problem Classification Problem Date Documented Da te Episodic/Chronic Abdominal pain (17 sources) Right flank pain; Translations: [Unspecified abdominal pain] Onset: 10-08-2024 10-08-2024 Episodic Coagulation and hemorrhagic disorders (20 sources) Easy bruising; Translations: [Spontaneous ecchymoses] Onset: 09-30-2024 09-30-2024 Episodic Comment on above: Age-related Other nervous system disorders (1 source) Skin sensation disturbance; Translations: [Unspecified disturbances of skin sensation] Onset: 04-09-2010 04-09-2010 Episodic Other screening for suspected conditions (not mental disorders or infectious disease) (1 source) Encounter for screening mammogram for malignant neoplasm of breast; Translations: [Encounter for screening mammogram for malignant neoplasm of breast] Onset: 06-01-2024 Episodic Spondylosis; intervertebral disc disorders; other back problems (20 sources) Lumbar radiculopathy; Translations: [Radiculopathy, lumbosacral region] Onset: 10-07-2024 04-10-2023 Episodic Results Test Name Value Interpretation Reference Range Facility Orthopedic Visit Reporton Orthopedic Visit Report [facility] [address] [place] [id number] OFFICE VISIT Date of Service: 01/07/25 MR#: [id number] Acct: [id number] Name: GINETTE MACKENZIE Rep #: [id number] : 1960 Provider: Dr. 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 Accompanied by: Is patient in pain?: Yes (B/L knee) Pain scale (1-10): 5 Allergies latex Allergy (Verified 01/07/25 09:15) Itching Medications ???Medication ???Instructions ???Recorded ???Confirmed ???Type valsartan 320 1 ea PO DAILY 03/11/18 01/07/25 Hi story mg-hydrochlorothiazide 12.5 mg tablet metoprolol tartrate 25 mg tablet 25 mg PO BID #180 tabs 04/05/21 Rx folic acid 1 mg tablet 2 mg PO QDAY 03/19/24 01/07/25 His tory leucovorin calcium 15 mg tablet 15 mg PO QWEEK 03/19/24 01/07/25 H istory tramadol 50 mg tablet 50 mg PO TID PRN 03/19/24 01/07/25 History methotrexate sodium 2.5 mg tablet 25 mg PO QWEEK 09/30/24 01/07/25 History prednisone 10 mg tablet 10 mg PO DIRECTED PRN 12/13/24 01/07/25 History levothyroxine 112 mcg tablet 112 mcg PO QDAY #90 tabs 01/05/25 01/07/25 Rx (Unithroid) duloxetine 30 mg capsule,delayed 30 mg PO QHS 01/07/25 01/07/25 His tory release pregabalin 75 mg capsule 75 mg PO BID 01/07/25 01/07/25 His tory turmeric 400 mg capsule 800 mg PO QDAY 01/07/25 01/07/25 H istory PFSH Medical History PONV (postoperative nausea and vomiting) Arthritis Easy bruising Back pain Gastric reflux Non-smoker Cardiology follow-up encounter Postoperative primary hypothyroidism Thyroid cancer COVID-19 virus detected (01/2020) Obesity Essential hypertension Endometrial hyperplasia without atypia, simple Daytime somnolence Peripheral neuropathy Bigeminy Premature ventricular contractions Postmenopausal bleeding Surgical History History of lumbar laminectomy for spinal cord decompression Status post laminectomy History of laparoscopic-assisted vaginal hysterectomy (06/04/18) Bryan teeth extracted History of cervical polypectomy History of removal of neck cyst History of thyroid surgery Family History Other Adopted Social History adopted: Yes (does not know medical history) household members: spouse current occupational status: retired current occupation: worked at [employer] Smoking Status: Never smoker alcohol intake: never substance use type: does not use caffeine: No what type of physical activity do you participate in: other details: yard work do you feel safe at home: Yes HPI BL KNEES Details: This documentation accurately reflects the service provided and the decisions made by me, Dr. Abisai Roman, DO 01/07/25812. Part of today???s visit was documented by [ ], acting as scribe. GINETTE MACKENZIE is a 64 year old F here today for B/L knee pain. Requests to discuss cortisone injections. B/L knee pain and stiffness worse in AM and with standing after sitting. L>R at this time but can change. Euflexxa injections were helpful initially but have worn off. Denies numbness, tingling or radiculopathy. No new injuries. Denies recent injections or PT. 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 10/18/2024 visit:3rd Euflexxa bilateral knee injection. 10/11/2024 visit:2nd bilateral knee Euflexxa injections. 10/04/2024 visit:1st Euflexxa bilateral knee injection. also bilateral knee steroid injections. 05/28/24: bilateral knee steroid injections. 12/31/23: here today for bilateral knee [...] injections or a TKA. Patient wishes to p (more content not included)... Normal [facility] Absolute lymphocyte countOrd ered By: Kristindarrell Mckay on 12-10-2024 Lymphocytes Auto (Unsp spec) [#/Vol] 1.19 10*3/uL 0.83-4.51 [facility] Absolute neutrophil countOrd ered By: [facility] on 12-10-2024 Neutrophils (Bld) [#/Vol] 5.6 10*3/uL 2.0-7.7 [facility] Anion gap in Serum or Plasma Ordered By: Kristin Mckay on 12-10-2024 Anion gap [Moles/Vol] 12 mmol/L 5-15 [facility] Automated lymphocyte count a s percentage of total leukocytesOrdered By: [facility] Nely on 12-10-2024 Lymphocytes/100 WBC Auto (Unsp spec) 15.8 % Low 19-41 [facility] BUN/creatinine ratioOrdered By: [facility] on 12-10-2024 Urea nitrogen/Creatinine [Mass ratio] 23.4 mg/mg High 10-20 [facility] Basophil percentageOrdered B y: Kristin Mckay on 12-10-2024 Basophils/100 WBC (Bld) 0.4 % 0-1 [facility] Bilirubin, totalOrdered By: [facility] on 12-10-2024 Bilirubin [Mass/Vol] 0.38 mg/dL 0.00-1.30 [facility] CBC W/Diff, Automatedon Absolute Lymph 1.19 X10 3/uL Normal 0.83-4.51 [facility] Comment on above: Performed By: #### L 100.0100, L500.4050 #### [facility] [address] [place], [address] Absolute Neut 5.6 X10 3/uL Normal 2.0-7.7 [facility] Comment on above: Performed By: #### L 100.0100, L500.4050 #### [facility] [address] [place], [address] Basophils/100 WBC (Bld) 0.4 % Normal 0-1 [facility] Comment on above: Performed By: #### L 100.0100, L500.4050 #### [facility] [address] [place], [address] Eosinophils/100 WBC (Bld) 0.3 % Normal 0-5 [facility] Comment on above: Performed By: #### L 100.0100, L500.4050 #### [facility] [address] [place], [address] Erythrocyte distribution width (RBC) [Ratio] 14.1 % Normal 11.6-14.6 [facility] Comment on above: Performed By: #### L 100.0100, L500.4050 #### [facility] [address] [place], [address] Hematocrit (Bld) [Volume fraction] 39.5 % Normal 37-47 [facility] Comment on above: Performed By: #### L 100.0100, L500.4050 #### [facility] [address] [place], [address] Hemoglobin (Bld) [Mass/Vol] 12.9 g/dL Normal 12.0-15.0 [facility] Comment on above: Performed By: #### L 100.0100, L500.4050 #### [facility] [address] [place], [address] IG% 0.400 Normal 0.0-0.9 [facility] Comment on above: Result Comment: IG% - Immature Granulocytes (promyelocytes, myelocytes and metamyelocytes) > 1% indicates that a LEFT SHIFT is Present. Performed By: #### L 100.0100, L500.4050 #### [facility] [address] [place], [address] Lymphocytes/100 WBC (Bld) 15.8 % Low 19-41 [facility] Comment on above: Performed By: #### L 100.0100, L500.4050 #### [facility] [address] [place], [address] MCH (RBC) [Entitic mass] 28.7 pg Normal 27.0-32.0 [facility] Comment on above: Performed By: #### L 100.0100, L500.4050 #### [facility] [address] [place], [address] MCHC (RBC) [Mass/Vol] 32.7 g/dL Normal 32-36 [facility] Comment on above: Performed By: #### L 100.0100, L500.4050 #### [facility] [address] [place], [address] MCV (RBC) [Entitic vol] 87.8 fL Normal 81-99 [facility] Comment on above: Performed By: #### L 100.0100, L500.4050 #### [facility] [address] [place], [address] Monocytes/100 WBC (Bld) 8.3 % Normal 0-10 [facility] Comment on above: Performed By: #### L 100.0100, L500.4050 #### [facility] [address] [place], [address] Neutrophils/100 WBC (Bld) 74.8 % High 47-70 [facility] Comment on above: Performed By: #### L 100.0100, L500.4050 #### [facility] [address] [place], [address] Nucleated RBC (Bld) [#/Vol] 0 10*3/uL Normal 0-5 [facility] Comment on above: Performed By: #### L 100.0100, L500.4050 #### [facility] [address] [place], [address] Platelet mean volume (Bld) [Entitic vol] 10.7 fL Normal 6.2-12.0 [facility] Comment on above: Performed By: #### L 100.0100, L500.4050 #### [facility] [address] [place], [address] Platelets (Bld) [#/Vol] 255 10*3/uL Normal 150-450 [facility] Comment on above: Performed By: #### L 100.0100, L500.4050 #### [facility] [address] [place], [address] RBC (Bld) [#/Vol] 4.50 10*6/uL Normal 4.2-5.4 [facility] Comment on above: Performed By: #### L 100.0100, L500.4050 #### [facility] [address] [place], [address] RDW SD 45.6 fl High 35.1-43.9 [facility] Comment on above: Performed By: #### L 100.0100, L500.4050 #### [facility] [address] [place], [address] WBC (Bld) [#/Vol] 7.5 10*3/uL Normal 4.4-11.0 [facility] Comment on above: Performed By: #### L 100.0100, L500.4050 #### [facility] [address] [place], [address] Carbon dioxide, total [Moles /volume] in Central venous bloodOrdered By: Kristin Mckay on 12-10-2024 CO2 [Moles/Vol] 24.8 mmol/L 21.0-32.0 [facility] Chloride assayOrdered By: Shweta Mcaky on 12-10-2024 Chloride [Moles/Vol] 103 mmol/L 98-108 [facility] Comprehensive Metabolic Prof ilon 12-10-2024 Albumin [Mass/Vol] 4.0 g/dL Normal 3.4-4.8 [facility] Comment on above: Performed By: #### L 100.0100, L500.4050 #### [facility] [address] [place], [address] Albumin/Globulin [Mass ratio] 1.4 {ratio} Normal 0.9-2.4 [facility] Comment on above: Performed By: #### L 100.0100, L500.4050 #### [facility] [address] [place], [address] ALK PHOS 66 U/L Normal 35-104 [facility] Comment on above: Performed By: #### L 100.0100, L500.4050 #### [facility] [address] [place], [address] ALT [Catalytic activity/Vol] 13 U/L Normal <=34 [facility] Comment on above: Performed By: #### L 100.0100, L500.4050 #### [facility] [address] [place], [address] AST [Catalytic activity/Vol] 14 U/L Normal <=31 [facility] Comment on above: Performed By: #### L 100.0100, L500.4050 #### [facility] [address] [place], [address] Bilirubin [Mass/Vol] 0.38 mg/dL Normal 0.00-1.30 [facility] Comment on above: Performed By: #### L 100.0100, L500.4050 #### [facility] [address] [place], [address] BUN/CRE 23.4 RATIO High 10-20 [facility] Comment on above: Performed By: #### L 100.0100, L500.4050 #### [facility] [address] [place], [address] Calcium [Mass/Vol] 9.5 mg/dL Normal 7.6-11.0 [facility] Comment on above: Performed By: #### L 100.0100, L500.4050 #### [facility] [address] [place], [address] Chloride [Moles/Vol] 103 mmol/L Normal 98-108 [facility] Comment on above: Performed By: #### L 100.0100, L500.4050 #### [facility] [address] [place], [address] CO2 [Moles/Vol] 24.8 mmol/L Normal 21.0-32.0 [facility] Comment on above: Performed By: #### L 100.0100, L500.4050 #### [facility] [address] [place], [address] Creatinine [Mass/Vol] 0.97 mg/dL Normal 0.70-1.20 [facility] Comment on above: Performed By: #### L 100.0100, L500.4050 #### [facility] [address] [place], [address] GAP 12 Normal 5-15 [facility] Comment on above: Performed By: #### L 100.0100, L500.4050 #### [facility] [address] [place], [address] GFR/1.73 sq M.predicted among non-blacks MDRD (S/P/Bld) [Vol rate/Area] 66 mL/min/{1.73_m2} Normal >60 [facility] Comment on above: Result Comment: mL/m in/1.73m2 CKD-EPI Creatinine Equation (2020) Performed By: #### L 100.0100, L500.4050 #### [facility] [address] [place], [address] Globulin (S) [Mass/Vol] 2.9 g/dL Normal 2.2-4.2 [facility] Comment on above: Performed By: #### L 100.0100, L500.4050 #### [facility] [address] [place], [address] Glucose [Mass/Vol] 104 mg/dL High 70-99 [facility] Comment on above: Performed By: #### L 100.0100, L500.4050 #### [facility] [address] [place], [address] Potassium [Moles/Vol] 3.9 mmol/L Normal 3.3-5.1 [facility] Comment on above: Performed By: #### L 100.0100, L500.4050 #### [facility] [address] [place], [address] Sodium [Moles/Vol] 140 mmol/L Normal 133-145 [facility] Comment on above: Performed By: #### L 100.0100, L500.4050 #### [facility] [address] [place], [address] T PROT 6.9 g/dL Normal 5.9-8.4 [facility] Comment on above: Performed By: #### L 100.0100, L500.4050 #### [facility] [address] [place], [address] Urea nitrogen [Mass/Vol] 23 mg/dL High 4-19 [facility] Comment on above: Performed By: #### L 100.0100, L500.4050 #### [facility] [address] [place], [address] Eosinophil percentageOrdered By: Kristindarrell Mckay on 12-10-2024 Eosinophils/100 WBC (Bld) 0.3 % 0-5 [facility] Erythrocyte distribution wid th ratioOrdered By: Kristin Mckay on 12-10-2024 Erythrocyte distribution width (RBC) [Ratio] 14.1 % 11.6-14.6 [facility] Erythrocyte distribution wid th standard deviationOrdered By: [facility] Nely on 12-10-2024 Erythrocyte distribution width (RBC) [Ratio] 45.6 fl High 35.1-43.9 [facility] Glomerular filtration rate ( GFR) estimation/1.73 sq m using serum, plasma, or whole bOrdered By: Kristindarrell Mckay on 12-10-2024 GFR/1.73 sq M.predicted among non-blacks MDRD (S/P/Bld) [Vol rate/Area] 66 mL/min/{1.73_m2} >60 [facility] Comment on above: mL/min/1.73m2 CKD-EP I Creatinine Equation (2020) Hematocrit Auto (Bld) [Volum e fraction]Ordered By: Kristin Mckay on 12-10-2024 Hematocrit (Bld) [Volume fraction] 39.5 % 37-47 [facility] Hemoglobin measurementOrdere d By: Kristin Mckay on 12-10-2024 Hemoglobin (Bld) [Mass/Vol] 12.9 g/dL 12.0-15.0 [facility] Immature granulocytes/100 WB C Auto (Bld)Ordered By: Kristin Mckay on 12-10-2024 Immature granulocytes/100 WBC (Bld) 0.400 % 0.0-0.9 [facility] Comment on above: IG% - Immature Granu locytes (promyelocytes, myelocytes and metamyelocytes) > 1% indicates that a LEFT SHIFT is Present. Internal Medicine Office Vis madalyn 12-10-2024 Internal Medicine Office Visit [facility] [address] [place], [place] [address] OFFICE VISIT Date of Service: 12/13/24 MR#: [id number] Acct: [id number] Name: GINETTE MACKENZIE Rep #: [id number] : 1960 Provider: Dr. Barbara malik MD Age/Sex: 64/F Location: [facility] [place].[facility] Status: Signed Intake Vital Signs 10/18/24 10:44 12/13/24 11:11 12/13/24 11:15 Height 5 ft 4 in 5 ft 4 in 5 ft 4 in Weight: 244 lb BMI 41.8 BP 126/78 H Blood Pressure Location Lt brachial Position Sitting Respiration 18 Pulse 69 Pulse Source Monitor Temp 97.8 F Temp Source Temporal Pulse Oximetry (%) 98 Oxygen Delivery Method room air Intake Visit Reasons: 8 WK Chief Complaint: 8 WK Is patient in pain?: Yes (5 bilateral knees and lower back ) Allergies latex Allergy (Verified 12/13/24 11:13) Itching Medications ???Medication ???Instructions ???Recorded ???Confirmed ???Type valsartan 320 1 ea PO DAILY 03/11/18 12/13/24 Hi story mg-hydrochlorothiazide 12.5 mg tablet metoprolol tartrate 25 mg tablet 25 mg PO BID #180 tabs 04/05/21 Rx folic acid 1 mg tablet 2 mg PO QDAY 03/19/24 12/13/24 His tory leucovorin calcium 15 mg tablet 15 mg PO QWEEK 03/19/24 12/13/24 H istory pregabalin 75 mg capsule 75 mg PO TID 03/19/24 12/13/24 His tory tramadol 50 mg tablet 50 mg PO TID PRN 03/19/24 12/13/24 History levothyroxine 112 mcg tablet 125 mcg PO QDAY 09/30/24 12/13/24 History methotrexate sodium 2.5 mg tablet 25 mg PO QWEEK 09/30/24 12/13/24 History omega 2-oos-igt-fish oil 300 2 cap PO QDAY 12/13/24 12/13/24 Hi story mg-1,000 mg capsule (Fish Oil) prednisone 10 mg tablet 10 mg PO DIRECTED PRN 12/13/24 12/13/24 History Have you fallen in the past year?: No Nurse's Note: pt reports recently having ear surgery. pt states that her hearing is still muffled, she plans to follow up with [facility] regarding this pt has concerns for arthritis pain. [facility] Medical History PONV (postoperative nausea and vomiting) Arthritis Easy bruising Back pain Gastric reflux Non-smoker Cardiology follow-up encounter Postoperative primary hypothyroidism Thyroid cancer COVID-19 virus detected (01/2020) Obesity Essential hypertension Endometrial hyperplasia without atypia, simple Daytime somnolence Peripheral neuropathy Bigeminy Premature ventricular contractions Postmenopausal bleeding Surgical History History of lumbar laminectomy for spinal cord decompression Status post laminectomy History of laparoscopic-assisted vaginal hysterectomy (06/04/18) Bryan teeth extracted History of cervical polypectomy History of removal of neck cyst History of thyroid surgery Family History Other Adopted Social History adopted: Yes (does not know medical history) household members: spouse current occupational status: retired current occupation: worked at [employer] Smoking Status: Never smoker alcohol intake: never substance use type: does not use caffeine: No what type of physical activity do you participate in: other details: yard work do you feel safe at home: Yes HPI HPI Chief Complaint: 8 WK Details: GINETTE MACKENZIE, is a 64 F who presents to the office today for a follow up. She is not due for any routine blood work. She reports she will be due for colon cancer screening next year. She doesn't know if she had both shingles vaccines. She doesn't smoke and doesn't need any refills. She reports she is somewhat eating healthy and staying active caring for farm animals. She doesn't check her blood pressure at home. She is taking her medication as prescribed without problems. She does try to monitor her salt intake. She was diagnosed with thyroid cancer back in 1989 and is s/p thyroidectomy. She takes her synthroid first thing in the morning before anything else. She follows with endocrinology and has an appointment coming up. She has a history of rheumatoid arthritis. She follows with rheumatology every 3 months and has an appointment tomorrow. She reports she hasn't taken the methotrexate for 3 weeks due to getting tubes in her ears. She has been struggling with her joint pain recently. She reports she has been [place] She rates her pain 5/10 currently. She reports she saw the chiropractor, but thinks it made it a little worse. She continues to take daily lyrica and PRN prednisone/tramadol. She reports the gel injections have worn off since she was last seen. The patient has a history of neuropathy in her feet and legs. She reports it has been going on for about (more content not included)... Normal [facility] - Chemistry and C hemistry - challengeOrdered By: Kristin Mckay on 12-10-2024 AST [Catalytic activity/Vol] 14 U/L <32 [facility] MCV (mean corpuscular volume ) determinationOrdered By: Kristin Mckay on 12-10-2024 MCV (RBC) [Entitic vol] 87.8 fL 81-99 [facility] Mean corpuscular hemoglobin (MCH) determinationOrdered By: Kristin Mckay on 12-10-2024 MCH (RBC) [Entitic mass] 28.7 pg 27.0-32.0 [facility] Mean corpuscular hemoglobin concentration (MCHC) determinationOrdered By: Kristin Mckay on 12-10-2024 MCHC (RBC) [Mass/Vol] 32.7 g/dL 32-36 [facility] Mean platelet volume determi nationOrdered By: Kristin Mckay on 12-10-2024 Platelet mean volume (Bld) [Entitic vol] 10.7 fL 6.2-12.0 [facility] Monocyte percentageOrdered B y: Kristin Mckay on 12-10-2024 Monocytes/100 WBC (Bld) 8.3 % 0-10 [facility] Neutrophil percentageOrdered By: Kristin Mckay on 12-10-2024 Neutrophils/100 WBC (Bld) 74.8 % High 47-70 [facility] Nucleated red blood cell per centageOrdered By: Kristin Mckay on 12-10-2024 Nucleated RBC/100 WBC (Bld) [Ratio] 0 % 0-5 [facility] Platelet countOrdered By: Shweta Mckay on 12-10-2024 Platelets (Bld) [#/Vol] 255 10*3/uL 150-450 [facility] Potassium measurement (mass/ volume)Ordered By: Kristin cMkay on 12-10-2024 Potassium (Unsp spec) [Mass/Vol] 3.9 mmol/L 3.3-5.1 [facility] RBC Auto (Bld) [#/Vol]Ordere d By: Kristin Mckay on 12-10-2024 RBC (Bld) [#/Vol] 4.50 10*6/uL 4.2-5.4 [facility] Serum creatinine measurement (mass/volume)Ordered By: Kristin Mckay on 12-10-2024 Creatinine [Mass/Vol] 0.97 mg/dL 0.70-1.20 [facility] Serum globulin measurementOr dered By: Kristin Mckay on 12-10-2024 Globulin (S) [Mass/Vol] 2.9 g/dL 2.2-4.2 [facility] Serum glucose measurement (m ass/volume)Ordered By: Kristin Mckay on 12-10-2024 Glucose [Mass/Vol] 104 mg/dL High 70-99 [facility] Serum or plasma alanine avery otransferase (ALT) measurementOrdered By: Kristin Mckay on 12-10-2024 ALT [Catalytic activity/Vol] 13 U/L <35 [facility] Serum or plasma albumin vazquez urement (mass/volume)Ordered By: Kristin Mckay on 12-10-2024 Albumin [Mass/Vol] 4.0 g/dL 3.4-4.8 [facility] Serum or plasma albumin/glob ulin mass ratioOrdered By: Kristin Mckay on 12-10-2024 Albumin/Globulin [Mass ratio] 1.4 {ratio} 0.9-2.4 [facility] Serum or plasma alkaline glen sphatase measurementOrdered By: Kristin Mckay on 12-10-2024 ALP [Catalytic activity/Vol] 66 U/L 35-104 [facility] Serum or plasma calcium vazquez urement (mass/volume)Ordered By: Kristin Mckay on 12-10-2024 Calcium [Mass/Vol] 9.5 mg/dL 7.6-11.0 [facility] Serum or plasma urea nitroge n measurement (mass/volume)Ordered By: Kristin Mckay on 12-10-2024 Urea nitrogen [Mass/Vol] 23 mg/dL High 4-19 [facility] Sodium levelOrdered By: Mark Mckay on 12-10-2024 Sodium [Moles/Vol] 140 mmol/L 133-145 [facility] Total proteinOrdered By: Esteban Mckay on 12-10-2024 Protein [Mass/Vol] 6.9 g/dL 5.9-8.4 [facility] White blood cell (WBC) count Ordered By: Kristin Mckay on 12-10-2024 WBC (Bld) [#/Vol] 7.5 10*3/uL 4.4-11.0 [facility] Surgery Specimen Level Rody 11-30-2024 Surgery Specimen Level IV Patient Age/Sex Location Account Attending Physician GINETTE MACKENZIE 64/F LABSPEC [id number] Laure Meredith Specimen: [id number] Received: 11/30/24 Status: ERVIN Charles Num: [id number] Spec Type: Mass Subm Dr: Dr. Javi Lenz MD HEADER OPERATION: Bilateral myringotomy with tubes, bilateral, excision of sinus cyst PRE-OP DIAGNOSIS: Other specified disorders of Eustachian tube, bilateral, other chronic sinusitis, acute serous otitis media, right ear TISSUE SUBMITTED: A- Sinus content, nasopharyngeal mass MICROSCOPIC DIAGNOSIS A. Simus content, bilateral, cyst/nasopharyngeal mass, excision: Sinonasal mucosa with marked chronic inflammation. Fragment of benign fibroadipose tissue. No evidence of neoplasia is seen in these sections. MICROSCOPIC DESCRIPTION Slides are reviewed. GROSS DESCRIPTION A. Received in formalin labeled with the patient's name and date of . Designated as nasopharyngeal mass is a 2.3 x 0.8 x 0.3 cm aggregate of mucoid material and smiley-pink tissue fragments. Entirely submitted in 1 cassette. [place] 12/01/2024 [facility]:[id number] Patient Age/Sex Location Account Attending Physician GINETTE MACKENZIE 64/F LABSPEC [id number] Laure Meredith Signed (signature on file) Dr. Nikia Tyler MD 12/13/24 1537 Normal [facility] Comment on above: Performed By: #### L 501.9520, L100.0100, L500.4050 #### [facility] Laboratory [address] [place], [place], [address] Electrocardiogram reportOrde red By: Papi Thomas on 11-23-2024 EKG study [facility] Cardiovascular Services [address] [place] [address] 12 Lead EKG 11/22/24 1155 MR#: [id number] Acct: [id number] Name: GINETTE MACKENZIE Rep #:[id number] : 1960 64 From: Papi Thomas MD Attending Dr: Dr. Javi Lenz MD Status: REG CLI Ordering Dr: Javi Lenz MD D ate: 11/22/24 Location: N Sex: F C Admitted: Test Reason : PREOP Blood Pressure : */* mmHG Vent. Rate : 67 BPM Atrial Rate : 67 BPM P-R Int : 174 ms QRS Dur : 84 ms QT Int : 422 ms P-R-T Axes : 8 -17 -3 degrees QTcB Int : 445 ms Normal sinus rhythm Cannot rule out Anterior infarct , age undetermined Abnormal ECG Confirmed by PAPI THOMAS MD ([id number]), website/blog editor JAX LENZ ([id number]) on 56:08:41 AM Referred By: Javi Lenz Confirmed By: PAPI THOMAS MD 11/23/24 0608 Date _ Papi Thomas MD CC: Dr. Barbara Vernon MD; Dr. Javi Lenz MD ~ Signed [facility] Work Phone: 12 Lead EKGon 11-22-2024 12 Lead EKG [facility] Cardiovascular Services [address] [place] [address] 12 Lead EKG 11/22/24 1155 MR#: [id number] Acct: [id number] Name: GINETTE MACKENZIE Rep #: [id number] : 1960 64 From: Papi Thomas MD Attending Dr: Dr. Javi Lenz MD Statu s: REG CLI Ordering Dr: Javi Lenz MD Date: 5 Location: N Sex: F C Admitted: Test Reason : PREOP Blood Pressure : */* mmHG Vent. Rate : 67 BPM Atrial Rate : 67 BPM P-R Int : 174 ms QRS Dur : 84 ms QT Int : 422 ms P-R-T Axes : 8 -17 -3 degrees QTcB Int : 445 ms Normal sinus rhythm Cannot rule out Anterior infarct , age undetermined Abnormal ECG Confirmed by PAPI THOMAS MD ([id number]), website/blog editor JAX LENZ ([id number]) on 11/23/2024 6:08:41 AM Referred By: Javi Lenz Confirmed By: PAPI THOMAS MD 11/23/24 0608 Date Papi Thomas MD CC: Dr. Barbara Vernon MD; Dr. Javi Lenz MD Signed Normal [facility] Anion gap in Serum or Plasma Ordered By: Javi Lenz on 11-22-2024 Anion gap [Moles/Vol] 10 mmol/L 5-15 [facility] BUN/creatinine ratioOrdered By: Javi Lenz on 11-22-2024 Urea nitrogen/Creatinine [Mass ratio] 23.3 mg/mg High 10- [facility] Basic Metabolic Profile (BMP )on 11-22-2024 BUN/CRE 23.3 RATIO High 01-24 [facility] Comment on above: Performed By: #### L 500.2500, L100.0500 #### [facility] Laboratory [address] [place], [address] Calcium [Mass/Vol] 9.6 mg/dL Normal 7.6-11.0 [facility] Comment on above: Performed By: #### L 500.2500, L100.0500 #### [facility] [address] [place], [address] Chloride [Moles/Vol] 103 mmol/L Normal 98-108 [facility] Comment on above: Performed By: #### L 500.2500, L100.0500 #### [facility] [address] [place], [address] CO2 [Moles/Vol] 27.9 mmol/L Normal 21.0-32.0 [facility] Comment on above: Performed By: #### L 500.2500, L100.0500 #### [facility] [address] [place], [address] Creatinine [Mass/Vol] 1.00 mg/dL Normal 0.70-1.20 [facility] Comment on above: Performed By: #### L 500.2500, L100.0500 #### [facility] [address] [place], [address] GAP 10 Normal 5-15 [facility] Comment on above: Performed By: #### L 500.2500, L100.0500 #### [facility] [address] [place], [address] GFR/1.73 sq M.predicted among non-blacks MDRD (S/P/Bld) [Vol rate/Area] 63 mL/min/{1.73_m2} Normal >60 [facility] Comment on above: Result Comment: mL/m in/1.73m2 CKD-EPI Creatinine Equation (2020) Performed By: #### L 500.2500, L100.0500 #### [facility] [address] [place], [address] Glucose [Mass/Vol] 123 mg/dL High 70-99 [facility] Comment on above: Performed By: #### L 500.2500, L100.0500 #### [facility] [address] [place], [address] Potassium [Moles/Vol] 4.3 mmol/L Normal 3.3-5.1 [facility] Comment on above: Result Comment: Hemo lysis present, Results??could be affected. ?? Performed By: #### L 500.2500, L100.0500 #### [facility] [address] [place], [address] Sodium [Moles/Vol] 141 mmol/L Normal 133-145 [facility] Comment on above: Performed By: #### L 500.2500, L100.0500 #### [facility] [address] [place], [address] Urea nitrogen [Mass/Vol] 23 mg/dL High 4-19 [facility] Comment on above: Performed By: #### L 500.2500, L100.0500 #### [facility] [address] [place], [address] CBC-Complete Blood Cnt No Lynette leeon 11-22-2024 Erythrocyte distribution width (RBC) [Ratio] 14.7 % High 11.6-14.6 [facility] Comment on above: Performed By: #### L 500.2500, L100.0500 #### [facility] [address] [place], [address] Hematocrit (Bld) [Volume fraction] 38.1 % Normal 37-47 [facility] Comment on above: Performed By: #### L 500.2500, L100.0500 #### [facility] [address] [place], [address] Hemoglobin (Bld) [Mass/Vol] 12.3 g/dL Normal 12.0-15.0 [facility] Comment on above: Performed By: #### L 500.2500, L100.0500 #### [facility] [address] [place], [address] MCH (RBC) [Entitic mass] 28.6 pg Normal 27.0-32.0 [facility] Comment on above: Performed By: #### L 500.2500, L100.0500 #### [facility] [address] [place], [address] MCHC (RBC) [Mass/Vol] 32.3 g/dL Normal 32-36 [facility] Comment on above: Performed By: #### L 500.2500, L100.0500 #### [facility] [address] [place], [address] MCV (RBC) [Entitic vol] 88.6 fL Normal 81-99 [facility] Comment on above: Performed By: #### L 500.2500, L100.0500 #### [facility] [address] [place], [address] Platelet mean volume (Bld) [Entitic vol] 10.0 fL Normal 6.2-12.0 [facility] Comment on above: Performed By: #### L 500.2500, L100.0500 #### [facility] [address] [place], [address] Platelets (Bld) [#/Vol] 271 10*3/uL Normal 150-450 [facility] Comment on above: Performed By: #### L 500.2500, L100.0500 #### [facility] [address] [place], [address] RBC (Bld) [#/Vol] 4.30 10*6/uL Normal 4.2-5.4 [facility] Comment on above: Performed By: #### L 500.2500, L100.0500 #### [facility] [address] [place], [address] RDW SD 46.8 fl High 35.1-43.9 [facility] Comment on above: Performed By: #### L 500.2500, L100.0500 #### [facility] [address] [place], [address] WBC (Bld) [#/Vol] 7.7 10*3/uL Normal 4.4-11.0 [facility] Comment on above: Performed By: #### L 500.2500, L100.0500 #### [facility] [address] [place], [address] Carbon dioxide, total [Moles /volume] in Central venous bloodOrdered By: Javi Lenz on 11-22-2024 CO2 [Moles/Vol] 27.9 mmol/L 21.0-32.0 [facility] Chloride assayOrdered By: Claus Lenz on 11-22-2024 Chloride [Moles/Vol] 103 mmol/L 98-108 [facility] Erythrocyte distribution wid th ratioOrdered By: Javi Lenz on 11-22-2024 Erythrocyte distribution width (RBC) [Ratio] 14.7 % High 11.6-14.6 [facility] Erythrocyte distribution wid th standard deviationOrdered By: Javi Lenz on 11-22-2024 Erythrocyte distribution width (RBC) [Ratio] 46.8 fl High 35.1-43.9 [facility] Glomerular filtration rate ( GFR) estimation/1.73 sq m using serum, plasma, or whole bOrdered By: Javi Lenz on 11-22-2024 GFR/1.73 sq M.predicted among non-blacks MDRD (S/P/Bld) [Vol rate/Area] 63 mL/min/{1.73_m2} >60 [facility] Comment on above: mL/min/1.73m2 CKD-EP I Creatinine Equation (2020) Hematocrit Auto (Bld) [Volum e fraction]Ordered By: Javi Lenz on 11-22-2024 Hematocrit (Bld) [Volume fraction] 38.1 % 37-47 [facility] Hemoglobin measurementOrdere d By: Javi Lenz on 11-22-2024 Hemoglobin (Bld) [Mass/Vol] 12.3 g/dL 12.0-15.0 [facility] MCV (mean corpuscular volume ) determinationOrdered By: Javi Lenz 11-22-2024 MCV (RBC) [Entitic vol] 88.6 fL 81-99 [facility] Mean corpuscular hemoglobin (MCH) determinationOrdered By: Javi Lenz on 11-22-2024 MCH (RBC) [Entitic mass] 28.6 pg 27.0-32.0 [facility] Mean corpuscular hemoglobin concentration (MCHC) determinationOrdered By: Javi Lenz on 11-22-2024 MCHC (RBC) [Mass/Vol] 32.3 g/dL 32-36 [facility] Mean platelet volume determi nationOrdered By: Javi Lenz on 11-22-2024 Platelet mean volume (Bld) [Entitic vol] 10.0 fL 6.2-12.0 [facility] Platelet countOrdered By: Claus Lenz on 11-22-2024 Platelets (Bld) [#/Vol] 271 10*3/uL 150-450 [facility] Potassium measurement (mass/ volume)Ordered By: Javi Lenz on 11-22-2024 Potassium (Unsp spec) [Mass/Vol] 4.3 mmol/L 3.3-5.1 [facility] Comment on above: Hemolysis present, R esults could be affected. RBC Auto (Bld) [#/Vol]Ordere d By: Javi Lenz on 11-22-2024 RBC (Bld) [#/Vol] 4.30 10*6/uL 4.2-5.4 [facility] Serum creatinine measurement (mass/volume)Ordered By: Javi Lenz on 11-22-2024 Creatinine [Mass/Vol] 1.00 mg/dL 0.70-1.20 [facility] Serum glucose measurement (m ass/volume)Ordered By: Javi Lenz on 11-22-2024 Glucose [Mass/Vol] 123 mg/dL High 70-99 [facility] Serum or plasma calcium vazquez urement (mass/volume)Ordered By: Javi Lenz on 11-22-2024 Calcium [Mass/Vol] 9.6 mg/dL 7.6-11.0 [facility] Serum or plasma urea nitroge n measurement (mass/volume)Ordered By: Javi Lenz on 11-22-2024 Urea nitrogen [Mass/Vol] 23 mg/dL High 4-19 [facility] Sodium levelOrdered By: Audra Lenz on 11-22-2024 Sodium [Moles/Vol] 141 mmol/L 133-145 [facility] White blood cell (WBC) count Ordered By: Javi Lenz on 11-22-2024 WBC (Bld) [#/Vol] 7.7 10*3/uL 4.4-11.0 [facility] Potassiumon 11-19-2024 Potassium [Moles/Vol] 4.1 mmol/L Normal 3.3-5.1 [facility] Comment on above: Performed By: #### L 501.9520, L100.0100, L500.4050 #### [facility] [address] [place], [address] Potassium measurement (mass/ volume)Ordered By: Barbara Vernon on 11-19-2024 Potassium (Unsp spec) [Mass/Vol] 4.1 mmol/L 3.3-5.1 [facility] Orthopedic Visit Reporton Orthopedic Visit Report [facility] [address] [place] [address] OFFICE VISIT Date of Service: 10/18/24 MR#: [id number] Acct: [id number] Name: GINETTE MACKENZIE Rep #: [id number] : 1960 Provider: Dr. Abisai neil DO Age/Sex: 64/F Location: [facility] Status: Signed Intake Vital Signs 09/30/24 09:06 10/08/24 08:26 10/18/24 08:22 Height 5 ft 4 in 5 ft 4 in 5 ft 4 in Weight: 241 lb 240 lb BMI 41.3 41.1 BP 166/94 H Respiration 18 Pulse 90 Temp 97.9 F Temp Source Oral Pulse Oximetry (%) 100 Intake Visit Reasons: BL KNEES Chief Complaint: 3rs Euflexxa bilateral knee injection Accompanied by: Is patient in pain?: No Allergies latex Allergy (Verified 10/18/24 08:23) Itching Medications ???Medication ???Instructions ???Recorded ???Confirmed ???Type valsartan 320 1 ea PO DAILY 03/11/18 10/18/24 Hi story mg-hydrochlorothiazide 12.5 mg tablet metoprolol tartrate 25 mg tablet 25 mg PO BID #180 tabs 04/05/21 Rx folic acid 1 mg tablet 2 mg PO QDAY 03/19/24 10/18/24 His tory leucovorin calcium 15 mg tablet 15 mg PO QWEEK 03/19/24 10/18/24 H istory potassium chloride 20 mEq 20 meq PO QDAY 03/19/24 10/18/24 H istory tablet,extended release prednisone 10 mg tablet 10 mg PO QDAY PRN 03/19/24 5 History pregabalin 75 mg capsule 75 mg PO TID 03/19/24 10/18/24 His tory tramadol 50 mg tablet 50 mg PO TID PRN 03/19/24 10/18/24 History celecoxib 200 mg capsule (Celebrex) 200 mg PO BID #30 caps 09/01/24 10/18/24 Rx levothyroxine 112 mcg tablet 125 mcg PO QDAY 09/30/24 10/18/24 History methotrexate sodium 2.5 mg tablet 25 mg PO QWEEK 09/30/24 10/18/24 History hydrocodone-acetaminophen 5-325mg 1 tab PO Q6H PRN PRN Pain 3 days 10/08/24 10/18/24 Rx 5mg-325mg #10 TABLETS Have you fallen in the past year?: No PFSH Medical History PONV (postoperative nausea and vomiting) Arthritis Easy bruising Back pain Gastric reflux Non-smoker Cardiology follow-up encounter Postoperative primary hypothyroidism Thyroid cancer COVID-19 virus detected (01/2020) Obesity Essential hypertension Endometrial hyperplasia without atypia, simple Daytime somnolence Peripheral neuropathy Bigeminy Premature ventricular contractions Postmenopausal bleeding Surgical History History of lumbar laminectomy for spinal cord decompression Status post laminectomy History of laparoscopic-assisted vaginal hysterectomy (06/04/18) Bryan teeth extracted History of cervical polypectomy History [...] made by me, Dr. Abisai Roman, DO 10/18/24 07. Part of today???s visit was documented by Sanaz Patterson MA, acting as scribe. GINETTE MACKENZIE is a 64 year old F here today for 3rd Euflexxa bilateral knee injection. 10/11/2024 visit:2nd bilateral knee Euflexxa injections. 10/04/2024 visit:1st Euflexxa bilateral knee injection. also bilateral knee steroid injections. 05/28/24: bilateral knee [...] well groomed Neurologic: Yes alert and Yes orien (more content not included)... Normal [facility] Internal Medicine Office Vis madalyn 10-14-2024 Internal Medicine Office Visit [facility] [address] [place], [place] [address] OFFICE VISIT Date of Service: 10/18/24 MR#: [id number] Acct: [id number] Name: GINETTE MACKENZIE Rep #: [id number] : 1960 Provider: Dr. 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 Building Materials Required: No Accompanied by: Self Is patient in pain?: Yes (right side pain) Pain scale (1-10): 2 Allergies latex Allergy (Verified 10/18/24 10:40) Itching Medications ???Medication ???Instructions ???Recorded ???Confirmed ???Type valsartan 320 1 ea PO DAILY 03/11/18 10/18/24 Hi story mg-hydrochlorothiazide 12.5 mg tablet metoprolol tartrate 25 mg tablet 25 mg PO BID #180 tabs 04/05/21 Rx folic acid 1 mg tablet 2 mg PO QDAY 03/19/24 10/18/24 His tory leucovorin calcium 15 mg tablet 15 mg PO QWEEK 03/19/24 10/18/24 H istory potassium chloride 20 mEq 20 meq PO QDAY 03/19/24 10/18/24 H istory tablet,extended release pregabalin 75 mg capsule 75 mg PO TID 03/19/24 10/18/24 His tory tramadol 50 mg tablet 50 mg PO TID PRN 03/19/24 10/18/24 History levothyroxine 112 mcg tablet 125 mcg PO QDAY 09/30/24 10/18/24 History methotrexate sodium 2.5 mg tablet 25 mg PO QWEEK 09/30/24 10/18/24 History hydrocodone-acetaminophen 5-325mg 1 tab PO Q6H PRN PRN Pain 3 days 10/08/24 10/18/24 Rx 5mg-325mg #10 TABLETS buspirone 5 mg tablet 5 mg PO BID #60 tabs 10/18/2410/05 Rx Nurse's Note: small stone in kidney dull pain all the time also just had gel injections in jameel knees PFSH Medical History PONV (postoperative nausea and vomiting) Arthritis Easy bruising Back pain Gastric reflux Non-smoker Cardiology follow-up encounter Postoperative primary hypothyroidism Thyroid cancer COVID-19 virus detected (01/2020) Obesity Essential hypertension Endometrial hyperplasia without atypia, simple Daytime somnolence Peripheral neuropathy Bigeminy Premature ventricular contractions Postmenopausal bleeding Surgical History History of lumbar laminectomy for spinal cord decompression Status post laminectomy History of laparoscopic-assisted vaginal hysterectomy (06/04/18) Bryan teeth extracted History of cervical polypectomy History of removal of neck cyst History of thyroid surgery Family History (Updated 10/18/24 @ 11:[address] Barbara Vernon MD) Other Adopted Social History (Updated 10/18/24 @ 11:[address] Barbara Vernon MD) adopted: Yes (does not know medical history) household members: spouse current occupational status: retired current occupation: worked at [employer] Smoking Status: Never smoker alcohol intake: never substance use type: does not use caffeine: No what type of physical activity do you participate in: other details: yard work do you feel safe at home: Yes Questionnaire PQH-9 BMS Over the last 2 weeks, how often have you been bothered by any of the following problems? 1. Little interest or pleasure in doing things: not at all 2. Feeling down, depressed, or hopeless: not at all 3. Trouble falling or staying asleep, or sleeping too much: not at all 4. Feeling tired or having little energy: not at all 5. Poor appetite or overeating: not at all 6. Feeling bad about yourself - or that you are a failure or have let yourself and your family down: not at all 7. Trouble concentrating on things, such as reading the newspaper or watching television: not at all 8. Moving or speaking so slowly that other people could have noticed? - Or the opposite - being so fidgety or restless that you have been moving around a lot more than usual: not at all 9. Thoughts that you would be better off or of hurting yourself in some way: not at all Total score: 0 If you checked off any problems, how difficult have these problems made it for you to do your work, take care of things at home, or get along with other people?: not difficult at all Source: Developed by Drs. Sanchez Kulkarni, Felicita Vásquez, Filiberto Jean Baptiste and colleagues, with an educational dwaine from [employer]. GENARO-7 BMS GENARO-7 Feeling nervous, anxious, or on edge: 1 = Several days Not being able to stop or control worryin = Nearly every day Worrying too much about d (more content not included)... Normal [facility] Orthopedic Visit Reporton Orthopedic Visit Report [facility] [address] [place] [address] OFFICE VISIT Date of Service: 10/11/24 MR#: [id number] Acct: [id number] Name: GINETTE MACKENZIE Rep #: [id number] : 1960 Provider: Dr. Abisai neil DO Age/Sex: 64/F Location: [facility] Status: Signed Intake Vital Signs 09/30/24 09:06 10/08/24 08:26 Height 5 ft 4 in 5 ft 4 in Intake Visit Reasons: BL KNEES Accompanied by: Allergies latex Allergy (Verified 10/08/24 08:26) Itching Medications ???Medication ???Instructions ???Recorded ???Confirmed ???Type valsartan 320 1 ea PO DAILY 03/11/18 10/11/24 Hi story mg-hydrochlorothiazide 12.5 mg tablet metoprolol tartrate 25 mg tablet 25 mg PO BID #180 tabs 04/05/21 Rx folic acid 1 mg tablet 2 mg PO QDAY 03/19/24 10/11/24 His tory leucovorin calcium 15 mg tablet 15 mg PO QWEEK 03/19/24 10/11/24 H istory potassium chloride 20 mEq 20 meq PO QDAY 03/19/24 10/11/24 H istory tablet,extended release prednisone 10 mg tablet 10 mg PO QDAY PRN 03/19/24 5 History pregabalin 75 mg capsule 75 mg PO TID 03/19/24 10/11/24 His tory tramadol 50 mg tablet 50 mg PO TID PRN 03/19/24 10/11/24 History celecoxib 200 mg capsule (Celebrex) 200 mg PO BID #30 caps 09/01/24 10/11/24 Rx levothyroxine 112 mcg tablet 125 mcg PO QDAY 09/30/24 10/11/24 History methotrexate sodium 2.5 mg tablet 25 mg PO QWEEK 09/30/24 10/11/24 History hydrocodone-acetaminophen 5-325mg 1 tab PO Q6H PRN PRN Pain 3 days 10/08/24 10/11/24 Rx 5mg-325mg #10 TABLETS PFSH Medical History PONV (postoperative nausea and vomiting) Arthritis Easy bruising Back pain Gastric reflux Non-smoker Cardiology follow-up encounter Postoperative primary hypothyroidism Thyroid cancer COVID-19 virus detected (01/2020) Obesity Essential hypertension Endometrial hyperplasia without atypia, simple Daytime somnolence Peripheral neuropathy Bigeminy Premature ventricular contractions Postmenopausal bleeding Surgical History Status post laminectomy History of laparoscopic-assisted vaginal hysterectomy (06/04/18) Bryan teeth extracted History of cervical polypectomy History [...] made by me, Dr. Abisai Roman, DO 10/11/24 0753. Part of today???s visit was documented by Jacquie ADAN, acting as scribe. GINETTE MACKENZIE is a 64 year old F here today for 2nd bilateral knee Euflexxa injections. 10/04/2024 visit:1st Euflexxa bilateral knee injection. also bilateral knee steroid injections. 05/28/24: bilateral knee [...] 1+: Valgus 30 Patella Translation: 1 KNEE: no joint effusion Left Knee Skin/Wound (more content not included)... Normal [facility] Abdomen/Pelvis without Conto n 10-08-2024 Abdomen/Pelvis without Cont [facility] Imaging Services [address] [place], [place] [address] Abdomen/Pelvis without Cont MR#: [id number] Acct: [id number] Name: GINETTE MACKENZIE Rep #: [id number] : 1960 F 64 From: Jae Landaverde MD PCP: Dr. Win Matos MD Status: REG ER Study: Abdomen/Pelvis without Cont Date of Exam: 07/30 Exam# [id number] Ordering Dr: Tony Quintana DO PROCEDURE: ABDOMEN/PELVIS WITHOUT CONT 10/08/2024 REASON FOR EXAM: PAIN TECHNIQUE: ABDOMEN/PELVIS WITHOUT CONT Noncontrast technique limits evaluation of the abdominal and pelvic viscera. Coronal and Sagittal reconstruction series were provided. One or more dose reduction techniques were used (e.g., Automated exposure control, adjustment of the mA and/or kV according to patient size, use of iterative reconstruction technique). RADIATION DOSE SUMMARY: CTDlvol: 22.65 mGy DLP: 1273.10 mGycm COMPARISON: 01/29/2022 FINDINGS: Lung bases: Mild dependent atelectasis Liver: Normal size. No obvious mass. Gallbladder: Unremarkable Spleen: Normal size. Pancreas: Normal size. No surrounding inflammation. Adrenals: Unremarkable Kidneys: No obstructive uropathy, or suspicious solid renal lesion, there is a nonobstructing 2 mm stone in the right kidney. Bladder: Unremarkable Reproductive Organs: Likely surgically absent Bowel: No evidence of ileus or obstruction. No CT evidence of an acute inflammatory process. Retained stool noted in the colon. Hyperdensity in the cecum likely represents ingested medication. Appendix: Normal appendix seen on coronal recon images 70 through 77. No free intraperitoneal fluid, air, or suspicious adenopathy, IVC and aorta are unremarkable Bones: Bony structures show degenerative change CT/Abdomen/Pelvis without Cont IMPRESSION: No suspicious solid organ abnormality, nonobstructing right nephrolithiasis No free intraperitoneal fluid, air, or suspicious adenopathy, normal appendix visualized Degenerative bony changes Reading Location: [id number] CC: Dr. Tony Quintana DO; Dr. Win Matos MD Management Manager: Signed Normal [facility] Absolute lymphocyte countOrd ered By: Tony Quintana on 10-08-2024 Lymphocytes Auto (Unsp spec) [#/Vol] 1.59 10*3/uL 0.83-4.51 [facility] Absolute neutrophil countOrd ered By: Tony Quintana on 10-08-2024 Neutrophils (Bld) [#/Vol] 6.8 10*3/uL 2.0-7.7 [facility] Anion gap in Serum or Plasma Ordered By: Tony Quintana on 10-08-2024 Anion gap [Moles/Vol] 12 mmol/L 5-15 [facility] Automated lymphocyte count a s percentage of total leukocytesOrdered By: Tony Quintana on 10-08-2024 Lymphocytes/100 WBC Auto (Unsp spec) 17.4 % Low 19-41 [facility] BUN/creatinine ratioOrdered By: Tony Quintana on 10-08-2024 Urea nitrogen/Creatinine [Mass ratio] 34.1 mg/mg High 10-20 [facility] Basophil percentageOrdered B y: Tony Quintana on 10-08-2024 Basophils/100 WBC (Bld) 0.2 % 0-1 [facility] Bilirubin Test strip Ql (U)O rdered By: Tony Mibryan on 10-08-2024 Bilirubin Ql (U) Negative Negative [facility] Bilirubin, totalOrdered By: Tony Mibryan on 10-08-2024 Bilirubin [Mass/Vol] 0.27 mg/dL 0.00-1.30 [facility] CBC W/Diff, Automatedon Absolute Lymph 1.59 X10 3/uL Normal 0.83-4.51 [facility] Comment on above: Performed By: #### L 501.9520, L100.0100, L500.4050 #### [facility] [address] [place], [address] Absolute Neut 6.8 X10 3/uL Normal 2.0-7.7 [facility] Comment on above: Performed By: #### L 501.9520, L100.0100, L500.4050 #### [facility] [address] [place], [address] Basophils/100 WBC (Bld) 0.2 % Normal 0-1 [facility] Comment on above: Performed By: #### L 501.9520, L100.0100, L500.4050 #### [facility] [address] [place], [address] Eosinophils/100 WBC (Bld) 0.1 % Normal 0-5 [facility] Comment on above: Performed By: #### L 501.9520, L100.0100, L500.4050 #### [facility] [address] [place], [address] Erythrocyte distribution width (RBC) [Ratio] 13.1 % Normal 11.6-14.6 [facility] Comment on above: Performed By: #### L 501.9520, L100.0100, L500.4050 #### [facility] [address] [place], [address] Hematocrit (Bld) [Volume fraction] 35.9 % Low 37-47 [facility] Comment on above: Performed By: #### L 501.9520, L100.0100, L500.4050 #### [facility] [address] [place], [address] Hemoglobin (Bld) [Mass/Vol] 11.6 g/dL Low 12.0-15.0 [facility] Comment on above: Performed By: #### L 501.9520, L100.0100, L500.4050 #### [facility] [address] [place], [address] IG% 1.200 High 0.0-0.9 [facility] Comment on above: Result Comment: IG% - Immature Granulocytes (promyelocytes, myelocytes and metamyelocytes) > 1% indicates that a LEFT SHIFT is Present. Performed By: #### L 501.9520, L100.0100, L500.4050 #### [facility] [address] [place], [address] Lymphocytes/100 WBC (Bld) 17.4 % Low 19-41 [facility] Comment on above: Performed By: #### L 501.9520, L100.0100, L500.4050 #### [facility] [address] [place], [address] MCH (RBC) [Entitic mass] 28.2 pg Normal 27.0-32.0 [facility] Comment on above: Performed By: #### L 501.9520, L100.0100, L500.4050 #### [facility] [address] [place], [address] MCHC (RBC) [Mass/Vol] 32.3 g/dL Normal 32-36 [facility] Comment on above: Performed By: #### L 501.9520, L100.0100, L500.4050 #### [facility] [address] [place], [address] MCV (RBC) [Entitic vol] 87.1 fL Normal 81-99 [facility] Comment on above: Performed By: #### L 501.9520, L100.0100, L500.4050 #### [facility] [address] [place], [address] Monocytes/100 WBC (Bld) 6.3 % Normal 0-10 [facility] Comment on above: Performed By: #### L 501.9520, L100.0100, L500.4050 #### [facility] [address] [place], [address] Neutrophils/100 WBC (Bld) 74.8 % High 47-70 [facility] Comment on above: Performed By: #### L 501.9520, L100.0100, L500.4050 #### [facility] [address] [place], [address] Nucleated RBC (Bld) [#/Vol] 0 10*3/uL Normal 0-5 [facility] Comment on above: Performed By: #### L 501.9520, L100.0100, L500.4050 #### [facility] [address] [place], [address] Platelet mean volume (Bld) [Entitic vol] 10.6 fL Normal 6.2-12.0 [facility] Comment on above: Performed By: #### L 501.9520, L100.0100, L500.4050 #### [facility] [address] [place], [address] Platelets (Bld) [#/Vol] 244 10*3/uL Normal 150-450 [facility] Comment on above: Performed By: #### L 501.9520, L100.0100, L500.4050 #### [facility] [address] [place], [address] RBC (Bld) [#/Vol] 4.12 10*6/uL Low 4.2-5.4 [facility] Comment on above: Performed By: #### L 501.9520, L100.0100, L500.4050 #### [facility] [address] [place], [address] RDW SD 40.5 fl Normal 35.1-43.9 [facility] Comment on above: Performed By: #### L 501.9520, L100.0100, L500.4050 #### [facility] [address] [place], [address] WBC (Bld) [#/Vol] 9.2 10*3/uL Normal 4.4-11.0 [facility] Comment on above: Performed By: #### L 501.9520, L100.0100, L500.4050 #### [facility] [address] [place], [address] Carbon dioxide, total [Moles /volume] in Central venous bloodOrdered By: Tony Quintana on 10-08-2024 CO2 [Moles/Vol] 23.2 mmol/L 21.0-32.0 [facility] Chloride assayOrdered By: Renan Quintana on 10-08-2024 Chloride [Moles/Vol] 104 mmol/L 98-108 [facility] Comprehensive Metabolic Prof ilon 10-08-2024 Albumin [Mass/Vol] 3.9 g/dL Normal 3.4-4.8 [facility] Comment on above: Performed By: #### L 501.9520, L100.0100, L500.4050 #### [facility] [address] [place], [address] Albumin/Globulin [Mass ratio] 1.5 {ratio} Normal 0.9-2.4 [facility] Comment on above: Performed By: #### L 501.9520, L100.0100, L500.4050 #### [facility] [address] [place], [address] ALK PHOS 60 U/L Normal 35-104 [facility] Comment on above: Performed By: #### L 501.9520, L100.0100, L500.4050 #### [facility] [address] [place], [address] ALT [Catalytic activity/Vol] 17 U/L Normal <=34 [facility] Comment on above: Performed By: #### L 501.9520, L100.0100, L500.4050 #### [facility] [address] [place], [address] AST [Catalytic activity/Vol] 16 U/L Normal <=31 [facility] Comment on above: Performed By: #### L 501.9520, L100.0100, L500.4050 #### [facility] [address] [place], [address] Bilirubin [Mass/Vol] 0.27 mg/dL Normal 0.00-1.30 [facility] Comment on above: Performed By: #### L 501.9520, L100.0100, L500.4050 #### [facility] [address] [place], [address] BUN/CRE 34.1 RATIO High 10-20 [facility] Comment on above: Performed By: #### L 501.9520, L100.0100, L500.4050 #### [facility] [address] [place], [address] Calcium [Mass/Vol] 9.0 mg/dL Normal 7.6-11.0 [facility] Comment on above: Performed By: #### L 501.9520, L100.0100, L500.4050 #### [facility] [address] [place], [address] Chloride [Moles/Vol] 104 mmol/L Normal 98-108 [facility] Comment on above: Performed By: #### L 501.9520, L100.0100, L500.4050 #### [facility] [address] [place], [address] CO2 [Moles/Vol] 23.2 mmol/L Normal 21.0-32.0 [facility] Comment on above: Performed By: #### L 501.9520, L100.0100, L500.4050 #### [facility] [address] [place], [address] Creatinine [Mass/Vol] 0.94 mg/dL Normal 0.70-1.20 [facility] Comment on above: Performed By: #### L 501.9520, L100.0100, L500.4050 #### [facility] [address] [place], [address] ECRCL 73.06 ml/min Normal 50-250 [facility] Comment on above: Performed By: #### L 501.9520, L100.0100, L500.4050 #### [facility] [address] [place], [address] GAP 12 Normal 5-15 [facility] Comment on above: Performed By: #### L 501.9520, L100.0100, L500.4050 #### [facility] [address] [place], [address] GFR/1.73 sq M.predicted among non-blacks MDRD (S/P/Bld) [Vol rate/Area] 68 mL/min/{1.73_m2} Normal >60 [facility] Comment on above: Result Comment: mL/m in/1.73m2 CKD-EPI Creatinine Equation (2020) Performed By: #### L 501.9520, L100.0100, L500.4050 #### [facility] [address] [place], [address] Globulin (S) [Mass/Vol] 2.6 g/dL Normal 2.2-4.2 [facility] Comment on above: Performed By: #### L 501.9520, L100.0100, L500.4050 #### [facility] [address] [place], [address] Glucose [Mass/Vol] 191 mg/dL High 70-99 [facility] Comment on above: Performed By: #### L 501.9520, L100.0100, L500.4050 #### [facility] [address] [place], [address] Potassium [Moles/Vol] 3.7 mmol/L Normal 3.3-5.1 [facility] Comment on above: Performed By: #### L 501.9520, L100.0100, L500.4050 #### [facility] [address] [place], [address] Sodium [Moles/Vol] 140 mmol/L Normal 133-145 [facility] Comment on above: Performed By: #### L 501.9520, L100.0100, L500.4050 #### [facility] [address] [place], [address] T PROT 6.5 g/dL Normal 5.9-8.4 [facility] Comment on above: Performed By: #### L 501.9520, L100.0100, L500.4050 #### [facility] [address] [place], [address] Urea nitrogen [Mass/Vol] 32 mg/dL High 4-19 [facility] Comment on above: Performed By: #### L 501.9520, L100.0100, L500.4050 #### [facility] [address] [place], [address] Emergency Department Summary on 10-08-2024 Emergency Department Summary [facility] Medical Records Department [address] [place] [address] Emergency Department Summary 10/08/24 MR#: [id number] Acct: [id number] Name: GINETTE MACKENZIE Rep #: [id number] : 1960 64 From: Tony Quintana DO PCP: Dr. Win Matos MD Status:DEP ER Location: ED HPI HPI - GI History of Present Illness Chief Complaint: Abd Pain Informant: patient Abdominal Pain/Flank Pain Onset: Weeks (2) Context: Gradual Onset Timing: Continuous Quality: Sharp and Stabbing Location: Right Flank Worsened by: Movement and - (Deep breathing) Relieved by: Remaining Still Nausea/Vomiting/Emesis GI Symptom: Negative for Nausea or Vomiting Diarrhea/Melena/Hematoche hemal GI Symptom: Negative for Diarrhea, Melena or Hematochezia Associated Symptoms Associated Symptoms: Positive for Frequency; Negative for Dysuria or Hematuria Narrative Narrative: Patient presents with abdominal pain is been getting worse over the past 2 weeks. Patient states is gradually getting worse. Patient describes it as sharp and stabbing. Patient states it is constant. Patient states it is mainly over the right flank area. Patient states it is worse with movement and deep breathing. Patient states it is better when she is able to remain still. Patient denies any nausea or vomiting. Patient denies any diarrhea, melena, or hematochezia. Patient admits to some urinary frequency but denies any dysuria or hematuria. Patient denies any fevers or chills. [facility] Medical History PONV (postoperative nausea and vomiting) Arthritis Easy bruising Back pain Gastric reflux Non-smoker Cardiology follow-up encounter Postoperative primary hypothyroidism Thyroid cancer COVID-19 virus detected (01/2020) Obesity Essential hypertension Endometrial hyperplasia without atypia, simple Daytime somnolence Peripheral neuropathy Bigeminy Premature ventricular contractions Postmenopausal bleeding Home Medications ???Medication ???Instructions ???Recorded ???Last Taken ???Type valsartan 320 1 ea PO DAILY 03/11/18 07/13/23 Hi story mg-hydrochlorothiazide 12.5 mg tablet metoprolol tartrate 25 mg tablet 25 mg PO BID #180 tabs 04/05/21 Rx folic acid 1 mg tablet 2 mg PO QDAY 03/19/24 Unknown Hist ory leucovorin calcium 15 mg tablet 15 mg PO QWEEK 03/19/24 Unknown Hi story potassium chloride 20 mEq 20 meq PO QDAY 03/19/24 Unknown Hi story tablet,extended release prednisone 10 mg tablet 10 mg PO QDAY PRN 03/19/24 Unknown History pregabalin 75 mg capsule 75 mg PO TID 03/19/24 Unknown Hist ory tramadol 50 mg tablet 50 mg PO TID PRN 03/19/24 Unknown History celecoxib 200 mg capsule (Celebrex) 200 mg PO BID #30 caps 09/01/24 Unknown Rx levothyroxine 112 mcg tablet 125 mcg PO QDAY 09/30/24 Unknown H istory methotrexate sodium 2.5 mg tablet 25 mg PO QWEEK 09/30/24 Unknown H istory hydrocodone-acetaminophen 5-325mg 1 tab PO Q6H PRN PRN Pain 3 days 10/08/24 Unknown Rx 5mg-325mg #10 TABLETS Allergy/AdvReac Type Severity Reaction Status Date / Time latex Allergy Itching Verified 10/08/24 08:26 Family History Unknown No problems noted. Surgical History Status post laminectomy History of laparoscopic-assisted vaginal hysterectomy (06/04/18) Bryan teeth extracted History of cervical polypectomy History of removal of neck cyst History of thyroid surgery Social History adopted: Yes (does not know medical history) Smoking Status: Never smoker alcohol intake: never substance use type: does not use caffeine: No what type of physical activity do you participate in: other details: yard work ROS ROS ED Constitutional Constitutional ED: Denies chills or fever(s) Eyes Eyes: Denies blurry vision or change in vision ENT ENT ED: Denies rhinorrhea or sore throat Cardiovascular Cardiovascular: Denies chest pain or palpitations Respiratory/Chest Respiratory/Chest: Reports cough; Denies dyspnea Gastrointestinal Gastrointestinal: Denies nausea or vomiting Genitourinary Genitourinary ED: Denies dysuria or hematuria Musculoskeletal Musculoskeletal: Reports back pain; Denies neck pain Integumentary Denies abscess or rash Neurologic Neurologic: Denies headache(s) or weakness Allergic/Immunologic Allergic/Immunologic ED: Denies mouth swelling or urticaria EXAM Physical Exam Const Vital Signs: 10/08/24 08:26 10/08/24 10:46 Temperature 97.9 F Temperature Source Oral Pulse Rate 90 53 L Respiratory Rate 18 15 Blood Pressure 166/94 H 140/84 H Blood Pressure Mean 118 102 Pulse (more content not included)... Normal [facility] Eosinophil percentageOrdered By: Tony Quitnana on 10-08-2024 Eosinophils/100 WBC (Bld) 0.1 % 0-5 [facility] Erythrocyte distribution wid th ratioOrdered By: Tony Quintana on 10-08-2024 Erythrocyte distribution width (RBC) [Ratio] 13.1 % 11.6-14.6 [facility] Erythrocyte distribution wid th standard deviationOrdered By: Tony Quintana on 10-08-2024 Erythrocyte distribution width (RBC) [Ratio] 40.5 fl 35.1-43.9 [facility] Glomerular filtration rate ( GFR) estimation/1.73 sq m using serum, plasma, or whole bOrdered By: Tony Quintana on 10-08-2024 GFR/1.73 sq M.predicted among non-blacks MDRD (S/P/Bld) [Vol rate/Area] 68 mL/min/{1.73_m2} >60 [facility] Comment on above: mL/min/1.73m2 CKD-EP I Creatinine Equation (2020) Hematocrit Auto (Bld) [Volum e fraction]Ordered By: Tony Quintana on 10-08-2024 Hematocrit (Bld) [Volume fraction] 35.9 % Low 37-47 [facility] Hemoglobin measurementOrdere d By: Tony Quintana on 10-08-2024 Hemoglobin (Bld) [Mass/Vol] 11.6 g/dL Low 12.0-15.0 [facility] Immature granulocytes/100 WB C Auto (Bld)Ordered By: Tony Quintana on 10-08-2024 Immature granulocytes/100 WBC (Bld) 1.200 % High 0.0-0.9 [facility] Comment on above: IG% - Immature Granu locytes (promyelocytes, myelocytes and metamyelocytes) > 1% indicates that a LEFT SHIFT is Present. Ketones Test strip Ql (U)Ord ered By: Tony Quintana on 10-08-2024 Ketones Ql (U) Negative Negative [facility] Laboratory - Chemistry and C hemistry - challengeOrdered By: Tnoy Quintana on 10-08-2024 AST [Catalytic activity/Vol] 16 U/L <32 [facility] Lipaseon 10-08-2024 Lipase [Catalytic activity/Vol] 35 U/L Normal 13-75 [facility] Comment on above: Result Comment: Raiaz rajput note: LIPASE revised reference range effective 22. New Lipase methodology. Expected to produce lower values than the previous assay method. NEW Reference Range: 13 - 75 U/L Performed By: #### L 501.9520, L100.0100, L500.4050 #### [facility] [address] [place] [address], [address] Lipase measurementOrdered By : Tony Quintana on 10-08-2024 Lipase [Catalytic activity/Vol] 35 U/L 13-75 [facility] Comment on above: Please note:LIPASE r evised reference range effective 22. New Lipase methodology. Expected to produce lower values than the previous assay method. NEW Reference Range: 13 - 75 U/L MCV (mean corpuscular volume ) determinationOrdered By: Tony Quintana on 10-08-2024 MCV (RBC) [Entitic vol] 87.1 fL 81-99 [facility] Mean corpuscular hemoglobin (MCH) determinationOrdered By: Tony Quintana on 10-08-2024 MCH (RBC) [Entitic mass] 28.2 pg 27.0-32.0 [facility] Mean corpuscular hemoglobin concentration (MCHC) determinationOrdered By: Tony Quintana on 10-08-2024 MCHC (RBC) [Mass/Vol] 32.3 g/dL 32-36 [facility] Mean platelet volume determi nationOrdered By: Tony Quintana on 10-08-2024 Platelet mean volume (Bld) [Entitic vol] 10.6 fL 6.2-12.0 [facility] Microscopic analysis of urin e for red blood cells (RBC)Ordered By: Tony Quintana on 10-08-2024 Microscopic analysis of urine for red blood cells (RBC) 0 SEEN /hpf 0-5 [facility] Monocyte percentageOrdered B y: Tony Quintana on 10-08-2024 Monocytes/100 WBC (Bld) 6.3 % 0-10 [facility] Mucus LM Ql (Urine sed)Order ed By: Tony Quintana on 10-08-2024 Mucus Ql (Urine sed) 0 SEEN /hpf [facility] Neutrophil percentageOrdered By: Tony Quintana on 10-08-2024 Neutrophils/100 WBC (Bld) 74.8 % High 47-70 [facility] Nitrite Test strip Ql (U)Ord ered By: Tony Quintana on 10-08-2024 Nitrite Ql (U) Negative Negative [facility] Nucleated red blood cell per centageOrdered By: Tony Quintana on 10-08-2024 Nucleated RBC/100 WBC (Bld) [Ratio] 0 % 0-5 [facility] Platelet countOrdered By: Renan Quintana on 10-08-2024 Platelets (Bld) [#/Vol] 244 10*3/uL 150-450 [facility] Potassium measurement (mass/ volume)Ordered By: Tony Quintana on 10-08-2024 Potassium (Unsp spec) [Mass/Vol] 3.7 mmol/L 3.3-5.1 [facility] Protein Test strip Ql (U)Ord ered By: Tony Quintana on 10-08-2024 Protein Ql (U) Negative Negative [facility] RBC Auto (Bld) [#/Vol]Ordere d By: Tony Quintaan on 10-08-2024 RBC (Bld) [#/Vol] 4.12 10*6/uL Low 4.2-5.4 [facility] Serum creatinine measurement (mass/volume)Ordered By: Tony Quintana on 10-08-2024 Creatinine [Mass/Vol] 0.94 mg/dL 0.70-1.20 [facility] Serum globulin measurementOr dered By: Tony Quintana on 10-08-2024 Globulin (S) [Mass/Vol] 2.6 g/dL 2.2-4.2 [facility] Serum glucose measurement (m ass/volume)Ordered By: Tony Quintana on 10-08-2024 Glucose [Mass/Vol] 191 mg/dL High 70-99 [facility] Serum or plasma alanine avery otransferase (ALT) measurementOrdered By: Tony Quintana on 10-08-2024 ALT [Catalytic activity/Vol] 17 U/L <35 [facility] Serum or plasma albumin vazquez urement (mass/volume)Ordered By: Tony Quintana on 10-08-2024 Albumin [Mass/Vol] 3.9 g/dL 3.4-4.8 [facility] Serum or plasma albumin/glob ulin mass ratioOrdered By: Tony Quintana on 10-08-2024 Albumin/Globulin [Mass ratio] 1.5 {ratio} 0.9-2.4 [facility] Serum or plasma alkaline glen sphatase measurementOrdered By: Tony Quintana 10-08-2024 ALP [Catalytic activity/Vol] 60 U/L 35-104 [facility] Serum or plasma calcium vazquez urement (mass/volume)Ordered By: Tony Quintana on 10-08-2024 Calcium [Mass/Vol] 9.0 mg/dL 7.6-11.0 [facility] Serum or plasma urea nitroge n measurement (mass/volume)Ordered By: Tony Quintana on 10-08-2024 Urea nitrogen [Mass/Vol] 32 mg/dL High 4-19 [facility] Sodium levelOrdered By: Tony Quintana on 10-08-2024 Sodium [Moles/Vol] 140 mmol/L 133-145 [facility] Squamous epithelial cells de tection in urine sediment by light microscopyOrdered By: Tony Quintana on 10-08-2024 Epithelial cells.squamous LM Ql (Urine sed) 0-5 SEEN /hpf 5-10 [facility] Total proteinOrdered By: Rosina Quintana on 10-08-2024 Protein [Mass/Vol] 6.5 g/dL 5.9-8.4 [facility] Urinalysis, Completeon 10-08 EPI,SQUAMOUS 0-5 SEEN Normal 5-10 [facility] Comment on above: Order Comment: CLEAN CATCH Performed By: #### L 400.0001 #### [facility] [address] [place], [address] BACTERIA 0 SEEN Normal None Seen [facility] Comment on above: Order Comment: CLEAN CATCH Performed By: #### L 400.0001 #### [facility] [address] [place], [address] Mucus Ql (Urine sed) 0 SEEN Normal [facility] Comment on above: Order Comment: CLEAN CATCH Performed By: #### L 400.0001 #### [facility] [address] [place], [address] RBC 0 SEEN Normal 0-5 [facility] Comment on above: Order Comment: CLEAN CATCH Performed By: #### L 400.0001 #### [facility] [address] [place], [address] WBC 0 SEEN Normal 0-5 [facility] Comment on above: Order Comment: CLEAN CATCH Performed By: #### L 400.0001 #### [facility] [address] [place], [address] Urine clarityOrdered By: Rosina Quintana on 10-08-2024 Clarity (U) Clear Clear [facility] Urine color determinationOrd ered By: Tony Quintana on 10-08-2024 Color (U) Yellow Yellow [facility] Urine glucose detectionOrder ed By: Tony Quintana on 10-08-2024 Glucose Ql (U) Normal mg/dl Normal [facility] Urine leukocyte esterase det ection by dipstickOrdered By: Tony Qiuntana on 10-08-2024 Leukocyte esterase Test strip Ql (U) 100 /ul High Negative [facility] Urine pHOrdered By: Tony giles on 10-08-2024 pH (U) 6.0 [pH] 5.0 - 8.0 [facility] Urine sediment bacteria coun t by microscopy (number/high power field)Ordered By: Tony Quintana on 10-08-2024 Bacteria LM.HPF (Urine sed) [#/Area] 0 /[HPF] None Seen [facility] Urine specific gravity measu rementOrdered By: Tony Quintana on 10-08-2024 Specific gravity (U) [Rel density] 1.015 1.002-1.030 [facility] Urine urobilinogen measureme ntOrdered By: Tony Quintana on 10-08-2024 Urobilinogen Ql (U) Normal mg/dl Normal [facility] White blood cell (WBC) count Ordered By: Tony Quintana on 10-08-2024 WBC (Bld) [#/Vol] 9.2 10*3/uL 4.4-11.0 [facility] White blood cell countOrdere d By: Tony Quintana on 10-08-2024 White blood cell count 0 SEEN /hpf 0-5 [facility] Oncology Visit Reporton Oncology Visit Report [facility] [address] [place] [id number] OFFICE VISIT Date of Service: 10/06/24 1026 MR#: [id number] Acct: [id number] Name: GINETTE MACKENZIE Rep #: [id number] : 1960 From: Bar Isbell MD Age/Sex: 64/F Location: [facility] Status: Signed HPI Subjective Date of Service [...] is no family history of bleeding disorders [facility] Medical History (Updated 10/06/24 @ 10:58 by [...] laminectomy History of laparoscopic-assisted vaginal hysterectomy (06/04/18) Bryan teeth extracted History of cervical polypectomy History [...] years. N (more content not included)... Normal [facility] L/S Spine Min 4 Viewson L/S Spine Min 4 Views [facility] [address] [place], [place] [address] L/S Spine Min 4 Views MR#: [id number] Acct: [id number] Name: GINETTE MACKENZIE R Rep #: [id number] : 1960 F 64 From: Jorge Kendall MD PCP: Dr. Win Matos MD Status: REG CLI Study: L/S Spine Min 4 Views Date of Exam: 10/05/24 Exam# [id number] Ordering Dr: Javi Lenz MD PROCEDURE: L/S [...] Views IMPRESSION: Lumbar spine degeneration Reading Location: [place] [address] CC: Dr. Javi Lenz MD; Dr. Win Matos MD Management Manager: Signed Normal [facility] Sinus/Facial Boneon 10-06-19 Sinus/Facial Bone [facility] [address] [place] [address] Sinus/Facial Bone MR#: [id number] Acct: [id number] Name: GINETTE MACKENZIE R Rep #: [id number] : 1960 F 64 From: Jose Alberto Rome PCP: Dr. Win Matos MD Status: REG CLI Study: Sinus/Facial Bone Date of Exam: 10/05/24 Exam# [id number] Ordering Dr: Javi Lenz MD PROCEDURE: SINUS/FACIAL [...] mGy DLP: 731.11 mGycm COMPARISON: None. FINDINGS: [id number] degenerative changes of the visualized portions of [...] 2. Additional findings as noted. Reading Location: [place] [address] CC: Dr. Javi Lenz MD; Dr. Win Matos MD Management Manager: Signed Normal [facility] Orthopedic Visit Reporton Orthopedic Visit Report [facility] [address] [place] [address] OFFICE VISIT Date of Service: 10/04/24 MR#: [id number] Acct: [id number] Name: GINETTE MACKENZIE Rep #: [id number] : 1960 Provider: Dr. Abisai neil DO Age/Sex: 64/F Location: [facility] Status: Signed Intake Vital Signs 09/30/24 09:06 [...] (Updated 10/04/24 @ 09:[address] Abisai Roman, DO) PONV (postoperative nausea and vomiting) Arthritis Easy bruising Back pain Gastric reflux Non-smoker Cardiology follow-up encounter Postoperative primary hypothyroidism Thyroid cancer COVID-19 virus detected (01/2020) Obesity Essential hypertension Endometrial hyperplasia without atypia, simple Daytime somnolence Peripheral neuropathy Bigeminy Premature ventricular contractions Postmenopausal bleeding Surgical History Status post laminectomy History of laparoscopic-assisted vaginal hysterectomy (06/04/18) Bryan teeth extracted History of cervical polypectomy History [...] Translation: 1 (more content not included)... Normal [facility] Absolute lymphocyte countOrd ered By: Bar Akilah on 09-30-2024 Lymphocytes Auto (Unsp spec) [#/Vol] 1.37 10*3/uL 0.83-4.51 [facility] Absolute neutrophil countOrd ered By: [facility] Akilah on 09-30-2024 Neutrophils (Bld) [#/Vol] 3.6 10*3/uL 2.0-7.7 [facility] Activated partial thrombopla stin time (aPTT) in platelet poor plasma by coagulation aOrdered By: [facility] Akilah on 09-30-2024 aPTT Coag (PPP) [Time] 26.1 s 24.1-36.2 [facility] Automated lymphocyte count a s percentage of total leukocytesOrdered By: Bar Isbell on 09-30-2024 Lymphocytes/100 WBC Auto (Unsp spec) 24.0 % 19-41 [facility] Basophil percentageOrdered B y: Monroebishop Isbell on 09-30-2024 Basophils/100 WBC (Bld) 0.9 % 0-1 [facility] CBC W/Diff, Automatedon 09-06 Absolute Lymph 1.37 X10 3/uL Normal 0.83-4.51 [facility] Comment on above: Performed By: #### L 501.9520, L506.0400 #### [facility] [address] [place], [address] Absolute Neut 3.6 X10 3/uL Normal 2.0-7.7 [facility] Comment on above: Performed By: #### L [id number], L506.0400 #### [facility] [address] [place], [address] Basophils/100 WBC (Bld) 0.9 % Normal 0-1 [facility] Comment on above: Performed By: #### L [id number], L506.0400 #### [facility] [address] [place], [address] Eosinophils/100 WBC (Bld) 2.8 % Normal 0-5 [facility] Comment on above: Performed By: #### L [id number], L506.0400 #### [facility] [address] [place], [address] Erythrocyte distribution width (RBC) [Ratio] 12.7 % Normal 11.6-14.6 [facility] Comment on above: Performed By: #### L [id number], L506.0400 #### [facility] [address] [place], [address] Hematocrit (Bld) [Volume fraction] 38.4 % Normal 37-47 [facility] Comment on above: Performed By: #### L [id number], L506.0400 #### [facility] [address] [place], [address] Hemoglobin (Bld) [Mass/Vol] 12.7 g/dL Normal 12.0-15.0 [facility] Comment on above: Performed By: #### L [id number], L506.0400 #### [facility] [address] [place], [address] IG% 0.400 Normal 0.0-0.9 [facility] Comment on above: Result Comment: IG% - Immature Granulocytes (promyelocytes, myelocytes and metamyelocytes) > 1% indicates that a LEFT SHIFT is Present. Performed By: #### L 501.9520, L506.0400 #### [facility] [address] [place], [address] Lymphocytes/100 WBC (Bld) 24.0 % Normal 19-41 [facility] Comment on above: Performed By: #### L [id number], L506.0400 #### [facility] [address] [place], [address] MCH (RBC) [Entitic mass] 28.6 pg Normal 27.0-32.0 [facility] Comment on above: Performed By: #### L [id number], L506.0400 #### [facility] [address] [place], [address] MCHC (RBC) [Mass/Vol] 33.1 g/dL Normal 32-36 [facility] Comment on above: Performed By: #### L 501.9520, L506.0400 #### [facility] [address] [place], [address] MCV (RBC) [Entitic vol] 86.5 fL Normal 81-99 [facility] Comment on above: Performed By: #### L [id number], L506.0400 #### [facility] [address] [place], [address] Monocytes/100 WBC (Bld) 9.1 % Normal 0-10 [facility] Comment on above: Performed By: #### L [id number], L506.0400 #### [facility] [address] [place], [address] Neutrophils/100 WBC (Bld) 62.8 % Normal 47-70 [facility] Comment on above: Performed By: #### L [id number], L506.0400 #### [facility] [address] [place], [address] Nucleated RBC (Bld) [#/Vol] 0 10*3/uL Normal 0-5 [facility] Comment on above: Performed By: #### L [id number], L506.0400 #### [facility] [address] [place], [address] Platelet mean volume (Bld) [Entitic vol] 9.9 fL Normal 6.2-12.0 [facility] Comment on above: Performed By: #### L 501.9520, L506.0400 #### [facility] [address] [place], [address] Platelets (Bld) [#/Vol] 236 10*3/uL Normal 150-450 [facility] Comment on above: Performed By: #### L 501.9520, L506.0400 #### [facility] [address] [place], [address] RBC (Bld) [#/Vol] 4.44 10*6/uL Normal 4.2-5.4 [facility] Comment on above: Performed By: #### L [id number], L506.0400 #### [facility] [address] [place], [address] RDW SD 39.7 fl Normal 35.1-43.9 [facility] Comment on above: Performed By: #### L 501.9520, L506.0400 #### [facility] [address] [place], [address] WBC (Bld) [#/Vol] 5.7 10*3/uL Normal 4.4-11.0 [facility] Comment on above: Performed By: #### L [id number], L506.0400 #### [facility] [address] [place], [address] Eosinophil percentageOrdered By: Bar Isbell on 09-30-2024 Eosinophils/100 WBC (Bld) 2.8 % 0-5 [facility] Erythrocyte distribution wid th ratioOrdered By: Bar Isbell on 09-30-2024 Erythrocyte distribution width (RBC) [Ratio] 12.7 % 11.6-14.6 [facility] Erythrocyte distribution wid th standard deviationOrdered By: Bar Isbell on 09-30-2024 Erythrocyte distribution width (RBC) [Ratio] 39.7 fl 35.1-43.9 [facility] Hematocrit Auto (Bld) [Volum e fraction]Ordered By: Bar Isbell on 09-30-2024 Hematocrit (Bld) [Volume fraction] 38.4 % 37-47 [facility] Hemoglobin measurementOrdere d By: Bar Isbell on 09-30-2024 Hemoglobin (Bld) [Mass/Vol] 12.7 g/dL 12.0-15.0 [facility] Immature granulocytes/100 WB C Auto (Bld)Ordered By: Bar Isbell on 09-30-2024 Immature granulocytes/100 WBC (Bld) 0.400 % 0.0-0.9 [facility] Comment on above: IG% - Immature Granu locytes (promyelocytes, myelocytes and metamyelocytes) > 1% indicates that a LEFT SHIFT is Present. International normalized rat io (INR) calculationOrdered By: Bar Isbell on 09-30-2024 INR Coag (Bld) [Relative time] 0.9 {INR} [facility] MCV (mean corpuscular volume ) determinationOrdered By: [facility] Is[facility] on 09-30-2024 MCV (RBC) [Entitic vol] 86.5 fL 81-99 [facility] Mean corpuscular hemoglobin (MCH) determinationOrdered By: [facility] Akilah on 09-30-2024 MCH (RBC) [Entitic mass] 28.6 pg 27.0-32.0 [facility] Mean corpuscular hemoglobin concentration (MCHC) determinationOrdered By: [facility] Is[facility] on 09-30-2024 MCHC (RBC) [Mass/Vol] 33.1 g/dL 32-36 [facility] Mean platelet volume determi nationOrdered By: Bar Isbell on 09-30-2024 Platelet mean volume (Bld) [Entitic vol] 9.9 fL 6.2-12.0 [facility] Monocyte percentageOrdered B y: aBr Isbell on 09-30-2024 Monocytes/100 WBC (Bld) 9.1 % 0-10 [facility] Neutrophil percentageOrdered By: [facility] Is[facility] on 09-30-2024 Neutrophils/100 WBC (Bld) 62.8 % 47-70 [facility] Nucleated red blood cell per centageOrdered By: [facility] Is[facility] on 09-30-2024 Nucleated RBC/100 WBC (Bld) [Ratio] 0 % 0-5 [facility] Oncology Visit Reporton 06-2 Oncology Visit Report [facility] [place] [address] OFFICE VISIT Date of Service: 09/30/24 0858 MR#: [id number] Acct: [id number] Name: GINETTE MACKENZIE Rep #: [id number] : 1960 From: Bar Isbell MD Age/Sex: 64/F Location: [facility] Status: Signed HPI Subjective Date of Service [...] is no family history of bleeding disorders [facility] Medical History (Updated 09/30/24 @ 09:29 by [...] laminectomy History of laparoscopic-assisted vaginal hysterectomy (06/04/18) Bryan teeth extracted History of cervical polypectomy History [...] valsartan 320 (more content not included)... Normal [facility] Partial Thromboplast Timeon 09-30-2024 aPTT Coag (Bld) [Time] 26.1 s Normal 24.1-36.2 [facility] Comment on above: Performed By: #### L 501.9520, L506.0400 #### [facility] [address] [place], [address] Platelet countOrdered By: Darrell Isbell on 09-30-2024 Platelets (Bld) [#/Vol] 236 10*3/uL 150-450 [facility] Prothrombin Time w/INRon INR Coag (PPP) [Relative time] 0.9 {INR} Normal [facility] Comment on above: Performed By: #### L 501.9520, L506.0400 #### [facility] [address] [place], [address] PT Coag (PPP) [Time] 12.8 s Normal 11.7-14.9 [facility] Comment on above: Performed By: #### L 501.9520, L506.0400 #### [facility] [address] [place], [address] Prothrombin timeOrdered By: Bar Isbell on 09-30-2024 PT Coag (PPP) [Time] 12.8 s 11.7-14.9 [facility] RBC Auto (Bld) [#/Vol]Ordere d By: Bar Isbell on 09-30-2024 RBC (Bld) [#/Vol] 4.44 10*6/uL 4.2-5.4 [facility] White blood cell (WBC) count Ordered By: Bar Isbell on 09-30-2024 WBC (Bld) [#/Vol] 5.7 10*3/uL 4.4-11.0 [facility] Absolute lymphocyte countOrd ered By: Kristin Mckay on 09-02-2024 Lymphocytes Auto (Unsp spec) [#/Vol] 1.26 10*3/uL 0.83-4.51 [facility] Absolute neutrophil countOrd ered By: [facility] Nely on 09-02-2024 Neutrophils (Bld) [#/Vol] 2.9 10*3/uL 2.0-7.7 [facility] Anion gap in Serum or Plasma Ordered By: Kristindarrell Mckay on 09-02-2024 Anion gap [Moles/Vol] 11 mmol/L 5-15 [facility] Automated lymphocyte count a s percentage of total leukocytesOrdered By: Kristindarrell Mckay on 09-02-2024 Lymphocytes/100 WBC Auto (Unsp spec) 25.4 % 19-41 [facility] BUN/creatinine ratioOrdered By: [facility] Nely on 09-02-2024 Urea nitrogen/Creatinine [Mass ratio] 22.0 mg/mg High 10-20 [facility] Basophil percentageOrdered B y: Kristin Nely on 09-02-2024 Basophils/100 WBC (Bld) 1.2 % High 0-1 [facility] Bilirubin, totalOrdered By: Kristindarrell Mckay on 09-02-2024 Bilirubin [Mass/Vol] 0.38 mg/dL 0.00-1.30 [facility] CBC W/Diff, Automatedon 08-06 Absolute Lymph 1.26 X10 3/uL Normal 0.83-4.51 [facility] Comment on above: Performed By: #### L 501.9520, L506.0400 #### [facility] [address] [place], [address] Absolute Neut 2.9 X10 3/uL Normal 2.0-7.7 [facility] Comment on above: Performed By: #### L 501.9520, L506.0400 #### [facility] [address] [place], [address] Basophils/100 WBC (Bld) 1.2 % High 0-1 [facility] Comment on above: Performed By: #### L 501.9520, L506.0400 #### [facility] [address] [place], [address] Eosinophils/100 WBC (Bld) 2.8 % Normal 0-5 [facility] Comment on above: Performed By: #### L 501.9520, L506.0400 #### [facility] [address] [place], [address] Erythrocyte distribution width (RBC) [Ratio] 12.9 % Normal 11.6-14.6 [facility] Comment on above: Performed By: #### L 501.9520, L506.0400 #### [facility] [address] [place], [address] Hematocrit (Bld) [Volume fraction] 37.1 % Normal 37-47 [facility] Comment on above: Performed By: #### L [id number], L506.0400 #### [facility] [address] [place], [address] Hemoglobin (Bld) [Mass/Vol] 12.4 g/dL Normal 12.0-15.0 [facility] Comment on above: Performed By: #### L 501.9520, L506.0400 #### [facility] [address] [place], [address] IG% 0.400 Normal 0.0-0.9 [facility] Comment on above: Result Comment: IG% - Immature Granulocytes (promyelocytes, myelocytes and metamyelocytes) > 1% indicates that a LEFT SHIFT is Present. Performed By: #### L 501.9520, L506.0400 #### [facility] [address] [place], [address] Lymphocytes/100 WBC (Bld) 25.4 % Normal 19-41 [facility] Comment on above: Performed By: #### L 501.9520, L506.0400 #### [facility] [address] [place], [address] MCH (RBC) [Entitic mass] 29.2 pg Normal 27.0-32.0 [facility] Comment on above: Performed By: #### L 501.9520, L506.0400 #### [facility] [address] [place], [address] MCHC (RBC) [Mass/Vol] 33.4 g/dL Normal 32-36 [facility] Comment on above: Performed By: #### L 501.9520, L506.0400 #### [facility] [address] [place], [address] MCV (RBC) [Entitic vol] 87.3 fL Normal 81-99 [facility] Comment on above: Performed By: #### L 501.9520, L506.0400 #### [facility] [address] [place], [address] Monocytes/100 WBC (Bld) 11.5 % High 0-10 [facility] Comment on above: Performed By: #### L 501.9520, L506.0400 #### [facility] [address] [place], [address] Neutrophils/100 WBC (Bld) 58.7 % Normal 47-70 [facility] Comment on above: Performed By: #### L 501.9520, L506.0400 #### [facility] [address] [place], [address] Nucleated RBC (Bld) [#/Vol] 0 10*3/uL Normal 0-5 [facility] Comment on above: Performed By: #### L 501.9520, L506.0400 #### [facility] [address] [place], [address] Platelet mean volume (Bld) [Entitic vol] 10.8 fL Normal 6.2-12.0 [facility] Comment on above: Performed By: #### L 501.9520, L506.0400 #### [facility] [address] [place], [address] Platelets (Bld) [#/Vol] 278 10*3/uL Normal 150-450 [facility] Comment on above: Performed By: #### L [id number], [id number] #### [facility] [address] [place], [address] RBC (Bld) [#/Vol] 4.25 10*6/uL Normal 4.2-5.4 [facility] Comment on above: Performed By: #### L [id number], [id number] #### [facility] [address] [place], [address] RDW SD 40.7 fl Normal 35.1-43.9 [facility] Comment on above: Performed By: #### L [id number], [id number] #### [facility] [address] [place], [address] WBC (Bld) [#/Vol] 5.0 10*3/uL Normal 4.4-11.0 [facility] Comment on above: Performed By: #### L [id number], [id number] #### [facility] [address] [place], [address] Carbon dioxide, total [Moles /volume] in Central venous bloodOrdered By: Kristin Mckay on 09-02-2024 CO2 [Moles/Vol] 25.5 mmol/L 21.0-32.0 [facility] Chloride assayOrdered By: Shweta Mckay on 09-02-2024 Chloride [Moles/Vol] 104 mmol/L 98-108 [facility] Comprehensive Metabolic Prof ilon 09-02-2024 Albumin [Mass/Vol] 4.0 g/dL Normal 3.4-4.8 [facility] Comment on above: Performed By: #### L [id number], [id number] #### [facility] [address] [place], [address] Albumin/Globulin [Mass ratio] 1.5 {ratio} Normal 0.9-2.4 [facility] Comment on above: Performed By: #### L [id number], [id number] #### [facility] [address] [place], [address] ALK PHOS 65 U/L Normal 35-104 [facility] Comment on above: Performed By: #### L [id number], [id number] #### [facility] [address] [place], [address] ALT [Catalytic activity/Vol] 14 U/L Normal <=34 [facility] Comment on above: Performed By: #### L [id number], [id number] #### [facility] [address] [place], [address] AST [Catalytic activity/Vol] 20 U/L Normal <=31 [facility] Comment on above: Performed By: #### L [id number], [id number] #### [facility] [address] [place], [address] Bilirubin [Mass/Vol] 0.38 mg/dL Normal 0.00-1.30 [facility] Comment on above: Performed By: #### L [id number], [id number] #### [facility] [address] [place], [address] BUN/CRE 22.0 RATIO High 10-20 [facility] Comment on above: Performed By: #### L [id number], [id number] #### [facility] [address] [place], [address] Calcium [Mass/Vol] 9.6 mg/dL Normal 7.6-11.0 [facility] Comment on above: Performed By: #### L [id number], [id number] #### [facility] [address] [place], [address] Chloride [Moles/Vol] 104 mmol/L Normal 98-108 [facility] Comment on above: Performed By: #### L [id number], [id number] #### [facility] [address] [place], [address] CO2 [Moles/Vol] 25.5 mmol/L Normal 21.0-32.0 [facility] Comment on above: Performed By: #### L [id number], [id number] #### [facility] [address] [place], [address] Creatinine [Mass/Vol] 0.98 mg/dL Normal 0.70-1.20 [facility] Comment on above: Performed By: #### L [id number], [id number] #### [facility] [address] [place], [address] GAP 11 Normal 5-15 [facility] Comment on above: Performed By: #### L [id number], [id number] #### [facility] [address] [place], [address] GFR/1.73 sq M.predicted among non-blacks MDRD (S/P/Bld) [Vol rate/Area] 65 mL/min/{1.73_m2} Normal >60 [facility] Comment on above: Result Comment: mL/m in/1.73m2 CKD-EPI Creatinine Equation (2020) Performed By: #### L [id number], [id number] #### [facility] [address] [place], [address] Globulin (S) [Mass/Vol] 2.7 g/dL Normal 2.2-4.2 [facility] Comment on above: Performed By: #### L [id number], [id number] #### [facility] [address] [place], [address] Glucose [Mass/Vol] 104 mg/dL High 70-99 [facility] Comment on above: Performed By: #### L [id number], [id number] #### [facility] [address] [place], [address] Potassium [Moles/Vol] 4.0 mmol/L Normal 3.3-5.1 [facility] Comment on above: Performed By: #### L [id number], [id number] #### [facility] [address] [place], [address] Sodium [Moles/Vol] 140 mmol/L Normal 133-145 [facility] Comment on above: Performed By: #### L [id number], [id number] #### [facility] [address] [place], [address] T PROT 6.8 g/dL Normal 5.9-8.4 [facility] Comment on above: Performed By: #### L [id number], [id number] #### [facility] [address] [place], [address] Urea nitrogen [Mass/Vol] 22 mg/dL High 4-19 [facility] Comment on above: Performed By: #### L [id number], [id number] #### [facility] [address] [place], [address] Eosinophil percentageOrdered By: Kristin Mckay on 09-02-2024 Eosinophils/100 WBC (Bld) 2.8 % 0-5 [place] [facility] Erythrocyte distribution wid th ratioOrdered By: Kristin Mckay on 09-02-2024 Erythrocyte distribution width (RBC) [Ratio] 12.9 % 11.6-14.6 [facility] Erythrocyte distribution wid th standard deviationOrdered By: Kristindarrell Mckay on 09-02-2024 Erythrocyte distribution width (RBC) [Ratio] 40.7 fl 35.1-43.9 [facility] Glomerular filtration rate ( GFR) estimation/1.73 sq m using serum, plasma, or whole bOrdered By: Kristin Mckay on 09-02-2024 GFR/1.73 sq M.predicted among non-blacks MDRD (S/P/Bld) [Vol rate/Area] 65 mL/min/{1.73_m2} >60 [facility] Comment on above: mL/min/1.73m2 CKD-EP I Creatinine Equation (2020) Hematocrit Auto (Bld) [Volum e fraction]Ordered By: Kristindarrell Mckay on 09-02-2024 Hematocrit (Bld) [Volume fraction] 37.1 % 37-47 [facility] Hemoglobin measurementOrdere d By: Kristin Mckay on 09-02-2024 Hemoglobin (Bld) [Mass/Vol] 12.4 g/dL 12.0-15.0 [facility] Immature granulocytes/100 WB C Auto (Bld)Ordered By: Kristin Mckay on 09-02-2024 Immature granulocytes/100 WBC (Bld) 0.400 % 0.0-0.9 [facility] Comment on above: IG% - Immature Granu locytes (promyelocytes, myelocytes and metamyelocytes) > 1% indicates that a LEFT SHIFT is Present. Laboratory - Chemistry and C hemistry - challengeOrdered By: Kristin Mckay on 09-02-2024 AST [Catalytic activity/Vol] 20 U/L <32 [facility] MCV (mean corpuscular volume ) determinationOrdered By: Kristin Mckay on 09-02-2024 MCV (RBC) [Entitic vol] 87.3 fL 81-99 [facility] Mean corpuscular hemoglobin (MCH) determinationOrdered By: Kristindarrell Mckay 09-02-2024 MCH (RBC) [Entitic mass] 29.2 pg 27.0-32.0 [facility] Mean corpuscular hemoglobin concentration (MCHC) determinationOrdered By: Kristin Mckay on 09-02-2024 MCHC (RBC) [Mass/Vol] 33.4 g/dL 32-36 [facility] Mean platelet volume determi nationOrdered By: Kristin Mckay on 09-02-2024 Platelet mean volume (Bld) [Entitic vol] 10.8 fL 6.2-12.0 [facility] Monocyte percentageOrdered B y: Kristin Mckay on 09-02-2024 Monocytes/100 WBC (Bld) 11.5 % High 0-10 [facility] Neutrophil percentageOrdered By: Kristin Mckay on 09-02-2024 Neutrophils/100 WBC (Bld) 58.7 % 47-70 [facility] Nucleated red blood cell per centageOrdered By: Kristin Mckay on 09-02-2024 Nucleated RBC/100 WBC (Bld) [Ratio] 0 % 0-5 [facility] Platelet countOrdered By: Shweta Mckay on 09-02-2024 Platelets (Bld) [#/Vol] 278 10*3/uL 150-450 [facility] Potassium measurement (mass/ volume)Ordered By: Kristin Mckay on 09-02-2024 Potassium (Unsp spec) [Mass/Vol] 4.0 mmol/L 3.3-5.1 [facility] RBC Auto (Bld) [#/Vol]Ordere d By: Kristin Mckay on 09-02-2024 RBC (Bld) [#/Vol] 4.25 10*6/uL 4.2-5.4 [facility] Serum creatinine measurement (mass/volume)Ordered By: Kristin Mckay on 09-02-2024 Creatinine [Mass/Vol] 0.98 mg/dL 0.70-1.20 [facility] Serum globulin measurementOr dered By: Kristin Mckay on 09-02-2024 Globulin (S) [Mass/Vol] 2.7 g/dL 2.2-4.2 [facility] Serum glucose measurement (m ass/volume)Ordered By: Kristin Mckay on 09-02-2024 Glucose [Mass/Vol] 104 mg/dL High 70-99 [facility] Serum or plasma alanine avery otransferase (ALT) measurementOrdered By: Kristin Mckay on 09-02-2024 ALT [Catalytic activity/Vol] 14 U/L <35 [facility] Serum or plasma albumin vazquez urement (mass/volume)Ordered By: Kristin Mckay on 09-02-2024 Albumin [Mass/Vol] 4.0 g/dL 3.4-4.8 [facility] Serum or plasma albumin/glob ulin mass ratioOrdered By: Kristin Mckay on 09-02-2024 Albumin/Globulin [Mass ratio] 1.5 {ratio} 0.9-2.4 [facility] Serum or plasma alkaline glen sphatase measurementOrdered By: Kristin Mkcay on 09-02-2024 ALP [Catalytic activity/Vol] 65 U/L 35-104 [facility] Serum or plasma calcium vazquez urement (mass/volume)Ordered By: Kristin Mckay on 09-02-2024 Calcium [Mass/Vol] 9.6 mg/dL 7.6-11.0 [facility] Serum or plasma urea nitroge n measurement (mass/volume)Ordered By: Kristin Mckay on 09-02-2024 Urea nitrogen [Mass/Vol] 22 mg/dL High 4-19 [facility] Sodium levelOrdered By: Mark Mckay on 09-02-2024 Sodium [Moles/Vol] 140 mmol/L 133-145 [facility] Total proteinOrdered By: Esteban Mckay on 09-02-2024 Protein [Mass/Vol] 6.8 g/dL 5.9-8.4 [facility] White blood cell (WBC) count Ordered By: Kristin Mckay on 09-02-2024 WBC (Bld) [#/Vol] 5.0 10*3/uL 4.4-11.0 [facility] Absolute lymphocyte countOrd ered By: Win Matos on 07-14-2024 Lymphocytes Auto (Unsp spec) [#/Vol] 2.27 10*3/uL 0.83-4.51 [facility] Absolute neutrophil countOrd ered By: Win Matos on 07-14-2024 Neutrophils (Bld) [#/Vol] 4.4 10*3/uL 2.0-7.7 [facility] Anion gap in Serum or Plasma Ordered By: Win Carlo on 07-14-2024 Anion gap [Moles/Vol] 11 mmol/L 5- [facility] Automated lymphocyte count a s percentage of total leukocytesOrdered By: Win Carlo on 07-14-2024 Lymphocytes/100 WBC Auto (Unsp spec) 29.6 % - [facility] BUN/creatinine ratioOrdered By: Win Matos on 07-14-2024 Urea nitrogen/Creatinine [Mass ratio] 26.1 mg/mg High 10- [facility] Basophil percentageOrdered B y: Win Carlo on 07-14-2024 Basophils/100 WBC (Bld) 0.9 % 0-1 [facility] Bilirubin, totalOrdered By: Win Carlo on 07-14-2024 Bilirubin [Mass/Vol] 0.29 mg/dL 0.00-1.30 [facility] CBC W/Diff, Automatedon Absolute Lymph 2.27 X10 3/uL Normal 0.83-4.51 [facility] Comment on above: Performed By: #### L [id number], L100.0100, [id number] #### [facility] [address] [place], [address] Absolute Neut 4.4 X10 3/uL Normal 2.0-7.7 [facility] Comment on above: Performed By: #### L [id number], L100.0100, [id number] #### [facility] [address] [place], [address] Basophils/100 WBC (Bld) 0.9 % Normal 0-1 [facility] Comment on above: Performed By: #### L [id number], L100.0100, [id number] #### [facility] [address] [place], [address] Eosinophils/100 WBC (Bld) 1.6 % Normal 0-5 [facility] Comment on above: Performed By: #### L [id number], L100.0100, [id number] #### [facility] [address] [place], [address] Erythrocyte distribution width (RBC) [Ratio] 13.8 % Normal 11.6-14.6 [facility] Comment on above: Performed By: #### L [id number], L100.0100, [id number] #### [facility] [address] [place], [address] Hematocrit (Bld) [Volume fraction] 35.7 % Low 37-47 [facility] Comment on above: Performed By: #### L [id number], L100.0100, [id number] #### [facility] [address] [place], [address] Hemoglobin (Bld) [Mass/Vol] 11.8 g/dL Low 12.0-15.0 [facility] Comment on above: Performed By: #### L [id number], L100.0100, [id number] #### [facility] [address] [place], [address] IG% 0.400 Normal 0.0-0.9 [facility] Comment on above: Result Comment: IG% - Immature Granulocytes (promyelocytes, myelocytes and metamyelocytes) > 1% indicates that a LEFT SHIFT is Present. Performed By: #### L [id number], L100.0100, [id number] #### [facility] [address] [place], [address] Lymphocytes/100 WBC (Bld) 29.6 % Normal 19-41 [facility] Comment on above: Performed By: #### L [id number], L100.0100, [id number] #### [facility] [address] [place], [address] MCH (RBC) [Entitic mass] 29.5 pg Normal 27.0-32.0 [facility] Comment on above: Performed By: #### L [id number], L100.0100, [id number] #### [facility] [address] [place], [address] MCHC (RBC) [Mass/Vol] 33.1 g/dL Normal 32-36 [facility] Comment on above: Performed By: #### L [id number], L100.0100, [id number] #### [facility] [address] [place], [address] MCV (RBC) [Entitic vol] 89.3 fL Normal 81-99 [facility] Comment on above: Performed By: #### L [id number], L100.0100, [id number] #### [facility] [address] [place], [address] Monocytes/100 WBC (Bld) 10.0 % Normal 0-10 [facility] Comment on above: Performed By: #### L [id number], L100.0100, [id number] #### [facility] [address] [place], [address] Neutrophils/100 WBC (Bld) 57.5 % Normal 47-70 [facility] Comment on above: Performed By: #### L [id number], L100.0100, [id number] #### [facility] [address] [place], [address] Nucleated RBC (Bld) [#/Vol] 0 10*3/uL Normal 0-5 [facility] Comment on above: Performed By: #### L [id number], L100.0100, [id number] #### [facility] [address] [place], [address] Platelet mean volume (Bld) [Entitic vol] 10.2 fL Normal 6.2-12.0 [facility] Comment on above: Performed By: #### L [id number], L100.0100, [id number] #### [facility] [address] [place], [address] Platelets (Bld) [#/Vol] 264 10*3/uL Normal 150-450 [facility] Comment on above: Performed By: #### L [id number], L100.0100, [id number] #### [facility] [address] [place], [address] RBC (Bld) [#/Vol] 4.00 10*6/uL Low 4.2-5.4 [facility] Comment on above: Performed By: #### L [id number], L100.0100, [id number] #### [facility] [address] [place], [address] RDW SD 44.4 fl High 35.1-43.9 [facility] Comment on above: Performed By: #### L [id number], L100.0100, [id number] #### [facility] [address] [place], [address] WBC (Bld) [#/Vol] 7.7 10*3/uL Normal 4.4-11.0 [facility] Comment on above: Performed By: #### L [id number], L100.0100, [id number] #### [facility] [address] [place], [address] Carbon dioxide, total [Moles /volume] in Central venous bloodOrdered By: Win Matos on 07-14-2024 CO2 [Moles/Vol] 27.2 mmol/L 21.0-32.0 [facility] Chloride assayOrdered By: Maldonado Matos on 07-14-2024 Chloride [Moles/Vol] 102 mmol/L 98-108 [facility] Comprehensive Metabolic Prof ilon 07-14-2024 Albumin [Mass/Vol] 4.1 g/dL Normal 3.4-4.8 [facility] Comment on above: Performed By: #### L [id number], L100.0100, [id number] #### [facility] [address] [place], [address] Albumin/Globulin [Mass ratio] 1.6 {ratio} Normal 0.9-2.4 [facility] Comment on above: Performed By: #### L [id number], L100.0100, [id number] #### [facility] [address] [place], [address] ALK PHOS 60 U/L Normal 35-104 [facility] Comment on above: Performed By: #### L [id number], L100.0100, [id number] #### [facility] [address] [place], [address] ALT [Catalytic activity/Vol] 18 U/L Normal <=34 [facility] Comment on above: Performed By: #### L [id number], L100.0100, [id number] #### [facility] [address] [place], [address] AST [Catalytic activity/Vol] 16 U/L Normal <=31 [facility] Comment on above: Performed By: #### L [id number], L100.0100, [id number] #### [facility] [address] [place], [address] Bilirubin [Mass/Vol] 0.29 mg/dL Normal 0.00-1.30 [facility] Comment on above: Performed By: #### L [id number], L100.0100, [id number] #### [facility] [address] [place], [address] BUN/CRE 26.1 RATIO High 10-20 [facility] Comment on above: Performed By: #### L [id number], L100.0100, [id number] #### [facility] [address] [place], [address] Calcium [Mass/Vol] 9.6 mg/dL Normal 7.6-11.0 [facility] Comment on above: Performed By: #### L [id number], L100.0100, [id number] #### [facility] [address] [place], [address] Chloride [Moles/Vol] 102 mmol/L Normal 98-108 [facility] Comment on above: Performed By: #### L [id number], L100.0100, [id number] #### [facility] [address] [place], [address] CO2 [Moles/Vol] 27.2 mmol/L Normal 21.0-32.0 [facility] Comment on above: Performed By: #### L [id number], L100.0100, [id number] #### [facility] [address] [place], [address] Creatinine [Mass/Vol] 0.88 mg/dL Normal 0.70-1.20 [facility] Comment on above: Performed By: #### L [id number], L100.0100, [id number] #### [facility] [address] [place], [address] GAP 11 Normal 5-15 [facility] Comment on above: Performed By: #### L [id number], L100.0100, [id number] #### [facility] [address] [place], [address] GFR/1.73 sq M.predicted among non-blacks MDRD (S/P/Bld) [Vol rate/Area] 73 mL/min/{1.73_m2} Normal >60 [facility] Comment on above: Result Comment: mL/m in/1.73m2 CKD-EPI Creatinine Equation (2020) Performed By: #### L [id number], L100.0100, [id number] #### [facility] [address] [place], [address] Globulin (S) [Mass/Vol] 2.7 g/dL Normal 2.2-4.2 [facility] Comment on above: Performed By: #### L [id number], L100.0100, [id number] #### [facility] [address] [place], [address] Glucose [Mass/Vol] 81 mg/dL Normal 70-99 [facility] Comment on above: Performed By: #### L [id number], L100.0100, [id number] #### [facility] [address] [place], [address] Potassium [Moles/Vol] 3.8 mmol/L Normal 3.3-5.1 [facility] Comment on above: Performed By: #### L [id number], L100.0100, [id number] #### [facility] [address] [place], [address] Sodium [Moles/Vol] 140 mmol/L Normal 133-145 [facility] Comment on above: Performed By: #### L [id number], L100.0100, [id number] #### [facility] [address] [place], [address] T PROT 6.8 g/dL Normal 5.9-8.4 [facility] Comment on above: Performed By: #### L [id number], L100.0100, [id number] #### [facility] [address] [place], [address] Urea nitrogen [Mass/Vol] 23 mg/dL High 4-19 [facility] Comment on above: Performed By: #### L [id number], L100.0100, [id number] #### [facility] [address] [place], [place], [address] Eosinophil percentageOrdered By: Win Matos on 07-14-2024 Eosinophils/100 WBC (Bld) 1.6 % 0-5 [facility] Erythrocyte distribution wid th (RBC) [Ratio]Ordered By: Win Carlo on 07-14-2024 Erythrocyte distribution width (RBC) [Entitic vol] 44.4 fL High 35.1-43.9 [facility] Erythrocyte distribution wid th ratioOrdered By: Win Matos 07-14-2024 Erythrocyte distribution width (RBC) [Ratio] 13.8 % 11.6-14.6 [facility] Erythrocyte distribution wid th standard deviationOrdered By: Win Matos 07-14-2024 Erythrocyte distribution width (RBC) [Ratio] 44.4 fl High 35.1-43.9 [facility] GFR/1.73 sq M.predicted morris g non-blacks MDRD (S/P/Bld) [Vol rate/Area]Ordered By: Win Matos on 07-14-2024 Estimated GFR (MDRD) Non-Af Amer 73 >60 [facility] Comment on above: mL/min/1.73m2 CKD-EP I Creatinine Equation (2020) Glomerular filtration rate ( GFR) estimation/1.73 sq m using serum, plasma, or whole bOrdered By: Win Matos on 07-14-2024 GFR/1.73 sq M.predicted among non-blacks MDRD (S/P/Bld) [Vol rate/Area] 73 mL/min/{1.73_m2} >60 [facility] Comment on above: mL/min/1.73m2 CKD-EP I Creatinine Equation (2020) Hematocrit Auto (Bld) [Volum e fraction]Ordered By: Win Matos 07-14-2024 Hematocrit (Bld) [Volume fraction] 35.7 % Low 37-47 [facility] Hemoglobin measurementOrdere d By: iWn Matos on 07-14-2024 Hemoglobin (Bld) [Mass/Vol] 11.8 g/dL Low 12.0-15.0 [facility] Immature granulocytes/100 WB C Auto (Bld)Ordered By: Win Matos on 07-14-2024 Immature granulocytes/100 WBC (Bld) 0.400 % 0.0-0.9 [facility] Comment on above: IG% - Immature Granu locytes (promyelocytes, myelocytes and metamyelocytes) > 1% indicates that a LEFT SHIFT is Present. Laboratory - Chemistry and C hemistry - challengeOrdered By: Win Matos on 07-14-2024 AST [Catalytic activity/Vol] 16 U/L <32 [facility] Lymphocytes Auto (Unsp spec) [#/Vol]Ordered By: Win Matos on 07-14-2024 Lymphocytes (Bld) [#/Vol] 2.27 10*3/uL 0.83-4.51 [facility] Lymphocytes/100 WBC Auto (Un sp spec)Ordered By: Win Matos on 07-14-2024 Lymphocytes/100 WBC (Bld) 29.6 % 19-41 [facility] MCV (mean corpuscular volume ) determinationOrdered By: Win Matos 07-14-2024 MCV (RBC) [Entitic vol] 89.3 fL 81-99 [facility] Mean corpuscular hemoglobin (MCH) determinationOrdered By: Win Matos 07-14-2024 MCH (RBC) [Entitic mass] 29.5 pg 27.0-32.0 [facility] Mean corpuscular hemoglobin concentration (MCHC) determinationOrdered By: Win Matos 07-14-2024 MCHC (RBC) [Mass/Vol] 33.1 g/dL 32-36 [facility] Mean platelet volume determi nationOrdered By: Win Matos on 07-14-2024 Platelet mean volume (Bld) [Entitic vol] 10.2 fL 6.2-12.0 [facility] Monocyte percentageOrdered B y: Win Matos on 07-14-2024 Monocytes/100 WBC (Bld) 10.0 % 0-10 [facility] Neutrophil percentageOrdered By: Win Matos on 07-14-2024 Neutrophils/100 WBC (Bld) 57.5 % 47-70 [facility] Nucleated red blood cell per centageOrdered By: Win Matos on 07-14-2024 Nucleated RBC/100 WBC (Bld) [Ratio] 0 % 0-5 [facility] Platelet countOrdered By: Maldonado Matos on 07-14-2024 Platelets (Bld) [#/Vol] 264 10*3/uL 150-450 [facility] Potassium (Unsp spec) [Mass/ Vol]Ordered By: Win Matos on 07-14-2024 Potassium [Moles/Vol] 3.8 mmol/L 3.3-5.1 [facility] Potassium measurement (mass/ volume)Ordered By: Win Matos on 07-14-2024 Potassium (Unsp spec) [Mass/Vol] 3.8 mmol/L 3.3-5.1 [facility] RBC Auto (Bld) [#/Vol]Ordere d By: Win Matos on 07-14-2024 RBC (Bld) [#/Vol] 4.00 10*6/uL Low 4.2-5.4 [facility] Serum creatinine measurement (mass/volume)Ordered By: Win Matos on 07-14-2024 Creatinine [Mass/Vol] 0.88 mg/dL 0.70-1.20 [facility] Serum globulin measurementOr dered By: Win Matos 07-14-2024 Globulin (S) [Mass/Vol] 2.7 g/dL 2.2-4.2 [facility] Serum glucose measurement (m ass/volume)Ordered By: Win Matos 07-14-2024 Glucose [Mass/Vol] 81 mg/dL 70-99 [facility] Serum or plasma alanine avery otransferase (ALT) measurementOrdered By: Win Matos 07-14-2024 ALT [Catalytic activity/Vol] 18 U/L <35 [facility] Serum or plasma albumin vazquez urement (mass/volume)Ordered By: Wni Matos on 07-14-2024 Albumin [Mass/Vol] 4.1 g/dL 3.4-4.8 [facility] Serum or plasma albumin/glob ulin mass ratioOrdered By: Win Matos 07-14-2024 Albumin/Globulin [Mass ratio] 1.6 {ratio} 0.9-2.4 [facility] Serum or plasma alkaline glen sphatase measurementOrdered By: Win Matos on 07-14-2024 ALP [Catalytic activity/Vol] 60 U/L 35-104 [facility] Serum or plasma calcium vazquez urement (mass/volume)Ordered By: Win Matos on 07-14-2024 Calcium [Mass/Vol] 9.6 mg/dL 7.6-11.0 [facility] Serum or plasma urea nitroge n measurement (mass/volume)Ordered By: Win Matos on 07-14-2024 Urea nitrogen [Mass/Vol] 23 mg/dL High 4-19 [facility] Sodium levelOrdered By: Win Matos on 07-14-2024 Sodium [Moles/Vol] 140 mmol/L 133-145 [facility] TSH DL <= 0.005 mIU/L QnOrde red By: Win Matos on 07-14-2024 Thyroid Stimulating Hormone (TSH) 1.910 uIU/mL 0.300-4.200 [facility] TSH Qn 1.910 uIU/mL 0.300-4.200 [facility] Thyroid Stim Hormone (TSH)on 07-14-2024 TSH 1.910 uIU/mL Normal 0.300-4.200 [facility] Comment on above: Performed By: #### L [id number], L100.0100, [id number] #### [facility] [address] [place] [address], [address] Total proteinOrdered By: Win Matos on 07-14-2024 Protein [Mass/Vol] 6.8 g/dL 5.9-8.4 [facility] White blood cell (WBC) count Ordered By: Win Matos on 07-14-2024 WBC (Bld) [#/Vol] 7.7 10*3/uL 4.4-11.0 [facility] Thyroglobulin w/Anti-TG ABon 07-07-2024 Anti-TG AB < 1.0 Normal 0.0-0.9 [facility] Comment on above: Order Comment: Reaso n for Laboratory Test x Result Comment: Thyr oglobulin Antibody measured by Eileen Yenifer Methodology It should be noted that the presence of thyroglobulin antibodies may not be pathogenic nor diagnostic, especially at very low levels. The assay monogram operator has found that four percent of individuals without evidence of thyroid disease or autoimmunity will have positive TgAb levels up to 4 IU/mL. Performed By: #### L [id number], L506.0400 #### [facility] [address] [place], [place], [address] THYROGLOB QUANT < 0.1 Low 1.5-38.5 [facility] Comment on above: Order Comment: Reaso [...] quantitation is 0.1 ng/mL Thyroglobulin measured by [employer] Yenifer Immunometric Assay Performed at: [facility] [id number] Farm Helper: Louis Mariee PhD, Phone: [phone] Performed By: #### L [id number], L506.0400 #### [facility] [address] [place], [address] T4 Free Directon 07-06-2024 T4 FREE DIRECT 1.50 ng/dL High 0.76-1.46 [facility] Comment on above: Performed By: #### L [id number], [id number] #### [facility] [address] [place], [address] T4 freeOrdered By: Chaitanya Leblanc on 07-06-2024 Free T4 [Mass/Vol] 1.50 ng/dL High 0.76-1.46 [facility] TSH DL <= 0.005 mIU/L QnOrde red By: Chaitanya Leblanc on 07-06-2024 Thyroid Stimulating Hormone (TSH) 1.080 uIU/mL 0.300-4.200 [facility] TSH Qn 1.080 uIU/mL 0.300-4.200 [facility] Thyroglobulin Ab serumOrdere d By: Chaitanya Leblanc on 07-06-2024 Thyroglobulin Antibody < 1.0 IU/mL 0.0-0.9 [facility] Comment on above: Thyroglobulin Antibo dy measured by Eileen CoulterMethodologyIt should be noted that the presence of thyroglobulinantibodies may not be pathogenic nor diagnostic, especiallyat very low levels. The assay monogram operator has found thatfour percent of individuals without evidence of thyroiddisease or autoimmunity will have positive TgAb levels upto 4 IU/mL. Thyroglobulin serOrdered By: Chaitanya Leblanc on 07-06-2024 Thyroglobulin Level < 0.1 ng/mL Low 1.5-38.5 [facility] Comment on above: According to the [employer],the reference interval for Thyroglobulin (TG) should berelated to euthyroid patients and not for patients whounderwent thyroidectomy. TG reference intervals for thesepatients depend on the residual mass of the thyroid tissueleft after surgery. Establishing a post-operative baselineis recommended. The assay limit of quantitation is 0.1ng/mLThyroglobulin measured by Eileen [employer] ImmunometricAssayPerformed at: [facility] [id number] Director: Louis Mariee PhD, Phone: [phone] Thyroid Stim Hormone (TSH)on 07-06-2024 TSH 1.080 uIU/mL Normal 0.300-4.200 [facility] Comment on above: Performed By: #### L [id number], L506.0400 #### [facility] [address] [place] [address]. [place], [address] Absolute lymphocyte countOrd ered By: Kristin Mckay on 06-11-2024 Lymphocytes Auto (Unsp spec) [#/Vol] 1.62 10*3/uL 0.83-4.51 [facility] Absolute neutrophil countOrd ered By: Kristin Mckay on 06-11-2024 Neutrophils (Bld) [#/Vol] 4.2 10*3/uL 2.0-7.7 [facility] Anion gap in Serum or Plasma Ordered By: Kristin Mckay on 06-11-2024 Anion gap [Moles/Vol] 11 mmol/L 5-15 [facility] Automated lymphocyte count a s percentage of total leukocytesOrdered By: Kristin cMkay on 06-11-2024 Lymphocytes/100 WBC Auto (Unsp spec) 24.6 % 19-41 [facility] BUN/creatinine ratioOrdered By: Kristin Mckay on 06-11-2024 Urea nitrogen/Creatinine [Mass ratio] 20.4 mg/mg High 10-20 [facility] Basophil percentageOrdered B y: Kristin Mckay on 06-11-2024 Basophils/100 WBC (Bld) 0.9 % 0-1 [facility] Bilirubin, totalOrdered By: Kristin Mckay on 06-11-2024 Bilirubin [Mass/Vol] 0.36 mg/dL 0.00-1.30 [facility] CBC W/Diff, Automatedon Absolute Lymph 1.62 X10 3/uL Normal 0.83-4.51 [facility] Comment on above: Performed By: #### L [id number], L506.0400 #### [facility] [address] [facility] [place], [address] Absolute Neut 4.2 X10 3/uL Normal 2.0-7.7 [facility] Comment on above: Performed By: #### L [id number], [id number] #### [facility] [address] [place], [address] Basophils/100 WBC (Bld) 0.9 % Normal 0-1 [facility] Comment on above: Performed By: #### L [id number], [id number] #### [facility] [address] [place], [address] Eosinophils/100 WBC (Bld) 1.5 % Normal 0-5 [facility] Comment on above: Performed By: #### L [id number], [id number] #### [facility] [address] [place], [address] Erythrocyte distribution width (RBC) [Ratio] 13.8 % Normal 11.6-14.6 [facility] Comment on above: Performed By: #### L [id number], [id number] #### [facility] [address] [place], [address] Hematocrit (Bld) [Volume fraction] 37.4 % Normal 37-47 [facility] Comment on above: Performed By: #### L [id number], [id number] #### [facility] [address] [place], [address] Hemoglobin (Bld) [Mass/Vol] 12.4 g/dL Normal 12.0-15.0 [facility] Comment on above: Performed By: #### L [id number], [id number] #### [facility] [address] [place], [address] IG% 0.300 Normal 0.0-0.9 [facility] Comment on above: Result Comment: IG% - Immature Granulocytes (promyelocytes, myelocytes and metamyelocytes) > 1% indicates that a LEFT SHIFT is Present. Performed By: #### L [id number], L506.0400 #### [facility] [address] [place], [address] Lymphocytes/100 WBC (Bld) 24.6 % Normal 19-41 [facility] Comment on above: Performed By: #### L [id number], [id number] #### [facility] [address] [place], [address] MCH (RBC) [Entitic mass] 28.8 pg Normal 27.0-32.0 [facility] Comment on above: Performed By: #### L [id number], L506.0400 #### [facility] [address] [place], [address] MCHC (RBC) [Mass/Vol] 33.2 g/dL Normal 32-36 [facility] Comment on above: Performed By: #### L [id number], [id number] #### [facility] [address] [place], [address] MCV (RBC) [Entitic vol] 87.0 fL Normal 81-99 [facility] Comment on above: Performed By: #### L [id number], [id number] #### [facility] [address] [place], [address] Monocytes/100 WBC (Bld) 8.5 % Normal 0-10 [facility] Comment on above: Performed By: #### L [id number], [id number] #### [facility] [address] [place], [address] Neutrophils/100 WBC (Bld) 64.2 % Normal 47-70 [facility] Comment on above: Performed By: #### L [id number], [id number] #### [facility] [address] [place], [address] Nucleated RBC (Bld) [#/Vol] 0 10*3/uL Normal 0-5 [facility] Comment on above: Performed By: #### L [id number], [id number] #### [facility] [address] [place], [address] Platelet mean volume (Bld) [Entitic vol] 10.4 fL Normal 6.2-12.0 [facility] Comment on above: Performed By: #### L [id number], [id number] #### [facility] [address] [place], [address] Platelets (Bld) [#/Vol] 240 10*3/uL Normal 150-450 [facility] Comment on above: Performed By: #### L [id number], [id number] #### [facility] [address] [place], [address] RBC (Bld) [#/Vol] 4.30 10*6/uL Normal 4.2-5.4 [facility] Comment on above: Performed By: #### L [id number], [id number] #### [facility] [address] [place], [address] RDW SD 42.5 fl Normal 35.1-43.9 [facility] Comment on above: Performed By: #### L [id number], [id number] #### [facility] [address] [place], [address] WBC (Bld) [#/Vol] 6.6 10*3/uL Normal 4.4-11.0 [facility] Comment on above: Performed By: #### L [id number], [id number] #### [facility] [address] [place], [address] Carbon dioxide, total [Moles /volume] in Central venous bloodOrdered By: Kristin Mckay on 06-11-2024 CO2 [Moles/Vol] 26.4 mmol/L 21.0-32.0 [facility] Chloride assayOrdered By: Shweta Mckay on 06-11-2024 Chloride [Moles/Vol] 104 mmol/L 98-108 [facility] Comprehensive Metabolic Prof ilon 06-11-2024 Albumin [Mass/Vol] 4.1 g/dL Normal 3.4-4.8 [facility] Comment on above: Performed By: #### L [id number], [id number] #### [facility] [address] [place], [address] Albumin/Globulin [Mass ratio] 1.5 {ratio} Normal 0.9-2.4 [facility] Comment on above: Performed By: #### L [id number], [id number] #### [facility] [address] [place], [address] ALK PHOS 60 U/L Normal 35-104 [facility] Comment on above: Performed By: #### L [id number], [id number] #### [facility] [address] [place], [address] ALT [Catalytic activity/Vol] 13 U/L Normal <=34 [facility] Comment on above: Performed By: #### L [id number], [id number] #### [facility] [address] [place], [address] AST [Catalytic activity/Vol] 16 U/L Normal <=31 [facility] Comment on above: Performed By: #### L [id number], [id number] #### [facility] [address] [place], [address] Bilirubin [Mass/Vol] 0.36 mg/dL Normal 0.00-1.30 [facility] Comment on above: Performed By: #### L 501.95, [id number] #### [facility] [address] [place], [address] BUN/CRE 20.4 RATIO High 10-20 [facility] Comment on above: Performed By: #### L 501.95, [id number] #### [facility] [address] [place], [address] Calcium [Mass/Vol] 9.5 mg/dL Normal 7.6-11.0 [facility] Comment on above: Performed By: #### L [id number], [id number] #### [facility] [address] [place], [address] Chloride [Moles/Vol] 104 mmol/L Normal 98-108 [facility] Comment on above: Performed By: #### L [id number], [id number] #### [facility] [address] [place], [address] CO2 [Moles/Vol] 26.4 mmol/L Normal 21.0-32.0 [facility] Comment on above: Performed By: #### L [id number], [id number] #### [facility] [address] [place], [address] Creatinine [Mass/Vol] 0.95 mg/dL Normal 0.70-1.20 [facility] Comment on above: Performed By: #### L [id number], [id number] #### [facility] [address] [place], [address] GAP 11 Normal 5-15 [facility] Comment on above: Performed By: #### L [id number], [id number] #### [facility] [address] [place], [address] GFR/1.73 sq M.predicted among non-blacks MDRD (S/P/Bld) [Vol rate/Area] 67 mL/min/{1.73_m2} Normal >60 [facility] Comment on above: Result Comment: mL/m in/1.73m2 CKD-EPI Creatinine Equation (2020) Performed By: #### L [id number], L506.0400 #### [facility] [address] [place], [address] Globulin (S) [Mass/Vol] 2.7 g/dL Normal 2.2-4.2 [facility] Comment on above: Performed By: #### L [id number], [id number] #### [facility] [address] [place], [address] Glucose [Mass/Vol] 96 mg/dL Normal 70-99 [facility] Comment on above: Performed By: #### L [id number], [id number] #### [facility] [address] [place], [address] Potassium [Moles/Vol] 3.7 mmol/L Normal 3.3-5.1 [facility] Comment on above: Performed By: #### L [id number], [id number] #### [facility] [address] [place], [address] Sodium [Moles/Vol] 141 mmol/L Normal 133-145 [facility] Comment on above: Performed By: #### L [id number], [id number] #### [facility] [address] [place], [address] T PROT 6.8 g/dL Normal 5.9-8.4 [facility] Comment on above: Performed By: #### L [id number], L506.0400 #### [facility] [address] [place], [address] Urea nitrogen [Mass/Vol] 19 mg/dL Normal 4-19 [facility] Comment on above: Performed By: #### L [id number], L506.0400 #### [facility] [address] [place], [address] Eosinophil percentageOrdered By: Kristin Mckay on 06-11-2024 Eosinophils/100 WBC (Bld) 1.5 % 0-5 [facility] Erythrocyte distribution wid th ratioOrdered By: Kristin Mckay on 06-11-2024 Erythrocyte distribution width (RBC) [Ratio] 13.8 % 11.6-14.6 [facility] Erythrocyte distribution wid th standard deviationOrdered By: Kristin Mckay on 06-11-2024 Erythrocyte distribution width (RBC) [Entitic vol] 42.5 fL 35.1-43.9 [facility] Erythrocyte distribution width (RBC) [Ratio] 42.5 fl 35.1-43.9 [facility] GFR/1.73 sq M.predicted morris g non-blacks MDRD (S/P/Bld) [Vol rate/Area]Ordered By: rKistin Mckay on 06-11-2024 Estimated GFR (MDRD) Non-Af Amer 67 >60 [facility] Comment on above: mL/min/1.73m2 CKD-EP I Creatinine Equation (2020) Glomerular filtration rate ( GFR) estimation/1.73 sq m using serum, plasma, or whole bOrdered By: Kristin Mckay on 06-11-2024 GFR/1.73 sq M.predicted among non-blacks MDRD (S/P/Bld) [Vol rate/Area] 67 mL/min/{1.73_m2} >60 [facility] Comment on above: mL/min/1.73m2 CKD-EP I Creatinine Equation (2020) Hematocrit Auto (Bld) [Volum e fraction]Ordered By: Kristin Mckay on 06-11-2024 Hematocrit (Bld) [Volume fraction] 37.4 % 37-47 [facility] Hemoglobin measurementOrdere d By: Kristin Mckay on 06-11-2024 Hemoglobin (Bld) [Mass/Vol] 12.4 g/dL 12.0-15.0 [facility] Immature granulocytes/100 WB C Auto (Bld)Ordered By: Kristin Mckay on 06-11-2024 Immature granulocytes/100 WBC (Bld) 0.300 % 0.0-0.9 [facility] Comment on above: IG% - Immature Granu locytes (promyelocytes, myelocytes and metamyelocytes) > 1% indicates that a LEFT SHIFT is Present. Laboratory - Chemistry and C hemistry - challengeOrdered By: Kristin Mckay on 06-11-2024 AST [Catalytic activity/Vol] 16 U/L <32 [facility] Lymphocytes Auto (Unsp spec) [#/Vol]Ordered By: Kristin Mckay on 06-11-2024 Lymphocytes (Bld) [#/Vol] 1.62 10*3/uL 0.83-4.51 [facility] Lymphocytes/100 WBC Auto (Un sp spec)Ordered By: Kristin Mckay on 06-11-2024 Lymphocytes/100 WBC (Bld) 24.6 % 19-41 [facility] MCV (mean corpuscular volume ) determinationOrdered By: Kristin Mckay on 06-11-2024 MCV (RBC) [Entitic vol] 87.0 fL 81-99 [facility] Mean corpuscular hemoglobin (MCH) determinationOrdered By: Kristin Mckay on 06-11-2024 MCH (RBC) [Entitic mass] 28.8 pg 27.0-32.0 [facility] Mean corpuscular hemoglobin concentration (MCHC) determinationOrdered By: Kristin Mckay on 06-11-2024 MCHC (RBC) [Mass/Vol] 33.2 g/dL 32-36 [facility] Mean platelet volume determi nationOrdered By: Kristin Mckay on 06-11-2024 Platelet mean volume (Bld) [Entitic vol] 10.4 fL 6.2-12.0 [facility] Monocyte percentageOrdered B y: Kristin Mckay on 06-11-2024 Monocytes/100 WBC (Bld) 8.5 % 0-10 [facility] Neutrophil percentageOrdered By: Kristin Mckay on 06-11-2024 Neutrophils/100 WBC (Bld) 64.2 % 47-70 [facility] Nucleated red blood cell per centageOrdered By: Kristin Mckay on 06-11-2024 Nucleated RBC/100 WBC (Bld) [Ratio] 0 % 0-5 [facility] Platelet countOrdered By: Shweta Mckay on 06-11-2024 Platelets (Bld) [#/Vol] 240 10*3/uL 150-450 [facility] Potassium (Unsp spec) [Mass/ Vol]Ordered By: Kristin Mckay on 06-11-2024 Potassium [Moles/Vol] 3.7 mmol/L 3.3-5.1 [facility] Potassium measurement (mass/ volume)Ordered By: Kristin Mckay on 06-11-2024 Potassium (Unsp spec) [Mass/Vol] 3.7 mmol/L 3.3-5.1 [facility] RBC Auto (Bld) [#/Vol]Ordere d By: Kristin Mckay on 06-11-2024 RBC (Bld) [#/Vol] 4.30 10*6/uL 4.2-5.4 [facility] Serum creatinine measurement (mass/volume)Ordered By: Kristin Mckay on 06-11-2024 Creatinine [Mass/Vol] 0.95 mg/dL 0.70-1.20 [facility] Serum globulin measurementOr dered By: Kristin Mckay on 06-11-2024 Globulin (S) [Mass/Vol] 2.7 g/dL 2.2-4.2 [facility] Serum glucose measurement (m ass/volume)Ordered By: Kristin Mckay on 06-11-2024 Glucose [Mass/Vol] 96 mg/dL 70-99 [facility] Serum or plasma alanine avery otransferase (ALT) measurementOrdered By: Kristin Mckay on 06-11-2024 ALT [Catalytic activity/Vol] 13 U/L <35 [facility] Serum or plasma albumin vazquez urement (mass/volume)Ordered By: Kristin Mckay on 06-11-2024 Albumin [Mass/Vol] 4.1 g/dL 3.4-4.8 [facility] Serum or plasma albumin/glob ulin mass ratioOrdered By: Kristin Mckay on 06-11-2024 Albumin/Globulin [Mass ratio] 1.5 {ratio} 0.9-2.4 [facility] Serum or plasma alkaline glen sphatase measurementOrdered By: Kristin Mckay on 06-11-2024 ALP [Catalytic activity/Vol] 60 U/L 35-104 [facility] Serum or plasma calcium vazquez urement (mass/volume)Ordered By: Kristin Mckay on 06-11-2024 Calcium [Mass/Vol] 9.5 mg/dL 7.6-11.0 [facility] Serum or plasma urea nitroge n measurement (mass/volume)Ordered By: Kristin Mckay on 06-11-2024 Urea nitrogen [Mass/Vol] 19 mg/dL 4-19 [facility] Sodium levelOrdered By: Mark Mckay on 06-11-2024 Sodium [Moles/Vol] 141 mmol/L 133-145 [facility] Total proteinOrdered By: Esteban Mckay on 06-11-2024 Protein [Mass/Vol] 6.8 g/dL 5.9-8.4 [facility] White blood cell (WBC) count Ordered By: Kristin Mckay on 06-11-2024 WBC (Bld) [#/Vol] 6.6 10*3/uL 4.4-11.0 [facility] Orthopedic Visit Reporton Orthopedic Visit Report [facility] [address] [place] [address] [address] [place] [address] OFFICE VISIT Date of Service: 05/28/24 MR#: [id number] Acct: [id number] Name: GINETTE MACKENZIE Rep #: [id number] : 1960 Provider: Dr. Abisai neil DO Age/Sex: 64/F Location: [facility] Status: Signed Intake Vital Signs 03/19/24 10:15 [...] laminectomy History of laparoscopic-assisted vaginal hysterectomy (06/04/18) Bryan teeth extracted History of cervical polypectomy History [...] the decisions made by me, Dr. Abisai Roman DO 05/28/24 1052. 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 Normal [facility] SCRN MAMM (CAD)W/MACHELLE BILATo n 05-17-2024 SCRN MAMM (CAD)W/MACHELLE BILAT [facility] Imaging Services [address] [place] [id number] SCRN MAMM (CAD)W/MACHELLE BILAT MR#: [id number] Acct: [id number] Name: GINETTE MACKENZIE Rep #: [id number] : 1960 F 64 From: Bonita Miranda MD PCP: Dr. Win Matos MD Status: REG [facility] Study: SCRN MAMM (CAD)W/MACHELLE BILAT Date of Exam: 05/08 Exam# [id number] Ordering Dr: Win Matos MD PROCEDURE: SCRN [...] of the results by letter. Reading Location: [facility] CC: Dr. Win Matos MD Management Manager: Signed Normal [facility] Absolute neutrophil countOrd ered By: Kristin Mckay on 04-29-2024 Neutrophils (Bld) [#/Vol] 7.5 10*3/uL 2.0-7.7 [facility] Albumin to globulin ratioOrd ered By: Kristindarrell Mckay on 04-29-2024 Albumin/Globulin [Mass ratio] 1.1 {ratio} 0.9-2.4 [facility] Basophil percentageOrdered B y: Kristin Mckay on 04-29-2024 Basophils/100 WBC (Bld) 0.5 % 0-1 [facility] Bilirubin, totalOrdered By: Kristin Mckay on 04-29-2024 Bilirubin [Mass/Vol] 0.30 mg/dL 0.20-1.00 [facility] Comment on above: For patients on eltr ombopag therapy, use of Dimension Hugo TBIL is not recommended. Blood urea nitrogen (BUN)/cr eatinine ratioOrdered By: Kristin Mckay on 04-29-2024 Urea nitrogen/Creatinine [Mass ratio] 24.0 mg/mg High 10-20 [facility] CBC W/Diff, Automatedon 04-08 Absolute Lymph 1.43 X10 3/uL Normal 0.83-4.51 [facility] Comment on above: Performed By: #### L 501.9520, L100.0100, L500.4050 #### [facility] [address] [place], [address] Absolute Neut 7.5 X10 3/uL Normal 2.0-7.7 [facility] Comment on above: Performed By: #### L 501.9520, L100.0100, L500.4050 #### [facility] [address] [place], [address] Basophils/100 WBC (Bld) 0.5 % Normal 0-1 [facility] Comment on above: Performed By: #### L 501.9520, L100.0100, L500.4050 #### [facility] [address] [place], [address] Eosinophils/100 WBC (Bld) 0.5 % Normal 0-5 [facility] Comment on above: Performed By: #### L 501.9520, L100.0100, L500.4050 #### [facility] [address] [place], [address] Erythrocyte distribution width (RBC) [Ratio] 13.8 % Normal 11.6-14.6 [facility] Comment on above: Performed By: #### L 501.9520, L100.0100, L500.4050 #### [facility] [address] [place], [address] Hematocrit (Bld) [Volume fraction] 39.2 % Normal 37-47 [facility] Comment on above: Performed By: #### L 501.9520, L100.0100, L500.4050 #### [facility] [address] [place], [address] Hemoglobin (Bld) [Mass/Vol] 13.1 g/dL Normal 12.0-15.0 [facility] Comment on above: Performed By: #### L 501.9520, L100.0100, L500.4050 #### [facility] [address] [place], [address] IG% 0.600 Normal 0.0-0.9 [facility] Comment on above: Result Comment: IG% - Immature Granulocytes (promyelocytes, myelocytes and metamyelocytes) > 1% indicates that a LEFT SHIFT is Present. Performed By: #### L 501.9520, L100.0100, L500.4050 #### [facility] [address] [place], [address] Lymphocytes/100 WBC (Bld) 14.8 % Low 19-41 [facility] Comment on above: Performed By: #### L 501.9520, L100.0100, L500.4050 #### [facility] [address] [place], [address] MCH (RBC) [Entitic mass] 29.0 pg Normal 27.0-32.0 [facility] Comment on above: Performed By: #### L 501.9520, L100.0100, L500.4050 #### [facility] [address] [place], [address] MCHC (RBC) [Mass/Vol] 33.4 g/dL Normal 32-36 [facility] Comment on above: Performed By: #### L 501.9520, L100.0100, L500.4050 #### [facility] [address] [place], [address] MCV (RBC) [Entitic vol] 86.7 fL Normal 81-99 [facility] Comment on above: Performed By: #### L 501.9520, L100.0100, L500.4050 #### [facility] [address] [place], [address] Monocytes/100 WBC (Bld) 5.8 % Normal 0-10 [facility] Comment on above: Performed By: #### L 501.9520, L100.0100, L500.4050 #### [facility] [address] [place], [address] Neutrophils/100 WBC (Bld) 77.8 % High 47-70 [facility] Comment on above: Performed By: #### L 501.9520, L100.0100, L500.4050 #### [facility] [address] [place], [address] Nucleated RBC (Bld) [#/Vol] 0 10*3/uL Normal 0-5 [facility] Comment on above: Performed By: #### L 501.9520, L100.0100, L500.4050 #### [facility] [address] [place], [address] Platelet mean volume (Bld) [Entitic vol] 9.9 fL Normal 6.2-12.0 [facility] Comment on above: Performed By: #### L 501.9520, L100.0100, L500.4050 #### [facility] [address] [place], [address] Platelets (Bld) [#/Vol] 283 10*3/uL Normal 150-450 [facility] Comment on above: Performed By: #### L 501.9520, L100.0100, L500.4050 #### [facility] [address] [place], [address] RBC (Bld) [#/Vol] 4.52 10*6/uL Normal 4.2-5.4 [facility] Comment on above: Performed By: #### L 501.9520, L100.0100, L500.4050 #### [facility] [address] [place], [address] RDW SD 42.3 fl Normal 35.1-43.9 [facility] Comment on above: Performed By: #### L 501.9520, L100.0100, L500.4050 #### [facility] [address] [place], [address] WBC (Bld) [#/Vol] 9.7 10*3/uL Normal 4.4-11.0 [facility] Comment on above: Performed By: #### L 501.9520, L100.0100, L500.4050 #### [facility] [address] [place], [address] Carbon dioxide measurementOr dered By: Kristin Mckay on 04-29-2024 CO2 [Moles/Vol] 29.0 mmol/L 21.0-32.0 [facility] Chloride measurementOrdered By: Kristin Mckay on 04-29-2024 Chloride [Moles/Vol] 105 mmol/L 98-107 [facility] Comprehensive Metabolic Prof ilon 04-29-2024 Albumin [Mass/Vol] 4.0 g/dL Normal 3.2-5.0 [facility] Comment on above: Performed By: #### L 501.9520, L100.0100, L500.4050 #### [facility] [address] [place], [address] Albumin/Globulin [Mass ratio] 1.1 {ratio} Normal 0.9-2.4 [facility] Comment on above: Performed By: #### L 501.9520, L100.0100, L500.4050 #### [facility] [address] [place], [address] ALK P 57 U/L Normal 45-117 [facility] Comment on above: Performed By: #### L 501.9520, L100.0100, L500.4050 #### [facility] [address] [place], [address] ALT [Catalytic activity/Vol] 29 U/L Normal 13-56 [facility] Comment on above: Performed By: #### L 501.9520, L100.0100, L500.4050 #### [facility] [address] [place], [address] AST [Catalytic activity/Vol] 12 U/L Low 15-37 [facility] Comment on above: Performed By: #### L 501.9520, L100.0100, L500.4050 #### [facility] [address] [place], [address] Bilirubin [Mass/Vol] 0.30 mg/dL Normal 0.20-1.00 [facility] Comment on above: Result Comment: For patients on eltrombopag therapy, use of Dimension Hugo TBIL is not recommended. Performed By: #### L 501.9520, L100.0100, L500.4050 #### [facility] [address] [place], [address] BUN/CRE 24.0 RATIO High 10-20 [facility] Comment on above: Performed By: #### L 501.9520, L100.0100, L500.4050 #### [facility] [address] [place], [address] CA,Total 9.9 mg/dL Normal 8.5-10.1 [facility] Comment on above: Performed By: #### L 501.9520, L100.0100, L500.4050 #### [facility] [address] [place], [address] Chloride [Moles/Vol] 105 mmol/L Normal 98-107 [facility] Comment on above: Performed By: #### L 501.9520, L100.0100, L500.4050 #### [facility] [address] [place], [address] CO2 [Moles/Vol] 29.0 mmol/L Normal 21.0-32.0 [facility] Comment on above: Performed By: #### L 501.9520, L100.0100, L500.4050 #### [facility] [address] [place], [address] Creatinine [Mass/Vol] 0.96 mg/dL Normal 0.55-1.02 [facility] Comment on above: Result Comment: The validity of the calculated GFR GFRAA in patients over 70 years has not been determined. Clinical correlation is essential. Performed By: #### L 501.9520, L100.0100, L500.4050 #### [facility] [address] [place], [address] EST GFR - AA 75 mL/min Normal >60 [facility] Comment on above: Result Comment: Afri can [place] GFR Calc Performed By: #### L 501.9520, L100.0100, L500.4050 #### [facility] [address] [place], [address] GAP 5 Normal 5-15 [facility] Comment on above: Performed By: #### L 501.9520, L100.0100, L500.4050 #### [facility] [address] [place], [address] GFR/1.73 sq M.predicted among non-blacks MDRD (S/P/Bld) [Vol rate/Area] 62 mL/min/{1.73_m2} Normal >60 [facility] Comment on above: Result Comment: Non- GFR Calc Performed By: #### L 501.9520, L100.0100, L500.4050 #### [facility] [address] [place], [address] Globulin (S) [Mass/Vol] 3.5 g/dL Normal 2.2-4.2 [facility] Comment on above: Performed By: #### L 501.9520, L100.0100, L500.4050 #### [facility] [address] [place], [address] Glucose [Mass/Vol] 96 mg/dL Normal 74-106 [facility] Comment on above: Performed By: #### L 501.9520, L100.0100, L500.4050 #### [facility] [address] [place], [address] Potassium [Moles/Vol] 3.5 mmol/L Normal 3.5-5.1 [facility] Comment on above: Performed By: #### L 501.9520, L100.0100, L500.4050 #### [facility] [address] [place], [address] Sodium [Moles/Vol] 138 mmol/L Normal 136-145 [facility] Comment on above: Performed By: #### L 501.9520, L100.0100, L500.4050 #### [facility] [address] [place], [address] T PROT 7.5 g/dL Normal 6.4-8.2 [facility] Comment on above: Performed By: #### L 501.9520, L100.0100, L500.4050 #### [facility] [address] [place], [address] Urea nitrogen [Mass/Vol] 23 mg/dL High 7-18 [facility] Comment on above: Performed By: #### L 501.9520, L100.0100, L500.4050 #### [facility] [address] [place], [address] Eosinophil percentageOrdered By: Kristin Mckay on 04-29-2024 Eosinophils/100 WBC (Bld) 0.5 % 0-5 [facility] Erythrocyte distribution wid th ratioOrdered By: Kristin Mckay on 04-29-2024 Erythrocyte distribution width (RBC) [Ratio] 13.8 % 11.6-14.6 [facility] Erythrocyte distribution wid th standard deviationOrdered By: Kristin Mckay on 04-29-2024 Erythrocyte distribution width (RBC) [Entitic vol] 42.3 fL 35.1-43.9 [facility] Estimated glomerular filtrat ion rate (GFR) AmericanOrdered By: Kristin Mckay on 04-29-2024 Estimated GFR (MDRD) Amer 75 mL/min >60 [facility] Comment on above: GFR Calc Glomerular filtration rate ( GFR) estimationOrdered By: Kristin Mckay on 04-29-2024 Estimated GFR (MDRD) Non-Af Amer 62 mL/min >60 [facility] Comment on above: Non- GFR Calc Glucose measurementOrdered B y: Kristin Mckay on 04-29-2024 Glucose [Mass/Vol] 96 mg/dL 74-106 [facility] Hematocrit Auto (Bld) [Volum e fraction]Ordered By: Kristin Mckay on 04-29-2024 Hematocrit (Bld) [Volume fraction] 39.2 % 37-47 [facility] Hemoglobin measurementOrdere d By: Kristin Mckay on 04-29-2024 Hemoglobin (Bld) [Mass/Vol] 13.1 g/dL 12.0-15.0 [facility] Immature granulocytes/100 WB C Auto (Bld)Ordered By: Kristin Mckay on 04-29-2024 Immature granulocytes/100 WBC (Bld) 0.600 % 0.0-0.9 [facility] Comment on above: IG% - Immature Granu locytes (promyelocytes, myelocytes and metamyelocytes) > 1% indicates that a LEFT SHIFT is Present. Laboratory - Chemistry and C hemistry - challengeOrdered By: Kristin Mckay on 04-29-2024 AST [Catalytic activity/Vol] 12 U/L Low 15-37 [facility] Lymphocytes Auto (Unsp spec) [#/Vol]Ordered By: Kristin Mckay on 04-29-2024 Lymphocytes (Bld) [#/Vol] 1.43 10*3/uL 0.83-4.51 [facility] Lymphocytes/100 WBC Auto (Un sp spec)Ordered By: Kristin Mckay on 04-29-2024 Lymphocytes/100 WBC (Bld) 14.8 % Low 19-41 [facility] MCV (mean corpuscular volume ) determinationOrdered By: Kristin Mckay on 04-29-2024 MCV (RBC) [Entitic vol] 86.7 fL 81-99 [facility] Mean corpuscular hemoglobin (MCH) determinationOrdered By: Kristin Mckay on 04-29-2024 MCH (RBC) [Entitic mass] 29.0 pg 27.0-32.0 [facility] Mean corpuscular hemoglobin concentration (MCHC) determinationOrdered By: Kristin Mckay on 04-29-2024 MCHC (RBC) [Mass/Vol] 33.4 g/dL 32-36 [facility] Mean platelet volume determi nationOrdered By: Kristin Mckay on 04-29-2024 Platelet mean volume (Bld) [Entitic vol] 9.9 fL 6.2-12.0 [facility] Monocyte percentageOrdered B y: Kristin Mckay on 04-29-2024 Monocytes/100 WBC (Bld) 5.8 % 0-10 [facility] Neutrophil percentageOrdered By: Kristin Mckay on 04-29-2024 Neutrophils/100 WBC (Bld) 77.8 % High 47-70 [facility] Nucleated red blood cell per centageOrdered By: Kristin Mckay on 04-29-2024 Nucleated RBC/100 WBC (Bld) [Ratio] 0 % 0-5 [facility] Platelet countOrdered By: Shweta Mckay on 04-29-2024 Platelets (Bld) [#/Vol] 283 10*3/uL 150-450 [facility] Potassium measurementOrdered By: Kristin Mckay on 04-29-2024 Potassium [Moles/Vol] 3.5 mmol/L 3.5-5.1 [facility] RBC Auto (Bld) [#/Vol]Ordere d By: Kristin Mckay on 04-29-2024 RBC (Bld) [#/Vol] 4.52 10*6/uL 4.2-5.4 [facility] Serum anion gap measurementO rdered By: Kristin Mckay on 04-29-2024 Anion gap [Moles/Vol] 5 mmol/L 5-15 [facility] Serum globulin measurementOr dered By: Kristin Mckay on 04-29-2024 Globulin (S) [Mass/Vol] 3.5 g/dL 2.2-4.2 [facility] Serum or plasma alanine avery otransferase (ALT) measurementOrdered By: Kristin Mckay on 04-29-2024 ALT [Catalytic activity/Vol] 29 U/L 13-56 [facility] Serum or plasma albumin vazquez urement (mass/volume)Ordered By: Kristin Mckay on 04-29-2024 Albumin [Mass/Vol] 4.0 g/dL 3.2-5.0 [facility] Serum or plasma alkaline glen sphatase measurementOrdered By: Kristin Mckay on 04-29-2024 ALP [Catalytic activity/Vol] 57 U/L 45-117 [facility] Serum or plasma calcium vazquez urement (mass/volume)Ordered By: Kristin Mckay on 04-29-2024 Calcium [Mass/Vol] 9.9 mg/dL 8.5-10.1 [facility] Serum or plasma creatinine m easurement (mass/volume)Ordered By: Kristin Mckay on 04-29-2024 Creatinine [Mass/Vol] 0.96 mg/dL 0.55-1.02 [facility] Comment on above: The validity of the calculated GFR & GFRAA in patients over 70 years has not been determined. Clinical correlation is essential. Serum or plasma urea nitroge n measurement (mass/volume)Ordered By: Kristin Mckay on 04-29-2024 Urea nitrogen [Mass/Vol] 23 mg/dL High 7-18 [facility] Sodium levelOrdered By: Mark Mckay on 04-29-2024 Sodium [Moles/Vol] 138 mmol/L 136-145 [facility] Total proteinOrdered By: Esteban Mckay on 04-29-2024 Protein [Mass/Vol] 7.5 g/dL 6.4-8.2 [facility] White blood cell (WBC) count Ordered By: Kristin Mckay on 04-29-2024 WBC (Bld) [#/Vol] 9.7 10*3/uL 4.4-11.0 [facility] Endocrinology Visit Reporton 03-19-2024 Endocrinology Visit Report [facility] [address] [place] [address]. 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 Normal [facility] Absolute neutrophil countOrd ered By: Kristin Mckay on 02-28-2024 Neutrophils (Bld) [#/Vol] 3.9 10*3/uL 2.0-7.7 [facility] Albumin to globulin ratioOrd ered By: Kristindarrell Mckay on 02-28-2024 Albumin/Globulin [Mass ratio] 1.1 {ratio} 0.9-2.4 [facility] Basophil percentageOrdered B y: Kristin Mckay on 02-28-2024 Basophils/100 WBC (Bld) 0.8 % 0-1 [facility] Bilirubin, totalOrdered By: Kristindarrell Mckay on 02-28-2024 Bilirubin [Mass/Vol] 0.40 mg/dL 0.20-1.00 [facility] Comment on above: For patients on eltr ombopag therapy, use of Dimension Hugo TBIL is not recommended. Blood urea nitrogen (BUN)/cr eatinine ratioOrdered By: Kristin Mckay on 02-28-2024 Urea nitrogen/Creatinine [Mass ratio] 25.6 mg/mg High 01-24 [facility] CBC W/Diff, Automatedon 02-06 Absolute Lymph 2.72 X10 3/uL Normal 0.83-4.51 [facility] Comment on above: Performed By: #### L 501.9520, L100.0100, L500.4050 #### [facility] [address] [place], [address] Absolute Neut 3.9 X10 3/uL Normal 2.0-7.7 [facility] Comment on above: Performed By: #### L 501.9520, L100.0100, L500.4050 #### [facility] [address] [place], [address] Basophils/100 WBC (Bld) 0.8 % Normal 0-1 [facility] Comment on above: Performed By: #### L 501.9520, L100.0100, L500.4050 #### [facility] [address] [place], [address] Eosinophils/100 WBC (Bld) 1.7 % Normal 0-5 [facility] Comment on above: Performed By: #### L 501.9520, L100.0100, L500.4050 #### [facility] [address] [place], [address] Erythrocyte distribution width (RBC) [Ratio] 13.6 % Normal 11.6-14.6 [facility] Comment on above: Performed By: #### L 501.9520, L100.0100, L500.4050 #### [facility] [address] [place], [address] Hematocrit (Bld) [Volume fraction] 37.7 % Normal 37-47 [facility] Comment on above: Performed By: #### L 501.9520, L100.0100, L500.4050 #### [facility] [address] [place], [address] Hemoglobin (Bld) [Mass/Vol] 12.1 g/dL Normal 12.0-15.0 [facility] Comment on above: Performed By: #### L 501.9520, L100.0100, L500.4050 #### [facility] [address] [place], [address] IG% 0.500 Normal 0.0-0.9 [facility] Comment on above: Result Comment: IG% - Immature Granulocytes (promyelocytes, myelocytes and metamyelocytes) > 1% indicates that a LEFT SHIFT is Present. Performed By: #### L 501.9520, L100.0100, L500.4050 #### [facility] [address] [place], [address] Lymphocytes/100 WBC (Bld) 36.6 % Normal 19-41 [facility] Comment on above: Performed By: #### L 501.9520, L100.0100, [id number] #### [facility] [address] [place], [address] MCH (RBC) [Entitic mass] 27.9 pg Normal 27.0-32.0 [facility] Comment on above: Performed By: #### L 501.9520, L100.0100, [id number] #### [facility] [address] [place], [address] MCHC (RBC) [Mass/Vol] 32.1 g/dL Normal 32-36 [facility] Comment on above: Performed By: #### L 501.9520, L100.0100, [id number] #### [facility] [address] [place], [address] MCV (RBC) [Entitic vol] 86.9 fL Normal 81-99 [facility] Comment on above: Performed By: #### L 501.9520, L100.0100, [id number] #### [facility] [address] [place], [address] Monocytes/100 WBC (Bld) 8.2 % Normal 0-10 [facility] Comment on above: Performed By: #### L 501.9520, L100.0100, [id number] #### [facility] [address] [place], [address] Neutrophils/100 WBC (Bld) 52.2 % Normal 47-70 [facility] Comment on above: Performed By: #### L 501.9520, L100.0100, [id number] #### [facility] [address] [place], [address] Nucleated RBC (Bld) [#/Vol] 0 10*3/uL Normal 0-5 [facility] Comment on above: Performed By: #### L 501.9520, L100.0100, [id number] #### [facility] [address] [place], [address] Platelet mean volume (Bld) [Entitic vol] 9.2 fL Normal 6.2-12.0 [facility] Comment on above: Performed By: #### L 501.9520, L100.0100, [id number] #### [facility] [address] [place], [address] Platelets (Bld) [#/Vol] 246 10*3/uL Normal 150-450 [facility] Comment on above: Performed By: #### L 501.9520, L100.0100, [id number] #### [facility] [address] [place], [address] RBC (Bld) [#/Vol] 4.34 10*6/uL Normal 4.2-5.4 [facility] Comment on above: Performed By: #### L 501.9520, L100.0100, [id number] #### [facility] [address] [place], [address] RDW SD 41.7 fl Normal 35.1-43.9 [facility] Comment on above: Performed By: #### L 501.9520, L100.0100, [id number] #### [facility] [address] [place], [address] WBC (Bld) [#/Vol] 7.4 10*3/uL Normal 4.4-11.0 [facility] Comment on above: Performed By: #### L 501.9520, L100.0100, [id number] #### [facility] [address] [place], [address] Carbon dioxide measurementOr dered By: Kristin Mckay on 02-28-2024 CO2 [Moles/Vol] 31.0 mmol/L 21.0-32.0 [facility] Chloride measurementOrdered By: Kristin Mckay on 02-28-2024 Chloride [Moles/Vol] 106 mmol/L 98-107 [facility] Comprehensive Metabolic Prof ilon 02-28-2024 Albumin [Mass/Vol] 3.5 g/dL Normal 3.2-5.0 [facility] Comment on above: Performed By: #### L 501.9520, L100.0100, L500.4050 #### [facility] [address] [place], [address] Albumin/Globulin [Mass ratio] 1.1 {ratio} Normal 0.9-2.4 [facility] Comment on above: Performed By: #### L 501.9520, L100.0100, [id number] #### [facility] [address] [place], [address] ALK P 59 U/L Normal 45-117 [facility] Comment on above: Performed By: #### L 501.9520, L100.0100, [id number] #### [facility] [address] [place], [address] ALT [Catalytic activity/Vol] 14 U/L Normal 13-56 [facility] Comment on above: Performed By: #### L 501.9520, L100.0100, [id number] #### [facility] [address] [place], [address] AST [Catalytic activity/Vol] 10 U/L Low 15-37 [facility] Comment on above: Performed By: #### L 501.9520, L100.0100, [id number] #### [facility] [address] [place], [address] Bilirubin [Mass/Vol] 0.40 mg/dL Normal 0.20-1.00 [facility] Comment on above: Result Comment: For patients on eltrombopag therapy, use of Dimension Hugo TBIL is not recommended. Performed By: #### L 501.9520, L100.0100, L500.4050 #### [facility] [address] [place], [address] BUN/CRE 25.6 RATIO High 10-20 [facility] Comment on above: Performed By: #### L 501.9520, L100.0100, [id number] #### [facility] [address] [place], [address] CA,Total 9.0 mg/dL Normal 8.5-10.1 [facility] Comment on above: Performed By: #### L 501.9520, L100.0100, [id number] #### [facility] [address] [place], [address] Chloride [Moles/Vol] 106 mmol/L Normal 98-107 [facility] Comment on above: Performed By: #### L 501.9520, L100.0100, [id number] #### [facility] [address] [place], [address] CO2 [Moles/Vol] 31.0 mmol/L Normal 21.0-32.0 [facility] Comment on above: Performed By: #### L 501.9520, L100.0100, [id number] #### [facility] [address] [place], [address] Creatinine [Mass/Vol] 0.90 mg/dL Normal 0.55-1.02 [facility] Comment on above: Result Comment: The validity of the calculated GFR GFRAA in patients over 70 years has not been determined. Clinical correlation is essential. Performed By: #### L 501.9520, L100.0100, L500.4050 #### [facility] [address] [place], [address] EST GFR - AA 81 mL/min Normal >60 [facility] Comment on above: Result Comment: Afri can [place] GFR Calc Performed By: #### L 501.9520, L100.0100, [id number] #### [facility] [address] [place], [address] GAP 5 Normal 5-15 [facility] Comment on above: Performed By: #### L 501.9520, L100.0100, [id number] #### [facility] [address] [place], [address] GFR/1.73 sq M.predicted among non-blacks MDRD (S/P/Bld) [Vol rate/Area] 67 mL/min/{1.73_m2} Normal >60 [facility] Comment on above: Result Comment: Non- GFR Calc Performed By: #### L 501.9520, L100.0100, L500.4050 #### [facility] [address] [place], [address] Globulin (S) [Mass/Vol] 3.2 g/dL Normal 2.2-4.2 [facility] Comment on above: Performed By: #### L 501.9520, L100.0100, [id number] #### [facility] [address] [place], [address] Glucose [Mass/Vol] 99 mg/dL Normal 74-106 [facility] Comment on above: Performed By: #### L 501.9520, L100.0100, [id number] #### [facility] [address] [place], [address] Potassium [Moles/Vol] 3.9 mmol/L Normal 3.5-5.1 [facility] Comment on above: Performed By: #### L 501.9520, L100.0100, [id number] #### [facility] [address] [place], [address] Sodium [Moles/Vol] 141 mmol/L Normal 136-145 [facility] Comment on above: Performed By: #### L 501.9520, L100.0100, L500.4050 #### [facility] [address] [place], [address] T PROT 6.7 g/dL Normal 6.4-8.2 [facility] Comment on above: Performed By: #### L 501.9520, L100.0100, [id number] #### [facility] [address] [place], [address] Urea nitrogen [Mass/Vol] 23 mg/dL High 7-18 [facility] Comment on above: Performed By: #### L 501.9520, L100.0100, [id number] #### [facility] [address] [place], [address] Eosinophil percentageOrdered By: Kristin Mckay on 02-28-2024 Eosinophils/100 WBC (Bld) 1.7 % 0-5 [facility] Erythrocyte distribution wid th ratioOrdered By: Kristin Mckay on 02-28-2024 Erythrocyte distribution width (RBC) [Ratio] 13.6 % 11.6-14.6 [facility] Erythrocyte distribution wid th standard deviationOrdered By: Kristin Mckay on 02-28-2024 Erythrocyte distribution width (RBC) [Entitic vol] 41.7 fL 35.1-43.9 [facility] Estimated glomerular filtrat ion rate (GFR) AmericanOrdered By: Kristin Mckay on 02-28-2024 Estimated GFR (MDRD) Amer 81 mL/min >60 [facility] Comment on above: GFR Calc Glomerular filtration rate ( GFR) estimationOrdered By: Kristin Mckay on 02-28-2024 Estimated GFR (MDRD) Non-Af Amer 67 mL/min >60 [facility] Comment on above: Non- GFR Calc Glucose measurementOrdered B y: Kristin Mckay on 02-28-2024 Glucose [Mass/Vol] 99 mg/dL 74-106 [facility] Hematocrit Auto (Bld) [Volum e fraction]Ordered By: Kristin Mckay on 02-28-2024 Hematocrit (Bld) [Volume fraction] 37.7 % 37-47 [facility] Hemoglobin measurementOrdere d By: Kristin Mckay on 02-28-2024 Hemoglobin (Bld) [Mass/Vol] 12.1 g/dL 12.0-15.0 [facility] Immature granulocytes/100 WB C Auto (Bld)Ordered By: Kristin Mckay on 02-28-2024 Immature granulocytes/100 WBC (Bld) 0.500 % 0.0-0.9 [facility] Comment on above: IG% - Immature Granu locytes (promyelocytes, myelocytes and metamyelocytes) > 1% indicates that a LEFT SHIFT is Present. Laboratory - Chemistry and C hemistry - challengeOrdered By: Kristin Mckay on 02-28-2024 AST [Catalytic activity/Vol] 10 U/L Low 15-37 [facility] Lymphocytes Auto (Unsp spec) [#/Vol]Ordered By: Kristin Mckay on 02-28-2024 Lymphocytes (Bld) [#/Vol] 2.72 10*3/uL 0.83-4.51 [facility] Lymphocytes/100 WBC Auto (Un sp spec)Ordered By: Kristin Mckay on 02-28-2024 Lymphocytes/100 WBC (Bld) 36.6 % 19-41 [facility] MCV (mean corpuscular volume ) determinationOrdered By: Kristin Mckay on 02-28-2024 MCV (RBC) [Entitic vol] 86.9 fL 81-99 [facility] Mean corpuscular hemoglobin (MCH) determinationOrdered By: Kristin Mckay on 02-28-2024 MCH (RBC) [Entitic mass] 27.9 pg 27.0-32.0 [facility] Mean corpuscular hemoglobin concentration (MCHC) determinationOrdered By: Kristin Mckay on 02-28-2024 MCHC (RBC) [Mass/Vol] 32.1 g/dL 32-36 [facility] Mean platelet volume determi nationOrdered By: Kristin Mckay on 02-28-2024 Platelet mean volume (Bld) [Entitic vol] 9.2 fL 6.2-12.0 [facility] Monocyte percentageOrdered B y: Kristin Mckay on 02-28-2024 Monocytes/100 WBC (Bld) 8.2 % 0-10 [facility] Neutrophil percentageOrdered By: Kristin Mckay on 02-28-2024 Neutrophils/100 WBC (Bld) 52.2 % 47-70 [facility] Nucleated red blood cell per centageOrdered By: Kristin Mckay on 02-28-2024 Nucleated RBC/100 WBC (Bld) [Ratio] 0 % 0-5 [facility] Platelet countOrdered By: Shweta Mckay on 02-28-2024 Platelets (Bld) [#/Vol] 246 10*3/uL 150-450 [facility] Potassium measurementOrdered By: Kristin Mckay on 02-28-2024 Potassium [Moles/Vol] 3.9 mmol/L 3.5-5.1 [facility] RBC Auto (Bld) [#/Vol]Ordere d By: Kristin Mckay on 02-28-2024 RBC (Bld) [#/Vol] 4.34 10*6/uL 4.2-5.4 [facility] Serum anion gap measurementO rdered By: Kristin Mckay on 02-28-2024 Anion gap [Moles/Vol] 5 mmol/L 5-15 [facility] Serum globulin measurementOr dered By: Kristin Mckay on 02-28-2024 Globulin (S) [Mass/Vol] 3.2 g/dL 2.2-4.2 [facility] Serum or plasma alanine avery otransferase (ALT) measurementOrdered By: Kristin Mckay on 02-28-2024 ALT [Catalytic activity/Vol] 14 U/L 13-56 [facility] Serum or plasma albumin vazquez urement (mass/volume)Ordered By: Kristin Mckay on 02-28-2024 Albumin [Mass/Vol] 3.5 g/dL 3.2-5.0 [facility] Serum or plasma alkaline glen sphatase measurementOrdered By: Kristin Mckay on 02-28-2024 ALP [Catalytic activity/Vol] 59 U/L 45-117 [facility] Serum or plasma calcium vazquez urement (mass/volume)Ordered By: Kristin Mckay on 02-28-2024 Calcium [Mass/Vol] 9.0 mg/dL 8.5-10.1 [facility] Serum or plasma creatinine m easurement (mass/volume)Ordered By: Kristin Mckay on 02-28-2024 Creatinine [Mass/Vol] 0.90 mg/dL 0.55-1.02 [facility] Comment on above: The validity of the calculated GFR & GFRAA in patients over 70 years has not been determined. Clinical correlation is essential. Serum or plasma urea nitroge n measurement (mass/volume)Ordered By: Kristin Mckay on 02-28-2024 Urea nitrogen [Mass/Vol] 23 mg/dL High -18 [facility] Sodium levelOrdered By: Mark Mckya on 02-28-2024 Sodium [Moles/Vol] 141 mmol/L 136-145 [facility] Total proteinOrdered By: Esteban Mckay on 02-28-2024 Protein [Mass/Vol] 6.7 g/dL 6.4-8.2 [facility] White blood cell (WBC) count Ordered By: Kristin Mckay on 02-28-2024 WBC (Bld) [#/Vol] 7.4 10*3/uL 4.4-11.0 [facility] Basic Metabolic Profile (BMP )on 02-12-2024 BUN/CRE 25.7 RATIO High 10-20 [facility] Comment on above: Order Comment: ONLY CARLO Performed By: #### L 501.9520, L100.0100, L500.4050 #### [facility] [address] [place], [address] CA,Total 8.8 mg/dL Normal 8.5-10.1 [facility] Comment on above: Order Comment: ONLY CARLO Performed By: #### L 501.9520, L100.0100, L500.4050 #### [facility] [address] [place], [address] Chloride [Moles/Vol] 106 mmol/L Normal 98-107 [facility] Comment on above: Order Comment: ONLY CARLO Performed By: #### L 501.9520, L100.0100, L500.4050 #### [facility] [address] [place], [address] CO2 [Moles/Vol] 29.0 mmol/L Normal 21.0-32.0 [facility] Comment on above: Order Comment: ONLY CARLO Performed By: #### L 501.9520, L100.0100, L500.4050 #### [facility] [address] [place], [address] Creatinine [Mass/Vol] 0.86 mg/dL Normal 0.55-1.02 [facility] Comment on above: Order Comment: ONLY CARLO Result Comment: The validity of the calculated GFR GFRAA in patients over 70 years has not been determined. Clinical correlation is essential. Performed By: #### L 501.9520, L100.0100, L500.4050 #### [facility] [address] [place], [address] EST GFR - AA 86 mL/min Normal >60 [facility] Comment on above: Order Comment: ONLY CARLO Result Comment: Afri can [place] GFR Calc Performed By: #### L 501.9520, L100.0100, L500.4050 #### [facility] [address] [place], [address] GAP 4 Low 5-15 [facility] Comment on above: Order Comment: ONLY CARLO Performed By: #### L 501.9520, L100.0100, L500.4050 #### [facility] [address] [place], [address] GFR/1.73 sq M.predicted among non-blacks MDRD (S/P/Bld) [Vol rate/Area] 71 mL/min/{1.73_m2} Normal >60 [facility] Comment on above: Order Comment: ONLY CARLO Result Comment: Non- GFR Calc Performed By: #### L 501.9520, L100.0100, L500.4050 #### [facility] [address] [place], [address] Glucose [Mass/Vol] 113 mg/dL High 74-106 [facility] Comment on above: Order Comment: ONLY CARLO Result Comment: Fast ing Glucose result from 100 to 125 mg/dL suggests IMPAIRED HOMEOSTASIS per A.D.A. criteria. Performed By: #### L 501.9520, L100.0100, L500.4050 #### [facility] [address] [place], [address] Potassium [Moles/Vol] 3.6 mmol/L Normal 3.5-5.1 [facility] Comment on above: Order Comment: ONLY CARLO Performed By: #### L 501.9520, L100.0100, L500.4050 #### [facility] [address] [place], [address] Sodium [Moles/Vol] 139 mmol/L Normal 136-145 [facility] Comment on above: Order Comment: ONLY CARLO Performed By: #### L 501.9520, L100.0100, L500.4050 #### [facility] [address] [place], [address] Urea nitrogen [Mass/Vol] 22 mg/dL High 7-18 [facility] Comment on above: Order Comment: ONLY CARLO Performed By: #### L 501.9520, L100.0100, L500.4050 #### [facility] [address] [place], [address] T4 Free Directon 11-07-2024 T4 FREE DIRECT 1.20 ng/dL Normal 0.76-1.46 [facility] Comment on above: Performed By: #### L 501.9520, L506.0400 #### [facility] [address] [place], [address] Thyroid Stim Hormone (TSH)on 02-12-2024 TSH 0.328 uIU/mL Low 0.358-3.740 [facility] Comment on above: Performed By: #### L 501.9520, L506.0400 #### [facility] [address] [place], [address] Lipid Profileon 01-17-2024 Cholesterol [Mass/Vol] 214 mg/dL High 200 [facility] Comment on above: Order Comment: DR. Nuha CHE ORDER WAS ALREADY DONE 08-06-23 ON RF COLLECTED 01/11 Result Comment: <200 mg/dL Desirable 200-240 mg/dL Borderline >240 mg/dL High Risk Performed By: #### L 501.9520, L100.0100, L500.4050 #### [facility] [address] [place], [address] Cholesterol in HDL [Mass/Vol] 72 mg/dL Normal [facility] Comment on above: Order Comment: DR. Nuha CHE ORDER WAS ALREADY DONE 08-06-23 ON RF COLLECTED 01/11 Result Comment: The drugs N-Acetylcysteine and Metamizole may falsely depress this assay. Reference Range HDL <40 mg/dL Low HDL Cholesterol HDL >or= 60 mg/dL High HDL Cholesterol Performed By: #### L 501.9520, L100.0100, L500.4050 #### [facility] [address] [place], [address] Cholesterol in LDL [Mass/Vol] 117 mg/dL Normal 0-130 [facility] Comment on above: Order Comment: DR. Nuha PEÑA WAS ALREADY DONE -04-30ADD ON RF COLLECTED 01/11 Performed By: #### L 501.9520, L100.0100, L500.4050 #### [facility] [address] [place], [address] Cholesterol in VLDL [Mass/Vol] 25 mg/dL Normal 5-40 [facility] Comment on above: Order Comment: DR. Nuha PEÑA WAS ALREADY DONE -04-30ADD ON RF COLLECTED 01/11 Performed By: #### L 501.9520, L100.0100, L500.4050 #### [facility] [address] [place], [address] Triglyceride [Mass/Vol] 125 mg/dL Normal [facility] Comment on above: Order Comment: DR. Nuha PEÑA WAS ALREADY DONE - ON RF COLLECTED 01/11 Result Comment: The drugs N-Acetylcysteine and Metamizole may falsely depress this assay. Serum Triglycerides Reference Interval Normal <150 mg/dL Borderline high 150 - 199 mg/dL High 200 - 499 mg/dL Very High > or = 500 mg/dL Performed By: #### L 501.9520, L100.0100, L500.4050 #### [facility] [address] [place], [place], [address] Thyroid Stim Hormone (TSH)on 01-17-2024 TSH 1.110 uIU/mL Normal 0.358-3.740 [facility] Comment on above: Order Comment: DR. Nuha PEÑA WAS ALREADY DONE -04-30ADD ON RF COLLECTED 01/11 Performed By: #### L 501.9520, L100.0100, L500.4050 #### [facility] [address] [place], [address] ANTINUCLEAR ANTIBODIES DIREC Ton 01-13-2024 MISSY,DIRECT Negative Normal Negative [facility] Comment on above: Result Comment: Perf ormed at: - [facility] [id number] [employer] Hel[employer]: Louis Mariee PhD, Phone: [phone] Performed By: #### L 501.9520, L100.0100, L500.4050 #### [facility] [address] [place], [address] CCP IgG Antibodieson 024 CCP IgG Ab. 7 units Normal 0-19 [facility] Comment on above: Result Comment: Nega tive <20 Weak positive 20 - 39 Moderate positive 40 - 59 Strong positive >59 Performed at: [address] [id number] [employer]: Louis Mariee PhD, Phone: [phone] Performed By: #### L 501.9520, L100.0100, L500.4050 #### [facility] [address] [place], [address] Rheumatoid Factoron 01-13-20 24 RHEUMATOID FAC < 10.0 Normal <15 [facility] Comment on above: Order Comment: DR. Nuha CHE ORDER WAS ALREADY DONE 08-06-23ADD ON RF COLLECTED 01/11 Performed By: #### L 501.9520, L100.0100, L500.4050 #### [facility] [address] [place], [address] CBC W/Diff, Automatedon 10 Absolute Lymph 1.89 X10 3/uL Normal 0.83-4.51 [facility] Comment on above: Performed By: #### L 501.9520, L100.0100, L500.4050 #### [facility] [address] [place], [address] Absolute Neut 6.4 X10 3/uL Normal 2.0-7.7 [facility] Comment on above: Performed By: #### L 501.9520, L100.0100, L500.4050 #### [facility] [address] [place], [address] Basophils/100 WBC (Bld) 0.5 % Normal 0-1 [facility] Comment on above: Performed By: #### L 501.9520, L100.0100, L500.4050 #### [facility] [address] [place] [place], [address] Eosinophils/100 WBC (Bld) 1.1 % Normal 0-5 [facility] Comment on above: Performed By: #### L 501.9520, L100.0100, L500.4050 #### [facility] [address] [place], [address] Erythrocyte distribution width (RBC) [Ratio] 13.2 % Normal 11.6-14.6 [facility] Comment on above: Performed By: #### L 501.9520, L100.0100, [id number] #### [facility] [address] [place], [address] Hematocrit (Bld) [Volume fraction] 40.9 % Normal 37-47 [facility] Comment on above: Performed By: #### L 501.9520, L100.0100, [id number] #### [facility] [address] [place], [address] Hemoglobin (Bld) [Mass/Vol] 13.1 g/dL Normal 12.0-15.0 [facility] Comment on above: Performed By: #### L 501.9520, L100.0100, [id number] #### [facility] [address] [place], [address] IG% 0.300 Normal 0.0-0.9 [facility] Comment on above: Result Comment: IG% - Immature Granulocytes (promyelocytes, myelocytes and metamyelocytes) > 1% indicates that a LEFT SHIFT is Present. Performed By: #### L 501.9520, L100.0100, L500.4050 #### [facility] [address] [place], [address] Lymphocytes/100 WBC (Bld) 20.7 % Normal 19-41 [facility] Comment on above: Performed By: #### L 501.9520, L100.0100, [id number] #### [facility] [address] [place], [address] MCH (RBC) [Entitic mass] 27.2 pg Normal 27.0-32.0 [facility] Comment on above: Performed By: #### L 501.9520, L100.0100, [id number] #### [facility] [address] [place], [address] MCHC (RBC) [Mass/Vol] 32.0 g/dL Normal 32-36 [facility] Comment on above: Performed By: #### L 501.9520, L100.0100, L500.4050 #### [facility] [address] [place], [address] MCV (RBC) [Entitic vol] 85.0 fL Normal 81-99 [facility] Comment on above: Performed By: #### L 501.9520, L100.0100, [id number] #### [facility] [address] [place], [address] Monocytes/100 WBC (Bld) 7.0 % Normal 0-10 [facility] Comment on above: Performed By: #### L 501.9520, L100.0100, [id number] #### [facility] [address] [place], [address] Neutrophils/100 WBC (Bld) 70.4 % High 47-70 [facility] Comment on above: Performed By: #### L 501.9520, L100.0100, [id number] #### [facility] [address] [place], [address] Nucleated RBC (Bld) [#/Vol] 0 10*3/uL Normal 0-5 [facility] Comment on above: Performed By: #### L 501.9520, L100.0100, L500.4050 #### [facility] [address] [place], [address] Platelet mean volume (Bld) [Entitic vol] 10.4 fL Normal 6.2-12.0 [facility] Comment on above: Performed By: #### L 501.9520, L100.0100, [id number] #### [facility] [address] [place], [address] Platelets (Bld) [#/Vol] 265 10*3/uL Normal 150-450 [facility] Comment on above: Performed By: #### L 501.9520, L100.0100, [id number] #### [facility] [address] [place], [address] RBC (Bld) [#/Vol] 4.81 10*6/uL Normal 4.2-5.4 [facility] Comment on above: Performed By: #### L 501.9520, L100.0100, [id number] #### [facility] [address] [place], [address] RDW SD 40.6 fl Normal 35.1-43.9 [facility] Comment on above: Performed By: #### L 501.9520, L100.0100, [id number] #### [facility] [address] [place], [address] WBC (Bld) [#/Vol] 9.1 10*3/uL Normal 4.4-11.0 [facility] Comment on above: Performed By: #### L 501.9520, L100.0100, L500.4050 #### [facility] [address] [place], [address] CRPon 01-12-2024 C-REACTIVE PROT 8.76 mg/L High 0.0-3.0 [facility] Comment on above: Order Comment: DR. Nuha PEÑA WAS ALREADY DONE 08-06-23 Result Comment: C-Re active Protein (CRP) provides useful information for the diagnosis, therapy and monitoring of inflammatory processes and associated diseases. For the evaluation of Relative Risk for Cardiovascular Disease, a High Sensitivity CRP (HSCRP) should be ordered. Performed By: #### L 501.9520, L100.0100, L500.4050 #### [facility] [address] [place], [address] Comprehensive Metabolic Prof ilon 01-12-2024 Albumin [Mass/Vol] 3.7 g/dL Normal 3.2-5.0 [facility] Comment on above: Order Comment: DR. Nuha PEÑA WAS ALREADY DONE 08-06-23 Performed By: #### L 501.9520, L100.0100, L500.4050 #### [facility] [address] [place], [address] Albumin/Globulin [Mass ratio] 1.0 {ratio} Normal 0.9-2.4 [facility] Comment on above: Order Comment: DR. Nuha PEÑA WAS ALREADY DONE 08-06-23 Performed By: #### L 501.9520, L100.0100, L500.4050 #### [facility] [address] [place], [address] ALK P 70 U/L Normal 45-117 [facility] Comment on above: Order Comment: DR. Nuha PEÑA WAS ALREADY DONE 08-06-23 Performed By: #### L 501.9520, L100.0100, [id number] #### [facility] [address] [place], [address] ALT [Catalytic activity/Vol] 18 U/L Normal 13-56 [facility] Comment on above: Order Comment: DR. Nuha PEÑA WAS ALREADY DONE 08-06-23 Performed By: #### L 501.9520, L100.0100, L500.4050 #### [facility] [address] [place], [address] AST [Catalytic activity/Vol] 14 U/L Low 15-37 [facility] Comment on above: Order Comment: DR. Nuha CHE ORDER WAS ALREADY DONE 5-1-24 Performed By: #### L 501.9520, L100.0100, L500.4050 #### [facility] [address] [place], [address] Bilirubin [Mass/Vol] 0.50 mg/dL Normal 0.20-1.00 [facility] Comment on above: Order Comment: DR. Nuha CHE ORDER WAS ALREADY DONE 5--24 Result Comment: For patients on eltrombopag therapy, use of Dimension Hugo TBIL is not recommended. Performed By: #### L 501.9520, L100.0100, L500.4050 #### [facility] [address] [place], [address] BUN/CRE 26.2 RATIO High 10-20 [facility] Comment on above: Order Comment: DR. Nuha PEÑA WAS ALREADY DONE -04-30 Performed By: #### L 501.9520, L100.0100, L500.4050 #### [facility] [address] [place], [address] CA,Total 9.7 mg/dL Normal 8.5-10.1 [facility] Comment on above: Order Comment: DR. Nuha PEÑA WAS ALREADY DONE 5--24 Performed By: #### L 501.9520, L100.0100, L500.4050 #### [facility] [address] [place], [address] Chloride [Moles/Vol] 105 mmol/L Normal 98-107 [facility] Comment on above: Order Comment: DR. Nuha PEÑA WAS ALREADY DONE 5--24 Performed By: #### L 501.9520, L100.0100, L500.4050 #### [facility] [address] [place], [address] CO2 [Moles/Vol] 27.0 mmol/L Normal 21.0-32.0 [facility] Comment on above: Order Comment: DR. Nuha PEÑA WAS ALREADY DONE 08-06-23 Performed By: #### L 501.9520, L100.0100, L500.4050 #### [facility] [address] [place], [address] Creatinine [Mass/Vol] 1.03 mg/dL High 0.55-1.02 [facility] Comment on above: Order Comment: DR. Nuha PEÑA WAS ALREADY DONE 08-06-23 Result Comment: The validity of the calculated GFR GFRAA in patients over 70 years has not been determined. Clinical correlation is essential. Performed By: #### L 501.9520, L100.0100, L500.4050 #### [facility] [address] [place], [address] EST GFR - AA 69 mL/min Normal >60 [facility] Comment on above: Order Comment: DR. Nuha PEÑA WAS ALREADY DONE 08-06-23 Result Comment: Afri can [place] GFR Calc Performed By: #### L 501.9520, L100.0100, L500.4050 #### [facility] [address] [place], [address] GAP 9 Normal 5-15 [facility] Comment on above: Order Comment: DR. Nuha PEÑA WAS ALREADY DONE 08-06-23 Performed By: #### L 501.9520, L100.0100, L500.4050 #### [facility] [address] [place], [address] GFR/1.73 sq M.predicted among non-blacks MDRD (S/P/Bld) [Vol rate/Area] 57 mL/min/{1.73_m2} Low >60 [facility] Comment on above: Order Comment: DR. Nuha PEÑA WAS ALREADY DONE 08-06-23 Result Comment: Non- GFR Calc Performed By: #### L 501.9520, L100.0100, L500.4050 #### [facility] [address] [place], [address] Globulin (S) [Mass/Vol] 3.7 g/dL Normal 2.2-4.2 [facility] Comment on above: Order Comment: DR. Nuha PEÑA WAS ALREADY DONE 5--24 Performed By: #### L 501.9520, L100.0100, L500.4050 #### [facility] [address] [place], [address] Glucose [Mass/Vol] 98 mg/dL Normal 74-106 [facility] Comment on above: Order Comment: DR. Nuha PEÑA WAS ALREADY DONE 08-06-23 Performed By: #### L 501.9520, L100.0100, L500.4050 #### [facility] [address] [place], [address] Potassium [Moles/Vol] 3.3 mmol/L Low 3.5-5.1 [facility] Comment on above: Order Comment: DR. Nuha PEÑA WAS ALREADY DONE -04-30 Performed By: #### L 501.9520, L100.0100, L500.4050 #### [facility] [address] [place], [address] Sodium [Moles/Vol] 141 mmol/L Normal 136-145 [facility] Comment on above: Order Comment: DR. Nuha PEÑA WAS ALREADY DONE 5-24 Performed By: #### L 501.9520, L100.0100, L500.4050 #### [facility] [address] [place], [address] T PROT 7.4 g/dL Normal 6.4-8.2 [facility] Comment on above: Order Comment: DR. Nuha PEÑA WAS ALREADY DONE 5-24 Performed By: #### L 501.9520, L100.0100, L500.4050 #### [facility] [address] [place], [address] Urea nitrogen [Mass/Vol] 27 mg/dL High 7-18 [facility] Comment on above: Order Comment: DR. Nuha CHE ORDER WAS ALREADY DONE 08-06-23 Performed By: #### L 501.9520, L100.0100, L500.4050 #### [facility] [address] [place], [address] Erythrocyte Sed Rateon 01-11 SED RATE 6 mm/hr Normal 0-30 [facility] Comment on above: Performed By: #### L 501.9520, L100.0100, L500.4050 #### [facility] [address] [place], [address] Hepatitis B Surface Antibody on 01-12-2024 HEP B Surf Ab Non-Reactive Normal [facility] Comment on above: Result Comment: Non Reactive: Inconsistent with immunity less than <10 mIU/mL Reactive: Consistent with immunity greater than or equal to 10 mIU/mL Performed By: #### L 501.9520, L100.0100, L500.4050 #### [facility] [address] [place], [address] Hepatitis B Surface Antigeno n 01-12-2024 HEP B Surf Ag Non-Reactive Normal Nonreactive [facility] Comment on above: Performed By: #### L 501.9520, L100.0100, L500.4050 #### [facility] [address] [place], [address] Hepatitis C Antibodyon 01-11 Hepatitis C AB Non-Reactive Normal Nonreactive [facility] Comment on above: Result Comment: Non Reactive: < 0.8 Equivocal: >/= 0.8 to < 1.0 Reactive: >/= 1.0 The CDC requires that a reactive/equivocal HCV antibody result be sent out for confirmation. HCV Quant by PCR testing. Performed By: #### L 501.9520, L100.0100, L500.4050 #### [facility] [address] [place], [place], [address] Pelvis 1 or 2 Viewson 2023 Pelvis 1 or 2 Views [facility] [address] [place] [address] Pelvis 1 or 2 Views MR#: [id number] Acct: [id number] Name: GINETTE MACKENZIE Rep #: [id number] : [id number] F 63 From: [place] PCP: Dr. Win Matos MD Status: REG CLI Study: Pelvis 1 or 2 Views Date of Exam: 01/12/24 Exam# [id number] Ordering Dr: Kristin Mckay MD 488:[id number] INDICATION: INFLAMMATORY POLYARTHROPATHY EXAMINATION/TECHNIQUE: X-RAY - XR [...] Kristin Mckay MD; Dr. Win Matos MD Management Manager: Signed Normal [facility] Absolute lymphocyte countOrd ered By: Chaitanya Leblanc on 08-06-2023 Lymphocytes Auto (Unsp spec) [#/Vol] 1.25 10*3/uL 0.83-4.51 [facility] Automated lymphocyte count a s percentage of total leukocytesOrdered By: Chaitanya Leblanc on 08-06-2023 Lymphocytes/100 WBC Auto (Unsp spec) 16.9 % 19-41 [facility] Basophil percentageOrdered B y: Chaitanya Leblanc on 08-06-2023 Basophils/100 WBC (Bld) 0.5 % 0-1 [facility] Bilirubin [Mass/Vol] 0.40 mg/dL 0.20-1.00 [facility] Comment on above: For patients on eltr ombopag therapy, use of Dimension Hugo TBIL is not recommended. Chloride [Moles/Vol] 105 mmol/L 98-107 [facility] Eosinophils/100 WBC (Bld) 1.2 % 0-5 [facility] Glucose [Mass/Vol] 120 mg/dL 74-106 [facility] Comment on above: Fasting Glucose resu lt from 100 to 125 mg/dL suggests IMPAIRED HOMEOSTASIS per A.D.A. criteria. Hemoglobin (Bld) [Mass/Vol] 12.7 g/dL 12.0-15.0 [facility] Monocytes/100 WBC (Bld) 8.0 % 0-10 [facility] Neutrophils (Bld) [#/Vol] 5.4 10*3/uL 2.0-7.7 [facility] Neutrophils/100 WBC (Bld) 73.0 % 47-70 [facility] Potassium [Moles/Vol] 3.3 mmol/L 3.5-5.1 [facility] Protein [Mass/Vol] 7.4 g/dL 6.4-8.2 [facility] Sodium [Moles/Vol] 139 mmol/L 136-145 [facility] WBC (Bld) [#/Vol] 7.4 10*3/uL 4.4-11.0 [facility] Determination of erythrocyte mean corpuscular volume (MCV)Ordered By: Chaitanya Leblanc on 08-06-2023 MCV (RBC) [Entitic vol] 86.3 fL 81-99 [facility] Erythrocyte distribution wid th ratioOrdered By: Chaitanya Leblanc on 08-06-2023 Erythrocyte distribution width (RBC) [Ratio] 12.5 % 11.6-14.6 [facility] Erythrocyte distribution wid th standard deviationOrdered By: Chaitanya Leblanc on 08-06-2023 Erythrocyte distribution width (RBC) [Entitic vol] 38.9 fL 35.1-43.9 [facility] Hematocrit Auto (Bld) [Volum e fraction]Ordered By: Chaitanya Leblanc on 08-06-2023 Hematocrit (Bld) [Volume fraction] 39.2 % 37-47 [facility] Immature granulocytes/100 WB C Auto (Bld)Ordered By: Chaitanya Leblanc on 08-06-2023 Immature granulocytes/100 WBC (Bld) 0.400 % 0.0-0.9 [facility] Comment on above: IG% - Immature Granu locytes (promyelocytes, myelocytes and metamyelocytes) > 1% indicates that a LEFT SHIFT is Present. Laboratory - Chemistry and C hemistry - challengeOrdered By: Chaitanya Leblanc on 08-06-2023 Albumin/Globulin [Mass ratio] 1.1 {ratio} 0.9-2.4 [facility] ALP [Catalytic activity/Vol] 57 U/L 45-117 [facility] ALT [Catalytic activity/Vol] 30 U/L 13-56 [facility] CO2 [Moles/Vol] 27.0 mmol/L 21.0-32.0 [facility] Globulin (S) [Mass/Vol] 3.6 g/dL 2.2-4.2 [facility] Urea nitrogen/Creatinine [Mass ratio] 13.8 mg/mg 10-20 [facility] - Hematology and Cell countsOrdered By: Chaitanya Leblanc on 08-06-2023 MCH (RBC) [Entitic mass] 28.0 pg 27.0-32.0 [facility] MCHC (RBC) [Mass/Vol] 32.4 g/dL 32-36 [facility] Nucleated RBC/100 WBC (Bld) [Ratio] 0 % 0-5 [facility] Platelet mean volume (Bld) [Entitic vol] 9.5 fL 6.2-12.0 [facility] Platelets (Bld) [#/Vol] 256 10*3/uL 150-450 [facility] No Panel InformationOrdered By: Chaitanya Leblanc on 08-06-2023 Estimated GFR (MDRD) Amer 77 mL/min >60 [facility] Comment on above: GFR Calc Estimated GFR (MDRD) Non-Af Amer 64 mL/min >60 [facility] Comment on above: Non- GFR Calc Thyroglobulin Antibody < 1.0 IU/mL 0.0-0.9 [facility] Comment on above: Thyroglobulin Antibo dy measured by Eileen CoulterMethodologyIt should be noted that the presence of thyroglobulinantibodies may not be pathogenic nor diagnostic, especiallyat very low levels. The assay monogram operator has found thatfour percent of individuals without evidence of thyroiddisease or autoimmunity will have positive TgAb levels upto 4 IU/mL. Thyroglobulin Level < 0.1 ng/mL 1.5-38.5 [facility] Comment on above: According to the [facility] [facility] [employer],the reference interval for Thyroglobulin (TG) should berelated to euthyroid patients and not for patients whounderwent thyroidectomy. TG reference intervals for thesepatients depend on the residual mass of the thyroid tissueleft after surgery. Establishing a post-operative baselineis recommended. The assay limit of quantitation is 0.1ng/mLThyroglobulin measured by [employer] ImmunometricAssayPerformed at: [facility] [id number] Director: Louis Mariee PhD, Phone: [phone] RBC Auto (Bld) [#/Vol]Ordere d By: Chaitanya Leblanc on 08-06-2023 RBC (Bld) [#/Vol] 4.54 10*6/uL 4.2-5.4 [facility] Serum or plasma calcium vazquez urement (mass/volume)Ordered By: Chaitanya Leblanc on 08-06-2023 Calcium [Mass/Vol] 9.8 mg/dL 8.5-10.1 [facility] Serum or plasma creatinine m easurement (mass/volume)Ordered By: Chaitanya Leblanc on 08-06-2023 Creatinine [Mass/Vol] 0.94 mg/dL 0.55-1.02 [facility] Comment on above: The validity of the calculated GFR & GFRAA in patients over 70 years has not been determined. Clinical correlation is essential. Serum or plasma thyroid stim ulating hormone (TSH) measurement (units/volume)Ordered By: Chaitanya Leblanc on 08-06-2023 TSH Qn 0.13 uIU/mL 0.358-3.74 [facility] Serum or plasma urea nitroge n measurement (mass/volume)Ordered By: Chaitanya Leblanc on 08-06-2023 Urea nitrogen [Mass/Vol] 13 mg/dL 7-18 [facility] Thin prep Papanicolaou smear with manual screeningOrdered By: Chaitanya Leblanc on 08-06-2023 Thin prep Papanicolaou smear with manual screening 3.8 g/dL 3.2-5.0 [facility] Thin prep Papanicolaou smear with manual screening 17 U/L 15-37 [facility] Thin prep Papanicolaou smear with manual screening 7 5-15 [facility] Thin prep Papanicolaou smear with manual screening 1.49 ng/dL 0.76-1.46 [facility] Absolute lymphocyte countOrd ered By: Louis Gilbert on 07-15-2023 Lymphocytes Auto (Unsp spec) [#/Vol] 1.26 10*3/uL 0.83-4.51 [facility] Automated lymphocyte count a s percentage of total leukocytesOrdered By: Louis Gilbert on 07-15-2023 Lymphocytes/100 WBC Auto (Unsp spec) 14.5 % 19-41 [facility] Basophil percentageOrdered B y: Louis Gilbert on 07-15-2023 Basophils/100 WBC (Bld) 0.2 % 0-1 [facility] Chloride [Moles/Vol] 106 mmol/L 98-107 [facility] Eosinophils/100 WBC (Bld) 0.9 % 0-5 [facility] Glucose [Mass/Vol] 97 mg/dL 74-106 [facility] Hemoglobin (Bld) [Mass/Vol] 11.2 g/dL 12.0-15.0 [facility] Monocytes/100 WBC (Bld) 9.8 % 0-10 [facility] Neutrophils (Bld) [#/Vol] 6.4 10*3/uL 2.0-7.7 [facility] Neutrophils/100 WBC (Bld) 74.3 % 47-70 [facility] Potassium [Moles/Vol] 3.7 mmol/L 3.5-5.1 [facility] Sodium [Moles/Vol] 139 mmol/L 136-145 [facility] WBC (Bld) [#/Vol] 8.7 10*3/uL 4.4-11.0 [facility] Determination of erythrocyte mean corpuscular volume (MCV)Ordered By: Louis Gilbert on 07-15-2023 MCV (RBC) [Entitic vol] 87.8 fL 81-99 [facility] Erythrocyte distribution wid th ratioOrdered By: Louis Gilbert on 07-15-2023 Erythrocyte distribution width (RBC) [Ratio] 13.1 % 11.6-14.6 [facility] Erythrocyte distribution wid th standard deviationOrdered By: Louis Gilbert on 07-15-2023 Erythrocyte distribution width (RBC) [Entitic vol] 42.0 fL 35.1-43.9 [facility] Hematocrit Auto (Bld) [Volum e fraction]Ordered By: Louis Gilbert on 07-15-2023 Hematocrit (Bld) [Volume fraction] 34.4 % 37-47 [facility] Immature granulocytes/100 WB C Auto (Bld)Ordered By: Louis Gilbert on 07-15-2023 Immature granulocytes/100 WBC (Bld) 0.300 % 0.0-0.9 [facility] Comment on above: IG% - Immature Granu locytes (promyelocytes, myelocytes and metamyelocytes) > 1% indicates that a LEFT SHIFT is Present. Laboratory - Chemistry and C hemistry - challengeOrdered By: Louis Gilbert on 07-15-2023 CO2 [Moles/Vol] 28.0 mmol/L 21.0-32.0 [facility] Urea nitrogen/Creatinine [Mass ratio] 15.3 mg/mg 10-20 [facility] Laboratory - Hematology and Cell countsOrdered By: Louis Gilbert on 07-15-2023 MCH (RBC) [Entitic mass] 28.6 pg 27.0-32.0 [facility] MCHC (RBC) [Mass/Vol] 32.6 g/dL 32-36 [facility] Nucleated RBC/100 WBC (Bld) [Ratio] 0 % 0-5 [facility] Platelet mean volume (Bld) [Entitic vol] 9.1 fL 6.2-12.0 [facility] Platelets (Bld) [#/Vol] 207 10*3/uL 150-450 [facility] No Panel InformationOrdered By: Louis Gilbert on 07-15-2023 Estimated Creatinine Clearance Calc 81.30 ml/min [facility] Estimated GFR (MDRD) Amer 87 mL/min >60 [facility] Comment on above: GFR Calc Estimated GFR (MDRD) Non-Af Amer 72 mL/min >60 [facility] Comment on above: Non- GFR Calc RBC Auto (Bld) [#/Vol]Ordere d By: Louis Gilbert on 07-15-2023 RBC (Bld) [#/Vol] 3.92 10*6/uL 4.2-5.4 [facility] [facility] Serum or plasma calcium vazquez urement (mass/volume)Ordered By: Louis Gilbert on 07-15-2023 Calcium [Mass/Vol] 8.8 mg/dL 8.5-10.1 [facility] Serum or plasma creatinine m easurement (mass/volume)Ordered By: Louis Gilbert on 07-15-2023 Creatinine [Mass/Vol] 0.85 mg/dL 0.55-1.02 [facility] Comment on above: The validity of the calculated GFR & GFRAA in patients over 70 years has not been determined. Clinical correlation is essential. Serum or plasma urea nitroge n measurement (mass/volume)Ordered By: Louis Gilbert on 07-15-2023 Urea nitrogen [Mass/Vol] 13 mg/dL 7-18 [facility] Thin prep Papanicolaou smear with manual screeningOrdered By: Louis Gilbert on 07-15-2023 Thin prep Papanicolaou smear with manual screening 5 5-15 [facility] Thin prep Papanicolaou smear with manual screeningOrdered By: Stiven Gunn on 07-14-2023 Thin prep Papanicolaou smear with manual screening 101 mg/dL 74-106 [facility] Comment on above: MANAGEMENT OF PATIEN T CARE PER NURSING PROTOCOL Activated partial thrombopla stin time (aPTT) in platelet poor plasma by coagulation aOrdered By: Tony Hernandez on 06-25-2023 aPTT Coag (PPP) [Time] 24.5 s 24.1-36.2 [facility] Basophil percentageOrdered B y: Tony Hernandez on 06-25-2023 Bilirubin [Mass/Vol] 0.30 mg/dL 0.20-1.00 [facility] Comment on above: For patients on eltr ombopag therapy, use of Dimension Hugo TBIL is not recommended. Protein [Mass/Vol] 6.8 g/dL 6.4-8.2 [facility] Direct bilirubinOrdered By: Tony Hernandez on 06-25-2023 Bilirubin.direct [Mass/Vol] 0.11 mg/dL 0.00-0.30 [facility] HIV 1 and HIV-2 antibody ass ay with HIV-1 p24 antigen detectionOrdered By: Stiven Gunn on 06-25-2023 HIV 1+2 Ab+HIV1 p24 Ag IA Ql Non-Reactive Nonreactive [facility] Laboratory - Chemistry and C hemistry - challengeOrdered By: Tony Hernandez on 06-25-2023 ALP [Catalytic activity/Vol] 63 U/L 45-117 [facility] ALT [Catalytic activity/Vol] 21 U/L 13-56 [facility] Globulin (S) [Mass/Vol] 3.4 g/dL 2.2-4.2 [facility] Magnesium [Mass/Vol] 2.4 mg/dL 1.6-2.6 [facility] Laboratory - CoagulationOrde red By: Tony Hernandez on 06-25-2023 INR Coag (Bld) [Relative time] 1.0 {INR} [facility] PT Coag (PPP) [Time] 12.7 s 11.7-14.9 [facility] No Panel InformationOrdered By: Stiven Gunn on 06-25-2023 Hepatitis A Antibody Total Negative Negative [facility] Comment on above: Comment: The HAV [...] HAVtotal antibody results to IgM (e.g., panel #[id number] HAVAntibody w/ Rfx).Performed at: [facility] [id number] Director: Louis Mariee PhD, Phone: [phone] Hepatitis C Antibody Non-Reactive Nonreactive [facility] Comment on above: Non Reactive: < 0.8 Equivocal: >/= 0.8 to < 1.0 Reactive: >/= 1.0The CDC requires that a reactive/equivocal HCV antibody result be sent out for confirmation. HCV Quant by PCR testing. Nasal Screen MRSA/MSSA [facility] Serum hepatitis B virus surf ignacio antibody IgG detectionOrdered By: Stiven Gunn on 06-25-2023 HBV surface IgG Ql (S) Non-Reactive [facility] Comment on above: Non Reactive: Incons istent with immunity less than <10 mIU/mL Reactive: Consistent with immunity greater than or equal to 10 mIU/mL Serum or plasma thyroid stim ulating hormone (TSH) measurement (units/volume)Ordered By: Tony Hernandez on 06-25-2023 TSH Qn 0.98 uIU/mL 0.358-3.74 [facility] Thin prep Papanicolaou smear with manual screeningOrdered By: Tony Hernandez on 06-25-2023 Thin prep Papanicolaou smear with manual screening 3.4 g/dL 3.2-5.0 [facility] Thin prep Papanicolaou smear with manual screening 13 U/L 15 [facility] CNOVon 04-21-2023 CNOV Office Visit (OBGYWM ) ----- GINETTE MACKENZIE ([id number]) 1960 F Date Time Provider Department 04/21/23 3:45 PM ANIL ORTEZ During your visit today, we recorded the following information about you: Blood pressure Weight Height 132/84 112.5 kg 1.626 m Anil Ortez APRN.CORPORATE MANAGER 04/21/2023 4:57 PM Signed Ginette is a 63 year old who presents for an annual gynecologic exam without complaints. Postmenopausal: Yes, hysterectomy 2019 - menorrhagia and cancerous cells of cervix per patient HRT use: No. Last Pap: normal 2022 HPV: negative 2022 History of abnormal pap: Yes Last mammogram: 2022 [facility] History of abnormal mammogram: Yes Sexually active: Yes History of STDS: None Hot flashes: No Night sweats: No Vaginal dryness: Yes OB History T0 L0 SAB0 IAB0 Ectopic0 Multiple0 Live Births0 Meter Installer And Remover History LMP: 07/03/2015, Hysterectomy Age at Menarche: Age at First : Age at Menopause: Meter Installer And Remover History Comments: Sexual Activity: Yes; Male; hyst Contraception: Surgical PAST MEDICAL HISTORY Diagnosis Date Arthritis GERD (gastroesophageal reflux disease) Hypertension Hypothyroidism secondary to thyroidectomy, 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 Esparza Neuropathy chronic, lower legs/feet, [...] external genitalia normal, normal Bartholin's glands, urethra, [place]'s glands, no vulvar lesions, good vaginal support, [...] guidelines of annual HPV based tests before detention surveillance for AMARJIT 2 or AMARJIT 3. Unknown details of past pap smears so pap of vaginal cuff was done. Mammogram ordered at [facility], hx of lipoma that is followed by [facility] Self breast awareness encouraged. Nutrition, exercise and [...] for clobetasol use given, not intended for terminal computer operator use Anil Ortez APRN.Anil Becerril APRN.CNP 04/21/2023 [...] the entr (more content not included)... Normal [facility] HPV W/GENOTYPE THIN PREPon 0 04-21-2023 HPV 16 Ag Ql (Unsp spec) Negative Normal Negative for HPV DNA high risk type 16 by PCR [facility] Comment on above: Order Comment: Speci men Type: FLUID SPECIMEN Ordering Facility: [facility] Address: [address] [place] [address] Performed By: #### L [id number], HPVHRT #### [facility] CLIA [id number] [address] [place] [address] [place] HPV 18 Ag Ql (Unsp spec) Negative Normal Negative for HPV DNA high risk type 18 by PCR [facility] Comment on above: Order Comment: Speci men Type: FLUID SPECIMEN Ordering Facility: [facility] Address: [address] [place] [address] Performed By: #### L [id number], HPVHRT #### [facility] CLIA [id number] [address] [place] [address] [place] HPV 31+33+35+39+45+51+52+5 6+58+59+66+68 DNA FLORINDA+probe Ql (Cvx) Negative for HPV DNA high risk types: 31,33,35,39,45,51,52,56,5 8,59,66,68 by PCR. Normal Negative for HPV DNA high risk types: 31,33,35,39, 45,51,52,56, 58,59,66,68 by PCR. [facility] Comment on above: Order Comment: Speci men Type: FLUID SPECIMEN Ordering Facility: [facility] Address: [address] [place] [address] Performed By: #### L [id number], HPVHRT #### [facility] CLIA [id number] [address] [place] [address] [place] PAP TESTon 04-21-2023 ADEQUACY Satisfactory for interpretation Normal [facility] Comment on above: Order Comment: Speci men Type: FLUID SPECIMEN Ordering Facility: [facility] Address: [address] [place] [address] Performed By: #### L [id number], HPVHRT #### [facility] CLIA [id number] [address] [place] [address] [place] CASE REPORT Normal [facility] Comment on above: Order Comment: Speci men Type: FLUID SPECIMEN Ordering Facility: [facility] Address: [address] [place] [address] Result Comment: Gyne cologic Cytology Report Case: [id number] Authorizing Provider: Anil Ortez APRN.CORPORATE MANAGER Collected: 04/21/2023 04:57 PM Ordering Location: OB/Gynecology Received: 04/22/2023 11:57 AM First Screen: Leah Fishman, CT, ASCP Rescreen: Katelynn Peck, CT, ASCP Specimen: Pap Test, ThinPrep, Vaginal Performed By: #### L [id number], HPVHRT #### [facility] CLIA [id number] [address] [place] [address] [place] CLINICAL HISTORY, CYTOLOGY, POSITIVE PRINTER OPERATOR Hysterectomy, Total Normal [facility] Comment on above: Order Comment: Speci men Type: FLUID SPECIMEN Ordering Facility: [facility] Address: [address] [place] [address] Performed By: #### L [id number], HPVHRT #### [facility] CLIA [id number] [address] [place] [address] [place] CYTOLOGY PAP OTHER INT Atrophic specimen Normal [facility] Comment on above: Order Comment: Speci men Type: FLUID SPECIMEN Ordering Facility: [facility] Address: [address] [place] [address] Performed By: #### L [id number], HPVHRT #### [facility] CLIA [id number] [address] [place] [address] [place] FINAL PERFORMING LAB Normal [facility] Comment on above: Order Comment: Speci men Type: FLUID SPECIMEN Ordering Facility: [facility] Address: [address] [place] [address] Result Comment: Tech nical component, taker off screening performed at [facility], [address] [id number] CLIA# [id number] Diagnostic interpretation performed at [facility], [address] [id number] CLIA# [id number] Shrimp Trawler Captain: Edward Belle M.D. Performed By: #### L [id number], HPVHRT #### [facility] CLIA [id number] [address] [place] [address] [place] HPV REFLEX Yes HPV Normal [facility] Comment on above: Order Comment: Speci men Type: FLUID SPECIMEN Ordering Facility: [facility] Address: [address] [place] [address] Performed By: #### L [id number], HPVHRT #### [facility] CLIA [id number] [address] [place] [address] [place] INTERPRETATION, CYTOLOGY, POSITIVE PRINTER OPERATOR Normal [facility] Comment on above: Order Comment: Speci men Type: FLUID SPECIMEN Ordering Facility: [facility] Address: [address] [place] [address] Result Comment: Nega tive for intraepithelial lesion or malignancy. Performed By: #### L [id number], HPVHRT #### [facility] CLIA [id number] [address] [place] PAP DISCLAIMER COMMENT The Pap Smear is a screening test for cervical cancer. False negative results occur with all screening tests, emphasizing the need for rescreening at recommended intervals, and clinical correlation. Normal [facility] Comment on above: Order Comment: Speci men Type: FLUID SPECIMEN Ordering Facility: [facility] Address: [address] [place] [address] Performed By: #### L [id number], HPVHRT #### [facility] CLIA [id number] [address] [place] [address] [place] PAP ASSISTANT DIRECTOR OF RESIDENCE LIFE COMMENT This specimen has be en analyzed by the ThinPrep Imaging System, an automated imaging and review system, which assists the laboratory in evaluating cells on ThinPrep Pap tests. Following automated imaging, selected weston from every slide are reviewed by a taker off. Normal [facility] Comment on above: Order Comment: Speci men Type: FLUID SPECIMEN Ordering Facility: [facility] Address: [address] [place] [address] Performed By: #### L [id number], HPVHRT #### [facility] CLIA [id number] [address] [place] [address] [place] Laboratory - Microbiology an d Antimicrobial susceptibilityOrdered By: Win Matos on 03-17-2023 SARS-CoV-2 (COVID-19) RNA FLORINDA+probe Ql (Unsp spec) [facility] SARS-CoV-2 (COVID-19) RNA FLORINDA+probe Ql (Unsp spec) [facility] No Panel InformationOrdered By: Win Matos on 03-17-2023 Influenza Types A,B Direct FA (ROBERT) [facility] Influenza Types A,B Direct FA (ROBERT) [facility] RSV Ag EIAOrdered By: Win tovar on 03-17-2023 RSV Ag Immune stain Ql (Tiss) [facility] RSV Ag Immune stain Ql (Tiss) [facility] Absolute lymphocyte countOrd ered By: Win Matos on 12-30-2022 Lymphocytes Auto (Unsp spec) [#/Vol] 2.15 10*3/uL 0.83-4.51 [facility] Basophil percentageOrdered B y: Win Matos on 12-30-2022 Basophils/100 WBC (Bld) 0.8 % 0-1 [facility] Bilirubin [Mass/Vol] 0.40 mg/dL 0.20-1.00 [facility] Comment on above: For patients on eltr ombopag therapy, use of Dimension Hugo TBIL is not recommended. Chloride [Moles/Vol] 103 mmol/L 98-107 [facility] Eosinophils/100 WBC (Bld) 1.8 % 0-5 [facility] Glucose [Mass/Vol] 86 mg/dL 74-106 [facility] Neutrophils (Bld) [#/Vol] 4.2 10*3/uL 2.0-7.7 [facility] Neutrophils/100 WBC (Bld) 57.9 % 47-70 [facility] Potassium [Moles/Vol] 3.6 mmol/L 3.5-5.1 [facility] Protein [Mass/Vol] 7.4 g/dL 6.4-8.2 [facility] Sodium [Moles/Vol] 138 mmol/L 136-145 [facility] WBC (Bld) [#/Vol] 7.3 10*3/uL 4.4-11.0 [facility] Blood erythrocytes count (nu mber/volume)Ordered By: Win Matos on 12-30-2022 RBC (Bld) [#/Vol] 4.74 10*6/uL 4.2-5.4 [facility] Blood hemoglobin measurement (mass/volume)Ordered By: Win Matos on 12-30-2022 Hemoglobin (Bld) [Mass/Vol] 13.4 g/dL 12.0-15.0 [facility] Blood lymphocytes/100 leukoc ytesOrdered By: Win Matos on 12-30-2022 Lymphocytes/100 WBC (Bld) 29.6 % 19-41 [facility] Blood monocytes/100 leukocyt esOrdered By: Win Matos on 12-30-2022 Monocytes/100 WBC (Bld) 9.6 % 0-10 [facility] Blood platelet mean volumeOr dered By: Win Matos on 09-25-2023 Platelet mean volume (Bld) [Entitic vol] 10.7 fL 6.2-12.0 [facility] Determination of erythrocyte mean corpuscular volume (MCV)Ordered By: Win Matos on 12-30-2022 MCV (RBC) [Entitic vol] 87.3 fL 81-99 [facility] Hematocrit Auto (Bld) [Volum e fraction]Ordered By: Win Matos on 12-30-2022 Hematocrit (Bld) [Volume fraction] 41.4 % 37-47 [facility] Laboratory - Chemistry and C hemistry - challengeOrdered By: Win Matos on 12-30-2022 ALP [Catalytic activity/Vol] 70 U/L 45-117 [facility] ALT [Catalytic activity/Vol] 27 U/L 13-56 [facility] CO2 [Moles/Vol] 31.0 mmol/L 21.0-32.0 [facility] Globulin (S) [Mass/Vol] 3.7 g/dL 2.2-4.2 [facility] Urea nitrogen/Creatinine [Mass ratio] 25.9 mg/mg 10-20 [facility] Laboratory - Hematology and Cell countsOrdered By: Win Matos on 12-30-2022 Erythrocyte distribution width (RBC) [Entitic vol] 39.9 fL 35.1-43.9 [facility] Erythrocyte distribution width (RBC) [Ratio] 12.5 % 11.6-14.6 [facility] Immature granulocytes/100 WBC (Bld) 0.300 % 0.0-0.9 [facility] Comment on above: IG% - Immature Granu locytes (promyelocytes, myelocytes and metamyelocytes) > 1% indicates that a LEFT SHIFT is Present. MCH (RBC) [Entitic mass] 28.3 pg 27.0-32.0 [facility] Nucleated RBC/100 WBC (Bld) [Ratio] 0 % 0-5 [facility] MCHC Auto (RBC) [Mass/Vol]Or dered By: Win Matos on 12-30-2022 MCHC (RBC) [Mass/Vol] 32.4 g/dL 32-36 [facility] No Panel InformationOrdered By: Win Matos on 12-30-2022 Estimated GFR (MDRD) Amer 87 mL/min >60 [facility] Comment on above: GFR Calc Estimated GFR (MDRD) Non-Af Amer 72 mL/min >60 [facility] Comment on above: Non- GFR Calc Thyroid Stimulating Hormone (TSH) 0.64 uIU/mL 0.358-3.74 [facility] Platelets bldOrdered By: Win Matos on 12-30-2022 Platelets (Bld) [#/Vol] 237 10*3/uL 150-450 [facility] Serum or plasma albumin vazquez urement (mass/volume)Ordered By: Win Matos on 12-30-2022 Albumin [Mass/Vol] 3.7 g/dL 3.2-5.0 [facility] Serum or plasma albumin/glob ulin mass ratioOrdered By: Win Matos on 12-30-2022 Albumin/Globulin [Mass ratio] 1.0 {ratio} 0.9-2.4 [facility] Serum or plasma calcium vazquez urement (mass/volume)Ordered By: Win Matos on 12-30-2022 Calcium [Mass/Vol] 9.0 mg/dL 8.5-10.1 [facility] Serum or plasma creatinine m easurement (mass/volume)Ordered By: Win Matos on 12-30-2022 Creatinine [Mass/Vol] 0.85 mg/dL 0.55-1.02 [facility] Comment on above: The validity of the calculated GFR & GFRAA in patients over 70 years has not been determined. Clinical correlation is essential. Serum or plasma urea nitroge n measurement (mass/volume)Ordered By: Win Matos on 12-30-2022 Urea nitrogen [Mass/Vol] 22 mg/dL 7-18 [facility] Thin prep Papanicolaou smear with manual screeningOrdered By: Win Matos on 12-30-2022 Thin prep Papanicolaou smear with manual screening 15 U/L 15-37 [facility] Thin prep Papanicolaou smear with manual screening 4 5-15 [facility] Cervical or vagninal specime n microscopic examination by cytology stain (reported asOrdered By: Dr. Puente on 09-25-2022 Cytology report Cyto stain Doc (Cvx/Vag) Comment . [facility] Comment on above: The Pap smear [...] DNA Probe+sig amp Ql (Cvx) Negative Negative [facility] Comment on above: This nucleic acid am plification test detects fourteen high- risk HPV types (16,18,31,33,35,39,45,51,52,56,58,59,66,68)without differentiation. Laboratory - CytologyOrdered By: Dr. Puente on 09-25-2022 Crusher Tender Cyto stain Nom (Cvx/Vag) [ID] Comment . [facility] Comment on above: William Gusman totechnologist (ASCP) Laboratory - Miscellaneous t estsOrdered By: Dr. Puente on 09-25-2022 Service comment (Unsp spec) [Interp] Comment . [facility] Comment on above: This liquid based Th inPrep(R) pap test was screened withthe use of an image guided system. Service comment (Unsp spec) [Interp] . . [facility] Liquid-based cerv Pap + CT/G C by FLORINDA w reflex to high-risk HPV for ASCUSOrdered By: Dr. Puente on 09-25-2022 Cytology report Cyto stain.thin prep Doc (Cvx/Vag) Comment . [facility] Comment on above: Criteria not met, HP V Genotype not performed.Performed at: - [address] [id number] Director: Graciela Knihgt MD, Phone: [phone] at: =[facility]co[address] [id number] Director: Graciela Knight MD, Phone: [phone] No Panel InformationOrdered By: Dr. Puente on 09-25-2022 Pathology report final diagnosis Narrative Comment . [facility] Comment on above: NEGATIVE FOR INTRAEP ITHELIAL LESION OR MALIGNANCY.CELLULAR CHANGES ASSOCIATED WITH ATROPHY AND INFLAMMATION ARE PRESENT. Absolute lymphocyte countOrd ered By: Dr. Leblanc on 07-10-2022 Lymphocytes Auto (Unsp spec) [#/Vol] 2.28 10*3/uL 0.83-4.51 [facility] Basophil percentageOrdered B y: Dr. Leblanc on 07-10-2022 Basophils/100 WBC (Bld) 0.6 % 0-1 [facility] Bilirubin [Mass/Vol] 0.20 mg/dL 0.20-1.00 [facility] Comment on above: For patients on eltr ombopag therapy, use of Dimension Hugo TBIL is not recommended. Chloride [Moles/Vol] 105 mmol/L 98-107 [facility] Eosinophils/100 WBC (Bld) 2.1 % 0-5 [facility] Glucose [Mass/Vol] 101 mg/dL 74-106 [facility] Comment on above: Fasting Glucose resu lt from 100 to 125 mg/dL suggests IMPAIRED HOMEOSTASIS per A.D.A. criteria. Neutrophils (Bld) [#/Vol] 4.0 10*3/uL 2.0-7.7 [facility] Neutrophils/100 WBC (Bld) 56.4 % 47-70 [facility] Potassium [Moles/Vol] 3.7 mmol/L 3.5-5.1 [facility] Protein [Mass/Vol] 6.8 g/dL 6.4-8.2 [facility] Sodium [Moles/Vol] 138 mmol/L 136-145 [facility] WBC (Bld) [#/Vol] 7.1 10*3/uL 4.4-11.0 [facility] Blood erythrocytes count (nu mber/volume)Ordered By: Dr. Leblanc on 07-10-2022 RBC (Bld) [#/Vol] 4.79 10*6/uL 4.2-5.4 [facility] Blood hemoglobin measurement (mass/volume)Ordered By: Dr. Leblanc on 07-10-2022 Hemoglobin (Bld) [Mass/Vol] 13.2 g/dL 12.0-15.0 [facility] Blood lymphocytes/100 leukoc ytesOrdered By: Dr. Leblanc on 07-10-2022 Lymphocytes/100 WBC (Bld) 32.2 % 19-41 [facility] Blood monocytes/100 leukocyt esOrdered By: Dr. Leblanc on 07-10-2022 Monocytes/100 WBC (Bld) 8.6 % 0-10 [facility] Blood platelet mean volumeOr dered By: Dr. Leblanc on 07-10-2022 Platelet mean volume (Bld) [Entitic vol] 10.6 fL 6.2-12.0 [facility] Determination of erythrocyte mean corpuscular volume (MCV)Ordered By: Dr. Leblanc on 07-10-2022 MCV (RBC) [Entitic vol] 85.6 fL 81-99 [facility] Hematocrit Auto (Bld) [Volum e fraction]Ordered By: Dr. Leblanc on 07-10-2022 Hematocrit (Bld) [Volume fraction] 41.0 % 37-47 [facility] Laboratory - Chemistry and C hemistry - challengeOrdered By: Dr. Leblanc on 07-10-2022 ALP [Catalytic activity/Vol] 63 U/L 45-117 [facility] ALT [Catalytic activity/Vol] 24 U/L 13-56 [facility] CO2 [Moles/Vol] 27.0 mmol/L 21.0-32.0 [facility] Free T4 [Mass/Vol] 1.11 ng/dL 0.76-1.46 [facility] Globulin (S) [Mass/Vol] 3.1 g/dL 2.2-4.2 [facility] Urea nitrogen/Creatinine [Mass ratio] 29.9 mg/mg 10-20 [facility] Laboratory - Hematology and Cell countsOrdered By: Dr. Leblanc on 07-10-2022 Erythrocyte distribution width (RBC) [Entitic vol] 39.8 fL 35.1-43.9 [facility] Erythrocyte distribution width (RBC) [Ratio] 12.9 % 11.6-14.6 [facility] Immature granulocytes/100 WBC (Bld) 0.100 % 0.0-0.9 [facility] Comment on above: IG% - Immature Granu locytes (promyelocytes, myelocytes and metamyelocytes) > 1% indicates that a LEFT SHIFT is Present. MCH (RBC) [Entitic mass] 27.6 pg 27.0-32.0 [facility] Nucleated RBC/100 WBC (Bld) [Ratio] 0 % 0-5 [facility] Auto (RBC) [Mass/Vol]Or dered By: Dr. Leblanc on 07-10-2022 MCHC (RBC) [Mass/Vol] 32.2 g/dL 32-36 [facility] [facility] No Panel InformationOrdered By: Dr. Leblanc on 07-10-2022 Estimated GFR (MDRD) Amer 85 mL/min >60 [facility] Comment on above: GFR Calc Estimated GFR (MDRD) Non-Af Amer 70 mL/min >60 [facility] Comment on above: Non- GFR Calc Thyroglobulin Antibody < 1.0 IU/mL 0.0-0.9 [facility] Comment on above: Thyroglobulin Antibo dy measured by Eileen CoulterMethodology Thyroglobulin Level 0.1 ng/mL 1.5-38.5 [facility] Comment on above: According to the [employer] [facility] [employer] [facility],the reference interval for Thyroglobulin (TG) should berelated to euthyroid patients and not for patients whounderwent thyroidectomy. TG reference intervals for thesepatients depend on the residual mass of the thyroid tissueleft after surgery. Establishing a post-operative baselineis recommended. The assay limit of quantitation is 0.1ng/mLThyroglobulin measured by Eileen Magnolia ImmunometricAssayPerformed at: - [facility] [place] [id number] Director: Louis Mariee PhD, Phone: [phone] Thyroid Stimulating Hormone (TSH) 1.38 uIU/mL 0.358-3.74 [facility] Platelets bldOrdered By: Dr. Leblanc on 07-10-2022 Platelets (Bld) [#/Vol] 224 10*3/uL 150-450 [facility] Serum or plasma albumin vazquez urement (mass/volume)Ordered By: Dr. Leblanc on 07-10-2022 Albumin [Mass/Vol] 3.7 g/dL 3.2-5.0 [facility] Serum or plasma albumin/glob ulin mass ratioOrdered By: Dr. Leblanc on 07-10-2022 Albumin/Globulin [Mass ratio] 1.2 {ratio} 0.9-2.4 [facility] Serum or plasma calcium vazquez urement (mass/volume)Ordered By: Dr. Leblanc on 07-10-2022 Calcium [Mass/Vol] 8.9 mg/dL 8.5-10.1 [facility] Serum or plasma creatinine m easurement (mass/volume)Ordered By: Dr. Leblanc on 07-10-2022 Creatinine [Mass/Vol] 0.87 mg/dL 0.55-1.02 [facility] Comment on above: The validity of the calculated GFR & GFRAA in patients over 70 years has not been determined. Clinical correlation is essential. Serum or plasma urea nitroge n measurement (mass/volume)Ordered By: Dr. Leblanc on 07-10-2022 Urea nitrogen [Mass/Vol] 26 mg/dL 7-18 [facility] Thin prep Papanicolaou smear with manual screeningOrdered By: Dr. Leblanc on 07-10-2022 Thin prep Papanicolaou smear with manual screening 14 U/L 15-37 [facility] Thin prep Papanicolaou smear with manual screening 6 5-15 [facility] Absolute lymphocyte counton 11-21-2021 Lymphocytes Auto (Unsp spec) [#/Vol] 2.44 10*3/uL 0.83-4.51 [facility] Work Phone: Basophil percentageon 2021 Basophils/100 WBC (Bld) 0.8 % 0-1 [facility] Work Phone: Bilirubin [Mass/Vol] 0.40 mg/dL 0.20-1.00 [facility] Work Phone: Comment on above: For patients on eltr ombopag therapy, use of Dimension Hugo TBIL is not recommended. Chloride [Moles/Vol] 105 mmol/L 98-107 [facility] Work Phone: Eosinophils/100 WBC (Bld) 2.7 % 0-5 [facility] Work Phone: Glucose [Mass/Vol] 87 mg/dL 74-106 [facility] Work Phone: Neutrophils (Bld) [#/Vol] 3.3 10*3/uL 2.0-7.7 [facility] Work Phone: [phone] Neutrophils/100 WBC (Bld) 50.0 % 47-70 [facility] Work Phone: Potassium [Moles/Vol] 4.0 mmol/L 3.5-5.1 [facility] Work Phone: Protein [Mass/Vol] 7.2 g/dL 6.4-8.2 [facility] Work Phone: [phone] Sodium [Moles/Vol] 139 mmol/L 136-145 [facility] Work Phone: WBC (Bld) [#/Vol] 6.6 10*3/uL 4.4-11.0 [facility] Work Phone: Blood erythrocytes count (nu mber/volume)on 11-21-2021 RBC (Bld) [#/Vol] 4.70 10*6/uL 4.2-5.4 [facility] Work Phone: Blood hemoglobin measurement (mass/volume)on 11-21-2021 Hemoglobin (Bld) [Mass/Vol] 12.8 g/dL 12.0-15.0 [facility] Work Phone: [phone] Blood lymphocytes/100 leukoc yteson 11-21-2021 Lymphocytes/100 WBC (Bld) 37.1 % 19-41 [facility] Work Phone: [phone] Blood monocytes/100 leukocyt eson 11-21-2021 Monocytes/100 WBC (Bld) 9.1 % 0-10 [facility] Work Phone: [phone] Blood platelet mean volumeon 11-21-2021 Platelet mean volume (Bld) [Entitic vol] 11.2 fL 6.2-12.0 [facility] Work Phone: Determination of erythrocyte mean corpuscular volume (MCV)on 11-21-2021 MCV (RBC) [Entitic vol] 85.1 fL 81-99 [facility] Work Phone: Hematocrit Auto (Bld) [Volum e fraction]on 11-21-2021 Hematocrit (Bld) [Volume fraction] 40.0 % 37-47 [facility] Work Phone: Laboratory - Chemistry and C hemistry - challengeon 11-21-2021 ALP [Catalytic activity/Vol] 59 U/L 45-117 [facility] Work Phone: ALT [Catalytic activity/Vol] 28 U/L 13-56 [facility] Work Phone: CO2 [Moles/Vol] 29.0 mmol/L 21.0-32.0 [facility] Work Phone: Globulin (S) [Mass/Vol] 3.5 g/dL 2.2-4.2 [facility] Work Phone: [phone] Urea nitrogen/Creatinine [Mass ratio] 27.1 mg/mg 10-20 [facility] Work Phone: Laboratory - Hematology and Cell countson 11-21-2021 Erythrocyte distribution width (RBC) [Entitic vol] 38.8 fL 35.1-43.9 [facility] Work Phone: Erythrocyte distribution width (RBC) [Ratio] 12.6 % 11.6-14.6 [facility] Work Phone: Immature granulocytes/100 WBC (Bld) 0.300 % 0.0-0.9 [facility] Work Phone: Comment on above: IG% - Immature Granu locytes (promyelocytes, myelocytes and metamyelocytes) > 1% indicates that a LEFT SHIFT is Present. MCH (RBC) [Entitic mass] 27.2 pg 27.0-32.0 [facility] Work Phone: Nucleated RBC/100 WBC (Bld) [Ratio] 0 % 0-5 [facility] Work Phone: MCHC Auto (RBC) [Mass/Vol]on 11-21-2021 MCHC (RBC) [Mass/Vol] 32.0 g/dL 32-36 [facility]: No Panel Informationon 11-21 Estimated GFR (MDRD) Amer 76 mL/min >60 [facility] Work Phone: Comment on above: GFR Calc Estimated GFR (MDRD) Non-Af Amer 63 mL/min >60 [facility] Work Phone: Comment on above: Non- GFR Calc Thyroid Stimulating Hormone (TSH) 0.74 uIU/mL 0.358-3.74 [facility] Work Phone: Platelets bldon 11-21-2021 Platelets (Bld) [#/Vol] 242 10*3/uL 150-450 [facility] Work Phone: Serum or plasma albumin vazquez urement (mass/volume)on 11-21-2021 Albumin [Mass/Vol] 3.7 g/dL 3.2-5.0 [facility] Work Phone: Serum or plasma albumin/glob ulin mass ratioon 11-21-2021 Albumin/Globulin [Mass ratio] 1.1 {ratio} 0.9-2.4 [facility] Work Phone: Serum or plasma calcium vazquez urement (mass/volume)on 11-21-2021 Calcium [Mass/Vol] 8.8 mg/dL 8.5-10.1 [facility] Work Phone: Serum or plasma creatinine m easurement (mass/volume)on 11-21-2021 Creatinine [Mass/Vol] 0.96 mg/dL 0.55-1.02 [facility] Work Phone: Comment on above: The validity of the calculated GFR & GFRAA in patients over 70 years has not been determined. Clinical correlation is essential. Serum or plasma urea nitroge n measurement (mass/volume)on 11-21-2021 Urea nitrogen [Mass/Vol] 26 mg/dL 7-18 [facility] Work Phone: Thin prep Papanicolaou smear with manual screeningon 11-21-2021 Thin prep Papanicolaou smear with manual screening 13 U/L 15-37 [facility] Work Phone: Thin prep Papanicolaou smear with manual screening 5 5-15 [facility] Work Phone: No Panel Informationon 08-04 Thyroid Stimulating Hormone (TSH) 0.73 uIU/mL 0.358-3.74 [facility] Work Phone: [facility] - GOLDon 12-21-2020 [facility]CER CARE PROT[facility] Comment on above: Performed By: #### L ABTCCPGOLD #### [facility] (DEFAULT) [address] [place] [address] [facility] - Viktor 12-21-2020 CANCER CARE PROTOCOL [facility] Comment on above: Performed By: #### L ABTCCPLAV #### [facility] (DEFAULT) [address] [place] [address] THYROGLOBULIN&THYROGLOBULIN ABon 12-21-2020 THYROGLOBULIN ANTIBODY <1.8 Normal <1.8 [facility] Comment on above: Performed By: #### T HYBAT #### [facility] (DEFAULT) [address] [place] [id number] Thyroglobulin Interpretation SEE [facility] Comment on above: Result Comment: Thyr [...] testing methods are immunoenzymatic assays manufactured by [employer] and performed on the [employer] DXI 800. Values obtained from different assay methods or kits may be different and cannot be used interchangeably. The results cannot be interpreted as absolute evidence for the presence or absence of malignant disease. Test Performed by: [facility] [address] [place] [address] Farm Helper: Justin Sampson M.D. Ph.D.; CLIA# [id number] Performed By: #### T HYBAT #### [facility] (DEFAULT) [address] [address] Thyroglobulin, Tumor Marker <0.1 Normal [facility] Comment on above: Result Comment: REFERENCE VALUE Athyrotic <0.1 Intact Thyroid <=33 Performed By: #### T HYBAT #### [facility] (DEFAULT) [address] [address] TSHon 12-21-2020 TSH 0.618 uIU/mL Normal 0.550-4.780 [facility] Comment on above: Performed By: #### T SH #### [facility] (DEFAULT) [address] [place] [address] Vital Signs Date Time Vital Sign Value Performing Clinician Delgado pedraza 12-13-2024 11:15-0400 Body height 162.[address] Win Matos MD Work Phone: [facility] 12-13-2024 11:15-0400 Body mass index (BMI) [Ratio] 41.8 kg/m2 Dr. Win Matos MD Work Phone: [facility] 12-13-2024 11:15-0400 Body temperature 97.8 [degF] Dr. Win Matos MD Work Phone: [facility] 12-13-2024 11:15-0400 Body weight 110.[address] Win Matos MD Work Phone: [facility] 12-13-2024 11:15-0400 Diastolic blood pressure 78 mm[Hg] Dr. Win Matos MD Work Phone: [facility] 12-13-2024 11:15-0400 Heart rate 69 /min Dr. Win Matos MD Work Phone: 2(111)426-970456 [place] [address] 12-13-2024 11:15-0400 Respiratory rate 18 /min Dr. Win Matos MD Work Phone: 7(718)771-708256 [place] [address] 12-13-2024 11:15-0400 SaO2% (BldA) [Mass fraction] 98 % Dr. Win Matos MD Work Phone: 6(956)467-670656 [place] [address] 12-13-2024 11:15-0400 Systolic blood pressure 126 mm[Hg] Dr. Win Matos MD Work Phone: 3(671)114-723856 [place] [address] 10-18-2024 10:44-0400 Body height 162.[address] Win Matos MD Work Phone: 4(666)588-797856 [place] [address] 10-18-2024 10:44-0400 Body mass index (BMI) [Ratio] 40.7 kg/m2 Dr. Win Matos MD Work Phone: 4(345)235-926056 [place] [address] 10-18-2024 10:44-0400 Body temperature 98.6 [degF] Dr. Win Matos MD Work Phone: 0(631)151-180356 [place] [address] 10-18-2024 10:44-0400 Body weight 107.[address] Win Matos MD Work Phone: 1(250)406-462856 [place] [address] 10-18-2024 10:44-0400 Diastolic blood pressure 78 mm[Hg] Dr. Win Matos MD Work Phone: 7(052)135-378556 [place] [address] 10-18-2024 10:44-0400 Heart rate 73 /min Dr. Win Matos MD Work Phone: 1(000)038-142456 [place] [address] 10-18-2024 10:44-0400 Respiratory rate 16 /min Dr. Win Matos MD Work Phone: 8(485)012-309156 [place] [address] 10-18-2024 10:44-0400 SaO2% (BldA) [Mass fraction] 98 % Dr. Win Matos MD Work Phone: 6(716)527-893556 [place] [address] 10-18-2024 10:44-0400 Systolic blood pressure 132 mm[Hg] Dr. Win Matos MD Work Phone: 6(585)912-083656 [place] [address] 10-18-2024 08:22-0400 Body height 162.[address] Win Matos MD Work Phone: 8(840)496-607956 [place] [address] 10-18-2024 08:22-0400 Body mass index (BMI) [Ratio] 41.1 kg/m2 Dr. Win Matos MD Work Phone: 5(579)772-733856 [place] [address] 10-18-2024 08:22-0400 Body weight 108.[address] Win Matos MD Work Phone: 6(638)892-626356 [place] [address] 10-08-2024 12:06-0400 Body temperature 98.8 [degF] Dr. Win Matos MD Work Phone: 3(216)873-273756 [place] [address] 10-08-2024 12:06-0400 Diastolic blood pressure 89 mm[Hg] Dr. Win Matos MD Work Phone: 9(202)214-493556 [place] [address] 10-08-2024 12:06-0400 Heart rate 55 /min Dr. Win Matos MD Work Phone: 6(820)175-881156 [place] [address] 10-08-2024 12:06-0400 Respiratory rate 18 /min Dr. Win Matos MD Work Phone: 1(224)965-227156 [place] [address] 10-08-2024 12:06-0400 SaO2% (BldA) [Mass fraction] 95 % Dr. Win Matos MD Work Phone: 1(767)551-086956 [place] [address] 10-08-2024 12:06-0400 Systolic blood pressure 132 mm[Hg] Dr. Win Matos MD Work Phone: 5(774)045-944556 [place] [address] 10-08-2024 08:26-0400 Body height 162.[address] Win Matos MD Work Phone: 8(118)341-686856 [place] [address] 10-08-2024 08:26-0400 Body mass index (BMI) [Ratio] 41.3 kg/m2 Dr. Wni Matos MD Work Phone: [facility] 10-08-2024 08:26-0400 Body weight 109.[address] Win Matos MD Work Phone: [facility] 10-06-2024 10:30-0400 Body height 162.[address] Win Matos MD Work Phone: 2(357)397-557756 [place] [address] 10-06-2024 10:30-0400 Body mass index (BMI) [Ratio] 41.8 kg/m2 Dr. Win Matos MD Work Phone: 2(003)304-806756 [place] [address] 10-06-2024 10:30-0400 Body temperature 98.4 [degF] Dr. Win Matos MD Work Phone: 6(199)225-191156 [place] [address] 10-06-2024 10:30-0400 Body weight 110.[address] Win Matos MD Work Phone: 5(293)887-332456 [place] [address] 10-06-2024 10:30-0400 Diastolic blood pressure 86 mm[Hg] Dr. Win Matos MD Work Phone: 4(762)388-830456 [place] [address] 10-06-2024 10:30-0400 Heart rate 65 /min Dr. Win Matos MD Work Phone: [facility] 10-06-2024 10:30-0400 Respiratory rate 16 /min Dr. Win Matos MD Work Phone: [facility] 10-06-2024 10:30-0400 SaO2% (BldA) [Mass fraction] 96 % Dr. Win Matos MD Work Phone: [facility] 10-06-2024 10:30-0400 Systolic blood pressure 133 mm[Hg] Dr. Win Matos MD Work Phone: 7(278)369-281656 [place] [address] 10-04-2024 08:05-0400 Body height 162.[address] Win Matos MD Work Phone: [facility] 10-04-2024 08:05-0400 Body mass index (BMI) [Ratio] 41.1 kg/m2 Dr. Win Matos MD Work Phone: 8(473)428-188756 [place] [address] 10-04-2024 08:05-0400 Body weight 108.[address] Win Matos MD Work Phone: 6(265)952-738656 [place] [address] 09-30-2024 09:06-0400 Body height 162.[address] Win Matos MD Work Phone: 3(168)990-018956 [place] [address] 09-30-2024 09:04-0400 Body mass index (BMI) [Ratio] 41.2 kg/m2 Dr. Win Matos MD Work Phone: 3(469)068-473556 [place] [address] 09-30-2024 09:04-0400 Body temperature 98.1 [degF] Dr. Win Matos MD Work Phone: 0(434)323-238856 [place] [address] 09-30-2024 09:04-0400 Body weight 108.[address] Win Matos MD Work Phone: 1(815)910-440656 [place] [address] 09-30-2024 09:04-0400 Diastolic blood pressure 72 mm[Hg] Dr. Win Matos MD Work Phone: 8(199)424-815956 [place] [address] 09-30-2024 09:04-0400 Heart rate 87 /min Dr. Win Matos MD Work Phone: 6(986)116-734556 [place] [address] 09-30-2024 09:04-0400 Respiratory rate 18 /min Dr. Win Matos MD Work Phone: 3(869)422-467556 [place] [address] 09-30-2024 09:04-0400 SaO2% (BldA) [Mass fraction] 94 % Dr. Win Matos MD Work Phone: 7(338)772-315256 [place] [address] 09-30-2024 09:04-0400 Systolic blood pressure 106 mm[Hg] Dr. iWn Matos MD Work Phone: 8(953)517-467356 [place] [address] 03-19-2024 10:15-0500 Body height 162.[address] Win Matos MD Work Phone: 8(701)317-670956 [place] [address] 03-19-2024 10:15-0500 Body mass index (BMI) [Ratio] 41.8 kg/m2 Dr. Win Matos MD Work Phone: [facility] 03-19-2024 10:15-0500 Body weight 110.[address] Win Matos MD Work Phone: [facility] 03-19-2024 10:15-0500 Diastolic blood pressure 75 mm[Hg] Dr. Win Matos MD Work Phone: [facility] 03-19-2024 10:15-0500 Heart rate 85 /min Dr. Win Matos MD Work Phone: [facility] 03-19-2024 10:15-0500 SaO2% (BldA) [Mass fraction] 95 % Dr. Win Matos MD Work Phone: [facility] 03-19-2024 10:15-0500 Systolic blood pressure 108 mm[Hg] Dr. Win Matos MD Work Phone: [facility] 07-19-2023 21:23-0400 Body temperature 97 [degF] Dr. Win Matos Work Phone: [facility] 07-19-2023 21:23-0400 Diastolic blood pressure 91 mm[Hg] Dr. Win Matos Work Phone: [facility] 07-19-2023 21:23-0400 Heart rate 88 /min Dr. Win Matos Work Phone: [facility] 07-19-2023 21:23-0400 Respiratory rate 18 /min Dr. Win Matos Work Phone: [facility] 07-19-2023 21:23-0400 SaO2% (BldA) [Mass fraction] 98 % Dr. Win Matos Work Phone: [facility] 07-19-2023 21:23-0400 Systolic blood pressure 130 mm[Hg] Dr. Win Matos Work Phone: [facility] 07-19-2023 20:54-0400 Body mass index (BMI) [Ratio] 30.9 kg/m2 Dr. Win Matos Work Phone: [facility] 07-19-2023 20:54-0400 Body weight 81.[address] Win Matos Work Phone: [facility] 07-19-2023 18:54-0400 Body height 162.[address] Win Matos Work Phone: [facility] 07-15-2023 08:00-0400 Body temperature 98 [degF] Dr. Win Matos Work Phone: 1(748)092-155656 [place] [address] 07-15-2023 08:00-0400 Diastolic blood pressure 76 mm[Hg] Dr. Win Matos Work Phone: 4(921)033-660356 [place] [address] 07-15-2023 08:00-0400 Heart rate 78 /min Dr. Win Matos Work Phone: 7(192)226-067556 [place] [address] 07-15-2023 08:00-0400 Respiratory rate 15 /min Dr. Win Matos Work Phone: 7(773)082-198856 [place] [address] 07-15-2023 08:00-0400 SaO2% (BldA) [Mass fraction] 94 % Dr. Win Matos Work Phone: 7(159)208-872756 [place] [address] 07-15-2023 08:00-0400 Systolic blood pressure 127 mm[Hg] Dr. Win Matos Work Phone: 0(410)347-203356 [place] [address] 07-14-2023 16:05-0400 Inhaled oxygen flow rate 4 L/min Dr. Win Matos Work Phone: 8(115)894-901856 [place] [address] 07-14-2023 15:51-0400 Body height 162.[address] Win Matos Work Phone: 3(437)193-199456 [place] [address] 07-14-2023 15:51-0400 Body mass index (BMI) [Ratio] 40.8 kg/m2 Dr. Win Matos Work Phone: 9(378)036-059956 [place] [address] 07-14-2023 15:51-0400 Body weight [address] Win Matos Work Phone: 3(563)448-891556 [place] [address] 06-13-2023 09:42-0500 Body mass index (BMI) [Ratio] 41.1 kg/m2 Dr. Win Matos Work Phone: 5(021)537-479856 [place] [address] 06-13-2023 09:42-0500 Body weight 108.[address] Win Matos Work Phone: 5(272)307-336156 [place] [address] 06-13-2023 09:42-0500 Diastolic blood pressure 80 mm[Hg] Dr. Win Matos Work Phone: 4(708)150-304356 [place] [address] 06-13-2023 09:42-0500 Heart rate 90 /min Dr. Wni Matos Work Phone: 9(208)582-224156 [place] [address] 06-13-2023 09:42-0500 Respiratory rate 18 /min Dr. Win Matos Work Phone: 7(233)699-298956 [place] [address] 06-13-2023 09:42-0500 Systolic blood pressure 120 mm[Hg] Dr. Win Matos Work Phone: 7(651)857-607256 [place] [address] 06-05-2023 15:12-0500 Body mass index (BMI) [Ratio] 41.5 kg/m2 Dr. Win Matos Work Phone: 2(350)581-028856 [place] [address] 06-05-2023 15:12-0500 Body weight 109.[address] Win Matos Work Phone: 9(000)894-074456 [place] [address] 04-17-2023 08:01-0500 Body height 162.[address] Win Matos Work Phone: 0(373)514-593656 [place] [address] 04-17-2023 08:01-0500 Body mass index (BMI) [Ratio] 42 kg/m2 Dr. Win Matos Work Phone: 8(403)803-060256 [place] [address] 04-17-2023 08:01-0500 Body weight 111.[address] Win Matos Work Phone: 1(543)174-809556 [place] [address] 04-10-2023 11:33-0500 Body height 162.[address] Win Matos Work Phone: 4(462)003-304956 [place] [address] 04-10-2023 11:33-0500 Body mass index (BMI) [Ratio] 41.3 kg/m2 Dr. Win Matos Work Phone: [facility] 04-10-2023 11:33-0500 Body temperature 97.2 [degF] Dr. Win Matos Work Phone: [facility] 04-10-2023 11:33-0500 Body weight 109.[address] Win Matos Work Phone: [facility] 04-10-2023 11:33-0500 Diastolic blood pressure 85 mm[Hg] Dr. Win Matos Work Phone: [facility] 04-10-2023 11:33-0500 Heart rate 83 /min Dr. Win Matos Work Phone: [facility] 04-10-2023 11:33-0500 Respiratory rate 16 /min Dr. Win Matos Work Phone: [facility] 04-10-2023 11:33-0500 SaO2% (BldA) [Mass fraction] 97 % Dr. Win Matos Work Phone: [facility] 04-10-2023 11:33-0500 Systolic blood pressure 125 mm[Hg] Dr. Win Matos Work Phone: [facility] 03-21-2023 16:05-0500 Body mass index (BMI) [Ratio] 42.1 kg/m2 Dr. Win Matos Work Phone: [facility] 03-21-2023 16:05-0500 Body temperature 98.9 [degF] Dr. Win Matos Work Phone: [facility] 03-21-2023 16:05-0500 Body weight 111.[address] Win Matos Work Phone: [facility] 03-21-2023 16:05-0500 Diastolic blood pressure 88 mm[Hg] Dr. Win Matos Work Phone: [facility] 03-21-2023 16:05-0500 Heart rate 70 /min Dr. Win Matos Work Phone: [facility] 03-21-2023 16:05-0500 Respiratory rate 16 /min Dr. Win Matos Work Phone: [facility] 03-21-2023 16:05-0500 SaO2% (BldA) [Mass fraction] 97 % Dr. Win Matos Work Phone: [facility] 03-21-2023 16:05-0500 Systolic blood pressure 128 mm[Hg] Dr. Win Matos Work Phone: [facility] Encounters Encounter Date Encounter Type Care Provider Facility Start: 01-07-2025 End: 01-07-[address] Abisai Roman DO -[facility] Work Phone: Start: 01-07-2025 End: 01-07-[address] Win Matos MD Work Phone: -[facility] Start: 12-13-2024 End: 12-13-[address] Barbara Vernon MD -[facility] Work Phone: Start: 12-13-2024 End: 12-13-[address] Win Matos MD Work Phone: -[facility] Start: 12-10-2024 End: 12-10-[address] Win Matos MD Work Phone: -[facility] [place] Start: 12-10-2024 End: 12-10-[address] Kristin Mckay MD -[facility] [place] Work Phone: Start: 12-10-2024 End: 12-10-2024 ambulatory Kristin Mckay Facility:[facility] Start: 11-30-2024 End: 11-30-[address] Win Matos MD Work Phone: -[facility] Start: 11-30-2024 End: 11-30-[address] Javi Lenz MD -[facility] Work Phone: Start: 11-30-2024 End: 11-30-2024 ambulatory [facility] Facility:[facility] Start: 11-25-2024 Encounter for other preprocedural examination [facility] Start: 11-22-2024 Non-patient / Non-visit Dr. Arianna RAM -[facility] Work Phone: Start: 11-22-2024 End: 11-22-[address] Win Matos MD Work Phone: -Pulmonary Services/Neurology Start: 11-22-2024 End: 11-22-[address] Javi Lenz MD -Pulmonary Services/Neurology Work Phone: Start: 11-22-2024 End: 11-22-2024 ambulatory [facility] Facility:[facility] Start: 11-19-2024 End: 11-19-[address] Win Matos MD Work Phone: -[facility] Start: 11-19-2024 End: 11-19-[address] Barbara Vernon MD -[facility] Work Phone: Start: 11-19-2024 End: 11-19-2024 ambulatory Barbara Vernon Facility:[facility] Start: 10-18-2024 End: 10-18-[address] Barbara Vernon MD -[facility] Work Phone: Start: 10-18-2024 End: 10-18-[address] Win Matos MD Work Phone: -[facility] Start: 10-18-2024 End: 10-18-[address] Abisai Roman DO -[facility] Work Phone: Start: 10-18-2024 End: 10-18-[address] Win Matos MD Work Phone: -[facility] Start: 10-11-2024 End: 10-11-[address] Abisai Roman DO [facility] Work Phone: Start: 10-11-2024 End: 10-11-[address] Win Matos MD Work Phone: [facility] Start: 10-08-2024 End: 10-08-2024 Emergency department patient visit Dr. Win Matos MD Work Phone: -Emergency Department Work Phone: Start: 10-06-2024 End: 10-06-[address] Bar Isbell MD -[facility] Work Phone: Start: 10-06-2024 End: 10-06-[address] Win Matos MD Work Phone: [facility] Start: 10-05-2024 End: 10-05-[address] Win Matos MD Work Phone: -[facility] Start: 10-05-2024 End: 10-05-[address] Javi Lenz MD -[facility] Work Phone: Start: 10-04-2024 End: 10-04-[address] Abisai Roman DO [facility] Work Phone: Start: 10-04-2024 End: 10-05-[address] Win Matos MD Work Phone: [facility] Start: 09-30-[address] Deny Isbell MD -[facility] Start: 09-30-2024 End: 09-30-[address] Bar Isbell MD -[facility] Work Phone: Start: 09-30-2024 End: 09-30-[address] Win Matos MD Work Phone: [facility] Work Phone: Start: 09-02-2024 End: 09-02-[address] Win Maots MD Work Phone: [facility] Work Phone: Start: 09-02-2024 End: 09-02-[address] Kristin Mckay MD -[facility] [place] Work Phone: Start: 09-02-2024 End: 09-02-2024 ambulatory Win Ezequiel Carlo Facility:[facility] Start: 07-14-2024 End: 07-14-[address] Win Matos MD Work Phone: [facility] Work Phone: Start: 07-14-2024 End: 07-14-[address] Win Matos MD -[facility], [place] Work Phone: Start: 07-14-2024 End: 07-14-2024 ambulatory Win Ezequiel Carlo Facility:[facility] Start: 07-06-2024 End: 07-06-[address] Win Matos MD Work Phone: [facility] Work Phone: Start: 07-06-2024 End: 07-06-[address] Chaitanya Leblanc MD -[facility] [place] Work Phone: Start: 07-06-2024 End: 07-06-2024 ambulatory Win Ezequiel Carlo Facility:[facility] Start: 06-11-2024 End: 06-11-[address] Win Matos MD Work Phone: [facility] Work Phone: Start: 06-11-2024 End: 06-11-[address] Kristin Mckay MD -[facility] [place] Work Phone: Start: 06-11-2024 End: 06-11-2024 ambulatory Win Matos Facility:[facility] Start: 05-28-2024 End: 05-28-[address] Abisai Roman DO -[facility] Work Phone: Start: 05-28-2024 End: 05-28-2024 ambulatory Win Ezequiel Matos Facility:[facility] Start: 05-17-2024 End: 05-17-[address] Win Matos MD -[facility] Work Phone: Start: 05-17-2024 End: 05-17-2024 ambulatory [facility] Facility:[facility] Start: 04-29-2024 End: 04-29-[address] Kristin Mckay MD -[facility], [place] Work Phone: Start: 04-29-2024 End: 04-29-2024 ambulatory [facility] Facility:[facility] Start: 04-19-2024 ambulatory [facility] Facility:[facility] Start: 03-19-2024 End: 03-19-[address] Chaitanya Leblanc MD -[facility] Work Phone: Start: 03-19-2024 End: 03-19-2024 ambulatory Win [facility] Facility:[facility] Start: 02-28-2024 End: 02-28-[address] Kristin Mckay MD -Laboratory Work Phone: Start: 02-28-2024 End: 02-28-2024 ambulatory [employer] Facility:[facility] Start: 02-12-2024 End: 02-12-2024 ambulatory [facility] Facility:[facility] Start: 01-12-2024 End: 01-12-2024 ambulatory [employer] Facility:[facility] Start: 08-06-2023 End: 08-06-[address] Win Matos Work Phone: [facility] Work Phone: Start: 08-06-2023 End: 08-06-[address] Win Matos Work Phone: [facility]-Laboratory, [facility] Office [address] [place] [address] Start: 07-30-2023 End: 07-30-[address] Win Matos Work Phone: [facility] Work Phone: Start: 07-29-2023 Refill Anil ORTIZ RN.CORPORATE MANAGER Work Phone: OB/Gynecology Comment on above: Refill Request Start: 07-19-2023 End: 07-19-2023 Emergency department patient visit Dr. Win Matos Work Phone: [facility]-Emergency Department Work Phone: Start: 07-19-2023 Non-patient / Non-visit Dr. Maldonado Matos Work Phone: [facility] Work Phone: Start: 07-18-2023 Non-patient / Non-visit Dr. Maldonado Matos Work Phone: [facility] Work Phone: Start: 07-15-2023 Non-patient / Non-visit Dr. Maldonado Matos Work Phone: [facility] Start: 07-14-2023 Non-patient / Non-visit Dr. Maldonado Matos Work Phone: [facility] Work Phone: Start: 07-14-2023 Non-patient / Non-visit Dr. Maldonado Matos Work Phone: [facility] Start: 07-14-2023 End: 07-15-2023 Evaluation and management of inpatient Dr. Win Matos Work Phone: [facility]-Medical Surgical 3 Work Phone: Start: 07-14-2023 End: 07-15-[address] Win Matos Work Phone: [facility] Work Phone: Start: 07-10-2023 Non-patient / Non-visit Dr. Maldonado Matos Work Phone: [facility] Start: 07-04-2023 End: 07-04-[address] Win Matos Work Phone: [facility] Work Phone: Start: 06-13-[address] Win farah Work Phone: [facility] Comment on above: From a cardiovascula [...] preprocedural examination Dr. Win Matos Work Phone: [facility] Start: 06-13-2023 End: 06-13-[address] Win Matos Work Phone: [facility] Work Phone: Start: 06-05-2023 End: 06-05-[address] Win Matos Work Phone: [facility] Work Phone: Start: 06-03-2023 End: 06-03-[address] Win Matos Work Phone: [facility] Work Phone: Start: 05-23-2023 End: 05-23-[address] Win Matos Work Phone: [facility] Work Phone: Start: 05-23-2023 End: 05-23-[address] Win Matos Work Phone: [facility]-Physical Therapy Work Phone: Start: 05-23-[address] Win casarez Work Phone: [facility]-Physical Therapy Work Phone: Start: 05-15-2023 End: 05-15-[address] Win Matos Work Phone: [facility] Work Phone: Start: 05-15-2023 End: 05-15-[address] Win Matos Work Phone: [facility]-Outpatient Breast Imaging Work Phone: Start: 05-12-[address] Win casarez Work Phone: [facility]-Physical Therapy Work Phone: Start: 05-01-2023 End: 05-01-[address] Win Matos Work Phone: [facility] Work Phone: Start: 04-26-2023 End: 04-26-[address] Win Matos Work Phone: [facility] Work Phone: Start: 04-26-2023 End: 04-26-[address] Win Matos Work Phone: [facility] Work Phone: Start: 04-21-2023 End: 04-21-2023 ambulatory [facility] Facility:[facility] Start: 04-17-2023 End: 04-17-[address] Win Matos Work Phone: [facility] Work Phone: Start: 04-10-2023 End: 04-10-2023 Emergency department patient visit Dr. Win Matos Work Phone: [facility]-Emergency Department Work Phone: Start: 03-21-2023 End: 03-21-[address] Win Matos Work Phone: [facility] Work Phone: Start: 03-17-2023 End: 03-17-2023 ambulatory [facility] Work Phone: Start: 03-17-2023 End: 03-17-2023 Patient encounter procedure [facility]-Pulmonary Services/Neurology Work Phone: Start: 12-30-2022 End: 12-30-2022 ambulatory [facility] Work Phone: Start: 12-30-2022 End: 12-30-2022 Patient encounter procedure [facility]-Laboratory, Phy Office 3rd Flr Start: 09-25-2022 End: 09-25-2022 ambulatory [facility] Work Phone: Start: 09-25-2022 End: 09-25-2022 Patient encounter procedure [facility]-Laboratory, Specimen Start: 07-10-2022 End: 07-10-2022 ambulatory [facility] Work Phone: Start: 07-10-2022 End: 07-10-2022 Patient encounter procedure [facility]-Laboratory, Phy Office 3rd Flr Start: 05-14-2022 End: 05-14-2022 Patient encounter procedure [facility]-Outpatient Breast Imaging Start: 11-21-2021 End: 11-21-2021 [facility] Start: 08-04-2021 End: 08-04-2021 Patient encounter procedure [facility]-Laboratory Start: 05-30-2021 End: 05-30-2021 Patient encounter procedure [facility]-Outpatient Breast Imaging Start: 12-21-2020 ambulatory RADHA MATOS Facility:[facility] Procedures Date Procedure Procedure Detail Performing Clinician Start: 10-08-2024 Urnls dip stick/tablet reagent auto microscopy Dr. Win Matos MD Work Phone: Start: 10-08-2024 CT of abdomen and pelvis without contrast Dr. Win Matos MD Work Phone: Start: 10-08-[address] Win casarez MD Work Phone: Start: 10-05-2024 X-ray of lumbosacral spine Dr. [...] limit of quantitation is 0.1ng/mLThyroglobulin measured by gridComm ImmunometricAssayPerformed at: [facility] [id number] Director: Louis Mariee PhD, Phone: [phone] Start: 07-06-[address] Win Matos MD Work Phone: Comment on above: Thyroglobulin Antibody measured by viblastMethodologyIt should be noted that the presence of thyroglobulinantibodies may not be pathogenic nor diagnostic, especiallyat very low levels. The assay monogram operator has found thatfour percent of individuals without [...] Screening mammography Start: 12-26-2014 Colonoscopy Anil Ortez APRN.CORPORATE MANAGER Work Phone: Start: 11-18-2014 Lipid 1996 panel - Serum or Plasma Anil Ortez APRN.CORPORATE MANAGER Work Phone: History of excision of lamina of lumbar vertebra for decompression of spinal cord History of lumbar laminectomy for spinal cord decompression Dr. Win Matos Work Phone: History of tympanostomy S/P tymp anic tube insertion Dr. Barbara Vernon MD Plan of Treatment Date Care Activity Detail Author Start: 04-21-2028 Screening for malign ant neoplasm of cervix [facility] Start: 12-26-2024 Screening for malign ant neoplasm of colon [facility] Start: 10-08-2024 [facility] Start: 04-22-2024 End: 04-22-2024 Patient encounter procedure 04/22/2024 3:45 PM EST Office Visit OB/Gynecology [address] [place], [place] [id number] Anil Ortez APRN.CORPORATE MANAGER [address] [place] [address] ANNUAL OB/Gynecology Comment on above: ANNUAL Start: 12-07-2023 Influenza vaccination Influenz a Vaccine (Season Ended) [facility] Start: 07-19-2023 [facility] Start: 07-15-2023 Patient discharge [facility] Start: 07-14-2023 Continuous pulse oximetry [facility] Start: 07-14-2023 Application of intermittent pneumatic compression device [facility] Start: 07-14-2023 Catheterization of vein [facility] Start: 07-14-2023 Consultation [facility] Start: 07-14-2023 Following clinical p [place] protocol [facility] Start: 07-14-2023 Incentive spirometry [facility] Start: 07-14-2023 Measuring intake and output [facility] Start: 07-14-2023 Neurovascular assessment [facility] Start: 07-14-2023 Oxygen therapy [facility] Start: 07-14-2023 Patient education [facility] Start: 07-14-2023 Procedure discontinued [facility] Start: 07-14-2023 Provision of activit y privileges [facility] Start: 07-14-2023 Recommendation to co jesus with treatment [facility] Start: 07-14-2023 Referral to service [facility] Start: 07-14-2023 Taking patient vital signs [facility] Start: 07-14-2023 [facility] Start: 07-14-2023 Anesthesia lumbar re gion nos ANESTH SPINE CORD SURGERY [facility] Start: 07-14-2023 Lamnotmy incl w/dcmp rsn nrv root 1 intrspc lumbr LOW BACK DISK SURGERY [facility] Start: 07-14-2023 Admission procedure [facility] Start: 05-01-2023 Patient referral [facility] Work Phone: Start: 04-17-2023 Patient referral [facility] Work Phone: Start: 04-10-2023 [facility] Start: 04-07-2023 Behavioral Health Screening Behavioral Health Screening [facility] Start: 12-06-2022 Covid-19 Vaccine ( season) Covid-19 Vaccine ( season) [facility] Start: 2020 RSV Vaccine (1 - 1-d ose 60+ series) RSV Vaccine (1 - 1-dose 60+ series) [facility] Start: 11-19-2019 Lipid panel Lipid Screening [facility] Start: 08-01-2018 Diabetes Screening Diabetes Screenin g [facility] Start: 03-18-2018 Shingrix Vaccine (2 of 2) White grix Vaccine (2 of 2) [facility] Start: 12-14-2015 Screening for malign ant neoplasm of breast Mammogram Screening [facility] Start: 2005 Screening for malign ant neoplasm of colon [facility] Start: 1979 Urine microalbumin profile DTa P,Tdap,Td Vaccine (1 - Tdap) [facility] Start: 1978 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 [facility] Disease Visit Annual PCP Team Chronic Disease Visit [facility] Start: 1978 BP Controlled (<130/80) BP Con trolled (<130/80) [facility] Start: 1978 Hepatitis C screening Hepatitis C Sc reening [facility] Start: 1978 HIV screening HIV Screening [facility] CBC W Auto Different ial panel - Blood [facility] Hepatitis A virus Ab [Presence] in Serum [facility] Partial thromboplast in time, activated [facility] Patient Education [facility] Work Phone: Patient referral [facility] Work Phone: Prothrombin time [facility] T4 free measurement [facility] T4 free measurement [facility] Thyroglobulin and Thyrogobulin Ab panel - Serum or Plasma [facility] Thyroglobulin and Thyrogobulin Ab panel - Serum or Plasma [facility] Thyroid stimulating hormone measurement [facility] Thyroid stimulating hormone measurement [facility] Immunizations Immunization Date Immunization Notes Care Provider Fa cility 07-27-2020 Covid (Moderna) Dr. Win Matos MD Work Phone: [facility] 06-29-2020 Covid (Moderna) Dr. Win Matos MD Work Phone: [facility] 02-03-2018 Influenza virus vaccine [facility] 02-03-2018 influenza virus vaccine, unspecified formulation Anil Ortez APRN.CORPORATE MANAGER Work Phone: [facility] 01-21-[address] Win Matos MD Work Phone: [facility] 01-10-2014 influenza, injectabl e, quadrivalent, preservative free Dr. Win Matos MD Work Phone: [facility] 01-10-2014 influenza, seasonal, injectable Anil Ortez APRN.CORPORATE MANAGER Work Phone: [facility] Work Phone: 03-27-2009 novel [id number], preservative-free, injectable Dr. 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 [employer] [id number] 2023-Present [phone] [address] [place] [address] Indemnity [id number] 2015 Unknown [id number] 1960 Unknown [id number] Unknown [id number] [id number]2 Unknown [id number] 2.16.840.1.954198.3.579.2.462 Unknown [id number] 2.16.840.1.743653.3.579.2.462 Unknown [id number] 2.16.840.1.256941.3.579.2.462 Unknown [id number] 2.16.840.1.195314.3.579.2.462 Unknown [id number] 2.16.840.1.624056.3.579.2.462 Unknown [id number] 2.16.840.1.995062.3.579.2.462 Unknown [id number] 2.16.840.1.965685.3.579.2.462 Unknown [id number] 2.16840.1.528817.3.579.2.462 Unknown [id number] 2.16.840.1.220190.3.579.2.462 Unknown [id number] 2.840.1.029378.3.579.2.462 Unknown [id number] 2.840.1.904363.3.579.2.462 Unknown [id number] 2.840.1.147504.3.579.2.462 Unknown [id number] 2.840.1.736484.3.579.2.462 Unknown [id number] 2.840.1.595728.3.579.2.462 Unknown [id number] 2.840.1.453675.3.579.2.462 Unknown [id number] 2.840.1.433602.3.579.2.462 Unknown [id number] 2.840.1.357343.3.579.2.462 Unknown [id number] 2.16840.1.507051.3.579.2.462 Unknown [id number] 2.840.1.517891.3.579.2.462 Unknown [id number] 2.16.840.1.403216.3.579.2.462 Unknown [id number] 2.16840.1.128166.3.579.2.462 Unknown [id number] 2.16.840.1.378383.3.579.2.462 Unknown [id number] 2.16840.1.061022.3.579.2.462 Unknown [id number] 2.840.1.584034.3.579.2.462 Unknown [id number] 2.840.1.555751.3.579.2.462 Unknown [id number] 2.840.1.241890.3.579.2.462 Unknown [id number] 2.0.1.146674.3.579.2.462 Social History Date Type Detail Facility Start: 02-01-2021 End: 03-15-2022 Tobacco smoking status COIS Unknown if ever smoked [facility] Start: 1960 Sex Assigned At Female [facility] Start: 04-21-2023 End: 10-18-2024 Tobacco smoking status COIS Never smoked tobacco [facility] Start: 04-21-2023 Tobacco use and exposure Smokeless tobacco non-user [facility] Start: 04-21-2023 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) [facility] Start: 04-21-2023 History of Social function [facility] Start: 04-21-2023 Tobacco use panel [facility] National Score (1-100), lower number is lower risk 51 [facility] Start: 1960 Sex Assigned At Not on file [facility] Start: 06-22-2024 End: 07-20-2024 Sex Female (finding) [facility] Medical Equipment Procedure Code Equipment Code [...] Assessment Result Facility 07-15-2023 Functional status Ambulates [facility] Work Phone: Mental Status Date Assessment Result Facility 07-15-2023 Cognitive function Level Of Cons ciousness Awake;Alert;Appropriate;Follow s Commands [facility] Work Phone: 07-15-2023 Cognitive function Appropriate;Cooperativ e [facility] Work Phone: 07-14-2023 Cognitive function Arousable To Voice/Nam e [facility] Work Phone: Clinical Notes 09-25-2022 to 10-08-2024 Note Date & Type Note Facility 10-08-2024 Radiology Diagnostic study note [facility] Imaging Services [address] [place], [place] [id number] Abdomen/Pelvis without Cont MR#: [id number] Acct: [id number] Name: GINETTE MACKENZIE Rep #: [id number] : [id number] F 64 From: Therese Landaverde MD PCP: Dr. Win Matos MD Status: REG E R Study:Abdomen/Pelvis without Cont Date of Exa m: 10/08/24 Exam# [id number] Ordering Dr: Tony Quintana DO PROCEDURE: ABDOMEN/PELVIS WITHOUT CONT 10/08/2024 REASON FOR EXAM: PAIN TECHNIQUE: ABDOMEN/PELVIS WITHOUT CONT Noncontrast technique limits evaluation of the abdominal and pelvic viscera. Coronal and Sagittal reconstruction series were provided. One or more dose reduction techniques were used (e.g., Automated exposure control, adjustment of the mA and/or kV according to patient size, use of iterative reconstruction technique). RADIATION DOSE SUMMARY: CTDlvol: 22.65 mGy DLP: 1273.10 mGycm COMPARISON: 01/29/2022 FINDINGS: Lung bases: Mild dependent atelectasis Liver: Normal size. No obvious mass. Gallbladder: Unremarkable Spleen: Normal size. Pancreas: Normal size. No surrounding inflammation. Adrenals: Unremarkable Kidneys: No obstructive uropathy, or suspicious solid renal lesion, there is a nonobstructing 2 mm stone in the right kidney. Bladder: Unremarkable Reproductive Organs: Likely surgically absent Bowel: No evidence of ileus or obstruction. No CT evidence of an acute inflammatory process. Retained stool noted in the colon. Hyperdensity in the cecum likely represents ingested medication. Appendix: Normal appendix seen on coronal recon images 70 through 77. No free intraperitoneal fluid, air, or suspicious adenopathy, IVC and aorta are unremarkable Bones: Bony structures show degenerative change CT/Abdomen/Pelvis without Cont IMPRESSION: No suspicious solid organ abnormality, nonobstructing right nephrolithiasis No free intraperitoneal fluid, air, or suspicious adenopathy, normal appendix visualized Degenerative bony changes Reading Location: [id number] CC: Dr. Tony Quintana DO; Dr. Win Matos MD ~ Management Manager: Signed [facility] 10-06-2024 Radiology Diagnostic study note [facility] Imaging Services [address] [place] [address] Sinus/Facial Bone MR#: [id number] Acct: [id number] Name: GINETTE MACKENZIE Rep #: [id number] : 1960 F 64 From: Lee Toledo MD PCP: Dr. Win Matos MD Status: REG C LI Study:Sinus/Facial Bone Date of Exam: Exam# [id number] Ordering Dr: Javi Lenz MD PROCEDURE: SINUS/FACIAL [...] mGy DLP: 731.11 mGycm COMPARISON: None. FINDINGS: Zsuk-cr-yctpnvup degenerative changes of the visualized portions of [...] 2. Additional findings as noted. Reading Location: [place] [address] CC: Dr. Javi Lenz MD; Dr. Win Matos MD ~ Management Manager: Signed [facility] 10-06-2024 Radiology Diagnostic study note [facility] Imaging Services [address] [place] [address] L/S Spine Min 4 Views MR#: [id number] Acct: [id number] Name: GINETTE MACKENZIE Rep #: [id number] : 1960 F 64 From: Zandra Kendall MD PCP: Dr. Win Matos MD Status: REG C LI Study:L/S Spine Min 4 Views Date of Exam: 10/05/24 Exam# [id number] Ordering Dr: Javi Lenz MD PROCEDURE: L/S [...] Views IMPRESSION: Lumbar spine degeneration Reading Location: [facility] CC: Dr. Javi Lenz MD; Dr. Win Matos MD ~ Management Manager: Signed [facility] 09-30-2024 Evaluation note Diagnosis Onset Date Resolution Easy bruising chronic September 30, 2024 8:36am [facility] Work Phone: 1([phone]) 514-839906-26-2025 Evaluation note* Diagnosis Onset Date Resolution Status Admit Date Easy bruising chronic September 30, 2024 8:36am Left knee DJD acute October 04, 2024 8:04am Right knee DJD acute October 04, 2024 8:04am Obesity chronic October 04 8:04am [facility] Work Phone: 1(990) 493-967106-26-2025 Evaluation note* Diagnosis Onset Date Resolution Status Admit Date Easy bruising chronic September 30, 2024 8:36am Left knee DJD acute October 04, 2024 8:04am Right knee DJD acute October 04, 2024 8:04am Obesity chronic October 04 8:04am Easy bruising chronic October 06 025 9:54am [facility] Work Phone: 1(902) [phone] Evaluation note* Diagnosis Onset Date Resolution Status Admit Date Easy bruising chronic September 30, 2024 8:36am Left knee DJD acute October 04, 2024 8:04am Right knee DJD acute October 04, 2024 8:04am Obesity chronic October 04 8:04am Easy bruising chronic October 06 025 9:54am Left knee DJD acute October 11 025 8:04am Right knee DJD acute October 11, 2024 8:04am [employer] [facility] Work Phone: [phone] Evaluation note* Diagnosis Onset Date Resolution Status Admit Date Easy bruising chronic September 30, 2024 8:36am Left knee DJD acute October 04, 2024 8:04am Right knee DJD acute October 04, 2024 8:04am Obesity chronic October 04 8:04am Easy bruising chronic October 06 9:54am Left knee DJD acute October 11 8:04am Right knee DJD acute October 11, 2024 8:04am Left knee DJD acute October 18, 2024 8:08am Right knee DJD acute October 18, 2024 8:08am Essential hypertension chronic Ju ly 2024 10:26am Postoperative primary hypothyroidism chronic October 18, 2024 10:26am Premature ventricular contractions chronic October 18, 2024 10:26am Arthritis of both knees noneactive J haresh 2024 10:26am Establishing care with new doctor, encounter for noneactive October 18, 2024 10:26am [employer] [facility] Work Phone: 1([phone]) [phone] Evaluation note* Diagnosis Onset Date Resolution Status Admit Date Easy bruising chronic September 30, 2024 8:36am Left knee DJD acute October 04, 2024 8:04am Right knee DJD acute October 04, 2024 8:04am Obesity chronic October 04 8:04am Easy bruising chronic October 06 9:54am Left knee DJD acute October 11 8:04am Right knee DJD acute October 11, 2024 8:04am Left knee DJD acute October 18, 2024 8:08am Right knee DJD acute October 18, 2024 8:08am Essential hypertension chronic Ju ly 2024 10:26am Postoperative primary hypothyroidism chronic October 18, 2024 10:26am Premature ventricular contractions chronic October 18, 2024 10:26am Rheumatoid arthritis noneactive October 18, 2024 10:26am Arthritis of both knees noneactive J haresh 2024 10:26am Establishing care with new doctor, encounter for noneactive October 18, 2024 10:26am Moderate anxiety noneactive October 10:26am Polyneuropathy noneactive October 18, 2024 10:26am Right flank pain noneactive October 10:26am [facility] Work Phone: 1([phone]) [phone] Evaluation note* Diagnosis Onset Date Resolution Status Admit Date Easy bruising chronic September 30, 2024 8:36am Left knee DJD acute October 04, 2024 8:04am Right knee DJD acute October 04, 2024 8:04am Obesity chronic October 04 8:04am Easy bruising chronic October 06 9:54am Left knee DJD acute October 11 8:04am Right knee DJD acute October 11, 2024 8:04am Left knee DJD acute October 18, 2024 8:08am Right knee DJD acute October 18, 2024 8:08am Essential hypertension chronic Ju 2024 10:26am Postoperative primary hypothyroidism chronic October 18, 2024 10:26am Premature ventricular contractions chronic October 18, 2024 10:26am Rheumatoid arthritis noneactive October 18, 2024 10:26am Arthritis of both knees noneactive J haresh2024 10:26am Establishing care with new doctor, encounter for noneactive October 18, 2024 10:26am Moderate anxiety noneactive October 10:26am Polyneuropathy noneactive October 18, 2024 10:26am Right flank pain noneactive October 10:26am Essential hypertension chronic Se pt2024 11:08am Postoperative primary hypothyroidism chronic December 13 11:08am Premature ventricular contractions chronic December 13 11:08am Rheumatoid arthritis noneactive Dec 11:08am Arthritis of both knees noneactive S eptember 2024 11:08am Moderate anxiety noneactive Decembe r 2024 11:08am Polyneuropathy noneactive December 13, 2024 11:08am [facility] Work Phone: 1(391) 569-167206-26-2025 Evaluation note* Diagnosis Onset Date Resolution Status Admit Date Easy bruising chronic September 30, 2024 8:36am Left knee DJD acute October 04, 2024 8:04am Right knee DJD acute October 04, 2024 8:04am Obesity chronic October 04 8:04am Easy bruising chronic October 06 9:54am Left knee DJD acute October 11 8:04am Right knee DJD acute October 11, 2024 8:04am Left knee DJD acute October 18, 2024 8:08am Right knee DJD acute October 18, 2024 8:08am Essential hypertension chronic Ju 2024 10:26am Postoperative primary hypothyroidism chronic October 18, 2024 10:26am Premature ventricular contractions chronic October 18, 2024 10:26am Rheumatoid arthritis noneactive October 18, 2024 10:26am Arthritis of both knees noneactive J haresh2024 10:26am Establishing care with new doctor, encounter for noneactive October 18, 2024 10:26am Moderate anxiety noneactive October 10:26am Polyneuropathy noneactive October 18, 2024 10:26am Right flank pain noneactive October 10:26am Essential hypertension chronic Se pt2024 11:08am Postoperative primary hypothyroidism chronic December 13 11:08am Premature ventricular contractions chronic December 13 11:08am Rheumatoid arthritis noneactive Dec 11:08am Arthritis of both knees noneactive S eptember 2024 11:08am Moderate anxiety noneactive e r 2024 11:08am Polyneuropathy noneactive December 13, 2024 11:08am Morbid obesity with BMI of 40.0-44.9, adult noneactive December 13, 2024 11:08am S/P tympanic tube insertion noneacti ve December 13, 2024 11:08am [facility] Work Phone: 1(803) 363-564806-26-2025 Evaluation note* Diagnosis Onset Date Resolution Status Admit Date Easy bruising chronic September 30, 2024 8:36am Left knee DJD acute October 04, 2024 8:04am Right knee DJD acute October 04, 2024 8:04am Obesity chronic October 04 8:04am Easy bruising chronic Margie 2nd, 2 025 9:54am Left knee DJD acute October 11 8:04am Right knee DJD acute October 11, 2024 8:04am Left knee DJD acute October 18, 2024 8:08am Right knee DJD acute October 18, 2024 8:08am Essential hypertension chronic Ju ly 2024 10:26am Postoperative primary hypothyroidism chronic October 18, 2024 10:26am Premature ventricular contractions chronic October 18, 2024 10:26am Rheumatoid arthritis noneactive October 18, 2024 10:26am Arthritis of both knees noneactive J haresh 2024 10:26am Establishing care with new doctor, encounter for noneactive October 18, 2024 10:26am Moderate anxiety noneactive October 10:26am Polyneuropathy noneactive October 18, 2024 10:26am Right flank pain noneactive October 10:26am Essential hypertension chronic Se pt2024 11:08am Postoperative primary hypothyroidism chronic December 13 11:08am Premature ventricular contractions chronic December 13 11:08am Rheumatoid arthritis noneactive Dec 11:08am Arthritis of both knees noneactive S eptember 2024 11:08am Moderate anxiety noneactive Decembe r 2024 11:08am Polyneuropathy noneactive December 13, 2024 11:08am Morbid obesity with BMI of 40.0-44.9, adult noneactive December 13, 2024 11:08am S/P tympanic tube insertion noneacti ve December 13, 2024 11:08am Left knee DJD acute January 9:00am Right knee DJD acute January 9:00am [facility] Work Phone: 1(180) [phone] Evaluation note* Diagnosis Onset Date Resolution Status Admit Date Left knee DJD acute May 282024 10:26am Right knee DJD acute May 092024 10:26am Obesity chronic May 28, 2024 10:26am [facility] Work Phone: 1(103) 724-657312-13-2024 Evaluation note* Diagnosis Onset Date Resolution Status Admit Date Postoperative primary hypothyroidism chronic March 19, 2 024 10:14am Thyroid cancer chronic March 072023 10:14am Left knee DJD acute May 282024 10:26am Right knee DJD acute May 092024 10:26am Obesity chronic May 28, 2024 10:26am [facility] Work Phone: 1([phone]) 422-647604-23-2024 Telephone encounter Note* Telephone Encounter - Tsering Hardin LPN - 07/29/2023 12:59 PM EDT See pt refill request below and further advise. Tsering Hardin LPN [facility]04-23-2024 Miscellaneous Notes* Telephone Encounter - Tsering Hardin [...] Thank you. Paula Pride. [facility] Tele[facility] encounter Note * Telephone Encounter - Paula Pride - [...] 04/22/2024 Please advise. Thank you. Paula Pride. [facility]04-15-2024 Discharge summary Author Star Polanco [facility] July 21, 2023 11:30am Note Date/Time July 21, 2023 11: 23am [facility] Physical Therapy [facility] [address] [place] [address] / REHABILITATION SERVICES DISCHARGE SUMMARY MR#: [id number] Acct: [id number] Name: GINETTE MACKENZIE Rep #: [id number] : 1960 63 From: Cert. YO HandT, OCS Referring Dr.: Dr. Ritesh Aguilar MD Status: REG R Insurance: [employer] SELF PAY INSURANCE [...] appropriate by the physician. Thank you! Star Polanco PT, Cert MDT, OCS Balance/Gait/Functional tests Balance/Special Test Scores Oswestry Low Back Score: 19 <Electronically signed by Star Polanco PT, Cert. T, OCS> 07/21/23 1130 CC: Dr. Ritesh Aguilar MD; Dr. Win Matos MD ~ JLA Signed [facility] Work Phone: 1(370) 420-430504-13-2024 Discharge summary Author Keli Arauz [facility] July 19, 2023 9:03pm Note Date/Time July 19, 2023 7:1 0pm [facility] Medical Records Department [address] [place] [address] Emergency Department Summary 07/19/23 MR#: [id number] Acct: [id number] Name: GINETTE MACKENZIE Rep #:[id number] : 1960 63 From: Keli Arauz MD [...] Zofran prescription was for 1 tab daily. [facility] Medical History Arthritis Back pain [facility] Cardiology [...] PO DAILY 06/13/23 [History Last Taken 07/13/23] uquvzyak-gsq-cdnx 18 mg-mfolate 800 mcg DFE-vit K 150 mcg-herb tablet (Alive Women's Ultra Potency) 1 tab PO DAILY 06/24/23 [History Last Taken 07/06/23] melatonin 5 mg capsule 5 mg PO QHS PRN sleep 07/14/23 [History Last Taken Unknown] omega 1-ghh-rdy-fish oil 300 mg-1,000 mg capsule (Fish Oil) 1 cap PO DAILY 07/14/23 [History Last Taken Unknown] oxycodone-acetaminophen 5 mg-325 mg tablet 1 tab PO Q6H PRN pain 7 days #30 tabs04/09/24 [Rx Last Taken Unknown] ondansetron HCl 4 [...] History of thyroid surgery Status post laminectomy Bryan teeth extracted Social History adopted: Yes (does [...] mcg tablet 1 tab PO DAILY omega 5-lhi-meq-fish oil [Fish Oil] 300-1,000 mg capsule 1 [...] your Primary Care Provider. Call [facility] ([phone]) or report to the closest Emergency Room. Call 911 if necessary. 07/19/232102 <Electronically signed by Keli Arauz MD> Cosigner Signature (if applicable): CC: Dr. Win Matos MD ~ Signed [facility] Work Phone: 1(383) 100-899504-09-2024 Discharge summary Author Stiven Gunn [facility] July 15, 2023 1:32pm Note Date/Time July 15, 2023 1:22 pm [facility] Medical Records Department [address] [place] [address] Instructions for Home/Discharge Instructions 07/15/23 1320 MR#: [id number] Acct: [id number] Name: GINETTE MACKENZIE Rep #:[id number] : 1960 63 From: Stiven Rainey PCP: [...] Nazario; Shereen Camp; Jamil Perkins; Malina Pelletier; Loius Gilbert; Flo Perez; Lebron Malcolm; Amaya Dawn; Viet Heredia;Sonya Lombardo NP; Neo Villeda PA; Stiven Gunn Discharge Orders/Prescriptions [...] mcg tablet 1 tab PO DAILY omega 1-uiw-ywy-fish oil [Fish Oil] 300-1,000 mg capsule 1 cap PO DAILY melatonin 5 mg capsule 5 mg PO QHS PRN (Reason: sleep) Patient Comments: patient unsure of dose for this metoprolol tartrate 25 mg tablet 25 mg PO BID Qty: 180 3RF Other Ambulatory Orders: Hepatitis A AB, Total (Routine) Timeframe: 20230626 Facility: [facility] - Location: Laboratory Ordered By: Dr. Stiven Gunn Referrals / Follow Up: Win Matos Chi, MD [Primary Care Provider] - Disposition Disposition (needs filled in before D/C Order can be placed): Home, Self Care 07/15/23 1332<Electronically signed by Stiven Gunn DO>Stiven Gunn DO CC: JACKHAMMER SPLITTER OPERATOR-C Sonya Lombardo; Del Vallejo MD; Dr. Scarlet Skinner MD; Dr. Monty Hernández DO; Dr. Barbara Vernon MD; Dr. Leidy Salazar MD; Dr. Leidy Glover MD; Dr. America Thrasher MD; Dr. [...] Nazario; SHWETA Gongora; Viet Heredia MD ~ [facility] Work Phone: 1([phone]) 676-117204-08-2024 Progress note Author Louis Gilbert [facility] July 14, 2023 6:09pm Note Date/Time July 14, 2023 5:08 pm [facility] Medical Records Department [address] [place] [address] Progress Note - Hospitalist 07/14/23 1705 MR#: [id number] Acct: [id number] Name: GINETTE MACKENZIE Rep #:[id number] : 1960 63 From: Louis guzman MD PCP: Dr. Win Matos MD Status:ADM I NO Location: MS3 BG194-2 Subjective Subjective 63-year-old female presents to the [...] Charges/Coding Visit Charges Office Visits / Consults: 81972 OV L3 New 30min 07/14/23 1809 <Electronically signed by Louis Gilbert MD> Cosigner Signature (if applicable): CC: ~ Signed [facility] Work Phone: 1(861) 634-870304-08-2024 Procedure [facility] 07-10-2023 History and physical note Author Stiven Gunn [facility] July 10, 2023 10:51am Note Date/Time July 10, 2023 10:5 1am [facility] Medical Records Department [address] [place] [address] History & Physical Exam 07/10/23 1051 MR#: [id number] Acct: [id number] Name: GINETTE MACKENZIE Rep #:[id number] : 1960 63 From: Stiven Rainey PCP: Dr. Win Matos MD Status:PRE S DC Location: [facility] History and Physical MR#: [id number] Acct: [id number] Name: GINETTE MACKENZIE Rep #: [id number] : 1960 Provider: Dr. Stiven Gunn DO Age/Sex: 63/F Location: [facility] Status: Signed Intake Vital Signs 04/17/2407:01 :12 [...] DAILY #15 TABLETS 04/10/23 [Rx Confirmed 06/05/23] [facility] Medical History (Updated 06/05/23 @ 16:[address] Stiven Gunn DO) [place] COVID-19 virus detected (01/2020) Daytime somnolence Endometrial hyperplasia without atypia, simple Essential hypertension Hypothyroidism Obesity Peripheral neuropathy Postmenopausal bleeding Postoperative primary hypothyroidism Premature ventricular contractions Thyroid cancer Surgical History H/O: hysterectomy History of cervical polypectomy History of laparoscopic-assisted vaginal hysterectomy (06/04/18) History of removal of neck cyst History of thyroid surgery Bryan teeth extracted Family History Unknown No problems [...] Gunn DO; Dr. Win Matos MD~ Signed [facility] Work Phone: 1(558) 875-841401-15-2024 NoteHNO ID: [id number] Author: ANIL ORTEZ APRN.CORPORATE MANAGER Service: ? Author Type: Nurse Practitioner Type: Progress Notes Filed: 04/21/2023 16:57 Note Text: Ginette is a 63 year old who presents for an annual gynecologic exam without complaints. Postmenopausal: Yes, hysterectomy 2019 - menorrhagia and cancerous cells of cervix per patient HRT use: No. Last Pap: normal 2022 HPV: negative 2022 History of abnormal pap: Yes Last mammogram: 2022 [facility] History of abnormal mammogram: Yes Sexually active: Yes History of STDS: None Hot flashes: No Night sweats: No Vaginal dryness: Yes OB History T0 L0 SAB0 IAB0 Ectopic0 Multiple0 Live Births0 Meter Installer And Remover History LMP: 07/03/2015, Hysterectomy Age at Menarche: Age at First : Age at Menopause: Meter Installer And Remover History Comments: Sexual Activity: Yes; Male; hyst Contraception: Surgical PAST MEDICAL HISTORY Diagnosis Date Arthritis GERD (gastroesophageal reflux disease) Hypertension Hypothyroidism secondary to thyroidectomy, 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 Esparza Neuropathy chronic, lower legs/feet, [...] external genitalia normal, normal Bartholin's glands, urethra, [place]'s glands, no vulvar lesions, good vaginal support, [...] guidelines of annual HPV based tests before detention surveillance for AMARJIT 2 or AMARJIT 3. Unknown details of past pap smears so pap of vaginal cuff was done. Mammogram ordered at [facility], hx of lipoma that is followed by [facility] Self breast awareness encouraged. Nutrition, exercise and [...] for clobetasol use given, not intended for terminal computer operator use Anil Ortez APRN.[facility]01-04-2024 Discharge summary Author George Myers [facility] April 10, 2023 2:13pm Note Date/Time April 10, 2023 2: 06pm [facility] Medical Records Department [address] [place] [address] Emergency Department Summary 04/10/23 MR#: [id number] Acct: [id number] Name: GINETTE MACKENZIE Rep #:[id number] : 1960 62 From: George Myers MD [...] eating and drinking normally. She has tried gpjb-lvj-jwskhwd meds and chiropractor without any notable change. She has no history of trauma or falls. [facility] Medical History [place] COVID-19 virus detected (01/2020) [...] of neck cyst History of thyroid surgery Bryan teeth extracted Social History adopted: Yes (does [...] decision making narrative: Patient has been trying qbdp-gqp-ggkksjn nonsteroidals rest ice and chiropractor. I will [...] your Primary Care Provider. Call [facility] ([phone]) or report to the closest Emergency Room. Call 911 if necessary. 04/10/23 1413 <Electronically signed by George Myers MD> Cosigner Signature (if applicable): CC: Dr. Win Matos MD ~ Signed [facility] Work Phone: 1(529) 945-777306-21-2023 NotePap Smear Specimen AdequacyJune 2022 4:03pmComment.Satisfactory for evaluation. No endocervical cells are present. This isconsistent with a history ofhysterectomy.[facility] A#[id number] Township District Memorial HospitalComment on above:Satisfactory for evaluation. No endocervical cells are present. This isconsistent with a history ofhysterectomy.09-25-2022 NotePap Smear Specimen AdequacyJune 2022 4:03pm Comment.Satisfactory for evaluation. No endocervical cells are present. This isconsistent with a history ofhysterectomy.[facility] INTER[facility]ACED A#[id number] Township District Memorial HospitalComment on above:Satisfactory for evaluation. No endocervical cells are present. This isconsistent with a history ofhysterectomy.Discharge summary Author Stiven Gunn [facility] July 15, 2023 1:43pm Note Date/Time July 15, 2023 1:43 pm [facility] Medical Records Department [address] [place] [address] Discharge Summary 07/15/23 1341 MR#: [id number] Acct: [id number] Name: GINETTE MACKENZIE Rep #:[id number] : 1960 63 From: Stiven Rainey PCP: Dr. Win Matos MD Status:ADM I NO Location: MS3 [id number] Providers Date of Admission: 07/14/23 Primary Care [...] 15:48 Consult: Hospitalist Routine Consulting Provider: [facility] Reason for Consult: Medical Management EMERGENT [...] capsule,extended release 10 meq PO DAILY 06/13/23 wdwncwgr-bqz-hdit 18 mg-mfolate 800 mcg DFE-vit K 150 mcg-herb tablet (Alive Women's Ultra Potency) 1 tab PO DAILY 06/24/23 melatonin 5 mg capsule 5 mg PO QHS PRN sleep 07/14/23 omega 0-gns-mpu-fish oil 300 mg-1,000 mg capsule (Fish Oil) [...] 74.3 H, Lymph % (Auto) 14.5 L, [place] % (Auto) 9.8, Eos % (Auto) 0.9, [...] Lebron Malcolm; Amaya Dawn; Viet Heredia;Sonya Lombardo JACKHAMMER SPLITTER OPERATOR; Neo Villeda PA; Stiven Gunn Discharge Orders/Prescriptions [...] mcg tablet 1 tab PO DAILY omega 3-ypj-bmd-fish oil [Fish Oil] 300-1,000 mg capsule 1 cap PO DAILY melatonin 5 mg capsule 5 mg PO QHS PRN (Reason: sleep) Patient Comments: patient unsure of dose for this metoprolol tartrate 25 mg tablet 25 mg PO BID Qty: 180 3RF Other Ambulatory Orders: Hepatitis A AB, Total (Routine) Timeframe: 20230626 Facility: [facility] - Location: Laboratory Ordered By: Dr. Stiven Gunn Referrals / Follow Up: Win Matos Chi, MD [Primary Care Provider] - Disposition Disposition (needs filled in before D/C Order can be placed): Home, Self Care 07/15/23 1343 <Electronically signed by Stiven Gunn DO> Cosigner Signature (if applicable): CC: Dr. Stiven Gunn DO; Dr. Win Matos MD~ Signed [facility] Work Phone: evaluation noteNo assessment information available [facility] Work Phone: Evaluation note* Diagnosis Onset Date Resolution Status Postoperative primary hypothyroidism chronic Thyroid cancer chronic [facility] Work Phone: Evaluation note* Diagnosis Onset Date Resolution Status Postoperative primary hypothyroidism chronic Thyroid cancer chronic Lumbar radiculopathy acute [facility] Work Phone: Evaluation note* Diagnosis Onset Date Resolution Status Postoperative primary hypothyroidism chronic Thyroid cancer chronic Lumbar radiculopathy acute Spondylolisthesis, lumbar region acute Synovial cyst of lumbar facet joint acute [facility] Work Phone: Evaluation note* Diagnosis Onset [...] joint acute Status post laminectomy acut e [facility] Work Phone: Evaluation note* Diagnosis Onset [...] joint acute Status post laminectomy reso lved [facility] Work Phone: Evaluation note* Diagnosis Onset [...] laminectom y for spinal cord decompression acute [facility] Work Phone: Reason for referral (narrative)No reason for referral information [facility] Work Phone: Summary Purpose Family History No Family History Records Found Relationship Condition Age at Onset Recorded Date/T lyssa Not Specified Adopted Unknown Advance Directives No Advanced Directives Records Found Advance Directive Response Recorded Date/ Time Living Will No June 04 019 1:27pm Power of Mission Analyst No June 04, 2018 1:27pm Advance Directive Response Recorded Date/ Time Living Will No January 29 8:51am Power of Mission Analyst No January 29, 2022 8:51am Advance Directive Response Recorded Date/ Time Living Will No April 10 1:47pm Power of Mission Analyst No April 10 024 1:47pm Advance Directive Response Recorded Date/ Time Living Will No July 14, 2023 3:51pm Power of Mission Analyst No July 13 3:51pm Advance Directive Response Recorded Date/ Time Living Will No July 19, 2023 7:18pm Power of Mission Analyst No July 18 7:18pm Advance Directive Response Recorded Date/ Time Living Will No January 29 7:51am Power of Mission Analyst No January 29, 2022 7:51am Advance Directive Response Recorded Date/ Time Living Will No January 29 8:51am Do you have a Healthcare Power of Mission Analyst? No January 29, 2022 8:51am Advance Directive Response Recorded Date/ Time Do you have a Healthcare Power of Mission Analyst? No October 08, 2024 8:34am Chief Complaint and Reason for Visit Chief [...] for Visit Admit Date Postoperative primary hypothyroidism Dec emb2023 10:14am Thyroid cancer March 19, 2024 10:14am [...] Easy bruising October 06, 2024 9:54a m Chief Complaint Admit Date PAIN- COPY PCP June 11, 2024 8:25 am EORDER July 06, 2024 10:5 4am EASILY BRUISING September 30, 2024 8:36 am BL KNEES October 04, 2024 8:04 am Cyst and mucocele of nose and nasal sinu s October 05, 2024 2:15pm 1 WEEK, REVIEW LABS October 06, 2024 9:54a m abd October 08, 2024 8:26a m Chief Complaint Admit Date EORDER July 06, 2024 10:5 4am EASILY BRUISING September 30, 2024 8:36 am BL KNEES October 04, 2024 8:04 am Cyst and mucocele of nose and nasal sinu s October 05, 2024 2:15pm 1 WEEK, REVIEW LABS October 06, 2024 9:54a m abd October 08, 2024 8:26a m BL KNEES October 11, 2024 8:04a m Reason for Visit Admit Date Easy bruising September 30, 2024 8:36 am Left knee DJD October 04, 2024 8:04 am Right knee DJD October 04, 2024 8:04 am Obesity October 04, 2024 8:04 am Easy bruising October 06, 2024 9:54a m Left knee DJD October 11, 2024 8:04a m Right knee DJD October 11, 2024 8:04a m Chief Complaint Admit Date EORDER July 06, 2024 10:5 4am EASILY BRUISING September 30, 2024 8:36 am BL KNEES October 04, 2024 8:04 am Cyst and mucocele of nose and nasal sinu s October 05, 2024 2:15pm 1 WEEK, REVIEW LABS October 06, 2024 9:54a m abd October 08, 2024 8:26a m BL KNEES October 11, 2024 8:04a m BL KNEES October 18, 2024 8:08 am Chief Complaint Admit Date EORDER July 06, 2024 10:5 4am EASILY BRUISING September 30, 2024 8:36 am BL KNEES October 04, 2024 8:04 am Cyst and mucocele of nose and nasal sinu s October 05, 2024 2:15pm 1 WEEK, REVIEW LABS October 06, 2024 9:54a m abd October 08, 2024 8:26a m BL KNEES October 11, 2024 8:04a m BL KNEES October 18, 2024 8:08 am JACKHAMMER SPLITTER OPERATOR. 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 ONLY October 18, 2024 10:26am Reason for Visit Admit Date Easy bruising September 30, 2024 8:36 am Left knee DJD October 04, 2024 8:04 am Right knee DJD October 04, 2024 8:04 am Obesity October 04, 2024 8:04 am Easy bruising October 06, 2024 9:54a m Left knee DJD October 11, 2024 8:04a m Right knee DJD October 11, 2024 8:04a m Left knee DJD October 18, 2024 8:08 am Right knee DJD October 18, 2024 8:08 am Essential hypertension October 18, 2024 1 0:26am Postoperative primary hypothyroidism Oct 10:26am Premature ventricular contractions October 18, 2024 10:26am Arthritis of both knees October 18, 2024 10:26am Establishing care with new doctoradrienne for October 18, 2024 10:26am Chief Complaint Admit Date EASILY BRUISING September 30, 2024 8:36 am BL KNEES October 04, 2024 8:04 am Cyst and mucocele of nose and nasal sinu s October 05, 2024 2:15pm 1 WEEK, REVIEW LABS October 06, 2024 9:54a m abd October 08, 2024 8:26a m BL KNEES October 11, 2024 8:04a m BL KNEES October 18, 2024 8:08 am JACKHAMMER SPLITTER OPERATOR. 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 ONLY October 18, 2024 10:26am EORDER November 19, 2024 8: 55am PRE OP November 22, 2024 11 :24am Reason for Visit Admit Date Easy bruising September 30, 2024 8:36 am Left knee DJD October 04, 2024 8:04 am Right knee DJD October 04, 2024 8:04 am Obesity October 04, 2024 8:04 am Easy bruising October 06, 2024 9:54a m Left knee DJD October 11, 2024 8:04a m Right knee DJD October 11, 2024 8:04a m Left knee DJD October 18, 2024 8:08 am Right knee DJD October 18, 2024 8:08 am Essential hypertension October 18, 2024 1 0:26am Postoperative primary hypothyroidism Yonny 2024 10:26am Premature ventricular contractions October 18, 2024 10:26am Rheumatoid arthritis October 18, 2024 10: 26am Arthritis of both knees October 18, 2024 10:26am Establishing care with new doctor, adrienne moy for October 18, 2024 10:26am Moderate anxiety October 18, 2024 10:2 6am Polyneuropathy October 18, 2024 10:2 6am Right flank pain October 18, 2024 10:2 6am Chief Complaint Admit Date EASILY BRUISING September 30, 2024 8:36 am BL KNEES October 04, 2024 8:04 am Cyst and mucocele of nose and nasal sinu s October 05, 2024 2:15pm 1 WEEK, REVIEW LABS October 06, 2024 9:54a m abd October 08, 2024 8:26a m BL KNEES October 11, 2024 8:04a m BL KNEES October 18, 2024 8:08 am JACKHAMMER SPLITTER OPERATOR. 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 ONLY October 18, 2024 10:26am EORDER November 19, 2024 8: 55am PRE OP November 22, 2024 11 :24am PRE OP November 22, 2024 11 :55am Chief Complaint Admit Date EASILY BRUISING September 30, 2024 8:36 am BL KNEES October 04, 2024 8:04 am Cyst and mucocele of nose and nasal sinu s October 05, 2024 2:15pm 1 WEEK, REVIEW LABS October 06, 2024 9:54a m abd October 08, 2024 8:26a m BL KNEES October 11, 2024 8:04a m BL KNEES October 18, 2024 8:08 am JACKHAMMER SPLITTER OPERATOR. 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 ONLY October 18, 2024 10:26am EORDER November 19, 2024 8: 55am PRE OP November 22, 2024 11 :24am PRE OP November 22, 2024 11 :55am bilateral myringotomy with tubes November 30, 2024 3:33pm Chief Complaint Admit Date EASILY BRUISING September 30, 2024 8:36 am BL KNEES October 04, 2024 8:04 am Cyst and mucocele of nose and nasal sinu s October 05, 2024 2:15pm 1 WEEK, REVIEW LABS October 06, 2024 9:54a m abd October 08, 2024 8:26a m BL KNEES October 11, 2024 8:04a m BL KNEES October 18, 2024 8:08 am JACKHAMMER SPLITTER OPERATOR. 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 ONLY October 18, 2024 10:26am EORDER November 19, 2024 8: 55am PRE OP November 22, 2024 11 :24am PRE OP November 22, 2024 11 :55am bilateral myringotomy with tubes November 30, 2024 3:33pm PAIN- COPY PCP December 10, 2024 9:34am 8 WK December 13, 2024 11:08am Reason for Visit Admit Date Easy bruising September 30, 2024 8:36 am Left knee DJD October 04, 2024 8:04 am Right knee DJD October 04, 2024 8:04 am Obesity October 04, 2024 8:04 am Easy bruising October 06, 2024 9:54a m Left knee DJD October 11, 2024 8:04a m Right knee DJD October 11, 2024 8:04a m Left knee DJD October 18, 2024 8:08 am Right knee DJD October 18, 2024 8:08 am Essential hypertension October 18, 2024 1 0:26am Postoperative primary hypothyroidism Yonny 2024 10:26am Premature ventricular contractions October 18, 2024 10:26am Rheumatoid arthritis October 18, 2024 10: 26am Arthritis of both knees October 18, 2024 10:26am Establishing care with new doctoradrienne for October 18, 2024 10:26am Moderate anxiety October 18, 2024 10:2 6am Polyneuropathy October 18, 2024 10:2 6am Right flank pain October 18, 2024 10:2 6am Essential hypertension December 13 11:08am Postoperative primary hypothyroidism Dec 11:08am [facility]ature [facility] 11:08am Rheumatoid arthritis December 13, 2024 11:08am Arthritis of both knees December 13 11:08am Moderate anxiety December 13, 2024 11:08am Polyneuropathy December 13, 2024 11:08am Reason for Visit Admit Date Easy bruising September 30, 2024 8:36 am Left knee DJD October 04, 2024 8:04 am Right knee DJD October 04, 2024 8:04 am Obesity October 04, 2024 8:04 am Easy bruising October 06, 2024 9:54a m Left knee DJD October 11, 2024 8:04a m Right knee DJD October 11, 2024 8:04a m Left knee DJD October 18, 2024 8:08 am Right knee DJD October 18, 2024 8:08 am Essential hypertension October 18, 2024 1 0:26am Postoperative primary hypothyroidism Yonny 2024 10:26am Premature ventricular contractions October 18, 2024 10:26am Rheumatoid arthritis October 18, 2024 10: 26am Arthritis of both knees October 18, 2024 10:26am Establishing care with new doctor, adrienne moy for October 18, 2024 10:26am Moderate anxiety October 18, 2024 10:2 6am Polyneuropathy October 18, 2024 10:2 6am Right flank pain October 18, 2024 10:2 6am Essential hypertension December 13 11:08am Postoperative primary hypothyroidism [facility] 2024 11:08am Premature ventricular contractions [facility] 2024 11:08am Rheumatoid arthritis December 13, 2024 11:08am Arthritis of both knees December 13 11:08am Moderate anxiety December 13, 2024 11:08am Polyneuropathy December 13, 2024 11:08am Morbid obesity with BMI of 40.0-44.9, ad ult December 13, 2024 11:08am S/P tympanic tube insertion December 11:08am Chief Complaint Admit Date EASILY BRUISING Chrissie 26th, 2025 8:36 am BL KNEES October 04, 2024 8:04 am Cyst and mucocele of nose and nasal sinu s October 05, 2024 2:15pm 1 WEEK, REVIEW LABS October 06, 2024 9:54a m abd October 08, 2024 8:26a m BL KNEES October 11, 2024 8:04a m BL KNEES October 18, 2024 8:08 am JACKHAMMER SPLITTER OPERATOR. 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 ONLY October 18, 2024 10:26am EORDER November 19, 2024 8: 55am PRE OP November 22, 2024 11 :24am PRE OP November 22, 2024 11 :55am bilateral myringotomy with tubes November 30, 2024 3:33pm PAIN- COPY PCP December 10, 2024 9:34am 8 WK December 13, 2024 11:08am BL KNEES January 07, 2025 9: 00am Reason for Visit Admit Date Easy bruising September 30, 2024 8:36 am Left knee DJD October 04, 2024 8:04 am Right knee DJD October 04, 2024 8:04 am Obesity October 04, 2024 8:04 am Easy bruising October 06, 2024 9:54a m Left knee DJD October 11, 2024 8:04a m Right knee DJD October 11, 2024 8:04a m Left knee DJD October 18, 2024 8:08 am Right knee DJD October 18, 2024 8:08 am Essential hypertension October 18, 2024 1 0:26am Postoperative primary hypothyroidism Oct 10:26am Premature ventricular contractions October 18, 2024 10:26am Rheumatoid arthritis October 18, 2024 10: 26am Arthritis of both knees October 18, 2024 10:26am Establishing care with new doctor, adrienne moy for October 18, 2024 10:26am Moderate anxiety October 18, 2024 10:2 6am Polyneuropathy October 18, 2024 10:2 6am Right flank pain October 18, 2024 10:2 6am Essential hypertension December 13 11:08am Postoperative primary hypothyroidism Sep tember 2024 11:08am Premature ventricular contractions Septe mber 2024 11:08am Rheumatoid arthritis December 13, 2024 11:08am Arthritis of both knees December 13 025 11:08am Moderate anxiety December 13, 2024 11:08am Polyneuropathy December 13, 2024 11:08am Morbid obesity with BMI of 40.0-44.9, ad ult December 13, 2024 11:08am S/P tympanic tube insertion December 11:08am Left knee DJD January 07, 2025 9: 00am Right knee DJD January 07, 2025 9: 00am Additional Source Comments INFORMATION SOURCE (unrecogn ized section and content) DATE CREATED AUTHOR 05/21/2021 [facility] DATE CREATED AUTHOR AUTHOR'S ORGANIZ ATION 04/27/2023 [facility] DATE CREATED AUTHOR AUTHOR'S ORGANIZ ATION 01/10/2025 [facility] Goals (unrecognized section and content) [...] Heredia MD Other Provider Active Sonya Lombardo JACKHAMMER SPLITTER OPERATOR, JACKHAMMER SPLITTER OPERATOR-C Other Provider Active Neo ROCK Other Provider [...] Heredia MD Other Provider Active Sonya Lombardo JACKHAMMER SPLITTER OPERATOR, JACKHAMMER SPLITTER OPERATOR-C Other Provider Active [employer] Other Provider Active Team Status: Inactive Member Role Status Dates Dr. Win Matso MD Primary Care Provi ralph, Referring Provider Active Dr. Stiven Gunn , DO Admit Provider, Other Provider Active Dr. Barbara Vernon MD Other Provider Active Dr. Monty Hernández , DO Other Provider Active Dr. Leidy Salazar MD Other Provider Active Dr. eLidy Glover MD Other Provider Active Dr. Scarlet [...] Heredia MD Other Provider Active Sonya Lombardo JACKHAMMER SPLITTER OPERATOR, JACKHAMMER SPLITTER OPERATOR-C Other Provider Active [employer] Other Provider [...] October 05, 2024 End: October 05, 2024 Team Status: Inactive Member Role/Relationship Status Dates Dr. Win Matos MD Primary Care Provider Active Start: October 08, 2024 End: October 08, 2024 Dr. Tony Quintana DO Emergency Provider Active Start: October 08, 2024 End: October 08, 2024 Team Status: Inactive Member Role/Relationship Status [...] 2024 End: October 04, 2024 Team Status: Inactive Member Role/Relationship Status [...] October 05, 2024 End: October 05, 2024 Team Status: Inactive Member Role/Relationship Status Dates Dr. Win Mtaos MD Primary Care Provider Active Start: October 06, 2024 End: October 06, 2024 Dr. Win Matos MD Referring Provider Active Start: October 06, 2024 End: October 06, 2024 Dr. Bar Isbell MD Attending Provider Active Start: October 06, 2024 End: October 06, 2024 Team Status: Inactive Member Role/Relationship Status Dates Dr. Win Matos MD Primary Care Provider Active Start: October 08, 2024 End: October 08, 2024 Dr. Tony Quintana DO Emergency Provider Active Start: October 08, 2024 End: October 08, 2024 Team Status: Inactive Member Role/Relationship Status Dates Dr. Win Matos MD Primary Care Provider Active Start: October 11, 2024 End: October 11, 2024 Dr. Win Matos MD Referring Provider Active Start: October 11, 2024 End: October 11, 2024 Dr. Abisai Roman DO Attending Provider Active Start: October 11, 2024 End: October 11, 2024 Team Status: Inactive Member Role/Relationship Status Dates Dr. Win Matos MD Primary Care Provider Active Start: October 08, 2024 End: October 08, 2024 Dr. Tony Quintana DO Attending Provider Active Start: October 08, 2024 End: October 08, 2024 Dr. Tony Quintana DO Emergency Provider Active Start: October 08, 2024 End: October 08, 2024 Team Status: Inactive Member Role/Relationship Status Dates Dr. Win Matos MD Primary Care Provider Active Start: October 18, 2024 End: October 18, 2024 Dr. Win Matos MD Referring Provider Active Start: October 18, 2024 End: October 18, 2024 Dr. Abisai Roman DO Attending Provider Active Start: October 18, 2024 End: October 18, 2024 Team Status: Inactive Member Role/Relationship Status Dates Dr. Win Matos MD Primary Care Provider Active Start: October 18, 2024 End: October 18, 2024 Dr. Win Matos MD Referring Provider Active Start: October 18, 2024 End: October 18, 2024 Dr. Barabra Vernon MD Attending Provider Active Start: October 18, 2024 End: October 18, 2024 Team Status: Active Member Role/Relationship Status Dates Dr. Barbara Vernon MD Primary Care Provider Active Team Status: [...] 2024 End: October 04, 2024 Team Status: Inactive Member Role/Relationship Status [...] October 05, 2024 End: October 05, 2024 Team Status: Inactive Member [...] MD Primary Care Provider Active Start: October 08, 2024 End: October 08, 2024 Dr. Tony Quintana DO Attending Provider Active Start: October 08, 2024 End: October 08, 2024 Dr. Tony Quintana DO Emergency Provider Active Start: October 08, 2024 End: October 08, 2024 Team Status: Inactive Member Role/Relationship Status Dates Dr. Win Matos MD Primary Care Provider Active Start: October 11, 2024 End: October 11, 2024 Dr. Win Matos MD Referring Provider Active Start: October 11, 2024 End: October 11, 2024 Dr. Abisai Roman DO Attending Provider Active Start: October 11, 2024 End: October 11, 2024 Team Status: Inactive Member Role/Relationship Status Dates Dr. Win Matos MD Primary Care Provider Active Start: October 18, 2024 End: October 18, 2024 Dr. Win Matos MD Referring Provider Active Start: October 18, 2024 End: October 18, 2024 Dr. Abisai Roman DO Attending Provider Active Start: October 18, 2024 End: October 18, 2024 Team Status: Inactive Member Role/Relationship Status Dates Dr. Win Matos MD Primary Care Provider Active Start: October 18, 2024 End: October 18, 2024 Dr. Win Matos MD Referring Provider Active Start: October 18, 2024 End: October 18, 2024 Dr. Barbara Vernon MD Attending Provider Active Start: October 18, 2024 End: October 18, 2024 Team Status: Inactive Member Role/Relationship Status Dates Dr. Win Matos MD Primary Care Provider Active Start: November 19, 2024 End: November 19, 2024 Dr. Barbara Vernon MD Attending Provider Active Start: November 19, 2024 End: November 19, 2024 Dr. Barbara Vernon MD Referring Provider Active Start: November 19, 2024 End: November 19, 2024 Team Status: Active Member Role/Relationship Status Dates Dr. Javi Lenz MD Attending Provider Activ e Start: November 22, 2024 Dr. Javi Lenz MD Referring Provider Activ e Start: November 22, 2024 Dr. Barbara Vernon MD Primary Care Provider Active Start: November 22, 2024 Team Status: Inactive Member Role/Relationship Status Dates Dr. Javi Lenz MD Attending Provider Activ e Start: November 22, 2024 End: November 22, 2024 Dr. Javi Lenz MD Referring Provider Activ e Start: November 22, 2024 End: November 22, 2024 Dr. Barbara Vernon MD Primary Care Provider Active Start: November 22, 2024 End: November 22, 2024 Team Status: Active Member Role/Relationship Status Dates Dr. Barbara Vernon MD Primary Care Provider Active Start: November 22, 2024 Dr. Papi Thomas MD Attending Provider Active S tart: November 22, 2024 Dr. Javi Lenz MD Referring Provider Activ e Start: November 22, 2024 Team Status: Inactive Member Role/Relationship Status Dates Dr. Barbara Vernon MD Primary Care Provider Active Start: November 30, 2024 End: November 30, 2024 Dr. Javi Lenz MD Attending Provider Activ e Start: November 30, 2024 End: November 30, 2024 Dr. Javi Lenz MD Referring Provider Activ e Start: November 30, 2024 End: November 30, 2024 Team Status: Active Member Role/Relationship Status Dates Dr. Barbara Vernon MD Primary Care Provider Active Start: December 10, 2024 Dr. Kristin Mckay MD Attending Provider Active Start: December 10, 2024 Dr. Kristin Mckay MD Referring Provider Active Start: December 10, 2024 Team Status: Inactive Member Role/Relationship Status Dates Dr. Win Matos MD Referring Provider Active Start: December 13, 2024 End: December 13, 2024 Dr. Barbara Vernon MD Primary Care Provider Active Start: December 13, 2024 End: December 13, 2024 Dr. Barbara Vernon MD Attending Provider Active Start: December 13, 2024 End: December 13, 2024 Team Status: Inactive Member Role/Relationship Status Dates Dr. Barbara Vernon MD Primary Care Provider Active Start: December 10, 2024 End: December 10, 2024 Dr. Kristin Mckay MD Attending Provider Active Start: December 10, 2024 End: December 10, 2024 Dr. Kristin Mckay MD Referring Provider Active Start: December 10, 2024 End: December 10, 2024 Team Status: Active Member Role/Relationship Status Dates Dr. Barbara Vernon MD Primary care physician Active Team Status: Inactive Member Role/Relationship Status Dates Dr. Win Matos MD Primary care physician Active Start: September 30, 2024 End: September 30, 2024 Dr. Win Matos MD Referring Provider Active Start: September 30, 2024 End: September 30, 2024 Dr. Bar Isbell MD Attending physician Active Start: September 30, 2024 End: September 30, 2024 Team Status: Active Member Role/Relationship Status Dates Dr. Win Matos MD Primary care physician Active Start: September 30, 2024 Dr. Bar Isbell MD Attending physician Active Start: September 30, 2024 Dr. Bar Isbell MD Referring Provider Active Start: September 30, 2024 Team Status: Inactive Member Role/Relationship Status Dates Dr. Win Matos MD Primary care physician Active Start: October 04, 2024 End: October 04, 2024 Dr. Wni Matos MD Referring Provider Active Start: October 04, 2024 End: October 04, 2024 Dr. Abisai Roman DO Attending physician Active Start: October 04, 2024 End: October 04, 2024 Team Status: Inactive Member Role/Relationship Status Dates Dr. Win Matos MD Primary care physician Active Start: October 05, 2024 End: October 05, 2024 Dr. Win Matos MD Nurse Practitioner Active Start: October 05, 2024 End: October 05, 2024 Dr. Javi Lenz MD Attending physician Acti ve Start: October 05, 2024 End: October 05, 2024 Dr. Javi Lenz MD Referring Provider Activ e Start: October 05, 2024 End: October 05, 2024 Team Status: Inactive Member Role/Relationship Status Dates Dr. Win Matos MD Primary care physician Active Start: October 06, 2024 End: October 06, 2024 Dr. Win Matos MD Referring Provider Active Start: October 06, 2024 End: October 06, 2024 Dr. Bar Isbell MD Attending physician Active Start: October 06, 2024 End: October 06, 2024 Team Status: Inactive Member Role/Relationship Status Dates Dr. Win Matos MD Primary care physician Active Start: October 08, 2024 End: October 08, 2024 Dr. Tony Quintana DO Attending physician Active Start: October 08, 2024 End: October 08, 2024 Dr. Tony Quintana DO Emergency Department Physician Active Start: October 08, 2024 End: October 08, 2024 Team Status: Inactive Member Role/Relationship Status Dates Dr. Win Matos MD Primary care physician Active Start: October 11, 2024 End: October 11, 2024 Dr. Win Matos MD Referring Provider Active Start: October 11, 2024 End: October 11, 2024 Dr. Abisai Roman DO Attending physician Active Start: October 11, 2024 End: October 11, 2024 Team Status: Inactive Member Role/Relationship Status Dates Dr. Win Matos MD Primary care physician Active Start: October 18, 2024 End: October 18, 2024 Dr. Win Matos MD Referring Provider Active Start: October 18, 2024 End: October 18, 2024 Dr. Abisai Roman DO Attending physician Active Start: October 18, 2024 End: October 18, 2024 Team Status: Inactive Member Role/Relationship Status Dates Dr. Win Matos MD Primary care physician Active Start: October 18, 2024 End: October 18, 2024 Dr. Win Matos MD Referring Provider Active Start: October 18, 2024 End: October 18, 2024 Dr. Barbara Vernon MD Attending physician Active Start: October 18, 2024 End: October 18, 2024 Team Status: Inactive Member Role/Relationship Status Dates Dr. Win Matos MD Primary care physician Active Start: November 19, 2024 End: November 19, 2024 Dr. Barbara Vernon MD Attending physician Active Start: November 19, 2024 End: November 19, 2024 Dr. Barbara Vernon MD Referring Provider Active Start: November 19, 2024 End: November 19, 2024 Team Status: Inactive Member Role/Relationship Status Dates Dr. Javi Lenz MD Attending physician Acti ve Start: November 22, 2024 End: November 22, 2024 Dr. Javi Lenz MD Referring Provider Activ e Start: November 22, 2024 End: November 22, 2024 Dr. Barbara Vernon MD Primary care physician Active Start: November 22, 2024 End: November 22, 2024 Team Status: Active Member Role/Relationship Status Dates Dr. Barbara Vernon MD Primary care physician Active Start: November 22, 2024 Dr. Papi Thomas MD Attending physician Active Start: November 22, 2024 Dr. Javi Lenz MD Referring Provider Activ e Start: November 22, 2024 Team Status: Inactive Member Role/Relationship Status Dates Dr. Barbara Vernon MD Primary care physician Active Start: November 30, 2024 End: November 30, 2024 Dr. Javi Lenz MD Attending physician Acti ve Start: November 30, 2024 End: November 30, 2024 Dr. Javi Lenz MD Referring Provider Activ e Start: November 30, 2024 End: November 30, 2024 Team Status: Inactive Member Role/Relationship Status Dates Dr. Barbara Vernon MD Primary care physician Active Start: December 10, 2024 End: December 10, 2024 Dr. Kristin Mckay MD Attending physician Active Start: December 10, 2024 End: December 10, 2024 Dr. Kristin Mckay MD Referring Provider Active Start: December 10, 2024 End: December 10, 2024 Team Status: Inactive Member Role/Relationship Status Dates Dr. Win Matos MD Referring Provider Active Start: December 13, 2024 End: December 13, 2024 Dr. Barbaar Vernon MD Primary care physician Active Start: December 13, 2024 End: December 13, 2024 Dr. Barbara Vernon MD Attending physician Active Start: December 13, 2024 End: December 13, 2024 Team Status: Inactive Member Role/Relationship Status Dates Dr. Barbara Vernon MD Primary care physician Active Start: January 07, 2025 End: January 07, 2025 Dr. Barbara Vernon MD Referring Provider Active Start: January 07, 2025 End: January 07, 2025 Dr. Abisai Roman DO Attending physician Active Start: January 07, 2025 End: January 07, 2025 Source Comments (unrecognize d section and content) In the event this informatio n is protected by the Federal Confidentiality of Alcohol and Drug Abuse Patient Records regulations: The Federal rules restrict any use of the information to criminally investigate or prosecute any alcohol or drug abuse patient.[facility] Reason for Visit (unrecogniz ed section and [...] BE BASED ON THE PRIMARY CLINICAL RECORDS. [facility]. provides no warranty or guarantee of the accuracy or completeness of information in this document.
== END | disposition home or self-care (01) ==
LOC: MTLAB 13:43
PROVIDERS: PCP Internal Medicine; Referring Provider Internal Medicine Rheumatology; Visit Provider Internal Medicine Rheumatology
DX: M06.4 Inflammatory polyarthropathy (principal); Z79.899 Other long term (current) drug therapy
CPT/HCPCS: 36415; 80053; 85025